=== PATIENT | male | born 1975 | race Caucasian/White ===

== ENCOUNTER 2018-11-03 06:35 | Inpatient (IN) | payer MEDICAID, OTHER ==
[~2018-11-03] VITALS: Ht 165.1 cm; Wt 76.1 kg
[2018-11-03] MEDS ORDERED: SOD CHLORIDE 0.9% 1,000 ML IV STA (06:49)
[2018-11-03] MEDS ORDERED: NALOXONE (0.4 MG/ML) INJ IV PRN (07:00)
[2018-11-03] MEDS ORDERED: FLUMAZENIL 0.5 MG INJ IV ONE (07:00)
[2018-11-03] MEDS ORDERED: SODIUM CHLORIDE 0.9% 1L BAG IV* STA (07:38)
[2018-11-03] MEDS ORDERED: CEFEPIME 2GM/50 ML (PMX) 50 ML IVPB STA (07:38)
--- NOTE | 2018-11-03 07:40 | ERD ---
ER Documentation Chief Complaint Chief Complaint sudden onset aloc and apnea per staff. no trauma. 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 The patient is normally awake and alert and in conversive according to the [place]. He said they checked on him this morning and they found him nearly apneic. EMS arrived and stated that his blood sugar was 150, he had very slow respirations they began bagging him through his trach. Patient did not lose his pulse but was slightly hypotensive. On arrival the patient is completely unresponsive. The [place] he says they did not give him any medication last night or overnight ROS All systems reviewed and are negative except as per history of present illness. Medications Home Meds Reported Medications Zinc Sulfate* (Zinc Sulfate*) 220 Mg Tablet, 220 MG GTB DAILY, TAB STOP TAKING 11/21/18 11/03/18 Ascorbic Acid* (Vitamin C*) 500 Mg Capsule.sa, 500 MG GTB DAILY, CAP 11/03/18 Valproic Acid* (Valproic Acid* Liq) 250 Mg/5 Ml Syrup, 10 ML GTB BID, ML 11/03/18 Cran/Vitc/Mannose/Inulin/Brom (Uti-Stat Liquid) 3,875 Mg/30 Ml Liquid, 30 ML GTB DAILY 11/03/18 Acetaminophen* (Acetaminophen*) 500 MG Extra Strength Tablet, 1000 MG GTB Q4H PRN for PAIN -11/21, TAB 11/03/18 Acetaminophen* (Tylenol*) 325 Mg Tablet, 650 MG GTB BID PRN for PAIN AND OR ELEVATED TEMP, TAB 11/03/18 Acetaminophen* (Tylenol*) 325 Mg Tablet, 650 MG GTB Q4H PRN for MILD PAIN LEVEL 1-3, TAB AND FEVER 101F,STOP DATE 12/21/18 11/03/18 Acetaminophen* (Tylenol*) 325 Mg Tablet, 650 MG GTB NEEDED PRN for TRACH TUBE CHANGE, TAB 11/03/18 Risperidone* (Risperdal*) 1 Mg Tablet, 2 MG GTB DAILY, TAB STOP DATE 11/05/18 11/03/18 Amino Acids/Protein Hydrolys (PRO-STAT LIQUID) 30 Ml Liquid.pkt, 30 ML GTB BID 11/03/18 Hydrocodone/Acetaminophen ([place] 5-325 Tablet) 1 Each Tablet, 1 EACH GTB Q6H PRN for PAIN 7-10, TAB 11/03/18 Multivitamin with Minerals (Multivitamins with Minerals) 1 Each Tablet, 1 EACH GTB DAILY, TAB 11/03/18 Magnesium Hydroxide* (Milk Of Magnesia*) 400 Mg/5 Ml Oral.susp, 30 ML GTB NEEDED, ML 11/03/18 Heparin Sodium,Porcine/Pf (HEPARIN SOD 5,000 UNIT/ 0.5 ML) 5,000 Unit/0.5 Ml Vial, 5000 UNIT IJ Q12H, VIAL 11/03/18 Gabapentin* (Gabapentin*) 300 Mg Capsule, 600 MG GTB BID, #180 CAP 11/03/18 Mineral Oil* (Fleet* Mineral Oil Enema) Unknown Strength Oil, 1 APPLIC OK NEEDED PRN for CONSTIPATION, ENEMA 11/03/18 Bisacodyl (Dulcolax) 10 Mg Supp.rect, 10 MG RC PRN, SUPP.RECT 11/03/18 Docusate Sodium* (Colace*) 100 Mg Capsule, 200 MG GTB QHS, #60 CAP 11/03/18 Clonidine Hcl* (Clonidine Hcl*) 0.1 Mg Tab, 0.2 MG GTB Q8H PRN for HTN, TAB HOLD FOR SBPBELOW 110 OR HR BELOW 60 11/03/18 Chlorhexidine Gluconate (Periogard) 473 Ml Mouthwash, 15 ML MM Q12H, BOTTLE 11/03/18 Atorvastatin* (Atorvastatin*) 40 Mg Tablet, 80 MG GTB QHS, #30 TAB 11/03/18 Albuterol Sulfate* (Albuterol Sulfate* Neb) 0.083%-3 Ml Neb, 2.5 MG NEB Q6H PRN for WHEEZING AND SOB, #30 VIAL AND NEEDED Q3H 11/03/18 Lactobacillus Acidophilus/Pect (Acidophilus-Pectin Capsule) 1 Each Capsule, 1 EACH GTB DAILY, CAP 11/03/18 Discontinued Reported Medications Pantoprazole Sodium (Protonix) 40 Mg Granpkt.dr, 40 MG GTB DAILY 11/03/18 Lactobacillus Acidophilus* (Lactinex*) 1 Tab Chew, 1 TAB GTB DAILY, TAB 11/03/18 Allergies Allergies: Coded Allergies: No Known Allergy (Unverified , 11/03/18) PMhx/Soc History of Surgery: Yes (TRACHOSTOMY, GASTROSTOMY) Anesthesia Reaction: No Hx Neurological Disorder: Yes (SEIZURE, AMS, HYDROCEPHALUS) Hx Respiratory Disorders: Yes (RESP FAILURE) Hx Cardiac Disorders: Yes (HYPERLIPIDEMIA) Hx Psychiatric Problems: Yes (DEPRESSION, PSYCHOSIS) Hx Miscellaneous Medical Probl: Yes (GERD, DYSPHAGIA) Hx Alcohol Use: No Hx Substance Use: No Hx Tobacco Use: No Smoking Status: Never smoker FmHx Unable to obtain due to mental status Physical Exam Vitals Vital Signs Date Temp Pulse Resp B/P (MAP) Pulse Ox O2 O2 Flow FiO2 Time Delivery Rate 11/03/18 102 22 104/72 100 Mechanical 09:30 (83) Ventilator 11/03/18 101 14 99 40 09:16 11/03/18 100 40 08:45 11/03/18 100 50 08:11 11/03/18 101 20 113/80 100 Mechanical 08:00 (91) Ventilator 11/03/18 96 14 100 100 06:50 11/03/18 99.7 97 16 68/46 (53) 100 06:48 11/03/18 99.7 96 18 68/46 (53) 100 Mechanical 06:48 Ventilator Physical Exam Const: [Well-developed, well-nourished] Head: [Atraumatic, normocephalic] Eyes: [Normal Conjunctiva, bilateral pupils are mid range and very sluggish ENT: [Normal External Ears, Nose and Mouth, moist mucus membranes.] Neck: [Full range of motion. No meningismus, no lymphadenopathy, t racheostomy is intact no signs of infection.] Resp: [Clear to auscultation bilaterally, no wheezing, rhonchi, rales] Cardio: [Regular rate and rhythm, no murmurs, S1 S2 present] Abd: [Soft, nondistended normal bowel sounds Skin: [No petechiae or rashes, no ecchymosis , no maculopapular rash] Back: Normal inspection Ext: [No cyanosis, or edema, normal inspection, Neur: GCS of 3 Psych: Unable to assess Result Diagram: 11/03/1853 11/03/1853 Results 24 hrs Laboratory Tests Test 11/03/18 06:53 11/03/18 07:35 11/03/18 08:03 White Blood Count 9.9 10^3/ul Red Blood Count 4.19 10^6/ul Hemoglobin 12.9 g/dl Hematocrit 40.7 % Mean Corpuscular Volume 97.1 fl Mean Corpuscular Hemoglobin 30.8 pg Mean Corpuscular 31.7 g/dl Hemoglobin Concent Red Cell Distribution Width 12.3 % Platelet Count 166 10^3/UL Mean Platelet Volume 10.5 fl Immature Granulocytes % 11.600 % Neutrophils % 62.3 % Segmented Neutrophils % (Manual) 62 % Band Neutrophils % (Manual) 3 % Lymphocytes % 10.4 % Lymphocytes % (Manual) 14 % Reactive Lymphocytes % (Manual) 1 % Monocytes % 14.0 % Monocytes % (Manual) 6 % Eosinophils % 1.5 % Eosinophils % (Manual) 6 % Basophils % 0.2 % Myelocytes % (Manual) 5 % Promyelocytes % (Manual) 3 % Nucleated Red Blood Cells % 0.0 /100WBC Immature Granulocytes # 1.150 10^3/ul Neutrophils # 6.2 10^3/ul Neutrophils # (Manual) 6.2 10^3/ul Band Neutrophils # 0.2 10^3/ul Lymphocytes (Manual) 1.3 10^3/ul Lymphocytes # 1.0 10^3/ul Reactive Lymphocytes # 0.0 10^3/ul Monocytes # 1.4 10^3/ul Monocytes # (Manual) 0.5 10^3/ul Eosinophils # 0.2 10^3/ul Basophils # 0.0 10^3/ul Myelocytes # 0.4 10^3/ul Promyelocytes # 0.2 10^3/ul Nucleated Red Blood Cells # 0.0 10^3/ul Platelet Estimate NORMAL Giant Platelets 1 % Polychromasia 1+ Anisocytosis 1+ Prothrombin Time 14.5 Sec Prothrombin Time Ratio 1.1 INR International 1.12 Normalized Ratio Activated Partial Thromboplast 37.1 Sec Time Sodium Level 145 mmol/L Potassium Level 3.9 mmol/L Chloride Level 103 mmol/L Carbon Dioxide Level 26 mmol/L Anion Gap 16 Blood Urea Nitrogen 14 mg/dl Creatinine 1.69 mg/dl Est Glomerular Filtrat 45 mL/min Rate mL/min Glucose Level 142 mg/dl Calcium Level 9.0 mg/dl Total Bilirubin 0.3 mg/dl Direct Bilirubin 0.00 mg/dl Indirect Bilirubin 0.3 mg/dl Aspartate Amino 61 IU/L Transf (AST/SGOT) Alanine 51 IU/L Aminotransferase (ALT/SGPT) Alkaline Phosphatase 98 IU/L Ammonia 26 umol/l Troponin I 0.335 ng/ml Total Protein 7.3 g/dl Albumin 3.8 g/dl Globulin 3.50 g/dl Albumin/Globulin Ratio 1.08 POC Venous Lactate 3.4 mmol/L Urine Color YELLOW Urine Clarity SLIGHTLY CLOUDY Urine pH 8.0 Urine Specific [place] 1.009 Urine Ketones NEGATIVE mg/dL Urine Nitrite NEGATIVE mg/dL Urine Bilirubin NEGATIVE mg/dL Urine Urobilinogen NEGATIVE mg/dL Urine Leukocyte Esterase NEGATIVE Radha/ul Urine Microscopic RBC 5 /HPF Urine Microscopic WBC 6 /HPF Urine Amorphous Crystals FEW /HPF Urine Bacteria FEW /HPF Urine Hemoglobin 1+ mg/dL Urine Glucose 1+ mg/dL Urine Total Protein 2+ mg/dl Current Medications Medications Dose Sig/Hugo Start Time Status Last (Trade) Ordered Route PRN Stop Time Admin Dose Reason Admin Naloxone 1 mg Q2M PRN 11/03/18 11/03/18 HCl IV LETHARGY 07:00 07:19 (Narcan) Sodium 1,000 ml @ Q1H STAT 11/03/18 DC 11/03/18 Chloride 1,000 mls/hr IV 06:49 07:16 11/03/18 07:48 Flumazenil 0.5 mg ONCE ONCE 11/03/18 DC 11/03/18 (Romazicon) IV 07:00 07:18 11/03/18 07:01 Sodium 2,180 ml BOLUS OVER 2 11/03/18 DC 11/03/18 Chloride HOURS STAT 07:38 08:11 (NS) IV* 11/03/18 08:06 Cefepime HCl 50 ml @ ONCE STAT 11/03/18 DC 11/03/18 100 mls/hr IVPB 07:38 08:21 11/03/18 08:07 Vancomycin 250 ml @ ONCE ONCE 11/03/18 DC 11/03/18 HCl 125 mls/hr IVPB 08:00 08:52 11/03/18 09:59 Enoxaparin 70 mg ONCE SC 11/03/18 11/03/18 Sodium 08:00 08:12 (Lovenox) Naloxone 1 mg ONCE ONCE 11/03/18 DC 11/03/18 HCl IV 08:30 08:21 (Narcan) 11/03/18 08:31 Procedures/MDM EKG: Rate/Rhythm: Sinus tachycardia QRS, ST, QT: NORMAL OK, QRS, QT] Impression: Sinus tachycardia [place] [id number] Radiology Main Line: [phone] DIAGNOSTIC IMAGING REPORT Patient: WILLIAMS JENNINGS : 1975 Age: 43 Sex: M [id number] DOS: 11/03/18 0649 Ordering MD: HENRY CARABALLO DO Location: E/R Room/Bed: PROCEDURE: CT head without intravenous contrast CLINICAL INDICATION: Altered mental status. COMPARISON: None TECHNIQUE: Axial CT images from skull base to vertex with coronal and sagittal reformats. DOSE: The estimated administered radiation dose was CTDI vol = 39.20 mGy. DLP = 554.95 mGy-cm. One or more of the following dose reduction techniques were used: automated exposure control, adjustment of the mA and/or kV according to patient size, or use of iterative reconstruction. DICOM images are available. FINDINGS: Parenchyma: There is a left transfrontal ventriculostomy catheter coursing through the left frontal horn terminating near the left foramen of [place]. Beam hardening artifact associated with endovascular coils at the expected location an anterior communicating artery aneurysm are identified. No acute hemorrhage, large territorial infarction, or mass. There is encephalomalacia of the right inferior frontal lobe. The fuller-white matter junctions are intact. No space occupying intra-axial masses or extra-axial fluid collections are present. There is mild parenchymal volume loss. Ventricles: No ventriculomegaly or ventricular effacement. Extra-axial spaces: No herniation or midline shift. Paranasal sinuses: Clear. Mastoids and middle ears: Trace effusions of the bilateral mastoid sinuses. Visualized orbits: Normal. Vessels: There is no calcified atherosclerotic arterial plaque identified in the internal carotid arteries. Bones: Normal. Extracranial soft tissues: Normal. Additional comment: None. IMPRESSION: 1. No acute intracranial pathology. 2. Left transfrontal ventriculostomy catheter coursing through the left frontal horn terminating near the left foramen of [place]ro. No evidence of hydrocephalus. 3. 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 4. Right inferior frontal lobe encephalomalacia. 5. Trace effusions of the bilateral mastoid sinuses. RPTAT: HRSR Lui Barron, Physician Date Time Electronically viewed and signed by Lui Barron Physician on 11/03/2018 07:28 RR/ CC: HENRY CARABALLO DO [id number] DIAGNOSTIC IMAGING REPORT Patient: WILLIAMS JENNINGS : 1975 Age: 43 Sex: M MR #: [id number] DOS: 11/03/18 0649 Ordering MD: HENRY CARABALLO DO Location: E/R Room/Bed: PROCEDURE: XR Chest. CLINICAL INDICATION: Altered mental status TECHNIQUE: Single frontal view of the chest. COMPARISON: None available FINDINGS: Support lines and tubes: Tracheostomy tube tip well positioned at the level of the mid tracheal shadow. Cardiac/vascular structures: Mildly enlarged cardiomediastinal silhouette. Pulmonary: Bilateral basilar airspace opacities. Small left pleural effusion. No evidence of pneumothorax. Osseous structures: Normal Soft tissues: Normal IMPRESSION: 1. Appropriate position of tracheostomy tube. 2. Bilateral basilar airspace opacities representing atelectasis or pneumonia. 3. Small left pleural effusion. RPTAT:AAJJ Cailin Harkins, Physician Date Time Electronically viewed and signed by Cailin Harkins Physician on 11/03/2018 07:22 MH/ CC: HENRY CARABALLO DO [id number] Patient received Narcan 1 mg IV and he woke up. He is now awake, responsive to pain, looking around. Patient has elevated lactate of 3.4. Admit MDM: Patient's infectious symptoms have not stabilized and the patient is at risk of rapid decompensation. The patient will be admitted for careful hydration, antibiotic therapy, and infectious source control. Severe Sepsis criteria: Infectious source: Pneumonia End organ damage indicated by: Elevated lactate Lactate > 2.0 mmol/L Hypotension (SBP < 90 or >40 mmHG drop or MAP < 65) Acute Resp Failure (sat < 92% w/o oxygen) Legal Cashier > 2.0 INR > 1.5 Plt < 100 Bili > 2 Sepsis Management: Time of recognition of severe sepsis: At time of lactate Within 3 hours of recognition: Blood cultures x 2 before broad-spectrum antibiotics: yes 30 ml/kg NS bolus completed Initial lactate 3.4 Repeat lactate pending Septic Shock Assessment: Any lactic acid > 4.0 no Persistent hypotension (SBP < 90 or 40 mmHg drop, MAP < 65) despite 30 mL/kg IV fluid bolusno A focused sepsis perfusion/reperfusion reassessment examination was performed post 30ml/kg bolus @: Temp, BP, HR, RR, Pox Persistent Hypotension Treatment: Comfort care no Hypotension caused by: pt. baseline, med-induced, erroneous value, condition other than infection no Refusal by patient/decision maker for: blood draw, IVF, Antibiotics, Pressorsno Central line Vasopressor started Norepinehrine I considered further perfusion assessment with CVP measurement, SCVO2, bedside ultrasound volume assessment, passive leg raise, trial of further fluid bolus and proceeded with. Accepting Care Team Current data and ongoing care discussed. Time: Admitting Physician: Floor Sweeper(s): Outstanding Data: none Critical Care Time: 35 minutes Treatments/Evaluations: Close monitoring and treatment of unstable vital signs, cardiorespiratory, and neurologic status, while maintaining tight balance of fluid, respiratory, and cardiac interventions. This includes the administration of emergency fluid management while maintaining close respiratory support as well as the provision of immediate and broad-spectrum antibiotic therapy, while performing a simultaneous assessment for possible sources in order to direct targeted therapy. This time includes discussing the case with the patient and the patient's family. This time also includes the consideration for invasive and chemical support to prevent cardiopulmonary collapse. This time does not include all procedures stated elsewhere in this record. This time also includes reviewing old records, labs and radiological studies. This time includes examining and re-examining the patient. Additionally, this time also includes arranging care with admitting and consulting physicians. Patient's mental status was due to narcotic overdose. long term report stating given many narcotics ever was found [place] on his as needed list. Narcan to reverse the overdose and he is now more awake and responsive. He does have bilateral opacities in his lungs with elevated lactic acid which may be due to pneumonia or just being in a hypoxic state. Patient's troponin is elevated at 0.33, likely due to cardiac sweating from sepsis/[place]ar[place] overdose. Treated with Lovenox 70 mg subcu Departure Diagnosis: Primary Impression: Sepsis Sepsis type: sepsis due to unspecified organism Qualified Codes: A41.9 - Sepsis, unspecified organism Additional Impressions: Narcotic overdose Encounter type: initial encounter Injury intent: accidental or unintentional Qualified Codes: T40.601A - Poisoning by unspecified n arcotics, accidental (unintentional), initial encounter Pneumonia Pneumonia type: due to unspecified organism Laterality: bilateral Lung location: lower lobe of lung Qualified Codes: J18.1 - Lobar pneumonia, unspecified organism Condition: Stable HENRY CARABALLO DO November 03, 2018 07:40
[2018-11-03] MEDS ORDERED: ENOXAPARIN 80 MG/0.8 ML SYG SC SCH ×2 (08:00→20:00)
[2018-11-03] MEDS ORDERED: VANCOMYCIN 1 GM (PMX) 250 ML IVPB ONE (08:00)
[2018-11-03] MEDS ORDERED: NALOXONE 2 MG SYG IV ONE (08:30)
[2018-11-03] MEDS ORDERED: LACTINEX GTB (09:57)
[2018-11-03] MEDS ORDERED: LACT1CAP4 GTB (09:58)
[2018-11-03] MEDS ORDERED: ALBU2.5V3 NEB (09:59)
[2018-11-03] MEDS ORDERED: ATOR40TA68 GTB (10:01)
[2018-11-03] MEDS ORDERED: CHLO473M2 MM (10:03)
[2018-11-03] MEDS ORDERED: CLON-379 GTB (10:05)
[2018-11-03] MEDS ORDERED: DOCU-144 GTB (10:06)
[2018-11-03] MEDS ORDERED: BISA10SU55 RC (10:07)
[2018-11-03] MEDS ORDERED: MINE133E23 PR (10:08)
[2018-11-03] MEDS ORDERED: HEPA500021 IJ (10:09)
[2018-11-03] MEDS ORDERED: GABA300C16 GTB (10:09)
[2018-11-03] MEDS ORDERED: MAGN400O19 GTB (10:10)
[2018-11-03] MEDS ORDERED: MULT-105 GTB (10:11)
[2018-11-03] MEDS ORDERED: AMIN30LI GTB (10:12)
[2018-11-03] MEDS ORDERED: HYDR-4011 GTB (10:12)
[2018-11-03] MEDS ORDERED: PANT40SU GTB (10:13)
[2018-11-03] MEDS ORDERED: RISP-7 GTB (10:15)
[2018-11-03] MEDS ORDERED: ACET-141 GTB (10:19)
[2018-11-03] MEDS ORDERED: ACET325T33 GTB ×3 (10:19)
[2018-11-03] MEDS ORDERED: CRAN3875 GTB (10:20)
[2018-11-03] MEDS ORDERED: VLP250480 GTB (10:21)
[2018-11-03] MEDS ORDERED: ASCO500C7 GTB (10:22)
[2018-11-03] MEDS ORDERED: ZINC220T GTB (10:23)
[2018-11-03] MEDS ORDERED: ACETAMINOPHEN 325 MG TAB PO PRN (10:30)
[2018-11-03] MEDS ORDERED: SOD CHLORIDE 0.9% 1,000 ML IV SCH (10:30)
[2018-11-03] MEDS ORDERED: ONDANSETRON 4 MG INJ IV PRN (10:30)
[2018-11-03] MEDS ORDERED: DOCUSATE SODIUM 100 MG CAP PO PRN (12:00)
[2018-11-03] MEDS ORDERED: BISACODYL 10 MG SUPP PR PRN (12:00)
[2018-11-03] MEDS ORDERED: VANCOMYCIN IV PER PHARMACY XX SCH (12:00)
[2018-11-03] MEDS ORDERED: hydrALAzine 20 MG INJ IV PRN (12:00)
[2018-11-03] MEDS ORDERED: NACL 0.9% 3 ML SYG IV SCH (12:00)
[2018-11-03] MEDS ORDERED: NITROGLYCERIN (SL) 0.4 MG TAB SL PRN (12:00)
[2018-11-03] MEDS: SOD CHLORIDE 0.45% 1,000 ML IV SCH (13:22)
[2018-11-03] MEDS: PIPER-TAZO 3.375 GM IV (PMX) 100 ML IVPB SCH ×2 (13:23→21:29)
[2018-11-03] MEDS: CHLORHEXIDINE GLUCONATE 15 ML UD CUP MM SCH ×2 (13:48→23:46)
--- NOTE | 2018-11-03 16:41 | HP ---
DATE OF ADMISSION: 11/03/2018 IDENTIFICATION: This is a 43-year-old male. CHIEF COMPLAINT: Sent in from nursing facility because of altered level of consciousness and apnea. 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 earlier today to the ER. The patient over there at baseline apparently is normal, awake and aler t and conversive according to the staff; however, they found an apneic this morning and he had altere d level of consciousness. They checked his blood sugar. It was actually in the normal range 150, bu t he appeared to have slow respirations and they actually began bagging him through the tracheostomy site. The patient was also found to have a slightly low blood pressure and the patient became more u nresponsive, so he was transferred over here to the ER. Over here, he had a head CT scan performed t hat showed no acute intracranial pathology, but there is a left transfrontal ventriculostomy catheter coursing into the left frontal horn terminating near the left foramen of Monro but no hydrocephalus noted. 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 The patient has chest x-ray as well that showed signs of bi lateral airspace opacity representing atelectasis or pneumonia and he was given antibiotics in the ER today. His white blood cell count was normal. He was also found with elevated troponin today 0.335 and lactic acid was high at 3.4. PAST MEDICAL HISTORY: As above, history of depression and seizures. ALLERGIES: NO KNOWN DRUG ALLERGIES. HOME MEDICATIONS: Based on records: 1. Albuterol nebulizer q.6 hours p.r.n. 2. Heparin 5000 units subcutaneously b.i.d. 3. Atorvastatin 80 mg at bedtime. 4. Clonidine 0.2 mg p.o. q.8 hours p.r.n. 5. Tylenol 650 p.r.n. 6. Gabapentin 600 mg b.i.d. 7. [place] 5/325 q.6 p.r.n. 8. Risperdal 2 mg daily. 9. Valproic acid 10 mL b.i.d. 10. Zinc sulfate 220 mg daily. 11. Chlorhexidine 15 mL q.12 hours. 12. Dulcolax 10 mg per rectal p.r.n. 13. Colace 200 mg at bedtime. 14. Lactobacillus supplementation. 15. Milk of Magnesia 30 mL daily p.r.n. 16. Fleet enema per rectal as needed p.r.n. 17. Vitamin C 500 mg daily. 18. Multivitamin 1 tab daily. 19. Pro-Stat liquid 30 mL b.i.d. PAST SURGICAL HISTORY: Again, he has had AGRICULTURAL EQUIPMENT DESIGN ENGINEER shunt placement apparently about 3 months ago at outside hospital secondary to the subarachnoid hemorrhage, also tracheostomy placed in the past and G-tube p lacement. SOCIAL HISTORY: Negative for smoking or drinking or IV drug abuse. PHYSICAL EXAMINATION: VITAL SIGNS: Today, T-max 99.7, pulse 97 to 102, respirations 14 to 22, blood pressure is 68 to 113 systolic over 46 to 80 diastolic, satting at 100% on mechanical ventilation, FiO2 of 40%. GENERAL: The patient is lying in bed, opens eyes, but nonconversant. Family is at bedside. HEENT: Pupils are equal, round, reactive to light. Extraocular muscles are intact. NECK: Supple. Tracheostomy site looks clean, dry and intact. RESPIRATORY: Slightly distant breath sounds bilaterally. CARDIOVASCULAR: S1, S2 heard. No murmurs, rubs or gallops. ABDOMEN: G-tube in place. Normal bowel sounds. No rebound or guarding. MUSCULOSKELETAL: No lower extremity edema bilaterally. NEUROLOGIC: Unable to fully assess. Of note, baseline GCS is 3. LABORATORIES: Sodium 145, potassium 3.9, chloride 103, CO2 of 26, BUN 14, creatinine 1.69, glucose 1 42. LFTs are normal. First troponin is elevated at 0.335. CBC is normal. Coags are within normal limits. UA shows nitrites negative, leukocyte esterase positive. Valproic acid level less than 32. DIAGNOSTIC DATA: We mentioned the imaging findings. ASSESSMENT AND PLAN: A 43-year-old male with history of subarachnoid hemorrhage with subsequent AGRICULTURAL EQUIPMENT DESIGN ENGINEER s arreola, tracheostomy placement, G-tube placement, hypertension, high cholesterol, depression, gastroeso phageal reflux disease, who comes in from outside facility with signs of pneumonia, elevated troponin s, slight lactic acidosis and renal insufficiency. 1. Apnea and altered mental status again likely secondary to combination of patient's pneumonia and possible non-ST elevation myocardial infarction. Again for his pneumonia, we will admit him and put him on broad-spectrum antibiotics. Follow up TSH, A1c, lipid panel. Consider starting low-dose IV f luids. We will give Tylenol p.r.n. pain and fevers. 2. Elevated troponins again signs of non-ST elevation myocardial infarction. We will continue to tr end his troponins. We will give him a dose of Lovenox and obtain a cardiology consult and echocardio gram as well. Put him on high dose aspirin and high dose Lipitor, Morphine p.r.n., nitroglycerin p.r .n. 3. History of hypertension. Again, blood pressure is presently stable. Continue to monitor for now . He is on hydralazine p.r.n. 4. History of high cholesterol. Continue Lipitor. Follow up lipid panel. 5. Tracheostomy placement. Continue oxygen supplementation via trach via mechanical ventilation. C onsider pulmonary consult. 6. Gastrointestinal prophylaxis. Pepcid. 7. Deep venous thrombosis prophylaxis. He is getting a dose of Lovenox. 8. History of gastroesophageal reflux disease. Again, he is on H2 kendall. 9. History of depression. Ativan p.r.n. 10. Renal insufficiency. Creatinine is 1.69. We will get a renal consult. Continue IV fluids. Dictated By: BRANDT REILLY/PRISCILLA Conf#: [id number] DID#: [id number]
[2018-11-03] MEDS: VANCOMYCIN 750 MG (PMX) 250 ML IVPB SCH (17:41)
[2018-11-03 18:08] VITALS: BP 131/83; PULSE 99; RESP 20
[2018-11-03 19:25] VITALS: RESP 17
--- NOTE | 2018-11-03 19:59 | CONS ---
DATE OF ADMISSION: 11/03/2018 DATE OF CONSULTATION: 11/03/2018 TYPE OF CONSULTATION: Nephrology. PHYSICIAN REQUESTING CONSULT: Brandt Ramírez MD HISTORY OF PRESENT ILLNESS: This is a 43-year-old male with past medical history of subarachnoid hem orrhage, history of PREPARATION ROOM MANAGER shunt, history of ventilator dependent respiratory failure, history of encepha lopathy, history of dyslipidemia, history of hypertension, who presents from [facility] nurse [facility] Emergency Room. The patient apparently was at his baseline, is awake and alert . This morning, the patient was noted to be at a slow respirations, is noted to be hypertensive. Th e patient is more unresponsive. As a result, he was transferred to emergency room. Upon arrival, th e patient had a CT scan which showed no acute intracranial pathology. The patient had evidence of le ft ventriculostomy catheter with left frontal horn. No evidence of hydrocephalus. The patient also had a chest x-ray which showed bilateral airspace opacities. In the emergency room, the patient was started on antibiotics for possibility of pneumonia. In terms of patient's renal history, the patient's previous baseline creatinine is unknown. On admis gertrudis, the patient had a creatinine 1.69 mg/dL. The patient was noted urinary retention and was place d on Higgins catheter with over 1 liter urinary output. There have been no reports of hemoptysis, gary temesis, hematochezia. PAST MEDICAL HISTORY: As stated above, history of intracranial hemorrhage, history of respiratory fa ilure, history of subarachnoid hemorrhage, history of seizure disorder, history of neuropathy. PAST SURGICAL HISTORY: Status post trach, status post PEG, status post PREPARATION ROOM MANAGER shunt. FAMILY HISTORY: No family history of kidney disease. SOCIAL HISTORY: Does not drink, smoke or do drugs. MEDICATIONS: Have been reviewed. REVIEW OF SYSTEMS: Unable due to lack review of systems as the patient is obtunded. Pertinent posit livia as obtained by reviewing medical records, speaking to hospital staff, stated in HPI, otherwise n egative. PHYSICAL EXAMINATION: VITAL SIGNS: Blood pressure is 122/89, respirations 20, pulse 88, temperature 97.4. HEENT: Head is normocephalic. NECK: Supple. HEART: Regular rate. LUNGS: Show diminished breath sounds at the base. ABDOMEN: Soft. Positive PEG. EXTREMITIES: Negative for clubbing, cyanosis. No edema. DERMATOLOGIC: No rashes. MUSCULOSKELETAL: No joint effusion. NEUROLOGIC: No change in exam. LABORATORY DATA: From 11/03/2018 was reviewed. The patient's lactic acid is 3.4. Urinalysis was re viewed. ASSESSMENT AND PLAN: This is a 43-year-old male who presents with: 1. Nonoliguric acute kidney injury with unknown baseline creatinine, possible chronic kidney disease . Etiology may be secondary to hemodynamics, sepsis. Urinalysis was reviewed, which showed evidence of mild pyuria and positive proteinuria. Plan at this point is to repeat UA with microanalysis, dunia ck urine electrolytes. We will check renal ultrasound to evaluate renal parenchyma. Otherwise, cont inue current treatment plan, supportive care and renally dose all medications. Continue antibiotics and IV fluids. 2. Anemia. Monitor hemoglobin and hematocrit levels. 3. Mineral bone disorder. Monitor calcium and phosphorus levels. 4. Lactic acidosis. Etiology is likely secondary to sepsis. Continue current IV fluids, IV antibio tics, monitor closely. 5. Ventilator dependent respiratory failure. Vent settings have been reviewed. Continue to monitor . 6. Acute encephalopathy. Etiology is unclear. Questionable sepsis. Continue to monitor. Continue neurology evaluation. 7. History of hypertension. The patient is currently hypotensive. 8. Dyslipidemia. Continue statin therapy. Thank you, Dr. Ramírez, for this interesting consult. It will be a pleasure to follow patient with you throughout the hospital course. Dictated By: RENEE DUONG/NTS Conf#: [id number] DID#: [id number] CC: BRANDT RAMÍREZ;*EndCC*
[2018-11-03 20:00] VITALS: BP 126/74; PULSE 104; PULSE 94; RESP 18
[2018-11-03 20:01] VITALS: Ht 165.1 cm; Wt 76.1 kg
[2018-11-03] MEDS ORDERED: ATORVASTATIN 80 MG TAB PO SCH (21:00)
[2018-11-03] MEDS ORDERED: NON-FORMULARY/PATIENT OWN MED (Amino Acids/Protein Hydrolys (Pro-Stat Liquid) 30 ML) GTB SCH (21:00)
[2018-11-03] MEDS ORDERED: HEPARIN 5,000 UNIT/0.5 ML VIAL SC SCH (21:00)
--- NOTE | 2018-11-03 21:15 | CONS ---
DATE OF ADMISSION: 11/03/2018 DATE OF CONSULTATION: 11/03/2018 TYPE OF CONSULTATION: Cardiology. REASON FOR CONSULTATION: Positive troponin, assess significance. REQUESTING PHYSICIAN: Brandt Ramírez MD, from the hospitalist service. HISTORY OF PRESENT ILLNESS: Mr. Churchill is a 43-year-old male with a history of subarachnoid hemorrhage occurred 3 months ago, status post SURVEYOR HELPER ROD shunt placement with subsequent trach placement at that time , dyslipidemia, hypertension who was brought into the ER from a longterm facility after being found apneic with altered mental state with his normal mental status is awake, alert, conversant. He states they checked his blood sugars which were normal. They bagged him for a short time from trach site and had been transferred to the ER. 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 The patient underwent a chest x-ray showing signs of bilateral air space opacity representing atelectasis or pneumonia that are regular white blood cell count and then he was noted to have a mildly elevated troponin of 0.335; therefore, cardiology consultation was requested. The patient's EKG had revealed sinus tachycardia, rate of 118, normal axis, normal intervals, incomplete right bundle branch block and secondary repolarization abnormalities. The patient has now been admitted to the floor and placed on telemetry revealing sinus tachycardia at this time. The patient does not clearly respond to questioning pertaining to chest pain or shortness of breath at this time. PAST MEDICAL HISTORY: As above in HPI. MEDICATIONS CURRENTLY IN HOSPITAL: 1. Pepcid 20 mg IV b.i.d. 2. Aspirin 325 mg daily. 3. Vitamin C 500 daily. 4. Zinc sulfate 220 mg daily. 5. Multivitamins and minerals. 6. Lipitor 80 mg at bedtime. 7. Heparin 5000 subQ q.12. 8. Folic acid 5 mg b.i.d. 9. Lovenox 70 mg subQ x1. 10. Zosyn. 11. Zofran. 12. Tylenol. 13. [place]. 14. DuoNeb. 15. Vancomycin. 16. Hydralazine. 17. Dulcolax. 18. Clonidine. 19. IV fluid hydration at 75 mL an hour. ALLERGIES: NO KNOWN DRUG ALLERGIES. SOCIAL HISTORY: No current tobacco, EtOH or illicit drug use. FAMILY HISTORY: No history of sudden cardiac or early CAD. REVIEW OF SYSTEMS: As above in HPI. CONSTITUTIONAL: No fevers, chills. PULMONARY: Chronic respiratory failure, status post trach. GASTROINTESTINAL: Dysphagia, status post G-tube. GENITOURINARY: No hematuria. MUSCULOSKELETAL: Degenerative joint disease. PSYCHIATRIC: No documented psych history. NEUROLOGIC: Altered mental state, history of subarachnoid hemorrhage. PHYSICAL EXAMINATION: VITAL SIGNS: Temperature 98.1, blood pressure 131/83, pulse 99, respiratory rate 20, satting 98%. GENERAL: The patient is alert, awake, but non-conversant. NECK: JVP is approximately 9 cm of water. Tracheostomy in place. CHEST: Upper chest rhonchus sounds. HEART: Tachycardic, regular rhythm, normal S1, S2, I/ systolic murmur, nondisplaced PMI. ABDOMEN: Positive bowel sounds, soft, positive G-tube. EXTREMITIES: No significant pitting edema, 1+ pulses bilateral posterior tibial. LABORATORY DATA: Most recently from today, white blood cell count 9.9, hemoglobin 12.9, platelet count of 166. Troponin from 0.335 subsequently increased INR 1.1. UA: Borderline positive. 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 Chest x-ray is revealing appropriate positioned tracheostomy tube, bilateral basilar airspace opacities. ELECTROCARDIOGRAM: As above in HPI. No further electrocardiograms for my review at this time. IMPRESSION: 1. Positive troponin with uptrending consistent with non-ST elevation myocardial infarction. 2. Abnormal electrocardiogram with incomplete right bundle branch block. 3. Tachycardia, mild. 4. Chronic respiratory failure, status post tracheostomy. 5. Dysphagia, status post G-tube. 6. History of subarachnoid hemorrhage. 7. History of ventriculoperitoneal shunt. RECOMMENDATIONS: 1. At this time, we would maintain the patient on telemetry monitoring to follow rhythm and rate control closely. 2. We would continue to trend the patient's cardiac enzymes, assess for any significant ongoing cardiac damage. 3. Continue the patient's aspirin at this time and as possible we will place the patient on Lovenox systemic anticoagulation subcutaneously daily given renal failure. 4. We will initiate patient on low dose beta kendall to decrease demand in the setting of positive troponins. 5. Check a 2D echo for this patient's ejection fraction, wall motion or rule out major valve abnormalities. 6. Continue the patient's high dose statin. 7. Follow the patient's volume status closely and we will consider gentle fluid hydration. Follow the patient's creatinine closely. 8. Follow up all culture data and continue broad-spectrum antibiotics. Thank you for allowing me to take part in the care of this patient. I will continue to follow him closely with you with further recommendations to be made as the patient progresses through his inpatient hospital clinical course. Dictated By: NORMAN KINGSTON/PRISCILLA Conf#: [id number] DID#: [id number] CC: BRANDT RAMÍREZ;*Gunnar* MTDD
[2018-11-03 21:27] VITALS: RESP 14
[2018-11-03] MEDS: ATORVASTATIN 40 MG TAB GTB SCH (21:30)
[2018-11-03] MEDS: VALPROIC ACID LIQUID CUP 250 MG/5 ML CUP GTB SCH (21:32)
[2018-11-03] MEDS: METOPROLOL 25 MG TAB PO SCH (21:32)
--- NOTE | 2018-11-03 21:46 | RADRPT ---
Echocardiogram Report Patient Name: WILLIAMS JENNINGSPatient ID: [id number] : 1975 (43y 2m)Study Date: 11/03/2018 12:41:31 PM Gender: MAccession #: [id number] Tech: Tacho Piña [facility] Location: [facility] Ref.Physician: BRANDT RAMÍREZ Height(Cm): BSA: Weight(Kg): Quality: AdequateOrder Physician: BRANDT RAMÍREZ Account #: Procedures: Echocardiographic Report: Transthoracic echocardiogram with complete 2D, M-Mode, and doppler examination. Indications: High Trop. Measurements: 2D/M Mode Doppler Measurement Value Normal Range Measurement Value Normal Range LVIDd 2D 4.6 [ 4.2 - 5.8 ] cm AV Peak Julio 1.3 [ 100.0 - 170.0 ] cm/sec LVIDs 2D 2.7 [ 2.5 - 4.0 ] cm AV Peak PG 7.0 [ 2.0 - 9.0 ] mmHg LVPWd 2D 1.0 [ 0.6 - 1.0 ] cm LVOT Peak Julio 1.0 [ 70.0 - 110.0 ] cm/sec IVSd 2D 1.0 [ 0.6 - 1.0 ] cm LVOT Peak PG 4.0 [ 2.0 - 6.0 ] mmHg AoR Diam 2D 3.0 [ 2.6 - 3.4 ] cm MV E Peak Juilo 0.7 [ 60.0 - 130.0 ] cm/sec EDV 2D 95.4 [ 62.0 - 150.0 ] ml MV A Peak Julio 0.5 [ 100.0 - 120.0 ] cm/sec ESV 2D 28.0 [ 21.0 - 61.0 ] ml MV E/A 1.3 [ 0.8 - 1.5 ] ratio EF 2D 70.6 [ 52.0 - 72.0 ] percent MV Decel Time 180 [ 104 - 258 ] msec LA Dimen 2D 3.5 [ 3.0 - 4.0 ] cm Lat E` Julio 0.1 [ 10.0 - 15.0 ] cm/sec Lateral E/E` 7.0 [ 1.0 - 2.0 ] ratio MV E/A 1.3 [ 0.8 - 1.5 ] ratio TR Peak Julio 2.4 [ 100.0 - 280.0 ] cm/sec TR Peak PG 23.0 mmHg RVSP 31.0 [ 10.0 - 36.0 ] mmHg Findings: Left Ventricle: Lower limits of normal systolic function. Normal left ventricular cavity size. Normal left ventricular wall thickness. Ejection fraction is visually estimated at 50-55 %. Tissue Doppler/Mitral Doppler indices are consistent with pseudonormalization with mildly elevated left atrial pressure (Stage II diastolic dysfunction). Right Ventricle: Normal right ventricular systolic function. Moderate enlargement of right ventricle. Left Atrium: The left atrium is normal in size. Right Atrium: There is moderate enlargement of right atrium. Mitral Valve: Mild mitral leaflet calcification. Mild mitral annular calcification. Trace mitral regurgitation. Aortic Valve: No hemodynamically significant aortic stenosis by doppler. Aortic cusps appear mildly calcified. Tricuspid Valve: Normal appearance of the tricuspid valve. Estimated peak PA systolic pressure 31 mmHg. There is mild tricuspid regurgitation. Pericardium: Normal pericardium with no significant pericardial effusion. Left pleural effusion seen. Aorta: Normal aortic root. IVC: Inferior vena cava without respiratory collapse, however, patient on ventilator. Conclusions: Lower limits of normal systolic function. Normal left ventricular cavity size. Normal left ventricular wall thickness. Ejection fraction is visually estimated at 50-55 %. Tissue Doppler/Mitral Doppler indices are consistent with pseudonormalization with mildly elevated left atrial pressure (Stage II diastolic dysfunction). Normal right ventricular systolic function. Moderate enlargement of right ventricle. Mild mitral leaflet calcification. Mild mitral annular calcification. Trace mitral regurgitation. Normal appearance of the tricuspid valve. Estimated peak PA systolic pressure 31 mmHg. There is mild tricuspid regurgitation. Electronically Signed By: Silviano Russell 2018-11-03 21:45:10 PDT
[2018-11-03 22:00] VITALS: BP 118/63; PULSE 82; RESP 18
[2018-11-03 23:20] VITALS: RESP 16
[2018-11-03] MEDS: LORAZEPAM 2 MG INJ IV PRN (23:46)
[2018-11-04] VITALS (28 sets, daily range): BP systolic 104–170; BP diastolic 57–95; PULSE 54–104; RESP 14–28
[2018-11-04] MEDS: SOD CHLORIDE 0.45% 1,000 ML IV SCH ×3 (02:13→23:30)
[2018-11-04] MEDS: PIPER-TAZO 3.375 GM IV (PMX) 100 ML IVPB SCH ×4 (02:16→17:09)
[2018-11-04] MEDS: VANCOMYCIN 750 MG (PMX) 250 ML IVPB SCH ×2 (06:16→17:52)
[2018-11-04] MEDS: LORAZEPAM 2 MG INJ IV PRN ×2 (07:18→21:35)
[2018-11-04] MEDS: MULTIVITAMINS/MINERALS TAB PO SCH (08:09)
[2018-11-04] MEDS: FAMOTIDINE 20 MG INJ IV SCH ×2 (08:09→21:18)
[2018-11-04] MEDS: VALPROIC ACID LIQUID CUP 250 MG/5 ML CUP GTB SCH ×2 (08:09→21:16)
[2018-11-04] MEDS: LACTOBACILLUS RHAMNOSUS CAP PO SCH (08:10)
[2018-11-04] MEDS: ASPIRIN (EC) 325 MG TAB PO SCH (08:10)
[2018-11-04] MEDS: ZINC SULFATE 220 MG CAP GTB SCH (08:10)
[2018-11-04] MEDS: METOPROLOL 25 MG TAB PO SCH ×2 (08:10→21:21)
[2018-11-04] MEDS: ASCORBIC ACID 500 MG TAB GTB SCH (08:10)
[2018-11-04] MEDS: ENOXAPARIN 80 MG/0.8 ML SYG SC SCH (08:25)
[2018-11-04] MEDS ORDERED: NON-FORMULARY/PATIENT OWN MED (Cran/Vitc/Mannose/Inulin/Brom (Uti-Stat Liquid) 30 ML) GTB SCH (09:00)
--- NOTE | 2018-11-04 10:33 | PN ---
DATE: 11/04/2018 SUBJECTIVE: The patient is stable, no events overnight. OBJECTIVE: VITAL SIGNS: Blood pressure is 125/68, respirations 18, pulse 87, temperature 98.7. HEENT: Head is normocephalic. NECK: Supple. HEART: Regular rate. LUNGS: Show diminished breath sounds at the base. ABDOMEN: Soft, nontender to palpation without rebound or guarding. EXTREMITIES: Negative for clubbing, cyanosis, no edema. DERMATOLOGIC: No rashes. MUSCULOSKELETAL: No joint effusion. NEUROLOGIC: No change in exam. MEDICATIONS: Reviewed. LABORATORY DATA: Reviewed. IMAGING STUDIES: Reviewed. ASSESSMENT AND PLAN: 1. Nonoliguric acute kidney injury with unknown baseline creatinine. Etiology of acute kidney injur y is possibly multifactorial secondary to sepsis, hemodynamics, urinary retention. The patient's marybel al function has improved after Higgins catheter placement, IV fluids and antibiotic therapy. At this p oint, continue current treatment plan, supportive care, renally dose all medications. 2. Anemia. Monitor hemoglobin and hematocrit levels. 3. Mineral bone disorder. Continue to monitor calcium and phosphorus levels. 4. Lactic acidosis secondary to sepsis, improved. Continue to monitor. 5. Ventilator-dependent respiratory failure. Vent settings have been reviewed. Continue to monitor . 6. Acute encephalopathy, etiology is unclear, questionable sepsis. Continue to monitor. Consider n eurologic evaluation. 7. Hypertension. Continue to monitor. 8. History of dyslipidemia. Continue statin therapy. 9. Sepsis secondary to bacteremia. Underlying source is unclear, possible urinary tract infection. Continue current antibiotic therapy. Follow up cultures. 10. Elevated troponin, possible non-ST elevation myocardial infarction. Continue medical management . Follow up with cardiology. 11. Arrhythmia. Continue to monitor closely. 12. History of subarachnoid hemorrhage. 13. History of RECORD CLERK shunt. Dictated By: RENEE KEENAN DO NR/NTS Conf#: [id number] DID#: [id number] CC: BRANDT RAMÍREZ;*EndCC*
--- NOTE | 2018-11-04 12:03 | PN ---
Date/Time of Note Date/Time of Note DATE: 11/04/18 TIME: 11:54 Assessment/Plan VTE Prophylaxis Risk score (from Ns)>0 risk: 5 SCD applied (from Ns): No SCD contraindicated: other Pharmacological prophylaxis: LMWH Lines/Catheters IV Catheter Type ([facility] Saline Lock Urinary Cath still in place: Yes Reason Cath still needed: urinary retention Assessment/Plan Hospital Course S: Patient was more agitated this morning, and had to be put on restraints and given Ativan. Seen by renal and cardiology teams in the last 24 hours. O: VS - see below PHYSICAL EXAMINATION: GENERAL: lying in bed, opens eyes HEENT: Pupils are equal, round, reactive to light. Extraocular muscles are intact. NECK: Supple. Tracheostomy site looks clean, dry and intact. RESPIRATORY: Slightly distant breath sounds bilaterally. CARDIOVASCULAR: S1, S2 heard. No murmurs, rubs or gallops. ABDOMEN: G-tube in place. Normal bowel sounds. No rebound or guarding. MUSCULOSKELETAL: No lower extremity edema bilaterally. NEUROLOGIC: Unable to fully assess. ASSESSMENT AND PLAN: 43-year-old male with history of subarachnoid hemorrhage with subsequent RN BARIATRIC shunt, tracheostomy placement, G-tube placement, hypertension, high cholesterol, depression, gastroesophageal reflux disease, who comes in from outside facility with signs of pneumonia, elevated troponins, slight lactic acidosis and renal insufficiency. # Apnea and altered mental status - again likely secondary to combination of patient's pneumonia and possible non-ST elevation myocardial infarction. - Again for his pneumonia, continue broad-spectrum antibiotics, follow-up culture results - Follow up TSH, A1c, lipid panel, continue low-dose IV fluids. -Continue Tylenol p.r.n. pain and fevers. -We will get speech eval # Elevated troponins - again signs of non-ST elevation myocardial infarction. - continue Lovenox 1 mg/kg daily per cardiology recommendations, continue to trend his troponins. -Continue high dose aspirin and high dose Lipitor, Morphine p.r.n., nitrogly cerin p.r.n. # Renal insufficiency-resolving now, creatinine is presently normal -Monitor, follow-up recommendations from renal consult. - Continue IV fluids. # History of hypertension. Again, blood pressure is presently stable. - Continue to monitor for now. He is on hydralazine p.r.n. # History of high cholesterol. - Continue Lipitor. Follow up lipid panel. # Tracheostomy placement. - Continue oxygen supplementation via trach via mechanical ventilation. - Consider pulmonary consult if worsens # Gastrointestinal prophylaxis. Pepcid. # Deep venous thrombosis prophylaxis- Lovenox. # History of gastroesophageal reflux disease- H2 kendall. # History of depression. Ativan p.r.n. Result Diagram: 11/04/18 0551 11/04/18 0551 Results 24hrs Laboratory Tests Test 11/03/18 17:07 11/03/18 21:04 11/03/18 22:52 11/03/18 23:29 Lactic Acid Level 0.9 1.0 Creatine Kinase 313 H 294 H Creatine Kinase 7.5 7.4 Index Creatinine Kinase MB 23.40 H 21.80 H (Mass) Troponin I 6.730 *H 5.590 *H Urine Random 113.69 Creatinine Urine Random Sodium 88 Urine Total Protein 27.0 H Test 11/04/18 05:51 White Blood Count 12.3 #H Red Blood Count 3.72 L Hemoglobin 11.5 L Hematocrit 35.4 L Mean Corpuscular 95.2 Volume Mean Corpuscular 30.9 Hemoglobin Mean Corpuscular 32.5 Hemoglobin Concent Red Cell 12.2 Distribution Width Platelet Count 152 Mean Platelet Volume 10.1 Immature 1.900 H Granulocytes % Neutrophils % 69.1 Lymphocytes % 10.6 L Monocytes % 15.5 H Eosinophils % 2.4 Basophils % 0.5 Nucleated Red Blood 0.0 Cells % Immature 0.230 H Granulocytes # Neutrophils # 8.5 H Lymphocytes # 1.3 Monocytes # 1.9 H Eosinophils # 0.3 Basophils # 0.1 Nucleated Red Blood 0.0 Cells # Sodium Level 144 Potassium Level 3.7 Chloride Level 110 Carbon Dioxide Level 27 Anion Gap 7 # Blood Urea Nitrogen 10 Creatinine 0.77 Est Glomerular > 60 Filtrat Rate mL/min Glucose Level 98 # Hemoglobin A1c 5.3 Lactic Acid Level 1.1 Calcium Level 8.1 L Phosphorus Level 4.3 Magnesium Level 1.7 Creatine Kinase 190 Creatine Kinase 5.4 Index Creatinine Kinase MB 10.30 H (Mass) Troponin I 3.130 *H Triglycerides Level 129 Cholesterol Level 61 L LDL Cholesterol, 16 Calculated HDL Cholesterol 19 L Cholesterol/HDL 3.2 Ratio Thyroid Stimulating 0.766 Hormone (TSH) Exam/Review of Systems Exam Vitals Vital Signs Date Temp Pulse Resp B/P (MAP) Pulse Ox O2 O2 Flow FiO2 Time Delivery Rate 11/04/18 85 28 96 40 11:05 11/04/18 98.4 167/90 Mechanical 10:06 (115) Ventilator Trach Collar Intake and Output 11/03/18 11/03/18 11/04/18 1515:00 23:00 07:00 IntakeIntake Total 410 ml 1363 ml OutputOutput Total 500 ml 800 ml BalanceBalance 410 ml -500 ml 563 ml Results Results 24hrs Laboratory Tests Test 11/03/18 17:07 11/03/18 21:04 11/03/18 22:52 11/03/18 23:29 Lactic Acid Level 0.9 1.0 Creatine Kinase 313 H 294 H Creatine Kinase 7.5 7.4 Index Creatinine Kinase MB 23.40 H 21.80 H (Mass) Troponin I 6.730 *H 5.590 *H Urine Random 113.69 Creatinine Urine Random Sodium 88 Urine Total Protein 27.0 H Test 11/04/18 05:51 White Blood Count 12.3 #H Red Blood Count 3.72 L Hemoglobin 11.5 L Hematocrit 35.4 L Mean Corpuscular 95.2 Volume Mean Corpuscular 30.9 Hemoglobin Mean Corpuscular 32.5 Hemoglobin Concent Red Cell 12.2 Distribution Width Platelet Count 152 Mean Platelet Volume 10.1 Immature 1.900 H Granulocytes % Neutrophils % 69.1 Lymphocytes % 10.6 L Monocytes % 15.5 H Eosinophils % 2.4 Basophils % 0.5 Nucleated Red Blood 0.0 Cells % Immature 0.230 H Granulocytes # Neutrophils # 8.5 H Lymphocytes # 1.3 Monocytes # 1.9 H Eosinophils # 0.3 Basophils # 0.1 Nucleated Red Blood 0.0 Cells # Sodium Level 144 Potassium Level 3.7 Chloride Level 110 Carbon Dioxide Level 27 Anion Gap 7 # Blood Urea Nitrogen 10 Creatinine 0.77 Est Glomerular > 60 Filtrat Rate mL/min Glucose Level 98 # Hemoglobin A1c 5.3 Lactic Acid Level 1.1 Calcium Level 8.1 L Phosphorus Level 4.3 Magnesium Level 1.7 Creatine Kinase 190 Creatine Kinase 5.4 Index Creatinine Kinase MB 10.30 H (Mass) Troponin I 3.130 *H Triglycerides Level 129 Cholesterol Level 61 L LDL Cholesterol, 16 Calculated HDL Cholesterol 19 L Cholesterol/HDL 3.2 Ratio Thyroid Stimulating 0.766 Hormone (TSH) Medications Medication Current Medications Naloxone HCl (Narcan) 1 mg Q2M PRN IV LETHARGY Last administered on 11/03/18at 07:19; Admin Dose 1 MG; Start 11/03/18 at 07:00 IV Flush (NS 3 ml) 3 ml PER PROTOCOL IV ; Start 11/03/18 at 12:00 Ondansetron HCl (Zofran Inj) 4 mg Q6H PRN IV NAUSEA/VOMITING; Start 11/03/18 at 12:00 Acetaminophen (Tylenol Tab) 650 mg Q6H PRN PO .PAIN 1-3 OR TEMP; Start 11/03/18 at 12:00 Acetaminophen/ Hydrocodone Bitart ([place] (5/325)) 1 tab Q6H PRN PO .MOD PAIN 4- 6; Start 11/03/18 at 12:00 Docusate Sodium (Colace) 100 mg Q12H PRN PO .CONSTIPATION; Start 11/03/18 at 12:00 Magnesium Hydroxide (Milk Of Mag) 30 ml DAILY PRN PO .CONSTIPATION; Start 11/03/18 at 12:00 Famotidine (Pepcid Iv) 20 mg BID IV Last administered on 11/04/18at 08:09; Admin Dose 20 MG; Start 11/04/18 at 09:00 Sodium Chloride 1,000 ml @ 75 mls/hr [id number] IV Last administered on 11/04/18at 02:13; Admin Dose 75 MLS/HR; Start 11/03/18 at 11:40 Lorazepam (Ativan) 0.5 mg Q6H PRN IV ANXIETY Last administered on 11/04/18at 07:18; Admin Dose 0.5 MG; Start 11/03/18 at 12:00 Albuterol/ Ipratropium (Duoneb) 3 ml Q4H RESP THERAPY PRN HHN SHORTNESS OF BREATH; Start 11/03/18 at 12:00 Piperacillin Sod/ Tazobactam Sod 100 ml @ 200 mls/hr Q6 IVPB Last administered on 11/04/18at 05:25; Admin Dose 200 MLS/HR; Start 11/03/18 at 13:00 Vancomycin HCl (Vanco Iv Per Pharmacy) VANCOMYCIN PER PHARMACY NOTE XX ; Start 11/03/18 at 12:00 Hydralazine HCl (Apresoline) 10 mg Q6H PRN IV ELEVATED BLOOD PRESSURE; Start 11/03/18 at 12:00 Nitroglycerin (Nitroglycerin (Sl Tab) 0.4 Mg) 1 tab Q5M PRN SL ANGINA; Start 11/03/18 at 12:00 Aspirin (Ecotrin) 325 mg DAILY PO Last administered on 11/04/18 08:10; Admin Dose 325 MG; Start 11/04/18 at 09:00 Ascorbic Acid (Vitamin C) 500 mg DAILY GTB Last administered on 11/04/18 08:10; Admin Dose 500 MG; Start 11/04/18 at 09:00 Atorvastatin Calcium (Lipitor) 80 mg QHS GTB Last administered on 11/03/18at 21:30; Admin Dose 80 MG; Start 11/03/18 at 21:00 Bisacodyl (Dulcolax Supp) 10 mg DAILY PRN [place] CONSTIPATION; Start 11/03/18 at 12:00 Chlorhexidine Gluconate (Peridex) 15 ml Q12H MM Last administered on 11/03/18at 23:46; Admin Dose 15 ML; Start 11/03/18 at 12:00 Clonidine (Catapres) 0.2 mg Q8H PRN GTB SBP ABOVE 160; Start 11/03/18 at 12:00 Valproate Sodium (Depakene Liquid Cup) 500 mg BID GTB Last administered on 11/04/18 08:09; Admin Dose 500 MG; Start 11/03/18 at 21:00 Zinc Sulfate (Zinc Sulfate) 220 mg DAILY GTB Last administered on 11/04/18 08: 10; Admin Dose 220 MG; Start 11/04/18 at 09:00 Lactobacillus Acidophilus/ Rhamnosus (Culturelle) 1 cap DAILY PO Last administered on 11/04/18 08:10; Admin Dose 1 CAP; Start 11/04/18 at 09:00 Multivitamins/ Minerals (Theragran-M) 1 tab DAILY PO Last administered on 11/04/18 08:09; Admin Dose 1 TAB; Start 11/04/18 at 09:00 Vancomycin/Sodium Chloride 250 ml @ 125 mls/hr Q12H IVPB Last administered on 11/04/18at 06:16; Admin Dose 125 MLS/HR; Start 11/03/18 at 18:00 Enoxaparin Sodium (Lovenox) 70 mg DAILY SC Last administered on 11/04/18at 08:25; Admin Dose 70 MG; Start 11/04/18 at 09:00 Metoprolol Tartrate (Lopressor) 25 mg BID PO Last administered on 11/04/18at 08:10; Admin Dose 25 MG; Start 11/03/18 at 21:00 Gabapentin (Neurontin) 600 mg BID GTB ; Start 11/04/18 at 12:00; Status UNV Risperidone (Risperdal) 2 mg DAILY GTB ; Start 11/04/18 at 12:00; Status UNV BRANDT RAMÍREZ November 04, 2018 12:03
[2018-11-04] MEDS ORDERED: LORAZEPAM 2 MG INJ IV ONE (12:30)
[2018-11-04] MEDS: CHLORHEXIDINE GLUCONATE 15 ML UD CUP MM SCH (12:45)
[2018-11-04] MEDS: GABAPENTIN 300 MG CAP GTB SCH ×2 (12:45→21:17)
[2018-11-04] MEDS ORDERED: RISPERIDONE 1 MG TAB GTB SCH (13:00)
[2018-11-04] MEDS: RISPERIDONE 2 MG TAB GTB SCH (13:45)
--- NOTE | 2018-11-04 14:35 | CONS ---
Assessment/Plan Assessment/Plan Hospital Course (Demo Recall) IMPRESSION: 1. Positive troponin with uptrending consistent with non-ST elevation myocardial infarction-Echo EF 50-55 11/03 2. Abnormal electrocardiogram with incomplete right bundle branch block. 3. Tachycardia, mild. 4. Chronic respiratory failure, status post tracheostomy. 5. Dysphagia, status post G-tube. 6. History of subarachnoid hemorrhage. 7. History of ventriculoperitoneal shunt. Recc: -Tele -Continue asa/sttain -Continue BB -Continue lovenox -Continue to trend cardiac enzymes which are downtrending Consultation Date/Type/Reason Admit Date/Time November 03, 2018 at 10:30 Initial Consult Date 11/04/18 Type of Consult Cardiology Reason for Consultation Nstemi Requesting Provider: BRANDT RAMÍREZ Date/Time of Note DATE: 11/04/18 TIME: 14:28 Exam/Review of Systems Vital Signs Vitals Vital Signs Date Temp Pulse Resp B/P (MAP) Pulse Ox O2 O2 Flow FiO2 Time Delivery Rate 11/04/18 98.3 79 19 120/76 100 Mechanical 14:05 (91) Ventilator Trach Collar 11/04/18 40 13:12 Intake and Output 11/03/18 11/03/18 11/04/18 1515:00 23:00 07:00 IntakeIntake Total 410 ml 1363 ml OutputOutput Total 500 ml 800 ml BalanceBalance 410 ml -500 ml 563 ml Exam Exam Review of Systems: CONSTITUTIONAL: No fevers, chills. PULMONARY: No sob CARDIOVASCULAR: No chest pain/palpitations GASTROINTESTINAL: No nausea/vomiting. GENITOURINARY: No hematuria/dysuria. MUSCULOSKELETAL: No myagias/arthalgias. PSYCHIATRIC: The patient denies depression. NEUROLOGIC: No weakness Constitutional: alert Psych: no complaints Head: normocephalic ENMT: mucosa pink and moist Neck: supple, jvd (9 cm water) Respiratory: diminished breath sounds Cardiovascular: regular rate and rhythm Gastrointestinal: soft, non-tender Musculoskeletal: muscle tone (norml) Extremities: edema (none) Neurological: other (No focal deficits) Labs Result Diagram: 11/04/18 0551 11/04/18 0551 Results 24hrs Laboratory Tests Test 11/03/18 17:07 11/03/18 21:04 11/03/18 22:52 11/03/18 23:29 Lactic Acid Level 0.9 1.0 Creatine Kinase 313 H 294 H Creatine Kinase 7.5 7.4 Index Creatinine Kinase MB 23.40 H 21.80 H (Mass) Troponin I 6.730 *H 5.590 *H Urine Random 113.69 Creatinine Urine Random Sodium 88 Urine Total Protein 27.0 H Test 11/04/18 05:51 White Blood Count 12.3 #H Red Blood Count 3.72 L Hemoglobin 11.5 L Hematocrit 35.4 L Mean Corpuscular 95.2 Volume Mean Corpuscular 30.9 Hemoglobin Mean Corpuscular 32.5 Hemoglobin Concent Red Cell 12.2 Distribution Width Platelet Count 152 Mean Platelet Volume 10.1 Immature 1.900 H Granulocytes % Neutrophils % 69.1 Lymphocytes % 10.6 L Monocytes % 15.5 H Eosinophils % 2.4 Basophils % 0.5 Nucleated Red Blood 0.0 Cells % Immature 0.230 H Granulocytes # Neutrophils # 8.5 H Lymphocytes # 1.3 Monocytes # 1.9 H Eosinophils # 0.3 Basophils # 0.1 Nucleated Red Blood 0.0 Cells # Sodium Level 144 Potassium Level 3.7 Chloride Level 110 Carbon Dioxide Level 27 Anion Gap 7 # Blood Urea Nitrogen 10 Creatinine 0.77 Est Glomerular > 60 Filtrat Rate mL/min Glucose Level 98 # Hemoglobin A1c 5.3 Lactic Acid Level 1.1 Calcium Level 8.1 L Phosphorus Level 4.3 Magnesium Level 1.7 Creatine Kinase 190 Creatine Kinase 5.4 Index Creatinine Kinase MB 10.30 H (Mass) Troponin I 3.130 *H Triglycerides Level 129 Cholesterol Level 61 L LDL Cholesterol, 16 Calculated HDL Cholesterol 19 L Cholesterol/HDL 3.2 Ratio Thyroid Stimulating 0.766 Hormone (TSH) Medications Medications Current Medications Naloxone HCl (Narcan) 1 mg Q2M PRN IV LETHARGY Last administered on 11/03/18at 07:19; Admin Dose 1 MG; Start 11/03/18 at 07:00 IV Flush (NS 3 ml) 3 ml PER PROTOCOL IV ; Start 11/03/18 at 12:00 Ondansetron HCl (Zofran Inj) 4 mg Q6H PRN IV NAUSEA/VOMITING; Start 11/03/18 at 12:00 Acetaminophen (Tylenol Tab) 650 mg Q6H PRN PO .PAIN 1-3 OR TEMP; Start 11/03/18 at 12:00 Acetaminophen/ Hydrocodone Bitart ([place] (5/325)) 1 tab Q6H PRN PO .MOD PAIN 4- 6; Start 11/03/18 at 12:00 Docusate Sodium (Colace) 100 mg Q12H PRN PO .CONSTIPATION; Start 11/03/18 at 12:00 Magnesium Hydroxide (Milk Of Mag) 30 ml DAILY PRN PO .CONSTIPATION; Start 11/03/18 at 12:00 Famotidine (Pepcid Iv) 20 mg BID IV Last administered on 11/04/18at 08:09; Admin Dose 20 MG; Start 11/04/18 at 09:00 Sodium Chloride 1,000 ml @ 75 mls/hr [id number] IV Last administered on 11/04/18at 02:13; Admin Dose 75 MLS/HR; Start 11/03/18 at 11:40 Lorazepam (Ativan) 0.5 mg Q6H PRN IV ANXIETY Last administered on 11/04/18at 07:18; Admin Dose 0.5 MG; Start 11/03/18 at 12:00 Albuterol/ Ipratropium (Duoneb) 3 ml Q4H RESP THERAPY PRN HHN SHORTNESS OF BREATH; Start 11/03/18 at 12:00 Piperacillin Sod/ Tazobactam Sod 100 ml @ 200 mls/hr Q6 IVPB Last administered on 11/04/18at 12:45; Admin Dose 200 MLS/HR; Start 11/03/18 at 13:00 Vancomycin HCl (Vanco Iv Per Pharmacy) VANCOMYCIN PER PHARMACY NOTE XX ; Start 11/03/18 at 12:00 Hydralazine HCl (Apresoline) 10 mg Q6H PRN IV ELEVATED BLOOD PRESSURE; Start 11/03/18 at 12:00 Nitroglycerin (Nitroglycerin (Sl Tab) 0.4 Mg) 1 tab Q5M PRN SL ANGINA; Start 11/03/18 at 12:00 Aspirin (Ecotrin) 325 mg DAILY PO Last administered on 11/04/18at 08:10; Admin Dose 325 MG; Start 11/04/18 at 09:00 Ascorbic Acid (Vitamin C) 500 mg DAILY GTB Last administered on 11/04/18at 08:10; Admin Dose 500 MG; Start 11/04/18 at 09:00 Atorvastatin Calcium (Lipitor) 80 mg QHS GTB Last administered on 11/03/18 21:30; Admin Dose 80 MG; Start 11/03/18 at 21:00 Bisacodyl (Dulcolax Supp) 10 mg DAILY PRN [place] CONSTIPATION; Start 11/03/18 at 12:00 Chlorhexidine Gluconate (Peridex) 15 ml Q12H MM Last administered on 11/04/18 12:45; Admin Dose 15 ML; Start 11/03/18 at 12:00 Clonidine (Catapres) 0.2 mg Q8H PRN GTB SBP ABOVE 160; Start 11/03/18 at 12:00 Valproate Sodium (Depakene Liquid Cup) 500 mg BID GTB Last administered on 11/04/18 08:09; Admin Dose 500 MG; Start 11/03/18 at 21:00 Zinc Sulfate (Zinc Sulfate) 220 mg DAILY GTB Last administered on 11/04/18 08:10; Admin Dose 220 MG; Start 11/04/18 at 09:00 Lactobacillus Acidophilus/ Rhamnosus (Culturelle) 1 cap DAILY PO Last administered on 11/04/18 08:10; Admin Dose 1 CAP; Start 11/04/18 at 09:00 Multivitamins/ Minerals (Theragran-M) 1 tab DAILY PO Last administered on 11/04/18 08:09; Admin Dose 1 TAB; Start 11/04/18 at 09:00 Vancomycin/Sodium Chloride 250 ml @ 125 mls/hr Q12H IVPB Last administered on 11/04/18 06:16; Admin Dose 125 MLS/HR; Start 11/03/18 at 18:00 Enoxaparin Sodium (Lovenox) 70 mg DAILY SC Last administered on 11/04/18 08:25; Admin Dose 70 MG; Start 11/04/18 at 09:00 Metoprolol Tartrate (Lopressor) 25 mg BID PO Last administered on 11/04/18 08:10; Admin Dose 25 MG; Start 11/03/18 at 21:00 Gabapentin (Neurontin) 600 mg BID GTB Last administered on 11/04/18 12:45; Admin Dose 600 MG; Start 11/04/18 at 12:00 Risperidone (Risperdal) 2 mg DAILY GTB Last administered on 5/24/19at 13:45; Admin Dose 2 MG; Start 11/04/18 at 14:00 NORMAN KESSLER November 04, 2018 14:35
--- NOTE | 2018-11-04 18:54 | RADRPT ---
Vent Rate: 90 bpm RR Interval: 668 msec MD Interval: 144 msec QRS Duration: 88 msec QT Interval: 446 msec QTC Interval: 546 msec P-R-T Glide: 25 - -11 - 6 degrees Sinus rhythm...normal P axis, V-rate 50- 99 Anterior t wave inversion, consider anterior iscnhemia Prolonged QT interval...QTc >500mS Electronically Signed By: Silviano Russell
[2018-11-04] MEDS: ATORVASTATIN 40 MG TAB GTB SCH (21:17)
[2018-11-05] VITALS (29 sets, daily range): BP systolic 100–127; BP diastolic 59–83; PULSE 62–96; RESP 14–25
[2018-11-05] MEDS: PIPER-TAZO 3.375 GM IV (PMX) 100 ML IVPB SCH ×2 (00:35→05:24)
[2018-11-05] MEDS: CHLORHEXIDINE GLUCONATE 15 ML UD CUP MM SCH ×3 (00:35→23:52)
[2018-11-05] MEDS: LORAZEPAM 2 MG INJ IV PRN ×3 (03:26→22:35)
[2018-11-05] MEDS ORDERED: HALOPERIDOL 5 MG INJ IM ONE (04:00)
[2018-11-05] MEDS: VALPROIC ACID LIQUID CUP 250 MG/5 ML CUP GTB SCH ×2 (08:59→20:51)
[2018-11-05] MEDS: VANCOMYCIN 750 MG (PMX) 250 ML IVPB SCH ×2 (08:59→17:49)
[2018-11-05] MEDS: METOPROLOL 25 MG TAB PO SCH ×2 (09:00→20:52)
[2018-11-05] MEDS: ASCORBIC ACID 500 MG TAB GTB SCH (09:00)
[2018-11-05] MEDS: GABAPENTIN 300 MG CAP GTB SCH ×2 (09:00→20:51)
[2018-11-05] MEDS: RISPERIDONE 2 MG TAB GTB SCH (09:00)
[2018-11-05] MEDS: MULTIVITAMINS/MINERALS TAB PO SCH (09:00)
[2018-11-05] MEDS: FAMOTIDINE 20 MG INJ IV SCH ×2 (09:00→20:47)
[2018-11-05] MEDS: ZINC SULFATE 220 MG CAP GTB SCH (09:06)
[2018-11-05] MEDS: ASPIRIN (EC) 325 MG TAB PO SCH (09:06)
[2018-11-05] MEDS: LACTOBACILLUS RHAMNOSUS CAP PO SCH (09:06)
[2018-11-05] MEDS: ENOXAPARIN 80 MG/0.8 ML SYG SC SCH (09:07)
--- NOTE | 2018-11-05 09:28 | PN ---
DATE: 11/05/2018 SUBJECTIVE: The patient is stable. No events overnight. OBJECTIVE: VITAL SIGNS: Blood pressure is 127/69, respirations 14, pulse 83, temperature 99.6. HEENT: Head is normocephalic. NECK: Supple. HEART: Regular rate. LUNGS: Show diminished breath sounds at the base. ABDOMEN: Soft, nontender to palpation without rebound or guarding. EXTREMITIES: Negative for clubbing, cyanosis, no edema. DERMATOLOGIC: No rashes. MUSCULOSKELETAL: No joint effusion. NEUROLOGIC: No change in exam. MEDICATIONS: Have been reviewed. LABORATORY DATA: Has been reviewed. ASSESSMENT AND PLAN: 1. Nonoliguric acute injury with unknown baseline creatinine. Etiology of acute kidney injury is se condary to hemodynamics, sepsis. Renal function is improved. Continue current treatment plan, suppo rtive care, renally dose all meds. 2. Hypokalemia. Will replete with potassium chloride. 3. Anemia. Monitor hemoglobin and hematocrit levels. 4. Mineral bone disorder. Monitor calcium and phosphorus levels. 5. Ventilatory-dependent respiratory failure. Vent settings have been reviewed. Continue to monito r. 6. Acute encephalopathy. Etiology is toxic metabolic. Continue to monitor. 7. Hypertension. Continue current blood pressure regimen. 8. Dyslipidemia. Continue statin therapy. 9. Sepsis with bacteremia. Continue current antibiotic regimen. 10. Elevated troponin, possible non-ST elevation myocardial infarction. Continue medical management . Follow up with cardiology. 11. Arrhythmia. Continue to monitor. 12. History of AV shunt. Dictated By: RENEE DUONG/PRISCILLA Conf#: [id number] DID#: [id number] CC: BRANDT RAMÍREZ;*EndCC*
[2018-11-05] MEDS: POTASSIUM CHLORIDE 100 ML IVPB SCH ×2 (11:24→13:29)
[2018-11-05] MEDS: HALOPERIDOL 5 MG INJ IV PRN ×2 (11:24→20:47)
--- NOTE | 2018-11-05 12:26 | PN ---
Date/Time of Note Date/Time of Note DATE: 11/05/18 TIME: 12:10 Assessment/Plan VTE Prophylaxis Risk score (from Ns)>0 risk: 7 SCD applied (from [facility] [place]): No SCD contraindicated: other Pharmacological prophylaxis: LMWH Lines/Catheters IV Catheter Type (from [place]): Peripheral IV Urinary Cath still in place: Yes Reason Cath still needed: urinary retention Assessment/Plan Hospital Course S: Patient still with occasional agitation, relieved with Haldol. Attempted to be seen by speech therapy and renal teams today. O: VS - see below PHYSICAL EXAMINATION: GENERAL: lying in bed, opens eyes HEENT: Pupils are equal, round, reactive to light. Extraocular muscles are intact. NECK: Supple. Tracheostomy site looks clean, dry and intact. RESPIRATORY: Slightly distant breath sounds bilaterally. CARDIOVASCULAR: S1, S2 heard. No murmurs, rubs or gallops. ABDOMEN: G-tube in place. Normal bowel sounds. No rebound or guarding. MUSCULOSKELETAL: No lower extremity edema bilaterally. NEUROLOGIC: Unable to fully assess. ASSESSMENT AND PLAN: 43-year-old male with history of subarachnoid hemorrhage with subsequent SANITATION LEAD shunt, tracheostomy placement, G-tube placement, hypertension, high cholesterol, depression, gastroesophageal reflux disease, who comes in from outside facility with signs of pneumonia, elevated troponins, slight lactic acidosis and renal insufficiency. # Apnea and altered mental status - again likely secondary to combination of patient's pneumonia and possible non-ST elevation myocardial infarction. - Again for his pneumonia, continue broad-spectrum antibiotics, follow-up culture results - Follow up TSH, A1c, lipid panel, continue low-dose IV fluids. -Continue Tylenol p.r.n. pain and fevers. -We will get speech eval # Elevated troponins - again signs of non-ST elevation myocardial infarction. - continue Lovenox 1 mg/kg daily per cardiology recommendations, continue to trend his troponins. -Continue high dose aspirin and high dose Lipitor, Morphine p.r.n., nitroglycerin p.r.n. # Renal insufficiency-resolving now, creatinine is presently normal -Monitor, follow-up recommendations from renal consult. - Continue IV fluids. # History of hypertension. Again, blood pressure is presently stable. - Continue to monitor for now. He is on hydralazine p.r.n. # History of high cholesterol. - Continue Lipitor. Follow up lipid panel. # Tracheostomy placement. - Continue oxygen supplementation via trach via mechanical ventilation. - Consider pulmonary consult if worsens # Gastrointestinal prophylaxis. Pepcid. # Deep venous thrombosis prophylaxis- Lovenox. # History of gastroesophageal reflux disease- H2 kendall. # History of depression. Ativan p.r.n. Dispo: Likely back to senior care facility in the next 24 hours if agitation improves and leukocytosis improves. Result Diagram: 11/05/1852011/05/18520 Results 24hrs Laboratory Tests Test 11/05/18 05:21 White Blood Count 11.3 H Red Blood Count 3.50 L Hemoglobin 11.1 L Hematocrit 32.1 L Mean Corpuscular Volume 91.7 Mean Corpuscular Hemoglobin 31.7 Mean Corpuscular Hemoglobin Concent 34.6 Red Cell Distribution Width 12.0 Platelet Count 171 Mean Platelet Volume 9.8 Immature Granulocytes % 1.700 H Neutrophils % Segmented Neutrophils % (Manual) 69 Band Neutrophils % (Manual) 8 H Lymphocytes % Lymphocytes % (Manual) 6 L Reactive Lymphocytes % (Manual) 2 H Monocytes % Monocytes % (Manual) 9 Eosinophils % Eosinophils % (Manual) 4 Basophils % Myelocytes % (Manual) 2 H Nucleated Red Blood Cells % 0.0 Immature Granulocytes # 0.190 H Neutrophils # Neutrophils # (Manual) 7.9 H Band Neutrophils # 0.9 H Lymphocytes (Manual) 0.6 L Lymphocytes # Reactive Lymphocytes # 0.2 H Monocytes # Monocytes # (Manual) 1.0 H Eosinophils # Basophils # Myelocytes # 0.2 H Nucleated Red Blood Cells # Platelet Estimate NORMAL Poikilocytosis 1+ Target Cells 1+ Sodium Level 141 Potassium Level 3.1 L Chloride Level 104 Carbon Dioxide Level 31 Anion Gap 6 Blood Urea Nitrogen 5 L Creatinine 0.55 L Est Glomerular Filtrat Rate mL/min > 60 Glucose Level 82 Calcium Level 8.0 L Vancomycin Level Trough 5.0 L Exam/Review of Systems Exam Vitals Vital Signs Date Temp Pulse Resp B/P (MAP) Pulse Ox O2 O2 Flow FiO2 Time Delivery Rate 11/05/18 97.3 63 24 105/62 99 10:37 (76) 11/05/18 40 08:30 11/05/18 Mechanical 02:00 Ventilator Intake and Output 11/04/18 11/04/18 11/05/18 1515:00 23:00 07:00 IntakeIntake Total 1175 ml 30 ml OutputOutput Total 1100 ml 1700 ml BalanceBalance 75 ml -1670 ml Results Results 24hrs Laboratory Tests Test 11/05/18 05:21 White Blood Count 11.3 H Red Blood Count 3.50 L Hemoglobin 11.1 L Hematocrit 32.1 L Mean Corpuscular Volume 91.7 Mean Corpuscular Hemoglobin 31.7 Mean Corpuscular Hemoglobin Concent 34.6 Red Cell Distribution Width 12.0 Platelet Count 171 Mean Platelet Volume 9.8 Immature Granulocytes % 1.700 H Neutrophils % Segmented Neutrophils % (Manual) 69 Band Neutrophils % (Manual) 8 H Lymphocytes % Lymphocytes % (Manual) 6 L Reactive Lymphocytes % (Manual) 2 H Monocytes % Monocytes % (Manual) 9 Eosinophils % Eosinophils % (Manual) 4 Basophils % Myelocytes % (Manual) 2 H Nucleated Red Blood Cells % 0.0 Immature Granulocytes # 0.190 H Neutrophils # Neutrophils # (Manual) 7.9 H Band Neutrophils # 0.9 H Lymphocytes (Manual) 0.6 L Lymphocytes # Reactive Lymphocytes # 0.2 H Monocytes # Monocytes # (Manual) 1.0 H Eosinophils # Basophils # Myelocytes # 0.2 H Nucleated Red Blood Cells # Platelet Estimate NORMAL Poikilocytosis 1+ Target Cells 1+ Sodium Level 141 Potassium Level 3.1 L Chloride Level 104 Carbon Dioxide Level 31 Anion Gap 6 Blood Urea Nitrogen 5 L Creatinine 0.55 L Est Glomerular Filtrat Rate mL/min > 60 Glucose Level 82 Calcium Level 8.0 L Vancomycin Level Trough 5.0 L Medications Medication Current Medications Naloxone HCl (Narcan) 1 mg Q2M PRN IV LETHARGY Last administered on 11/03/18at 07:19; Admin Dose 1 MG; Start 11/03/18 at 07:00 IV Flush (NS 3 ml) 3 ml PER PROTOCOL IV ; Start 11/03/18 at 12:00 Ondansetron HCl (Zofran Inj) 4 mg Q6H PRN IV NAUSEA/VOMITING; Start 11/03/18 at 12:00 Acetaminophen (Tylenol Tab) 650 mg Q6H PRN PO .PAIN 1-3 OR TEMP; Start 11/03/18 at 12:00 Acetaminophen/ Hydrocodone Bitart ([place] (5/325)) 1 tab Q6H PRN PO .MOD PAIN 4- 6; Start 11/03/18 at 12:00 Docusate Sodium (Colace) 100 mg Q12H PRN PO .CONSTIPATION; Start 11/03/18 at 12:00 Magnesium Hydroxide (Milk Of Mag) 30 ml DAILY PRN PO .CONSTIPATION; Start 11/03/18 at 12:00 Famotidine (Pepcid Iv) 20 mg BID IV Last administered on 11/05/18 09:00; Admin Dose 20 MG; Start 11/04/18 at 09:00 Sodium Chloride 1,000 ml @ 75 mls/hr [id number] IV Last administered on 11/04/18at 23:30; Admin Dose 75 MLS/HR; Start 11/03/18 at 11:40 Lorazepam (Ativan) 0.5 mg Q6H PRN IV ANXIETY Last administered on 11/05/18 03:26; Admin Dose 0.5 MG; Start 11/03/18 at 12:00 Albuterol/ Ipratropium (Duoneb) 3 ml Q4H RESP THERAPY PRN HHN SHORTNESS OF BREATH; Start 11/03/18 at 12:00 Vancomycin HCl (Vanco Iv Per Pharmacy) VANCOMYCIN PER PHARMACY NOTE XX ; Start 11/03/18 at 12:00 Hydralazine HCl (Apresoline) 10 mg Q6H PRN IV ELEVATED BLOOD PRESSURE; Start 11/03/18 at 12:00 Nitroglycerin (Nitroglycerin (Sl Tab) 0.4 Mg) 1 tab Q5M PRN SL ANGINA; Start 11/03/18 at 12:00 Aspirin (Ecotrin) 325 mg DAILY PO Last administered on 11/05/18at 09:06; Admin Dose 325 MG; Start 11/04/18 at 09:00 Ascorbic Acid (Vitamin C) 500 mg DAILY GTB Last administered on 11/05/18at 09:00; Admin Dose 500 MG; Start 11/04/18 at 09:00 Atorvastatin Calcium (Lipitor) 80 mg QHS GTB Last administered on 11/04/18at 21:17; Admin Dose 80 MG; Start 11/03/18 at 21:00 Bisacodyl (Dulcolax Supp) 10 mg DAILY PRN [place] CONSTIPATION; Start 11/03/18 at 12:00 Chlorhexidine Gluconate (Peridex) 15 ml Q12H MM Last administered on 11/05/18at 00:35; Admin Dose 15 ML; Start 11/03/18 at 12:00 Clonidine (Catapres) 0.2 mg Q8H PRN GTB SBP ABOVE 160; Start 11/03/18 at 12:00 Valproate Sodium (Depakene Liquid Cup) 500 mg BID GTB Last administered on 11/05/18 08:59; Admin Dose 500 MG; Start 11/03/18 at 21:00 Zinc Sulfate (Zinc Sulfate) 220 mg DAILY GTB Last administered on 11/05/18 09:06; Admin Dose 220 MG; Start 11/04/18 at 09:00 Lactobacillus Acidophilus/ Rhamnosus (Culturelle) 1 cap DAILY PO Last administered on 11/05/18 09:06; Admin Dose 1 CAP; Start 11/04/18 at 09:00 Multivitamins/ Minerals (Theragran-M) 1 tab DAILY PO Last administered on 11/05/18 09:00; Admin Dose 1 TAB; Start 11/04/18 at 09:00 Enoxaparin Sodium (Lovenox) 70 mg DAILY SC Last administered on 11/05/18 09:07; Admin Dose 70 MG; Start 11/04/18 at 09:00 Metoprolol Tartrate (Lopressor) 25 mg BID PO Last administered on 11/05/18 09:00; Admin Dose 25 MG; Start 11/03/18 at 21:00 Gabapentin (Neurontin) 600 mg BID GTB Last administered on 11/05/18 09:00; Admin Dose 600 MG; Start 11/04/18 at 12:00 Risperidone (Risperdal) 2 mg DAILY GTB Last administered on 11/05/18 09:00; Admin Dose 2 MG; Start 11/04/18 at 14:00 Haloperidol (Haldol) 0.5 mg Q8H PRN IV Agitation Last administered on 11/05/18 11:24; Admin Dose 0.5 MG; Start 11/05/18 at 08:30 Potassium Chloride 100 ml @ 50 mls/hr Q2H IVPB Last administered on 11/05/18 11:24; Admin Dose 50 MLS/HR; Start 11/05/18 at 08:30; Stop 11/05/18 at 12:29 Vancomycin/Sodium Chloride 250 ml @ 125 mls/hr Q8H IVPB ; Start 11/05/18 at 17:00 Mupirocin (Bactroban) 1 applic BID TOP ; Start 11/05/18 at 12:00 BRANDT RAMÍREZ November 05, 2018 12:26
[2018-11-05] MEDS: MUPIROCIN 2% 22 GM OINT TOP SCH ×2 (12:52→20:52)
--- NOTE | 2018-11-05 14:28 | CONS ---
Assessment/Plan Assessment/Plan Hospital Course (Demo Recall) IMPRESSION: 1. Positive troponin with uptrending consistent with non-ST elevation myocardial infarction-Echo EF 50-55 11/03 2. Abnormal electrocardiogram with incomplete right bundle branch block. 3. Tachycardia, mild. 4. Chronic respiratory failure, status post tracheostomy. 5. Dysphagia, status post G-tube. 6. History of subarachnoid hemorrhage. 7. History of ventriculoperitoneal shunt. Recc: -Tele -Continue asa/statin -Continue BB -Continue lovenox -Continue to trend cardiac enzymes which are downtrending Consultation Date/Type/Reason Admit Date/Time November 03, 2018 at 10:30 Initial Consult Date 11/04/18 Type of Consult Cardiology Reason for Consultation Nstemi Requesting Provider: BRANDT RAMÍREZ Date/Time of Note DATE: 11/05/18 TIME: 14:26 Exam/Review of Systems Vital Signs Vitals Vital Signs Date Temp Pulse Resp B/P (MAP) Pulse Ox O2 O2 Flow FiO2 Time Delivery Rate 11/05/18 97.9 62 24 104/60 95 12:26 (75) 11/05/18 40 08:30 11/05/18 Mechanical 02:00 Ventilator Intake and Output 11/04/18 11/04/18 11/05/18 1515:00 23:00 07:00 IntakeIntake Total 1175 ml 30 ml OutputOutput Total 1100 ml 1700 ml BalanceBalance 75 ml -1670 ml Exam Exam Review of Systems: CONSTITUTIONAL: No fevers, chills. PULMONARY: No sob CARDIOVASCULAR: No chest pain/palpitations GASTROINTESTINAL: No nausea/vomiting. GENITOURINARY: No hematuria/dysuria. MUSCULOSKELETAL: No myagias/arthalgias. PSYCHIATRIC: The patient denies depression. NEUROLOGIC: No weakness Constitutional: alert Psych: no complaints Head: normocephalic ENMT: mucosa pink and moist Neck: supple, jvd (9 cm water), other (trached) Respiratory: diminished breath sounds Cardiovascular: regular rate and rhythm Gastrointestinal: soft, non-tender Musculoskeletal: muscle tone (normal) Extremities: edema (none) Neurological: other (No focal deficits) Labs Result Diagram: 11/05/18 0511/05/18 0521 Results 24hrs Laboratory Tests Test 11/05/18 05:21 White Blood Count 11.3 H Red Blood Count 3.50 L Hemoglobin 11.1 L Hematocrit 32.1 L Mean Corpuscular Volume 91.7 Mean Corpuscular Hemoglobin 31.7 Mean Corpuscular Hemoglobin Concent 34.6 Red Cell Distribution Width 12.0 Platelet Count 171 Mean Platelet Volume 9.8 Immature Granulocytes % 1.700 H Neutrophils % Segmented Neutrophils % (Manual) 69 Band Neutrophils % (Manual) 8 H Lymphocytes % Lymphocytes % (Manual) 6 L Reactive Lymphocytes % (Manual) 2 H Monocytes % Monocytes % (Manual) 9 Eosinophils % Eosinophils % (Manual) 4 Basophils % Myelocytes % (Manual) 2 H Nucleated Red Blood Cells % 0.0 Immature Granulocytes # 0.190 H Neutrophils # Neutrophils # (Manual) 7.9 H Band Neutrophils # 0.9 H Lymphocytes (Manual) 0.6 L Lymphocytes # Reactive Lymphocytes # 0.2 H Monocytes # Monocytes # (Manual) 1.0 H Eosinophils # Basophils # Myelocytes # 0.2 H Nucleated Red Blood Cells # Platelet Estimate NORMAL Poikilocytosis 1+ Target Cells 1+ Sodium Level 141 Potassium Level 3.1 L Chloride Level 104 Carbon Dioxide Level 31 Anion Gap 6 Blood Urea Nitrogen 5 L Creatinine 0.55 L Est Glomerular Filtrat Rate mL/min > 60 Glucose Level 82 Calcium Level 8.0 L Vancomycin Level Trough 5.0 L Medications Medications Current Medications Naloxone HCl (Narcan) 1 mg Q2M PRN IV LETHARGY Last administered on 11/03/18at 07:19; Admin Dose 1 MG; Start 11/03/18 at 07:00 IV Flush (NS 3 ml) 3 ml PER PROTOCOL IV ; Start 11/03/18 at 12:00 Ondansetron HCl (Zofran Inj) 4 mg Q6H PRN IV NAUSEA/VOMITING; Start 11/03/18 at 12:00 Acetaminophen (Tylenol Tab) 650 mg Q6H PRN PO .PAIN 1-3 OR TEMP; Start 11/03/18 at 12:00 Acetaminophen/ Hydrocodone Bitart ([place] (5/325)) 1 tab Q6H PRN PO .MOD PAIN 4- 6; Start 11/03/18 at 12:00 Docusate Sodium (Colace) 100 mg Q12H PRN PO .CONSTIPATION; Start 11/03/18 at 12:00 Magnesium Hydroxide (Milk Of Mag) 30 ml DAILY PRN PO .CONSTIPATION; Start 11/03/18 at 12:00 Famotidine (Pepcid Iv) 20 mg BID IV Last administered on 11/05/18at 09:00; Admin Dose 20 MG; Start 11/04/18 at 09:00 Sodium Chloride 1,000 ml @ 75 mls/hr [id number] IV Last administered on 11/04/18at 23:30; Admin Dose 75 MLS/HR; Start 11/03/18 at 11:40 Lorazepam (Ativan) 0.5 mg Q6H PRN IV ANXIETY Last administered on 11/05/18at 13:42; Admin Dose 0.5 MG; Start 11/03/18 at 12:00 Albuterol/ Ipratropium (Duoneb) 3 ml Q4H RESP THERAPY PRN HHN SHORTNESS OF BREATH; Start 11/03/18 at 12:00 Vancomycin HCl (Vanco Iv Per Pharmacy) VANCOMYCIN PER PHARMACY NOTE XX ; Start 11/03/18 at 12:00 Hydralazine HCl (Apresoline) 10 mg Q6H PRN IV ELEVATED BLOOD PRESSURE; Start 11/03/18 at 12:00 Nitroglycerin (Nitroglycerin (Sl Tab) 0.4 Mg) 1 tab Q5M PRN SL ANGINA; Start 11/03/18 at 12:00 Aspirin (Ecotrin) 325 mg DAILY PO Last administered on 11/05/18at 09:06; Admin Dose 325 MG; Start 11/04/18 at 09:00 Ascorbic Acid (Vitamin C) 500 mg DAILY GTB Last administered on 11/05/18at 09:00; Admin Dose 500 MG; Start 11/04/18 at 09:00 Atorvastatin Calcium (Lipitor) 80 mg QHS GTB Last administered on 11/04/18at 21:17; Admin Dose 80 MG; Start 11/03/18 at 21:00 Bisacodyl (Dulcolax Supp) 10 mg DAILY PRN [place] CONSTIPATION; Start 11/03/18 at 12:00 Chlorhexidine Gluconate (Peridex) 15 ml Q12H MM Last administered on 11/05/18at 12:52; Admin Dose 15 ML; Start 11/03/18 at 12:00 Clonidine (Catapres) 0.2 mg Q8H PRN GTB SBP ABOVE 160; Start 11/03/18 at 12:00 Valproate Sodium (Depakene Liquid Cup) 500 mg BID GTB Last administered on 11/05/18 08:59; Admin Dose 500 MG; Start 11/03/18 at 21:00 Zinc Sulfate (Zinc Sulfate) 220 mg DAILY GTB Last administered on 11/05/18 09:06; Admin Dose 220 MG; Start 11/04/18 at 09:00 Lactobacillus Acidophilus/ Rhamnosus (Culturelle) 1 cap DAILY PO Last administered on 11/05/18 09:06; Admin Dose 1 CAP; Start 11/04/18 at 09:00 Multivitamins/ Minerals (Theragran-M) 1 tab DAILY PO Last administered on 11/05/18 09:00; Admin Dose 1 TAB; Start 11/04/18 at 09:00 Enoxaparin Sodium (Lovenox) 70 mg DAILY SC Last administered on 11/05/18 09:07; Admin Dose 70 MG; Start 11/04/18 at 09:00 Metoprolol Tartrate (Lopressor) 25 mg BID PO Last administered on 11/05/18 09:00; Admin Dose 25 MG; Start 11/03/18 at 21:00 Gabapentin (Neurontin) 600 mg BID GTB Last administered on 11/05/18 09:00; Admin Dose 600 MG; Start 11/04/18 at 12:00 Risperidone (Risperdal) 2 mg DAILY GTB Last administered on 11/05/18 09:00; Admin Dose 2 MG; Start 11/04/18 at 14:00 Haloperidol (Haldol) 0.5 mg Q8H PRN IV Agitation Last administered on 11/05/18 11:24; Admin Dose 0.5 MG; Start 11/05/18 at 08:30 Vancomycin/Sodium Chloride 250 ml @ 125 mls/hr Q8H IVPB ; Start 11/05/18 at 17:00 Mupirocin (Bactroban) 1 applic BID TOP Last administered on 11/05/18 12:52; Admin Dose 1 APPLIC; Start 11/05/18 at 12:00 NORMAN KESSLER November 05, 2018 14:28
[2018-11-05] MEDS ORDERED: LORAZEPAM 2 MG INJ IV ONE ×2 (16:30→18:00)
[2018-11-05] MEDS: SOD CHLORIDE 0.45% 1,000 ML IV SCH (17:00)
[2018-11-05] MEDS: ATORVASTATIN 40 MG TAB GTB SCH (20:51)
[2018-11-05] MEDS: ALBUTEROL/IPRATROPIUM (NEB) 3 ML AMP HHN PRN (22:12)
[2018-11-06] VITALS (31 sets, daily range): BP systolic 99–168; BP diastolic 62–99; PULSE 54–98; RESP 14–28
[2018-11-06] MEDS: VANCOMYCIN 750 MG (PMX) 250 ML IVPB SCH ×3 (00:51→17:53)
[2018-11-06] MEDS: LORAZEPAM 2 MG INJ IV PRN (04:21)
[2018-11-06] MEDS: ALBUTEROL/IPRATROPIUM (NEB) 3 ML AMP HHN PRN (05:07)
[2018-11-06] MEDS: SOD CHLORIDE 0.45% 1,000 ML IV SCH (06:20)
[2018-11-06] MEDS: HALOPERIDOL 5 MG INJ IV PRN (07:26)
[2018-11-06] MEDS ORDERED: HALOPERIDOL 5 MG INJ IV ONE (08:30)
[2018-11-06] MEDS ORDERED: HALOPERIDOL 5 MG INJ IV PRN (08:30)
[2018-11-06] MEDS: VALPROIC ACID LIQUID CUP 250 MG/5 ML CUP GTB SCH ×2 (08:46→20:28)
[2018-11-06] MEDS: ZINC SULFATE 220 MG CAP GTB SCH (08:47)
[2018-11-06] MEDS: LACTOBACILLUS RHAMNOSUS CAP PO SCH (08:48)
[2018-11-06] MEDS: RISPERIDONE 2 MG TAB GTB SCH (08:48)
[2018-11-06] MEDS: ASPIRIN (EC) 325 MG TAB PO SCH (08:48)
[2018-11-06] MEDS: ASCORBIC ACID 500 MG TAB GTB SCH (08:50)
[2018-11-06] MEDS: MULTIVITAMINS/MINERALS TAB PO SCH (08:50)
[2018-11-06] MEDS: GABAPENTIN 300 MG CAP GTB SCH ×2 (08:50→20:29)
[2018-11-06] MEDS: FAMOTIDINE 20 MG INJ IV SCH ×2 (08:51→20:29)
[2018-11-06] MEDS: METOPROLOL 25 MG TAB PO SCH ×2 (08:51→20:28)
[2018-11-06] MEDS ORDERED: POTASSIUM CHLORIDE 20 MEQ POWDER FOR ORAL SOLN GTB ONE (09:00)
[2018-11-06] MEDS: ENOXAPARIN 80 MG/0.8 ML SYG SC SCH (09:18)
[2018-11-06] MEDS: MUPIROCIN 2% 22 GM OINT TOP SCH ×2 (09:19→20:29)
--- NOTE | 2018-11-06 10:22 | PN ---
Date/Time of Note Date/Time of Note DATE: 11/06/18 TIME: 10:15 Assessment/Plan VTE Prophylaxis Risk score (from Ns)>0 risk: 8 [place]CD applied [place]from [facility] [place] SCD contraindicated: other Pharmacological prophylaxis: LMWH Lines/Catheters IV Catheter Type (from [facility]): Peripheral IV Urinary Cath still in place: Yes Reason Cath still needed: urinary retention Assessment/Plan Hospital Course S: Patient still with occasional agitation, MRI brain showed acute infarcts, neurology consulted and will see patient later today. On restraints O: VS - see below PHYSICAL EXAMINATION: GENERAL: lying in bed, opens eyes HEENT: Pupils are equal, round, reactive to light. Extraocular muscles are intact. NECK: Supple. Tracheostomy site looks clean, dry and intact. RESPIRATORY: Slightly distant breath sounds bilaterally. CARDIOVASCULAR: S1, S2 heard. No murmurs, rubs or gallops. ABDOMEN: G-tube in place. Normal bowel sounds. No rebound or guarding. MUSCULOSKELETAL: No lower extremity edema bilaterally. NEUROLOGIC: Unable to fully assess. MRI brain November 05, 2018: IMPRESSION: Evaluation is mildly limited due to motion degradation. 1. Focal symmetric bilateral globus pallidus restricted diffusion suggesting acute ischemia/infarction which can be seen with carbon monoxide exposure. 2. Scattered few acute / recent supratentorial as well as bilateral cerebellar infarctions as detailed above. Findings may be related to embolic phenomenon. 3. Left frontal approach ventriculostomy catheter. 4. Chronic right centrum semiovale lacunar infarction. 5. Susceptibility within the suprasellar cistern from aneurysm coil. 6. Mild bilateral mastoid air cell fluid. ASSESSMENT AND PLAN: 43-year-old male with history of subarachnoid hemorrhage with subsequent [employer] shunt, tracheostomy placement, G-tube placement, hypertension, high cholesterol, depression, gastroesophageal reflux disease, who comes in from outside facility with signs of pneumonia, elevated troponins, slight lactic acidosis and renal insufficiency. # Apnea and altered mental status - again likely secondary to positive brain MRI findings of infarct, there could be also component contributing from patient's pneumonia and possible non-ST elevation myocardial infarction. - Again for his pneumonia, continue broad-spectrum antibiotics, follow-up culture results -Have consulted neurology given the MRI brain findings, holding Haldol for now, continue high-dose aspirin and Lipitor -Continue Tylenol p.r.n. pain and fevers. -Follow-up further recommendations from speech eval # Elevated troponins - again signs of non-ST elevation myocardial infarction. - continue Lovenox 1 mg/kg daily per cardiology recommendations, continue to trend his troponins. -Continue high dose aspirin and high dose Lipitor, Morphine p.r.n., nitroglycerin p.r.n. # Renal insufficiency-resolving now, creatinine is presently normal -Monitor, follow-up recommendations from renal consult. - Continue IV fluids. # History of hypertension. Again, blood pressure is presently stable. - Continue to monitor for now. He is on hydralazine p.r.n. # History of high cholesterol. - Continue Lipitor. Follow up lipid panel. # Tracheostomy placement. - Continue oxygen supplementation via trach via mechanical ventilation. - Consider pulmonary consult if worsens # Deep venous thrombosis prophylaxis- Lovenox. # History of gastroesophageal reflux disease- H2 kendall. Dispo: Likely back to senior care facility in the next 1 to 2 days if patient continues to improve from infarct, neurology input given, and pneumonia and elevated troponins resolved. Result Diagram: 11/06/18 0459 11/06/18 0459 Results 24hrs Laboratory Tests Test 11/05/18 14:57 11/06/18 04:59 Creatine Kinase 110 Creatine Kinase Index 1.2 Creatinine Kinase MB (Mass) 1.31 Troponin I 1.350 *H White Blood Count 8.3 # Red Blood Count 3.72 L Hemoglobin 11.5 L Hematocrit 33.8 L Mean Corpuscular Volume 90.9 Mean Corpuscular Hemoglobin 30.9 Mean Corpuscular Hemoglobin Concent 34.0 Red Cell Distribution Width 11.9 Platelet Count 194 Mean Platelet Volume 9.9 Immature Granulocytes % 2.500 H Neutrophils % 53.5 Lymphocytes % 24.4 Monocytes % 13.4 H Eosinophils % 5.4 Basophils % 0.8 Nucleated Red Blood Cells % 0.0 Immature Granulocytes # 0.210 H Neutrophils # 4.4 Lymphocytes # 2.0 Monocytes # 1.1 H Eosinophils # 0.5 Basophils # 0.1 Nucleated Red Blood Cells # 0.0 Sodium Level 143 Potassium Level 3.3 L Chloride Level 106 Carbon Dioxide Level 28 Anion Gap 9 Blood Urea Nitrogen 3 L Creatinine 0.55 L Est Glomerular Filtrat Rate mL/min > 60 Glucose Level 73 Calcium Level 8.2 L Exam/Review of Systems Exam Vitals Vital Signs Date Temp Pulse Resp B/P (MAP) Pulse Ox O2 O2 Flow FiO2 Time Delivery Rate 11/06/18 100 19 95 40 09:22 11/06/18 98.0 168/92 08:17 (117) 11/05/18 Mechanical 18:30 Ventilator Intake and Output 11/05/18 11/05/18 11/06/18 1515:00 23:00 07:00 IntakeIntake Total 350 ml 100 ml 1000 ml OutputOutput Total 450 ml BalanceBalance 350 ml -350 ml 1000 ml Results Results 24hrs Laboratory Tests Test 11/05/18 14:57 11/06/18 04:59 Creatine Kinase 110 Creatine Kinase Index 1.2 Creatinine Kinase MB (Mass) 1.31 Troponin I 1.350 *H White Blood Count 8.3 # Red Blood Count 3.72 L Hemoglobin 11.5 L Hematocrit 33.8 L Mean Corpuscular Volume 90.9 Mean Corpuscular Hemoglobin 30.9 Mean Corpuscular Hemoglobin Concent 34.0 Red Cell Distribution Width 11.9 Platelet Count 194 Mean Platelet Volume 9.9 Immature Granulocytes % 2.500 H Neutrophils % 53.5 Lymphocytes % 24.4 Monocytes % 13.4 H Eosinophils % 5.4 Basophils % 0.8 Nucleated Red Blood Cells % 0.0 Immature Granulocytes # 0.210 H Neutrophils # 4.4 Lymphocytes # 2.0 Monocytes # 1.1 H Eosinophils # 0.5 Basophils # 0.1 Nucleated Red Blood Cells # 0.0 Sodium Level 143 Potassium Level 3.3 L Chloride Level 106 Carbon Dioxide Level 28 Anion Gap 9 Blood Urea Nitrogen 3 L Creatinine 0.55 L Est Glomerular Filtrat Rate mL/min > 60 Glucose Level 73 Calcium Level 8.2 L Medications Medication Current Medications Naloxone HCl (Narcan) 1 mg Q2M PRN IV LETHARGY Last administered on 11/03/18at 07:19; Admin Dose 1 MG; Start 11/03/18 at 07:00 IV Flush (NS 3 ml) 3 ml PER PROTOCOL IV ; Start 11/03/18 at 12:00 Ondansetron HCl (Zofran Inj) 4 mg Q6H PRN IV NAUSEA/VOMITING; Start 11/03/18 at 12:00 Acetaminophen (Tylenol Tab) 650 mg Q6H PRN PO .PAIN 1-3 OR TEMP; Start 11/03/18 at 12:00 Acetaminophen/ Hydrocodone Bitart ([place] (5/325)) 1 tab Q6H PRN PO .MOD PAIN 4- 6; Start 11/03/18 at 12:00 Docusate Sodium (Colace) 100 mg Q12H PRN PO .CONSTIPATION; Start 11/03/18 at 12:00 Magnesium Hydroxide (Milk Of Mag) 30 ml DAILY PRN PO .CONSTIPATION; Start 11/03/18 at 12:00 Famotidine (Pepcid Iv) 20 mg BID IV Last administered on 11/06/18at 08:51; Admin Dose 20 MG; Start 11/04/18 at 09:00 Sodium Chloride 1,000 ml @ 75 mls/hr [id number] IV Last administered on 11/04/18at 23:30; Admin Dose 75 MLS/HR; Start 11/03/18 at 11:40 Albuterol/ Ipratropium (Duoneb) 3 ml Q4H RESP THERAPY PRN HHN SHORTNESS OF BREATH Last administered on 11/06/18at 05:07; Admin Dose 3 ML; Start 11/03/18 at 12:00 Vancomycin HCl (Vanco Iv Per Pharmacy) VANCOMYCIN PER PHARMACY NOTE XX ; Start 11/03/18 at 12:00 Hydralazine HCl (Apresoline) 10 mg Q6H PRN IV ELEVATED BLOOD PRESSURE; Start 11/03/18 at 12:00 Nitroglycerin (Nitroglycerin (Sl Tab) 0.4 Mg) 1 tab Q5M PRN SL ANGINA; Start 11/03/18 at 12:00 Aspirin (Ecotrin) 325 mg DAILY PO Last administered on 11/06/18at 08:48; Admin Dose 325 MG; Start 11/04/18 at 09:00 Ascorbic Acid (Vitamin C) 500 mg DAILY GTB Last administered on 11/06/18at 08:50; Admin Dose 500 MG; Start 11/04/18 at 09:00 Atorvastatin Calcium (Lipitor) 80 mg QHS GTB Last administered on 11/05/18at 20:51; Admin Dose 80 MG; Start 11/03/18 at 21:00 Bisacodyl (Dulcolax Supp) 10 mg DAILY PRN [place] CONSTIPATION; Start 11/03/18 at 12:00 Chlorhexidine Gluconate (Peridex) 15 ml Q12H MM Last administered on 11/05/18 23:52; Admin Dose 15 ML; Start 11/03/18 at 12:00 Clonidine (Catapres) 0.2 mg Q8H PRN GTB SBP ABOVE 160; Start 11/03/18 at 12:00 Valproate Sodium (Depakene Liquid Cup) 500 mg BID GTB Last administered on 11/06/18 08:46; Admin Dose 500 MG; Start 11/03/18 at 21:00 Zinc Sulfate (Zinc Sulfate) 220 mg DAILY GTB Last administered on 11/06/18 08:47; Admin Dose 220 MG; Start 11/04/18 at 09:00 Lactobacillus Acidophilus/ Rhamnosus (Culturelle) 1 cap DAILY PO Last administered on 11/06/18 08:48; Admin Dose 1 CAP; Start 11/04/18 at 09:00 Multivitamins/ Minerals (Theragran-M) 1 tab DAILY PO Last administered on 11/06/18 08:50; Admin Dose 1 TAB; Start 11/04/18 at 09:00 Enoxaparin Sodium (Lovenox) 70 mg DAILY SC Last administered on 11/06/18 09:18; Admin Dose 70 MG; Start 11/04/18 at 09:00 Metoprolol Tartrate (Lopressor) 25 mg BID PO Last administered on 11/06/18 08:51; Admin Dose 25 MG; Start 11/03/18 at 21:00 Gabapentin (Neurontin) 600 mg BID GTB Last administered on 11/06/18 08:50; Admin Dose 600 MG; Start 11/04/18 at 12:00 Risperidone (Risperdal) 2 mg DAILY GTB Last administered on 11/06/18 08:48; Admin Dose 2 MG; Start 11/04/18 at 14:00 Vancomycin/Sodium Chloride 250 ml @ 125 mls/hr Q8H IVPB Last administered on 11/06/18 08:51; Admin Dose 125 MLS/HR; Start 11/05/18 at 17:00 Mupirocin (Bactroban) 1 applic BID TOP Last administered on 11/06/18 09:19; Admin Dose 1 APPLIC; Start 11/05/18 at 12:00 Haloperidol (Haldol) 1 mg Q4H PRN IV AGITATION; Start 11/06/18 at 08:30; Status Hold RAHI,BRANDT S. November 06, 2018 10:22
--- NOTE | 2018-11-06 11:11 | CONS ---
Assessment/Plan Assessment/Plan Hospital Course 43 yo M with multiple comorbidities who presents for evaluation of ams in the context of respiratory sx. 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 for which neurology is consulted. The clinical picture raises concern for a cardioembolic process. Vasculitis is not yet excluded.. Echo (TTE) is unrevealing. LDL 16 P: Add CTA H/N for further characterization Add hypercoag panel Recommend JAKE Cont ASA for secondary stroke prevention; LDL is at goal BP and other medical management per primary [place] as able Limit sedating medications where possible PT/OT/ST when able Will follow clinically, to recommend neurologic studies, as necessary Consultation Date/Type/Reason Admit Date/Time November 03, 2018 at 10:30 Type of Consult Neurology Reason for Consultation multifocal strokes Requesting Provider: BRANDT RAMÍREZ Date/Time of Note DATE: 11/06/18 TIME: 11:11 Hx of Present Illness The pt is currently unable to contribute a hx. It is elsewhere noted: CHIEF COMPLAINT: Sent in from nursing facility because of altered level of consciousness and apnea. HISTORY OF PRESENT ILLNESS: A 43-year-old male with past medical history of subarachnoid hemorrhage that occurred about 3 months ago, status post [employer] shunt placement, history of tracheostomy placement apparently at that time, high cholesterol, hypertension, who was brought in from senior living facility earlier today to the ER. The patient over there at baseline apparently is normal, awake and alert and conversive according to the staff; however, they found an apneic this morning and he had altered level of consciousness. They checked his blood sugar. It was actually in the normal range 150, but he appeared to have slow respirations and they actually began bagging him through the tracheostomy site. The patient was also found to have a slightly low blood pressure and the patient became more unresponsive, so he was transferred over here to the ER. Over here, he had a head CT scan performed that showed no acute intracranial pathology, but there is a left transfrontal ventriculostomy catheter coursing into the left frontal horn terminating near the left foramen of [place]ro but no hydrocephalus noted. 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 The patient has chest x-ray as well that showed signs of bilateral airspace opacity representing atelectasis or pneumonia and he was given antibiotics in the ER today. His white blood cell count was normal. He was also found with elevated troponin today 0.335 and lactic acid was high at 3.4. Subjective hx not possible: pt non-verbal Exam/Review of Systems Exam Vitals Vital Signs Date Temp Pulse Resp B/P (MAP) Pulse Ox O2 O2 Flow FiO2 Time Delivery Rate 11/06/18 98.2 74 18 116/67 94 10:25 (83) 11/06/18 40 09:22 11/05/18 Mechanical 18:30 Ventilator Intake and Output 11/05/18 11/05/18 11/06/18 1515:00 23:00 07:00 IntakeIntake Total 350 ml 100 ml 1000 ml OutputOutput Total 450 ml BalanceBalance 350 ml -350 ml 1000 ml Exam PE: Gen Appearance: No Apparent Distress HEENT: Trached Cardiovascular: Regular rate Abdomen: Soft Extremities: Dry NE: The patient was obtunded and nonverbal. Cranial nerve examination was limited by mental status. Pupils were equal and reactive to light. There was no afferent pupillary defect. Funduscopic examination was limited. Face was grossly symmetric, w/ present corneal and cough reflexes. Tone was normal. Muscle bulk was normal. I did not see fasciculations. The patient minimally withdrew to noxious stimulation x 4. Coordination and gait testing was limited by mental status. Arm and leg reflexes were within normal limits and symmetric. Carlson's sign was absent. Plantar responses were flexor. Results Result Diagram: 11/06/18 0459 11/06/18 0459 Results 24hrs Laboratory Tests Test 11/05/18 14:57 11/06/18 04:59 Creatine Kinase 110 Creatine Kinase Index 1.2 Creatinine Kinase MB (Mass) 1.31 Troponin I 1.350 *H White Blood Count 8.3 # Red Blood Count 3.72 L Hemoglobin 11.5 L Hematocrit 33.8 L Mean Corpuscular Volume 90.9 Mean Corpuscular Hemoglobin 30.9 Mean Corpuscular Hemoglobin Concent 34.0 Red Cell Distribution Width 11.9 Platelet Count 194 Mean Platelet Volume 9.9 Immature Granulocytes % 2.500 H Neutrophils % 53.5 Lymphocytes % 24.4 Monocytes % 13.4 H Eosinophils % 5.4 Basophils % 0.8 Nucleated Red Blood Cells % 0.0 Immature Granulocytes # 0.210 H Neutrophils # 4.4 Lymphocytes # 2.0 Monocytes # 1.1 H Eosinophils # 0.5 Basophils # 0.1 Nucleated Red Blood Cells # 0.0 Sodium Level 143 Potassium Level 3.3 L Chloride Level 106 Carbon Dioxide Level 28 Anion Gap 9 Blood Urea Nitrogen 3 L Creatinine 0.55 L Est Glomerular Filtrat Rate mL/min > 60 Glucose Level 73 Calcium Level 8.2 L Medications Medication Current Medications Naloxone HCl (Narcan) 1 mg Q2M PRN IV LETHARGY Last administered on 11/03/18at 07:19; Admin Dose 1 MG; Start 11/03/18 at 07:00 IV Flush (NS 3 ml) 3 ml PER PROTOCOL IV ; Start 11/03/18 at 12:00 Ondansetron HCl (Zofran Inj) 4 mg Q6H PRN IV NAUSEA/VOMITING; Start 11/03/18 at 12:00 Acetaminophen (Tylenol Tab) 650 mg Q6H PRN PO .PAIN 1-3 OR TEMP; Start 11/03/18 at 12:00 Acetaminophen/ Hydrocodone Bitart ([place] (5/325)) 1 tab Q6H PRN PO .MOD PAIN 4- 6; Start 11/03/18 at 12:00 Docusate Sodium (Colace) 100 mg Q12H PRN PO .CONSTIPATION; Start 11/03/18 at 12:00 Magnesium Hydroxide (Milk Of Mag) 30 ml DAILY PRN PO .CONSTIPATION; Start 11/03/18 at 12:00 Famotidine (Pepcid Iv) 20 mg BID IV Last administered on 11/06/18at 08:51; Admin Dose 20 MG; Start 11/04/18 at 09:00 Sodium Chloride 1,000 ml @ 75 mls/hr [id number] IV Last administered on 11/04/18at 23:30; Admin Dose 75 MLS/HR; Start 11/03/18 at 11:40 Albuterol/ Ipratropium (Duoneb) 3 ml Q4H RESP THERAPY PRN HHN SHORTNESS OF BREATH Last administered on 11/06/18at 05:07; Admin Dose 3 ML; Start 11/03/18 at 12:00 Vancomycin HCl (Vanco Iv Per Pharmacy) VANCOMYCIN PER PHARMACY NOTE XX ; Start 11/03/18 at 12:00 Hydralazine HCl (Apresoline) 10 mg Q6H PRN IV ELEVATED BLOOD PRESSURE; Start 11/03/18 at 12:00 Nitroglycerin (Nitroglycerin (Sl Tab) 0.4 Mg) 1 tab Q5M PRN SL ANGINA; Start 11/03/18 at 12:00 Aspirin (Ecotrin) 325 mg DAILY PO Last administered on 11/06/18 08:48; Admin Dose 325 MG; Start 11/04/18 at 09:00 Ascorbic Acid (Vitamin C) 500 mg DAILY GTB Last administered on 11/06/18 08:50; Admin Dose 500 MG; Start 11/04/18 at 09:00 Atorvastatin Calcium (Lipitor) 80 mg QHS GTB Last administered on 11/05/18 20:51; Admin Dose 80 MG; Start 11/03/18 at 21:00 Bisacodyl (Dulcolax Supp) 10 mg DAILY PRN OR CONSTIPATION; Start 11/03/18 at 12:00 Chlorhexidine Gluconate (Peridex) 15 ml Q12H MM Last administered on 11/05/18 23:52; Admin Dose 15 ML; Start 11/03/18 at 12:00 Clonidine (Catapres) 0.2 mg Q8H PRN GTB SBP ABOVE 160; Start 11/03/18 at 12:00 Valproate Sodium (Depakene Liquid Cup) 500 mg BID GTB Last administered on 11/06/18 08:46; Admin Dose 500 MG; Start 11/03/18 at 21:00 Zinc Sulfate (Zinc Sulfate) 220 mg DAILY GTB Last administered on 11/06/18 08:47; Admin Dose 220 MG; Start 11/04/18 at 09:00 Lactobacillus Acidophilus/ Rhamnosus (Culturelle) 1 cap DAILY PO Last administered on 11/06/18 08:48; Admin Dose 1 CAP; Start 11/04/18 at 09:00 Multivitamins/ Minerals (Theragran-M) 1 tab DAILY PO Last administered on 11/06/18 08:50; Admin Dose 1 TAB; Start 11/04/18 at 09:00 Enoxaparin Sodium (Lovenox) 70 mg DAILY SC Last administered on 11/06/18 09:18; Admin Dose 70 MG; Start 11/04/18 at 09:00 Metoprolol Tartrate (Lopressor) 25 mg BID PO Last administered on 11/06/18 08:51; Admin Dose 25 MG; Start 11/03/18 at 21:00 Gabapentin (Neurontin) 600 mg BID GTB Last administered on 11/06/18at 08:50; Admin Dose 600 MG; Start 11/04/18 at 12:00 Risperidone (Risperdal) 2 mg DAILY GTB Last administered on 11/06/18at 08:48; Admin Dose 2 MG; Start 11/04/18 at 14:00 Vancomycin/Sodium Chloride 250 ml @ 125 mls/hr Q8H IVPB Last administered on 11/06/18at 08:51; Admin Dose 125 MLS/HR; Start 11/05/18 at 17:00 Mupirocin (Bactroban) 1 applic BID TOP Last administered on 11/06/18at 09:19; Admin Dose 1 APPLIC; Start 11/05/18 at 12:00 Quetiapine Fumarate (Seroquel) 12.5 mg Q8 PRN GTB AGITATION; Start 11/06/18 at 11:00 Past Medical History reviewed Home Meds Reported Medications Zinc Sulfate* (Zinc Sulfate*) 220 Mg Tablet, 220 MG GTB DAILY, TAB STOP TAKING 11/21/18 11/03/18 Ascorbic Acid* (Vitamin C*) 500 Mg Capsule.sa, 500 MG GTB DAILY, CAP 11/03/18 Valproic Acid* (Valproic Acid* Liq) 250 Mg/5 Ml Syrup, 10 ML GTB BID, ML 11/03/18 Cran/Vitc/Mannose/Inulin/Brom (Uti-Stat Liquid) 3,875 Mg/30 Ml Liquid, 30 ML GTB DAILY 11/03/18 Acetaminophen* (Acetaminophen*) 500 MG Extra Strength Tablet, 1000 MG GTB Q4H PRN for PAIN -11/21, TAB 11/03/18 Acetaminophen* (Tylenol*) 325 Mg Tablet, 650 MG GTB BID PRN for PAIN AND OR ELEVATED TEMP, TAB 11/03/18 Acetaminophen* (Tylenol*) 325 Mg Tablet, 650 MG GTB Q4H PRN for MILD PAIN LEVEL 1-3, TAB AND FEVER 101F,STOP DATE 12/21/18 11/03/18 Acetaminophen* (Tylenol*) 325 Mg Tablet, 650 MG GTB NEEDED PRN for TRACH TUBE CHANGE, TAB 11/03/18 Risperidone* (Risperdal*) 1 Mg Tablet, 2 MG GTB DAILY, TAB STOP DATE 11/05/18 11/03/18 Amino Acids/Protein Hydrolys (PRO-STAT LIQUID) 30 Ml Liquid.pkt, 30 ML GTB BID 11/03/18 Hydrocodone/Acetaminophen ([place] 5-325 Tablet) 1 Each Tablet, 1 EACH GTB Q6H PRN for PAIN 7-10, TAB 11/03/18 Multivitamin with Minerals (Multivitamins with Minerals) 1 Each Tablet, 1 EACH GTB DAILY, TAB 11/03/18 Magnesium Hydroxide* (Milk Of Magnesia*) 400 Mg/5 Ml Oral.susp, 30 ML GTB NEEDED, ML 11/03/18 Heparin Sodium,Porcine/Pf (HEPARIN SOD 5,000 UNIT/ 0.5 ML) 5,000 Unit/0.5 Ml Vial, 5000 UNIT IJ Q12H, VIAL 11/03/18 Gabapentin* (Gabapentin*) 300 Mg Capsule, 600 MG GTB BID, #180 CAP 11/03/18 Mineral Oil* (Fleet* Mineral Oil Enema) Unknown Strength Oil, 1 APPLIC OR NEEDED PRN for CONSTIPATION, ENEMA 11/03/18 Bisacodyl (Dulcolax) 10 Mg Supp.rect, 10 MG RC PRN, SUPP.RECT 11/03/18 Docusate Sodium* (Colace*) 100 Mg Capsule, 200 MG GTB QHS, #60 CAP 11/03/18 Clonidine Hcl* (Clonidine Hcl*) 0.1 Mg Tab, 0.2 MG GTB Q8H PRN for HTN, TAB HOLD FOR SBPBELOW 110 OR HR BELOW 60 11/03/18 Chlorhexidine Gluconate (Periogard) 473 Ml Mouthwash, 15 ML MM Q12H, BOTTLE 11/03/18 Atorvastatin* (Atorvastatin*) 40 Mg Tablet, 80 MG GTB QHS, #30 TAB 11/03/18 Albuterol Sulfate* (Albuterol Sulfate* Neb) 0.083%-3 Ml Neb, 2.5 MG NEB Q6H PRN for WHEEZING AND SOB, #30 VIAL AND NEEDED Q3H 11/03/18 Lactobacillus Acidophilus/Pect (Acidophilus-Pectin Capsule) 1 Each Capsule, 1 EACH GTB DAILY, CAP 11/03/18 Discontinued Reported Medications Pantoprazole Sodium (Protonix) 40 Mg Granpkt.dr, 40 MG GTB DAILY 11/03/18 Lactobacillus Acidophilus* (Lactinex*) 1 Tab Chew, 1 TAB GTB DAILY, TAB 11/03/18 Medications Current Medications Naloxone HCl (Narcan) 1 mg Q2M PRN IV LETHARGY Last administered on 11/03/18at 07:19; Admin Dose 1 MG; Start 11/03/18 at 07:00 IV Flush (NS 3 ml) 3 ml PER PROTOCOL IV ; Start 11/03/18 at 12:00 Ondansetron HCl (Zofran Inj) 4 mg Q6H PRN IV NAUSEA/VOMITING; Start 11/03/18 at 12:00 Acetaminophen (Tylenol Tab) 650 mg Q6H PRN PO .PAIN 1-3 OR TEMP; Start 11/03/18 at 12:00 Acetaminophen/ Hydrocodone Bitart ([place] (5/325)) 1 tab Q6H PRN PO .MOD PAIN 4- 6; Start 11/03/18 at 12:00 Docusate Sodium (Colace) 100 mg Q12H PRN PO .CONSTIPATION; Start 11/03/18 at 12:00 Magnesium Hydroxide (Milk Of Mag) 30 ml DAILY PRN PO .CONSTIPATION; Start 11/03 at 12:00 Famotidine (Pepcid Iv) 20 mg BID IV Last administered on 11/06/18at 08:51; Admin Dose 20 MG; Start 11/04/18 at 09:00 Sodium Chloride 1,000 ml @ 75 mls/hr [id number] IV Last administered on 11/04/18at 23:30; Admin Dose 75 MLS/HR; Start 11/03/18 at 11:40 Albuterol/ Ipratropium (Duoneb) 3 ml Q4H RESP THERAPY PRN HHN SHORTNESS OF BREATH Last administered on 11/06/18at 05:07; Admin Dose 3 ML; Start 11/03/18 at 12:00 Vancomycin HCl (Vanco Iv Per Pharmacy) VANCOMYCIN PER PHARMACY NOTE XX ; Start 11/03/18 at 12:00 Hydralazine HCl (Apresoline) 10 mg Q6H PRN IV ELEVATED BLOOD PRESSURE; Start 11/03/18 at 12:00 Nitroglycerin (Nitroglycerin (Sl Tab) 0.4 Mg) 1 tab Q5M PRN SL ANGINA; Start 11/03/18 at 12:00 Aspirin (Ecotrin) 325 mg DAILY PO Last administered on 11/06/18 08:48; Admin Dose 325 MG; Start 11/04/18 at 09:00 Ascorbic Acid (Vitamin C) 500 mg DAILY GTB Last administered on 11/06/18 08:50; Admin Dose 500 MG; Start 11/04/18 at 09:00 Atorvastatin Calcium (Lipitor) 80 mg QHS GTB Last administered on 11/05/18 20:51; Admin Dose 80 MG; Start 11/03/18 at 21:00 Bisacodyl (Dulcolax Supp) 10 mg DAILY PRN OR CONSTIPATION; Start 11/03/18 at 12:00 Chlorhexidine Gluconate (Peridex) 15 ml Q12H MM Last administered on 11/05/18 23:52; Admin Dose 15 ML; Start 11/03/18 at 12:00 Clonidine (Catapres) 0.2 mg Q8H PRN GTB SBP ABOVE 160; Start 11/03/18 at 12:00 Valproate Sodium (Depakene Liquid Cup) 500 mg BID GTB Last administered on 11/06/18 08:46; Admin Dose 500 MG; Start 11/03/18 at 21:00 Zinc Sulfate (Zinc Sulfate) 220 mg DAILY GTB Last administered on 11/06/18 08:47; Admin Dose 220 MG; Start 11/04/18 at 09:00 Lactobacillus Acidophilus/ Rhamnosus (Culturelle) 1 cap DAILY PO Last administered on 11/06/18 08:48; Admin Dose 1 CAP; Start 11/04/18 at 09:00 Multivitamins/ Minerals (Theragran-M) 1 tab DAILY PO Last administered on 11/06/18 08:50; Admin Dose 1 TAB; Start 11/04/18 at 09:00 Enoxaparin Sodium (Lovenox) 70 mg DAILY SC Last administered on 11/06/18 09:18; Admin Dose 70 MG; Start 11/04/18 at 09:00 Metoprolol Tartrate (Lopressor) 25 mg BID PO Last administered on 11/06/18 08:51; Admin Dose 25 MG; Start 11/03/18 at 21:00 Gabapentin (Neurontin) 600 mg BID GTB Last administered on 5/26/19at 08:50; Admin Dose 600 MG; Start 11/04/18 at 12:00 Risperidone (Risperdal) 2 mg DAILY GTB Last administered on 11/06/18at 08:48; Admin Dose 2 MG; Start 11/04/18 at 14:00 Vancomycin/Sodium Chloride 250 ml @ 125 mls/hr Q8H IVPB Last administered on 11/06/18at 08:51; Admin Dose 125 MLS/HR; Start 11/05/18 at 17:00 Mupirocin (Bactroban) 1 applic BID TOP Last administered on 11/06/18at 09:19; Admin Dose 1 APPLIC; Start 11/05/18 at 12:00 Quetiapine Fumarate (Seroquel) 12.5 mg Q8 PRN GTB AGITATION; Start 11/06/18 at 11:00 Allergies: Coded Allergies: No Known Allergy (Unverified , 11/03/18) Past Surgical History reviewed Social History reviewed Smoking Status: Unknown if ever smoked MOY BENJAMIN NP November 06, 2018 11:11 ISA CRUM November 07, 2018 05:22
--- NOTE | 2018-11-06 11:20 | PN ---
DATE: 11/06/2018 SUBJECTIVE: The patient is stable, no events overnight. OBJECTIVE: VITAL SIGNS: Blood pressure is 168/92, pulse 93, respirations 18, temperature 98.0. HEENT: Head is normocephalic. NECK: Supple. HEART: Regular rate. LUNGS: Show diminished breath sounds at the base. ABDOMEN: Soft, nontender to palpation without rebound or guarding. EXTREMITIES: Negative for clubbing, cyanosis, no edema. DERMATOLOGIC: No rashes. MUSCULOSKELETAL: No joint effusion. NEUROLOGIC: No change in exam. MEDICATIONS: The patient's medications have been reviewed. LABORATORY DATA: Has been reviewed. ASSESSMENT AND PLAN: 1. Nonoliguric acute kidney injury with unknown baseline creatinine. Etiology of FELECIA is hemodynamic sepsis. Renal function is improved. Continue current treatment plans, supportive care and renally dose all meds. 2. Hypokalemia. Will replete with potassium chloride. 3. Anemia. Monitor hemoglobin and hematocrit levels. 4. Mineral bone disorder. Monitor calcium and phosphorus levels. 5. Ventilator dependent respiratory failure. Vent settings have been reviewed. Continue to monitor . 6. Acute encephalopathy, etiology is toxic metabolic. 7. Hypertension. Continue current blood pressure regimen. 8. Dyslipidemia. Continue statin therapy. 9. Sepsis with bacteremia. The patient is completing an antibiotic course. 10. Elevated troponin. Non-STEMI type 1. Continue current medical management. Follow up with Cardiol brandy. 11. Arrhythmia. Continue to monitor. 12. History of ventriculoperitoneal shunt. Liver recently diagnosed elevated troponin. 11. Elevated troponin. Dictated By: RENEE DUONG/PRISCILLA Conf#: [id number] DID#: [id number] CC: BRANDT RAMÍREZ; ISA CRUM;*EndCC*
[2018-11-06] MEDS: CHLORHEXIDINE GLUCONATE 15 ML UD CUP MM SCH (12:17)
--- NOTE | 2018-11-06 15:34 | CONS ---
Assessment/Plan Assessment/Plan Hospital Course (Demo Recall) IMPRESSION: 1. Positive troponin with uptrending consistent with non-ST elevation myocardial infarction-Echo EF 50-55 11/03 2. Abnormal electrocardiogram with incomplete right bundle branch block. 3. Tachycardia, mild. 4. Chronic respiratory failure, status post tracheostomy. 5. Dysphagia, status post G-tube. 6. History of subarachnoid hemorrhage. 7. History of ventriculoperitoneal shunt. 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 -Continue to trend cardiac enzymes which are downtrending Consultation Date/Type/Reason Admit Date/Time November 03, 2018 at 10:30 Initial Consult Date 11/04/18 Type of Consult Cardiology Reason for Consultation Nstemi Requesting Provider: BRANDT RAMÍREZ Date/Time of Note DATE: 11/06/18 TIME: 15:31 Exam/Review of Systems Vital Signs Vitals Vital Signs Date Temp Pulse Resp B/P (MAP) Pulse Ox O2 O2 Flow FiO2 Time Delivery Rate 11/06/18 60 14 100 40 14:50 11/06/18 97.8 99/62 (74) 14:00 11/06/18 Mechanical 12:30 Ventilator Intake and Output 11/05/18 11/05/18 11/06/18 1515:00 23:00 07:00 IntakeIntake Total 350 ml 100 ml 1000 ml OutputOutput Total 450 ml BalanceBalance 350 ml -350 ml 1000 ml Exam Exam Review of Systems: CONSTITUTIONAL: No fevers, chills. PULMONARY: No sob CARDIOVASCULAR: No chest pain/palpitations GASTROINTESTINAL: No nausea/vomiting. GENITOURINARY: No hematuria/dysuria. MUSCULOSKELETAL: No myagias/arthalgias. PSYCHIATRIC: The patient denies depression. NEUROLOGIC: No weakness Constitutional: alert Psych: no complaints Head: normocephalic ENMT: mucosa pink and moist Neck: supple, jvd (9 cm water) Respiratory: diminished breath sounds Cardiovascular: regular rate and rhythm Gastrointestinal: soft, non-tender Musculoskeletal: muscle weakness (generalized) Extremities: edema (none) Neurological: other (No focal deficits) Labs Result Diagram: 11/06/18 0459 11/06/18 0459 Results 24hrs Laboratory Tests Test 11/06/18 04:59 11/06/18 10:38 11/06/18 14:34 White Blood Count 8.3 # Red Blood Count 3.72 L Hemoglobin 11.5 L Hematocrit 33.8 L Mean Corpuscular Volume 90.9 Mean Corpuscular Hemoglobin 30.9 Mean Corpuscular Hemoglobin Concent 34.0 Red Cell Distribution Width 11.9 Platelet Count 194 Mean Platelet Volume 9.9 Immature Granulocytes % 2.500 H Neutrophils % 53.5 Lymphocytes % 24.4 Monocytes % 13.4 H Eosinophils % 5.4 Basophils % 0.8 Nucleated Red Blood Cells % 0.0 Immature Granulocytes # 0.210 H Neutrophils # 4.4 Lymphocytes # 2.0 Monocytes # 1.1 H Eosinophils # 0.5 Basophils # 0.1 Nucleated Red Blood Cells # 0.0 Sodium Level 143 Potassium Level 3.3 L Chloride Level 106 Carbon Dioxide Level 28 Anion Gap 9 Blood Urea Nitrogen 3 L Creatinine 0.55 L Est Glomerular Filtrat Rate mL/min > 60 Glucose Level 73 Calcium Level 8.2 L Troponin I 1.060 *H D-Dimer 931.28 H D-Dimer Comment Medications Medications Current Medications Naloxone HCl (Narcan) 1 mg Q2M PRN IV LETHARGY Last administered on 11/03/18at 07:19; Admin Dose 1 MG; Start 11/03/18 at 07:00 IV Flush (NS 3 ml) 3 ml PER PROTOCOL IV ; Start 11/03/18 at 12:00 Ondansetron HCl (Zofran Inj) 4 mg Q6H PRN IV NAUSEA/VOMITING; Start 11/03/18 at 12:00 Acetaminophen (Tylenol Tab) 650 mg Q6H PRN PO .PAIN 1-3 OR TEMP; Start 11/03/18 at 12:00 Acetaminophen/ Hydrocodone Bitart ([place] (5/325)) 1 tab Q6H PRN PO .MOD PAIN 4- 6; Start 11/03/18 at 12:00 Docusate Sodium (Colace) 100 mg Q12H PRN PO .CONSTIPATION; Start 11/03/18 at 12:00 Magnesium Hydroxide (Milk Of Mag) 30 ml DAILY PRN PO .CONSTIPATION; Start 11/03/18 at 12:00 Famotidine (Pepcid Iv) 20 mg BID IV Last administered on 5/26/19at 08:51; Admin Dose 20 MG; Start 11/04/18 at 09:00 Albuterol/ Ipratropium (Duoneb) 3 ml Q4H RESP THERAPY PRN HHN SHORTNESS OF BREATH Last administered on 11/06/18at 05:07; Admin Dose 3 ML; Start 11/03/18 at 12:00 Vancomycin HCl (Vanco Iv Per Pharmacy) VANCOMYCIN PER PHARMACY NOTE XX ; Start 11/03/18 at 12:00 Hydralazine HCl (Apresoline) 10 mg Q6H PRN IV ELEVATED BLOOD PRESSURE; Start 11/03/18 at 12:00 Nitroglycerin (Nitroglycerin (Sl Tab) 0.4 Mg) 1 tab Q5M PRN SL ANGINA; Start 11/03/18 at 12:00 Aspirin (Ecotrin) 325 mg DAILY PO Last administered on 11/06/18 08:48; Admin Dose 325 MG; Start 11/04/18 at 09:00 Ascorbic Acid (Vitamin C) 500 mg DAILY GTB Last administered on 11/06/18at 08:50; Admin Dose 500 MG; Start 11/04/18 at 09:00 Atorvastatin Calcium (Lipitor) 80 mg QHS GTB Last administered on 11/05/18 20:51; Admin Dose 80 MG; Start 11/03/18 at 21:00 Bisacodyl (Dulcolax Supp) 10 mg DAILY PRN [place] CONSTIPATION; Start 11/03/18 at 12:00 Chlorhexidine Gluconate (Peridex) 15 ml Q12H MM Last administered on 11/06/18 12:17; Admin Dose 15 ML; Start 11/03/18 at 12:00 Clonidine (Catapres) 0.2 mg Q8H PRN GTB SBP ABOVE 160; Start 11/03/18 at 12:00 Valproate Sodium (Depakene Liquid Cup) 500 mg BID GTB Last administered on 11/06/18 08:46; Admin Dose 500 MG; Start 11/03/18 at 21:00 Zinc Sulfate (Zinc Sulfate) 220 mg DAILY GTB Last administered on 11/06/18at 0 8:47; Admin Dose 220 MG; Start 11/04/18 at 09:00 Lactobacillus Acidophilus/ Rhamnosus (Culturelle) 1 cap DAILY PO Last administered on 11/06/18 08:48; Admin Dose 1 CAP; Start 11/04/18 at 09:00 Multivitamins/ Minerals (Theragran-M) 1 tab DAILY PO Last administered on 11/06/18 08:50; Admin Dose 1 TAB; Start 11/04/18 at 09:00 Enoxaparin Sodium (Lovenox) 70 mg DAILY SC Last administered on 11/06/18 09:18; Admin Dose 70 MG; Start 11/04/18 at 09:00 Metoprolol Tartrate (Lopressor) 25 mg BID PO Last administered on 11/06/18 08:51; Admin Dose 25 MG; Start 11/03/18 at 21:00 Gabapentin (Neurontin) 600 mg BID GTB Last administered on 11/06/18 08:50; Admin Dose 600 MG; Start 11/04/18 at 12:00 Risperidone (Risperdal) 2 mg DAILY GTB Last administered on 11/06/18 08:48; Admin Dose 2 MG; Start 11/04/18 at 14:00 Vancomycin/Sodium Chloride 250 ml @ 125 mls/hr Q8H IVPB Last administered on 11/06/18 08:51; Admin Dose 125 MLS/HR; Start 11/05/18 at 17:00 Mupirocin (Bactroban) 1 applic BID TOP Last administered on 11/06/18 09:19; Admin Dose 1 APPLIC; Start 11/05/18 at 12:00 Quetiapine Fumarate (Seroquel) 12.5 mg Q8 PRN GTB AGITATION; Start 11/06/18 at 11:00 Miscellaneous Information (*Rx Drug Level Order Reminder*) VANCO TR LEVEL PRIOR... 0000 ONCE XX ; Start 11/07/18 at 00:00; Stop 11/07/18 at 00:01 NORMAN KESSLER November 06, 2018 15:34
[2018-11-06] MEDS: DIPHENHYDRAMINE 50 MG INJ IV PRN (17:53)
[2018-11-06] MEDS: ATORVASTATIN 40 MG TAB GTB SCH (20:27)
[2018-11-06] MEDS: QUETIAPINE 25 MG TAB GTB PRN (20:28)
[2018-11-07] VITALS (29 sets, daily range): BP systolic 92–155; BP diastolic 60–99; PULSE 53–102; RESP 14–37
[2018-11-07] MEDS: DIPHENHYDRAMINE 50 MG INJ IV PRN ×3 (00:50→17:46)
[2018-11-07] MEDS: VANCOMYCIN 750 MG (PMX) 250 ML IVPB SCH (00:50)
[2018-11-07] MEDS: CHLORHEXIDINE GLUCONATE 15 ML UD CUP MM SCH ×2 (00:50→10:03)
[2018-11-07] MEDS: QUETIAPINE 25 MG TAB GTB PRN ×3 (04:28→22:28)
--- NOTE | 2018-11-07 08:43 | PN ---
DATE: 11/07/2018 SUBJECTIVE: The patient is stable, no events overnight. OBJECTIVE: VITAL SIGNS: Blood pressure is 147/88, respirations 18, pulse 102, temperature 98.7. HEENT: Head is normocephalic. NECK: Supple. HEART: Regular rate. LUNGS: Show diminished breath sounds at the base. ABDOMEN: Soft, nontender to palpation without rebound or guarding. EXTREMITIES: Negative for clubbing, cyanosis, no edema. DERMATOLOGIC: No rashes. MUSCULOSKELETAL: No joint effusion. NEUROLOGIC: No change in exam. MEDICATIONS: Reviewed. LABORATORY DATA: Reviewed. ASSESSMENT AND PLAN: 1. Nonoliguric acute kidney injury with unknown baseline creatinine. Etiology of acute kidney injur y is secondary to hemodynamics, sepsis. Renal function is improved. Continue current treatment plan , supportive care, renally dose all medications. 2. Hypokalemia. Continue to monitor and replete. 3. Anemia. Monitor hemoglobin and hematocrit levels. 4. Mineral bone disorder. Continue to monitor calcium and phosphorus levels. 5. Ventilator-dependent respiratory failure. Vent settings have been reviewed. Continue to monitor . 6. Acute encephalopathy, etiology is toxic metabolic. 7. Hypertension. Continue current blood pressure regimen. 8. Dyslipidemia. Continue statin therapy. 9. Sepsis, bacteremia. The patient is currently stable on antibiotic course. Continue. 10. Non-ST elevation myocardial infarction. Continue medical management. Continue to monitor seria l troponins. Follow up with cardiology. 11. Arrhythmia. Continue to monitor. 12. History of ventriculoperitoneal shunt. Dictated By: RENEE DUONG/PRISCILLA Conf#: [id number] DID#: [id number] CC: BRANDT RAMÍREZ; ISA CRUM;*EndCC*
--- NOTE | 2018-11-07 09:26 | PN ---
Date/Time of Note Date/Time of Note DATE: 11/07/18 TIME: 09:23 Assessment/Plan VTE Prophylaxis Risk score (from Ns)>0 risk: 5 SCD applied (from Ns): No SCD contraindicated: other Pharmacological prophylaxis: LMWH Lines/Catheters IV Catheter Type (from [facility]): Peripheral IV Urinary Cath still in place: Yes Reason Cath still needed: urinary retention Assessment/Plan Hospital Course S: Patient still with some agitation, now on Seroquel and seen by neurology and cardiology teams yesterday. Awaiting CTA head neck. O: VS - see below PHYSICAL EXAMINATION: GENERAL: lying in bed, opens eyes HEENT: Pupils are equal, round, reactive to light. Extraocular muscles are intact. NECK: Supple. Tracheostomy site looks clean, dry and intact. RESPIRATORY: Slightly distant breath sounds bilaterally. CARDIOVASCULAR: S1, S2 heard. No murmurs, rubs or gallops. ABDOMEN: G-tube in place. Normal bowel sounds. No rebound or guarding. MUSCULOSKELETAL: No lower extremity edema bilaterally. NEUROLOGIC: Unable to fully assess. MRI brain November 05, 2018: IMPRESSION: Evaluation is mildly limited due to motion degradation. 1. Focal symmetric bilateral globus pallidus restricted diffusion suggesting acute ischemia/infarction which can be seen with carbon monoxide exposure. 2. Scattered few acute / recent supratentorial as well as bilateral cerebellar infarctions as detailed above. Findings may be related to embolic phenomenon. 3. Left frontal approach ventriculostomy catheter. 4. Chronic right centrum semiovale lacunar infarction. 5. Susceptibility within the suprasellar cistern from aneurysm coil. 6. Mild bilateral mastoid air cell fluid. 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 # Apnea and altered mental status - again likely secondary to positive brain MRI findings of infarct, there could be also component contributing from patient's pneumonia and possible non-ST elevation myocardial infarction. - Again for his pneumonia, continue broad-spectrum antibiotics, follow-up culture results -Per neurology team, hold off on benzos, continue Seroquel as needed, follow- up results of CTA head neck. Also follow-up hypercoagulable work-up panel, continue aspirin. -Per discussed with neurology team, they are requesting JAKE to be performed given the MRI brain findings. Will discuss with cardiology team. -Continue Tylenol p.r.n. pain and fevers. -Follow-up further recommendations from speech eval # Elevated troponins - again signs of non-ST elevation myocardial infarction. - continue Lovenox 1 mg/kg daily per cardiology recommendations, continue to trend his troponins. -Continue high dose aspirin and Lipitor, Morphine p.r.n., nitroglycerin p.r.n. # Renal insufficiency-resolving now, creatinine is presently normal -Monitor, follow-up recommendations from renal consult. - Continue IV fluids. # History of hypertension. Again, blood pressure is presently stable. - Continue to monitor for now. He is on hydralazine p.r.n. # History of high cholesterol. - Continue Lipitor. # Tracheostomy placement stable - Continue oxygen supplementation via trach via mechanical ventilation. - Consider pulmonary consult if worsens # Deep venous thrombosis prophylaxis- Lovenox. # History of gastroesophageal reflux disease- H2 kendall. Result Diagram: 11/07/18 0640 11/07/18 0640 Results 24hrs Laboratory Tests Test 11/06/18 10:38 11/06/18 14:34 11/06/18 14:40 11/07/18 00:40 Troponin I 1.060 *H 1.040 *H Erythrocyte 57 H Sedimentation Rate D-Dimer 931.28 H D-Dimer Comment HIV (1&2) Antibody NEGATIVE Vancomycin Level 9.5 L Trough Test 11/07/18 06:40 White Blood Count 7.2 Red Blood Count 4.02 L Hemoglobin 12.4 L Hematocrit 36.4 L Mean Corpuscular 90.5 Volume Mean Corpuscular 30.8 Hemoglobin Mean Corpuscular 34.1 Hemoglobin Concent Red Cell 12.0 Distribution Width Platelet Count 247 # Mean Platelet Volume 9.3 Immature 1.700 H Granulocytes % Neutrophils % 56.4 Lymphocytes % 24.9 Monocytes % 12.0 H Eosinophils % 4.3 Basophils % 0.7 Nucleated Red Blood 0.0 Cells % Immature 0.120 H Granulocytes # Neutrophils # 4.0 Lymphocytes # 1.8 Monocytes # 0.9 Eosinophils # 0.3 Basophils # 0.1 Nucleated Red Blood 0.0 Cells # Sodium Level 144 Potassium Level 3.5 Chloride Level 107 Carbon Dioxide Level 31 Anion Gap 6 Blood Urea Nitrogen < 2 L Creatinine 0.57 L Est Glomerular > 60 Filtrat Rate mL/min Glucose Level 93 Calcium Level 8.7 Exam/Review of Systems Exam Vitals Vital Signs Date Temp Pulse Resp B/P (MAP) Pulse Ox O2 O2 Flow FiO2 Time Delivery Rate 11/07/18 97 09:12 11/07/18 98.7 18 147/88 97 Mechanical 07:21 (107) Ventilator 11/07/18 30 04:50 Intake and Output 11/06/18 11/06/18 11/07/18 1515:00 23:00 07:00 IntakeIntake Total 250 ml 330 ml 700 ml OutputOutput Total 1300 ml 2000 ml BalanceBalance 250 ml -970 ml -1300 ml Results Results 24hrs Laboratory Tests Test 11/06/18 10:38 11/06/18 14:34 11/06/18 14:40 11/07/18 00:40 Troponin I 1.060 *H 1.040 *H Erythrocyte 57 H Sedimentation Rate D-Dimer 931.28 H D-Dimer Comment HIV (1&2) Antibody NEGATIVE Vancomycin Level 9.5 L Trough Test 11/07/18 06:40 White Blood Count 7.2 Red Blood Count 4.02 L Hemoglobin 12.4 L Hematocrit 36.4 L Mean Corpuscular 90.5 Volume Mean Corpuscular 30.8 Hemoglobin Mean Corpuscular 34.1 Hemoglobin Concent Red Cell 12.0 Distribution Width Platelet Count 247 # Mean Platelet Volume 9.3 Immature 1.700 H Granulocytes % Neutrophils % 56.4 Lymphocytes % 24.9 Monocytes % 12.0 H Eosinophils % 4.3 Basophils % 0.7 Nucleated Red Blood 0.0 Cells % Immature 0.120 H Granulocytes # Neutrophils # 4.0 Lymphocytes # 1.8 Monocytes # 0.9 Eosinophils # 0.3 Basophils # 0.1 Nucleated Red Blood 0.0 Cells # Sodium Level 144 Potassium Level 3.5 Chloride Level 107 Carbon Dioxide Level 31 Anion Gap 6 Blood Urea Nitrogen < 2 L Creatinine 0.57 L Est Glomerular > 60 Filtrat Rate mL/min Glucose Level 93 Calcium Level 8.7 Medications Medication Current Medications Naloxone HCl (Narcan) 1 mg Q2M PRN IV LETHARGY Last administered on 11/03/18at 07:19; Admin Dose 1 MG; Start 11/03/18 at 07:00 IV Flush (NS 3 ml) 3 ml PER PROTOCOL IV ; Start 11/03/18 at 12:00 Ondansetron HCl (Zofran Inj) 4 mg Q6H PRN IV NAUSEA/VOMITING; Start 11/03/18 at 12:00 Acetaminophen (Tylenol Tab) 650 mg Q6H PRN PO .PAIN 1-3 OR TEMP; Start 11/03/18 at 12:00 Acetaminophen/ Hydrocodone Bitart ([place] (5/325)) 1 tab Q6H PRN PO .MOD PAIN 4- 6; Start 11/03/18 at 12:00 Docusate Sodium (Colace) 100 mg Q12H PRN PO .CONSTIPATION; Start 11/03/18 at 12:00 Magnesium Hydroxide (Milk Of Mag) 30 ml DAILY PRN PO .CONSTIPATION; Start 11/03/18 at 12:00 Albuterol/ Ipratropium (Duoneb) 3 ml Q4H RESP THERAPY PRN HHN SHORTNESS OF BREATH Last administered on 11/06/18at 05:07; Admin Dose 3 ML; Start 11/03/18 at 12:00 Vancomycin HCl (Vanco Iv Per Pharmacy) VANCOMYCIN PER PHARMACY NOTE XX ; Start 11/03/18 at 12:00 Hydralazine HCl (Apresoline) 10 mg Q6H PRN IV ELEVATED BLOOD PRESSURE; Start 11/03/18 at 12:00 Nitroglycerin (Nitroglycerin (Sl Tab) 0.4 Mg) 1 tab Q5M PRN SL ANGINA; Start 11/03/18 at 12:00 Aspirin (Ecotrin) 325 mg DAILY PO Last administered on 11/06/18at 08:48; Admin Dose 325 MG; Start 11/04/18 at 09:00 Ascorbic Acid (Vitamin C) 500 mg DAILY GTB Last administered on 11/06/18at 08:50; Admin Dose 500 MG; Start 11/04/18 at 09:00 Atorvastatin Calcium (Lipitor) 80 mg QHS GTB Last administered on 11/06/18at 20:27; Admin Dose 80 MG; Start 11/03/18 at 21:00 Bisacodyl (Dulcolax Supp) 10 mg DAILY PRN [place] CONSTIPATION; Start 11/03/18 at 12:00 Chlorhexidine Gluconate (Peridex) 15 ml Q12H MM Last administered on 11/07/18 00:50; Admin Dose 15 ML; Start 11/03/18 at 12:00 Clonidine (Catapres) 0.2 mg Q8H PRN GTB SBP ABOVE 160; Start 11/03/18 at 12:00 Valproate Sodium (Depakene Liquid Cup) 500 mg BID GTB Last administered on 11/06/18 20:28; Admin Dose 500 MG; Start 11/03/18 at 21:00 Zinc Sulfate (Zinc Sulfate) 220 mg DAILY GTB Last administered on 11/06/18 08:47; Admin Dose 220 MG; Start 11/04/18 at 09:00 Lactobacillus Acidophilus/ Rhamnosus (Culturelle) 1 cap DAILY PO Last admin istered on 11/06/18 08:48; Admin Dose 1 CAP; Start 11/04/18 at 09:00 Multivitamins/ Minerals (Theragran-M) 1 tab DAILY PO Last administered on 11/06/18 08:50; Admin Dose 1 TAB; Start 11/04/18 at 09:00 Enoxaparin Sodium (Lovenox) 70 mg DAILY SC Last administered on 11/06/18 09:18; Admin Dose 70 MG; Start 11/04/18 at 09:00 Metoprolol Tartrate (Lopressor) 25 mg BID PO Last administered on 11/06/18 20:28; Admin Dose 25 MG; Start 11/03/18 at 21:00 Gabapentin (Neurontin) 600 mg BID GTB Last administered on 11/06/18 20:29; Admin Dose 600 MG; Start 11/04/18 at 12:00 Risperidone (Risperdal) 2 mg DAILY GTB Last administered on 11/06/18 08:48; Admin Dose 2 MG; Start 11/04/18 at 14:00 Mupirocin (Bactroban) 1 applic BID TOP Last administered on 11/06/18 20:29; Admin Dose 1 APPLIC; Start 11/05/18 at 12:00 Quetiapine Fumarate (Seroquel) 12.5 mg Q8 PRN GTB AGITATION Last administered on 11/07/18 04:28; Admin Dose 12.5 MG; Start 11/06/18 at 11:00 Diphenhydramine HCl (Benadryl) 25 mg Q6H PRN IV ITCHING Last administered on 11/07/18at 00:50; Admin Dose 25 MG; Start 11/06/18 at 18:00 Famotidine (Pepcid) 20 mg BID GTB ; Start 11/07/18 at 09:00 Vancomycin HCl 250 ml @ 125 mls/hr Q8H IVPB ; Start 11/07/18 at 09:00 BRANDT RAMÍREZ November 07, 2018 09:25
[2018-11-07] MEDS: ZINC SULFATE 220 MG CAP GTB SCH (10:01)
[2018-11-07] MEDS: MULTIVITAMINS/MINERALS TAB PO SCH (10:01)
[2018-11-07] MEDS: ASCORBIC ACID 500 MG TAB GTB SCH (10:02)
[2018-11-07] MEDS: LACTOBACILLUS RHAMNOSUS CAP PO SCH (10:02)
[2018-11-07] MEDS: ASPIRIN (EC) 325 MG TAB PO SCH (10:02)
[2018-11-07] MEDS: ONDANSETRON 4 MG INJ IV PRN ×2 (10:02→17:46)
[2018-11-07] MEDS: GABAPENTIN 300 MG CAP GTB SCH ×2 (10:02→21:00)
[2018-11-07] MEDS: FAMOTIDINE 20 MG TAB GTB SCH ×2 (10:02→22:19)
[2018-11-07] MEDS: RISPERIDONE 2 MG TAB GTB SCH (10:02)
[2018-11-07] MEDS: HYDROCODONE/APAP (5/325) TAB PO PRN ×2 (10:02→17:46)
[2018-11-07] MEDS: MUPIROCIN 2% 22 GM OINT TOP SCH ×2 (10:03→21:00)
[2018-11-07] MEDS: METOPROLOL 25 MG TAB PO SCH ×2 (10:03→22:19)
[2018-11-07] MEDS: VALPROIC ACID LIQUID CUP 250 MG/5 ML CUP GTB SCH ×2 (10:03→22:17)
[2018-11-07] MEDS: ENOXAPARIN 80 MG/0.8 ML SYG SC SCH (10:05)
[2018-11-07] MEDS: VANCOMYCIN 1 GM 250 ML IVPB SCH ×2 (10:09→17:25)
--- NOTE | 2018-11-07 10:19 | CONS ---
Assessment/Plan Assessment/Plan Hospital Course 43 yo M with multiple comorbidities who presents for evaluation of ams in the context of respiratory sx. 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 for which neurology is consulted. The clinical picture raises concern for a cardioembolic process. Vasculitis is not yet excluded.. Echo (TTE) is unrevealing. LDL 16 P: Await CTA H/N for further characterization Await hypercoag panel Recommend JAKE Cont ASA for secondary stroke prevention; LDL is at goal BP and other medical management per primary [place] as able Limit sedating medications where possible PT/OT/ST when able Will follow clinically, to recommend neurologic studies, as necessary Consultation Date/Type/Reason Admit Date/Time November 03, 2018 at 10:30 Type of Consult Neurology Reason for Consultation multifocal strokes Requesting Provider: BRANDT RAMÍREZ Date/Time of Note DATE: 11/07/18 TIME: 10:19 24 HR Interval Summary Free Text/Dictation Continues acute care. Pt reportedly more awake today, with some episodes of agitation. Exam Vital Signs Vitals Vital Signs Date Temp Pulse Resp B/P (MAP) Pulse Ox O2 O2 Flow FiO2 Time Delivery Rate 11/07/18 30 09:28 11/07/18 Mechanical 09:21 Ventilator 11/07/18 97 09:12 11/07/18 98.7 18 147/88 97 07:21 (107) Intake and Output 11/06/18 11/06/18 11/07/18 1515:00 23:00 07:00 IntakeIntake Total 250 ml 330 ml 700 ml OutputOutput Total 1300 ml 2000 ml BalanceBalance 250 ml -970 ml -1300 ml Exam PE: Gen Appearance: No Apparent Distress HEENT: Trached Cardiovascular: Regular rate Abdomen: Soft Extremities: Dry NE: The patient was awake and alert. Nonverbal d/t track. Able to track and follow simple axial and appendicular commands. Cranial nerve examination was limited by mental status. Pupils were equal and reactive to light. There was no afferent pupillary defect. Funduscopic examination was limited. Face was grossly symmetric, w/ present corneal and cough reflexes. Tone was normal. Muscle bulk was normal. I did not see fasciculations. The patient had spontaneous movement of all extremities. Coordination and gait testing was limited by mental status. Arm and leg reflexes were within normal limits and symmetric. Carlson's sign was absent. Plantar responses were flexor. MOY BENJAMIN NP November 07, 2018 10:19
--- NOTE | 2018-11-07 11:53 | CONS ---
Assessment/Plan Assessment/Plan Hospital Course (Demo Recall) IMPRESSION: 1. Positive troponin with uptrending consistent with non-ST elevation myocardial infarction-Echo EF 50-55 11/03 2. Abnormal electrocardiogram with incomplete right bundle branch block. 3. Tachycardia, mild. 4. Chronic respiratory failure, status post tracheostomy. 5. Dysphagia, status post G-tube. 6. History of subarachnoid hemorrhage. 7. History of ventriculoperitoneal shunt. 8. 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 Recc: -Tele -Continue asa/statin -Continue BB -Continue current lovenox dose eventhough creatnine has improved as patient troponin decreasing and has h/o SAH/INSTRUMENT [employer]ICE shunt -Continue to trend cardiac enzymes which are downtrending -will discuss possible JAKE with neuro -would continue to monitor for occult arrythmia(AF) Consultation Date/Type/Reason Admit Date/Time November 03, 2018 at 10:30 Initial Consult Date 11/04/18 Type of Consult Cardiology Reason for Consultation Nstemi Requesting Provider: BRANDT RAMÍREZ Date/Time of Note DATE: 11/07/18 TIME: 11:50 Exam/Review of Systems Vital Signs Vitals Vital Signs Date Temp Pulse Resp B/P (MAP) Pulse Ox O2 O2 Flow FiO2 Time Delivery Rate 11/07/18 75 135/72 10:59 (93) 11/07/18 32 98 40 09:35 11/07/18 Mechanical 09:21 Ventilator 11/07/18 98.7 07:21 Intake and Output 11/06/18 11/06/18 11/07/18 1515:00 23:00 07:00 IntakeIntake Total 250 ml 330 ml 700 ml OutputOutput Total 1300 ml 2000 ml BalanceBalance 250 ml -970 ml -1300 ml Exam Exam Review of Systems: CONSTITUTIONAL: No fevers, chills. PULMONARY: No sob CARDIOVASCULAR: No chest pain/palpitations GASTROINTESTINAL: No nausea/vomiting. GENITOURINARY: No hematuria/dysuria. MUSCULOSKELETAL: No myagias/arthalgias. PSYCHIATRIC: The patient denies depression. NEUROLOGIC: No weakness Constitutional: alert Psych: no complaints Head: normocephalic Neck: supple, other (trached) Cardiovascular: regular rate and rhythm Gastrointestinal: soft, non-tender Musculoskeletal: muscle tone (normal) Extremities: edema (none) Neurological: confused Labs Result Diagram: 11/07/18 0640 11/07/18 0640 Results 24hrs Laboratory Tests Test 11/06/18 14:34 11/06/18 14:40 11/07/18 00:40 11/07/18 06:40 Erythrocyte 57 H Sedimentation Rate D-Dimer 931.28 H D-Dimer Comment HIV (1&2) Antibody NEGATIVE Troponin I 1.040 *H Vancomycin Level 9.5 L Trough White Blood Count 7.2 Red Blood Count 4.02 L Hemoglobin 12.4 L Hematocrit 36.4 L Mean Corpuscular 90.5 Volume Mean Corpuscular 30.8 Hemoglobin Mean Corpuscular 34.1 Hemoglobin Concent Red Cell 12.0 Distribution Width Platelet Count 247 # Mean Platelet Volume 9.3 Immature 1.700 H Granulocytes % Neutrophils % 56.4 Lymphocytes % 24.9 Monocytes % 12.0 H Eosinophils % 4.3 Basophils % 0.7 Nucleated Red Blood 0.0 Cells % Immature 0.120 H Granulocytes # Neutrophils # 4.0 Lymphocytes # 1.8 Monocytes # 0.9 Eosinophils # 0.3 Basophils # 0.1 Nucleated Red Blood 0.0 Cells # Sodium Level 144 Potassium Level 3.5 Chloride Level 107 Carbon Dioxide Level 31 Anion Gap 6 Blood Urea Nitrogen < 2 L Creatinine 0.57 L Est Glomerular > 60 Filtrat Rate mL/min Glucose Level 93 Calcium Level 8.7 Medications Medications Current Medications Naloxone HCl (Narcan) 1 mg Q2M PRN IV LETHARGY Last administered on 11/03/18at 07:19; Admin Dose 1 MG; Start 11/03/18 at 07:00 IV Flush (NS 3 ml) 3 ml PER PROTOCOL IV ; Start 11/03/18 at 12:00 Ondansetron HCl (Zofran Inj) 4 mg Q6H PRN IV NAUSEA/VOMITING Last administered on 11/07/18at 10:02; Admin Dose 4 MG; Start 11/03/18 at 12:00 Acetaminophen (Tylenol Tab) 650 mg Q6H PRN PO .PAIN 1-3 OR TEMP; Start 11/03/18 at 12:00 Acetaminophen/ Hydrocodone Bitart ([place] (5/325)) 1 tab Q6H PRN PO .MOD PAIN 4- 6 Last administered on 11/07/18at 10:02; Admin Dose 1 TAB; Start 11/03/18 at 12:00 Docusate Sodium (Colace) 100 mg Q12H PRN PO .CONSTIPATION; Start 11/03/18 at 12:00 Magnesium Hydroxide (Milk Of Mag) 30 ml DAILY PRN PO .CONSTIPATION; Start 11/03/18 at 12:00 Albuterol/ Ipratropium (Duoneb) 3 ml Q4H RESP THERAPY PRN HHN SHORTNESS OF BREATH Last administered on 11/06/18at 05:07; Admin Dose 3 ML; Start 11/03/18 at 12:00 Vancomycin HCl (Vanco Iv Per Pharmacy) VANCOMYCIN PER PHARMACY NOTE XX ; Start 11/03/18 at 12:00 Hydralazine HCl (Apresoline) 10 mg Q6H PRN IV ELEVATED BLOOD PRESSURE; Start 11/03/18 at 12:00 Nitroglycerin (Nitroglycerin (Sl Tab) 0.4 Mg) 1 tab Q5M PRN SL ANGINA; Start 11/03/18 at 12:00 Aspirin (Ecotrin) 325 mg DAILY PO Last administered on 11/07/18at 10:02; Admin Dose 325 MG; Start 11/04/18 at 09:00 Ascorbic Acid (Vitamin C) 500 mg DAILY GTB Last administered on 11/07/18 10:02; Admin Dose 500 MG; Start 11/04/18 at 09:00 Atorvastatin Calcium (Lipitor) 80 mg QHS GTB Last administered on 11/06/18at 20:27; Admin Dose 80 MG; Start 11/03/18 at 21:00 Bisacodyl (Dulcolax Supp) 10 mg DAILY PRN [place] CONSTIPATION; Start 11/03/18 at 12:00 Chlorhexidine Gluconate (Peridex) 15 ml Q12H MM Last administered on 11/07/18at 10:03; Admin Dose 15 ML; Start 11/03/18 at 12:00 Clonidine (Catapres) 0.2 mg Q8H PRN GTB SBP ABOVE 160; Start 11/03/18 at 12:00 Valproate Sodium (Depakene Liquid Cup) 500 mg BID GTB Last administered on 11/07/18 10:03; Admin Dose 500 MG; Start 11/03/18 at 21:00 Zinc Sulfate (Zinc Sulfate) 220 mg DAILY GTB Last administered on 11/07/18at 10:01; Admin Dose 220 MG; Start 11/04/18 at 09:00 Lactobacillus Acidophilus/ Rhamnosus (Culturelle) 1 cap DAILY PO Last administered on 11/07/18 10:02; Admin Dose 1 CAP; Start 11/04/18 at 09:00 Multivitamins/ Minerals (Theragran-M) 1 tab DAILY PO Last administered on 11/07/18 10:01; Admin Dose 1 TAB; Start 11/04/18 at 09:00 Enoxaparin Sodium (Lovenox) 70 mg DAILY SC Last administered on 11/07/18 10:05; Admin Dose 70 MG; Start 11/04/18 at 09:00 Metoprolol Tartrate (Lopressor) 25 mg BID PO Last administered on 11/07/18 10:03; Admin Dose 25 MG; Start 11/03/18 at 21:00 Gabapentin (Neurontin) 600 mg BID GTB Last administered on 11/07/18 10:02; Admin Dose 600 MG; Start 11/04/18 at 12:00 Risperidone (Risperdal) 2 mg DAILY GTB Last administered on 11/07/18 10:02; Admin Dose 2 MG; Start 11/04/18 at 14:00 Mupirocin (Bactroban) 1 applic BID TOP Last administered on 11/07/18 10:03; Admin Dose 1 APPLIC; Start 11/05/18 at 12:00 Quetiapine Fumarate (Seroquel) 12.5 mg Q8 PRN GTB AGITATION Last administered on 11/07/18 04:28; Admin Dose 12.5 MG; Start 11/06/18 at 11:00 Diphenhydramine HCl (Benadryl) 25 mg Q6H PRN IV ITCHING Last administered on 11/07/18 10:02; Admin Dose 25 MG; Start 11/06/18 at 18:00 Famotidine (Pepcid) 20 mg BID GTB Last administered on 11/07/18 10:02; Admin Dose 20 MG; Start 11/07/18 at 09:00 Vancomycin HCl 250 ml @ 125 mls/hr Q8H IVPB Last administered on 11/07/18 10:09; Admin Dose 125 MLS/HR; Start 11/07/18 at 09:00 NORMAN KESSLER November 07, 2018 11:53
[2018-11-07] MEDS ORDERED: LORAZEPAM 2 MG INJ IV ONE (13:30)
[2018-11-07] MEDS ORDERED: IOHEXOL 100 ML ONE (14:07)
[2018-11-07] MEDS ORDERED: SOD CHLORIDE 0.9% 100 ML ONE (14:07)
[2018-11-07] MEDS ORDERED: IOHEXOL 300MG/ML 150 ML BTL ONE (14:07)
[2018-11-07] MEDS: MAGNESIUM HYDROXIDE 30ML CUP PO PRN (17:47)
[2018-11-07] MEDS: ATORVASTATIN 40 MG TAB GTB SCH (22:18)
[2018-11-08] VITALS (29 sets, daily range): BP systolic 100–165; BP diastolic 59–92; PULSE 50–102; RESP 14–35
[2018-11-08] MEDS: CHLORHEXIDINE GLUCONATE 15 ML UD CUP MM SCH ×2 (04:01→12:21)
[2018-11-08] MEDS: VANCOMYCIN 1 GM 250 ML IVPB SCH ×3 (04:02→17:35)
[2018-11-08] MEDS: DIPHENHYDRAMINE 50 MG INJ IV PRN ×3 (04:57→19:55)
--- NOTE | 2018-11-08 08:19 | CONS ---
Consult Date/Type/Reason Admit Date/Time November 03, 2018 at 10:30 Initial Consult Date Requesting Provider: BRANDT RAMÍREZ Date/Time of Note DATE: 11/08/18 TIME: 08:16 Subjective NO acute events - pt agitated - artifact on tele, but appears to be in sinus . ROS: No fever, no chills, no nausea, no vomiting, no diarrhea/constipation + agitation per nurse , in restraints now No chest pain, no PND, no orthopnea No dizziness, blurred vision No thirst, no heat or cold intolerance Objective Vitals Vital Signs Date Temp Pulse Resp B/P (MAP) Pulse Ox O2 O2 Flow FiO2 Time Delivery Rate 11/08/18 98.1 55 20 165/92 92 07:35 (116) 11/08/18 30 05:25 11/07/18 Mechanical 18:37 Ventilator Intake and Output 11/07/18 11/07/18 11/08/18 1515:00 23:00 07:00 IntakeIntake Total 250 ml 1200 ml 800 ml OutputOutput Total 4800 ml 500 ml BalanceBalance 250 ml -3600 ml 300 ml Exam General: WN/WD/NAD, AOx 0 HEENT: Unicetric/atraumatic/EOMI (does not follow commands) NECK: trach Lymph: no lymphadenopathy HEART: tachy, regular with no S3, II/ systolic murmur at apex LUNGS: Coarse sounds ABD: soft, NT, ND, +BS, PEG : Intact, [place] - straw colored urine Neuro: non focal SKIN: chronic changes EXT: no edema Results/Medications Result Diagram: 11/08/18 0524 11/08/1824 Results 24 hrs Laboratory Tests Test 11/07/18 12:06 11/08/18 05:24 Troponin I 0.557 *H White Blood Count 7.6 Red Blood Count 3.89 L Hemoglobin 12.0 L Hematocrit 35.9 L Mean Corpuscular Volume 92.3 Mean Corpuscular Hemoglobin 30.8 Mean Corpuscular Hemoglobin Concent 33.4 Red Cell Distribution Width 12.4 Platelet Count 245 Mean Platelet Volume 9.3 Immature Granulocytes % 2.100 H Neutrophils % 47.6 Lymphocytes % 30.1 Monocytes % 12.0 H Eosinophils % 7.4 H Basophils % 0.8 Nucleated Red Blood Cells % 0.0 Immature Granulocytes # 0.160 H Neutrophils # 3.6 Lymphocytes # 2.3 Monocytes # 0.9 Eosinophils # 0.6 H Basophils # 0.1 Nucleated Red Blood Cells # 0.0 Sodium Level 145 H Potassium Level 3.4 L Chloride Level 106 Carbon Dioxide Level 32 H Anion Gap 7 Blood Urea Nitrogen 5 L Creatinine 0.65 Est Glomerular Filtrat Rate mL/min > 60 Glucose Level 103 Calcium Level 8.4 Home Meds Reported Medications Zinc Sulfate* (Zinc Sulfate*) 220 Mg Tablet, 220 MG GTB DAILY, TAB STOP TAKING 11/21/18 11/03/18 Ascorbic Acid* (Vitamin C*) 500 Mg Capsule.sa, 500 MG GTB DAILY, CAP 11/03/18 Valproic Acid* (Valproic Acid* Liq) 250 Mg/5 Ml Syrup, 10 ML GTB BID, ML 11/03/18 Cran/Vitc/Mannose/Inulin/Brom (Uti-Stat Liquid) 3,875 Mg/30 Ml Liquid, 30 ML GTB DAILY 11/03/18 Acetaminophen* (Acetaminophen*) 500 MG Extra Strength Tablet, 1000 MG GTB Q4H PRN for PAIN -11/21, TAB 11/03/18 Acetaminophen* (Tylenol*) 325 Mg Tablet, 650 MG GTB BID PRN for PAIN AND OR ELEVATED TEMP, TAB 11/03/18 Acetaminophen* (Tylenol*) 325 Mg Tablet, 650 MG GTB Q4H PRN for MILD PAIN LEVEL 1-3, TAB AND FEVER 101F,STOP DATE 12/21/18 11/03/18 Acetaminophen* (Tylenol*) 325 Mg Tablet, 650 MG GTB NEEDED PRN for TRACH TUBE CHANGE, TAB 11/03/18 Risperidone* (Risperdal*) 1 Mg Tablet, 2 MG GTB DAILY, TAB STOP DATE 11/05/18 11/03/18 Amino Acids/Protein Hydrolys (PRO-STAT LIQUID) 30 Ml Liquid.pkt, 30 ML GTB BID 11/03/18 Hydrocodone/Acetaminophen ([place] 5-325 Tablet) 1 Each Tablet, 1 EACH GTB Q6H PRN for PAIN -02/21, TAB 11/03/18 Multivitamin with Minerals (Multivitamins with Minerals) 1 Each Tablet, 1 EACH GTB DAILY, TAB 11/03/18 Magnesium Hydroxide* (Milk Of Magnesia*) 400 Mg/5 Ml Oral.susp, 30 ML GTB NEEDED, ML 11/03/18 Heparin Sodium,Porcine/Pf (HEPARIN SOD 5,000 UNIT/ 0.5 ML) 5,000 Unit/0.5 Ml Vial, 5000 UNIT IJ Q12H, VIAL 11/03/18 Gabapentin* (Gabapentin*) 300 Mg Capsule, 600 MG GTB BID, #180 CAP 11/03/18 Mineral Oil* (Fleet* Mineral Oil Enema) Unknown Strength Oil, 1 APPLIC [place] NEEDED PRN for CONSTIPATION, ENEMA 11/03/18 Bisacodyl (Dulcolax) 10 Mg Supp.rect, 10 MG RC PRN, SUPP.RECT 11/03/18 Docusate Sodium* (Colace*) 100 Mg Capsule, 200 MG GTB QHS, #60 CAP 11/03/18 Clonidine Hcl* (Clonidine Hcl*) 0.1 Mg Tab, 0.2 MG GTB Q8H PRN for HTN, TAB HOLD FOR SBPBELOW 110 OR HR BELOW 60 11/03/18 Chlorhexidine Gluconate (Periogard) 473 Ml Mouthwash, 15 ML MM Q12H, BOTTLE 11/03/18 Atorvastatin* (Atorvastatin*) 40 Mg Tablet, 80 MG GTB QHS, #30 TAB 11/03/18 Albuterol Sulfate* (Albuterol Sulfate* Neb) 0.083%-3 Ml Neb, 2.5 MG NEB Q6H PRN for WHEEZING AND SOB, #30 VIAL AND NEEDED Q3H 11/03/18 Lactobacillus Acidophilus/Pect (Acidophilus-Pectin Capsule) 1 Each Capsule, 1 EACH GTB DAILY, CAP 11/03/18 Discontinued Reported Medications Pantoprazole Sodium (Protonix) 40 Mg Granpkt.dr, 40 MG GTB DAILY 11/03/18 Lactobacillus Acidophilus* (Lactinex*) 1 Tab Chew, 1 TAB GTB DAILY, TAB 11/03/18 Medications Current Medications Naloxone HCl (Narcan) 1 mg Q2M PRN IV LETHARGY Last administered on 11/03/18at 07:19; Admin Dose 1 MG; Start 11/03/18 at 07:00 IV Flush (NS 3 ml) 3 ml PER PROTOCOL IV ; Start 11/03/18 at 12:00 Ondansetron HCl (Zofran Inj) 4 mg Q6H PRN IV NAUSEA/VOMITING Last administered on 11/07/18 17:46; Admin Dose 4 MG; Start 11/03/18 at 12:00 Acetaminophen (Tylenol Tab) 650 mg Q6H PRN PO .PAIN 1-3 OR TEMP; Start 11/03/18 at 12:00 Acetaminophen/ Hydrocodone Bitart ([place] (5/325)) 1 tab Q6H PRN PO .MOD PAIN 4- 6 Last administered on 11/07/18 17:46; Admin Dose 1 TAB; Start 11/03/18 at 12:00 Docusate Sodium (Colace) 100 mg Q12H PRN PO .CONSTIPATION; Start 11/03/18 at 12:00 Magnesium Hydroxide (Milk Of Mag) 30 ml DAILY PRN PO .CONSTIPATION Last administered on 11/07/18 17:47; Admin Dose 30 ML; Start 11/03/18 at 12:00 Albuterol/ Ipratropium (Duoneb) 3 ml Q4H RESP THERAPY PRN HHN SHORTNESS OF BREATH Last administered on 11/06/18at 05:07; Admin Dose 3 ML; Start 11/03/18 at 12:00 Vancomycin HCl (Vanco Iv Per Pharmacy) VANCOMYCIN PER PHARMACY NOTE XX ; Start 11/03/18 at 12:00 Hydralazine HCl (Apresoline) 10 mg Q6H PRN IV ELEVATED BLOOD PRESSURE; Start 11/03/18 at 12:00 Nitroglycerin (Nitroglycerin (Sl Tab) 0.4 Mg) 1 tab Q5M PRN SL ANGINA; Start 11/03/18 at 12:00 Aspirin (Ecotrin) 325 mg DAILY PO Last administered on 11/07/18 10:02; Admin Dose 325 MG; Start 11/04/18 at 09:00 Ascorbic Acid (Vitamin C) 500 mg DAILY GTB Last administered on 11/07/18at 10: 02; Admin Dose 500 MG; Start 11/04/18 at 09:00 Atorvastatin Calcium (Lipitor) 80 mg QHS GTB Last administered on 11/07/18at 22:18; Admin Dose 80 MG; Start 11/03/18 at 21:00 Bisacodyl (Dulcolax Supp) 10 mg DAILY PRN [place] CONSTIPATION; Start 11/03/18 at 12:00 Chlorhexidine Gluconate (Peridex) 15 ml Q12H MM Last administered on 11/08/18 04:01; Admin Dose 15 ML; Start 11/03/18 at 12:00 Clonidine (Catapres) 0.2 mg Q8H PRN GTB SBP ABOVE 160; Start 11/03/18 at 12:00 Valproate Sodium (Depakene Liquid Cup) 500 mg BID GTB Last administered on 11/07/18 22:17; Admin Dose 500 MG; Start 11/03/18 at 21:00 Zinc Sulfate (Zinc Sulfate) 220 mg DAILY GTB Last administered on 11/07/18 10:01; Admin Dose 220 MG; Start 11/04/18 at 09:00 Lactobacillus Acidophilus/ Rhamnosus (Culturelle) 1 cap DAILY PO Last administered on 11/07/18 10:02; Admin Dose 1 CAP; Start 11/04/18 at 09:00 Multivitamins/ Minerals (Theragran-M) 1 tab DAILY PO Last administered on 11/07/18 10:01; Admin Dose 1 TAB; Start 11/04/18 at 09:00 Enoxaparin Sodium (Lovenox) 70 mg DAILY SC Last administered on 11/07/18 10:05; Admin Dose 70 MG; Start 11/04/18 at 09:00 Metoprolol Tartrate (Lopressor) 25 mg BID PO Last administered on 11/07/18 22:19; Admin Dose 25 MG; Start 11/03/18 at 21:00 Gabapentin (Neurontin) 600 mg BID GTB Last administered on 11/07/18 21:00; Admin Dose 600 MG; Start 11/04/18 at 12:00 Risperidone (Risperdal) 2 mg DAILY GTB Last administered on 11/07/18 10:02; Admin Dose 2 MG; Start 11/04/18 at 14:00 Mupirocin (Bactroban) 1 applic BID TOP Last administered on 11/07/18 21:00; Admin Dose 1 APPLIC; Start 11/05/18 at 12:00 Quetiapine Fumarate (Seroquel) 12.5 mg Q8 PRN GTB AGITATION Last administered on 11/07/18 22:28; Admin Dose 12.5 MG; Start 11/06/18 at 11:00 Diphenhydramine HCl (Benadryl) 25 mg Q6H PRN IV ITCHING Last administered on 11/08/18at 04:57; Admin Dose 0.25 MG; Start 11/06/18 at 18:00 Famotidine (Pepcid) 20 mg BID GTB Last administered on 11/07/18at 22:19; Admin Dose 20 MG; Start 11/07/18 at 09:00 Vancomycin HCl 250 ml @ 125 mls/hr Q8H IVPB Last administered on 11/08/18at 04:02; Admin Dose 125 MLS/HR; Start 11/07/18 at 09:00 Miscellaneous Information (*Rx Drug Level Order Reminder*) VANCO TROUGH @ 1,600 1600 ONCE XX ; Start 11/08/18 at 16:00; Stop 11/08/18 at 16:01 Assessment/Plan Hospital Course (Demo Recall) 1. Positive troponin with uptrending consistent with non-ST elevation myocardial infarction-Echo EF 50-55 11/03 - no obvious CP - will monitor clinically now,. 2. Abnormal electrocardiogram with incomplete right bundle branch block- now in sinus on tele. 3. Tachycardia, mild - witha gition. 4. Chronic respiratory failure, status post tracheostomy. Con't resp Rx. 5. Dysphagia, status post G-tube. 6. History of subarachnoid hemorrhage - defer to neuro. 7. History of ventriculoperitoneal shunt. 8. 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 fib over 24 hrs. VICENTE XIE MD November 08, 2018 08:19
[2018-11-08] MEDS ORDERED: POTASSIUM CHLORIDE 20 MEQ POWDER FOR ORAL SOLN GTB ONE ×2 (08:30→15:30)
[2018-11-08] MEDS: MULTIVITAMINS/MINERALS TAB PO SCH (08:35)
[2018-11-08] MEDS: RISPERIDONE 2 MG TAB GTB SCH (08:35)
[2018-11-08] MEDS: FAMOTIDINE 20 MG TAB GTB SCH ×2 (08:35→20:20)
[2018-11-08] MEDS: ZINC SULFATE 220 MG CAP GTB SCH (08:36)
[2018-11-08] MEDS: GABAPENTIN 300 MG CAP GTB SCH ×2 (08:36→20:19)
[2018-11-08] MEDS: ASCORBIC ACID 500 MG TAB GTB SCH (08:36)
[2018-11-08] MEDS: VALPROIC ACID LIQUID CUP 250 MG/5 ML CUP GTB SCH ×2 (08:36→20:19)
[2018-11-08] MEDS: ASPIRIN (EC) 325 MG TAB PO SCH (08:36)
[2018-11-08] MEDS: LACTOBACILLUS RHAMNOSUS CAP PO SCH (08:36)
[2018-11-08] MEDS: MUPIROCIN 2% 22 GM OINT TOP SCH ×2 (08:37→20:21)
[2018-11-08] MEDS: HYDROCODONE/APAP (5/325) TAB PO PRN (08:38)
[2018-11-08] MEDS: ENOXAPARIN 80 MG/0.8 ML SYG SC SCH (08:55)
[2018-11-08] MEDS: METOPROLOL 25 MG TAB PO SCH ×2 (08:56→20:20)
--- NOTE | 2018-11-08 09:05 | PN ---
DATE: 11/08/2018 SUBJECTIVE: The patient is stable. No events overnight. OBJECTIVE: VITAL SIGNS: Blood pressure is 165/92, respirations 20, pulse 65, temperature 98.1. HEENT: Head is normocephalic. NECK: Supple. HEART: Regular rate. LUNGS: Show diminished breath sounds at the base. ABDOMEN: Soft, nontender to palpation without rebound or guarding. EXTREMITIES: Negative for clubbing, cyanosis, no edema. DERMATOLOGIC: No rashes. MUSCULOSKELETAL: No joint effusion. NEUROLOGIC: No change in exam. MEDICATIONS: Reviewed. LABORATORY DATA: Has been reviewed. ASSESSMENT AND PLAN: 1. Nonoliguric acute kidney injury with unknown baseline creatinine. Etiology of acute kidney injur y is secondary to hemodynamics, sepsis. Renal function is stable. Continue current treatment plan, supportive care, renally dose all meds. 2. Hypokalemia. Will replete with potassium chloride. 3. Hypernatremia. Will increase free water flushes 200 mL q.4 hours. 4. Anemia. Monitor hemoglobin and hematocrit levels. 5. Mineral bone disorder. Monitor calcium and phosphorus level. 6. Ventilator-dependent respiratory failure. Vent settings have been reviewed. Continue to monitor . 7. Acute encephalopathy. Etiology is toxic metabolic. 8. Hypertension. Continue current blood pressure regimen. 9. Dyslipidemia. Continue statin therapy. 10. Sepsis bacteremia. The patient is completing antibiotic course. 11. Non-ST elevation myocardial infarction. Continue medical management. Follow up with cardiology . 12. Arrhythmia. Continue to monitor. 13. History of ventriculoperitoneal shunt. Dictated By: RENEE DUONG/PRISCILLA Conf#: [id number] DID#: [id number] CC: BRANDT RAMÍREZ;*EndCC*
--- NOTE | 2018-11-08 13:11 | CONS ---
Assessment/Plan Assessment/Plan Hospital Course 43 yo M with multiple comorbidities who presents for evaluation of ams in the context of respiratory sx. 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 for which neurology is consulted. The clinical picture raises concern for a cardioembolic process. Vasculitis is not yet excluded.. Echo (TTE) is unrevealing. CTA H/N was only notable for stable L MARNI aneurysm coil LDL 16 P: Await hypercoag panel Recommend JAKE Cont ASA for secondary stroke prevention; LDL is at goal BP and other medical management per primary [place] as able Limit sedating medications where possible PT/OT/ST when able Will follow clinically, to recommend neurologic studies, as necessary Consultation Date/Type/Reason Admit Date/Time November 03, 2018 at 10:30 Type of Consult Neurology Reason for Consultation multifocal strokes Requesting Provider: BRANDT RAMÍREZ Date/Time of Note DATE: 11/08/18 TIME: 13:11 24 HR Interval Summary Free Text/Dictation Continues acute care. S/p CTAs Exam Vital Signs Vitals Vital Signs Date Temp Pulse Resp B/P (MAP) Pulse Ox O2 O2 Flow FiO2 Time Delivery Rate 11/08/18 52 12:44 11/08/18 98.0 20 105/71 96 12:00 (82) 11/08/18 30 05:25 11/07/18 Mechanical 18:37 Ventilator Intake and Output 11/07/18 11/07/18 11/08/18 1515:00 23:00 07:00 IntakeIntake Total 250 ml 1200 ml 800 ml OutputOutput Total 4800 ml 500 ml BalanceBalance 250 ml -3600 ml 300 ml Exam PE: Gen Appearance: No Apparent Distress HEENT: Trached Cardiovascular: Regular rate Abdomen: Soft Extremities: Dry NE: The patient was awake and alert. Nonverbal d/t trach. Able to track and follow simple axial and appendicular commands. Cranial nerve examination was limited by mental status. Pupils were equal and reactive to light. There was no afferent pupillary defect. Funduscopic examination was limited. Face was grossly symmetric, w/ present corneal and cough reflexes. Tone was normal. Muscle bulk was normal. I did not see fasciculations. The patient had spontaneous movement of all extremities. Coordination and gait testing was limited by mental status. Arm and leg reflexes were within normal limits and symmetric. Carlson's sign was absent. Plantar responses were flexor. MOY BENJAMIN NP November 08, 2018 13:11
--- NOTE | 2018-11-08 16:13 | PN ---
Date/Time of Note Date/Time of Note DATE: 11/08/18 TIME: 16:11 Assessment/Plan VTE Prophylaxis Risk score (from Nsg)>0 risk: 8 SCD applied (from Nsg): Yes Pharmacological prophylaxis: LMWH Lines/Catheters IV Catheter Type (from Nrsg): Saline Lock Urinary Cath still in place: Yes Reason Cath still needed: other (indicate) (hematuria, ly trauma) Assessment/Plan Assessment/Plan 43-year-old male with history of subarachnoid hemorrhage with subsequent CARVER [employer] shunt, tracheostomy placement, G-tube placement, hypertension, high cholesterol, depression, gastroesophageal reflux disease, who comes in from outside facility with signs of pneumonia, elevated troponins, slight lactic acidosis and renal insufficiency. # Apnea and altered mental status - again likely secondary to positive brain MRI findings of infarct, there could be also component contributing from patient's pneumonia and possible non-ST elevation myocardial infarction. - Again for his pneumonia, continue broad-spectrum antibiotics, follow-up culture results -Per neurology team, hold off on benzos, continue Seroquel as needed, follow- up results of CTA head neck. Also follow-up hypercoagulable work-up panel, continue aspirin. -Per discussed with neurology team, they are requesting JAKE to be performed given the MRI brain findings. Will discuss with cardiology team. -Continue Tylenol p.r.n. pain and fevers. -Follow-up further recommendations from speech evmarita #Hematua - Hematuria noted 11/08 - Patient was agitated, may have pulled at his Ly. Now on restraints. - Will closely monitor for a few days. If Ly trauma, expect it to slowly clear up. If it worsens will call urology. # Elevated troponins - again signs of non-ST elevation myocardial infarction. - continue Lovenox 1 mg/kg daily per cardiology recommendations, continue to trend his troponins. -Continue high dose aspirin and Lipitor, Morphine p.r.n., nitroglycerin p.r.n. # Renal insufficiency-resolving now, creatinine is presently normal -Monitor, follow-up recommendations from renal consult. - Continue IV fluids. # History of hypertension. Again, blood pressure is presently stable. - Continue to monitor for now. He is on hydralazine p.r.n. # History of high cholesterol. - Continue Lipitor. # Tracheostomy placement stable - Continue oxygen supplementation via trach via mechanical ventilation. - Consider pulmonary consult if worsens # Deep venous thrombosis prophylaxis- Lovenox. # History of gastroesophageal reflux disease- H2 kendall. Result Diagram: 11/08/18 0524 11/08/1824 Subjective 24 Hr Interval Summary Free Text/Dictation No acute overnight events. Patient still pulling at lines and trying to get out of bed even though he's trached. Continue restraints. Ly has bloody urine. Exam/Review of Systems Exam Vitals Vital Signs Date Temp Pulse Resp B/P (MAP) Pulse Ox O2 O2 Flow FiO2 Time Delivery Rate 11/08/18 98.2 68 20 119/86 100 14:07 (97) 11/08/18 30 05:25 11/07/18 Mechanical 18:37 Ventilator Intake and Output 11/07/18 11/07/18 11/08/18 1515:00 23:00 07:00 IntakeIntake Total 250 ml 1200 ml 800 ml OutputOutput Total 4800 ml 500 ml BalanceBalance 250 ml -3600 ml 300 ml Exam GENERAL: lying in bed, opens eyes HEENT: Pupils are equal, round, reactive to light. Extraocular muscles are intact. NECK: Supple. Tracheostomy site looks clean, dry and intact. RESPIRATORY: Slightly distant breath sounds bilaterally. CARDIOVASCULAR: S1, S2 heard. No murmurs, rubs or gallops. ABDOMEN: G-tube in place. Normal bowel sounds. No rebound or guarding. MUSCULOSKELETAL: No lower extremity edema bilaterally. Results Results 24hrs Laboratory Tests Test 11/08/18 05:24 White Blood Count 7.6 Red Blood Count 3.89 L Hemoglobin 12.0 L Hematocrit 35.9 L Mean Corpuscular Volume 92.3 Mean Corpuscular Hemoglobin 30.8 Mean Corpuscular Hemoglobin Concent 33.4 Red Cell Distribution Width 12.4 Platelet Count 245 Mean Platelet Volume 9.3 Immature Granulocytes % 2.100 H Neutrophils % 47.6 Lymphocytes % 30.1 Monocytes % 12.0 H Eosinophils % 7.4 H Basophils % 0.8 Nucleated Red Blood Cells % 0.0 Immature Granulocytes # 0.160 H Neutrophils # 3.6 Lymphocytes # 2.3 Monocytes # 0.9 Eosinophils # 0.6 H Basophils # 0.1 Nucleated Red Blood Cells # 0.0 Sodium Level 145 H Potassium Level 3.4 L Chloride Level 106 Carbon Dioxide Level 32 H Anion Gap 7 Blood Urea Nitrogen 5 L Creatinine 0.65 Est Glomerular Filtrat Rate mL/min > 60 Glucose Level 103 Calcium Level 8.4 Medications Medication Current Medications Naloxone HCl (Narcan) 1 mg Q2M PRN IV LETHARGY Last administered on 11/03/18 07:19; Admin Dose 1 MG; Start 11/03/18 at 07:00 IV Flush (NS 3 ml) 3 ml PER PROTOCOL IV ; Start 11/03/18 at 12:00 Ondansetron HCl (Zofran Inj) 4 mg Q6H PRN IV NAUSEA/VOMITING Last administered on 11/07/18at 17:46; Admin Dose 4 MG; Start 11/03/18 at 12:00 Acetaminophen (Tylenol Tab) 650 mg Q6H PRN PO .PAIN 1-3 OR TEMP; Start 11/03/18 at 12:00 Acetaminophen/ Hydrocodone Bitart ([place] (5/325)) 1 tab Q6H PRN PO .MOD PAIN 4- 6 Last administered on 11/08/18at 08:38; Admin Dose 1 TAB; Start 11/03/18 at 12:00 Docusate Sodium (Colace) 100 mg Q12H PRN PO .CONSTIPATION; Start 11/03/18 at 12:00 Magnesium Hydroxide (Milk Of Mag) 30 ml DAILY PRN PO .CONSTIPATION Last administered on 11/07/18at 17:47; Admin Dose 30 ML; Start 11/03/18 at 12:00 Albuterol/ Ipratropium (Duoneb) 3 ml Q4H RESP THERAPY PRN HHN SHORTNESS OF BREATH Last administered on 11/06/18at 05:07; Admin Dose 3 ML; Start 11/03/18 at 12:00 Vancomycin HCl (Vanco Iv Per Pharmacy) VANCOMYCIN PER PHARMACY NOTE XX ; Start 11/03/18 at 12:00 Hydralazine HCl (Apresoline) 10 mg Q6H PRN IV ELEVATED BLOOD PRESSURE; Start 11/03/18 at 12:00 Nitroglycerin (Nitroglycerin (Sl Tab) 0.4 Mg) 1 tab Q5M PRN SL ANGINA; Start 11/03/18 at 12:00 Aspirin (Ecotrin) 325 mg DAILY PO Last administered on 11/08/18 08:36; Admin Dose 325 MG; Start 11/04/18 at 09:00 Ascorbic Acid (Vitamin C) 500 mg DAILY GTB Last administered on 11/08/18 08:36; Admin Dose 500 MG; Start 11/04/18 at 09:00 Atorvastatin Calcium (Lipitor) 80 mg QHS GTB Last administered on 11/07/18 22:18; Admin Dose 80 MG; Start 11/03/18 at 21:00 Bisacodyl (Dulcolax Supp) 10 mg DAILY PRN [place] CONSTIPATION; Start 11/03/18 at 12:00 Chlorhexidine Gluconate (Peridex) 15 ml Q12H MM Last administered on 11/08/18 12:21; Admin Dose 15 ML; Start 11/03/18 at 12:00 Clonidine (Catapres) 0.2 mg Q8H PRN GTB SBP ABOVE 160; Start 11/03/18 at 12:00 Valproate Sodium (Depakene Liquid Cup) 500 mg BID GTB Last administered on 11/08/18 08:36; Admin Dose 500 MG; Start 11/03/18 at 21:00 Zinc Sulfate (Zinc Sulfate) 220 mg DAILY GTB Last administered on 11/08/18 08:36; Admin Dose 220 MG; Start 11/04/18 at 09:00 Lactobacillus Acidophilus/ Rhamnosus (Culturelle) 1 cap DAILY PO Last administered on 11/08/18 08:36; Admin Dose 1 CAP; Start 11/04/18 at 09:00 Multivitamins/ Minerals (Theragran-M) 1 tab DAILY PO Last administered on 11/08/18 08:35; Admin Dose 1 TAB; Start 11/04/18 at 09:00 Enoxaparin Sodium (Lovenox) 70 mg DAILY SC Last administered on 11/08/18 08:55; Admin Dose 70 MG; Start 11/04/18 at 09:00 Metoprolol Tartrate (Lopressor) 25 mg BID PO Last administered on 11/08/18 08:56; Admin Dose 25 MG; Start 11/03/18 at 21:00 Gabapentin (Neurontin) 600 mg BID GTB Last administered on 11/08/18 08:36; Admin Dose 600 MG; Start 11/04/18 at 12:00 Risperidone (Risperdal) 2 mg DAILY GTB Last administered on 11/08/18 08:35; Admin Dose 2 MG; Start 11/04/18 at 14:00 Mupirocin (Bactroban) 1 applic BID TOP Last administered on 11/08/18 08:37; Admin Dose 1 APPLIC; Start 11/05/18 at 12:00 Quetiapine Fumarate (Seroquel) 12.5 mg Q8 PRN GTB AGITATION Last administered on 11/07/18at 22:28; Admin Dose 12.5 MG; Start 11/06/18 at 11:00 Diphenhydramine HCl (Benadryl) 25 mg Q6H PRN IV ITCHING Last administered on 11/08/18 14:27; Admin Dose 25 MG; Start 11/06/18 at 18:00 Famotidine (Pepcid) 20 mg BID GTB Last administered on 11/08/18 08:35; Admin Dose 20 MG; Start 11/07/18 at 09:00 Vancomycin HCl 250 ml @ 125 mls/hr Q8H IVPB Last administered on 11/08/18 08:37; Admin Dose 125 MLS/HR; Start 11/07/18 at 09:00 NORMAN LEAL MD November 08, 2018 16:13
[2018-11-08] MEDS ORDERED: LORAZEPAM 2 MG INJ IV ONE (20:00)
[2018-11-08] MEDS: ATORVASTATIN 40 MG TAB GTB SCH (20:19)
[2018-11-09] VITALS (30 sets, daily range): BP systolic 100–171; BP diastolic 67–99; PULSE 45–93; RESP 14–25
[2018-11-09] MEDS: HYDROCODONE/APAP (5/325) TAB PO PRN (00:29)
[2018-11-09] MEDS: VANCOMYCIN 1 GM 250 ML IVPB SCH ×3 (00:31→16:34)
[2018-11-09] MEDS: CHLORHEXIDINE GLUCONATE 15 ML UD CUP MM SCH ×2 (00:32→12:30)
[2018-11-09] MEDS: QUETIAPINE 25 MG TAB GTB PRN ×2 (01:50→23:15)
[2018-11-09] MEDS: DIPHENHYDRAMINE 50 MG INJ IV PRN (06:35)
[2018-11-09] MEDS ORDERED: HALOPERIDOL 5 MG INJ IM ONE (07:00)
[2018-11-09] MEDS ORDERED: LORAZEPAM 2 MG INJ IV ONE (07:00)
[2018-11-09] MEDS: GABAPENTIN 300 MG CAP GTB SCH ×2 (09:06→23:14)
[2018-11-09] MEDS: VALPROIC ACID LIQUID CUP 250 MG/5 ML CUP GTB SCH ×2 (09:06→23:12)
[2018-11-09] MEDS: ASCORBIC ACID 500 MG TAB GTB SCH (09:07)
[2018-11-09] MEDS: MULTIVITAMINS/MINERALS TAB PO SCH (09:07)
[2018-11-09] MEDS: ZINC SULFATE 220 MG CAP GTB SCH (09:07)
[2018-11-09] MEDS: METOPROLOL 25 MG TAB PO SCH ×2 (09:07→21:00)
[2018-11-09] MEDS: LACTOBACILLUS RHAMNOSUS CAP PO SCH (09:07)
[2018-11-09] MEDS: FAMOTIDINE 20 MG TAB GTB SCH ×2 (09:07→21:00)
[2018-11-09] MEDS: RISPERIDONE 2 MG TAB GTB SCH (09:07)
[2018-11-09] MEDS: ASPIRIN (EC) 325 MG TAB PO SCH (09:08)
[2018-11-09] MEDS: MUPIROCIN 2% 22 GM OINT TOP SCH ×2 (09:09→21:00)
[2018-11-09] MEDS: ENOXAPARIN 80 MG/0.8 ML SYG SC SCH (09:28)
--- NOTE | 2018-11-09 09:29 | PN ---
DATE: 11/09/2018 SUBJECTIVE: The patient remains confused and agitated. No other events noted. OBJECTIVE: VITAL SIGNS: Blood pressure is 157/94, respirations 18, pulse 59, temperature 98.6. HEENT: Head is normocephalic. NECK: Supple. HEART: Regular rate. LUNGS: Show diminished breath sounds at the base. ABDOMEN: Soft, nontender to palpation without rebound or guarding. EXTREMITIES: Negative for clubbing, cyanosis. Trace edema. DERMATOLOGIC: No rashes. MUSCULOSKELETAL: No joint effusion. NEUROLOGIC: No change in exam. MEDICATIONS: Reviewed. LABORATORY DATA: Reviewed. ASSESSMENT AND PLAN: 1. Nonoliguric acute kidney injury with unknown baseline creatinine. Etiology is secondary to hemod ynamics. Renal function is improved. Continue current treatment plan, supportive care and renally d ose all medications. 2. Hypokalemia. Continue to monitor and replete. 3. Hypernatremia. We will increase free water flushes 200 mL q.4 hours. Continue to monitor sodium levels. 4. Anemia. Continue to monitor hemoglobin and hematocrit levels. 5. Mineral bone disorder. Monitor calcium and phosphorus levels. 6. Ventilator-dependent respiratory failure. Vent settings have been reviewed. Continue to monitor . 7. Acute encephalopathy, etiology is toxic metabolic. 8. Hypertension. Continue current blood pressure regimen. 9. Dyslipidemia. Continue statin therapy. 10. Sepsis, bacteremia. The patient is completing antibiotic course. 11. Non-ST elevation myocardial infarction. Continue medical management. Follow up with cardiology . 12. Arrhythmia. Continue to monitor. 13. History of ventriculoperitoneal shunt. Dictated By: RENEE DUONG/PRISCILLA Conf#: [id number] DID#: [id number] CC: ISA CRUM; BRANDT RAMÍREZ;*EndCC*
--- NOTE | 2018-11-09 11:46 | PN ---
Date/Time of Note Date/Time of Note DATE: 11/09/18 TIME: 11:41 Assessment/Plan VTE Prophylaxis Risk score (from Nsg)>0 risk: 8 SCD applied (from Nsg): Yes Pharmacological prophylaxis: LMWH Lines/Catheters IV Catheter Type (from Nrsg): Saline Lock Urinary Cath still in place: Yes Reason Cath still needed: pres ulcer contaminated by urine Assessment/Plan Assessment/Plan 43-year-old male with history of subarachnoid hemorrhage with subsequent [employer] shunt, tracheostomy placement, G-tube placement, hypertension, high cholesterol, depression, gastroesophageal reflux disease, who comes in from outside facility with signs of pneumonia, elevated troponins, slight lactic acidosis and renal insufficiency. # Apnea and altered mental status - again likely secondary to positive brain MRI findings of infarct, there could be also component contributing from patient's pneumonia and possible non-ST elevation myocardial infarction. -Continue antibiotics for bacteremia. -Per neurology team, hold off on benzos, continue Seroquel as needed, follow- up results of CTA head neck. Also follow-up hypercoagulable work-up panel, continue aspirin. -Per discussed with neurology team, they are requesting JAKE to be performed given the MRI brain findings. Will discuss with cardiology team. -Continue Tylenol p.r.n. pain and fevers. -Follow-up further recommendations from speech evmarita #Hematua - Hematuria noted 11/08 - Patient was agitated, may have pulled at his [place]. Now on restraints. - Will closely monitor for a few days. If Higgins trauma, expect it to slowly clear up. If it worsens will call urology. # Elevated troponins - again signs of non-ST elevation myocardial infarction. - continue Lovenox 1 mg/kg daily per cardiology recommendations, continue to trend his troponins. -Continue high dose aspirin and Lipitor, Morphine p.r.n., nitroglycerin p.r.n. # Renal insufficiency-resolving now, creatinine is presently normal -Monitor, follow-up recommendations from renal consult. - Continue IV fluids. # History of hypertension. Again, blood pressure is presently stable. - Continue to monitor for now. He is on hydralazine p.r.n. # History of high cholesterol. - Continue Lipitor. # Tracheostomy placement stable - Continue oxygen supplementation via trach via mechanical ventilation. - Consider pulmonary consult if worsens # Deep venous thrombosis prophylaxis- Lovenox. # History of gastroesophageal reflux disease- H2 kendall. Result Diagram: 11/09/1852611/09/18526 Subjective 24 Hr Interval Summary Free Text/Dictation Got lots of benzodiazepines and antipsychotics last night. This morning too sleepy to participate in speech therapy. Exam/Review of Systems Exam Vitals Vital Signs Date Temp Pulse Resp B/P (MAP) Pulse Ox O2 O2 Flow FiO2 Time Delivery Rate 11/09/18 64 22 100 30 09:31 11/09/18 97.8 151/86 08:00 (107) 11/07/18 Mechanical 18:37 Ventilator Intake and Output 11/08/18 11/08/18 11/09/18 1515:00 23:00 07:00 IntakeIntake Total 250 ml OutputOutput Total 350 ml BalanceBalance 250 ml -350 ml Exam GENERAL: lying in bed, sleeping. HEENT: Pupils are equal, round, reactive to light. Extraocular muscles are i ntact. NECK: Supple. Tracheostomy site looks clean, dry and intact. RESPIRATORY: Slightly distant breath sounds bilaterally. CARDIOVASCULAR: S1, S2 heard. No murmurs, rubs or gallops. ABDOMEN: G-tube in place. Normal bowel sounds. No rebound or guarding. MUSCULOSKELETAL: No lower extremity edema bilaterally. Results Results 24hrs Laboratory Tests Test 11/08/18 16:18 11/08/18 16:20 11/09/18 05:27 Procalcitonin 0.10 Vancomycin Level Trough 15.8 Urine Color LATISHA Urine Clarity CLOUDY A Urine pH 7.0 Urine Specific [place] 1.025 Urine Ketones NEGATIVE Urine Nitrite NEGATIVE Urine Bilirubin NEGATIVE Urine Urobilinogen NEGATIVE Urine Leukocyte Esterase NEGATIVE Urine Microscopic RBC > 182 H Urine Microscopic WBC 83 H Urine Bacteria FEW A Urine Hemoglobin 3+ H Urine Glucose NEGATIVE Urine Total Protein 2+ H White Blood Count 7.1 Red Blood Count 3.71 L Hemoglobin 11.7 L Hematocrit 35.0 L Mean Corpuscular Volume 94.3 Mean Corpuscular Hemoglobin 31.5 Mean Corpuscular Hemoglobin Concent 33.4 Red Cell Distribution Width 12.3 Platelet Count 245 Mean Platelet Volume 9.2 Immature Granulocytes % 1.800 H Neutrophils % 56.2 Lymphocytes % 22.9 Monocytes % 11.7 H Eosinophils % 6.6 Basophils % 0.8 Nucleated Red Blood Cells % 0.0 Immature Granulocytes # 0.130 H Neutrophils # 4.0 Lymphocytes # 1.6 Monocytes # 0.8 Eosinophils # 0.5 Basophils # 0.1 Nucleated Red Blood Cells # 0.0 Sodium Level 145 H Potassium Level 3.9 Chloride Level 106 Carbon Dioxide Level 35 H Anion Gap 4 L Blood Urea Nitrogen 5 L Creatinine 0.62 Est Glomerular Filtrat Rate mL/min > 60 Glucose Level 82 Calcium Level 8.4 Phosphorus Level 5.2 H Magnesium Level 2.1 Medications Medication Current Medications Naloxone HCl (Narcan) 1 mg Q2M PRN IV LETHARGY Last administered on 11/03/18at 07:19; Admin Dose 1 MG; Start 11/03/18 at 07:00 IV Flush (NS 3 ml) 3 ml PER PROTOCOL IV ; Start 11/03/18 at 12:00 Ondansetron HCl (Zofran Inj) 4 mg Q6H PRN IV NAUSEA/VOMITING Last administered on 11/07/18at 17:46; Admin Dose 4 MG; Start 11/03/18 at 12:00 Acetaminophen (Tylenol Tab) 650 mg Q6H PRN PO .PAIN 1-3 OR TEMP; Start 11/03/18 at 12:00 Acetaminophen/ Hydrocodone Bitart ([place] (5/325)) 1 tab Q6H PRN PO .MOD PAIN 4- 6 Last administered on 11/09/18at 00:29; Admin Dose 1 TAB; Start 11/03/18 at 12:00 Docusate Sodium (Colace) 100 mg Q12H PRN PO .CONSTIPATION; Start 11/03/18 at 12:00 Magnesium Hydroxide (Milk Of Mag) 30 ml DAILY PRN PO .CONSTIPATION Last administered on 11/07/18at 17:47; Admin Dose 30 ML; Start 11/03/18 at 12:00 Albuterol/ Ipratropium (Duoneb) 3 ml Q4H RESP THERAPY PRN HHN SHORTNESS OF BR EATH Last administered on 11/06/18at 05:07; Admin Dose 3 ML; Start 11/03/18 at 12:00 Vancomycin HCl (Vanco Iv Per Pharmacy) VANCOMYCIN PER PHARMACY NOTE XX ; Start 11/03/18 at 12:00 Hydralazine HCl (Apresoline) 10 mg Q6H PRN IV ELEVATED BLOOD PRESSURE; Start 11/03/18 at 12:00 Nitroglycerin (Nitroglycerin (Sl Tab) 0.4 Mg) 1 tab Q5M PRN SL ANGINA; Start 11/03/18 at 12:00 Aspirin (Ecotrin) 325 mg DAILY PO Last administered on 11/09/18 09:08; Admin Dose 325 MG; Start 11/04/18 at 09:00 Ascorbic Acid (Vitamin C) 500 mg DAILY GTB Last administered on 11/09/18 09:07; Admin Dose 500 MG; Start 11/04/18 at 09:00 Atorvastatin Calcium (Lipitor) 80 mg QHS GTB Last administered on 11/08/18 20:19; Admin Dose 80 MG; Start 11/03/18 at 21:00 Bisacodyl (Dulcolax Supp) 10 mg DAILY PRN [place] CONSTIPATION; Start 11/03/18 at 12:00 Chlorhexidine Gluconate (Peridex) 15 ml Q12H MM Last administered on 11/09/18 00:32; Admin Dose 15 ML; Start 11/03/18 at 12:00 Clonidine (Catapres) 0.2 mg Q8H PRN GTB SBP ABOVE 160; Start 11/03/18 at 12:00 Valproate Sodium (Depakene Liquid Cup) 500 mg BID GTB Last administered on 11/09/18 09:06; Admin Dose 500 MG; Start 11/03/18 at 21:00 Zinc Sulfate (Zinc Sulfate) 220 mg DAILY GTB Last administered on 11/09/18 09:07; Admin Dose 220 MG; Start 11/04/18 at 09:00 Lactobacillus Acidophilus/ Rhamnosus (Culturelle) 1 cap DAILY PO Last administered on 11/09/18 09:07; Admin Dose 1 CAP; Start 11/04/18 at 09:00 Multivitamins/ Minerals (Theragran-M) 1 tab DAILY PO Last administered on 11/09/18 09:07; Admin Dose 1 TAB; Start 11/04/18 at 09:00 Enoxaparin Sodium (Lovenox) 70 mg DAILY SC Last administered on 11/09/18 09:28; Admin Dose 70 MG; Start 11/04/18 at 09:00 Metoprolol Tartrate (Lopressor) 25 mg BID PO Last administered on 11/09/18 09:07; Admin Dose 25 MG; Start 11/03/18 at 21:00 Gabapentin (Neurontin) 600 mg BID GTB Last administered on 11/09/18 09:06; Admin Dose 600 MG; Start 11/04/18 at 12:00 Risperidone (Risperdal) 2 mg DAILY GTB Last administered on 11/09/18 09:07; Admin Dose 2 MG; Start 11/04/18 at 14:00 Mupirocin (Bactroban) 1 applic BID TOP Last administered on 11/09/18 09:09; Admin Dose 1 APPLIC; Start 11/05/18 at 12:00 Quetiapine Fumarate (Seroquel) 12.5 mg Q8 PRN GTB AGITATION Last administered on 11/09/18 01:50; Admin Dose 12.5 MG; Start 11/06/18 at 11:00 Diphenhydramine HCl (Benadryl) 25 mg Q6H PRN IV ITCHING Last administered on 11/09/18 06:35; Admin Dose 25 MG; Start 11/06/18 at 18:00 Famotidine (Pepcid) 20 mg BID GTB Last administered on 11/09/18 09:07; Admin Dose 20 MG; Start 11/07/18 at 09:00 Vancomycin HCl 250 ml @ 125 mls/hr Q8H IVPB Last administered on 11/09/18 09:08; Admin Dose 125 MLS/HR; Start 11/07/18 at 09:00 NORMAN LEAL MD November 09, 2018 11:46
--- NOTE | 2018-11-09 12:48 | CONS ---
Assessment/Plan Assessment/Plan Hospital Course 43 yo M with multiple comorbidities who presents for evaluation of ams in the context of respiratory sx. 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 for which neurology is consulted. The clinical picture raises concern for a cardioembolic process. Vasculitis is not yet excluded.. Echo (TTE) is unrevealing. CTA H/N was only notable for stable L MARNI aneurysm coil LDL 16 P: Await hypercoag panel Recommend JAKE Cont ASA for secondary stroke prevention; LDL is at goal BP and other medical management per primary [place] as able Limit sedating medications where possible PT/OT/ST when able Will follow clinically, to recommend neurologic studies, as necessary Consultation Date/Type/Reason Admit Date/Time November 03, 2018 at 10:30 Type of Consult Neurology Reason for Consultation multifocal strokes Requesting Provider: BRANDT RAMÍREZ Date/Time of Note DATE: 11/09/18 TIME: 12:48 24 HR Interval Summary Free Text/Dictation Continues acute care. Exam Vital Signs Vitals Vital Signs Date Temp Pulse Resp B/P (MAP) Pulse Ox O2 O2 Flow FiO2 Time Delivery Rate 11/09/18 59 12:14 11/09/18 97.6 20 150/92 92 12:00 (111) 11/09/18 30 11:38 11/07/18 Mechanical 18:37 Ventilator Intake and Output 11/08/18 11/08/18 11/09/18 1515:00 23:00 07:00 IntakeIntake Total 250 ml OutputOutput Total 350 ml BalanceBalance 250 ml -350 ml Exam PE: Gen Appearance: No Apparent Distress HEENT: Trached Cardiovascular: Regular rate Abdomen: Soft Extremities: Dry NE: The patient was sedated Cranial nerve examination was limited by mental status. Pupils were equal and reactive to light. There was no afferent pupillary defect. Funduscopic examination was limited. Face was grossly symmetric, w/ present corneal and cough reflexes. Tone was normal. Muscle bulk was normal. I did not see fasciculations. The patient had spontaneous movement of all extremities. Coordination and gait testing was limited by mental status. Arm and leg reflexes were within normal limits and symmetric. Carlson's sign was absent. Plantar responses were flexor. MOY BENJAMIN NP November 09, 2018 12:48
--- NOTE | 2018-11-09 17:22 | CONS ---
Assessment/Plan Assessment/Plan Hospital Course (Demo Recall) IMPRESSION: 1. Positive troponin with uptrending consistent with non-ST elevation myocardial infarction-Echo EF 50-55 11/03 2. Abnormal electrocardiogram with incomplete right bundle branch block. 3. Tachycardia, mild. 4. Chronic respiratory failure, status post tracheostomy. 5. Dysphagia, status post G-tube. 6. History of subarachnoid hemorrhage. 7. History of ventriculoperitoneal shunt. 8. 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 Recc: -Tele -Continue asa/statin -Continue BB -Continue current lovenox dose eventhough creatnine has improved as patient troponin decreasing and has h/o SAH/METAL WELDER shunt -Continue to trend cardiac enzymes which are downtrended -would continue to monitor for occult arrythmia(AF) -Tenatively scheduled for JAKE tomrrow. May do bedside depending upon stability of patient resp status -F/U hypercxoag w/u Consultation Date/Type/Reason Admit Date/Time November 03, 2018 at 10:30 Initial Consult Date 11/04/18 Type of Consult Cardiology Reason for Consultation Nstemi Requesting Provider: BRANDT RAMÍREZ Date/Time of Note DATE: 11/09/18 TIME: 17:18 Exam/Review of Systems Vital Signs Vitals Vital Signs Date Temp Pulse Resp B/P (MAP) Pulse Ox O2 O2 Flow FiO2 Time Delivery Rate 11/09/18 52 16:19 11/09/18 14 100 30 15:40 11/09/18 98.0 100/67 14:03 (78) 11/07/18 Mechanical 18:37 Ventilator Intake and Output 11/08/18 11/08/18 11/09/18 1515:00 23:00 07:00 IntakeIntake Total 250 ml OutputOutput Total 350 ml BalanceBalance 250 ml -350 ml Exam Exam Review of Systems: CONSTITUTIONAL: No fevers, chills. PULMONARY: No sob CARDIOVASCULAR: No chest pain/palpitations GASTROINTESTINAL: No nausea/vomiting. GENITOURINARY: No hematuria/dysuria. MUSCULOSKELETAL: No myagias/arthalgias. PSYCHIATRIC: The patient denies depression. NEUROLOGIC: No weakness Constitutional: alert Psych: no complaints Head: normocephalic ENMT: mucosa pink and moist Neck: supple, jvd (9 cm water), other (trached) Respiratory: diminished breath sounds (at bases/B) Cardiovascular: regular rate and rhythm Gastrointestinal: soft, non-tender Musculoskeletal: muscle tone (normal) Extremities: edema (none) Neurological: confused, lethargic, other (NO focal deficits) Labs Result Diagram: 11/09/1852611/09/18 0527 Results 24hrs Laboratory Tests Test 11/09/18 05:27 White Blood Count 7.1 Red Blood Count 3.71 L Hemoglobin 11.7 L Hematocrit 35.0 L Mean Corpuscular Volume 94.3 Mean Corpuscular Hemoglobin 31.5 Mean Corpuscular Hemoglobin Concent 33.4 Red Cell Distribution Width 12.3 Platelet Count 245 Mean Platelet Volume 9.2 Immature Granulocytes % 1.800 H Neutrophils % 56.2 Lymphocytes % 22.9 Monocytes % 11.7 H Eosinophils % 6.6 Basophils % 0.8 Nucleated Red Blood Cells % 0.0 Immature Granulocytes # 0.130 H Neutrophils # 4.0 Lymphocytes # 1.6 Monocytes # 0.8 Eosinophils # 0.5 Basophils # 0.1 Nucleated Red Blood Cells # 0.0 Sodium Level 145 H Potassium Level 3.9 Chloride Level 106 Carbon Dioxide Level 35 H Anion Gap 4 L Blood Urea Nitrogen 5 L Creatinine 0.62 Est Glomerular Filtrat Rate mL/min > 60 Glucose Level 82 Calcium Level 8.4 Phosphorus Level 5.2 H Magnesium Level 2.1 Medications Medications Current Medications Naloxone HCl (Narcan) 1 mg Q2M PRN IV LETHARGY Last administered on 11/03/18at 07:19; Admin Dose 1 MG; Start 11/03/18 at 07:00 IV Flush (NS 3 ml) 3 ml PER PROTOCOL IV ; Start 11/03/18 at 12:00 Ondansetron HCl (Zofran Inj) 4 mg Q6H PRN IV NAUSEA/VOMITING Last administered on 11/07/18at 17:46; Admin Dose 4 MG; Start 11/03/18 at 12:00 Acetaminophen (Tylenol Tab) 650 mg Q6H PRN PO .PAIN 1-3 OR TEMP; Start 11/03/18 at 12:00 Acetaminophen/ Hydrocodone Bitart ([place] (5/325)) 1 tab Q6H PRN PO .MOD PAIN 4- 6 Last administered on 11/09/18at 00:29; Admin Dose 1 TAB; Start 11/03/18 at 12:00 Docusate Sodium (Colace) 100 mg Q12H PRN PO .CONSTIPATION; Start 11/03/18 at 12:00 Magnesium Hydroxide (Milk Of Mag) 30 ml DAILY PRN PO .CONSTIPATION Last administered on 11/07/18at 17:47; Admin Dose 30 ML; Start 11/03/18 at 12:00 Albuterol/ Ipratropium (Duoneb) 3 ml Q4H RESP THERAPY PRN HHN SHORTNESS OF BREATH Last administered on 11/06/18at 05:07; Admin Dose 3 ML; Start 11/03/18 at 12:00 Vancomycin HCl (Vanco Iv Per Pharmacy) VANCOMYCIN PER PHARMACY NOTE XX ; Start 11/03/18 at 12:00 Hydralazine HCl (Apresoline) 10 mg Q6H PRN IV ELEVATED BLOOD PRESSURE; Start 11/03/18 at 12:00 Nitroglycerin (Nitroglycerin (Sl Tab) 0.4 Mg) 1 tab Q5M PRN SL ANGINA; Start 11/03/18 at 12:00 Aspirin (Ecotrin) 325 mg DAILY PO Last administered on 11/09/18at 09:08; Admin Dose 325 MG; Start 11/04/18 at 09:00 Ascorbic Acid (Vitamin C) 500 mg DAILY GTB Last administered on 11/09/18at 09:07; Admin Dose 500 MG; Start 11/04/18 at 09:00 Atorvastatin Calcium (Lipitor) 80 mg QHS GTB Last administered on 11/08/18at 20:19; Admin Dose 80 MG; Start 11/03/18 at 21:00 Bisacodyl (Dulcolax Supp) 10 mg DAILY PRN [place] CONSTIPATION; Start 11/03/18 at 12:00 Chlorhexidine Gluconate (Peridex) 15 ml Q12H MM Last administered on 11/09/18at 12:30; Admin Dose 15 ML; Start 11/03/18 at 12:00 Clonidine (Catapres) 0.2 mg Q8H PRN GTB SBP ABOVE 160; Start 11/03/18 at 12:00 Valproate Sodium (Depakene Liquid Cup) 500 mg BID GTB Last administered on 11/09/18at 09:06; Admin Dose 500 MG; Start 11/03/18 at 21:00 Zinc Sulfate (Zinc Sulfate) 220 mg DAILY GTB Last administered on 11/09/18 09:07; Admin Dose 220 MG; Start 11/04/18 at 09:00 Lactobacillus Acidophilus/ Rhamnosus (Culturelle) 1 cap DAILY PO Last administered on 11/09/18 09:07; Admin Dose 1 CAP; Start 11/04/18 at 09:00 Multivitamins/ Minerals (Theragran-M) 1 tab DAILY PO Last administered on 11/09/18 09:07; Admin Dose 1 TAB; Start 11/04/18 at 09:00 Enoxaparin Sodium (Lovenox) 70 mg DAILY SC Last administered on 11/09/18 09:28; Admin Dose 70 MG; Start 11/04/18 at 09:00 Metoprolol Tartrate (Lopressor) 25 mg BID PO Last administered on 11/09/18 09:07; Admin Dose 25 MG; Start 11/03/18 at 21:00 Gabapentin (Neurontin) 600 mg BID GTB Last administered on 11/09/18 09:06; Admin Dose 600 MG; Start 11/04/18 at 12:00 Risperidone (Risperdal) 2 mg DAILY GTB Last administered on 11/09/18 09:07; Admin Dose 2 MG; Start 11/04/18 at 14:00 Mupirocin (Bactroban) 1 applic BID TOP Last administered on 11/09/18 09:09; Admin Dose 1 APPLIC; Start 11/05/18 at 12:00 Quetiapine Fumarate (Seroquel) 12.5 mg Q8 PRN GTB AGITATION Last administered on 11/09/18 01:50; Admin Dose 12.5 MG; Start 11/06/18 at 11:00 Diphenhydramine HCl (Benadryl) 25 mg Q6H PRN IV ITCHING Last administered on 11/09/18 06:35; Admin Dose 25 MG; Start 11/06/18 at 18:00 Famotidine (Pepcid) 20 mg BID GTB Last administered on 11/09/18 09:07; Admin Dose 20 MG; Start 11/07/18 at 09:00 Vancomycin HCl 250 ml @ 125 mls/hr Q8H IVPB Last administered on 11/09/18 16:34; Admin Dose 125 MLS/HR; Start 11/07/18 at 09:00 NORMAN KESSLER November 09, 2018 17:22
[2018-11-09] MEDS: ATORVASTATIN 40 MG TAB GTB SCH (23:13)
[2018-11-10] VITALS (32 sets, daily range): BP systolic 98–161; BP diastolic 54–100; PULSE 51–95; RESP 14–34
[2018-11-10] MEDS: DIPHENHYDRAMINE 50 MG INJ IV PRN ×2 (01:22→10:17)
[2018-11-10] MEDS: VANCOMYCIN 1 GM 250 ML IVPB SCH ×2 (01:22→09:02)
[2018-11-10] MEDS: ENOXAPARIN 80 MG/0.8 ML SYG SC SCH (09:00)
[2018-11-10] MEDS: ASPIRIN (EC) 325 MG TAB PO SCH (09:00)
[2018-11-10] MEDS: MULTIVITAMINS/MINERALS TAB PO SCH (09:00)
[2018-11-10] MEDS: VALPROIC ACID LIQUID CUP 250 MG/5 ML CUP GTB SCH ×2 (09:04→20:34)
[2018-11-10] MEDS: GABAPENTIN 300 MG CAP GTB SCH ×2 (09:05→20:34)
[2018-11-10] MEDS: LACTOBACILLUS RHAMNOSUS CAP PO SCH (09:05)
[2018-11-10] MEDS: ZINC SULFATE 220 MG CAP GTB SCH (09:05)
[2018-11-10] MEDS: ASCORBIC ACID 500 MG TAB GTB SCH (09:06)
[2018-11-10] MEDS: FAMOTIDINE 20 MG TAB GTB SCH ×2 (09:06→20:34)
[2018-11-10] MEDS: RISPERIDONE 2 MG TAB GTB SCH (09:06)
[2018-11-10] MEDS: METOPROLOL 25 MG TAB PO SCH ×2 (09:06→20:34)
[2018-11-10] MEDS: MUPIROCIN 2% 22 GM OINT TOP SCH ×2 (09:07→20:35)
[2018-11-10] MEDS: ACETAMINOPHEN 325 MG TAB PO PRN (10:18)
--- NOTE | 2018-11-10 10:35 | PN ---
DATE: 11/10/2018 SUBJECTIVE: The patient is stable, no events overnight. OBJECTIVE: VITAL SIGNS: Blood pressure is 161/100, pulse 74, respirations 20, temperature 98.0. HEENT: Head is normocephalic. NECK: Supple. HEART: Regular rate. LUNGS: Show diminished breath sounds at the base. ABDOMEN: Soft, nontender to palpation without rebound or guarding. EXTREMITIES: Negative for clubbing, cyanosis, no edema. DERMATOLOGIC: No rashes. MUSCULOSKELETAL: No joint effusion. NEUROLOGIC: No change in exam. MEDICATIONS: Reviewed. LABORATORY DATA: Reviewed. ASSESSMENT AND PLAN: 1. Nonoliguric acute kidney injury with unknown baseline creatinine. Etiology of acute kidney injur y is secondary to hemodynamics. Renal function is improved. Continue current treatment plans, suppo rtive care, renally dose all medications. 2. Hypernatremia. The patient continues to have a free water deficit of approximately 1 to 2 liters . We will increase free water flushes 300 mL q.4h. and continue to monitor. 3. Anemia. Monitor hemoglobin and hematocrit levels. 4. Mineral bone disorder, monitor calcium and phosphorus levels. 5. Ventilator-dependent respiratory failure. Vent settings have been reviewed. Continue to monitor . 6. Acute encephalopathy, etiology is toxic metabolic. 7. Hypertension. Continue current blood pressure regimen. 8. Dyslipidemia. Continue statin therapy. 9. Sepsis, bacteremia. The patient is completing antibiotic course. 10. ST elevated myocardial infarction. Continue medical management. Follow up with Cardiology. 11. Arrhythmia. Continue to monitor. 12. History of ventriculoperitoneal shunt. Dictated By: RENEE DUONG/PRISCILLA Conf#: [id number] DID#: [id number] CC: BRANDT RAMÍREZ; ISA CRUM;*EndCC*
--- NOTE | 2018-11-10 11:51 | CONS ---
Assessment/Plan Assessment/Plan Hospital Course 43 yo M with multiple comorbidities who presents for evaluation of ams in the context of respiratory sx. 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 for which neurology is consulted. The clinical picture raises concern for a cardioembolic process. Vasculitis is less likely. Echo (TTE) is unrevealing. CTA H/N was only notable for stable L MARNI aneurysm coil LDL 16, ESR 57, RPR neg, HIV neg P: Await hypercoag panel Await JAKE Cont ASA for secondary stroke prevention; LDL is at goal BP and other medical management per primary Merrick as able Limit sedating medications where possible PT/OT/ST when able Will follow clinically, to recommend neurologic studies, as necessary Consultation Date/Type/Reason Admit Date/Time November 03, 2018 at 10:30 Type of Consult Neurology Reason for Consultation multifocal strokes Requesting Provider: BRANDT RAMÍREZ Date/Time of Note DATE: 11/10/18 TIME: 11:51 24 HR Interval Summary Free Text/Dictation Continues acute care. Scheduled for JAKE today. Exam Vital Signs Vitals Vital Signs Date Temp Pulse Resp B/P (MAP) Pulse Ox O2 O2 Flow FiO2 Time Delivery Rate 11/10/18 98.5 14 129/87 96 Mechanical 10:00 (101) Ventilator 11/10/18 92 09:35 11/09/18 30 17:41 Intake and Output 11/09/18 11/09/18 11/10/18 1515:00 23:00 07:00 IntakeIntake Total 250 ml OutputOutput Total 1100 ml BalanceBalance -850 ml Exam PE: Gen Appearance: No Apparent Distress; On 2-pt restraints HEENT: Trached Cardiovascular: Regular rate Abdomen: Soft Extremities: Dry NE: The patient was awake, alert, and mouthing words. Unable to understand d/t trach. The pt was able to follow simple axial and appendicular commands. Cranial nerve examination was limited by mental status. Pupils were equal and reactive to light. There was no afferent pupillary defect. Funduscopic examination was limited. Face was grossly symmetric, w/ present corneal and cough reflexes. Tone was normal. Muscle bulk was normal. I did not see fasciculations. The patient had spontaneous movement of all extremities. Coordination and gait testing was limited by mental status. Arm and leg reflexes were within normal limits and symmetric. Carlson's sign was absent. Plantar responses were flexor. MOY BENJAMIN NP November 10, 2018 11:51
--- NOTE | 2018-11-10 11:54 | PN ---
Date/Time of Note Date/Time of Note DATE: 11/10/18 TIME: 11:49 Assessment/Plan VTE Prophylaxis Risk score (from Ns)>0 risk: 6 SCD applied (from Ns): Yes Pharmacological prophylaxis: NA/contraindicated Pharm contraindication: hemorrhagic infarct Lines/Catheters IV [facility] Saline Lock Urinary Cath still in place: Yes Reason Cath still needed: other (indicate) (hematuria) Assessment/Plan Assessment/Plan 43-year-old male with history of subarachnoid hemorrhage with subsequent [employer] shunt, tracheostomy placement, G-tube placement, hypertension, high cholesterol, depression, gastroesophageal reflux disease, who comes in from outside facility with signs of pneumonia, elevated troponins, slight lactic acidosis and renal in sufficiency. # Embolic stroke - brain MRI findings of infarct -Continue antibiotics for bacteremia. -Per neurology team, hold off on benzos, continue Seroquel as needed, follow- up results of CTA head neck. Also follow-up hypercoagulable work-up panel, continue aspirin. -Plan for JAKE today to look for vegetations or thrombus which may have been source of embolic storke. . -Continue Tylenol p.r.n. pain and fevers. -Follow-up further recommendations from speech eval #Hematuria - Hematuria noted 11/08 - Patient was agitated, may have pulled at his Higgins. Now on restraints. - Will closely monitor for a few days. If Higgins trauma, expect it to slowly clear up. If it worsens will call urology. # Elevated troponins - again signs of non-ST elevation myocardial infarction. - continue Lovenox 1 mg/kg daily per cardiology recommendations -Continue high dose aspirin and Lipitor, Morphine p.r.n., nitroglycerin p.r.n. # Renal insufficiency-resolving now, creatinine is presently normal -Monitor, follow-up recommendations from renal consult. - Continue IV fluids. # History of hypertension. Again, blood pressure is presently stable. - Continue to monitor for now. He is on hydralazine p.r.n. # History of high cholesterol. - Continue Lipitor. # Tracheostomy placement - Patient awake and breathing comfortably, will make an effort to wean off ventilator. # Deep venous thrombosis prophylaxis- Lovenox. # History of gastroesophageal reflux disease- H2 kendall. Result Diagram: 11/10/18 0541 11/10/18 0541 Subjective 24 Hr Interval Summary Free Text/Dictation Patient awake, alert, following commands. Plan for JAKE today. Requires 1:1 sitter. Agitated on restraints, trying to pull out trach. Exam/Review of Systems Exam Vitals Vital Signs Date Temp Pulse Resp B/P (MAP) Pulse Ox O2 O2 Flow FiO2 Time Delivery Rate 11/10/18 98.5 14 129/87 96 Mechanical 10:00 (101) Ventilator 11/10/18 92 09:35 11/09/18 30 17:41 Intake and Output 11/09/18 11/09/18 11/10/18 1515:00 23:00 07:00 IntakeIntake Total 250 ml OutputOutput Total 1100 ml BalanceBalance -850 ml Exam GENERAL: lying in bed, sleeping. HEENT: Pupils are equal, round, reactive to light. Extraocular muscles are intact. NECK: Supple. Tracheostomy site looks clean, dry and intact. RESPIRATORY: Slightly distant breath sounds bilaterally. CARDIOVASCULAR: S1, S2 heard. No murmurs, rubs or gallops. ABDOMEN: G-tube in place. Normal bowel sounds. No rebound or guarding. MUSCULOSKELETAL: No lower extremity edema bilaterally. Results Results 24hrs Laboratory Tests Test 11/10/18 05:41 White Blood Count 12.8 #H Red Blood Count 4.12 L Hemoglobin 12.8 L Hematocrit 38.8 L Mean Corpuscular Volume 94.2 Mean Corpuscular Hemoglobin 31.1 Mean Corpuscular Hemoglobin Concent 33.0 Red Cell Distribution Width 12.7 Platelet Count 257 Mean Platelet Volume 9.1 Immature Granulocytes % 1.500 H Neutrophils % 76.8 Lymphocytes % 11.5 L Monocytes % 7.3 Eosinophils % 2.4 Basophils % 0.5 Nucleated Red Blood Cells % 0.0 Immature Granulocytes # 0.190 H Neutrophils # 9.8 H Lymphocytes # 1.5 Monocytes # 0.9 Eosinophils # 0.3 Basophils # 0.1 Nucleated Red Blood Cells # 0.0 Sodium Level 146 H Potassium Level 3.9 Chloride Level 106 Carbon Dioxide Level 33 H Anion Gap 7 Blood Urea Nitrogen 5 L Creatinine 0.67 Est Glomerular Filtrat Rate mL/min > 60 Glucose Level 83 Calcium Level 8.8 Medications Medication Current Medications Naloxone HCl (Narcan) 1 mg Q2M PRN IV LETHARGY Last administered on 11/03/18at 07:19; Admin Dose 1 MG; Start 11/03/18 at 07:00 IV Flush (NS 3 ml) 3 ml PER PROTOCOL IV ; Start 11/03/18 at 12:00 Ondansetron HCl (Zofran Inj) 4 mg Q6H PRN IV NAUSEA/VOMITING Last administered on 11/07/18at 17:46; Admin Dose 4 MG; Start 11/03/18 at 12:00 Acetaminophen (Tylenol Tab) 650 mg Q6H PRN PO .PAIN 1-3 OR TEMP Last administered on 11/10/18at 10:18; Admin Dose 650 MG; Start 11/03/18 at 12:00 Acetaminophen/ Hydrocodone Bitart ([place] (5/325)) 1 tab Q6H PRN PO .MOD PAIN 4- 6 Last administered on 11/09/18at 00:29; Admin Dose 1 TAB; Start 11/03/18 at 12:00 Docusate Sodium (Colace) 100 mg Q12H PRN PO .CONSTIPATION; Start 11/03/18 at 12:00 Magnesium Hydroxide (Milk Of Mag) 30 ml DAILY PRN PO .CONSTIPATION Last administered on 11/07/18at 17:47; Admin Dose 30 ML; Start 11/03/18 at 12:00 Albuterol/ Ipratropium (Duoneb) 3 ml Q4H RESP THERAPY PRN HHN SHORTNESS OF B REATH Last administered on 11/06/18at 05:07; Admin Dose 3 ML; Start 11/03/18 at 12:00 Vancomycin HCl (Vanco Iv Per Pharmacy) VANCOMYCIN PER PHARMACY NOTE XX ; Start 11/03/18 at 12:00 Hydralazine HCl (Apresoline) 10 mg Q6H PRN IV ELEVATED BLOOD PRESSURE; Start 11/03/18 at 12:00 Nitroglycerin (Nitroglycerin (Sl Tab) 0.4 Mg) 1 tab Q5M PRN SL ANGINA; Start 11/03/18 at 12:00 Aspirin (Ecotrin) 325 mg DAILY PO Last administered on 11/09/18at 09:08; Admin Dose 325 MG; Start 11/04/18 at 09:00 Ascorbic Acid (Vitamin C) 500 mg DAILY GTB Last administered on 11/10/18at 09:06; Admin Dose 500 MG; Start 11/04/18 at 09:00 Atorvastatin Calcium (Lipitor) 80 mg QHS GTB Last administered on 11/09/18 23:13; Admin Dose 80 MG; Start 11/03/18 at 21:00 Bisacodyl (Dulcolax Supp) 10 mg DAILY PRN [place] CONSTIPATION; Start 11/03/18 at 12:00 Chlorhexidine Gluconate (Peridex) 15 ml Q12H MM Last administered on 11/10/18 00:00; Admin Dose 15 ML; Start 11/03/18 at 12:00 Clonidine (Catapres) 0.2 mg Q8H PRN GTB SBP ABOVE 160; Start 11/03/18 at 12:00 Valproate Sodium (Depakene Liquid Cup) 500 mg BID GTB Last administered on 11/10/18 09:04; Admin Dose 500 MG; Start 11/03/18 at 21:00 Zinc Sulfate (Zinc Sulfate) 220 mg DAILY GTB Last administered on 11/10/18 09:05; Admin Dose 220 MG; Start 11/04/18 at 09:00 Lactobacillus Acidophilus/ Rhamnosus (Culturelle) 1 cap DAILY PO Last administered on 11/10/18 09:05; Admin Dose 1 CAP; Start 11/04/18 at 09:00 Multivitamins/ Minerals (Theragran-M) 1 tab DAILY PO Last administered on 11/09/18 09:07; Admin Dose 1 TAB; Start 11/04/18 at 09:00 Enoxaparin Sodium (Lovenox) 70 mg DAILY SC Last administered on 11/09/18 09:28; Admin Dose 70 MG; Start 11/04/18 at 09:00 Metoprolol Tartrate (Lopressor) 25 mg BID PO Last administered on 11/10/18 09:06; Admin Dose 25 MG; Start 11/03/18 at 21:00 Gabapentin (Neurontin) 600 mg BID GTB Last administered on 11/10/18 09:05; Admin Dose 600 MG; Start 11/04/18 at 12:00 Risperidone (Risperdal) 2 mg DAILY GTB Last administered on 11/10/18 09:06; Admin Dose 2 MG; Start 11/04/18 at 14:00 Mupirocin (Bactroban) 1 applic BID TOP Last administered on 11/10/18 09:07; Admin Dose 1 APPLIC; Start 11/05/18 at 12:00 Quetiapine Fumarate (Seroquel) 12.5 mg Q8 PRN GTB AGITATION Last administered on 11/09/18at 23:15; Admin Dose 12.5 MG; Start 11/06/18 at 11:00 Diphenhydramine HCl (Benadryl) 25 mg Q6H PRN IV ITCHING Last administered on 11/10/18at 10:17; Admin Dose 25 MG; Start 11/06/18 at 18:00 Famotidine (Pepcid) 20 mg BID GTB Last administered on 11/10/18at 09:06; Admin Dose 20 MG; Start 11/07/18 at 09:00 Vancomycin HCl 250 ml @ 125 mls/hr Q8H IVPB Last administered on 11/10/18 09:02; Admin Dose 125 MLS/HR; Start 11/07/18 at 09:00 NORMAN LEAL MD November 10, 2018 11:54
--- NOTE | 2018-11-10 12:10 | CONS ---
Assessment/Plan Assessment/Plan Hospital Course (Demo Recall) IMPRESSION: 1. Positive troponin with uptrending consistent with non-ST elevation myocardial infarction-Echo EF 50-55 11/03 2. Abnormal electrocardiogram with incomplete right bundle branch block. 3. Tachycardia, mild. 4. Chronic respiratory failure, status post tracheostomy. 5. Dysphagia, status post G-tube. 6. History of subarachnoid hemorrhage. 7. History of ventriculoperitoneal shunt. 8. 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 Recc: -Tele -Continue asa/statin -Continue BB -Continue current lovenox dose eventhough creatnine has improved as patient troponin decreasing and has h/o SAH/COREMAKER BENCH shunt -Continue to trend cardiac enzymes which are downtrended -would continue to monitor for occult arrythmia(AF) -F/U hypercoag w/u -For JAKE today Consultation Date/Type/Reason Admit Date/Time November 03, 2018 at 10:30 Initial Consult Date 11/04/18 Type of Consult Cardiology Reason for Consultation nstemi Requesting Provider: BRANDT RAMÍREZ Date/Time of Note DATE: 11/10/18 TIME: 12:09 Exam/Review of Systems Vital Signs Vitals Vital Signs Date Temp Pulse Resp B/P (MAP) Pulse Ox O2 O2 Flow FiO2 Time Delivery Rate 11/10/18 97.7 65 17 132/85 97 11:54 (101) 11/10/18 Mechanical 10:00 Ventilator 11/09/18 30 17:41 Intake and Output 11/09/18 11/09/18 11/10/18 1515:00 23:00 07:00 IntakeIntake Total 250 ml OutputOutput Total 1100 ml BalanceBalance -850 ml Exam Exam Review of Systems: CONSTITUTIONAL: No fevers, chills. PULMONARY: No sob CARDIOVASCULAR: No chest pain/palpitations GASTROINTESTINAL: No nausea/vomiting. GENITOURINARY: No hematuria/dysuria. MUSCULOSKELETAL: No myagias/arthalgias. PSYCHIATRIC: The patient denies depression. NEUROLOGIC: No weakness Constitutional: other (encephalopathic) Psych: no complaints Head: normocephalic ENMT: mucosa pink and moist Neck: other (trached) Respiratory: clear to auscultation Cardiovascular: regular rate and rhythm Gastrointestinal: soft, non-tender Musculoskeletal: muscle tone (normal) Extremities: edema (none) Neurological: confused Labs Result Diagram: 11/10/18 0541 11/10/18 0541 Results 24hrs Laboratory Tests Test 11/10/18 05:41 White Blood Count 12.8 #H Red Blood Count 4.12 L Hemoglobin 12.8 L Hematocrit 38.8 L Mean Corpuscular Volume 94.2 Mean Corpuscular Hemoglobin 31.1 Mean Corpuscular Hemoglobin Concent 33.0 Red Cell Distribution Width 12.7 Platelet Count 257 Mean Platelet Volume 9.1 Immature Granulocytes % 1.500 H Neutrophils % 76.8 Lymphocytes % 11.5 L Monocytes % 7.3 Eosinophils % 2.4 Basophils % 0.5 Nucleated Red Blood Cells % 0.0 Immature Granulocytes # 0.190 H Neutrophils # 9.8 H Lymphocytes # 1.5 Monocytes # 0.9 Eosinophils # 0.3 Basophils # 0.1 Nucleated Red Blood Cells # 0.0 Sodium Level 146 H Potassium Level 3.9 Chloride Level 106 Carbon Dioxide Level 33 H Anion Gap 7 Blood Urea Nitrogen 5 L Creatinine 0.67 Est Glomerular Filtrat Rate mL/min > 60 Glucose Level 83 Calcium Level 8.8 Medications Medications Current Medications Naloxone HCl (Narcan) 1 mg Q2M PRN IV LETHARGY Last administered on 11/03/18at 07:19; Admin Dose 1 MG; Start 11/03/18 at 07:00 IV Flush (NS 3 ml) 3 ml PER PROTOCOL IV ; Start 11/03/18 at 12:00 Ondansetron HCl (Zofran Inj) 4 mg Q6H PRN IV NAUSEA/VOMITING Last administered on 11/07/18at 17:46; Admin Dose 4 MG; Start 11/03/18 at 12:00 Acetaminophen (Tylenol Tab) 650 mg Q6H PRN PO .PAIN 1-3 OR TEMP Last ad ministered on 11/10/18at 10:18; Admin Dose 650 MG; Start 11/03/18 at 12:00 Acetaminophen/ Hydrocodone Bitart ([place] (5/325)) 1 tab Q6H PRN PO .MOD PAIN 4- 6 Last administered on 11/09/18at 00:29; Admin Dose 1 TAB; Start 11/03/18 at 12:00 Docusate Sodium (Colace) 100 mg Q12H PRN PO .CONSTIPATION; Start 11/03/18 at 12:00 Magnesium Hydroxide (Milk Of Mag) 30 ml DAILY PRN PO .CONSTIPATION Last adminis tered on 11/07/18at 17:47; Admin Dose 30 ML; Start 11/03/18 at 12:00 Albuterol/ Ipratropium (Duoneb) 3 ml Q4H RESP THERAPY PRN HHN SHORTNESS OF BREATH Last administered on 11/06/18at 05:07; Admin Dose 3 ML; Start 11/03/18 at 12:00 Vancomycin HCl (Vanco Iv Per Pharmacy) VANCOMYCIN PER PHARMACY NOTE XX ; Start 11/03/18 at 12:00 Hydralazine HCl (Apresoline) 10 mg Q6H PRN IV ELEVATED BLOOD PRESSURE; Start 11/03/18 at 12:00 Nitroglycerin (Nitroglycerin (Sl Tab) 0.4 Mg) 1 tab Q5M PRN SL ANGINA; Start 11/03/18 at 12:00 Aspirin (Ecotrin) 325 mg DAILY PO Last administered on 11/09/18at 09:08; Admin Dose 325 MG; Start 11/04/18 at 09:00 Ascorbic Acid (Vitamin C) 500 mg DAILY GTB Last administered on 11/10/18 09:06; Admin Dose 500 MG; Start 11/04/18 at 09:00 Atorvastatin Calcium (Lipitor) 80 mg QHS GTB Last administered on 11/09/18at 23:13; Admin Dose 80 MG; Start 11/03/18 at 21:00 Bisacodyl (Dulcolax Supp) 10 mg DAILY PRN [place] CONSTIPATION; Start 11/03/18 at 12:00 Chlorhexidine Gluconate (Peridex) 15 ml Q12H MM Last administered on 11/10/18at 00:00; Admin Dose 15 ML; Start 11/03/18 at 12:00 Clonidine (Catapres) 0.2 mg Q8H PRN GTB SBP ABOVE 160; Start 11/03/18 at 12:00 Valproate Sodium (Depakene Liquid Cup) 500 mg BID GTB Last administered on 11/10/18 09:04; Admin Dose 500 MG; Start 11/03/18 at 21:00 Zinc Sulfate (Zinc Sulfate) 220 mg DAILY GTB Last administered on 11/10/18 09:05; Admin Dose 220 MG; Start 11/04/18 at 09:00 Lactobacillus Acidophilus/ Rhamnosus (Culturelle) 1 cap DAILY PO Last administered on 11/10/18 09:05; Admin Dose 1 CAP; Start 11/04/18 at 09:00 Multivitamins/ Minerals (Theragran-M) 1 tab DAILY PO Last administered on 11/09/18 09:07; Admin Dose 1 TAB; Start 11/04/18 at 09:00 Enoxaparin Sodium (Lovenox) 70 mg DAILY SC Last administered on 11/09/18 09: 28; Admin Dose 70 MG; Start 11/04/18 at 09:00 Metoprolol Tartrate (Lopressor) 25 mg BID PO Last administered on 11/10/18 09:06; Admin Dose 25 MG; Start 11/03/18 at 21:00 Gabapentin (Neurontin) 600 mg BID GTB Last administered on 11/10/18 09:05; Admin Dose 600 MG; Start 11/04/18 at 12:00 Risperidone (Risperdal) 2 mg DAILY GTB Last administered on 11/10/18 09:06; Admin Dose 2 MG; Start 11/04/18 at 14:00 Mupirocin (Bactroban) 1 applic BID TOP Last administered on 11/10/18 09:07; Admin Dose 1 APPLIC; Start 11/05/18 at 12:00 Quetiapine Fumarate (Seroquel) 12.5 mg Q8 PRN GTB AGITATION Last administered on 11/09/18 23:15; Admin Dose 12.5 MG; Start 11/06/18 at 11:00 Diphenhydramine HCl (Benadryl) 25 mg Q6H PRN IV ITCHING Last administered on 11/10/18 10:17; Admin Dose 25 MG; Start 11/06/18 at 18:00 Famotidine (Pepcid) 20 mg BID GTB Last administered on 11/10/18 09:06; Admin Dose 20 MG; Start 11/07/18 at 09:00 Vancomycin HCl 250 ml @ 125 mls/hr Q8H IVPB Last administered on 11/10/18 09:02; Admin Dose 125 MLS/HR; Start 11/07/18 at 09:00 NORMAN KESSLER November 10, 2018 12:10
[2018-11-10] MEDS: CHLORHEXIDINE GLUCONATE 15 ML UD CUP MM SCH ×2 (12:23)
[2018-11-10] MEDS ORDERED: MIDAZOLAM 1 MG/ML 2 ML INJ ONE (13:05)
[2018-11-10] MEDS ORDERED: FENTAnyl 50 MCG/ML VIAL ONE (13:05)
--- NOTE | 2018-11-10 20:21 | CARRPT ---
DATE OF PROCEDURE: 11/10/2018 REASON FOR TRANSESOPHAGEAL ECHOCARDIOGRAM: Assess source of embolus. REQUESTING PHYSICIAN: Norman Payan MD, from the hospitalist service and neurology service. BRIEF HISTORY AND HOSPITAL COURSE: Mr. Churchill is a 43-year-old male with history of chronic respiratory failure status post trach, dysphagia status post G-tube, who presented with altered mental state who underwent a CT revealing a stroke possibly from an embolic source. Therefore, he has been requested to do transesophageal echo to assess for intracardiac source of thrombus. DESCRIPTION OF PROCEDURE: After informed consent was obtained, the patient was brought to the [facility] cardiac catheterization holding room where he was connected to the vent and received Versed and fentanyl conscious sedation under my direction with the patient's respiratory therapist at the bedside. The patient's trach cuff was released and the patient had a bite block placed in the mouth and a transesophageal echo probe was intubated to the patient's esophagus and using a multiplanar imaging and color flow Doppler interrogation, the patient's intracardiac structures were adequately interrogated. At this time, the patient's descending, transverse and ascending aorta were interrogated. The probe was removed. The patient was allowed to awake from his anesthetized, completing the procedure and there were no immediate complications. FINDINGS: 1. No definite left atrial or left atrial appendage thrombus. Left atrial appendage velocity approximately 40 cm per second but it should be noted that there was spontaneous contrast noted in the left atrial appendage. 2. Normal-appearing aortic valve apparatus, trace regurgitation. No vegetations or other intracardiac source of thrombus or vegetation noted on this valve. 3. Normal-appearing mitral valve apparatus with mild mitral regurgitation and no vegetations or other source of thrombus noted associated with this valve apparatus. 4. Pulmonic apparatus somewhat poorly visualized, but no definite findings of vegetations or other intracardiac mass or thrombus noted with this valve apparatus, no pulmonic regurgitation. 5. Normal-appearing tricuspid valve apparatus with trace to mild tricuspid regurgitation and no definite findings of thrombus and/or vegetations noted associated with this valve apparatus. 6. Normal left ventricular ejection fraction with no interventricular source of thrombus noted. 7. Color flow Doppler interrogation of the interatrial septum as well as, as stated, agitated contrast saline injection did not identify a patent foramen ovale or other interatrial septal defects. 8. Mild atherosclerotic plaquing in the patient's proximal descending, transverse and ascending aorta with no significant atherosclerotic plaquing. IMPRESSION: 1. No definite findings of intracardiac source of embolus found on this transesophageal study. 2. It should be noted that the patient did have findings of spontaneous contrast in the left atrial and left atrial appendage which could be a predictor for slow flow in these areas and, therefore, increased risk for thrombus formation such as in the setting of atrial fibrillation. RECOMMENDATIONS: At this time, would assess for alternative sources of thromboembolism including occult cardiac arrhythmia and/or for assessing the patient's aorta. Dictated By: NORMAN KINGSTON/PRISCILLA Conf#: [id number] DID#: [id number] [id number]
[2018-11-10] MEDS: ATORVASTATIN 40 MG TAB GTB SCH (20:33)
[2018-11-10] MEDS: QUETIAPINE 25 MG TAB GTB PRN (20:54)
[2018-11-10] MEDS ORDERED: VANCOMYCIN 750 MG (PMX) 250 ML IVPB SCH (23:00)
[2018-11-10] MEDS: VANCOMYCIN 750 MG (PMX) 250 ML IVPB SCH (23:24)
[2018-11-11] VITALS (22 sets, daily range): BP systolic 96–173; BP diastolic 53–99; PULSE 50–85; RESP 14–20
[2018-11-11] MEDS: CHLORHEXIDINE GLUCONATE 15 ML UD CUP MM SCH ×2 (00:10→11:47)
[2018-11-11] MEDS: HYDROCODONE/APAP (5/325) TAB PO PRN (03:28)
[2018-11-11] MEDS: VANCOMYCIN 750 MG (PMX) 250 ML IVPB SCH ×2 (06:05→15:23)
[2018-11-11] MEDS: ASCORBIC ACID 500 MG TAB GTB SCH (08:44)
[2018-11-11] MEDS: GABAPENTIN 300 MG CAP GTB SCH ×2 (08:44→20:27)
[2018-11-11] MEDS: VALPROIC ACID LIQUID CUP 250 MG/5 ML CUP GTB SCH ×2 (08:44→20:26)
[2018-11-11] MEDS: ZINC SULFATE 220 MG CAP GTB SCH (08:44)
[2018-11-11] MEDS: LACTOBACILLUS RHAMNOSUS CAP PO SCH (08:44)
[2018-11-11] MEDS: ASPIRIN (EC) 325 MG TAB PO SCH (08:45)
[2018-11-11] MEDS: RISPERIDONE 2 MG TAB GTB SCH (08:45)
[2018-11-11] MEDS: METOPROLOL 25 MG TAB PO SCH ×2 (08:45→20:28)
[2018-11-11] MEDS: MUPIROCIN 2% 22 GM OINT TOP SCH ×2 (08:46→20:28)
[2018-11-11] MEDS: ENOXAPARIN 80 MG/0.8 ML SYG SC SCH (08:52)
--- NOTE | 2018-11-11 10:22 | PN ---
DATE: 11/11/2018 SUBJECTIVE: The patient remains agitated, confused. No other acute events noted. OBJECTIVE: VITAL SIGNS: Blood pressure is 124/80, respirations 18, pulse 81, temperature 97.6. HEENT: Head is normocephalic. NECK: Supple. HEART: Regular rate. LUNGS: Show diminished breath sounds at the base. ABDOMEN: Soft, nontender to palpation without rebound or guarding. EXTREMITIES: Negative for clubbing, cyanosis, no edema. DERMATOLOGIC: No rashes. MUSCULOSKELETAL: No joint effusion. NEUROLOGIC: No change in exam. MEDICATIONS: Reviewed. LABORATORY DATA: Reviewed. ASSESSMENT AND PLAN: 1. Nonoliguric acute kidney injury with unknown baseline creatinine. Etiology of acute kidney injur y is secondary to hemodynamics. Renal function is improved. Continue to monitor. 2. Hypernatremia. Continue free water flushes. Sodium levels are improved. 3. Anemia. Monitor hemoglobin and hematocrit levels. 4. Mineral bone disorder. Monitor calcium and phosphorus levels. 5. Ventilator-dependent respiratory failure. Vent settings have been reviewed. Continue to monitor . 6. Acute cerebrovascular accident. Etiology is likely embolic in nature. Continue current medical management. Follow up with neurology. The patient had a hypercoagulable workup. The patient is pen ding also JAKE to evaluate vegetations. 7. Hematuria. Etiology is likely due to [place] trauma. Continue to monitor. 8. Non-ST elevation myocardial infarction. Continue medical management. Follow up with cardiology. 9. Hypertension. Continue current blood pressure regimen. 10. Sepsis, bacteremia. The patient is completing antibiotic course. 11. Arrhythmia. Continue to monitor. 12. History of ventriculoperitoneal shunt. 13. Encephalopathy, etiology is toxic metabolic secondary to cerebrovascular accident. Continue to monitor. Dictated By: RENEE KEENAN DO NR/NTS Conf#: [id number] DID#: [id number] CC: BRANDT RAMÍREZ; ISA CRUM;*End*
[2018-11-11] MEDS: MULTIVITAMINS/MINERALS TAB PO SCH (11:47)
[2018-11-11] MEDS: FAMOTIDINE 20 MG TAB GTB SCH ×2 (11:47→20:27)
--- NOTE | 2018-11-11 12:20 | CONS ---
Assessment/Plan Assessment/Plan Assessment/Plan (Recall) 43 yo M with multiple comorbidities who presents for evaluation of ams in the context of respiratory sx. 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 for which neurology is consulted. The clinical picture raises concern for a cardioembolic process. Vasculitis is less likely. Echo (TTE) is unrevealing. JAKE was without evidence of intracardiac thrombus, though notable for spontaneous contrast and possible slow flow in the LA CTA H/N was only notable for stable L MARNI aneurysm coil LDL 16, ESR 57, RPR neg, HIV neg Protein C and S low P: Cont ASA for secondary stroke prevention; LDL is at goal Recommend 30 day Holter as outpatient BP and other medical management per primary [place] as able Limit sedating medications where possible PT/OT/ST when able Will follow clinically, to recommend neurologic studies, as necessary Consultation Date/Type/Reason Admit Date/Time November 03, 2018 at 10:30 Type of Consult Neurology Requesting Provider: BRANDT RAMÍREZ Date/Time of Note DATE: 11/11/18 TIME: 12:18 24 HR Interval Summary Free Text/Dictation Continues acute care. S/p JAKE. Exam/Review of Systems Exam Vitals Vital Signs Date Temp Pulse Resp B/P (MAP) Pulse Ox O2 O2 Flow FiO2 Time Delivery Rate 11/11/18 98.7 59 17 132/85 96 11:40 (101) 11/11/18 Mechanical 10:00 Ventilator 11/09/18 30 17:41 Intake and Output 11/10/18 11/10/18 11/11/18 1515:00 23:00 07:00 IntakeIntake Total 250 ml 1350 ml OutputOutput Total 800 ml 700 ml BalanceBalance -550 ml 650 ml Exam PE: Gen Appearance: No Apparent Distress; On 2-pt restraints HEENT: Trached Cardiovascular: Regular rate Abdomen: Soft Extremities: Dry NE: The patient was awake, alert, and mouthing words. Unable to understand d/t trach. The pt was able to follow simple axial and appendicular commands. Cranial nerve examination was limited by mental status. Pupils were equal and reactive to light. There was no afferent pupillary defect. Funduscopic examination was limited. Face was grossly symmetric, w/ present corneal and cough reflexes. Tone was normal. Muscle bulk was normal. I did not see fasciculations. The patient had spontaneous movement of all extremities. Coordination and gait testing was limited by mental status. Arm and leg reflexes were within normal limits and symmetric. Carlson's sign was absent. Plantar responses were flexor. Results Result Diagram: 11/10/18 0541 11/11/18 0522 Results 24hrs Laboratory Tests Test 11/10/18 15:51 11/11/18 05:22 11/11/18 10:30 Vancomycin Level Trough 21.6 *H Sodium Level 142 Potassium Level 3.9 Chloride Level 106 Carbon Dioxide Level 30 Anion Gap 6 Blood Urea Nitrogen 9 Creatinine 0.61 Est Glomerular Filtrat > 60 Rate mL/min Glucose Level 112 Calcium Level 8.7 Phosphorus Level 5.8 H Magnesium Level 2.1 Blood Gas Specimen Source Blood arterial Arterial Blood Date Drawn 11/11/2018 10:40:55 AM Arterial Blood pH 7.421 (Temp corrected) Arterial Blood pCO2 43.6 (Temp correct) Arterial Blood pO2 101.3 H (Temp corrected) Arterial Blood HCO3 27.7 H Arterial Blood Base Excess 2.8 Arterial Blood 97.4 Oxygen Saturation Berny Test ACCEPTAB Arterial Blood Gas Right Radial Puncture Site Arterial 0.3 Blood Carboxyhemoglobin Arterial Blood 0.3 Methemoglobin Blood Gas A-a O2 61.4 H Differential Oxyhemoglobin Percent 96.8 Blood Gas Temperature 37.0 Blood Gas Actual 30 Respiration Rate Blood Gas Modality VENT - CPAP FiO2 30.0 Blood Gas Low PEEP Setting 5.0 Blood Gas Pressure Support 10 Blood Gas Notified Whom TM Blood Gas Notified Time 11/11/2018 10:50:37 AM Medications Medication Current Medications Naloxone HCl (Narcan) 1 mg Q2M PRN IV LETHARGY Last administered on 11/03/18at 07:19; Admin Dose 1 MG; Start 11/03/18 at 07:00 IV Flush (NS 3 ml) 3 ml PER PROTOCOL IV ; Start 11/03/18 at 12:00 Ondansetron HCl (Zofran Inj) 4 mg Q6H PRN IV NAUSEA/VOMITING Last administered on 11/07/18at 17:46; Admin Dose 4 MG; Start 11/03/18 at 12:00 Acetaminophen (Tylenol Tab) 650 mg Q6H PRN PO .PAIN 1-3 OR TEMP Last administered on 11/10/18at 10:18; Admin Dose 650 MG; Start 11/03/18 at 12:00 Acetaminophen/ Hydrocodone Bitart ([place] (5/325)) 1 tab Q6H PRN PO .MOD PAIN 4- 6 Last administered on 11/11/18 03:28; Admin Dose 1 TAB; Start 11/03/18 at 12:00 Docusate Sodium (Colace) 100 mg Q12H PRN PO .CONSTIPATION; Start 11/03/18 at 12:00 Magnesium Hydroxide (Milk Of Mag) 30 ml DAILY PRN PO .CONSTIPATION Last administered on 11/07/18 17:47; Admin Dose 30 ML; Start 11/03/18 at 12:00 Albuterol/ Ipratropium (Duoneb) 3 ml Q4H RESP THERAPY PRN HHN SHORTNESS OF BREATH Last administered on 11/06/18 05:07; Admin Dose 3 ML; Start 11/03/18 at 12:00 Vancomycin HCl (Vanco Iv Per Pharmacy) VANCOMYCIN PER PHARMACY NOTE XX ; Start 11/03/18 at 12:00 Hydralazine HCl (Apresoline) 10 mg Q6H PRN IV ELEVATED BLOOD PRESSURE; Start 11/03/18 at 12:00 Nitroglycerin (Nitroglycerin (Sl Tab) 0.4 Mg) 1 tab Q5M PRN SL ANGINA; Start 11/03/18 at 12:00 Aspirin (Ecotrin) 325 mg DAILY PO Last administered on 11/11/18 08:45; Admin Dose 325 MG; Start 11/04/18 at 09:00 Ascorbic Acid (Vitamin C) 500 mg DAILY GTB Last administered on 11/11/18 08:44; Admin Dose 500 MG; Start 11/04/18 at 09:00 Atorvastatin Calcium (Lipitor) 80 mg QHS GTB Last administered on 11/10/18 20:33; Admin Dose 80 MG; Start 11/03/18 at 21:00 Bisacodyl (Dulcolax Supp) 10 mg DAILY PRN [place] CONSTIPATION; Start 11/03/18 at 12:00 Chlorhexidine Gluconate (Peridex) 15 ml Q12H MM Last administered on 11/11/18 11:47; Admin Dose 15 ML; Start 11/03/18 at 12:00 Clonidine (Catapres) 0.2 mg Q8H PRN GTB SBP ABOVE 160; Start 11/03/18 at 12:00 Valproate Sodium (Depakene Liquid Cup) 500 mg BID GTB Last administered on 11/11/18 08:44; Admin Dose 500 MG; Start 11/03/18 at 21:00 Zinc Sulfate (Zinc Sulfate) 220 mg DAILY GTB Last administered on 11/11/18 08:44; Admin Dose 220 MG; Start 11/04/18 at 09:00 Lactobacillus Acidophilus/ Rhamnosus (Culturelle) 1 cap DAILY PO Last administered on 11/11/18 08:44; Admin Dose 1 CAP; Start 11/04/18 at 09:00 Multivitamins/ Minerals (Theragran-M) 1 tab DAILY PO Last administered on 11/11/18 11:47; Admin Dose 1 TAB; Start 11/04/18 at 09:00 Enoxaparin Sodium (Lovenox) 70 mg DAILY SC Last administered on 11/11/18 08:52; Admin Dose 70 MG; Start 11/04/18 at 09:00 Metoprolol Tartrate (Lopressor) 25 mg BID PO Last administered on 11/11/18 08:45; Admin Dose 25 MG; Start 11/03/18 at 21:00 Gabapentin (Neurontin) 600 mg BID GTB Last administered on 11/11/18 08:44; A dmin Dose 600 MG; Start 11/04/18 at 12:00 Risperidone (Risperdal) 2 mg DAILY GTB Last administered on 11/11/18 08:45; Admin Dose 2 MG; Start 11/04/18 at 14:00 Mupirocin (Bactroban) 1 applic BID TOP Last administered on 11/11/18 08:46; Admin Dose 1 APPLIC; Start 11/05/18 at 12:00 Quetiapine Fumarate (Seroquel) 12.5 mg Q8 PRN GTB AGITATION Last administered on 11/10/18 20:54; Admin Dose 12.5 MG; Start 11/06/18 at 11:00 Diphenhydramine HCl (Benadryl) 25 mg Q6H PRN IV ITCHING Last administered on 11/10/18 10:17; Admin Dose 25 MG; Start 11/06/18 at 18:00 Famotidine (Pepcid) 20 mg BID GTB Last administered on 5/31/19at 11:47; Admin Dose 20 MG; Start 11/07/18 at 09:00 Vancomycin/Sodium Chloride 250 ml @ 125 mls/hr Q8H IVPB Last administered on 11/11/18at 06:05; Admin Dose 125 MLS/HR; Start 11/10/18 at 23:00 MOY BENJAMIN NP November 11, 2018 12:20
--- NOTE | 2018-11-11 14:25 | PN ---
Date/Time of Note Date/Time of Note DATE: 11/11/18 TIME: 14:18 Assessment/Plan VTE Prophylaxis Risk score (from Ns)>0 risk: 5 SCD applied (from Nsg): Yes Pharmacological prophylaxis: LMWH Lines/Catheters IV Catheter Type (from [facility]): Peripheral IV Assessment/Plan Hospital Course 43-year-old male with history of subarachnoid hemorrhage with subsequent DAY PORTER shunt, tracheostomy placement, G-tube placement, hypertension, high cholesterol, depression, gastroesophageal reflux disease, who comes in from outside facility with signs of pneumonia, elevated troponins, slight lactic acidosis and renal insufficiency. # Embolic stroke - brain MRI findings of infarct -Continue antibiotics for bacteremia. -Per neurology team, hold off on benzos, continue Seroquel as needed, Also follow-up hypercoagulable work-up panel, continue aspirin. 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 pain and fevers. -Speech therapy has recommended initiation of oral feeding, hold G-tube feeds #Hematuria - Hematuria noted 11/08 - Patient was agitated, may have pulled at his Higgins. Now on restraints. - Will closely monitor for a few days. If Higgins trauma, expect it to slowly clear up. If it worsens will call urology. # Elevated troponins - again signs of non-ST elevation myocardial infarction. - continue Lovenox 1 mg/kg daily per cardiology recommendations -Continue high dose aspirin and Lipitor, Morphine p.r.n., nitroglycerin p.r.n. # Renal insufficiency-resolving now, creatinine is presently normal -Monitor, follow-up recommendations from renal consult. - Continue IV fluids. # History of hypertension. Again, blood pressure is presently stable. - Continue to monitor for now. He is on hydralazine p.r.n. # History of high cholesterol. - Continue Lipitor. # Tracheostomy placement - Patient awake and breathing comfortably, wean off ventilator # Deep venous thrombosis prophylaxis- Lovenox. # History of gastroesophageal reflux disease- H2 kendall. DC planning: Follow-up with neurology and cardiology recommendations, wean off vent, initiate oral feeds today Result Diagram: 11/10/18 0541 11/11/18 0522 Results 24hrs Laboratory Tests Test 11/10/18 15:51 11/11/18 05:22 11/11/18 10:30 11/11/18 12:29 Vancomycin Level 21.6 *H Trough Sodium Level 142 Potassium Level 3.9 Chloride Level 106 Carbon Dioxide 30 Level Anion Gap 6 Blood Urea 9 Nitrogen Creatinine 0.61 Est Glomerular > 60 Filtrat Rate mL/min Glucose Level 112 Calcium Level 8.7 Phosphorus Level 5.8 H Magnesium Level 2.1 Blood Gas Blood arterial Specimen Source Arterial Blood 11/11/2018 10:40 Date Drawn :55 AM Arterial Blood 7.421 pH (Temp corrected) Arterial Blood 43.6 pCO2 (Temp correct) Arterial Blood 101.3 H pO2 (Temp corrected) Arterial Blood 27.7 H HCO3 Arterial Blood 2.8 Base Excess Arterial Blood 97.4 Oxygen Saturatio n Berny Test ACCEPTAB Arterial Blood Right Radial Gas Puncture Site Arterial 0.3 Blood Carboxyhem oglobin Arterial Blood 0.3 Methemoglobin Blood Gas A-a O2 61.4 H Differential Oxyhemoglobin 96.8 Percent Blood Gas 37.0 Temperature Blood Gas Actual 30 Respiration Rate Blood Gas VENT - CPAP Modality FiO2 30.0 Blood Gas Low 5.0 PEEP Setting Blood Gas 10 Pressure Support Blood Gas TM Notified Whom Blood Gas 11/11/2018 10:50 Notified Time :37 AM Lab Scanned REFERENCE LAB Report Subjective 24 Hr Interval Summary Subjective hx not possible: pt non-verbal Exam/Review of Systems Exam Vitals Vital Signs Date Temp Pulse Resp B/P (MAP) Pulse Ox O2 O2 Flow FiO2 Time Delivery Rate 11/11/18 59 13:03 11/11/18 98.7 17 132/85 96 11:40 (101) 11/11/18 Mechanical 10:00 Ventilator 11/09/18 30 17:41 Intake and Output 11/10/18 11/10/18 11/11/18 1414:59 22:59 06:59 IntakeIntake Total 250 ml 1350 ml OutputOutput Total 800 ml 700 ml BalanceBalance -550 ml 650 ml Constitutional: non-verbal Respiratory: clear to auscultation Cardiovascular: regular rate and rhythm Gastrointestinal: soft; No distended Musculoskeletal: nl extremities to inspection Results Results 24hrs Laboratory Tests Test 11/10/18 15:51 11/11/18 05:22 11/11/18 10:30 11/11/18 12:29 Vancomycin Level 21.6 *H Trough Sodium Level 142 Potassium Level 3.9 Chloride Level 106 Carbon Dioxide 30 Level Anion Gap 6 Blood Urea 9 Nitrogen Creatinine 0.61 Est Glomerular > 60 Filtrat Rate mL/min Glucose Level 112 Calcium Level 8.7 Phosphorus Level 5.8 H Magnesium Level 2.1 Blood Gas Blood arterial Specimen Source Arterial Blood 11/11/2018 10:40 Date Drawn :55 AM Arterial Blood 7.421 pH (Temp corrected) Arterial Blood 43.6 pCO2 (Temp correct) Arterial Blood 101.3 H pO2 (Temp corrected) Arterial Blood 27.7 H HCO3 Arterial Blood 2.8 Base Excess Arterial Blood 97.4 Oxygen Saturatio n Berny Test ACCEPTAB Arterial Blood Right Radial Gas Puncture Site Arterial 0.3 Blood Carboxyhem oglobin Arterial Blood 0.3 Methemoglobin Blood Gas A-a O2 61.4 H Differential Oxyhemoglobin 96.8 Percent Blood Gas 37.0 Temperature Blood Gas Actual 30 Respiration Rate Blood Gas VENT - CPAP Modality FiO2 30.0 Blood Gas Low 5.0 PEEP Setting Blood Gas 10 Pressure Support Blood Gas TM Notified Whom Blood Gas 11/11/2018 10:50 Notified Time :37 AM Lab Scanned REFERENCE LAB Report Medications Medication Current Medications Naloxone HCl (Narcan) 1 mg Q2M PRN IV LETHARGY Last administered on 11/03/18 07:19; Admin Dose 1 MG; Start 11/03/18 at 07:00 IV Flush (NS 3 ml) 3 ml PER PROTOCOL IV ; Start 11/03/18 at 12:00 Ondansetron HCl (Zofran Inj) 4 mg Q6H PRN IV NAUSEA/VOMITING Last administered on 11/07/18at 17:46; Admin Dose 4 MG; Start 11/03/18 at 12:00 Acetaminophen (Tylenol Tab) 650 mg Q6H PRN PO .PAIN 1-3 OR TEMP Last administered on 11/10/18 10:18; Admin Dose 650 MG; Start 11/03/18 at 12:00 Acetaminophen/ Hydrocodone Bitart ([place] (5/325)) 1 tab Q6H PRN PO .MOD PAIN 4- 6 Last administered on 11/11/18 03:28; Admin Dose 1 TAB; Start 11/03/18 at 12:00 Docusate Sodium (Colace) 100 mg Q12H PRN PO .CONSTIPATION; Start 11/03/18 at 12:00 Magnesium Hydroxide (Milk Of Mag) 30 ml DAILY PRN PO .CONSTIPATION Last administered on 11/07/18at 17:47; Admin Dose 30 ML; Start 11/03/18 at 12:00 Albuterol/ Ipratropium (Duoneb) 3 ml Q4H RESP THERAPY PRN HHN SHORTNESS OF BREATH Last administered on 11/06/18 05:07; Admin Dose 3 ML; Start 11/03/18 at 12:00 Vancomycin HCl (Vanco Iv Per Pharmacy) VANCOMYCIN PER PHARMACY NOTE XX ; Start 11/03/18 at 12:00 Hydralazine HCl (Apresoline) 10 mg Q6H PRN IV ELEVATED BLOOD PRESSURE; Start 11/03/18 at 12:00 Nitroglycerin (Nitroglycerin (Sl Tab) 0.4 Mg) 1 tab Q5M PRN SL ANGINA; Start 11/03/18 at 12:00 Aspirin (Ecotrin) 325 mg DAILY PO Last administered on 11/11/18 08:45; Admin Dose 325 MG; Start 11/04/18 at 09:00 Ascorbic Acid (Vitamin C) 500 mg DAILY GTB Last administered on 11/11/18 08:44; Admin Dose 500 MG; Start 11/04/18 at 09:00 Atorvastatin Calcium (Lipitor) 80 mg QHS GTB Last administered on 11/10/18 20:33; Admin Dose 80 MG; Start 11/03/18 at 21:00 Bisacodyl (Dulcolax Supp) 10 mg DAILY PRN [place] CONSTIPATION; Start 11/03/18 at 12:00 Chlorhexidine Gluconate (Peridex) 15 ml Q12H MM Last administered on 11/11/18at 11:47; Admin Dose 15 ML; Start 11/03/18 at 12:00 Clonidine (Catapres) 0.2 mg Q8H PRN GTB SBP ABOVE 160; Start 11/03/18 at 12:00 Valproate Sodium (Depakene Liquid Cup) 500 mg BID GTB Last administered on 11/11/18 08:44; Admin Dose 500 MG; Start 11/03/18 at 21:00 Zinc Sulfate (Zinc Sulfate) 220 mg DAILY GTB Last administered on 11/11/18 08:44; Admin Dose 220 MG; Start 11/04/18 at 09:00 Lactobacillus Acidophilus/ Rhamnosus (Culturelle) 1 cap DAILY PO Last adminis tered on 11/11/18 08:44; Admin Dose 1 CAP; Start 11/04/18 at 09:00 Multivitamins/ Minerals (Theragran-M) 1 tab DAILY PO Last administered on 11/11/18 11:47; Admin Dose 1 TAB; Start 11/04/18 at 09:00 Enoxaparin Sodium (Lovenox) 70 mg DAILY SC Last administered on 11/11/18 08:52; Admin Dose 70 MG; Start 11/04/18 at 09:00 Metoprolol Tartrate (Lopressor) 25 mg BID PO Last administered on 11/11/18 08:45; Admin Dose 25 MG; Start 11/03/18 at 21:00 Gabapentin (Neurontin) 600 mg BID GTB Last administered on 11/11/18 08:44; Admin Dose 600 MG; Start 11/04/18 at 12:00 Risperidone (Risperdal) 2 mg DAILY GTB Last administered on 11/11/18 08:45; Admin Dose 2 MG; Start 11/04/18 at 14:00 Mupirocin (Bactroban) 1 applic BID TOP Last administered on 11/11/18 08:46; Admin Dose 1 APPLIC; Start 11/05/18 at 12:00 Quetiapine Fumarate (Seroquel) 12.5 mg Q8 PRN GTB AGITATION Last administered on 11/10/18 20:54; Admin Dose 12.5 MG; Start 11/06/18 at 11:00 Diphenhydramine HCl (Benadryl) 25 mg Q6H PRN IV ITCHING Last administered on 11/10/18 10:17; Admin Dose 25 MG; Start 11/06/18 at 18:00 Famotidine (Pepcid) 20 mg BID GTB Last administered on 11/11/18 11:47; Admin Dose 20 MG; Start 11/07/18 at 09:00 Vancomycin/Sodium Chloride 250 ml @ 125 mls/hr Q8H IVPB Last administered on 11/11/18 06:05; Admin Dose 125 MLS/HR; Start 11/10/18 at 23:00 JAMES BRIGGS November 11, 2018 14:25
--- NOTE | 2018-11-11 14:53 | CONS ---
Assessment/Plan Assessment/Plan Hospital Course (Demo Recall) IMPRESSION: 1. Positive troponin with uptrending consistent with non-ST elevation myocardial infarction-Echo EF 50-55 11/03 2. Abnormal electrocardiogram with incomplete right bundle branch block. 3. Tachycardia, mild. 4. Chronic respiratory failure, status post tracheostomy. 5. Dysphagia, status post G-tube. 6. History of subarachnoid hemorrhage. 7. History of ventriculoperitoneal shunt. 8. 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 s/p JAKE 11/10 with no definite findings for source of embolus but spontaneous contrast in LA/SENAIT which is a marker for low flow/stassis and thus incrased risk for development of thrombus(seen with low EF/AF, etc) Recc: -Tele -Continue asa/statin -Continue BB -Continue current lovenox dose eventhough creatnine has improved as patient troponin decreasing and has h/o SAH/DRIVER COURIER shunt -Continue to trend cardiac enzymes which are downtrended -would continue to monitor for occult arrythmia(AF) -F/U hypercoag w/u Consultation Date/Type/Reason Admit Date/Time November 03, 2018 at 10:30 Initial Consult Date 11/04/18 Type of Consult Cardiology Reason for Consultation Nstemi Requesting Provider: BRANDT RAMÍREZ Date/Time of Note DATE: 11/11/18 TIME: 14:49 Exam/Review of Systems Vital Signs Vitals Vital Signs Date Temp Pulse Resp B/P (MAP) Pulse Ox O2 O2 Flow FiO2 Time Delivery Rate 11/11/18 59 13:03 11/11/18 98.7 17 132/85 96 11:40 (101) 11/11/18 Mechanical 10:00 Ventilator 11/09/18 30 17:41 Intake and Output 11/10/18 11/10/18 11/11/18 1515:00 23:00 07:00 IntakeIntake Total 250 ml 1350 ml OutputOutput Total 800 ml 700 ml BalanceBalance -550 ml 650 ml Exam Exam Review of Systems: CONSTITUTIONAL: No fevers, chills. PULMONARY: No sob CARDIOVASCULAR: No chest pain/palpitations GASTROINTESTINAL: No nausea/vomiting. GENITOURINARY: No hematuria/dysuria. MUSCULOSKELETAL: No myagias/arthalgias. PSYCHIATRIC: The patient denies depression. NEUROLOGIC: No weakness Constitutional: other (encephalopathic) Psych: no complaints Head: normocephalic ENMT: mucosa pink and moist Neck: supple, jvd Respiratory: diminished breath sounds Cardiovascular: regular rate and rhythm Gastrointestinal: soft, non-tender Musculoskeletal: muscle tone Extremities: edema (none) Neurological: other (No focal deficits) Labs Result Diagram: 11/10/18 0541 11/11/18 0522 Results 24hrs Laboratory Tests Test 11/10/18 15:51 11/11/18 05:22 11/11/18 10:30 11/11/18 12:29 Vancomycin Level 21.6 *H Trough Sodium Level 142 Potassium Level 3.9 Chloride Level 106 Carbon Dioxide 30 Level Anion Gap 6 Blood Urea 9 Nitrogen Creatinine 0.61 Est Glomerular > 60 Filtrat Rate mL/min Glucose Level 112 Calcium Level 8.7 Phosphorus Level 5.8 H Magnesium Level 2.1 Blood Gas Blood arterial Specimen Source Arterial Blood 11/11/2018 10:40 Date Drawn :55 AM Arterial Blood 7.421 pH (Temp corrected) Arterial Blood 43.6 pCO2 (Temp correct) Arterial Blood 101.3 H pO2 (Temp corrected) Arterial Blood 27.7 H HCO3 Arterial Blood 2.8 Base Excess Arterial Blood 97.4 Oxygen Saturatio n Berny Test ACCEPTAB Arterial Blood Right Radial Gas Puncture Site Arterial 0.3 Blood Carboxyhem oglobin Arterial Blood 0.3 Methemoglobin Blood Gas A-a O2 61.4 H Differential Oxyhemoglobin 96.8 Percent Blood Gas 37.0 Temperature Blood Gas Actual 30 Respiration Rate Blood Gas VENT - CPAP Modality FiO2 30.0 Blood Gas Low 5.0 PEEP Setting Blood Gas 10 Pressure Support Blood Gas TM Notified Whom Blood Gas 11/11/2018 10:50 Notified Time :37 AM Lab Scanned REFERENCE LAB Report Medications Medications Current Medications Naloxone HCl (Narcan) 1 mg Q2M PRN IV LETHARGY Last administered on 11/03/18at 07:19; Admin Dose 1 MG; Start 11/03/18 at 07:00 IV Flush (NS 3 ml) 3 ml PER PROTOCOL IV ; Start 11/03/18 at 12:00 Ondansetron HCl (Zofran Inj) 4 mg Q6H PRN IV NAUSEA/VOMITING Last administered on 11/07/18at 17:46; Admin Dose 4 MG; Start 11/03/18 at 12:00 Acetaminophen (Tylenol Tab) 650 mg Q6H PRN PO .PAIN 1-3 OR TEMP Last administered on 11/10/18 10:18; Admin Dose 650 MG; Start 11/03/18 at 12:00 Acetaminophen/ Hydrocodone Bitart ([place] (5/325)) 1 tab Q6H PRN PO .MOD PAIN 4- 6 Last administered on 11/11/18 03:28; Admin Dose 1 TAB; Start 11/03/18 at 12:00 Docusate Sodium (Colace) 100 mg Q12H PRN PO .CONSTIPATION; Start 11/03/18 at 12:00 Magnesium Hydroxide (Milk Of Mag) 30 ml DAILY PRN PO .CONSTIPATION Last administered on 11/07/18 17:47; Admin Dose 30 ML; Start 11/03/18 at 12:00 Albuterol/ Ipratropium (Duoneb) 3 ml Q4H RESP THERAPY PRN HHN SHORTNESS OF BREATH Last administered on 11/06/18 05:07; Admin Dose 3 ML; Start 11/03/18 at 12:00 Vancomycin HCl (Vanco Iv Per Pharmacy) VANCOMYCIN PER PHARMACY NOTE XX ; Start 11/03/18 at 12:00 Hydralazine HCl (Apresoline) 10 mg Q6H PRN IV ELEVATED BLOOD PRESSURE; Start 11/03/18 at 12:00 Nitroglycerin (Nitroglycerin (Sl Tab) 0.4 Mg) 1 tab Q5M PRN SL ANGINA; Start 11/03/18 at 12:00 Aspirin (Ecotrin) 325 mg DAILY PO Last administered on 11/11/18 08:45; Admin Dose 325 MG; Start 11/04/18 at 09:00 Ascorbic Acid (Vitamin C) 500 mg DAILY GTB Last administered on 11/11/18 08:44; Admin Dose 500 MG; Start 11/04/18 at 09:00 Atorvastatin Calcium (Lipitor) 80 mg QHS GTB Last administered on 11/10/18 20:33; Admin Dose 80 MG; Start 11/03/18 at 21:00 Bisacodyl (Dulcolax Supp) 10 mg DAILY PRN [place] CONSTIPATION; Start 11/03/18 at 12:00 Chlorhexidine Gluconate (Peridex) 15 ml Q12H MM Last administered on 11/11/18 11:47; Admin Dose 15 ML; Start 11/03/18 at 12:00 Clonidine (Catapres) 0.2 mg Q8H PRN GTB SBP ABOVE 160; Start 11/03/18 at 12:00 Valproate Sodium (Depakene Liquid Cup) 500 mg BID GTB Last administered on 11/11/18 08:44; Admin Dose 500 MG; Start 11/03/18 at 21:00 Zinc Sulfate (Zinc Sulfate) 220 mg DAILY GTB Last administered on 11/11/18 08:44; Admin Dose 220 MG; Start 11/04/18 at 09:00 Lactobacillus Acidophilus/ Rhamnosus (Culturelle) 1 cap DAILY PO Last administered on 11/11/18 08:44; Admin Dose 1 CAP; Start 11/04/18 at 09:00 Multivitamins/ Minerals (Theragran-M) 1 tab DAILY PO Last administered on 11/11/18 11:47; Admin Dose 1 TAB; Start 11/04/18 at 09:00 Enoxaparin Sodium (Lovenox) 70 mg DAILY SC Last administered on 11/11/18 08:52; Admin Dose 70 MG; Start 11/04/18 at 09:00 Metoprolol Tartrate (Lopressor) 25 mg BID PO Last administered on 11/11/18 08:45; Admin Dose 25 MG; Start 11/03/18 at 21:00 Gabapentin (Neurontin) 600 mg BID GTB Last administered on 11/11/18 08:44; Admin Dose 600 MG; Start 11/04/18 at 12:00 Risperidone (Risperdal) 2 mg DAILY GTB Last administered on 11/11/18 08:45; Admin Dose 2 MG; Start 11/04/18 at 14:00 Mupirocin (Bactroban) 1 applic BID TOP Last administered on 11/11/18 08:46; Admin Dose 1 APPLIC; Start 11/05/18 at 12:00 Quetiapine Fumarate (Seroquel) 12.5 mg Q8 PRN GTB AGITATION Last administered on 11/10/18 20:54; Admin Dose 12.5 MG; Start 11/06/18 at 11:00 Diphenhydramine HCl (Benadryl) 25 mg Q6H PRN IV ITCHING Last administered on 5/30/19at 10:17; Admin Dose 25 MG; Start 11/06/18 at 18:00 Famotidine (Pepcid) 20 mg BID GTB Last administered on 11/11/18at 11:47; Admin Dose 20 MG; Start 11/07/18 at 09:00 Vancomycin/Sodium Chloride 250 ml @ 125 mls/hr Q8H IVPB Last administered on 11/11/18at 06:05; Admin Dose 125 MLS/HR; Start 11/10/18 at 23:00 NORMAN KESSLER November 11, 2018 14:52
--- NOTE | 2018-11-11 17:38 | CONS ---
DATE OF ADMISSION: 11/03/2018 DATE OF CONSULTATION: 11/11/[address] Ramírez for this consultation. HISTORY OF PRESENT ILLNESS: This is a 43-year-old gentleman with a history of subarachnoid hemorrhag e with BELT TURNER shunt, sent in from residential facility for altered mental status and worsening respir atory distress. The patient is nonverbal, unable to give me further details. head was perform ed on admission showed no acute intracranial abnormalities other than chronic changes from prior surg kai. Chest x-ray showed bilateral airspace disease with atelectasis. In addition, the patient had m ild lactic acidosis and elevated troponin. The patient is nonverbal, unable to give me further detai ls. PAST MEDICAL HISTORY: As above. MEDICATIONS: Per chart. ALLERGIES: NONE. SOCIAL HISTORY: He is a nonsmoker, no alcohol, no history of drug use. FAMILY HISTORY: Noncontributory. SYSTEMS REVIEW: A 12-point review of systems was negative other than admission. PHYSICAL EXAMINATION: GENERAL: Chronically ill-appearing gentleman, comfortable at rest, no acute distress. VITAL SIGNS: Currently afebrile, pulse is 55, blood pressure 117/75, O2 saturation 96% on FIO2 of 40 %. NECK: Trach site clean and intact. CARDIAC: S1, S2, no added sounds or murmurs. CHEST: Diminished air entry bilaterally. ABDOMEN: Soft and nontender. No guarding or rebound. EXTREMITIES: No cyanosis, clubbing or edema. NEUROLOGIC: Generalized weakness. LABORATORY DATA: White count 12.8, hemoglobin 12.8, platelets of 257. Chemistry: BUN 9, creatinine 0.61. INR was 1.12. IMPRESSION AND PLAN: 1. 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 2. Recent embolic stroke. 3. Hematuria and bacteremia. 4. Elevated troponin, likely type 2 non-ST elevation myocardial infarction. 5. Hyperlipidemia. 6. Chronic respiratory failure, tracheostomy. PLAN: 1. Continue antibiotics. Currently, blood cultures negative. The patient continues vancomycin, pen ding further cultures. 2. Continue tube feeding. 3. Vent support. 4. DVT and GI prophylaxis. Dictated By: ASIF MARTIN MD SV/PRISCILLA Conf#: [id number] DID#: [id number] CC: BRANDT RAMÍREZ;*EndCC*
--- NOTE | 2018-11-11 18:51 | CONS ---
DATE OF ADMISSION: 11/03/2018 DATE OF CONSULTATION: 11/11/2018 TYPE OF CONSULTATION: Infectious disease. REASON FOR CONSULTATION: Antibiotic management. HISTORY OF PRESENT ILLNESS: Reggie Churchill is an unfortunate 43-year-old male who comes in with jojo den onset of loss of consciousness and apnea. The patient has a history of subarachnoid hemorrhage. His problems include: 1. History of subarachnoid hemorrhage with subsequent NEWSWRITER shunt. 2. Tracheostomy. 3. G-tube placement. 4. Hypertension. 5. Hypercholesterolemia. 6. Depression. 7. GERD. The patient came into the hospital with signs of pneumonia and elevated troponin, slight lactic acido sis and renal insufficiency. He had an embolic stroke with MRI findings of infarct. The patient had a blood culture which was positive for coag negative staph, 06/17. He is currently on his 8th day of vancomycin. The patient had a CT angiogram of the neck which was negative. There was a coil emboliz ation of an anterior communicating artery aneurysm with no evidence of residual or recurrent aneurysm filling. He has a JAKE which was negative for thrombi. Speech therapy recommended initiation of ora l feeding and holding of G-tube. He has hematuria, elevated troponins, renal insufficiency, hyperten gertrudis, hypercholesterolemia and tracheostomy placement. Today, his white count is 12.8, H and H of 12 .8 and 38.8, platelet count of 257,000. BUN and creatinine is 9/0.61. Microbiology: Blood culture from 11/03/2018 was positive for coag negative staph. Blood culture from 11/09/2018 was negative x2. Currently, his white count is 12.8 from 11/10/2018. PAST MEDICAL HISTORY: Operations as outlined. FAMILY HISTORY: Noncontributory. SOCIAL HISTORY: Does not smoke, drink or abuse drugs. ALLERGIES: NONE TO PENICILLIN, SULFA OR FOODS. MEDICATIONS: Per chart. REVIEW OF SYSTEMS: As per HPI. PHYSICAL EXAMINATION: GENERAL: The patient is chronically ill-appearing male. VITAL SIGNS: Stable. He is afebrile. SKIN: He has a trach, PEG, NEWSWRITER shunt. HEENT: Within normal limits. NECK: Movable. CHEST: With decreased breath sounds at the bases. HEART: Without murmur or gallop. ABDOMEN: Soft, nontender, without organosplenomegaly or masses. EXTREMITIES: Without cyanosis, clubbing or edema. RECTAL AND GENITAL: Deferred. NEUROLOGIC: No focal neurological abnormalities. The patient is markedly debilitated, able to move all extremities. IMPRESSION AND PLAN: We will get a sputum for C and S and Gram stain and repeat portable chest x-ray and at this point discontinue his vancomycin. I will dictate my findings to the hospitalist. Dictated By: RODRÍGUEZ ALBARADO MD, JD/NTS Conf#: [id number] DID#: [id number] CC: BRANDT RAMÍREZ; ASIF MARTIN MD;*EndCC*
[2018-11-11] MEDS: QUETIAPINE 25 MG TAB GTB PRN (20:27)
[2018-11-11] MEDS: ATORVASTATIN 40 MG TAB GTB SCH (20:27)
[2018-11-11] MEDS ORDERED: HALOPERIDOL 5 MG INJ IM ONE (21:00)
[2018-11-12] VITALS (18 sets, daily range): BP systolic 91–158; BP diastolic 53–102; PULSE 44–82; RESP 20–22
[2018-11-12] MEDS: CHLORHEXIDINE GLUCONATE 15 ML UD CUP MM SCH ×2 (00:35→11:59)
[2018-11-12] MEDS: QUETIAPINE 25 MG TAB GTB PRN ×2 (04:35→21:21)
[2018-11-12] MEDS: HYDROCODONE/APAP (5/325) TAB PO PRN ×3 (05:17→20:19)
[2018-11-12] MEDS: MULTIVITAMINS/MINERALS TAB PO SCH (08:43)
[2018-11-12] MEDS: ZINC SULFATE 220 MG CAP GTB SCH (08:43)
[2018-11-12] MEDS: LACTOBACILLUS RHAMNOSUS CAP PO SCH (08:44)
[2018-11-12] MEDS: FAMOTIDINE 20 MG TAB GTB SCH ×2 (08:44→20:19)
[2018-11-12] MEDS: METOPROLOL 25 MG TAB PO SCH ×2 (08:44→20:20)
[2018-11-12] MEDS: RISPERIDONE 2 MG TAB GTB SCH (08:44)
[2018-11-12] MEDS: ASPIRIN (EC) 325 MG TAB PO SCH (08:45)
[2018-11-12] MEDS: ASCORBIC ACID 500 MG TAB GTB SCH (08:45)
[2018-11-12] MEDS: ACETAMINOPHEN 325 MG TAB PO PRN (08:45)
[2018-11-12] MEDS: GABAPENTIN 300 MG CAP GTB SCH ×2 (08:45→20:19)
[2018-11-12] MEDS: VALPROIC ACID LIQUID CUP 250 MG/5 ML CUP GTB SCH ×2 (08:46→20:19)
[2018-11-12] MEDS: DIPHENHYDRAMINE 50 MG INJ IV PRN (08:46)
[2018-11-12] MEDS: MUPIROCIN 2% 22 GM OINT TOP SCH ×2 (08:47→20:22)
[2018-11-12] MEDS: ENOXAPARIN 80 MG/0.8 ML SYG SC SCH (08:49)
--- NOTE | 2018-11-12 11:44 | CONS ---
Consult Date/Type/Reason Admit Date/Time November 03, 2018 at 10:30 Initial Consult Date Requesting Provider: BRANDT RAMÍREZ Date/Time of Note DATE: 11/12/18 TIME: 11:42 Subjective NO acute events - pt with intermittent agitation - trying to get out of bed - con't resp Rx - hematuria noted - no obvious CP. ROS: No fever, no chills, no nausea, no vomiting, no diarrhea/constipation - per nurse + hematuria Objective Vitals Vital Signs Date Temp Pulse Resp B/P (MAP) Pulse Ox O2 O2 Flow FiO2 Time Delivery Rate 11/12/18 98.1 67 20 140/83 99 Trach 10:00 (102) Collar 11/12/18 5.0 28 05:51 Intake and Output 11/11/18 11/11/18 11/12/18 1515:00 23:00 07:00 IntakeIntake Total 250 ml 550 ml 200 ml OutputOutput Total 300 ml 1000 ml BalanceBalance 250 ml 250 ml -800 ml Exam General: WN/WD/NAD, AOx 0 HEENT: Unicetric/atraumatic/EOMI (does not follow commands) NECK: trah Lymph: no lymphadenopathy HEART: regular with no S3, II/ systolic murmur at apex LUNGS: Coarse sounds ABD: soft, NT, ND, +BS : Intact, Higgins Neuro: non focal SKIN: chronic changes EXT: trace edema Results/Medications Result Diagram: 11/10/18 0541 11/11/18 05 Results 24 hrs Laboratory Tests Test 11/11/18 12:29 Lab Scanned Report REFERENCE LAB Home Meds Reported Medications Zinc Sulfate* (Zinc Sulfate*) 220 Mg Tablet, 220 MG GTB DAILY, TAB STOP TAKING 11/21/18 11/03/18 Ascorbic Acid* (Vitamin C*) 500 Mg Capsule.sa, 500 MG GTB DAILY, CAP 11/03/18 Valproic Acid* (Valproic Acid* Liq) 250 Mg/5 Ml Syrup, 10 ML GTB BID, ML 11/03/18 Cran/Vitc/Mannose/Inulin/Brom (Uti-Stat Liquid) 3,875 Mg/30 Ml Liquid, 30 ML GTB DAILY 11/03/18 Acetaminophen* (Acetaminophen*) 500 MG Extra Strength Tablet, 1000 MG GTB Q4H PRN for PAIN 4-11/21, TAB 11/03/18 Acetaminophen* (Tylenol*) 325 Mg Tablet, 650 MG GTB BID PRN for PAIN AND OR ELEVATED TEMP, TAB 11/03/18 Acetaminophen* (Tylenol*) 325 Mg Tablet, 650 MG GTB Q4H PRN for MILD PAIN LEVEL 1-3, TAB AND FEVER 101F,STOP DATE 12/21/18 11/03/18 Acetaminophen* (Tylenol*) 325 Mg Tablet, 650 MG GTB NEEDED PRN for TRACH TUBE CHANGE, TAB 11/03/18 Risperidone* (Risperdal*) 1 Mg Tablet, 2 MG GTB DAILY, TAB STOP DATE 11/05/18 11/03/18 Amino Acids/Protein Hydrolys (PRO-STAT LIQUID) 30 Ml Liquid.pkt, 30 ML GTB BID 11/03/18 Hydrocodone/Acetaminophen ([place] 5-325 Tablet) 1 Each Tablet, 1 EACH GTB Q6H PRN for PAIN -02/21, TAB 11/03/18 Multivitamin with Minerals (Multivitamins with Minerals) 1 Each Tablet, 1 EACH GTB DAILY, TAB 11/03/18 Magnesium Hydroxide* (Milk Of Magnesia*) 400 Mg/5 Ml Oral.susp, 30 ML GTB NEEDED, ML 11/03/18 Heparin Sodium,Porcine/Pf (HEPARIN SOD 5,000 UNIT/ 0.5 ML) 5,000 Unit/0.5 Ml Vial, 5000 UNIT IJ Q12H, VIAL 11/03/18 Gabapentin* (Gabapentin*) 300 Mg Capsule, 600 MG GTB BID, #180 CAP 11/03/18 Mineral Oil* (Fleet* Mineral Oil Enema) Unknown Strength Oil, 1 APPLIC [place] NEEDED PRN for CONSTIPATION, ENEMA 11/03/18 Bisacodyl (Dulcolax) 10 Mg Supp.rect, 10 MG RC PRN, SUPP.RECT 11/03/18 Docusate Sodium* (Colace*) 100 Mg Capsule, 200 MG GTB QHS, #60 CAP 11/03/18 Clonidine Hcl* (Clonidine Hcl*) 0.1 Mg Tab, 0.2 MG GTB Q8H PRN for HTN, TAB HOLD FOR SBPBELOW 110 OR HR BELOW 60 11/03/18 Chlorhexidine Gluconate (Periogard) 473 Ml Mouthwash, 15 ML MM Q12H, BOTTLE 11/03/18 Atorvastatin* (Atorvastatin*) 40 Mg Tablet, 80 MG GTB QHS, #30 TAB 11/03/18 Albuterol Sulfate* (Albuterol Sulfate* Neb) 0.083%-3 Ml Neb, 2.5 MG NEB Q6H PRN for WHEEZING AND SOB, #30 VIAL AND NEEDED Q3H 11/03/18 Lactobacillus Acidophilus/Pect (Acidophilus-Pectin Capsule) 1 Each Capsule, 1 EACH GTB DAILY, CAP 11/03/18 Medications Current Medications Naloxone HCl (Narcan) 1 mg Q2M PRN IV LETHARGY Last administered on 11/03/18at 07:19; Admin Dose 1 MG; Start 11/03/18 at 07:00 IV Flush (NS 3 ml) 3 ml PER PROTOCOL IV ; Start 11/03/18 at 12:00 Ondansetron HCl (Zofran Inj) 4 mg Q6H PRN IV NAUSEA/VOMITING Last administered on 11/07/18at 17:46; Admin Dose 4 MG; Start 11/03/18 at 12:00 Acetaminophen (Tylenol Tab) 650 mg Q6H PRN PO .PAIN 1-3 OR TEMP Last administered on 11/12/18at 08:45; Admin Dose 650 MG; Start 11/03/18 at 12:00 Acetaminophen/ Hydrocodone Bitart ([place] (5/325)) 1 tab Q6H PRN PO .MOD PAIN 4- 6 Last administered on 11/12/18at 05:17; Admin Dose 1 TAB; Start 11/03/18 at 12:00 Docusate Sodium (Colace) 100 mg Q12H PRN PO .CONSTIPATION; Start 11/03/18 at 12:00 Magnesium Hydroxide (Milk Of Mag) 30 ml DAILY PRN PO .CONSTIPATION Last administered on 11/07/18at 17:47; Admin Dose 30 ML; Start 11/03/18 at 12:00 Albuterol/ Ipratropium (Duoneb) 3 ml Q4H RESP THERAPY PRN HHN SHORTNESS OF BREATH Last administered on 11/06/18at 05:07; Admin Dose 3 ML; Start 11/03/18 at 12:00 Hydralazine HCl (Apresoline) 10 mg Q6H PRN IV ELEVATED BLOOD PRESSURE; Start 11/03/18 at 12:00 Nitroglycerin (Nitroglycerin (Sl Tab) 0.4 Mg) 1 tab Q5M PRN SL ANGINA; Start 11/03/18 at 12:00 Aspirin (Ecotrin) 325 mg DAILY PO Last administered on 11/12/18 08:45; Admin Dose 325 MG; Start 11/04/18 at 09:00 Ascorbic Acid (Vitamin C) 500 mg DAILY GTB Last administered on 11/12/18 08:45; Admin Dose 500 MG; Start 11/04/18 at 09:00 Atorvastatin Calcium (Lipitor) 80 mg QHS GTB Last administered on 11/11/18 20:27; Admin Dose 80 MG; Start 11/03/18 at 21:00 Bisacodyl (Dulcolax Supp) 10 mg DAILY PRN [place] CONSTIPATION; Start 11/03/18 at 12:00 Chlorhexidine Gluconate (Peridex) 15 ml Q12H MM Last administered on 11/12/18 00:35; Admin Dose 15 ML; Start 11/03/18 at 12:00 Clonidine (Catapres) 0.2 mg Q8H PRN GTB SBP ABOVE 160; Start 11/03/18 at 12:00 Valproate Sodium (Depakene Liquid Cup) 500 mg BID GTB Last administered on 11/12/18 08:46; Admin Dose 500 MG; Start 11/03/18 at 21:00 Zinc Sulfate (Zinc Sulfate) 220 mg DAILY GTB Last administered on 11/12/18 08:43; Admin Dose 220 MG; Start 11/04/18 at 09:00 Lactobacillus Acidophilus/ Rhamnosus (Culturelle) 1 cap DAILY PO Last administered on 11/12/18 08:44; Admin Dose 1 CAP; Start 11/04/18 at 09:00 Multivitamins/ Minerals (Theragran-M) 1 tab DAILY PO Last administered on 11/12/18 08:43; Admin Dose 1 TAB; Start 11/04/18 at 09:00 Enoxaparin Sodium (Lovenox) 70 mg DAILY SC Last administered on 11/12/18 08:49; Admin Dose 70 MG; Start 11/04/18 at 09:00 Metoprolol Tartrate (Lopressor) 25 mg BID PO Last administered on 11/12/18 08:44; Admin Dose 25 MG; Start 11/03/18 at 21:00 Gabapentin (Neurontin) 600 mg BID GTB Last administered on 11/12/18 08:45; Admin Dose 600 MG; Start 11/04/18 at 12:00 Risperidone (Risperdal) 2 mg DAILY GTB Last administered on 11/12/18 08:44; Admin Dose 2 MG; Start 11/04/18 at 14:00 Mupirocin (Bactroban) 1 applic BID TOP Last administered on 11/12/18 08:47; Admin Dose 1 APPLIC; Start 11/05/18 at 12:00 Quetiapine Fumarate (Seroquel) 12.5 mg Q8 PRN GTB AGITATION Last administered on 11/12/18 04:35; Admin Dose 12.5 MG; Start 11/06/18 at 11:00 Diphenhydramine HCl (Benadryl) 25 mg Q6H PRN IV ITCHING Last administered on 11/12/18 08:46; Admin Dose 25 MG; Start 11/06/18 at 18:00 Famotidine (Pepcid) 20 mg BID GTB Last administered on 11/12/18 08:44; Admin Dose 20 MG; Start 11/07/18 at 09:00 Assessment/Plan Hospital Course (Demo Recall) 1. Positive troponin with uptrending consistent with non-ST elevation myocardial infarction-Echo EF 50-55 11/03 - no obvious CP - will monitor clinically now,. NO CP now - difficult o access, but apperas to be comfortable. 2. Abnormal electrocardiogram with incomplete right bundle branch block- now in sinus on tele. 3. Tachycardia, mild - witha gition. Rate controlled. 4. Chronic respiratory failure, status post tracheostomy. Con't resp Rx. 5. Dysphagia, status post G-tube. 6. History of subarachnoid hemorrhage - defer to neuro. 7. History of ventriculoperitoneal shunt. 8. 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 fib over 24 hrs. - rate controled. 9. Hematuria - primary follows. VICENTE XIE MD Nov 12, 2018 11:44
--- NOTE | 2018-11-12 13:31 | CONS ---
Assessment/Plan Assessment/Plan Hospital Course (Demo Recall) No acute events overnight per report patient is noncommunicative in no distress he has significant hematuria. No fevers overnight. No labs this morning. Microbiology: Cultures since admission had been negative. Chest x-ray from yesterday revealed interval clearing right basilar interstitial infiltrate with partial clearing left basilar interstitial infiltrate Indwelling's: Trach back Higgins Antimicrobials: Patient is status post vancomycin Physical examination: This is a chronically ill-appearing middle-aged man who is noncommunicative the patient is in no distress. Head atraumatic normocephalic. Neck is supple. Tracheostomy present. Chest rise symmetrical, breath sounds diminished to bases. Heart: S1-S2. Abdomen soft bowel sounds present. Patient has Higgins catheter with bloody urine. Extremities without cyanosis. Assessment: 1. Hematuria rule out UTI, rule out other etiologies 2. Status post pneumonia 3. Chronic respiratory failure and dysphagia 4. Status post coag negative staph bacteremia on admission consistent with contaminant 5. Chronic encephalopathy, history of subarachnoid hemorrhage Plan: Patient is clinically stable, will add cefepime to the regimen and repeat urine culture, consider urology evaluation and three-way Higgins. Discussed with charge nurse Mila Consultation Date/Type/Reason Admit Date/Time November 03, 2018 at 10:30 Initial Consult Date Type of Consult id Requesting Provider: BRANDT RAMÍREZ Date/Time of Note DATE: 11/12/18 TIME: 13:31 Exam/Review of Systems Exam Vitals Vital Signs Date Temp Pulse Resp B/P (MAP) Pulse Ox O2 O2 Flow FiO2 Time Delivery Rate 11/12/18 63 12:39 11/12/18 18 96 28 12:10 11/12/18 5.0 12:10 11/12/18 98.1 140/83 Trach 10:00 (102) Collar Intake and Output 11/11/18 11/11/18 11/12/18 1515:00 23:00 07:00 IntakeIntake Total 250 ml 550 ml 200 ml OutputOutput Total 300 ml 1000 ml BalanceBalance 250 ml 250 ml -800 ml Results Result Diagram: 11/10/18 0541 11/11/18 0522 Medications Medication Current Medications Naloxone HCl (Narcan) 1 mg Q2M PRN IV LETHARGY Last administered on 11/03/18at 07:19; Admin Dose 1 MG; Start 11/03/18 at 07:00 IV Flush (NS 3 ml) 3 ml PER PROTOCOL IV ; Start 11/03/18 at 12:00 Ondansetron HCl (Zofran Inj) 4 mg Q6H PRN IV NAUSEA/VOMITING Last administered on 11/07/18 17:46; Admin Dose 4 MG; Start 11/03/18 at 12:00 Acetaminophen (Tylenol Tab) 650 mg Q6H PRN PO .PAIN 1-3 OR TEMP Last administered on 11/12/18 08:45; Admin Dose 650 MG; Start 11/03/18 at 12:00 Acetaminophen/ Hydrocodone Bitart ([place] (5/325)) 1 tab Q6H PRN PO .MOD PAIN 4- 6 Last administered on 11/12/18 11:52; Admin Dose 1 TAB; Start 11/03/18 at 12:00 Docusate Sodium (Colace) 100 mg Q12H PRN PO .CONSTIPATION; Start 11/03/18 at 12:00 Magnesium Hydroxide (Milk Of Mag) 30 ml DAILY PRN PO .CONSTIPATION Last administered on 11/07/18 17:47; Admin Dose 30 ML; Start 11/03/18 at 12:00 Albuterol/ Ipratropium (Duoneb) 3 ml Q4H RESP THERAPY PRN HHN SHORTNESS OF BREATH Last administered on 11/06/18 05:07; Admin Dose 3 ML; Start 11/03/18 at 12:00 Hydralazine HCl (Apresoline) 10 mg Q6H PRN IV ELEVATED BLOOD PRESSURE; Start 11/03/18 at 12:00 Nitroglycerin (Nitroglycerin (Sl Tab) 0.4 Mg) 1 tab Q5M PRN SL ANGINA; Start 11/03/18 at 12:00 Aspirin (Ecotrin) 325 mg DAILY PO Last administered on 11/12/18 08:45; Admin Dose 325 MG; Start 11/04/18 at 09:00 Ascorbic Acid (Vitamin C) 500 mg DAILY GTB Last administered on 11/12/18 08:45; Admin Dose 500 MG; Start 11/04/18 at 09:00 Atorvastatin Calcium (Lipitor) 80 mg QHS GTB Last administered on 11/11/18 20:27; Admin Dose 80 MG; Start 11/03/18 at 21:00 Bisacodyl (Dulcolax Supp) 10 mg DAILY PRN [place] CONSTIPATION; Start 11/03/18 at 12:00 Chlorhexidine Gluconate (Peridex) 15 ml Q12H MM Last administered on 11/12/18 11:59; Admin Dose 15 ML; Start 11/03/18 at 12:00 Clonidine (Catapres) 0.2 mg Q8H PRN GTB SBP ABOVE 160; Start 11/03/18 at 12:00 Valproate Sodium (Depakene Liquid Cup) 500 mg BID GTB Last administered on 11/12/18 08:46; Admin Dose 500 MG; Start 11/03/18 at 21:00 Zinc Sulfate (Zinc Sulfate) 220 mg DAILY GTB Last administered on 11/12/18 08:43; Admin Dose 220 MG; Start 11/04/18 at 09:00 Lactobacillus Acidophilus/ Rhamnosus (Culturelle) 1 cap DAILY PO Last administered on 11/12/18 08:44; Admin Dose 1 CAP; Start 11/04/18 at 09:00 Multivitamins/ Minerals (Theragran-M) 1 tab DAILY PO Last administered on 11/12/18 08:43; Admin Dose 1 TAB; Start 11/04/18 at 09:00 Enoxaparin Sodium (Lovenox) 70 mg DAILY SC Last administered on 11/12/18 08:49; Admin Dose 70 MG; Start 11/04/18 at 09:00 Metoprolol Tartrate (Lopressor) 25 mg BID PO Last administered on 11/12/18 08:44; Admin Dose 25 MG; Start 11/03/18 at 21:00 Gabapentin (Neurontin) 600 mg BID GTB Last administered on 11/12/18 08:45; Admin Dose 600 MG; Start 11/04/18 at 12:00 Risperidone (Risperdal) 2 mg DAILY GTB Last administered on 11/12/18 08:44; Admin Dose 2 MG; Start 11/04/18 at 14:00 Mupirocin (Bactroban) 1 applic BID TOP Last administered on 11/12/18 08:47; Admin Dose 1 APPLIC; Start 11/05/18 at 12:00 Quetiapine Fumarate (Seroquel) 12.5 mg Q8 PRN GTB AGITATION Last administered on 11/12/18 04:35; Admin Dose 12.5 MG; Start 11/06/18 at 11:00 Diphenhydramine HCl (Benadryl) 25 mg Q6H PRN IV ITCHING Last administered on 11/12/18at 08:46; Admin Dose 25 MG; Start 11/06/18 at 18:00 Famotidine (Pepcid) 20 mg BID GTB Last administered on 11/12/18at 08:44; Admin Dose 20 MG; Start 11/07/18 at 09:00 AIMEE BRADSHAW NP Nov 12, 2018 13:31
[2018-11-12] MEDS: CEFEPIME 1GM/50 ML (PMX) 50 ML IVPB SCH ×2 (14:43→20:21)
--- NOTE | 2018-11-12 15:33 | CONS ---
Consult Date/Type/Reason Admit Date/Time November 03, 2018 at 10:30 Initial Consult Date Type of Consultation: Pulm Requesting Provider: BRANDT RAMÍREZ Date/Time of Note DATE: 11/12/18 TIME: 15:29 Subjective No events. On trach collar. Objective Vitals Vital Signs Date Temp Pulse Resp B/P (MAP) Pulse Ox O2 O2 Flow FiO2 Time Delivery Rate 11/12/18 97.7 49 91/53 (66) 98 Trach 14:00 Collar 11/12/18 18 28 12:10 11/12/18 5.0 12:10 Intake and Output 11/11/18 11/11/18 11/12/18 1515:00 23:00 07:00 IntakeIntake Total 250 ml 550 ml 200 ml OutputOutput Total 300 ml 1000 ml BalanceBalance 250 ml 250 ml -800 ml Exam GENERAL: Chronically ill-appearing gentleman, comfortable at rest, no acute distress. VITAL SIGNS: Currently afebrile, pulse is 55, blood pressure 117/75, O2 saturation 96% on FIO2 of 40%. NECK: Trach site clean and intact. CARDIAC: S1, S2, no added sounds or murmurs. CHEST: Diminished air entry bilaterally. ABDOMEN: Soft and nontender. No guarding or rebound. EXTREMITIES: No cyanosis, clubbing or edema. NEUROLOGIC: Generalized weakness. Results/Medications Result Diagram: 11/10/18 0541 11/11/18 05 Home Meds Reported Medications Zinc Sulfate* (Zinc Sulfate*) 220 Mg Tablet, 220 MG GTB DAILY, TAB STOP TAKING 11/21/18 11/03/18 Ascorbic Acid* (Vitamin C*) 500 Mg Capsule.sa, 500 MG GTB DAILY, CAP 11/03/18 Valproic Acid* (Valproic Acid* Liq) 250 Mg/5 Ml Syrup, 10 ML GTB BID, ML 11/03/18 Cran/Vitc/Mannose/Inulin/Brom (Uti-Stat Liquid) 3,875 Mg/30 Ml Liquid, 30 ML GTB DAILY 11/03/18 Acetaminophen* (Acetaminophen*) 500 MG Extra Strength Tablet, 1000 MG GTB Q4H PRN for PAIN 4-610, TAB 11/03/18 Acetaminophen* (Tylenol*) 325 Mg Tablet, 650 MG GTB BID PRN for PAIN AND OR E LEVATED TEMP, TAB 11/03/18 Acetaminophen* (Tylenol*) 325 Mg Tablet, 650 MG GTB Q4H PRN for MILD PAIN LEVEL 1-3, TAB AND FEVER 101F,STOP DATE 12/21/18 11/03/18 Acetaminophen* (Tylenol*) 325 Mg Tablet, 650 MG GTB NEEDED PRN for TRACH TUBE CHANGE, TAB 11/03/18 Risperidone* (Risperdal*) 1 Mg Tablet, 2 MG GTB DAILY, TAB STOP DATE 11/05/18 11/03/18 Amino Acids/Protein Hydrolys (PRO-STAT LIQUID) 30 Ml Liquid.pkt, 30 ML GTB BID 11/03/18 Hydrocodone/Acetaminophen ([place] 5-325 Tablet) 1 Each Tablet, 1 EACH GTB Q6H PRN for PAIN -02/21, TAB 11/03/18 Multivitamin with Minerals (Multivitamins with Minerals) 1 Each Tablet, 1 EACH GTB DAILY, TAB 11/03/18 Magnesium Hydroxide* (Milk Of Magnesia*) 400 Mg/5 Ml Oral.susp, 30 ML GTB NEEDED, ML 11/03/18 Heparin Sodium,Porcine/Pf (HEPARIN SOD 5,000 UNIT/ 0.5 ML) 5,000 Unit/0.5 Ml Vial, 5000 UNIT IJ Q12H, VIAL 11/03/18 Gabapentin* (Gabapentin*) 300 Mg Capsule, 600 MG GTB BID, #180 CAP 11/03/18 Mineral Oil* (Fleet* Mineral Oil Enema) Unknown Strength Oil, 1 APPLIC [place] NEEDED PRN for CONSTIPATION, ENEMA 11/03/18 Bisacodyl (Dulcolax) 10 Mg Supp.rect, 10 MG RC PRN, SUPP.RECT 11/03/18 Docusate Sodium* (Colace*) 100 Mg Capsule, 200 MG GTB QHS, #60 CAP 11/03/18 Clonidine Hcl* (Clonidine Hcl*) 0.1 Mg Tab, 0.2 MG GTB Q8H PRN for HTN, TAB HOLD FOR SBPBELOW 110 OR HR BELOW 60 11/03/18 Chlorhexidine Gluconate (Periogard) 473 Ml Mouthwash, 15 ML MM Q12H, BOTTLE 11/03/18 Atorvastatin* (Atorvastatin*) 40 Mg Tablet, 80 MG GTB QHS, #30 TAB 11/03/18 Albuterol Sulfate* (Albuterol Sulfate* Neb) 0.083%-3 Ml Neb, 2.5 MG NEB Q6H PRN for WHEEZING AND SOB, #30 VIAL AND NEEDED Q3H 11/03/18 Lactobacillus Acidophilus/Pect (Acidophilus-Pectin Capsule) 1 Each Capsule, 1 EACH GTB DAILY, CAP 11/03/18 Medications Current Medications Naloxone HCl (Narcan) 1 mg Q2M PRN IV LETHARGY Last administered on 11/03/18at 07:19; Admin Dose 1 MG; Start 11/03/18 at 07:00 IV Flush (NS 3 ml) 3 ml PER PROTOCOL IV ; Start 11/03/18 at 12:00 Ondansetron HCl (Zofran Inj) 4 mg Q6H PRN IV NAUSEA/VOMITING Last administered on 11/07/18at 17:46; Admin Dose 4 MG; Start 11/03/18 at 12:00 Acetaminophen (Tylenol Tab) 650 mg Q6H PRN PO .PAIN 1-3 OR TEMP Last administered on 11/12/18at 08:45; Admin Dose 650 MG; Start 11/03/18 at 12:00 Acetaminophen/ Hydrocodone Bitart ([place] (5/325)) 1 tab Q6H PRN PO .MOD PAIN 4- 6 Last administered on 11/12/18at 11:52; Admin Dose 1 TAB; Start 11/03/18 at 12:00 Docusate Sodium (Colace) 100 mg Q12H PRN PO .CONSTIPATION; Start 11/03/18 at 12:00 Magnesium Hydroxide (Milk Of Mag) 30 ml DAILY PRN PO .CONSTIPATION Last administered on 11/07/18at 17:47; Admin Dose 30 ML; Start 11/03/18 at 12:00 Albuterol/ Ipratropium (Duoneb) 3 ml Q4H RESP THERAPY PRN HHN SHORTNESS OF BREATH Last administered on 11/06/18at 05:07; Admin Dose 3 ML; Start 11/03/18 at 12:00 Hydralazine HCl (Apresoline) 10 mg Q6H PRN IV ELEVATED BLOOD PRESSURE; Start 11/03/18 at 12:00 Nitroglycerin (Nitroglycerin (Sl Tab) 0.4 Mg) 1 tab Q5M PRN SL ANGINA; Start 11/03/18 at 12:00 Aspirin (Ecotrin) 325 mg DAILY PO Last administered on 11/12/18 08:45; Admin Dose 325 MG; Start 11/04/18 at 09:00 Ascorbic Acid (Vitamin C) 500 mg DAILY GTB Last administered on 11/12/18 08:45; Admin Dose 500 MG; Start 11/04/18 at 09:00 Atorvastatin Calcium (Lipitor) 80 mg QHS GTB Last administered on 11/11/18 20:27; Admin Dose 80 MG; Start 11/03/18 at 21:00 Bisacodyl (Dulcolax Supp) 10 mg DAILY PRN [place] CONSTIPATION; Start 11/03/18 at 12:00 Chlorhexidine Gluconate (Peridex) 15 ml Q12H MM Last administered on 11/12/18 11:59; Admin Dose 15 ML; Start 11/03/18 at 12:00 Clonidine (Catapres) 0.2 mg Q8H PRN GTB SBP ABOVE 160; Start 11/03/18 at 12:00 Valproate Sodium (Depakene Liquid Cup) 500 mg BID GTB Last administered on 11/12/18 08:46; Admin Dose 500 MG; Start 11/03/18 at 21:00 Zinc Sulfate (Zinc Sulfate) 220 mg DAILY GTB Last administered on 11/12/18 08:43; Admin Dose 220 MG; Start 11/04/18 at 09:00 Lactobacillus Acidophilus/ Rhamnosus (Culturelle) 1 cap DAILY PO Last administered on 11/12/18 08:44; Admin Dose 1 CAP; Start 11/04/18 at 09:00 Multivitamins/ Minerals (Theragran-M) 1 tab DAILY PO Last administered on 11/12/18 08:43; Admin Dose 1 TAB; Start 11/04/18 at 09:00 Enoxaparin Sodium (Lovenox) 70 mg DAILY SC Last administered on 11/12/18 08:49; Admin Dose 70 MG; Start 11/04/18 at 09:00 Metoprolol Tartrate (Lopressor) 25 mg BID PO Last administered on 11/12/18 08:44; Admin Dose 25 MG; Start 11/03/18 at 21:00 Gabapentin (Neurontin) 600 mg BID GTB Last administered on 11/12/18 08:45; Admin Dose 600 MG; Start 11/04/18 at 12:00 Risperidone (Risperdal) 2 mg DAILY GTB Last administered on 11/12/18 08:44; Admin Dose 2 MG; Start 11/04/18 at 14:00 Mupirocin (Bactroban) 1 applic BID TOP Last administered on 11/12/18 08:47; Admin Dose 1 APPLIC; Start 11/05/18 at 12:00 Quetiapine Fumarate (Seroquel) 12.5 mg Q8 PRN GTB AGITATION Last administered on 11/12/18at 04:35; Admin Dose 12.5 MG; Start 11/06/18 at 11:00 Diphenhydramine HCl (Benadryl) 25 mg Q6H PRN IV ITCHING Last administered on 11/12/18 08:46; Admin Dose 25 MG; Start 11/06/18 at 18:00 Famotidine (Pepcid) 20 mg BID GTB Last administered on 11/12/18at 08:44; Admin Dose 20 MG; Start 11/07/18 at 09:00 Cefepime HCl 50 ml @ 100 mls/hr Q12 IVPB Last administered on 11/12/18at 14:43; Admin Dose 100 MLS/HR; Start 11/12/18 at 14:00 Assessment/Plan Assessment/Plan (Daily) IMP: 1. 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 2. Recent embolic stroke. 3. Hematuria and bacteremia. 4. Elevated troponin, likely type 2 non-ST elevation myocardial infarction. 5. Hyperlipidemia. 6. Chronic respiratory failure, tracheostomy. RECS: 1. Continue antibiotics as per ID 2. Continue tube feeding. 3. Vent support. 4. DVT and GI prophylaxis. TONI RIBERA MD Nov 12, 2018 15:33
--- NOTE | 2018-11-12 16:13 | PN ---
Date/Time of Note Date/Time of Note DATE: 11/12/18 TIME: 16:04 Assessment/Plan VTE Prophylaxis Risk score (from Ns)>0 risk: 4 SCD applied (from [facility]): Yes Pharmacological prophylaxis: NA/contraindicated Pharm contraindication: other Lines/Catheters IV Catheter Type (from [facility]): [place] Assessment/Plan Hospital Course 1. Embolic stroke - brain MRI: showing infarct -Per neurology team, hold off on benzos, continue Seroquel as needed, Also follow-up hypercoagulable work-up panel, continue aspirin. 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 pain and fevers. - oral feedings per ST 2. Hematuria - Hematuria noted 11/08 - - Suspect from pulled ly catheter. Restrains prn 3. Elevated troponins - - signs of non-ST elevation myocardial infarction. - lovenox per cardiology -Continue high dose aspirin and Lipitor, Morphine p.r.n., nitroglycerin p.r.n. 4. Renal insufficiency- improved - Monitor renal panel 5. History of hypertension. - Continue to monitor for now. He is on hydralazine p.r.n. 6. History of high cholesterol. - Continue Lipitor. # Tracheostomy placement - continue to wean off ventilator # Deep venous thrombosis prophylaxis- Lovenox. # History of gastroesophageal reflux disease- H2 k[place]all. DISPO/;PLAN: continue to wean off vent per pulmonary. will see for snf placement Discussed POC with Dr. Reynolds Result Diagram: 11/10/18 0541 11/11/18 0522 Subjective 24 Hr Interval Summary Free Text/Dictation remains trach to vent.alert to response. no s/s of distress Exam/Review of Systems Exam Vitals Vital Signs Date Temp Pulse Resp B/P (MAP) Pulse Ox O2 O2 Flow FiO2 Time Delivery Rate 11/12/18 97.7 49 91/53 (66) 98 Trach 14:00 Collar 11/12/18 18 28 12:10 11/12/18 5.0 12:10 Intake and Output 11/11/18 11/11/18 11/12/18 1515:00 23:00 07:00 IntakeIntake Total 250 ml 550 ml 200 ml OutputOutput Total 300 ml 1000 ml BalanceBalance 250 ml 250 ml -800 ml Constitutional: alert Head: normocephalic Eyes: nl conjunctiva Neck: supple, non-tender Respiratory: other (minimal congestion, with trach to vent ) Gastrointestinal: soft, non-tender, other (peg tube in place ) Musculoskeletal: swelling (minimal ble ) Skin: other (minimal swelling BLE ) Medications Medication Current Medications Naloxone HCl (Narcan) 1 mg Q2M PRN IV LETHARGY Last administered on 11/03/18 07:19; Admin Dose 1 MG; Start 11/03/18 at 07:00 IV Flush (NS 3 ml) 3 ml PER PROTOCOL IV ; Start 11/03/18 at 12:00 Ondansetron HCl (Zofran Inj) 4 mg Q6H PRN IV NAUSEA/VOMITING Last administered on 11/07/18at 17:46; Admin Dose 4 MG; Start 11/03/18 at 12:00 Acetaminophen (Tylenol Tab) 650 mg Q6H PRN PO .PAIN 1-3 OR TEMP Last administered on 11/12/18at 08:45; Admin Dose 650 MG; Start 11/03/18 at 12:00 Acetaminophen/ Hydrocodone Bitart ([place] (5/325)) 1 tab Q6H PRN PO .MOD PAIN 4- 6 Last administered on 11/12/18 11:52; Admin Dose 1 TAB; Start 11/03/18 at 12:00 Docusate Sodium (Colace) 100 mg Q12H PRN PO .CONSTIPATION; Start 11/03/18 at 12:00 Magnesium Hydroxide (Milk Of Mag) 30 ml DAILY PRN PO .CONSTIPATION Last administered on 11/07/18at 17:47; Admin Dose 30 ML; Start 11/03/18 at 12:00 Albuterol/ Ipratropium (Duoneb) 3 ml Q4H RESP THERAPY PRN HHN SHORTNESS OF B REATH Last administered on 11/06/18at 05:07; Admin Dose 3 ML; Start 11/03/18 at 12:00 Hydralazine HCl (Apresoline) 10 mg Q6H PRN IV ELEVATED BLOOD PRESSURE; Start 11/03/18 at 12:00 Nitroglycerin (Nitroglycerin (Sl Tab) 0.4 Mg) 1 tab Q5M PRN SL ANGINA; Start 11/03/18 at 12:00 Aspirin (Ecotrin) 325 mg DAILY PO Last administered on 11/12/18 08:45; Admin Dose 325 MG; Start 11/04/18 at 09:00 Ascorbic Acid (Vitamin C) 500 mg DAILY GTB Last administered on 11/12/18 08:45; Admin Dose 500 MG; Start 11/04/18 at 09:00 Atorvastatin Calcium (Lipitor) 80 mg QHS GTB Last administered on 11/11/18 20:27; Admin Dose 80 MG; Start 11/03/18 at 21:00 Bisacodyl (Dulcolax Supp) 10 mg DAILY PRN [place] CONSTIPATION; Start 11/03/18 at 12:00 Chlorhexidine Gluconate (Peridex) 15 ml Q12H MM Last administered on 11/12/18 11:59; Admin Dose 15 ML; Start 11/03/18 at 12:00 Clonidine (Catapres) 0.2 mg Q8H PRN GTB SBP ABOVE 160; Start 11/03/18 at 12:00 Valproate Sodium (Depakene Liquid Cup) 500 mg BID GTB Last administered on 11/12/18 08:46; Admin Dose 500 MG; Start 11/03/18 at 21:00 Zinc Sulfate (Zinc Sulfate) 220 mg DAILY GTB Last administered on 11/12/18 08:43; Admin Dose 220 MG; Start 11/04/18 at 09:00 Lactobacillus Acidophilus/ Rhamnosus (Culturelle) 1 cap DAILY PO Last administered on 11/12/18 08:44; Admin Dose 1 CAP; Start 11/04/18 at 09:00 Multivitamins/ Minerals (Theragran-M) 1 tab DAILY PO Last administered on 11/12/18 08:43; Admin Dose 1 TAB; Start 11/04/18 at 09:00 Enoxaparin Sodium (Lovenox) 70 mg DAILY SC Last administered on 11/12/18 08:49; Admin Dose 70 MG; Start 11/04/18 at 09:00 Metoprolol Tartrate (Lopressor) 25 mg BID PO Last administered on 11/12/18 08:44; Admin Dose 25 MG; Start 11/03/18 at 21:00 Gabapentin (Neurontin) 600 mg BID GTB Last administered on 11/12/18 08:45; Adm in Dose 600 MG; Start 11/04/18 at 12:00 Risperidone (Risperdal) 2 mg DAILY GTB Last administered on 11/12/18 08:44; Admin Dose 2 MG; Start 11/04/18 at 14:00 Mupirocin (Bactroban) 1 applic BID TOP Last administered on 11/12/18 08:47; Admin Dose 1 APPLIC; Start 11/05/18 at 12:00 Quetiapine Fumarate (Seroquel) 12.5 mg Q8 PRN GTB AGITATION Last administered on 11/12/18 04:35; Admin Dose 12.5 MG; Start 11/06/18 at 11:00 Diphenhydramine HCl (Benadryl) 25 mg Q6H PRN IV ITCHING Last administered on 11/12/18 08:46; Admin Dose 25 MG; Start 11/06/18 at 18:00 Famotidine (Pepcid) 20 mg BID GTB Last administered on 11/12/18 08:44; Admin Dose 20 MG; Start 11/07/18 at 09:00 Cefepime HCl 50 ml @ 100 mls/hr Q12 IVPB Last administered on 11/12/18 14:43; Admin Dose 100 MLS/HR; Start 11/12/18 at 14:00 NICOLE LAN NP Nov 12, 2018 16:13
[2018-11-12] MEDS: ATORVASTATIN 40 MG TAB GTB SCH (20:19)
[2018-11-12] MEDS ORDERED: HALOPERIDOL 5 MG INJ IM ONE (21:23)
[2018-11-13] VITALS (21 sets, daily range): BP systolic 87–147; BP diastolic 52–92; PULSE 43–84; RESP 17–20
[2018-11-13] MEDS: CHLORHEXIDINE GLUCONATE 15 ML UD CUP MM SCH ×2 (00:19→13:38)
[2018-11-13] MEDS: DIPHENHYDRAMINE 50 MG INJ IV PRN ×2 (01:19→06:56)
[2018-11-13] MEDS: HYDROCODONE/APAP (5/325) TAB PO PRN ×2 (03:36→10:04)
[2018-11-13] MEDS: QUETIAPINE 25 MG TAB GTB PRN ×2 (05:42→18:12)
[2018-11-13] MEDS: VALPROIC ACID LIQUID CUP 250 MG/5 ML CUP GTB SCH ×2 (09:10→21:55)
[2018-11-13] MEDS: CEFEPIME 1GM/50 ML (PMX) 50 ML IVPB SCH ×2 (09:10→21:58)
[2018-11-13] MEDS: ASCORBIC ACID 500 MG TAB GTB SCH (09:10)
[2018-11-13] MEDS: LACTOBACILLUS RHAMNOSUS CAP PO SCH (09:10)
[2018-11-13] MEDS: FAMOTIDINE 20 MG TAB GTB SCH ×2 (09:12→22:05)
[2018-11-13] MEDS: GABAPENTIN 300 MG CAP GTB SCH ×2 (09:12→21:56)
[2018-11-13] MEDS: METOPROLOL 25 MG TAB PO SCH ×2 (09:13→21:00)
[2018-11-13] MEDS: MULTIVITAMINS/MINERALS TAB PO SCH (09:13)
[2018-11-13] MEDS: MUPIROCIN 2% 22 GM OINT TOP SCH ×2 (09:14→21:58)
[2018-11-13] MEDS: RISPERIDONE 2 MG TAB GTB SCH (09:14)
[2018-11-13] MEDS: ZINC SULFATE 220 MG CAP GTB SCH (09:14)
[2018-11-13] MEDS: ASPIRIN (EC) 325 MG TAB PO SCH (09:14)
[2018-11-13] MEDS: ENOXAPARIN 80 MG/0.8 ML SYG SC SCH (09:15)
--- NOTE | 2018-11-13 09:24 | CONS ---
Assessment/Plan Assessment/Plan Assessment/Plan (Recall) 43 yo M with multiple comorbidities who presents for evaluation of ams in the context of respiratory sx. 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 for which neurology is consulted. The clinical picture raises concern for a cardioembolic process. Vasculitis is less likely. Echo (TTE) is unrevealing. JAKE was without evidence of intracardiac thrombus, though notable for spontaneous contrast and possible slow flow in the [place] CTA H/N was only notable for stable L MARNI aneurysm coil LDL 16, ESR 57, RPR neg, HIV neg Protein C and S low P: Cont ASA for secondary stroke prevention; LDL is at goal BP and other medical management per primary [facility] as able Limit sedating medications where possible PT/OT/ST when able Will follow clinically Consultation Date/Type/Reason Admit Date/Time November 03, 2018 at 10:30 Type of Consult Neurology Reason for Consultation Strokes Requesting Provider: BRANDT RAMÍREZ Date/Time of Note DATE: 11/13/18 TIME: 09:23 24 HR Interval Summary Free Text/Dictation Continues acute care Exam/Review of Systems Exam Vitals Vital Signs Date Temp Pulse Resp B/P (MAP) Pulse Ox O2 O2 Flow FiO2 Time Delivery Rate 11/13/18 84 145/89 09:13 (107) 11/13/18 20 98 Aerosol 5.0 28 07:45 T Tube 11/13/18 97.9 07:40 Intake and Output 11/12/18 11/12/18 11/13/18 1515:00 23:00 07:00 IntakeIntake Total 530 ml 70 ml OutputOutput Total 550 ml 1300 ml BalanceBalance -20 ml -1230 ml Results Result Diagram: 11/10/18 0541 11/11/18 0522 Medications Medication Current Medications Naloxone HCl (Narcan) 1 mg Q2M PRN IV LETHARGY Last administered on 11/03/18at 07:19; Admin Dose 1 MG; Start 11/03/18 at 07:00 IV Flush (NS 3 ml) 3 ml PER PROTOCOL IV ; Start 11/03/18 at 12:00 Ondansetron HCl (Zofran Inj) 4 mg Q6H PRN IV NAUSEA/VOMITING Last administered on 11/07/18at 17:46; Admin Dose 4 MG; Start 11/03/18 at 12:00 Acetaminophen (Tylenol Tab) 650 mg Q6H PRN PO .PAIN 1-3 OR TEMP Last administered on 11/12/18 08:45; Admin Dose 650 MG; Start 11/03/18 at 12:00 Acetaminophen/ Hydrocodone Bitart ([place] (5/325)) 1 tab Q6H PRN PO .MOD PAIN 4- 6 Last administered on 11/13/18 03:36; Admin Dose 1 TAB; Start 11/03/18 at 12:00 Docusate Sodium (Colace) 100 mg Q12H PRN PO .CONSTIPATION; Start 11/03/18 at 12:00 Magnesium Hydroxide (Milk Of Mag) 30 ml DAILY PRN PO .CONSTIPATION Last administered on 11/07/18at 17:47; Admin Dose 30 ML; Start 11/03/18 at 12:00 Albuterol/ Ipratropium (Duoneb) 3 ml Q4H RESP THERAPY PRN HHN SHORTNESS OF BREATH Last administered on 11/06/18 05:07; Admin Dose 3 ML; Start 11/03/18 at 12:00 Hydralazine HCl (Apresoline) 10 mg Q6H PRN IV ELEVATED BLOOD PRESSURE; Start 11/03/18 at 12:00 Nitroglycerin (Nitroglycerin (Sl Tab) 0.4 Mg) 1 tab Q5M PRN SL ANGINA; Start 11/03/18 at 12:00 Aspirin (Ecotrin) 325 mg DAILY PO Last administered on 11/13/18 09:14; Admin Dose 325 MG; Start 11/04/18 at 09:00 Ascorbic Acid (Vitamin C) 500 mg DAILY GTB Last administered on 11/13/18at 09:10; Admin Dose 500 MG; Start 11/04/18 at 09:00 Atorvastatin Calcium (Lipitor) 80 mg QHS GTB Last administered on 11/12/18 20:19; Admin Dose 80 MG; Start 11/03/18 at 21:00 Bisacodyl (Dulcolax Supp) 10 mg DAILY PRN [place] CONSTIPATION; Start 11/03/18 at 12:00 Chlorhexidine Gluconate (Peridex) 15 ml Q12H MM Last administered on 11/13/18at 00:19; Admin Dose 15 ML; Start 11/03/18 at 12:00 Clonidine (Catapres) 0.2 mg Q8H PRN GTB SBP ABOVE 160; Start 11/03/18 at 12:00 Valproate Sodium (Depakene Liquid Cup) 500 mg BID GTB Last administered on 11/13/18 09:10; Admin Dose 500 MG; Start 11/03/18 at 21:00 Zinc Sulfate (Zinc Sulfate) 220 mg DAILY GTB Last administered on 11/13/18 09:14; Admin Dose 220 MG; Start 11/04/18 at 09:00 Lactobacillus Acidophilus/ Rhamnosus (Culturelle) 1 cap DAILY PO Last administered on 11/13/18 09:10; Admin Dose 1 CAP; Start 11/04/18 at 09:00 Multivitamins/ Minerals (Theragran-M) 1 tab DAILY PO Last administered on 11/13/18 09:13; Admin Dose 1 TAB; Start 11/04/18 at 09:00 Enoxaparin Sodium (Lovenox) 70 mg DAILY SC Last administered on 11/13/18 09:15; Admin Dose 70 MG; Start 11/04/18 at 09:00 Metoprolol Tartrate (Lopressor) 25 mg BID PO Last administered on 11/13/18 09:13; Admin Dose 25 MG; Start 11/03/18 at 21:00 Gabapentin (Neurontin) 600 mg BID GTB Last administered on 11/13/18 09:12; Admin Dose 600 MG; Start 11/04/18 at 12:00 Risperidone (Risperdal) 2 mg DAILY GTB Last administered on 11/13/18 09:14; Admin Dose 2 MG; Start 11/04/18 at 14:00 Mupirocin (Bactroban) 1 applic BID TOP Last administered on 11/13/18 09:14; Admin Dose 1 APPLIC; Start 11/05/18 at 12:00 Quetiapine Fumarate (Seroquel) 12.5 mg Q8 PRN GTB AGITATION Last administered on 11/13/18 05:42; Admin Dose 12.5 MG; Start 11/06/18 at 11:00 Diphenhydramine HCl (Benadryl) 25 mg Q6H PRN IV ITCHING Last administered on 11/13/18 06:56; Admin Dose 25 MG; Start 11/06/18 at 18:00 Famotidine (Pepcid) 20 mg BID GTB Last administered on 11/13/18at 09:12; Admin Dose 20 MG; Start 11/07/18 at 09:00 Cefepime HCl 50 ml @ 100 mls/hr Q12 IVPB Last administered on 11/13/18at 09:10; Admin Dose 100 MLS/HR; Start 11/12/18 at 14:00 ISA CRUM Nov 13, 2018 09:24
[2018-11-13] MEDS ORDERED: LORAZEPAM 2 MG INJ IV ONE (10:30)
--- NOTE | 2018-11-13 13:12 | CONS ---
Consult Date/Type/Reason Admit Date/Time November 03, 2018 at 10:30 Initial Consult Date Type of Consultation: Pulm Requesting Provider: BRANDT RAMÍREZ Date/Time of Note DATE: 11/13/18 TIME: 13:09 Subjective No acute events - BP in good range - less agitated now. ROS: No fever, no chills, no nausea, no vomiting, no diarrhea/constipation - less agitated now. Objective Vitals Vital Signs Date Temp Pulse Resp B/P (MAP) Pulse Ox O2 O2 Flow FiO2 Time Delivery Rate 11/13/18 64 12:12 11/13/18 94 5.0 28 11:52 11/13/18 16 Aerosol 11:50 T Tube 11/13/18 98.2 92/60 (71) 11:37 Intake and Output 11/12/18 11/12/18 11/13/18 1515:00 23:00 07:00 IntakeIntake Total 530 ml 70 ml OutputOutput Total 550 ml 1300 ml BalanceBalance -20 ml -1230 ml Exam General: WN/WD/NAD, AOx 0 now sedated HEENT: Unicetric/atraumatic/EOMI (does not follow commands) NECK: trach Lymph: no lymphadenopathy HEART: regular with no S3, II/ systolic murmur at apex LUNGS: Coarse sounds ABD: soft, NT, ND, +BS : Intact, [place] Neuro: non focal SKIN: chronic changes EXT: trace edema Results/Medications Result Diagram: 11/13/18 1048 11/11/18 0522 Results 24 hrs Laboratory Tests Test 11/13/18 10:48 White Blood Count 9.5 # Red Blood Count 4.10 L Hemoglobin 12.7 L Hematocrit 38.4 L Mean Corpuscular Volume 93.7 Mean Corpuscular Hemoglobin 31.0 Mean Corpuscular Hemoglobin Concent 33.1 Red Cell Distribution Width 12.8 Platelet Count 257 Mean Platelet Volume 9.3 Immature Granulocytes % 0.900 H Neutrophils % 65.0 Lymphocytes % 18.1 Monocytes % 9.0 Eosinophils % 5.9 Basophils % 1.1 Nucleated Red Blood Cells % 0.0 Immature Granulocytes # 0.090 H Neutrophils # 6.2 Lymphocytes # 1.7 Monocytes # 0.9 Eosinophils # 0.6 H Basophils # 0.1 Nucleated Red Blood Cells # 0.0 Home Meds Reported Medications Zinc Sulfate* (Zinc Sulfate*) 220 Mg Tablet, 220 MG GTB DAILY, TAB STOP TAKING 11/21/18 11/03/18 Ascorbic Acid* (Vitamin C*) 500 Mg Capsule.sa, 500 MG GTB DAILY, CAP 11/03/18 Valproic Acid* (Valproic Acid* Liq) 250 Mg/5 Ml Syrup, 10 ML GTB BID, ML 11/03/18 Cran/Vitc/Mannose/Inulin/Brom (Uti-Stat Liquid) 3,875 Mg/30 Ml Liquid, 30 ML GTB DAILY 11/03/18 Acetaminophen* (Acetaminophen*) 500 MG Extra Strength Tablet, 1000 MG GTB Q4H PRN for PAIN -11/21, TAB 11/03/18 Acetaminophen* (Tylenol*) 325 Mg Tablet, 650 MG GTB BID PRN for PAIN AND OR ELEVATED TEMP, TAB 11/03/18 Acetaminophen* (Tylenol*) 325 Mg Tablet, 650 MG GTB Q4H PRN for MILD PAIN LEVEL 1-3, TAB AND FEVER 101F,STOP DATE 12/21/18 11/03/18 Acetaminophen* (Tylenol*) 325 Mg Tablet, 650 MG GTB NEEDED PRN for TRACH TUBE CHANGE, TAB 11/03/18 Risperidone* (Risperdal*) 1 Mg Tablet, 2 MG GTB DAILY, TAB STOP DATE 11/05/18 11/03/18 Amino Acids/Protein Hydrolys (PRO-STAT LIQUID) 30 Ml Liquid.pkt, 30 ML GTB BID 11/03/18 Hydrocodone/Acetaminophen ([place] 5-325 Tablet) 1 Each Tablet, 1 EACH GTB Q6H PRN for PAIN -02/21, TAB 11/03/18 Multivitamin with Minerals (Multivitamins with Minerals) 1 Each Tablet, 1 EACH GTB DAILY, TAB 11/03/18 Magnesium Hydroxide* (Milk Of Magnesia*) 400 Mg/5 Ml Oral.susp, 30 ML GTB NEEDED, ML 11/03/18 Heparin Sodium,Porcine/Pf (HEPARIN SOD 5,000 UNIT/ 0.5 ML) 5,000 Unit/0.5 Ml Vial, 5000 UNIT IJ Q12H, VIAL 11/03/18 Gabapentin* (Gabapentin*) 300 Mg Capsule, 600 MG GTB BID, #180 CAP 11/03/18 Mineral Oil* (Fleet* Mineral Oil Enema) Unknown Strength Oil, 1 APPLIC ND NEEDED PRN for CONSTIPATION, ENEMA 11/03/18 Bisacodyl (Dulcolax) 10 Mg Supp.rect, 10 MG RC PRN, SUPP.RECT 11/03/18 Docusate Sodium* (Colace*) 100 Mg Capsule, 200 MG GTB QHS, #60 CAP 11/03/18 Clonidine Hcl* (Clonidine Hcl*) 0.1 Mg Tab, 0.2 MG GTB Q8H PRN for HTN, TAB HOLD FOR SBPBELOW 110 OR HR BELOW 60 11/03/18 Chlorhexidine Gluconate (Periogard) 473 Ml Mouthwash, 15 ML MM Q12H, BOTTLE 11/03/18 Atorvastatin* (Atorvastatin*) 40 Mg Tablet, 80 MG GTB QHS, #30 TAB 11/03/18 Albuterol Sulfate* (Albuterol Sulfate* Neb) 0.083%-3 Ml Neb, 2.5 MG NEB Q6H PRN for WHEEZING AND SOB, #30 VIAL AND NEEDED Q3H 11/03/18 Lactobacillus Acidophilus/Pect (Acidophilus-Pectin Capsule) 1 Each Capsule, 1 EACH GTB DAILY, CAP 11/03/18 Medications Current Medications Naloxone HCl (Narcan) 1 mg Q2M PRN IV LETHARGY Last administered on 11/03/18at 07:19; Admin Dose 1 MG; Start 11/03/18 at 07:00 IV Flush (NS 3 ml) 3 ml PER PROTOCOL IV ; Start 11/03/18 at 12:00 Ondansetron HCl (Zofran Inj) 4 mg Q6H PRN IV NAUSEA/VOMITING Last administered on 11/07/18at 17:46; Admin Dose 4 MG; Start 11/03/18 at 12:00 Acetaminophen (Tylenol Tab) 650 mg Q6H PRN PO .PAIN 1-3 OR TEMP Last administered on 11/12/18at 08:45; Admin Dose 650 MG; Start 11/03/18 at 12:00 Acetaminophen/ Hydrocodone Bitart ([place] (5/325)) 1 tab Q6H PRN PO .MOD PAIN 4- 6 Last administered on 11/13/18at 10:04; Admin Dose 1 TAB; Start 11/03/18 at 12:00 Docusate Sodium (Colace) 100 mg Q12H PRN PO .CONSTIPATION; Start 11/03/18 at 12:00 Magnesium Hydroxide (Milk Of Mag) 30 ml DAILY PRN PO .CONSTIPATION Last administered on 11/07/18at 17:47; Admin Dose 30 ML; Start 11/03/18 at 12:00 Albuterol/ Ipratropium (Duoneb) 3 ml Q4H RESP THERAPY PRN HHN SHORTNESS OF BREATH Last administered on 11/06/18 05:07; Admin Dose 3 ML; Start 11/03/18 at 12:00 Hydralazine HCl (Apresoline) 10 mg Q6H PRN IV ELEVATED BLOOD PRESSURE; Start 11/03/18 at 12:00 Nitroglycerin (Nitroglycerin (Sl Tab) 0.4 Mg) 1 tab Q5M PRN SL ANGINA; Start 11/03/18 at 12:00 Aspirin (Ecotrin) 325 mg DAILY PO Last administered on 11/13/18 09:14; Admin Dose 325 MG; Start 11/04/18 at 09:00 Ascorbic Acid (Vitamin C) 500 mg DAILY GTB Last administered on 11/13/18 09:10; Admin Dose 500 MG; Start 11/04/18 at 09:00 Atorvastatin Calcium (Lipitor) 80 mg QHS GTB Last administered on 11/12/18 20:19; Admin Dose 80 MG; Start 11/03/18 at 21:00 Bisacodyl (Dulcolax Supp) 10 mg DAILY PRN [place] CONSTIPATION; Start 11/03/18 at 12:00 Chlorhexidine Gluconate (Peridex) 15 ml Q12H MM Last administered on 11/13/18 00:19; Admin Dose 15 ML; Start 11/03/18 at 12:00 Clonidine (Catapres) 0.2 mg Q8H PRN GTB SBP ABOVE 160; Start 11/03/18 at 12:00 Valproate Sodium (Depakene Liquid Cup) 500 mg BID GTB Last administered on 11/13/18 09:10; Admin Dose 500 MG; Start 11/03/18 at 21:00 Zinc Sulfate (Zinc Sulfate) 220 mg DAILY GTB Last administered on 11/13/18 09:14; Admin Dose 220 MG; Start 11/04/18 at 09:00 Lactobacillus Acidophilus/ Rhamnosus (Culturelle) 1 cap DAILY PO Last administered on 11/13/18 09:10; Admin Dose 1 CAP; Start 11/04/18 at 09:00 Multivitamins/ Minerals (Theragran-M) 1 tab DAILY PO Last administered on 9at 09:13; Admin Dose 1 TAB; Start 11/04/18 at 09:00 Enoxaparin Sodium (Lovenox) 70 mg DAILY SC Last administered on 11/13/18 09:15; Admin Dose 70 MG; Start 11/04/18 at 09:00 Metoprolol Tartrate (Lopressor) 25 mg BID PO Last administered on 11/13/18 09:13; Admin Dose 25 MG; Start 11/03/18 at 21:00 Gabapentin (Neurontin) 600 mg BID GTB Last administered on 11/13/18 09:12; Admin Dose 600 MG; Start 11/04/18 at 12:00 Risperidone (Risperdal) 2 mg DAILY GTB Last administered on 11/13/18 09:14; Adm in Dose 2 MG; Start 11/04/18 at 14:00 Mupirocin (Bactroban) 1 applic BID TOP Last administered on 11/13/18 09:14; Admin Dose 1 APPLIC; Start 11/05/18 at 12:00 Quetiapine Fumarate (Seroquel) 12.5 mg Q8 PRN GTB AGITATION Last administered on 11/13/18 05:42; Admin Dose 12.5 MG; Start 11/06/18 at 11:00 Diphenhydramine HCl (Benadryl) 25 mg Q6H PRN IV ITCHING Last administered on 11/13/18 06:56; Admin Dose 25 MG; Start 11/06/18 at 18:00 Famotidine (Pepcid) 20 mg BID GTB Last administered on 11/13/18 09:12; Admin Dose 20 MG; Start 11/07/18 at 09:00 Cefepime HCl 50 ml @ 100 mls/hr Q12 IVPB Last administered on 11/13/18 09:10; Admin Dose 100 MLS/HR; Start 11/12/18 at 14:00 Assessment/Plan Hospital Course (Demo Recall) 1. Positive troponin with upending consistent with non-ST elevation myocardial infarction-Echo EF 50-55 11/03 - no obvious CP - will monitor clinically now,. NO CP now - difficult o access, but apperas to be comfortable. NO intervention currently planned. 2. Abnormal electrocardiogram with incomplete right bundle branch block- now in sinus on tele. TREATED. 3. Tachycardia, mild - witha gition. Rate controlled. 4. Chronic respiratory failure, status post tracheostomy. Con't resp Rx. On meds. 5. Dysphagia, status post G-tube. 6. History of subarachnoid hemorrhage - defer to neuro. 7. History of ventriculoperitoneal shunt. 8. 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 fib over 24 hrs. - rate controlled. Will follow. 9. Hematuria - primary follows. VICENTE XIE MD Nov 13, 2018 13:12
--- NOTE | 2018-11-13 13:31 | PN ---
Date/Time of Note Date/Time of Note DATE: 11/13/18 TIME: 13:28 Assessment/Plan VTE Prophylaxis Risk score (from Ns)>0 risk: 5 SCD applied (from Ns): Yes Pharmacological prophylaxis: LMWH Lines/Catheters IV Catheter Type (from [facility]): [place] Urinary Cath still in place: Yes Reason Cath still needed: other (indicate) (monitor I&O) Assessment/Plan Hospital Course 1. Embolic stroke - brain MRI: showing infarct -Per neurology team, hold off on benzos, continue Seroquel as needed, continue aspirin. 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 pain and fevers. - feedings per ST 2. Hematuria - Hematuria noted 11/08 - - Suspect from pulled ly catheter. Restrains prn 3. Elevated troponins - - signs of non-ST elevation myocardial infarction. - lovenox per cardiology -Continue high dose aspirin and Lipitor, Morphine p.r.n., nitroglycerin p.r. n. 4. Renal insufficiency- improved - Monitor renal panel 5. History of hypertension. - Continue to monitor for now. He is on hydralazine p.r.n. 6. History of high cholesterol. - Continue Lipitor. 7. Tracheostomy placement - continue to wean off ventilator 8. Deep venous thrombosis prophylaxis- Lovenox. 9. History of gastroesophageal reflux disease -- H2 kendall. DISPO/;PLAN: continue to wean off vent per pulmonary. anxiolytics prn. Awaiting possible snf placement Discussed POC with Dr. Reynolds Result Diagram: 11/13/18 1048 11/11/18 0522 Results 24hrs Laboratory Tests Test 11/13/18 10:48 White Blood Count 9.5 # Red Blood Count 4.10 L Hemoglobin 12.7 L Hematocrit 38.4 L Mean Corpuscular Volume 93.7 Mean Corpuscular Hemoglobin 31.0 Mean Corpuscular Hemoglobin Concent 33.1 Red Cell Distribution Width 12.8 Platelet Count 257 Mean Platelet Volume 9.3 Immature Granulocytes % 0.900 H Neutrophils % 65.0 Lymphocytes % 18.1 Monocytes % 9.0 Eosinophils % 5.9 Basophils % 1.1 Nucleated Red Blood Cells % 0.0 Immature Granulocytes # 0.090 H Neutrophils # 6.2 Lymphocytes # 1.7 Monocytes # 0.9 Eosinophils # 0.6 H Basophils # 0.1 Nucleated Red Blood Cells # 0.0 Subjective 24 Hr Interval Summary Free Text/Dictation was reportedly anxious this morning. better after receiving anxiolytic. no s/s of distress Exam/Review of Systems Exam Vitals Vital Signs Date Temp Pulse Resp B/P (MAP) Pulse Ox O2 O2 Flow FiO2 Time Delivery Rate 11/13/18 64 12:12 11/13/18 94 5.0 28 11:52 11/13/18 16 Aerosol 11:50 T Tube 11/13/18 98.2 92/60 (71) 11:37 Intake and Output 11/12/18 11/12/18 11/13/18 1515:00 23:00 07:00 IntakeIntake Total 530 ml 70 ml OutputOutput Total 550 ml 1300 ml BalanceBalance -20 ml -1230 ml Exam Constitutional: alert, nonverbal Head: normocephalic Eyes: nl conjunctiva Neck: supple, non-tender Respiratory: other (minimal congestion, with trach to vent ) Gastrointestinal: soft, non-tender, other (peg tube in place ) Musculoskeletal: swelling (minimal ble ) Skin: other (minimal swelling BLE ) Results Results 24hrs Laboratory Tests Test 11/13/18 10:48 White Blood Count 9.5 # Red Blood Count 4.10 L Hemoglobin 12.7 L Hematocrit 38.4 L Mean Corpuscular Volume 93.7 Mean Corpuscular Hemoglobin 31.0 Mean Corpuscular Hemoglobin Concent 33.1 Red Cell Distribution Width 12.8 Platelet Count 257 Mean Platelet Volume 9.3 Immature Granulocytes % 0.900 H Neutrophils % 65.0 Lymphocytes % 18.1 Monocytes % 9.0 Eosinophils % 5.9 Basophils % 1.1 Nucleated Red Blood Cells % 0.0 Immature Granulocytes # 0.090 H Neutrophils # 6.2 Lymphocytes # 1.7 Monocytes # 0.9 Eosinophils # 0.6 H Basophils # 0.1 Nucleated Red Blood Cells # 0.0 Medications Medication Current Medications Naloxone HCl (Narcan) 1 mg Q2M PRN IV LETHARGY Last administered on 11/03/18at 07:19; Admin Dose 1 MG; Start 11/03/18 at 07:00 IV Flush (NS 3 ml) 3 ml PER PROTOCOL IV ; Start 11/03/18 at 12:00 Ondansetron HCl (Zofran Inj) 4 mg Q6H PRN IV NAUSEA/VOMITING Last administered on 11/07/18 17:46; Admin Dose 4 MG; Start 11/03/18 at 12:00 Acetaminophen (Tylenol Tab) 650 mg Q6H PRN PO .PAIN 1-3 OR TEMP Last admin istered on 11/12/18 08:45; Admin Dose 650 MG; Start 11/03/18 at 12:00 Acetaminophen/ Hydrocodone Bitart ([place] (5/325)) 1 tab Q6H PRN PO .MOD PAIN 4- 6 Last administered on 11/13/18 10:04; Admin Dose 1 TAB; Start 11/03/18 at 12:00 Docusate Sodium (Colace) 100 mg Q12H PRN PO .CONSTIPATION; Start 11/03/18 at 12:00 Magnesium Hydroxide (Milk Of Mag) 30 ml DAILY PRN PO .CONSTIPATION Last administered on 11/07/18 17:47; Admin Dose 30 ML; Start 11/03/18 at 12:00 Albuterol/ Ipratropium (Duoneb) 3 ml Q4H RESP THERAPY PRN HHN SHORTNESS OF BREATH Last administered on 11/06/18 05:07; Admin Dose 3 ML; Start 11/03/18 at 12:00 Hydralazine HCl (Apresoline) 10 mg Q6H PRN IV ELEVATED BLOOD PRESSURE; Start 11/03/18 at 12:00 Nitroglycerin (Nitroglycerin (Sl Tab) 0.4 Mg) 1 tab Q5M PRN SL ANGINA; Start 11/03/18 at 12:00 Aspirin (Ecotrin) 325 mg DAILY PO Last administered on 11/13/18 09:14; Admin Dose 325 MG; Start 11/04/18 at 09:00 Ascorbic Acid (Vitamin C) 500 mg DAILY GTB Last administered on 11/13/18 09:10; Admin Dose 500 MG; Start 11/04/18 at 09:00 Atorvastatin Calcium (Lipitor) 80 mg QHS GTB Last administered on 11/12/18 20:19; Admin Dose 80 MG; Start 11/03/18 at 21:00 Bisacodyl (Dulcolax Supp) 10 mg DAILY PRN [place] CONSTIPATION; Start 11/03/18 at 12:00 Chlorhexidine Gluconate (Peridex) 15 ml Q12H MM Last administered on 11/13/18 00:19; Admin Dose 15 ML; Start 11/03/18 at 12:00 Clonidine (Catapres) 0.2 mg Q8H PRN GTB SBP ABOVE 160; Start 11/03/18 at 12:00 Valproate Sodium (Depakene Liquid Cup) 500 mg BID GTB Last administered on 11/13/18 09:10; Admin Dose 500 MG; Start 11/03/18 at 21:00 Zinc Sulfate (Zinc Sulfate) 220 mg DAILY GTB Last administered on 11/13/18 09:14; Admin Dose 220 MG; Start 11/04/18 at 09:00 Lactobacillus Acidophilus/ Rhamnosus (Culturelle) 1 cap DAILY PO Last administered on 11/13/18 09:10; Admin Dose 1 CAP; Start 11/04/18 at 09:00 Multivitamins/ Minerals (Theragran-M) 1 tab DAILY PO Last administered on 11/13/18 09:13; Admin Dose 1 TAB; Start 11/04/18 at 09:00 Enoxaparin Sodium (Lovenox) 70 mg DAILY SC Last administered on 11/13/18 09:15; Admin Dose 70 MG; Start 11/04/18 at 09:00 Metoprolol Tartrate (Lopressor) 25 mg BID PO Last administered on 11/13/18 09:13; Admin Dose 25 MG; Start 11/03/18 at 21:00 Gabapentin (Neurontin) 600 mg BID GTB Last administered on 11/13/18 09:12; Admin Dose 600 MG; Start 11/04/18 at 12:00 Risperidone (Risperdal) 2 mg DAILY GTB Last administered on 11/13/18 09:14; Admin Dose 2 MG; Start 11/04/18 at 14:00 Mupirocin (Bactroban) 1 applic BID TOP Last administered on 11/13/18 09:14; Admin Dose 1 APPLIC; Start 11/05/18 at 12:00 Quetiapine Fumarate (Seroquel) 12.5 mg Q8 PRN GTB AGITATION Last administered on 11/13/18 05:42; Admin Dose 12.5 MG; Start 11/06/18 at 11:00 Diphenhydramine HCl (Benadryl) 25 mg Q6H PRN IV ITCHING Last administered on 11/13/18at 06:56; Admin Dose 25 MG; Start 11/06/18 at 18:00 Famotidine (Pepcid) 20 mg BID GTB Last administered on 11/13/18at 09:12; Admin Dose 20 MG; Start 11/07/18 at 09:00 Cefepime HCl 50 ml @ 100 mls/hr Q12 IVPB Last administered on 11/13/18at 09:10; Admin Dose 100 MLS/HR; Start 11/12/18 at 14:00 NICOLE LAN NP Nov 13, 2018 13:31
--- NOTE | 2018-11-13 15:32 | CONS ---
Assessment/Plan Assessment/Plan Hospital Course (Demo Recall) No acute changes. Hematuria persists. No fevers. WBC 9.5 no shift no bands. BUN 9 creatinine 0.61. Microbiology: Urine culture pending. Antimicrobials: Cefepime. Indwelling's: Trach PEG Higgins Physical examination: This is a chronically ill-appearing middle-aged man who is noncommunicative the patient is in no distress. Head atraumatic normocephalic. Neck is supple. Tracheostomy present. Chest rise symmetrical, breath sounds diminished to bases. Heart: S1-S2. Abdomen soft bowel sounds present. Patient has Higgins catheter with bloody urine. Extremities without cyanosis. Assessment: 1. Hematuria rule out UTI, rule out other etiologies 2. Status post pneumonia 3. Chronic respiratory failure and dysphagia 4. Status post coag negative staph bacteremia on admission consistent with contaminant 5. Chronic encephalopathy, history of subarachnoid hemorrhage Plan: Patient is clinically unchanged, pending urology evaluation Consultation Date/Type/Reason Admit Date/Time November 03, 2018 at 10:30 Initial Consult Date Type of Consult id Requesting Provider: BRANDT RAMÍREZ Date/Time of Note DATE: 11/13/18 TIME: 15:31 Exam/Review of Systems Exam Vitals Vital Signs Date Temp Pulse Resp B/P (MAP) Pulse Ox O2 O2 Flow FiO2 Time Delivery Rate 11/13/18 98.2 53 18 93/59 (70) 100 14:57 11/13/18 5.0 28 11:52 11/13/18 Aerosol 11:50 T Tube Intake and Output 11/12/18 11/12/18 11/13/18 1515:00 23:00 07:00 IntakeIntake Total 530 ml 70 ml OutputOutput Total 550 ml 1300 ml BalanceBalance -20 ml -1230 ml Results Result Diagram: 11/13/18 1048 11/11/18 0522 Results 24hrs Laboratory Tests Test 11/13/18 10:48 White Blood Count 9.5 # Red Blood Count 4.10 L Hemoglobin 12.7 L Hematocrit 38.4 L Mean Corpuscular Volume 93.7 Mean Corpuscular Hemoglobin 31.0 Mean Corpuscular Hemoglobin Concent 33.1 Red Cell Distribution Width 12.8 Platelet Count 257 Mean Platelet Volume 9.3 Immature Granulocytes % 0.900 H Neutrophils % 65.0 Lymphocytes % 18.1 Monocytes % 9.0 Eosinophils % 5.9 Basophils % 1.1 Nucleated Red Blood Cells % 0.0 Immature Granulocytes # 0.090 H Neutrophils # 6.2 Lymphocytes # 1.7 Monocytes # 0.9 Eosinophils # 0.6 H Basophils # 0.1 Nucleated Red Blood Cells # 0.0 Medications Medication Current Medications Naloxone HCl (Narcan) 1 mg Q2M PRN IV LETHARGY Last administered on 11/03/18at 07:19; Admin Dose 1 MG; Start 11/03/18 at 07:00 IV Flush (NS 3 ml) 3 ml PER PROTOCOL IV ; Start 11/03/18 at 12:00 Ondansetron HCl (Zofran Inj) 4 mg Q6H PRN IV NAUSEA/VOMITING Last administered on 11/07/18at 17:46; Admin Dose 4 MG; Start 11/03/18 at 12:00 Acetaminophen (Tylenol Tab) 650 mg Q6H PRN PO .PAIN 1-3 OR TEMP Last administered on 11/12/18at 08:45; Admin Dose 650 MG; Start 11/03/18 at 12:00 Acetaminophen/ Hydrocodone Bitart ([place] (5/325)) 1 tab Q6H PRN PO .MOD PAIN 4- 6 Last administered on 11/13/18at 10:04; Admin Dose 1 TAB; Start 11/03/18 at 12:00 Docusate Sodium (Colace) 100 mg Q12H PRN PO .CONSTIPATION; Start 11/03/18 at 12:00 Magnesium Hydroxide (Milk Of Mag) 30 ml DAILY PRN PO .CONSTIPATION Last administered on 11/07/18at 17:47; Admin Dose 30 ML; Start 11/03/18 at 12:00 Albuterol/ Ipratropium (Duoneb) 3 ml Q4H RESP THERAPY PRN HHN SHORTNESS OF BREATH Last administered on 11/06/18at 05:07; Admin Dose 3 ML; Start 11/03/18 at 12:00 Hydralazine HCl (Apresoline) 10 mg Q6H PRN IV ELEVATED BLOOD PRESSURE; Start 11/03/18 at 12:00 Nitroglycerin (Nitroglycerin (Sl Tab) 0.4 Mg) 1 tab Q5M PRN SL ANGINA; Start 11/03/18 at 12:00 Aspirin (Ecotrin) 325 mg DAILY PO Last administered on 11/13/18 09:14; Admin Dose 325 MG; Start 11/04/18 at 09:00 Ascorbic Acid (Vitamin C) 500 mg DAILY GTB Last administered on 11/13/18 09:10; Admin Dose 500 MG; Start 11/04/18 at 09:00 Atorvastatin Calcium (Lipitor) 80 mg QHS GTB Last administered on 11/12/18 20:19; Admin Dose 80 MG; Start 11/03/18 at 21:00 Bisacodyl (Dulcolax Supp) 10 mg DAILY PRN [place] CONSTIPATION; Start 11/03/18 at 12:00 Chlorhexidine Gluconate (Peridex) 15 ml Q12H MM Last administered on 11/13/18 13:38; Admin Dose 15 ML; Start 11/03/18 at 12:00 Clonidine (Catapres) 0.2 mg Q8H PRN GTB SBP ABOVE 160; Start 11/03/18 at 12:00 Valproate Sodium (Depakene Liquid Cup) 500 mg BID GTB Last administered on 11/13/18 09:10; Admin Dose 500 MG; Start 11/03/18 at 21:00 Zinc Sulfate (Zinc Sulfate) 220 mg DAILY GTB Last administered on 11/13/18 09:14; Admin Dose 220 MG; Start 11/04/18 at 09:00 Lactobacillus Acidophilus/ Rhamnosus (Culturelle) 1 cap DAILY PO Last admi nistered on 11/13/18 09:10; Admin Dose 1 CAP; Start 11/04/18 at 09:00 Multivitamins/ Minerals (Theragran-M) 1 tab DAILY PO Last administered on 11/13/18 09:13; Admin Dose 1 TAB; Start 11/04/18 at 09:00 Enoxaparin Sodium (Lovenox) 70 mg DAILY SC Last administered on 11/13/18 09:15; Admin Dose 70 MG; Start 11/04/18 at 09:00 Metoprolol Tartrate (Lopressor) 25 mg BID PO Last administered on 11/13/18 09:13; Admin Dose 25 MG; Start 11/03/18 at 21:00 Gabapentin (Neurontin) 600 mg BID GTB Last administered on 11/13/18 09:12; Admin Dose 600 MG; Start 11/04/18 at 12:00 Risperidone (Risperdal) 2 mg DAILY GTB Last administered on 11/13/18 09:14; Admin Dose 2 MG; Start 11/04/18 at 14:00 Mupirocin (Bactroban) 1 applic BID TOP Last administered on 11/13/18 09:14; Admin Dose 1 APPLIC; Start 11/05/18 at 12:00 Quetiapine Fumarate (Seroquel) 12.5 mg Q8 PRN GTB AGITATION Last administered on 11/13/18 05:42; Admin Dose 12.5 MG; Start 11/06/18 at 11:00 Diphenhydramine HCl (Benadryl) 25 mg Q6H PRN IV ITCHING Last administered on 11/13/18 06:56; Admin Dose 25 MG; Start 11/06/18 at 18:00 Famotidine (Pepcid) 20 mg BID GTB Last administered on 11/13/18 09:12; Admin Dose 20 MG; Start 11/07/18 at 09:00 Cefepime HCl 50 ml @ 100 mls/hr Q12 IVPB Last administered on 11/13/18 09:10; Admin Dose 100 MLS/HR; Start 11/12/18 at 14:00 AIMEE BRADSHAW NP Nov 13, 2018 15:32
[2018-11-13] MEDS: ATORVASTATIN 40 MG TAB GTB SCH (21:56)
--- NOTE | 2018-11-13 22:20 | CONS ---
Consult Date/Type/Reason Admit Date/Time November 03, 2018 at 10:30 Initial Consult Date Type of Consultation: Pulm Requesting Provider: BRANDT RAMÍREZ Date/Time of Note DATE: 11/13/18 TIME: 22:19 Subjective No events overnight. Objective Vitals Vital Signs Date Temp Pulse Resp B/P (MAP) Pulse Ox O2 O2 Flow FiO2 Time Delivery Rate 11/13/18 98.5 56 18 93/58 (70) 100 20:56 11/13/18 5.0 28 18:32 11/13/18 Aerosol 11:50 T Tube Intake and Output 11/12/18 11/12/18 11/13/18 1515:00 23:00 07:00 IntakeIntake Total 530 ml 70 ml OutputOutput Total 550 ml 1300 ml BalanceBalance -20 ml -1230 ml Exam GENERAL: Chronically ill-appearing gentleman, comfortable at rest, no acute distress. VITAL SIGNS: Currently afebrile, pulse is 55, blood pressure 117/75, O2 saturation 96% on FIO2 of 40%. NECK: Trach site clean and intact. CARDIAC: S1, S2, no added sounds or murmurs. CHEST: Diminished air entry bilaterally. ABDOMEN: Soft and nontender. No guarding or rebound. EXTREMITIES: No cyanosis, clubbing or edema. NEUROLOGIC: Generalized weakness. Results/Medications Result Diagram: 11/13/18 1048 11/11/18 0522 Results 24 hrs Laboratory Tests Test 11/13/18 10:48 White Blood Count 9.5 # Red Blood Count 4.10 L Hemoglobin 12.7 L Hematocrit 38.4 L Mean Corpuscular Volume 93.7 Mean Corpuscular Hemoglobin 31.0 Mean Corpuscular Hemoglobin Concent 33.1 Red Cell Distribution Width 12.8 Platelet Count 257 Mean Platelet Volume 9.3 Immature Granulocytes % 0.900 H Neutrophils % 65.0 Lymphocytes % 18.1 Monocytes % 9.0 Eosinophils % 5.9 Basophils % 1.1 Nucleated Red Blood Cells % 0.0 Immature Granulocytes # 0.090 H Neutrophils # 6.2 Lymphocytes # 1.7 Monocytes # 0.9 Eosinophils # 0.6 H Basophils # 0.1 Nucleated Red Blood Cells # 0.0 Home Meds Reported Medications Zinc Sulfate* (Zinc Sulfate*) 220 Mg Tablet, 220 MG GTB DAILY, TAB STOP TAKING 11/21/18 11/03/18 Ascorbic Acid* (Vitamin C*) 500 Mg Capsule.sa, 500 MG GTB DAILY, CAP 11/03/18 Valproic Acid* (Valproic Acid* Liq) 250 Mg/5 Ml Syrup, 10 ML GTB BID, ML 11/03/18 Cran/Vitc/Mannose/Inulin/Brom (Uti-Stat Liquid) 3,875 Mg/30 Ml Liquid, 30 ML GTB DAILY 11/03/18 Acetaminophen* (Acetaminophen*) 500 MG Extra Strength Tablet, 1000 MG GTB Q4H PRN for PAIN 4-11/21, TAB 11/03/18 Acetaminophen* (Tylenol*) 325 Mg Tablet, 650 MG GTB BID PRN for PAIN AND OR ELEVATED TEMP, TAB 11/03/18 Acetaminophen* (Tylenol*) 325 Mg Tablet, 650 MG GTB Q4H PRN for MILD PAIN LEVEL 1-3, TAB AND FEVER 101F,STOP DATE 12/21/18 11/03/18 Acetaminophen* (Tylenol*) 325 Mg Tablet, 650 MG GTB NEEDED PRN for TRACH TUBE CHANGE, TAB 11/03/18 Risperidone* (Risperdal*) 1 Mg Tablet, 2 MG GTB DAILY, TAB STOP DATE 11/05/18 11/03/18 Amino Acids/Protein Hydrolys (PRO-STAT LIQUID) 30 Ml Liquid.pkt, 30 ML GTB BID 11/03/18 Hydrocodone/Acetaminophen ([place] 5-325 Tablet) 1 Each Tablet, 1 EACH GTB Q6H PRN for PAIN -02/21, TAB 11/03/18 Multivitamin with Minerals (Multivitamins with Minerals) 1 Each Tablet, 1 EACH GTB DAILY, TAB 11/03/18 Magnesium Hydroxide* (Milk Of Magnesia*) 400 Mg/5 Ml Oral.susp, 30 ML GTB NEEDED, ML 11/03/18 Heparin Sodium,Porcine/Pf (HEPARIN SOD 5,000 UNIT/ 0.5 ML) 5,000 Unit/0.5 Ml Vial, 5000 UNIT IJ Q12H, VIAL 11/03/18 Gabapentin* (Gabapentin*) 300 Mg Capsule, 600 MG GTB BID, #180 CAP 11/03/18 Mineral Oil* (Fleet* Mineral Oil Enema) Unknown Strength Oil, 1 APPLIC DE NEEDED PRN for CONSTIPATION, ENEMA 11/03/18 Bisacodyl (Dulcolax) 10 Mg Supp.rect, 10 MG RC PRN, SUPP.RECT 11/03/18 Docusate Sodium* (Colace*) 100 Mg Capsule, 200 MG GTB QHS, #60 CAP 11/03/18 Clonidine Hcl* (Clonidine Hcl*) 0.1 Mg Tab, 0.2 MG GTB Q8H PRN for HTN, TAB HOLD FOR SBPBELOW 110 OR HR BELOW 60 11/03/18 Chlorhexidine Gluconate (Periogard) 473 Ml Mouthwash, 15 ML MM Q12H, BOTTLE 11/03/18 Atorvastatin* (Atorvastatin*) 40 Mg Tablet, 80 MG GTB QHS, #30 TAB 11/03/18 Albuterol Sulfate* (Albuterol Sulfate* Neb) 0.083%-3 Ml Neb, 2.5 MG NEB Q6H PRN for WHEEZING AND SOB, #30 VIAL AND NEEDED Q3H 11/03/18 Lactobacillus Acidophilus/Pect (Acidophilus-Pectin Capsule) 1 Each Capsule, 1 EACH GTB DAILY, CAP 11/03/18 Medications Current Medications Naloxone HCl (Narcan) 1 mg Q2M PRN IV LETHARGY Last administered on 11/03/18at 07:19; Admin Dose 1 MG; Start 11/03/18 at 07:00 IV Flush (NS 3 ml) 3 ml PER PROTOCOL IV ; Start 11/03/18 at 12:00 Ondansetron HCl (Zofran Inj) 4 mg Q6H PRN IV NAUSEA/VOMITING Last administered on 11/07/18at 17:46; Admin Dose 4 MG; Start 11/03/18 at 12:00 Acetaminophen (Tylenol Tab) 650 mg Q6H PRN PO .PAIN 1-3 OR TEMP Last administered on 11/12/18at 08:45; Admin Dose 650 MG; Start 11/03/18 at 12:00 Acetaminophen/ Hydrocodone Bitart ([place] (5/325)) 1 tab Q6H PRN PO .MOD PAIN 4- 6 Last administered on 11/13/18at 10:04; Admin Dose 1 TAB; Start 11/03/18 at 12:00 Docusate Sodium (Colace) 100 mg Q12H PRN PO .CONSTIPATION; Start 11/03/18 at 12:00 Magnesium Hydroxide (Milk Of Mag) 30 ml DAILY PRN PO .CONSTIPATION Last administered on 11/07/18 17:47; Admin Dose 30 ML; Start 11/03/18 at 12:00 Albuterol/ Ipratropium (Duoneb) 3 ml Q4H RESP THERAPY PRN HHN SHORTNESS OF BREATH Last administered on 11/06/18 05:07; Admin Dose 3 ML; Start 11/03/18 at 12:00 Hydralazine HCl (Apresoline) 10 mg Q6H PRN IV ELEVATED BLOOD PRESSURE; Start 11/03/18 at 12:00 Nitroglycerin (Nitroglycerin (Sl Tab) 0.4 Mg) 1 tab Q5M PRN SL ANGINA; Start 11/03/18 at 12:00 Aspirin (Ecotrin) 325 mg DAILY PO Last administered on 11/13/18 09:14; Admin Dose 325 MG; Start 11/04/18 at 09:00 Ascorbic Acid (Vitamin C) 500 mg DAILY GTB Last administered on 11/13/18 09:10; Admin Dose 500 MG; Start 11/04/18 at 09:00 Atorvastatin Calcium (Lipitor) 80 mg QHS GTB Last administered on 11/12/18 20:19; Admin Dose 80 MG; Start 11/03/18 at 21:00 Bisacodyl (Dulcolax Supp) 10 mg DAILY PRN [place] CONSTIPATION; Start 11/03/18 at 12:00 Chlorhexidine Gluconate (Peridex) 15 ml Q12H MM Last administered on 11/13/18at 13:38; Admin Dose 15 ML; Start 11/03/18 at 12:00 Clonidine (Catapres) 0.2 mg Q8H PRN GTB SBP ABOVE 160; Start 11/03/18 at 12:00 Valproate Sodium (Depakene Liquid Cup) 500 mg BID GTB Last administered on 11/13/18 09:10; Admin Dose 500 MG; Start 11/03/18 at 21:00 Zinc Sulfate (Zinc Sulfate) 220 mg DAILY GTB Last administered on 11/13/18 09:14; Admin Dose 220 MG; Start 11/04/18 at 09:00 Lactobacillus Acidophilus/ Rhamnosus (Culturelle) 1 cap DAILY PO Last administered on 11/13/18 09:10; Admin Dose 1 CAP; Start 11/04/18 at 09:00 Multivitamins/ Minerals (Theragran-M) 1 tab DAILY PO Last administered on 11/13/18 09:13; Admin Dose 1 TAB; Start 11/04/18 at 09:00 Enoxaparin Sodium (Lovenox) 70 mg DAILY SC Last administered on 11/13/18 09:15; Admin Dose 70 MG; Start 11/04/18 at 09:00 Metoprolol Tartrate (Lopressor) 25 mg BID PO Last administered on 11/13/18 09:13; Admin Dose 25 MG; Start 11/03/18 at 21:00 Gabapentin (Neurontin) 600 mg BID GTB Last administered on 11/13/18 09:12; Admin Dose 600 MG; Start 11/04/18 at 12:00 Risperidone (Risperdal) 2 mg DAILY GTB Last administered on 11/13/18 09:14; Admin Dose 2 MG; Start 11/04/18 at 14:00 Mupirocin (Bactroban) 1 applic BID TOP Last administered on 11/13/18 09:14; Adm in Dose 1 APPLIC; Start 11/05/18 at 12:00 Quetiapine Fumarate (Seroquel) 12.5 mg Q8 PRN GTB AGITATION Last administered on 11/13/18 18:12; Admin Dose 12.5 MG; Start 11/06/18 at 11:00 Diphenhydramine HCl (Benadryl) 25 mg Q6H PRN IV ITCHING Last administered on 11/13/18 06:56; Admin Dose 25 MG; Start 11/06/18 at 18:00 Famotidine (Pepcid) 20 mg BID GTB Last administered on 11/13/18 09:12; Admin Do se 20 MG; Start 11/07/18 at 09:00 Cefepime HCl 50 ml @ 100 mls/hr Q12 IVPB Last administered on 11/13/18 09:10; Admin Dose 100 MLS/HR; Start 11/12/18 at 14:00 Assessment/Plan Assessment/Plan (Daily) IMP: 1. 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 2. Recent embolic stroke. 3. Hematuria and bacteremia. 4. Elevated troponin, likely type 2 non-ST elevation myocardial infarction. 5. Hyperlipidemia. 6. Chronic respiratory failure, tracheostomy. RECS: 1. Continue antibiotics as per ID 2. Continue tube feeding. 3. BD's/CPT/T-tube 4. DVT and GI prophylaxis. TONI RIBERA MD Nov 13, 2018 22:20
[2018-11-14] VITALS (15 sets, daily range): BP systolic 95–139; BP diastolic 51–94; PULSE 52–92; RESP 18–22
[2018-11-14] MEDS: CHLORHEXIDINE GLUCONATE 15 ML UD CUP MM SCH ×3 (01:15→23:34)
[2018-11-14] MEDS: QUETIAPINE 25 MG TAB GTB PRN ×2 (05:21→20:53)
[2018-11-14] MEDS: DIPHENHYDRAMINE 50 MG INJ IV PRN ×2 (05:22→20:53)
[2018-11-14] MEDS: CEFEPIME 1GM/50 ML (PMX) 50 ML IVPB SCH ×2 (09:33→20:51)
[2018-11-14] MEDS: MUPIROCIN 2% 22 GM OINT TOP SCH ×2 (09:33→20:54)
[2018-11-14] MEDS: ZINC SULFATE 220 MG CAP GTB SCH (09:36)
[2018-11-14] MEDS: ASCORBIC ACID 500 MG TAB GTB SCH (09:36)
[2018-11-14] MEDS: MULTIVITAMINS/MINERALS TAB PO SCH (09:36)
[2018-11-14] MEDS: VALPROIC ACID LIQUID CUP 250 MG/5 ML CUP GTB SCH ×2 (09:36→20:52)
[2018-11-14] MEDS: RISPERIDONE 2 MG TAB GTB SCH (09:36)
[2018-11-14] MEDS: ASPIRIN (EC) 325 MG TAB PO SCH (09:36)
[2018-11-14] MEDS: LACTOBACILLUS RHAMNOSUS CAP PO SCH (09:36)
[2018-11-14] MEDS: GABAPENTIN 300 MG CAP GTB SCH ×2 (09:36→20:53)
[2018-11-14] MEDS: FAMOTIDINE 20 MG TAB GTB SCH ×2 (09:36→20:53)
[2018-11-14] MEDS: METOPROLOL 25 MG TAB PO SCH ×2 (09:37→20:53)
[2018-11-14] MEDS: ENOXAPARIN 80 MG/0.8 ML SYG SC SCH (09:38)
--- NOTE | 2018-11-14 10:32 | PN ---
Date/Time of Note Date/Time of Note DATE: 11/14/18 TIME: 10:18 Assessment/Plan VTE Prophylaxis Risk score (from Ns)>0 risk: 4 SCD applied (from Ns): Yes Pharmacological prophylaxis: LMWH Lines/Catheters IV Catheter Type (from Nrs): Saline Lock Urinary Cath still in place: Yes Reason Cath still needed: other (indicate) (monitor I&O) Assessment/Plan Hospital Course 1. Embolic stroke - brain MRI: showing infarct - Per neurology team, hold off on benzos, continue Seroquel as needed, continue aspirin. 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 pain and fevers. - feedings per ST 2. Hematuria - Hematuria - will get urologist consultation - hold lovenox for now - Suspect from pulled ly catheter. Restrains prn 3. Elevated troponins - - signs of non-ST elevation myocardial infarction. - cardiology following - Continue high dose aspirin and Lipitor, Morphine p.r.n., nitroglycerin p.r.n. 4. Renal insufficiency- improved - Monitor renal panel 5. History of hypertension. - Continue to monitor for now. He is on hydralazine p.r.n. 6. History of high cholesterol. - Continue Lipitor. 7. Tracheostomy placement - continue to wean off ventilator 8. Deep venous thrombosis prophylaxis 9. History of gastroesophageal reflux disease -- H2 kendall. DISPO/;PLAN: hold lovenox for now. urologist consult to follow. monitor H&H. continue inhouse monitoring. f/u labs Discussed POC with Dr. Hernandez Result Diagram: 11/14/1852911/14/1830 Results 24hrs Laboratory Tests Test 11/13/18 10:48 11/14/18 05:30 11/14/18 06:30 11/14/18 08:44 White Blood Count 9.5 # 10.1 Red Blood Count 4.10 L 4.26 L Hemoglobin 12.7 L 13.4 L Hematocrit 38.4 L 40.1 L Mean Corpuscular 93.7 94.1 Volume Mean Corpuscular 31.0 31.5 Hemoglobin Mean Corpuscular 33.1 33.4 Hemoglobin Concen t Red Cell 12.8 12.9 Distribution Width Platelet Count 257 249 Mean Platelet 9.3 9.3 Volume Immature 0.900 H 1.000 H Granulocytes % Neutrophils % 65.0 65.4 Lymphocytes % 18.1 20.6 Monocytes % 9.0 7.6 Eosinophils % 5.9 4.6 Basophils % 1.1 0.8 Nucleated Red 0.0 0.0 Blood Cells % Immature 0.090 H 0.100 H Granulocytes # Neutrophils # 6.2 6.6 Lymphocytes # 1.7 2.1 Monocytes # 0.9 0.8 Eosinophils # 0.6 H 0.5 Basophils # 0.1 0.1 Nucleated Red 0.0 0.0 Blood Cells # Sodium Level 142 Potassium Level 3.8 Chloride Level 102 Carbon Dioxide 29 Level Anion Gap 11 Blood Urea 10 Nitrogen Creatinine 0.65 Est Glomerular > 60 Filtrat Rate mL/min Glucose Level 83 Calcium Level 9.2 Urine Color RED Urine Clarity SLIGHTLY CLOUDY A Urine pH 7.0 Urine Specific 1.011 [place] Urine Ketones NEGATIVE Urine Nitrite POSITIVE A Urine Bilirubin NEGATIVE Urine NEGATIVE Urobilinogen Urine Leukocyte NEGATIVE Esterase Urine Microscopic > 182 H RBC Urine Microscopic 10 H WBC Urine Mucus FEW A Urine Hemoglobin 2+ H Urine Glucose 1+ H Urine Total 2+ H Protein Lab Scanned REFERENCE LAB Report Subjective 24 Hr Interval Summary Free Text/Dictation no s/s of respiratory distress. little anxious Exam/Review of Systems Exam Vitals Vital Signs Date Temp Pulse Resp B/P (MAP) Pulse Ox O2 O2 Flow FiO2 Time Delivery Rate 11/14/18 98.0 92 20 139/94 95 10:00 (109) 11/14/18 5.0 28 09:48 11/14/18 Trach 06:00 Collar Intake and Output 11/13/18 11/13/18 11/14/18 1515:00 23:00 07:00 IntakeIntake Total 830 ml 200 ml OutputOutput Total 1100 ml BalanceBalance 830 ml -900 ml Constitutional: alert, oriented (alert to person) Neck: other (trach in place) Respiratory: other (no obvious wheezing/rhonchi) Gastrointestinal: other (peg tube in place) Genitourinary - Male: other (ly catheter with reddish urine) Extremities: No edema Results Results 24hrs Laboratory Tests Test 11/13/18 10:48 11/14/18 05:30 6/3/19 06:30 11/14/18 08:44 White Blood Count 9.5 # 10.1 Red Blood Count 4.10 L 4.26 L Hemoglobin 12.7 L 13.4 L Hematocrit 38.4 L 40.1 L Mean Corpuscular 93.7 94.1 Volume Mean Corpuscular 31.0 31.5 Hemoglobin Mean Corpuscular 33.1 33.4 Hemoglobin Concen t Red Cell 12.8 12.9 Distribution Width Platelet Count 257 249 Mean Platelet 9.3 9.3 Volume Immature 0.900 H 1.000 H Granulocytes % Neutrophils % 65.0 65.4 Lymphocytes % 18.1 20.6 Monocytes % 9.0 7.6 Eosinophils % 5.9 4.6 Basophils % 1.1 0.8 Nucleated Red 0.0 0.0 Blood Cells % Immature 0.090 H 0.100 H Granulocytes # Neutrophils # 6.2 6.6 Lymphocytes # 1.7 2.1 Monocytes # 0.9 0.8 Eosinophils # 0.6 H 0.5 Basophils # 0.1 0.1 Nucleated Red 0.0 0.0 Blood Cells # Sodium Level 142 Potassium Level 3.8 Chloride Level 102 Carbon Dioxide 29 Level Anion Gap 11 Blood Urea 10 Nitrogen Creatinine 0.65 Est Glomerular > 60 Filtrat Rate mL/min Glucose Level 83 Calcium Level 9.2 Urine Color RED Urine Clarity SLIGHTLY CLOUDY A Urine pH 7.0 Urine Specific 1.011 [place] Urine Ketones NEGATIVE Urine Nitrite POSITIVE A Urine Bilirubin NEGATIVE Urine NEGATIVE Urobilinogen Urine Leukocyte NEGATIVE Esterase Urine Microscopic > 182 H RBC Urine Microscopic 10 H WBC Urine Mucus FEW A Urine Hemoglobin 2+ H Urine Glucose 1+ H Urine Total 2+ H Protein Lab Scanned REFERENCE LAB Report Medications Medication Current Medications Naloxone HCl (Narcan) 1 mg Q2M PRN IV LETHARGY Last administered on 11/03/18at 07:19; Admin Dose 1 MG; Start 11/03/18 at 07:00 IV Flush (NS 3 ml) 3 ml PER PROTOCOL IV ; Start 11/03/18 at 12:00 Ondansetron HCl (Zofran Inj) 4 mg Q6H PRN IV NAUSEA/VOMITING Last administered on 11/07/18at 17:46; Admin Dose 4 MG; Start 11/03/18 at 12:00 Acetaminophen (Tylenol Tab) 650 mg Q6H PRN PO .PAIN 1-3 OR TEMP Last administered on 11/12/18at 08:45; Admin Dose 650 MG; Start 11/03/18 at 12:00 Acetaminophen/ Hydrocodone Bitart ([place] (5/325)) 1 tab Q6H PRN PO .MOD PAIN 4- 6 Last administered on 11/13/18 10:04; Admin Dose 1 TAB; Start 11/03/18 at 12:00 Docusate Sodium (Colace) 100 mg Q12H PRN PO .CONSTIPATION; Start 11/03/18 at 12:00 Magnesium Hydroxide (Milk Of Mag) 30 ml DAILY PRN PO .CONSTIPATION Last administered on 11/07/18at 17:47; Admin Dose 30 ML; Start 11/03/18 at 12:00 Albuterol/ Ipratropium (Duoneb) 3 ml Q4H RESP THERAPY PRN HHN SHORTNESS OF BREATH Last administered on 11/06/18at 05:07; Admin Dose 3 ML; Start 11/03/18 at 12:00 Hydralazine HCl (Apresoline) 10 mg Q6H PRN IV ELEVATED BLOOD PRESSURE; Start 11/03/18 at 12:00 Nitroglycerin (Nitroglycerin (Sl Tab) 0.4 Mg) 1 tab Q5M PRN SL ANGINA; Start 11/03/18 at 12:00 Aspirin (Ecotrin) 325 mg DAILY PO Last administered on 11/14/18 09:36; Admin Dose 325 MG; Start 11/04/18 at 09:00 Ascorbic Acid (Vitamin C) 500 mg DAILY GTB Last administered on 11/14/18 09:36; Admin Dose 500 MG; Start 11/04/18 at 09:00 Atorvastatin Calcium (Lipitor) 80 mg QHS GTB Last administered on 11/13/18at 21:56; Admin Dose 80 MG; Start 11/03/18 at 21:00 Bisacodyl (Dulcolax Supp) 10 mg DAILY PRN [place] CONSTIPATION; Start 11/03/18 at 12:00 Chlorhexidine Gluconate (Peridex) 15 ml Q12H MM Last administered on 11/14/18at 0 1:15; Admin Dose 15 ML; Start 11/03/18 at 12:00 Clonidine (Catapres) 0.2 mg Q8H PRN GTB SBP ABOVE 160; Start 11/03/18 at 12:00 Valproate Sodium (Depakene Liquid Cup) 500 mg BID GTB Last administered on 11/14/18 09:36; Admin Dose 500 MG; Start 11/03/18 at 21:00 Zinc Sulfate (Zinc Sulfate) 220 mg DAILY GTB Last administered on 11/14/18 09:36; Admin Dose 220 MG; Start 11/04/18 at 09:00 Lactobacillus Acidophilus/ Rhamnosus (Culturelle) 1 cap DAILY PO Last administered on 11/14/18 09:36; Admin Dose 1 CAP; Start 11/04/18 at 09:00 Multivitamins/ Minerals (Theragran-M) 1 tab DAILY PO Last administered on 11/14/18 09:36; Admin Dose 1 TAB; Start 11/04/18 at 09:00 Enoxaparin Sodium (Lovenox) 70 mg DAILY SC Last administered on 11/14/18 09:38; Admin Dose 70 MG; Start 11/04/18 at 09:00 Metoprolol Tartrate (Lopressor) 25 mg BID PO Last administered on 11/14/18 09:37; Admin Dose 25 MG; Start 11/03/18 at 21:00 Gabapentin (Neurontin) 600 mg BID GTB Last administered on 11/14/18 09:36; Admin Dose 600 MG; Start 11/04/18 at 12:00 Risperidone (Risperdal) 2 mg DAILY GTB Last administered on 11/14/18 09:36; Admin Dose 2 MG; Start 11/04/18 at 14:00 Mupirocin (Bactroban) 1 applic BID TOP Last administered on 11/14/18 09:33; Admin Dose 1 APPLIC; Start 11/05/18 at 12:00 Quetiapine Fumarate (Seroquel) 12.5 mg Q8 PRN GTB AGITATION Last administered on 11/14/18 05:21; Admin Dose 12.5 MG; Start 11/06/18 at 11:00 Diphenhydramine HCl (Benadryl) 25 mg Q6H PRN IV ITCHING Last administered on 11/14/18 05:22; Admin Dose 25 MG; Start 11/06/18 at 18:00 Famotidine (Pepcid) 20 mg BID GTB Last administered on 11/14/18at 09:36; Admin Dose 20 MG; Start 11/07/18 at 09:00 Cefepime HCl 50 ml @ 100 mls/hr Q12 IVPB Last administered on 11/14/18at 09:33; Admin Dose 100 MLS/HR; Start 11/12/18 at 14:00 NICOLE LAN NP Nov 14, 2018 10:28
--- NOTE | 2018-11-14 11:43 | CONS ---
Assessment/Plan Assessment/Plan Assessment/Plan (Daily) Assessment and recommendations; 1. Patient with history of CVA and chronic respiratory failure maintained on T- piece via tracheostomy admitted for UTI and sepsis. Currently on appropriate antimicrobial regimen. 2. Persistent hematuria. 3. Pneumonia. Pseudomonas isolated from sputum. 4. Bacteremia. Continue current supportive care. Antibiotics per ID recommendations. Consultation Date/Type/Reason Admit Date/Time November 03, 2018 at 10:30 Initial Consult Date Type of Consult Pulmonary Patient condition is fairly stable. Remains awake and alert. Has remained hemodynamically stable. Patient having persistent hematuria. General exam; young male, on T-piece via tracheostomy, awake and responsive. Currently in no distress. Reason for Consultation H EENT exam; supple neck, no JVD. No lymphadenopathy. Midline trachea. No thyromegaly. Tracheostomy place. Attached to T-piece. Patient has fair dentition. No neck masses. Chest exam; clear to auscultation. S1-S2 audible, no murmurs. Regular rhythm. Abdomen exam; soft, nontender. No organomegaly. G-tube in place. Bowel sounds audible. Extremity exam; no peripheral edema. 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 Requesting Provider: BRANDT RAMÍREZ Date/Time of Note DATE: 11/14/18 TIME: 11:41 Exam/Review of Systems Exam Vitals Vital Signs Date Temp Pulse Resp B/P (MAP) Pulse Ox O2 O2 Flow FiO2 Time Delivery Rate 11/14/18 98.0 92 20 139/94 95 10:00 (109) 11/14/18 5.0 28 09:48 11/14/18 Trach 06:00 Collar Intake and Output 11/13/18 11/13/18 11/14/18 1515:00 23:00 07:00 IntakeIntake Total 830 ml 200 ml OutputOutput Total 1100 ml BalanceBalance 830 ml -900 ml Results Result Diagram: 11/14/1830 11/14/18 0530 Results 24hrs Laboratory Tests Test 11/14/18 05:30 11/14/18 06:30 11/14/18 08:44 White Blood Count 10.1 Red Blood Count 4.26 L Hemoglobin 13.4 L Hematocrit 40.1 L Mean Corpuscular Volume 94.1 Mean Corpuscular Hemoglobin 31.5 Mean Corpuscular 33.4 Hemoglobin Concent Red Cell Distribution Width 12.9 Platelet Count 249 Mean Platelet Volume 9.3 Immature Granulocytes % 1.000 H Neutrophils % 65.4 Lymphocytes % 20.6 Monocytes % 7.6 Eosinophils % 4.6 Basophils % 0.8 Nucleated Red Blood Cells % 0.0 Immature Granulocytes # 0.100 H Neutrophils # 6.6 Lymphocytes # 2.1 Monocytes # 0.8 Eosinophils # 0.5 Basophils # 0.1 Nucleated Red Blood Cells # 0.0 Sodium Level 142 Potassium Level 3.8 Chloride Level 102 Carbon Dioxide Level 29 Anion Gap 11 Blood Urea Nitrogen 10 Creatinine 0.65 Est Glomerular Filtrat > 60 Rate mL/min Glucose Level 83 Calcium Level 9.2 Urine Color RED Urine Clarity SLIGHTLY CLOUDY A Urine pH 7.0 Urine Specific [place] 1.011 Urine Ketones NEGATIVE Urine Nitrite POSITIVE A Urine Bilirubin NEGATIVE Urine Urobilinogen NEGATIVE Urine Leukocyte Esterase NEGATIVE Urine Microscopic RBC > 182 H Urine Microscopic WBC 10 H Urine Mucus FEW A Urine Hemoglobin 2+ H Urine Glucose 1+ H Urine Total Protein 2+ H Lab Scanned Report REFERENCE LAB Medications Medication Current Medications Naloxone HCl (Narcan) 1 mg Q2M PRN IV LETHARGY Last administered on 11/03/18at 07:19; Admin Dose 1 MG; Start 11/03/18 at 07:00 IV Flush (NS 3 ml) 3 ml PER PROTOCOL IV ; Start 11/03/18 at 12:00 Ondansetron HCl (Zofran Inj) 4 mg Q6H PRN IV NAUSEA/VOMITING Last administered on 11/07/18at 17:46; Admin Dose 4 MG; Start 11/03/18 at 12:00 Acetaminophen (Tylenol Tab) 650 mg Q6H PRN PO .PAIN 1-3 OR TEMP Last admi nistered on 11/12/18at 08:45; Admin Dose 650 MG; Start 11/03/18 at 12:00 Acetaminophen/ Hydrocodone Bitart ([place] (5/325)) 1 tab Q6H PRN PO .MOD PAIN 4- 6 Last administered on 11/13/18at 10:04; Admin Dose 1 TAB; Start 11/03/18 at 12:00 Docusate Sodium (Colace) 100 mg Q12H PRN PO .CONSTIPATION; Start 11/03/18 at 12:00 Magnesium Hydroxide (Milk Of Mag) 30 ml DAILY PRN PO .CONSTIPATION Last administered on 11/07/18 17:47; Admin Dose 30 ML; Start 11/03/18 at 12:00 Albuterol/ Ipratropium (Duoneb) 3 ml Q4H RESP THERAPY PRN HHN SHORTNESS OF BREATH Last administered on 11/06/18 05:07; Admin Dose 3 ML; Start 11/03/18 at 12:00 Hydralazine HCl (Apresoline) 10 mg Q6H PRN IV ELEVATED BLOOD PRESSURE; Start 11/03/18 at 12:00 Nitroglycerin (Nitroglycerin (Sl Tab) 0.4 Mg) 1 tab Q5M PRN SL ANGINA; Start 11/03/18 at 12:00 Aspirin (Ecotrin) 325 mg DAILY PO Last administered on 11/14/18 09:36; Admin Dose 325 MG; Start 11/04/18 at 09:00 Ascorbic Acid (Vitamin C) 500 mg DAILY GTB Last administered on 11/14/18 09:36; Admin Dose 500 MG; Start 11/04/18 at 09:00 Atorvastatin Calcium (Lipitor) 80 mg QHS GTB Last administered on 11/13/18 21:56; Admin Dose 80 MG; Start 11/03/18 at 21:00 Bisacodyl (Dulcolax Supp) 10 mg DAILY PRN [place] CONSTIPATION; Start 11/03/18 at 12:00 Chlorhexidine Gluconate (Peridex) 15 ml Q12H MM Last administered on 11/14/18 01:15; Admin Dose 15 ML; Start 11/03/18 at 12:00 Clonidine (Catapres) 0.2 mg Q8H PRN GTB SBP ABOVE 160; Start 11/03/18 at 12:00 Valproate Sodium (Depakene Liquid Cup) 500 mg BID GTB Last administered on 11/14/18 09:36; Admin Dose 500 MG; Start 11/03/18 at 21:00 Zinc Sulfate (Zinc Sulfate) 220 mg DAILY GTB Last administered on 11/14/18 09:36; Admin Dose 220 MG; Start 11/04/18 at 09:00 Lactobacillus Acidophilus/ Rhamnosus (Culturelle) 1 cap DAILY PO Last administered on 11/14/18 09:36; Admin Dose 1 CAP; Start 11/04/18 at 09:00 Multivitamins/ Minerals (Theragran-M) 1 tab DAILY PO Last administered on 11/14/18 09:36; Admin Dose 1 TAB; Start 11/04/18 at 09:00 Metoprolol Tartrate (Lopressor) 25 mg BID PO Last administered on 11/14/18 09:37; Admin Dose 25 MG; Start 11/03/18 at 21:00 Gabapentin (Neurontin) 600 mg BID GTB Last administered on 11/14/18 09:36; Admin Dose 600 MG; Start 11/04/18 at 12:00 Risperidone (Risperdal) 2 mg DAILY GTB Last administered on 11/14/18 09:36; Admin Dose 2 MG; Start 11/04/18 at 14:00 Mupirocin (Bactroban) 1 applic BID TOP Last administered on 11/14/18 09:33; Admin Dose 1 APPLIC; Start 11/05/18 at 12:00 Quetiapine Fumarate (Seroquel) 12.5 mg Q8 PRN GTB AGITATION Last administered on 11/14/18 05:21; Admin Dose 12.5 MG; Start 11/06/18 at 11:00 Diphenhydramine HCl (Benadryl) 25 mg Q6H PRN IV ITCHING Last administered on 11/14/18 05:22; Admin Dose 25 MG; Start 11/06/18 at 18:00 Famotidine (Pepcid) 20 mg BID GTB Last administered on 11/14/18 09:36; Admin Dose 20 MG; Start 11/07/18 at 09:00 Cefepime HCl 50 ml @ 100 mls/hr Q12 IVPB Last administered on 11/14/18 09:33; Admin Dose 100 MLS/HR; Start 11/12/18 at 14:00 WILMAR HARRIS Nov 14, 2018 11:43
--- NOTE | 2018-11-14 12:31 | CONS ---
Assessment/Plan Assessment/Plan Hospital Course (Demo Recall) IMPRESSION: 1. Positive troponin/NSTEMI-now downtrended-Echo EF 50-55 11/03 2. Abnormal electrocardiogram with incomplete right bundle branch block. 3. Tachycardia, mild. 4. Chronic respiratory failure, status post tracheostomy. 5. Dysphagia, status post G-tube. 6. History of subarachnoid hemorrhage. 7. History of ventriculoperitoneal shunt. 8. 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 s/p JAKE 11/10 with no definite findings for source of embolus but spontaneous contrast in LA/SENAIT which is a marker for low flow/stasis and thus increased risk for development of thrombus(seen with low EF/AF, etc). NOrmal neck CTA Recc: -Tele -Continue asa/statin -Continue BB -Continue to trend cardiac enzymes which are downtrended -would continue to monitor for occult arrythmia(AF) -F/U hypercoag w/u -Lovenox now held due to hematuria Consultation Date/Type/Reason Admit Date/Time November 03, 2018 at 10:30 Initial Consult Date 11/04/18 Type of Consult Cardiology Reason for Consultation Nstemi Requesting Provider: BRANDT RAMÍREZ Date/Time of Note DATE: 11/14/18 TIME: 12:29 Exam/Review of Systems Vital Signs Vitals Vital Signs Date Temp Pulse Resp B/P (MAP) Pulse Ox O2 O2 Flow FiO2 Time Delivery Rate 11/14/18 98.0 52 20 95/56 (69) 95 12:00 11/14/18 5.0 28 09:48 11/14/18 Trach 06:00 Collar Intake and Output 11/13/18 11/13/18 11/14/18 1515:00 23:00 07:00 IntakeIntake Total 830 ml 200 ml OutputOutput Total 1100 ml BalanceBalance 830 ml -900 ml Exam Exam Review of Systems: CONSTITUTIONAL: No fevers, chills. PULMONARY: trached CARDIOVASCULAR: No chest pain/palpitations GASTROINTESTINAL: No nausea/vomiting. GENITOURINARY: No hematuria/dysuria. MUSCULOSKELETAL: No myagias/arthalgias. PSYCHIATRIC: The patient denies depression. NEUROLOGIC: encephalopathy Constitutional: alert Psych: no complaints Head: normocephalic Neck: other (trached) Respiratory: diminished breath sounds (at bases/B) Cardiovascular: regular rate and rhythm Gastrointestinal: soft, non-tender Musculoskeletal: muscle weakness (mild generalized) Extremities: edema (none) Labs Result Diagram: 11/14/1830 11/14/18 0530 Results 24hrs Laboratory Tests Test 11/14/18 05:30 11/14/18 06:30 11/14/18 08:44 White Blood Count 10.1 Red Blood Count 4.26 L Hemoglobin 13.4 L Hematocrit 40.1 L Mean Corpuscular Volume 94.1 Mean Corpuscular Hemoglobin 31.5 Mean Corpuscular 33.4 Hemoglobin Concent Red Cell Distribution Width 12.9 Platelet Count 249 Mean Platelet Volume 9.3 Immature Granulocytes % 1.000 H Neutrophils % 65.4 Lymphocytes % 20.6 Monocytes % 7.6 Eosinophils % 4.6 Basophils % 0.8 Nucleated Red Blood Cells % 0.0 Immature Granulocytes # 0.100 H Neutrophils # 6.6 Lymphocytes # 2.1 Monocytes # 0.8 Eosinophils # 0.5 Basophils # 0.1 Nucleated Red Blood Cells # 0.0 Sodium Level 142 Potassium Level 3.8 Chloride Level 102 Carbon Dioxide Level 29 Anion Gap 11 Blood Urea Nitrogen 10 Creatinine 0.65 Est Glomerular Filtrat > 60 Rate mL/min Glucose Level 83 Calcium Level 9.2 Urine Color RED Urine Clarity SLIGHTLY CLOUDY A Urine pH 7.0 Urine Specific [place] 1.011 Urine Ketones NEGATIVE Urine Nitrite POSITIVE A Urine Bilirubin NEGATIVE Urine Urobilinogen NEGATIVE Urine Leukocyte Esterase NEGATIVE Urine Microscopic RBC > 182 H Urine Microscopic WBC 10 H Urine Mucus FEW A Urine Hemoglobin 2+ H Urine Glucose 1+ H Urine Total Protein 2+ H Lab Scanned Report REFERENCE LAB Medications Medications Current Medications Naloxone HCl (Narcan) 1 mg Q2M PRN IV LETHARGY Last administered on 11/03/18at 07:19; Admin Dose 1 MG; Start 11/03/18 at 07:00 IV Flush (NS 3 ml) 3 ml PER PROTOCOL IV ; Start 11/03/18 at 12:00 Ondansetron HCl (Zofran Inj) 4 mg Q6H PRN IV NAUSEA/VOMITING Last administered on 11/07/18at 17:46; Admin Dose 4 MG; Start 11/03/18 at 12:00 Acetaminophen (Tylenol Tab) 650 mg Q6H PRN PO .PAIN 1-3 OR TEMP Last administered on 6/1/19at 08:45; Admin Dose 650 MG; Start 11/03/18 at 12:00 Acetaminophen/ Hydrocodone Bitart ([place] (5/325)) 1 tab Q6H PRN PO .MOD PAIN 4- 6 Last administered on 11/13/18 10:04; Admin Dose 1 TAB; Start 11/03/18 at 12:00 Docusate Sodium (Colace) 100 mg Q12H PRN PO .CONSTIPATION; Start 11/03/18 at 12:00 Magnesium Hydroxide (Milk Of Mag) 30 ml DAILY PRN PO .CONSTIPATION Last administered on 11/07/18 17:47; Admin Dose 30 ML; Start 11/03/18 at 12:00 Albuterol/ Ipratropium (Duoneb) 3 ml Q4H RESP THERAPY PRN HHN SHORTNESS OF BREATH Last administered on 11/06/18 05:07; Admin Dose 3 ML; Start 11/03/18 at 12:00 Hydralazine HCl (Apresoline) 10 mg Q6H PRN IV ELEVATED BLOOD PRESSURE; Start 11/03/18 at 12:00 Nitroglycerin (Nitroglycerin (Sl Tab) 0.4 Mg) 1 tab Q5M PRN SL ANGINA; Start 11/03/18 at 12:00 Aspirin (Ecotrin) 325 mg DAILY PO Last administered on 11/14/18 09:36; Admin Dose 325 MG; Start 11/04/18 at 09:00 Ascorbic Acid (Vitamin C) 500 mg DAILY GTB Last administered on 11/14/18 09:36; Admin Dose 500 MG; Start 11/04/18 at 09:00 Atorvastatin Calcium (Lipitor) 80 mg QHS GTB Last administered on 11/13/18 21:56; Admin Dose 80 MG; Start 11/03/18 at 21:00 Bisacodyl (Dulcolax Supp) 10 mg DAILY PRN [place] CONSTIPATION; Start 11/03/18 at 12:00 Chlorhexidine Gluconate (Peridex) 15 ml Q12H MM Last administered on 11/14/18 12:10; Admin Dose 15 ML; Start 11/03/18 at 12:00 Clonidine (Catapres) 0.2 mg Q8H PRN GTB SBP ABOVE 160; Start 11/03/18 at 12:00 Valproate Sodium (Depakene Liquid Cup) 500 mg BID GTB Last administered on 11/14/18:36; Admin Dose 500 MG; Start 11/03/18 at 21:00 Zinc Sulfate (Zinc Sulfate) 220 mg DAILY GTB Last administered on 11/14/18:36; Admin Dose 220 MG; Start 11/04/18 at 09:00 Lactobacillus Acidophilus/ Rhamnosus (Culturelle) 1 cap DAILY PO Last administered on 11/14/18:36; Admin Dose 1 CAP; Start 11/04/18 at 09:00 Multivitamins/ Minerals (Theragran-M) 1 tab DAILY PO Last administered on 11/14/18:36; Admin Dose 1 TAB; Start 11/04/18 at 09:00 Metoprolol Tartrate (Lopressor) 25 mg BID PO Last administered on 11/14/18 09:37; Admin Dose 25 MG; Start 11/03/18 at 21:00 Gabapentin (Neurontin) 600 mg BID GTB Last administered on 11/14/18; Admin Dose 600 MG; Start 11/04/18 at 12:00 Risperidone (Risperdal) 2 mg DAILY GTB Last administered on 11/14/18:36; Admin Dose 2 MG; Start 11/04/18 at 14:00 Mupirocin (Bactroban) 1 applic BID TOP Last administered on 11/14/18:33; Admin Dose 1 APPLIC; Start 11/05/18 at 12:00 Quetiapine Fumarate (Seroquel) 12.5 mg Q8 PRN GTB AGITATION Last administered on 11/14/18 05:21; Admin Dose 12.5 MG; Start 11/06/18 at 11:00 Diphenhydramine HCl (Benadryl) 25 mg Q6H PRN IV ITCHING Last administered on 11/14/18 05:22; Admin Dose 25 MG; Start 11/06/18 at 18:00 Famotidine (Pepcid) 20 mg BID GTB Last administered on 11/14/18:36; Admin Dose 20 MG; Start 11/07/18 at 09:00 Cefepime HCl 50 ml @ 100 mls/hr Q12 IVPB Last administered on 11/14/18 09:33; Admin Dose 100 MLS/HR; Start 11/12/18 at 14:00 NORMAN KESSLER Nov 14, 2018 12:31
--- NOTE | 2018-11-14 13:33 | PN ---
DATE: 11/14/2018 SUBJECTIVE: The patient is stable. No events noted. OBJECTIVE: VITAL SIGNS: Blood pressure is 110/54, respirations 22, pulse 79, temperature is 98.5. HEENT: Head is normocephalic. NECK: Supple. HEART: Regular rate. LUNGS: Show diminished breath sounds at the base. ABDOMEN: Soft, nontender to palpation without rebound or guarding. EXTREMITIES: Negative for clubbing, cyanosis. No edema. DERMATOLOGIC: No rashes. MUSCULOSKELETAL: No joint effusion. NEUROLOGIC: No change in exam. MEDICATIONS: Have been reviewed. LABORATORY DATA: Have been reviewed. ASSESSMENT AND PLAN: 1. Nonoliguric acute kidney injury with unknown baseline creatinine. Etiology is secondary to hemod ynamics. Renal function is improved. 2. Hypernatremia. Continue free water flushes. 3. Anemia. Monitor hemoglobin and hematocrit levels. 4. Mineral bone disorder. Monitor calcium and phosphorus levels. 5. Ventilator-dependent respiratory failure. Vent settings have been reviewed. Continue to monitor . 6. Acute cerebrovascular accident, embolic in nature. Continue medical management. Follow up with neurology. 7. Hematuria, improved. 8. Non-ST elevation myocardial infarction. Continue medical management. 9. Hypertension. Continue current blood pressure regimen. 10. Encephalopathy, toxic metabolic, secondary to cerebrovascular accident. Continue to monitor. We will follow the patient as needed. Dictated By: RENEE KEENAN DO NR/NTS Conf#: [id number] DID#: [id number] CC: EDWIN HOGAN MD; BRANDT RAMÍREZ;*EndCC*
[2018-11-14] MEDS: HYDROCODONE/APAP (5/325) TAB PO PRN (14:12)
--- NOTE | 2018-11-14 14:40 | CONS ---
Assessment/Plan Assessment/Plan Assessment/Plan (Recall) 43 yo M with multiple comorbidities who presents for evaluation of ams in the context of respiratory sx. 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 for which neurology is consulted. The clinical picture raises concern for a cardioembolic process. Vasculitis is less likely. Echo (TTE) is unrevealing. JAKE was without evidence of intracardiac thrombus, though notable for spontaneous contrast and possible slow flow in the [place] CTA H/N was only notable for stable L MARNI aneurysm coil LDL 16, ESR 57, RPR neg, HIV neg Protein C and S low P: Cont ASA for secondary stroke prevention; LDL is at goal BP and other medical management per primary [place] as able Limit sedating medications where possible PT/OT/ST when able Will follow clinically Consultation Date/Type/Reason Admit Date/Time November 03, 2018 at 10:30 Type of Consult Neurology Reason for Consultation Strokes Requesting Provider: BRANDT RAMÍREZ Date/Time of Note DATE: 11/14/18 TIME: 14:40 24 HR Interval Summary Free Text/Dictation Continues acute care. Exam/Review of Systems Exam Vitals Vital Signs Date Temp Pulse Resp B/P (MAP) Pulse Ox O2 O2 Flow FiO2 Time Delivery Rate 11/14/18 98.1 71 19 130/78 95 14:11 (95) 11/14/18 5.0 28 09:48 11/14/18 Trach 06:00 Collar Intake and Output 11/13/18 11/13/18 11/14/18 1515:00 23:00 07:00 IntakeIntake Total 830 ml 200 ml OutputOutput Total 1100 ml BalanceBalance 830 ml -900 ml Exam PE: Gen Appearance: No Apparent Distress; On 2-pt restraints HEENT: Trached Cardiovascular: Regular rate Abdomen: Soft Extremities: Dry NE: The patient was awake, alert, and mouthing words. Unable to understand d/t trach. The pt was able to follow simple axial and appendicular commands. Cranial nerve examination was limited by mental status. Pupils were equal and reactive to light. There was no afferent pupillary defect. Funduscopic examination was limited. Face was grossly symmetric, w/ present corneal and cough reflexes. Tone was normal. Muscle bulk was normal. I did not see fasciculations. The pat ient had spontaneous movement of all extremities. Coordination and gait testing was limited by mental status. Arm and leg reflexes were within normal limits and symmetric. Carlson's sign was absent. Plantar responses were flexor. Results Result Diagram: 11/14/18 0530 11/14/18 0530 Results 24hrs Laboratory Tests Test 11/14/18 05:30 11/14/18 06:30 11/14/18 08:44 White Blood Count 10.1 Red Blood Count 4.26 L Hemoglobin 13.4 L Hematocrit 40.1 L Mean Corpuscular Volume 94.1 Mean Corpuscular Hemoglobin 31.5 Mean Corpuscular 33.4 Hemoglobin Concent Red Cell Distribution Width 12.9 Platelet Count 249 Mean Platelet Volume 9.3 Immature Granulocytes % 1.000 H Neutrophils % 65.4 Lymphocytes % 20.6 Monocytes % 7.6 Eosinophils % 4.6 Basophils % 0.8 Nucleated Red Blood Cells % 0.0 Immature Granulocytes # 0.100 H Neutrophils # 6.6 Lymphocytes # 2.1 Monocytes # 0.8 Eosinophils # 0.5 Basophils # 0.1 Nucleated Red Blood Cells # 0.0 Sodium Level 142 Potassium Level 3.8 Chloride Level 102 Carbon Dioxide Level 29 Anion Gap 11 Blood Urea Nitrogen 10 Creatinine 0.65 Est Glomerular Filtrat > 60 Rate mL/min Glucose Level 83 Calcium Level 9.2 Urine Color RED Urine Clarity SLIGHTLY CLOUDY A Urine pH 7.0 Urine Specific [place] 1.011 Urine Ketones NEGATIVE Urine Nitrite POSITIVE A Urine Bilirubin NEGATIVE Urine Urobilinogen NEGATIVE Urine Leukocyte Esterase NEGATIVE Urine Microscopic RBC > 182 H Urine Microscopic WBC 10 H Urine Mucus FEW A Urine Hemoglobin 2+ H Urine Glucose 1+ H Urine Total Protein 2+ H Lab Scanned Report REFERENCE LAB Medications Medication Current Medications Naloxone HCl (Narcan) 1 mg Q2M PRN IV LETHARGY Last administered on 11/03/18at 07:19; Admin Dose 1 MG; Start 11/03/18 at 07:00 IV Flush (NS 3 ml) 3 ml PER PROTOCOL IV ; Start 11/03/18 at 12:00 Ondansetron HCl (Zofran Inj) 4 mg Q6H PRN IV NAUSEA/VOMITING Last administered on 11/07/18at 17:46; Admin Dose 4 MG; Start 11/03/18 at 12:00 Acetaminophen (Tylenol Tab) 650 mg Q6H PRN PO .PAIN 1-3 OR TEMP Last administered on 11/12/18at 08:45; Admin Dose 650 MG; Start 11/03/18 at 12:00 Acetaminophen/ Hydrocodone Bitart ([place] (5/325)) 1 tab Q6H PRN PO .MOD PAIN 4- 6 Last administered on 11/14/18 14:12; Admin Dose 1 TAB; Start 11/03/18 at 12:00 Docusate Sodium (Colace) 100 mg Q12H PRN PO .CONSTIPATION; Start 11/03/18 at 12:00 Magnesium Hydroxide (Milk Of Mag) 30 ml DAILY PRN PO .CONSTIPATION Last administered on 11/07/18at 17:47; Admin Dose 30 ML; Start 11/03/18 at 12:00 Albuterol/ Ipratropium (Duoneb) 3 ml Q4H RESP THERAPY PRN HHN SHORTNESS OF BREATH Last administered on 11/06/18at 05:07; Admin Dose 3 ML; Start 11/03/18 at 12:00 Hydralazine HCl (Apresoline) 10 mg Q6H PRN IV ELEVATED BLOOD PRESSURE; Start 11/03/18 at 12:00 Nitroglycerin (Nitroglycerin (Sl Tab) 0.4 Mg) 1 tab Q5M PRN SL ANGINA; Start 11/03/18 at 12:00 Aspirin (Ecotrin) 325 mg DAILY PO Last administered on 11/14/18 09:36; Admin Dose 325 MG; Start 11/04/18 at 09:00 Ascorbic Acid (Vitamin C) 500 mg DAILY GTB Last administered on 11/14/18 09:36; Admin Dose 500 MG; Start 11/04/18 at 09:00 Atorvastatin Calcium (Lipitor) 80 mg QHS GTB Last administered on 11/13/18at 21:56; Admin Dose 80 MG; Start 11/03/18 at 21:00 Bisacodyl (Dulcolax Supp) 10 mg DAILY PRN [place] CONSTIPATION; Start 11/03/18 at 12:00 Chlorhexidine Gluconate (Peridex) 15 ml Q12H MM Last administered on 11/14/18 12:10; Admin Dose 15 ML; Start 11/03/18 at 12:00 Clonidine (Catapres) 0.2 mg Q8H PRN GTB SBP ABOVE 160; Start 11/03/18 at 12:00 Valproate Sodium (Depakene Liquid Cup) 500 mg BID GTB Last administered on 11/14/18:36; Admin Dose 500 MG; Start 11/03/18 at 21:00 Zinc Sulfate (Zinc Sulfate) 220 mg DAILY GTB Last administered on 11/14/18:36; Admin Dose 220 MG; Start 11/04/18 at 09:00 Lactobacillus Acidophilus/ Rhamnosus (Culturelle) 1 cap DAILY PO Last admi nistered on 11/14/18:36; Admin Dose 1 CAP; Start 11/04/18 at 09:00 Multivitamins/ Minerals (Theragran-M) 1 tab DAILY PO Last administered on 11/14/18:36; Admin Dose 1 TAB; Start 11/04/18 at 09:00 Metoprolol Tartrate (Lopressor) 25 mg BID PO Last administered on 11/14/18 09:37; Admin Dose 25 MG; Start 11/03/18 at 21:00 Gabapentin (Neurontin) 600 mg BID GTB Last administered on 11/14/18; Admin Dose 600 MG; Start 11/04/18 at 12:00 Risperidone (Risperdal) 2 mg DAILY GTB Last administered on 11/14/18:36; Admin Dose 2 MG; Start 11/04/18 at 14:00 Mupirocin (Bactroban) 1 applic BID TOP Last administered on 11/14/18:33; Admin Dose 1 APPLIC; Start 11/05/18 at 12:00 Quetiapine Fumarate (Seroquel) 12.5 mg Q8 PRN GTB AGITATION Last administered on 11/14/18 05:21; Admin Dose 12.5 MG; Start 11/06/18 at 11:00 Diphenhydramine HCl (Benadryl) 25 mg Q6H PRN IV ITCHING Last administered on 11/14/18 05:22; Admin Dose 25 MG; Start 11/06/18 at 18:00 Famotidine (Pepcid) 20 mg BID GTB Last administered on 11/14/18:36; Admin Dose 20 MG; Start 11/07/18 at 09:00 Cefepime HCl 50 ml @ 100 mls/hr Q12 IVPB Last administered on 11/14/18 09:33; Admin Dose 100 MLS/HR; Start 11/12/18 at 14:00 MOY BENJAMIN NP Nov 14, 2018 14:40
--- NOTE | 2018-11-14 14:48 | CONS ---
Assessment/Plan Assessment/Plan Hospital Course (Demo Recall) No acute changes. Hematuria persists. No fevers. pt is awake and looks comfortable Microbiology: Urine culture neg, sputum cx + PSA Antimicrobials: Cefepime. Indwelling's: Trach PEG Higgins Physical examination: This is a chronically ill-appearing middle-aged man who is noncommunicative the patient is in no distress. Head atraumatic normocephalic. Neck is supple. Tracheostomy present. Chest rise symmetrical, breath sounds diminished to bases. Heart: S1-S2. Abdomen soft bowel sounds present. Patient has Higgins catheter with bloody urine. Extremities without cyanosis. Assessment: 1. Hematuria 2. Status post pneumonia 3. Chronic respiratory failure and dysphagia 4. Status post coag negative staph bacteremia on admission consistent with contaminant 5. Chronic encephalopathy, history of subarachnoid hemorrhage Plan: Patient is clinically unchanged, more awake, hematuria persists, ?urology evaluation Consultation Date/Type/Reason Admit Date/Time November 03, 2018 at 10:30 Initial Consult Date Type of Consult id Requesting Provider: BRANDT RAMÍREZ Date/Time of Note DATE: 11/14/18 TIME: 14:46 Exam/Review of Systems Exam Vitals Vital Signs Date Temp Pulse Resp B/P (MAP) Pulse Ox O2 O2 Flow FiO2 Time Delivery Rate 11/14/18 98.1 71 19 130/78 95 14:11 (95) 11/14/18 5.0 28 09:48 11/14/18 Trach 06:00 Collar Intake and Output 11/13/18 11/13/18 11/14/18 1515:00 23:00 07:00 IntakeIntake Total 830 ml 200 ml OutputOutput Total 1100 ml BalanceBalance 830 ml -900 ml Results Result Diagram: 11/14/18 0530 11/14/18 0530 Results 24hrs Laboratory Tests Test 11/14/18 05:30 11/14/18 06:30 11/14/18 08:44 White Blood Count 10.1 Red Blood Count 4.26 L Hemoglobin 13.4 L Hematocrit 40.1 L Mean Corpuscular Volume 94.1 Mean Corpuscular Hemoglobin 31.5 Mean Corpuscular 33.4 Hemoglobin Concent Red Cell Distribution Width 12.9 Platelet Count 249 Mean Platelet Volume 9.3 Immature Granulocytes % 1.000 H Neutrophils % 65.4 Lymphocytes % 20.6 Monocytes % 7.6 Eosinophils % 4.6 Basophils % 0.8 Nucleated Red Blood Cells % 0.0 Immature Granulocytes # 0.100 H Neutrophils # 6.6 Lymphocytes # 2.1 Monocytes # 0.8 Eosinophils # 0.5 Basophils # 0.1 Nucleated Red Blood Cells # 0.0 Sodium Level 142 Potassium Level 3.8 Chloride Level 102 Carbon Dioxide Level 29 Anion Gap 11 Blood Urea Nitrogen 10 Creatinine 0.65 Est Glomerular Filtrat > 60 Rate mL/min Glucose Level 83 Calcium Level 9.2 Urine Color RED Urine Clarity SLIGHTLY CLOUDY A Urine pH 7.0 Urine Specific [place] 1.011 Urine Ketones NEGATIVE Urine Nitrite POSITIVE A Urine Bilirubin NEGATIVE Urine Urobilinogen NEGATIVE Urine Leukocyte Esterase NEGATIVE Urine Microscopic RBC > 182 H Urine Microscopic WBC 10 H Urine Mucus FEW A Urine Hemoglobin 2+ H Urine Glucose 1+ H Urine Total Protein 2+ H Lab Scanned Report REFERENCE LAB Medications Medication Current Medications Naloxone HCl (Narcan) 1 mg Q2M PRN IV LETHARGY Last administered on 11/03/18 07:19; Admin Dose 1 MG; Start 11/03/18 at 07:00 IV Flush (NS 3 ml) 3 ml PER PROTOCOL IV ; Start 11/03/18 at 12:00 Ondansetron HCl (Zofran Inj) 4 mg Q6H PRN IV NAUSEA/VOMITING Last administered on 11/07/18at 17:46; Admin Dose 4 MG; Start 11/03/18 at 12:00 Acetaminophen (Tylenol Tab) 650 mg Q6H PRN PO .PAIN 1-3 OR TEMP Last administered on 11/12/18at 08:45; Admin Dose 650 MG; Start 11/03/18 at 12:00 Acetaminophen/ Hydrocodone Bitart ([place] (5/325)) 1 tab Q6H PRN PO .MOD PAIN 4- 6 Last administered on 11/14/18at 14:12; Admin Dose 1 TAB; Start 11/03/18 at 12:00 Docusate Sodium (Colace) 100 mg Q12H PRN PO .CONSTIPATION; Start 11/03/18 at 12:00 Magnesium Hydroxide (Milk Of Mag) 30 ml DAILY PRN PO .CONSTIPATION Last administered on 11/07/18at 17:47; Admin Dose 30 ML; Start 11/03/18 at 12:00 Albuterol/ Ipratropium (Duoneb) 3 ml Q4H RESP THERAPY PRN HHN SHORTNESS OF BREATH Last administered on 11/06/18 05:07; Admin Dose 3 ML; Start 11/03/18 at 12:00 Hydralazine HCl (Apresoline) 10 mg Q6H PRN IV ELEVATED BLOOD PRESSURE; Start 11/03/18 at 12:00 Nitroglycerin (Nitroglycerin (Sl Tab) 0.4 Mg) 1 tab Q5M PRN SL ANGINA; Start 11/03/18 at 12:00 Aspirin (Ecotrin) 325 mg DAILY PO Last administered on 11/14/18 09:36; Admin Dose 325 MG; Start 11/04/18 at 09:00 Ascorbic Acid (Vitamin C) 500 mg DAILY GTB Last administered on 11/14/18:36; Admin Dose 500 MG; Start 11/04/18 at 09:00 Atorvastatin Calcium (Lipitor) 80 mg QHS GTB Last administered on 11/13/18 21:56; Admin Dose 80 MG; Start 11/03/18 at 21:00 Bisacodyl (Dulcolax Supp) 10 mg DAILY PRN [place] CONSTIPATION; Start 11/03/18 at 12:00 Chlorhexidine Gluconate (Peridex) 15 ml Q12H MM Last administered on 11/14/18 12:10; Admin Dose 15 ML; Start 11/03/18 at 12:00 Clonidine (Catapres) 0.2 mg Q8H PRN GTB SBP ABOVE 160; Start 11/03/18 at 12:00 Valproate Sodium (Depakene Liquid Cup) 500 mg BID GTB Last administered on 11/14/18 09:36; Admin Dose 500 MG; Start 11/03/18 at 21:00 Zinc Sulfate (Zinc Sulfate) 220 mg DAILY GTB Last administered on 11/14/18 09:36; Admin Dose 220 MG; Start 11/04/18 at 09:00 Lactobacillus Acidophilus/ Rhamnosus (Culturelle) 1 cap DAILY PO Last adminis tered on 11/14/18 09:36; Admin Dose 1 CAP; Start 11/04/18 at 09:00 Multivitamins/ Minerals (Theragran-M) 1 tab DAILY PO Last administered on 11/14/18 09:36; Admin Dose 1 TAB; Start 11/04/18 at 09:00 Metoprolol Tartrate (Lopressor) 25 mg BID PO Last administered on 11/14/18 09:37; Admin Dose 25 MG; Start 11/03/18 at 21:00 Gabapentin (Neurontin) 600 mg BID GTB Last administered on 11/14/18 09:36; Admin Dose 600 MG; Start 11/04/18 at 12:00 Risperidone (Risperdal) 2 mg DAILY GTB Last administered on 11/14/18 09:36; Admin Dose 2 MG; Start 11/04/18 at 14:00 Mupirocin (Bactroban) 1 applic BID TOP Last administered on 11/14/18 09:33; Admin Dose 1 APPLIC; Start 11/05/18 at 12:00 Quetiapine Fumarate (Seroquel) 12.5 mg Q8 PRN GTB AGITATION Last administered on 11/14/18 05:21; Admin Dose 12.5 MG; Start 11/06/18 at 11:00 Diphenhydramine HCl (Benadryl) 25 mg Q6H PRN IV ITCHING Last administered on 11/14/18 05:22; Admin Dose 25 MG; Start 11/06/18 at 18:00 Famotidine (Pepcid) 20 mg BID GTB Last administered on 11/14/18 09:36; Admin Dose 20 MG; Start 11/07/18 at 09:00 Cefepime HCl 50 ml @ 100 mls/hr Q12 IVPB Last administered on 11/14/18 09:33; Admin Dose 100 MLS/HR; Start 11/12/18 at 14:00 AIMEE BRADSHAW NP Nov 14, 2018 14:47
[2018-11-14] MEDS: ATORVASTATIN 40 MG TAB GTB SCH (20:53)
--- NOTE | 2018-11-14 21:13 | CONS ---
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 Patient was evaluated and was found to have had an episode of ap marysol and altered mental status, he also was found to have elevated troponin and renal insufficiency. He is known to have a history of hypertension and high cholesterol. He has a tracheostomy and G-tube and an indwelling Higgins catheter. He was noted to have gross hematuria and that has not cleared even though the patient was treated with antibiotic and is well hydrated. Therefore a urological con sultation was requested Presently the patient is not much communicative. I did review his medical r ecord. Because of the persistent hematuria I did remove the old Higgins catheter and inserted a new 20 Egyptian 30 cc balloon three-way Higgins catheter. I did hand irrigate the catheter and there were no blood clots inside the bladder. I started him on continuous bladder irrigation with normal saline. We will keep the irrigation and to gradually slow it down then stop it once urine is clear. 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 Patient was evaluated and was found to have had an episode of apnea and altered mental status, he also was found to have elevated troponin and renal insufficiency. He is known to have a history of hypertension and high cholesterol. He has a tracheostomy and G-tube and an indwelling Higgins catheter. He was noted to have gross hematuria and that has not cleared even though the patient was treated with antibiotic and is well hydrated. Therefore a urological consultation was requested Presently the patient is not much communicative. I did review his medical record. , Subjective hx not possible: pt non-verbal Respiratory: other (Tracheostomy) Gastrointestinal: other (G-tube) Genitourinary: hematuria Past Medical History Medical History: GERD, high cholesterol, hypertension, renal disease Home Meds Reported Medications Zinc Sulfate* (Zinc Sulfate*) 220 Mg Tablet, 220 MG GTB DAILY, TAB STOP TAKING 11/21/18 11/03/18 Ascorbic Acid* (Vitamin C*) 500 Mg Capsule.sa, 500 MG GTB DAILY, CAP 11/03/18 Valproic Acid* (Valproic Acid* Liq) 250 Mg/5 Ml Syrup, 10 ML GTB BID, ML 11/03/18 Cran/Vitc/Mannose/Inulin/Brom (Uti-Stat Liquid) 3,875 Mg/30 Ml Liquid, 30 ML GTB DAILY 11/03/18 Acetaminophen* (Acetaminophen*) 500 MG Extra Strength Tablet, 1000 MG GTB Q4H PRN for PAIN -11/21, TAB 11/03/18 Acetaminophen* (Tylenol*) 325 Mg Tablet, 650 MG GTB BID PRN for PAIN AND OR ELEVATED TEMP, TAB 11/03/18 Acetaminophen* (Tylenol*) 325 Mg Tablet, 650 MG GTB Q4H PRN for MILD PAIN LEVEL 1-3, TAB AND FEVER 101F,STOP DATE 12/21/18 11/03/18 Acetaminophen* (Tylenol*) 325 Mg Tablet, 650 MG GTB NEEDED PRN for TRACH TUBE CHANGE, TAB 11/03/18 Risperidone* (Risperdal*) 1 Mg Tablet, 2 MG GTB DAILY, TAB STOP DATE 11/05/18 11/03/18 Amino Acids/Protein Hydrolys (PRO-STAT LIQUID) 30 Ml Liquid.pkt, 30 ML GTB BID 11/03/18 Hydrocodone/Acetaminophen ([place] 5-325 Tablet) 1 Each Tablet, 1 EACH GTB Q6H PRN for PAIN -02/21, TAB 11/03/18 Multivitamin with Minerals (Multivitamins with Minerals) 1 Each Tablet, 1 EACH GTB DAILY, TAB 11/03/18 Magnesium Hydroxide* (Milk Of Magnesia*) 400 Mg/5 Ml Oral.susp, 30 ML GTB NEEDED, ML 11/03/18 Heparin Sodium,Porcine/Pf (HEPARIN SOD 5,000 UNIT/ 0.5 ML) 5,000 Unit/0.5 Ml Vial, 5000 UNIT IJ Q12H, VIAL 11/03/18 Gabapentin* (Gabapentin*) 300 Mg Capsule, 600 MG GTB BID, #180 CAP 11/03/18 Mineral Oil* (Fleet* Mineral Oil Enema) Unknown Strength Oil, 1 APPLIC NC NEEDED PRN for CONSTIPATION, ENEMA 11/03/18 Bisacodyl (Dulcolax) 10 Mg Supp.rect, 10 MG RC PRN, SUPP.RECT 11/03/18 Docusate Sodium* (Colace*) 100 Mg Capsule, 200 MG GTB QHS, #60 CAP 11/03/18 Clonidine Hcl* (Clonidine Hcl*) 0.1 Mg Tab, 0.2 MG GTB Q8H PRN for HTN, TAB HOLD FOR SBPBELOW 110 OR HR BELOW 60 11/03/18 Chlorhexidine Gluconate (Periogard) 473 Ml Mouthwash, 15 ML MM Q12H, BOTTLE 11/03/18 Atorvastatin* (Atorvastatin*) 40 Mg Tablet, 80 MG GTB QHS, #30 TAB 11/03/18 Albuterol Sulfate* (Albuterol Sulfate* Neb) 0.083%-3 Ml Neb, 2.5 MG NEB Q6H PRN for WHEEZING AND SOB, #30 VIAL AND NEEDED Q3H 11/03/18 Lactobacillus Acidophilus/Pect (Acidophilus-Pectin Capsule) 1 Each Capsule, 1 EACH GTB DAILY, CAP 11/03/18 Medications Current Medications Naloxone HCl (Narcan) 1 mg Q2M PRN IV LETHARGY Last administered on 11/03/18at 07:19; Admin Dose 1 MG; Start 11/03/18 at 07:00 IV Flush (NS 3 ml) 3 ml PER PROTOCOL IV ; Start 11/03/18 at 12:00 Ondansetron HCl (Zofran Inj) 4 mg Q6H PRN IV NAUSEA/VOMITING Last administered on 11/07/18at 17:46; Admin Dose 4 MG; Start 11/03/18 at 12:00 Acetaminophen (Tylenol Tab) 650 mg Q6H PRN PO .PAIN 1-3 OR TEMP Last administered on 11/12/18at 08:45; Admin Dose 650 MG; Start 11/03/18 at 12:00 Acetaminophen/ Hydrocodone Bitart ([place] (5/325)) 1 tab Q6H PRN PO .MOD PAIN 4- 6 Last administered on 11/14/18 14:12; Admin Dose 1 TAB; Start 11/03/18 at 12:00 Docusate Sodium (Colace) 100 mg Q12H PRN PO .CONSTIPATION; Start 11/03/18 at 12:00 Magnesium Hydroxide (Milk Of Mag) 30 ml DAILY PRN PO .CONSTIPATION Last administered on 11/07/18at 17:47; Admin Dose 30 ML; Start 11/03/18 at 12:00 Albuterol/ Ipratropium (Duoneb) 3 ml Q4H RESP THERAPY PRN HHN SHORTNESS OF BR EATH Last administered on 11/06/18 05:07; Admin Dose 3 ML; Start 11/03/18 at 12:00 Hydralazine HCl (Apresoline) 10 mg Q6H PRN IV ELEVATED BLOOD PRESSURE; Start 11/03/18 at 12:00 Nitroglycerin (Nitroglycerin (Sl Tab) 0.4 Mg) 1 tab Q5M PRN SL ANGINA; Start 11/03/18 at 12:00 Aspirin (Ecotrin) 325 mg DAILY PO Last administered on 11/14/18 09:36; Admin Dose 325 MG; Start 11/04/18 at 09:00 Ascorbic Acid (Vitamin C) 500 mg DAILY GTB Last administered on 11/14/18 09:36; Admin Dose 500 MG; Start 11/04/18 at 09:00 Atorvastatin Calcium (Lipitor) 80 mg QHS GTB Last administered on 11/14/18 20:53; Admin Dose 80 MG; Start 11/03/18 at 21:00 Bisacodyl (Dulcolax Supp) 10 mg DAILY PRN [place] CONSTIPATION; Start 11/03/18 at 12:00 Chlorhexidine Gluconate (Peridex) 15 ml Q12H MM Last administered on 11/14/18 12:10; Admin Dose 15 ML; Start 11/03/18 at 12:00 Clonidine (Catapres) 0.2 mg Q8H PRN GTB SBP ABOVE 160; Start 11/03/18 at 12:00 Valproate Sodium (Depakene Liquid Cup) 500 mg BID GTB Last administered on 11/14/18 20:52; Admin Dose 500 MG; Start 11/03/18 at 21:00 Zinc Sulfate (Zinc Sulfate) 220 mg DAILY GTB Last administered on 11/14/18 09:36; Admin Dose 220 MG; Start 11/04/18 at 09:00 Lactobacillus Acidophilus/ Rhamnosus (Culturelle) 1 cap DAILY PO Last administered on 11/14/18 09:36; Admin Dose 1 CAP; Start 11/04/18 at 09:00 Multivitamins/ Minerals (Theragran-M) 1 tab DAILY PO Last administered on 11/14/18 09:36; Admin Dose 1 TAB; Start 11/04/18 at 09:00 Metoprolol Tartrate (Lopressor) 25 mg BID PO Last administered on 11/14/18 09:37; Admin Dose 25 MG; Start 11/03/18 at 21:00 Gabapentin (Neurontin) 600 mg BID GTB Last administered on 11/14/18 20:53; Admin Dose 600 MG; Start 11/04/18 at 12:00 Risperidone (Risperdal) 2 mg DAILY GTB Last administered on 11/14/18 09:36; Admin Dose 2 MG; Start 11/04/18 at 14:00 Mupirocin (Bactroban) 1 applic BID TOP Last administered on 11/14/18 20:54; Admin Dose 1 APPLIC; Start 11/05/18 at 12:00 Quetiapine Fumarate (Seroquel) 12.5 mg Q8 PRN GTB AGITATION Last administered on 11/14/18 20:53; Admin Dose 12.5 MG; Start 11/06/18 at 11:00 Diphenhydramine HCl (Benadryl) 25 mg Q6H PRN IV ITCHING Last administered on 11/14/18 20:53; Admin Dose 25 MG; Start 11/06/18 at 18:00 Famotidine (Pepcid) 20 mg BID GTB Last administered on 11/14/18 20:53; Admin Dose 20 MG; Start 11/07/18 at 09:00 Cefepime HCl 50 ml @ 100 mls/hr Q12 IVPB Last administered on 11/14/18 20:51; Admin Dose 100 MLS/HR; Start 11/12/18 at 14:00 Allergies: Coded Allergies: No Known Allergy (Unverified , 11/03/18) Past Surgical History Past Surgical Hx: other (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 I had it removed and inserted a three-way Higgins catheter 20 Egyptian with a 30 cc balloon. I did hand irrigate the catheter. There were no blood clots inside the bladder. I did start him on continuous bladder irrigation. Results Result Diagram: 11/14/18 0530 11/14/18 0530 Results 24hrs Laboratory Tests Test 11/14/18 05:30 11/14/18 06:30 11/14/18 08:44 White Blood Count 10.1 Red Blood Count 4.26 L Hemoglobin 13.4 L Hematocrit 40.1 L Mean Corpuscular Volume 94.1 Mean Corpuscular Hemoglobin 31.5 Mean Corpuscular 33.4 Hemoglobin Concent Red Cell Distribution Width 12.9 Platelet Count 249 Mean Platelet Volume 9.3 Immature Granulocytes % 1.000 H Neutrophils % 65.4 Lymphocytes % 20.6 Monocytes % 7.6 Eosinophils % 4.6 Basophils % 0.8 Nucleated Red Blood Cells % 0.0 Immature Granulocytes # 0.100 H Neutrophils # 6.6 Lymphocytes # 2.1 Monocytes # 0.8 Eosinophils # 0.5 Basophils # 0.1 Nucleated Red Blood Cells # 0.0 Sodium Level 142 Potassium Level 3.8 Chloride Level 102 Carbon Dioxide Level 29 Anion Gap 11 Blood Urea Nitrogen 10 Creatinine 0.65 Est Glomerular Filtrat > 60 Rate mL/min Glucose Level 83 Calcium Level 9.2 Urine Color RED Urine Clarity SLIGHTLY CLOUDY A Urine pH 7.0 Urine Specific [place] 1.011 Urine Ketones NEGATIVE Urine Nitrite POSITIVE A Urine Bilirubin NEGATIVE Urine Urobilinogen NEGATIVE Urine Leukocyte Esterase NEGATIVE Urine Microscopic RBC > 182 H Urine Microscopic WBC 10 H Urine Mucus FEW A Urine Hemoglobin 2+ H Urine Glucose 1+ H Urine Total Protein 2+ H Lab Scanned Report REFERENCE LAB Medications Medication Current Medications Naloxone HCl (Narcan) 1 mg Q2M PRN IV LETHARGY Last administered on 11/03/18 07:19; Admin Dose 1 MG; Start 11/03/18 at 07:00 IV Flush (NS 3 ml) 3 ml PER PROTOCOL IV ; Start 11/03/18 at 12:00 Ondansetron HCl (Zofran Inj) 4 mg Q6H PRN IV NAUSEA/VOMITING Last administered on 11/07/18at 17:46; Admin Dose 4 MG; Start 11/03/18 at 12:00 Acetaminophen (Tylenol Tab) 650 mg Q6H PRN PO .PAIN 1-3 OR TEMP Last administered on 11/12/18at 08:45; Admin Dose 650 MG; Start 11/03/18 at 12:00 Acetaminophen/ Hydrocodone Bitart ([place] (5/325)) 1 tab Q6H PRN PO .MOD PAIN 4- 6 Last administered on 11/14/18at 14:12; Admin Dose 1 TAB; Start 11/03/18 at 12:00 Docusate Sodium (Colace) 100 mg Q12H PRN PO .CONSTIPATION; Start 11/03/18 at 12:00 Magnesium Hydroxide (Milk Of Mag) 30 ml DAILY PRN PO .CONSTIPATION Last administered on 11/07/18at 17:47; Admin Dose 30 ML; Start 11/03/18 at 12:00 Albuterol/ Ipratropium (Duoneb) 3 ml Q4H RESP THERAPY PRN HHN SHORTNESS OF BREATH Last administered on 11/06/18at 05:07; Admin Dose 3 ML; Start 11/03/18 at 12:00 Hydralazine HCl (Apresoline) 10 mg Q6H PRN IV ELEVATED BLOOD PRESSURE; Start 11/03/18 at 12:00 Nitroglycerin (Nitroglycerin (Sl Tab) 0.4 Mg) 1 tab Q5M PRN SL ANGINA; Start 11/03/18 at 12:00 Aspirin (Ecotrin) 325 mg DAILY PO Last administered on 11/14/18at 09:36; Admin Dose 325 MG; Start 11/04/18 at 09:00 Ascorbic Acid (Vitamin C) 500 mg DAILY GTB Last administered on 11/14/18 09:36; Admin Dose 500 MG; Start 11/04/18 at 09:00 Atorvastatin Calcium (Lipitor) 80 mg QHS GTB Last administered on 11/14/18 20:53; Admin Dose 80 MG; Start 11/03/18 at 21:00 Bisacodyl (Dulcolax Supp) 10 mg DAILY PRN NC CONSTIPATION; Start 11/03/18 at 12:00 Chlorhexidine Gluconate (Peridex) 15 ml Q12H MM Last administered on 11/14/18 12:10; Admin Dose 15 ML; Start 11/03/18 at 12:00 Clonidine (Catapres) 0.2 mg Q8H PRN GTB SBP ABOVE 160; Start 11/03/18 at 12:00 Valproate Sodium (Depakene Liquid Cup) 500 mg BID GTB Last administered on 11/14/18 20:52; Admin Dose 500 MG; Start 11/03/18 at 21:00 Zinc Sulfate (Zinc Sulfate) 220 mg DAILY GTB Last administered on 11/14/18 09:36; Admin Dose 220 MG; Start 11/04/18 at 09:00 Lactobacillus Acidophilus/ Rhamnosus (Culturelle) 1 cap DAILY PO Last administered on 11/14/18 09:36; Admin Dose 1 CAP; Start 11/04/18 at 09:00 Multivitamins/ Minerals (Theragran-M) 1 tab DAILY PO Last administered on 11/14/18 09:36; Admin Dose 1 TAB; Start 11/04/18 at 09:00 Metoprolol Tartrate (Lopressor) 25 mg BID PO Last administered on 11/14/18 09:37; Admin Dose 25 MG; Start 11/03/18 at 21:00 Gabapentin (Neurontin) 600 mg BID GTB Last administered on 11/14/18 20:53; Admin Dose 600 MG; Start 11/04/18 at 12:00 Risperidone (Risperdal) 2 mg DAILY GTB Last administered on 11/14/18 09:36; Admin Dose 2 MG; Start 11/04/18 at 14:00 Mupirocin (Bactroban) 1 applic BID TOP Last administered on 11/14/18 20:54; Admin Dose 1 APPLIC; Start 11/05/18 at 12:00 Quetiapine Fumarate (Seroquel) 12.5 mg Q8 PRN GTB AGITATION Last administered on 11/14/18 20:53; Admin Dose 12.5 MG; Start 11/06/18 at 11:00 Diphenhydramine HCl (Benadryl) 25 mg Q6H PRN IV ITCHING Last administered on 11/14/18 20:53; Admin Dose 25 MG; Start 11/06/18 at 18:00 Famotidine (Pepcid) 20 mg BID GTB Last administered on 11/14/18 20:53; Admin Dose 20 MG; Start 11/07/18 at 09:00 Cefepime HCl 50 ml @ 100 mls/hr Q12 IVPB Last administered on 11/14/18 20:51; Admin Dose 100 MLS/HR; Start 11/12/18 at 14:00 EDWIN HOGAN MD Nov 14, 2018 21:13
[2018-11-15] VITALS (16 sets, daily range): BP systolic 99–138; BP diastolic 61–90; PULSE 53–121; RESP 18–20
--- NOTE | 2018-11-15 07:30 | CONS ---
Assessment/Plan Assessment/Plan Assessment/Plan (Daily) Assessment and recommendations; next 1. Patient with history of CVA admitted for sepsis with hematuria possibly UTI. 2. Pseudomonas isolated from sputum possibly colonization. 3. Chronic respiratory failure, patient however doing very well on T-piece via tracheostomy. Continue current supportive care. Consider discharge to [facility] with continuation of antibiotics per ID recommendations. Consultation Date/Type/Reason Admit Date/Time November 03, 2018 at 10:30 Initial Consult Date Type of Consult Pulmonary Patient condition is fairly stable. Remains awake and alert. Has remained hemodynamically stable. Patient having persistent hematuria. General exam; young male, on T-piece via tracheostomy, awake and responsive. Currently in no distress. Requesting Provider: BRANDT RAMÍREZ Date/Time of Note DATE: 11/15/18 TIME: 07:28 24 HR Interval Summary Free Text/Dictation Patient's condition is stable. Remains awake and appropriately responsive. Has remained hemodynamically stable. General exam; young male, on T-piece via tracheostomy, awake and alert. Currently in no distress. Exam/Review of Systems Exam Vitals Vital Signs Date Temp Pulse Resp B/P (MAP) Pulse Ox O2 O2 Flow FiO2 Time Delivery Rate 11/15/18 98.2 62 18 128/76 98 06:01 (93) 11/15/18 5.0 28 05:44 11/15/18 Aerosol 05:39 T Tube Intake and Output 11/14/18 11/14/18 11/15/18 1515:00 23:00 07:00 IntakeIntake Total 50 ml 550 ml 750 ml OutputOutput Total 1550 ml 650 ml BalanceBalance 50 ml -1000 ml 100 ml Exam H EENT exam; supple neck, no JVD. No lymphadenopathy. Midline trachea. No thyromegaly. Tracheostomy in place. Attached to T-piece. Patient has fair dentition. Chest exam; clear to auscultation. S1-S2 audible, no murmurs. Regular rhythm. Abdomen exam; soft, nontender. No organomegaly. G-tube in place. Bowel sounds audible. Extremity exam; no peripheral edema clubbing. 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 No focal motor deficit. Results Result Diagram: 11/15/18 0515 11/15/18 0515 Results 24hrs Laboratory Tests Test 11/14/18 08:44 11/15/18 05:15 Lab Scanned Report REFERENCE LAB White Blood Count 7.2 # Red Blood Count 4.25 L Hemoglobin 13.2 L Hematocrit 39.4 L Mean Corpuscular Volume 92.7 Mean Corpuscular Hemoglobin 31.1 Mean Corpuscular Hemoglobin Concent 33.5 Red Cell Distribution Width 12.9 Platelet Count 225 Mean Platelet Volume 9.5 Immature Granulocytes % 1.100 H Neutrophils % 60.8 Lymphocytes % 20.2 Monocytes % 10.9 Eosinophils % 5.9 Basophils % 1.1 Nucleated Red Blood Cells % 0.0 Immature Granulocytes # 0.080 H Neutrophils # 4.4 Lymphocytes # 1.5 Monocytes # 0.8 Eosinophils # 0.4 Basophils # 0.1 Nucleated Red Blood Cells # 0.0 Sodium Level 143 Potassium Level 3.7 Chloride Level 104 Carbon Dioxide Level 29 Anion Gap 10 Blood Urea Nitrogen 9 Creatinine 0.61 Est Glomerular Filtrat Rate mL/min > 60 Glucose Level 85 Calcium Level 9.1 Medications Medication Current Medications Naloxone HCl (Narcan) 1 mg Q2M PRN IV LETHARGY Last administered on 11/03/18 07:19; Admin Dose 1 MG; Start 11/03/18 at 07:00 IV Flush (NS 3 ml) 3 ml PER PROTOCOL IV ; Start 11/03/18 at 12:00 Ondansetron HCl (Zofran Inj) 4 mg Q6H PRN IV NAUSEA/VOMITING Last administered on 11/07/18 17:46; Admin Dose 4 MG; Start 11/03/18 at 12:00 Acetaminophen (Tylenol Tab) 650 mg Q6H PRN PO .PAIN 1-3 OR TEMP Last administered on 11/12/18 08:45; Admin Dose 650 MG; Start 11/03/18 at 12:00 Acetaminophen/ Hydrocodone Bitart ([place] (5/325)) 1 tab Q6H PRN PO .MOD PAIN 4- 6 Last administered on 11/14/18 14:12; Admin Dose 1 TAB; Start 11/03/18 at 12:00 Docusate Sodium (Colace) 100 mg Q12H PRN PO .CONSTIPATION; Start 11/03/18 at 12:00 Magnesium Hydroxide (Milk Of Mag) 30 ml DAILY PRN PO .CONSTIPATION Last administered on 11/07/18 17:47; Admin Dose 30 ML; Start 11/03/18 at 12:00 Albuterol/ Ipratropium (Duoneb) 3 ml Q4H RESP THERAPY PRN HHN SHORTNESS OF BREATH Last administered on 11/06/18 05:07; Admin Dose 3 ML; Start 11/03/18 at 12:00 Hydralazine HCl (Apresoline) 10 mg Q6H PRN IV ELEVATED BLOOD PRESSURE; Start 11/03/18 at 12:00 Nitroglycerin (Nitroglycerin (Sl Tab) 0.4 Mg) 1 tab Q5M PRN SL ANGINA; Start 11/03/18 at 12:00 Aspirin (Ecotrin) 325 mg DAILY PO Last administered on 11/14/18 09:36; Admin Dose 325 MG; Start 11/04/18 at 09:00 Ascorbic Acid (Vitamin C) 500 mg DAILY GTB Last administered on 11/14/18 09:36; Admin Dose 500 MG; Start 11/04/18 at 09:00 Atorvastatin Calcium (Lipitor) 80 mg QHS GTB Last administered on 11/14/18 20:53; Admin Dose 80 MG; Start 11/03/18 at 21:00 Bisacodyl (Dulcolax Supp) 10 mg DAILY PRN [place] CONSTIPATION; Start 11/03/18 at 12:00 Chlorhexidine Gluconate (Peridex) 15 ml Q12H MM Last administered on 11/14/18 23:34; Admin Dose 15 ML; Start 11/03/18 at 12:00 Clonidine (Catapres) 0.2 mg Q8H PRN GTB SBP ABOVE 160; Start 11/03/18 at 12:00 Valproate Sodium (Depakene Liquid Cup) 500 mg BID GTB Last administered on 11/14/18 20:52; Admin Dose 500 MG; Start 11/03/18 at 21:00 Zinc Sulfate (Zinc Sulfate) 220 mg DAILY GTB Last administered on 11/14/18 09:36; Admin Dose 220 MG; Start 11/04/18 at 09:00 Lactobacillus Acidophilus/ Rhamnosus (Culturelle) 1 cap DAILY PO Last administered on 11/14/18 09:36; Admin Dose 1 CAP; Start 11/04/18 at 09:00 Multivitamins/ Minerals (Theragran-M) 1 tab DAILY PO Last administered on 9at 09:36; Admin Dose 1 TAB; Start 11/04/18 at 09:00 Metoprolol Tartrate (Lopressor) 25 mg BID PO Last administered on 11/14/18 09:37; Admin Dose 25 MG; Start 11/03/18 at 21:00 Gabapentin (Neurontin) 600 mg BID GTB Last administered on 11/14/18 20:53; Admin Dose 600 MG; Start 11/04/18 at 12:00 Risperidone (Risperdal) 2 mg DAILY GTB Last administered on 11/14/18 09:36; Admin Dose 2 MG; Start 11/04/18 at 14:00 Mupirocin (Bactroban) 1 applic BID TOP Last administered on 11/14/18 20:54; Admin Dose 1 APPLIC; Start 11/05/18 at 12:00 Quetiapine Fumarate (Seroquel) 12.5 mg Q8 PRN GTB AGITATION Last administered on 11/14/18 20:53; Admin Dose 12.5 MG; Start 11/06/18 at 11:00 Diphenhydramine HCl (Benadryl) 25 mg Q6H PRN IV ITCHING Last administered on 11/14/18 20:53; Admin Dose 25 MG; Start 11/06/18 at 18:00 Famotidine (Pepcid) 20 mg BID GTB Last administered on 11/14/18 20:53; Admin Dose 20 MG; Start 11/07/18 at 09:00 Cefepime HCl 50 ml @ 100 mls/hr Q12 IVPB Last administered on 11/14/18 20:51; Admin Dose 100 MLS/HR; Start 11/12/18 at 14:00 WILMAR HARRIS Nov 15, 2018 07:30
--- NOTE | 2018-11-15 08:49 | CONS ---
Consult Date/Type/Reason Admit Date/Time November 03, 2018 at 10:30 Initial Consult Date Type of Consultation: Pulm Requesting Provider: BRANDT RAMÍREZ Date/Time of Note DATE: 11/15/18 TIME: 08:47 Subjective NO acute events - pt stable - no CP- in good fluid status now. Less agitated. ROS: No fever, no chills, no nausea, no vomiting, no diarrhea/constipation - per nurse Objective Vitals Vital Signs Date Temp Pulse Resp B/P (MAP) Pulse Ox O2 O2 Flow FiO2 Time Delivery Rate 11/15/18 64 08:43 11/15/18 98.2 18 128/76 98 06:01 (93) 11/15/18 5.0 28 05:44 11/15/18 Aerosol 05:39 T Tube Intake and Output 11/14/18 11/14/18 11/15/18 1515:00 23:00 07:00 IntakeIntake Total 50 ml 550 ml 750 ml OutputOutput Total 1550 ml 650 ml BalanceBalance 50 ml -1000 ml 100 ml Exam General: WN/WD/NAD, AOx confused HEENT: Unicetric/atraumatic/EOMI (does not follow commands) NECK: trach Lymph: no lymphadenopathy HEART: regular with no S3, II/ systolic murmur at apex LUNGS: Coarse sounds ABD: soft, NT, ND, +BS : Intact, Higgins Neuro: non focal SKIN: chronic changes EXT: trace edema Results/Medications Result Diagram: 11/15/1815 11/15/18 0515 Results 24 hrs Laboratory Tests Test 11/15/18 05:15 White Blood Count 7.2 # Red Blood Count 4.25 L Hemoglobin 13.2 L Hematocrit 39.4 L Mean Corpuscular Volume 92.7 Mean Corpuscular Hemoglobin 31.1 Mean Corpuscular Hemoglobin Concent 33.5 Red Cell Distribution Width 12.9 Platelet Count 225 Mean Platelet Volume 9.5 Immature Granulocytes % 1.100 H Neutrophils % 60.8 Lymphocytes % 20.2 Monocytes % 10.9 Eosinophils % 5.9 Basophils % 1.1 Nucleated Red Blood Cells % 0.0 Immature Granulocytes # 0.080 H Neutrophils # 4.4 Lymphocytes # 1.5 Monocytes # 0.8 Eosinophils # 0.4 Basophils # 0.1 Nucleated Red Blood Cells # 0.0 Sodium Level 143 Potassium Level 3.7 Chloride Level 104 Carbon Dioxide Level 29 Anion Gap 10 Blood Urea Nitrogen 9 Creatinine 0.61 Est Glomerular Filtrat Rate mL/min > 60 Glucose Level 85 Calcium Level 9.1 Home Meds Reported Medications Zinc Sulfate* (Zinc Sulfate*) 220 Mg Tablet, 220 MG GTB DAILY, TAB STOP TAKING 11/21/18 11/03/18 Ascorbic Acid* (Vitamin C*) 500 Mg Capsule.sa, 500 MG GTB DAILY, CAP 11/03/18 Valproic Acid* (Valproic Acid* Liq) 250 Mg/5 Ml Syrup, 10 ML GTB BID, ML 11/03/18 Cran/Vitc/Mannose/Inulin/Brom (Uti-Stat Liquid) 3,875 Mg/30 Ml Liquid, 30 ML GTB DAILY 11/03/18 Acetaminophen* (Acetaminophen*) 500 MG Extra Strength Tablet, 1000 MG GTB Q4H P RN for PAIN -11/21, TAB 11/03/18 Acetaminophen* (Tylenol*) 325 Mg Tablet, 650 MG GTB BID PRN for PAIN AND OR ELEVATED TEMP, TAB 11/03/18 Acetaminophen* (Tylenol*) 325 Mg Tablet, 650 MG GTB Q4H PRN for MILD PAIN LEVEL 1-3, TAB AND FEVER 101F,STOP DATE 12/21/18 11/03/18 Acetaminophen* (Tylenol*) 325 Mg Tablet, 650 MG GTB NEEDED PRN for TRACH TUBE CHANGE, TAB 11/03/18 Risperidone* (Risperdal*) 1 Mg Tablet, 2 MG GTB DAILY, TAB STOP DATE 11/05/18 11/03/18 Amino Acids/Protein Hydrolys (PRO-STAT LIQUID) 30 Ml Liquid.pkt, 30 ML GTB BID 11/03/18 Hydrocodone/Acetaminophen ([place] 5-325 Tablet) 1 Each Tablet, 1 EACH GTB Q6H PRN for PAIN -02/21, TAB 11/03/18 Multivitamin with Minerals (Multivitamins with Minerals) 1 Each Tablet, 1 EACH GTB DAILY, TAB 11/03/18 Magnesium Hydroxide* (Milk Of Magnesia*) 400 Mg/5 Ml Oral.susp, 30 ML GTB NEEDED, ML 11/03/18 Heparin Sodium,Porcine/Pf (HEPARIN SOD 5,000 UNIT/ 0.5 ML) 5,000 Unit/0.5 Ml Vial, 5000 UNIT IJ Q12H, VIAL 11/03/18 Gabapentin* (Gabapentin*) 300 Mg Capsule, 600 MG GTB BID, #180 CAP 11/03/18 Mineral Oil* (Fleet* Mineral Oil Enema) Unknown Strength Oil, 1 APPLIC ID NEEDED PRN for CONSTIPATION, ENEMA 11/03/18 Bisacodyl (Dulcolax) 10 Mg Supp.rect, 10 MG RC PRN, SUPP.RECT 11/03/18 Docusate Sodium* (Colace*) 100 Mg Capsule, 200 MG GTB QHS, #60 CAP 11/03/18 Clonidine Hcl* (Clonidine Hcl*) 0.1 Mg Tab, 0.2 MG GTB Q8H PRN for HTN, TAB HOLD FOR SBPBELOW 110 OR HR BELOW 60 11/03/18 Chlorhexidine Gluconate (Periogard) 473 Ml Mouthwash, 15 ML MM Q12H, BOTTLE 11/03/18 Atorvastatin* (Atorvastatin*) 40 Mg Tablet, 80 MG GTB QHS, #30 TAB 11/03/18 Albuterol Sulfate* (Albuterol Sulfate* Neb) 0.083%-3 Ml Neb, 2.5 MG NEB Q6H PRN for WHEEZING AND SOB, #30 VIAL AND NEEDED Q3H 11/03/18 Lactobacillus Acidophilus/Pect (Acidophilus-Pectin Capsule) 1 Each Capsule, 1 EACH GTB DAILY, CAP 11/03/18 Medications Current Medications Naloxone HCl (Narcan) 1 mg Q2M PRN IV LETHARGY Last administered on 11/03/18at 07:19; Admin Dose 1 MG; Start 11/03/18 at 07:00 IV Flush (NS 3 ml) 3 ml PER PROTOCOL IV ; Start 11/03/18 at 12:00 Ondansetron HCl (Zofran Inj) 4 mg Q6H PRN IV NAUSEA/VOMITING Last administered on 11/07/18at 17:46; Admin Dose 4 MG; Start 11/03/18 at 12:00 Acetaminophen (Tylenol Tab) 650 mg Q6H PRN PO .PAIN 1-3 OR TEMP Last administered on 11/12/18at 08:45; Admin Dose 650 MG; Start 11/03/18 at 12:00 Acetaminophen/ Hydrocodone Bitart ([place] (5/325)) 1 tab Q6H PRN PO .MOD PAIN 4- 6 Last administered on 11/14/18 14:12; Admin Dose 1 TAB; Start 11/03/18 at 12:00 Docusate Sodium (Colace) 100 mg Q12H PRN PO .CONSTIPATION; Start 11/03/18 at 12:00 Magnesium Hydroxide (Milk Of Mag) 30 ml DAILY PRN PO .CONSTIPATION Last adm inistered on 11/07/18at 17:47; Admin Dose 30 ML; Start 11/03/18 at 12:00 Albuterol/ Ipratropium (Duoneb) 3 ml Q4H RESP THERAPY PRN HHN SHORTNESS OF BREATH Last administered on 11/06/18 05:07; Admin Dose 3 ML; Start 11/03/18 at 12:00 Hydralazine HCl (Apresoline) 10 mg Q6H PRN IV ELEVATED BLOOD PRESSURE; Start 11/03/18 at 12:00 Nitroglycerin (Nitroglycerin (Sl Tab) 0.4 Mg) 1 tab Q5M PRN SL ANGINA; Start 11/03/18 at 12:00 Aspirin (Ecotrin) 325 mg DAILY PO Last administered on 11/14/18 09:36; Admin Dose 325 MG; Start 11/04/18 at 09:00 Ascorbic Acid (Vitamin C) 500 mg DAILY GTB Last administered on 11/14/18 09:36; Admin Dose 500 MG; Start 11/04/18 at 09:00 Atorvastatin Calcium (Lipitor) 80 mg QHS GTB Last administered on 11/14/18 20:53; Admin Dose 80 MG; Start 11/03/18 at 21:00 Bisacodyl (Dulcolax Supp) 10 mg DAILY PRN ID CONSTIPATION; Start 11/03/18 at 12:00 Chlorhexidine Gluconate (Peridex) 15 ml Q12H MM Last administered on 11/14/18 23:34; Admin Dose 15 ML; Start 11/03/18 at 12:00 Clonidine (Catapres) 0.2 mg Q8H PRN GTB SBP ABOVE 160; Start 11/03/18 at 12:00 Valproate Sodium (Depakene Liquid Cup) 500 mg BID GTB Last administered on 11/14/18 20:52; Admin Dose 500 MG; Start 11/03/18 at 21:00 Zinc Sulfate (Zinc Sulfate) 220 mg DAILY GTB Last administered on 11/14/18 09:36; Admin Dose 220 MG; Start 11/04/18 at 09:00 Lactobacillus Acidophilus/ Rhamnosus (Culturelle) 1 cap DAILY PO Last administered on 11/14/18 09:36; Admin Dose 1 CAP; Start 11/04/18 at 09:00 Multivitamins/ Minerals (Theragran-M) 1 tab DAILY PO Last administered on 11/14/18 09:36; Admin Dose 1 TAB; Start 11/04/18 at 09:00 Metoprolol Tartrate (Lopressor) 25 mg BID PO Last administered on 11/14/18 09: 37; Admin Dose 25 MG; Start 11/03/18 at 21:00 Gabapentin (Neurontin) 600 mg BID GTB Last administered on 11/14/18 20:53; Admin Dose 600 MG; Start 11/04/18 at 12:00 Risperidone (Risperdal) 2 mg DAILY GTB Last administered on 11/14/18 09:36; Admin Dose 2 MG; Start 11/04/18 at 14:00 Mupirocin (Bactroban) 1 applic BID TOP Last administered on 11/14/18 20:54; Admin Dose 1 APPLIC; Start 11/05/18 at 12:00 Quetiapine Fumarate (Seroquel) 12.5 mg Q8 PRN GTB AGITATION Last administered on 11/14/18 20:53; Admin Dose 12.5 MG; Start 11/06/18 at 11:00 Diphenhydramine HCl (Benadryl) 25 mg Q6H PRN IV ITCHING Last administered on 11/14/18 20:53; Admin Dose 25 MG; Start 11/06/18 at 18:00 Famotidine (Pepcid) 20 mg BID GTB Last administered on 11/14/18 20:53; Admin Dose 20 MG; Start 11/07/18 at 09:00 Cefepime HCl 50 ml @ 100 mls/hr Q12 IVPB Last administered on 11/14/18 20:51; Admin Dose 100 MLS/HR; Start 11/12/18 at 14:00 Assessment/Plan Hospital Course (Demo Recall) 1. Positive troponin with upending consistent with non-ST elevation myocardial infarction-Echo EF 50-55 11/03 - no obvious CP - will monitor clinically now,. NO CP now - difficult to access, but appears to be comfortable. NO intervention currently planned. No change. 2. Abnormal electrocardiogram with incomplete right bundle branch block- now in sinus on tele. TREATED. 3. Tachycardia, mild - witha gition. Rate controlled. 4. Chronic respiratory failure, status post tracheostomy. Con't resp Rx. On meds. Con't resp Rx. 5. Dysphagia, status post G-tube. 6. History of subarachnoid hemorrhage - defer to neuro. 7. History of ventriculoperitoneal shunt. 8. 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 fib over 24 hrs. - rate controlled. Will follow. Sinus now - no afib notetd. 9. Hematuria - primary follows. VICENTE XIE MD Nov 15, 2018 08:48
[2018-11-15] MEDS: MUPIROCIN 2% 22 GM OINT TOP SCH ×2 (10:50→21:56)
[2018-11-15] MEDS: CEFEPIME 1GM/50 ML (PMX) 50 ML IVPB SCH ×2 (10:50→21:56)
[2018-11-15] MEDS: ASPIRIN (EC) 325 MG TAB PO SCH (10:51)
[2018-11-15] MEDS: VALPROIC ACID LIQUID CUP 250 MG/5 ML CUP GTB SCH ×2 (10:51→21:55)
[2018-11-15] MEDS: GABAPENTIN 300 MG CAP GTB SCH ×2 (10:51→21:56)
[2018-11-15] MEDS: ZINC SULFATE 220 MG CAP GTB SCH (10:51)
[2018-11-15] MEDS: RISPERIDONE 2 MG TAB GTB SCH (10:51)
[2018-11-15] MEDS: MULTIVITAMINS/MINERALS TAB PO SCH (10:51)
[2018-11-15] MEDS: LACTOBACILLUS RHAMNOSUS CAP PO SCH (10:51)
[2018-11-15] MEDS: FAMOTIDINE 20 MG TAB GTB SCH ×2 (10:52→21:56)
[2018-11-15] MEDS: ASCORBIC ACID 500 MG TAB GTB SCH (10:52)
[2018-11-15] MEDS: METOPROLOL 25 MG TAB PO SCH ×2 (10:55→21:55)
[2018-11-15] MEDS: CHLORHEXIDINE GLUCONATE 15 ML UD CUP MM SCH (12:00)
--- NOTE | 2018-11-15 14:53 | CONS ---
Assessment/Plan Assessment/Plan Assessment/Plan (Recall) 43 yo M with multiple comorbidities who presents for evaluation of ams in the context of respiratory sx. 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 for which neurology is consulted. The clinical picture raises concern for a cardioembolic process. Vasculitis is less likely. Echo (TTE) is unrevealing. JAKE was without evidence of intracardiac thrombus, though notable for spontaneous contrast and possible slow flow in the [place] CTA H/N was only notable for stable L MARNI aneurysm coil LDL 16, ESR 57, RPR neg, HIV neg Protein C and S low P: Cont ASA for secondary stroke prevention; LDL is at goal BP and other medical management per primary [place] as able Limit sedating medications where possible PT/OT/ST when able Will follow clinically Consultation Date/Type/Reason Admit Date/Time November 03, 2018 at 10:30 Type of Consult Neurology Reason for Consultation Strokes Requesting Provider: BRANDT RAMÍREZ Date/Time of Note DATE: 11/15/18 TIME: 14:52 24 HR Interval Summary Free Text/Dictation Continues acute care. Exam/Review of Systems Exam Vitals Vital Signs Date Temp Pulse Resp B/P (MAP) Pulse Ox O2 O2 Flow FiO2 Time Delivery Rate 11/15/18 60 12:30 11/15/18 98.0 20 114/87 96 12:09 (96) 11/15/18 Aerosol 5.0 28 08:47 Intake and Output 11/14/18 11/14/18 11/15/18 1515:00 23:00 07:00 IntakeIntake Total 50 ml 550 ml 750 ml OutputOutput Total 1550 ml 650 ml BalanceBalance 50 ml -1000 ml 100 ml Exam PE: Gen Appearance: No Apparent Distress; On 2-pt restraints HEENT: Trached Cardiovascular: Regular rate Abdomen: Soft Extremities: Dry NE: The patient was awake, alert, and mouthing words. Unable to understand d/t trach. The pt was able to follow simple axial and appendicular commands. Cranial nerve examination was limited by mental status. Pupils were equal and reactive to light. There was no afferent pupillary defect. Funduscopic examination was limited. Face was grossly symmetric, w/ present corneal and cough reflexes. Tone was normal. Muscle bulk was normal. I did not see fasciculations. The patient had spontaneous movement of all extremities. Coordination and gait testing was limited by mental status. Arm and leg reflexes were within normal limits and symmetric. Carlson's sign was absent. Plantar responses were flexor. Results Result Diagram: 11/15/1815 11/15/18 0515 Results 24hrs Laboratory Tests Test 11/15/18 05:15 White Blood Count 7.2 # Red Blood Count 4.25 L Hemoglobin 13.2 L Hematocrit 39.4 L Mean Corpuscular Volume 92.7 Mean Corpuscular Hemoglobin 31.1 Mean Corpuscular Hemoglobin Concent 33.5 Red Cell Distribution Width 12.9 Platelet Count 225 Mean Platelet Volume 9.5 Immature Granulocytes % 1.100 H Neutrophils % 60.8 Lymphocytes % 20.2 Monocytes % 10.9 Eosinophils % 5.9 Basophils % 1.1 Nucleated Red Blood Cells % 0.0 Immature Granulocytes # 0.080 H Neutrophils # 4.4 Lymphocytes # 1.5 Monocytes # 0.8 Eosinophils # 0.4 Basophils # 0.1 Nucleated Red Blood Cells # 0.0 Sodium Level 143 Potassium Level 3.7 Chloride Level 104 Carbon Dioxide Level 29 Anion Gap 10 Blood Urea Nitrogen 9 Creatinine 0.61 Est Glomerular Filtrat Rate mL/min > 60 Glucose Level 85 Calcium Level 9.1 Medications Medication Current Medications Naloxone HCl (Narcan) 1 mg Q2M PRN IV LETHARGY Last administered on 11/03/18at 07:19; Admin Dose 1 MG; Start 11/03/18 at 07:00 IV Flush (NS 3 ml) 3 ml PER PROTOCOL IV ; Start 11/03/18 at 12:00 Ondansetron HCl (Zofran Inj) 4 mg Q6H PRN IV NAUSEA/VOMITING Last administered on 11/07/18at 17:46; Admin Dose 4 MG; Start 11/03/18 at 12:00 Acetaminophen (Tylenol Tab) 650 mg Q6H PRN PO .PAIN 1-3 OR TEMP Last administered on 11/12/18at 08:45; Admin Dose 650 MG; Start 11/03/18 at 12:00 Acetaminophen/ Hydrocodone Bitart ([place] (5/325)) 1 tab Q6H PRN PO .MOD PAIN 4- 6 Last administered on 11/14/18at 14:12; Admin Dose 1 TAB; Start 11/03/18 at 12:00 Docusate Sodium (Colace) 100 mg Q12H PRN PO .CONSTIPATION; Start 11/03/18 at 12:00 Magnesium Hydroxide (Milk Of Mag) 30 ml DAILY PRN PO .CONSTIPATION Last administered on 11/07/18 17:47; Admin Dose 30 ML; Start 11/03/18 at 12:00 Albuterol/ Ipratropium (Duoneb) 3 ml Q4H RESP THERAPY PRN HHN SHORTNESS OF BREATH Last administered on 11/06/18 05:07; Admin Dose 3 ML; Start 11/03/18 at 12:00 Hydralazine HCl (Apresoline) 10 mg Q6H PRN IV ELEVATED BLOOD PRESSURE; Start 11/03/18 at 12:00 Nitroglycerin (Nitroglycerin (Sl Tab) 0.4 Mg) 1 tab Q5M PRN SL ANGINA; Start 11/03/18 at 12:00 Aspirin (Ecotrin) 325 mg DAILY PO Last administered on 11/15/18 10:51; Admin Dose 325 MG; Start 11/04/18 at 09:00 Ascorbic Acid (Vitamin C) 500 mg DAILY GTB Last administered on 11/15/18 10:52; Admin Dose 500 MG; Start 11/04/18 at 09:00 Atorvastatin Calcium (Lipitor) 80 mg QHS GTB Last administered on 11/14/18 20:53; Admin Dose 80 MG; Start 11/03/18 at 21:00 Bisacodyl (Dulcolax Supp) 10 mg DAILY PRN [place] CONSTIPATION; Start 11/03/18 at 12:00 Chlorhexidine Gluconate (Peridex) 15 ml Q12H MM Last administered on 11/14/18 23:34; Admin Dose 15 ML; Start 11/03/18 at 12:00 Clonidine (Catapres) 0.2 mg Q8H PRN GTB SBP ABOVE 160; Start 11/03/18 at 12:00 Valproate Sodium (Depakene Liquid Cup) 500 mg BID GTB Last administered on 11/15/18 10:51; Admin Dose 500 MG; Start 11/03/18 at 21:00 Zinc Sulfate (Zinc Sulfate) 220 mg DAILY GTB Last administered on 11/15/18 1 0:51; Admin Dose 220 MG; Start 11/04/18 at 09:00 Lactobacillus Acidophilus/ Rhamnosus (Culturelle) 1 cap DAILY PO Last administered on 11/15/18 10:51; Admin Dose 1 CAP; Start 11/04/18 at 09:00 Multivitamins/ Minerals (Theragran-M) 1 tab DAILY PO Last administered on 11/15/18 10:51; Admin Dose 1 TAB; Start 11/04/18 at 09:00 Metoprolol Tartrate (Lopressor) 25 mg BID PO Last administered on 11/15/18 10:55; Admin Dose 25 MG; Start 11/03/18 at 21:00 Gabapentin (Neurontin) 600 mg BID GTB Last administered on 11/15/18 10:51; Admin Dose 600 MG; Start 11/04/18 at 12:00 Risperidone (Risperdal) 2 mg DAILY GTB Last administered on 11/15/18 10:51; Admin Dose 2 MG; Start 11/04/18 at 14:00 Mupirocin (Bactroban) 1 applic BID TOP Last administered on 11/14/18 20:54; Admin Dose 1 APPLIC; Start 11/05/18 at 12:00 Quetiapine Fumarate (Seroquel) 12.5 mg Q8 PRN GTB AGITATION Last administered on 11/14/18 20:53; Admin Dose 12.5 MG; Start 11/06/18 at 11:00 Diphenhydramine HCl (Benadryl) 25 mg Q6H PRN IV ITCHING Last administered on 11/14/18 20:53; Admin Dose 25 MG; Start 11/06/18 at 18:00 Famotidine (Pepcid) 20 mg BID GTB Last administered on 11/15/18 10:52; Admin Dose 20 MG; Start 11/07/18 at 09:00 Cefepime HCl 50 ml @ 100 mls/hr Q12 IVPB Last administered on 11/15/18 10:50; Admin Dose 100 MLS/HR; Start 11/12/18 at 14:00 MOY BENJAMIN NP Nov 15, 2018 14:53
--- NOTE | 2018-11-15 15:28 | CONS ---
Assessment/Plan Assessment/Plan Hospital Course (Demo Recall) No acute changes. Awake, looks comfortable, no fevers Microbiology: Urine culture neg, sputum cx + PSA Antimicrobials: Cefepime. Indwelling's: Trach PEG Higgins Physical examination: This is a chronically ill-appearing middle-aged man who is noncommunicative the patient is in no distress. Head atraumatic normocephalic. Neck is supple. Tracheostomy present. Chest rise symmetrical, breath sounds diminished to bases. Heart: S1-S2. Abdomen soft bowel sounds present. Patient has Higgins catheter with bloody urine. Extremities without cyanosis. Assessment: 1. Hematuria 2. Status post pneumonia 3. Chronic respiratory failure and dysphagia 4. Status post coag negative staph bacteremia on admission consistent with contaminant 5. Chronic encephalopathy, history of subarachnoid hemorrhage Plan: Stable, continue antibiotics, continue bladder irrigation per urology Consultation Date/Type/Reason Admit Date/Time November 03, 2018 at 10:30 Initial Consult Date Type of Consult id Requesting Provider: BRANDT RAMÍREZ Date/Time of Note DATE: 11/15/18 TIME: 15:28 Exam/Review of Systems Exam Vitals Vital Signs Date Temp Pulse Resp B/P (MAP) Pulse Ox O2 O2 Flow FiO2 Time Delivery Rate 11/15/18 60 12:30 11/15/18 98.0 20 114/87 96 12:09 (96) 11/15/18 Aerosol 5.0 28 08:47 Intake and Output 11/14/18 11/14/18 11/15/18 1515:00 23:00 07:00 IntakeIntake Total 50 ml 550 ml 750 ml OutputOutput Total 1550 ml 650 ml BalanceBalance 50 ml -1000 ml 100 ml Results Result Diagram: 11/15/18 0515 11/15/18 0515 Results 24hrs Laboratory Tests Test 11/15/18 05:15 White Blood Count 7.2 # Red Blood Count 4.25 L Hemoglobin 13.2 L Hematocrit 39.4 L Mean Corpuscular Volume 92.7 Mean Corpuscular Hemoglobin 31.1 Mean Corpuscular Hemoglobin Concent 33.5 Red Cell Distribution Width 12.9 Platelet Count 225 Mean Platelet Volume 9.5 Immature Granulocytes % 1.100 H Neutrophils % 60.8 Lymphocytes % 20.2 Monocytes % 10.9 Eosinophils % 5.9 Basophils % 1.1 Nucleated Red Blood Cells % 0.0 Immature Granulocytes # 0.080 H Neutrophils # 4.4 Lymphocytes # 1.5 Monocytes # 0.8 Eosinophils # 0.4 Basophils # 0.1 Nucleated Red Blood Cells # 0.0 Sodium Level 143 Potassium Level 3.7 Chloride Level 104 Carbon Dioxide Level 29 Anion Gap 10 Blood Urea Nitrogen 9 Creatinine 0.61 Est Glomerular Filtrat Rate mL/min > 60 Glucose Level 85 Calcium Level 9.1 Medications Medication Current Medications Naloxone HCl (Narcan) 1 mg Q2M PRN IV LETHARGY Last administered on 11/03/18 07:19; Admin Dose 1 MG; Start 11/03/18 at 07:00 IV Flush (NS 3 ml) 3 ml PER PROTOCOL IV ; Start 11/03/18 at 12:00 Ondansetron HCl (Zofran Inj) 4 mg Q6H PRN IV NAUSEA/VOMITING Last administered on 11/07/18at 17:46; Admin Dose 4 MG; Start 11/03/18 at 12:00 Acetaminophen (Tylenol Tab) 650 mg Q6H PRN PO .PAIN 1-3 OR TEMP Last administered on 11/12/18at 08:45; Admin Dose 650 MG; Start 11/03/18 at 12:00 Acetaminophen/ Hydrocodone Bitart ([place] (5/325)) 1 tab Q6H PRN PO .MOD PAIN 4- 6 Last administered on 11/14/18 14:12; Admin Dose 1 TAB; Start 11/03/18 at 12:00 Docusate Sodium (Colace) 100 mg Q12H PRN PO .CONSTIPATION; Start 11/03/18 at 12:00 Magnesium Hydroxide (Milk Of Mag) 30 ml DAILY PRN PO .CONSTIPATION Last administered on 11/07/18at 17:47; Admin Dose 30 ML; Start 11/03/18 at 12:00 Albuterol/ Ipratropium (Duoneb) 3 ml Q4H RESP THERAPY PRN HHN SHORTNESS OF BREATH Last administered on 11/06/18 05:07; Admin Dose 3 ML; Start 11/03/18 at 12:00 Hydralazine HCl (Apresoline) 10 mg Q6H PRN IV ELEVATED BLOOD PRESSURE; Start 11/03/18 at 12:00 Nitroglycerin (Nitroglycerin (Sl Tab) 0.4 Mg) 1 tab Q5M PRN SL ANGINA; Start 11/03/18 at 12:00 Aspirin (Ecotrin) 325 mg DAILY PO Last administered on 11/15/18 10:51; Admin Dose 325 MG; Start 11/04/18 at 09:00 Ascorbic Acid (Vitamin C) 500 mg DAILY GTB Last administered on 11/15/18 10:52; Admin Dose 500 MG; Start 11/04/18 at 09:00 Atorvastatin Calcium (Lipitor) 80 mg QHS GTB Last administered on 11/14/18 20: 53; Admin Dose 80 MG; Start 11/03/18 at 21:00 Bisacodyl (Dulcolax Supp) 10 mg DAILY PRN [place] CONSTIPATION; Start 11/03/18 at 12:00 Chlorhexidine Gluconate (Peridex) 15 ml Q12H MM Last administered on 11/14/18 23:34; Admin Dose 15 ML; Start 11/03/18 at 12:00 Clonidine (Catapres) 0.2 mg Q8H PRN GTB SBP ABOVE 160; Start 11/03/18 at 12:00 Valproate Sodium (Depakene Liquid Cup) 500 mg BID GTB Last administered on 11/15/18 10:51; Admin Dose 500 MG; Start 11/03/18 at 21:00 Zinc Sulfate (Zinc Sulfate) 220 mg DAILY GTB Last administered on 11/15/18 10:51; Admin Dose 220 MG; Start 11/04/18 at 09:00 Lactobacillus Acidophilus/ Rhamnosus (Culturelle) 1 cap DAILY PO Last administered on 11/15/18 10:51; Admin Dose 1 CAP; Start 11/04/18 at 09:00 Multivitamins/ Minerals (Theragran-M) 1 tab DAILY PO Last administered on 11/15/18 10:51; Admin Dose 1 TAB; Start 11/04/18 at 09:00 Metoprolol Tartrate (Lopressor) 25 mg BID PO Last administered on 11/15/18 10:55; Admin Dose 25 MG; Start 11/03/18 at 21:00 Gabapentin (Neurontin) 600 mg BID GTB Last administered on 11/15/18 10:51; Admin Dose 600 MG; Start 11/04/18 at 12:00 Risperidone (Risperdal) 2 mg DAILY GTB Last administered on 11/15/18 10:51; Ad min Dose 2 MG; Start 11/04/18 at 14:00 Mupirocin (Bactroban) 1 applic BID TOP Last administered on 11/14/18 20:54; Admin Dose 1 APPLIC; Start 11/05/18 at 12:00 Quetiapine Fumarate (Seroquel) 12.5 mg Q8 PRN GTB AGITATION Last administered on 11/14/18 20:53; Admin Dose 12.5 MG; Start 11/06/18 at 11:00 Diphenhydramine HCl (Benadryl) 25 mg Q6H PRN IV ITCHING Last administered on 11/14/18 20:53; Admin Dose 25 MG; Start 11/06/18 at 18:00 Famotidine (Pepcid) 20 mg BID GTB Last administered on 11/15/18 10:52; Admin Dose 20 MG; Start 11/07/18 at 09:00 Cefepime HCl 50 ml @ 100 mls/hr Q12 IVPB Last administered on 11/15/18 10:50; Admin Dose 100 MLS/HR; Start 11/12/18 at 14:00 AIMEE BRADSHAW NP Nov 15, 2018 15:28
[2018-11-15] MEDS: QUETIAPINE 25 MG TAB GTB PRN (15:46)
--- NOTE | 2018-11-15 19:10 | CONS ---
Consult Date/Type/Reason Admit Date/Time November 03, 2018 at 10:30 Initial Consult Date 11/14/18 Type of Consultation: Urology Reason for Consultation Hematuria Requesting Provider: BRANDT RAMÍREZ Date/Time of Note DATE: 11/15/18 TIME: 19:08 Subjective Patient condition is unchanged. Objective Vitals Vital Signs Date Temp Pulse Resp B/P (MAP) Pulse Ox O2 O2 Flow FiO2 Time Delivery Rate 11/15/18 5.0 28 17:39 11/15/18 69 18 96 Aerosol 17:38 11/15/18 97.7 126/83 15:33 (97) Intake and Output 11/14/18 11/14/18 11/15/18 1515:00 23:00 07:00 IntakeIntake Total 50 ml 550 ml 750 ml OutputOutput Total 1550 ml 650 ml BalanceBalance 50 ml -1000 ml 100 ml Exam Higgins catheter is draining clear urine to slightly tinged urine with the bladder irrigation Results/Medications Result Diagram: 11/15/18 0515 11/15/18 0515 Results 24 hrs Laboratory Tests Test 11/15/18 05:15 White Blood Count 7.2 # Red Blood Count 4.25 L Hemoglobin 13.2 L Hematocrit 39.4 L Mean Corpuscular Volume 92.7 Mean Corpuscular Hemoglobin 31.1 Mean Corpuscular Hemoglobin Concent 33.5 Red Cell Distribution Width 12.9 Platelet Count 225 Mean Platelet Volume 9.5 Immature Granulocytes % 1.100 H Neutrophils % 60.8 Lymphocytes % 20.2 Monocytes % 10.9 Eosinophils % 5.9 Basophils % 1.1 Nucleated Red Blood Cells % 0.0 Immature Granulocytes # 0.080 H Neutrophils # 4.4 Lymphocytes # 1.5 Monocytes # 0.8 Eosinophils # 0.4 Basophils # 0.1 Nucleated Red Blood Cells # 0.0 Sodium Level 143 Potassium Level 3.7 Chloride Level 104 Carbon Dioxide Level 29 Anion Gap 10 Blood Urea Nitrogen 9 Creatinine 0.61 Est Glomerular Filtrat Rate mL/min > 60 Glucose Level 85 Calcium Level 9.1 Home Meds Reported Medications Zinc Sulfate* (Zinc Sulfate*) 220 Mg Tablet, 220 MG GTB DAILY, TAB STOP TAKING 11/21/18 11/03/18 Ascorbic Acid* (Vitamin C*) 500 Mg Capsule.sa, 500 MG GTB DAILY, CAP 11/03/18 Valproic Acid* (Valproic Acid* Liq) 250 Mg/5 Ml Syrup, 10 ML GTB BID, ML 11/03/18 Cran/Vitc/Mannose/Inulin/Brom (Uti-Stat Liquid) 3,875 Mg/30 Ml Liquid, 30 ML GTB DAILY 11/03/18 Acetaminophen* (Acetaminophen*) 500 MG Extra Strength Tablet, 1000 MG GTB Q4H PRN for PAIN -11/21, TAB 11/03/18 Acetaminophen* (Tylenol*) 325 Mg Tablet, 650 MG GTB BID PRN for PAIN AND OR ELEVATED TEMP, TAB 11/03/18 Acetaminophen* (Tylenol*) 325 Mg Tablet, 650 MG GTB Q4H PRN for MILD PAIN LEVEL 1-3, TAB AND FEVER 101F,STOP DATE 12/21/18 11/03/18 Acetaminophen* (Tylenol*) 325 Mg Tablet, 650 MG GTB NEEDED PRN for TRACH TUBE CHANGE, TAB 11/03/18 Risperidone* (Risperdal*) 1 Mg Tablet, 2 MG GTB DAILY, TAB STOP DATE 11/05/18 11/03/18 Amino Acids/Protein Hydrolys (PRO-STAT LIQUID) 30 Ml Liquid.pkt, 30 ML GTB BID 11/03/18 Hydrocodone/Acetaminophen ([place] 5-325 Tablet) 1 Each Tablet, 1 EACH GTB Q6H PRN for PAIN -02/21, TAB 11/03/18 Multivitamin with Minerals (Multivitamins with Minerals) 1 Each Tablet, 1 EACH GTB DAILY, TAB 11/03/18 Magnesium Hydroxide* (Milk Of Magnesia*) 400 Mg/5 Ml Oral.susp, 30 ML GTB NEEDED, ML 11/03/18 Heparin Sodium,Porcine/Pf (HEPARIN SOD 5,000 UNIT/ 0.5 ML) 5,000 Unit/0.5 Ml Vial, 5000 UNIT IJ Q12H, VIAL 11/03/18 Gabapentin* (Gabapentin*) 300 Mg Capsule, 600 MG GTB BID, #180 CAP 11/03/18 Mineral Oil* (Fleet* Mineral Oil Enema) Unknown Strength Oil, 1 APPLIC MD NEEDED PRN for CONSTIPATION, ENEMA 11/03/18 Bisacodyl (Dulcolax) 10 Mg Supp.rect, 10 MG RC PRN, SUPP.RECT 11/03/18 Docusate Sodium* (Colace*) 100 Mg Capsule, 200 MG GTB QHS, #60 CAP 11/03/18 Clonidine Hcl* (Clonidine Hcl*) 0.1 Mg Tab, 0.2 MG GTB Q8H PRN for HTN, TAB HOLD FOR SBPBELOW 110 OR HR BELOW 60 11/03/18 Chlorhexidine Gluconate (Periogard) 473 Ml Mouthwash, 15 ML MM Q12H, BOTTLE 11/03/18 Atorvastatin* (Atorvastatin*) 40 Mg Tablet, 80 MG GTB QHS, #30 TAB 11/03/18 Albuterol Sulfate* (Albuterol Sulfate* Neb) 0.083%-3 Ml Neb, 2.5 MG NEB Q6H PRN for WHEEZING AND SOB, #30 VIAL AND NEEDED Q3H 11/03/18 Lactobacillus Acidophilus/Pect (Acidophilus-Pectin Capsule) 1 Each Capsule, 1 EACH GTB DAILY, CAP 11/03/18 Medications Current Medications Naloxone HCl (Narcan) 1 mg Q2M PRN IV LETHARGY Last administered on 11/03/18at 07:19; Admin Dose 1 MG; Start 11/03/18 at 07:00 IV Flush (NS 3 ml) 3 ml PER PROTOCOL IV ; Start 11/03/18 at 12:00 Ondansetron HCl (Zofran Inj) 4 mg Q6H PRN IV NAUSEA/VOMITING Last administered on 11/07/18at 17:46; Admin Dose 4 MG; Start 11/03/18 at 12:00 Acetaminophen (Tylenol Tab) 650 mg Q6H PRN PO .PAIN 1-3 OR TEMP Last administered on 11/12/18at 08:45; Admin Dose 650 MG; Start 11/03/18 at 12:00 Acetaminophen/ Hydrocodone Bitart ([place] (5/325)) 1 tab Q6H PRN PO .MOD PAIN 4- 6 Last administered on 11/14/18at 14:12; Admin Dose 1 TAB; Start 11/03/18 at 12:00 Docusate Sodium (Colace) 100 mg Q12H PRN PO .CONSTIPATION; Start 11/03/18 at 12:00 Magnesium Hydroxide (Milk Of Mag) 30 ml DAILY PRN PO .CONSTIPATION Last administered on 11/07/18at 17:47; Admin Dose 30 ML; Start 11/03/18 at 12:00 Albuterol/ Ipratropium (Duoneb) 3 ml Q4H RESP THERAPY PRN HHN SHORTNESS OF BREATH Last administered on 11/06/18 05:07; Admin Dose 3 ML; Start 11/03/18 at 12:00 Hydralazine HCl (Apresoline) 10 mg Q6H PRN IV ELEVATED BLOOD PRESSURE; Start 11/03/18 at 12:00 Nitroglycerin (Nitroglycerin (Sl Tab) 0.4 Mg) 1 tab Q5M PRN SL ANGINA; Start 11/03/18 at 12:00 Aspirin (Ecotrin) 325 mg DAILY PO Last administered on 11/15/18 10:51; Admin Dose 325 MG; Start 11/04/18 at 09:00 Ascorbic Acid (Vitamin C) 500 mg DAILY GTB Last administered on 11/15/18 10:52; Admin Dose 500 MG; Start 11/04/18 at 09:00 Atorvastatin Calcium (Lipitor) 80 mg QHS GTB Last administered on 11/14/18 20:53; Admin Dose 80 MG; Start 11/03/18 at 21:00 Bisacodyl (Dulcolax Supp) 10 mg DAILY PRN [place] CONSTIPATION; Start 11/03/18 at 12:00 Chlorhexidine Gluconate (Peridex) 15 ml Q12H MM Last administered on 11/14/18 23:34; Admin Dose 15 ML; Start 11/03/18 at 12:00 Clonidine (Catapres) 0.2 mg Q8H PRN GTB SBP ABOVE 160; Start 11/03/18 at 12:00 Valproate Sodium (Depakene Liquid Cup) 500 mg BID GTB Last administered on 11/15/18 10:51; Admin Dose 500 MG; Start 11/03/18 at 21:00 Zinc Sulfate (Zinc Sulfate) 220 mg DAILY GTB Last administered on 11/15/18 10:51; Admin Dose 220 MG; Start 11/04/18 at 09:00 Lactobacillus Acidophilus/ Rhamnosus (Culturelle) 1 cap DAILY PO Last administe red on 11/15/18 10:51; Admin Dose 1 CAP; Start 11/04/18 at 09:00 Multivitamins/ Minerals (Theragran-M) 1 tab DAILY PO Last administered on 11/15/18 10:51; Admin Dose 1 TAB; Start 11/04/18 at 09:00 Metoprolol Tartrate (Lopressor) 25 mg BID PO Last administered on 11/15/18 10:55; Admin Dose 25 MG; Start 11/03/18 at 21:00 Gabapentin (Neurontin) 600 mg BID GTB Last administered on 11/15/18 10:51; A dmin Dose 600 MG; Start 11/04/18 at 12:00 Risperidone (Risperdal) 2 mg DAILY GTB Last administered on 11/15/18 10:51; Admin Dose 2 MG; Start 11/04/18 at 14:00 Mupirocin (Bactroban) 1 applic BID TOP Last administered on 11/14/18 20:54; Admin Dose 1 APPLIC; Start 11/05/18 at 12:00 Quetiapine Fumarate (Seroquel) 12.5 mg Q8 PRN GTB AGITATION Last administered on 11/15/18 15:46; Admin Dose 12.5 MG; Start 11/06/18 at 11:00 Diphenhydramine HCl (Benadryl) 25 mg Q6H PRN IV ITCHING Last administered on 11/14/18 20:53; Admin Dose 25 MG; Start 11/06/18 at 18:00 Famotidine (Pepcid) 20 mg BID GTB Last administered on 11/15/18 10:52; Admin Dose 20 MG; Start 11/07/18 at 09:00 Cefepime HCl 50 ml @ 100 mls/hr Q12 IVPB Last administered on 11/15/18 10:50; Admin Dose 100 MLS/HR; Start 11/12/18 at 14:00 Assessment/Plan Hospital Course (Demo Recall) 43-year-old male with history of 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 Patient was evaluated and was found to have had an episode of apnea and altered mental status, he also was found to have elevated troponin and renal insufficiency. He is known to have a history of hypertension and high cholesterol. He has a tracheostomy and G-tube and an indwelling Higgins catheter. He was noted to have gross hematuria and that has not cleared even though the patient was treated with antibiotic and is well hydrated. Presently he does have a three-way Higgins catheter 20 Frisian and is on continuous bladder irrigation. The return from the irrigation is clear to clear pink. There are no clots. Continue the bladder irrigation and try to slow it down gradually. EDWIN HOGAN MD Nov 15, 2018 19:10
[2018-11-15] MEDS: DIPHENHYDRAMINE 50 MG INJ IV PRN (19:55)
[2018-11-15] MEDS: LORAZEPAM 2 MG INJ IV PRN (20:20)
--- NOTE | 2018-11-15 21:40 | PN ---
Date/Time of Note Date/Time of Note DATE: 11/15/18 TIME: 21:37 Assessment/Plan VTE Prophylaxis Risk score (from [facility] [place])>0 risk: 3 SCD applied (from [facility]): Yes Pharmacological prophylaxis: NA/contraindicated Pharm contraindication: bleeding Lines/Catheters IV Catheter Type (from [facility]): Peripheral IV Urinary Cath still in place: Yes Reason Cath still needed: other (indicate) (monitor I&O) Assessment/Plan Hospital Course 1. Embolic stroke - brain MRI: showing infarct - Per neurology team, hold off on benzos, continue Seroquel as needed, con tinue aspirin. 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 pain and fevers. - feedings per ST 2. Hematuria - Hematuria - hold lovenox for now - Suspect from pulled ly catheter. Restrains prn - ly catheter was replaced. - continue bladder irrigation per urologist 3. Elevated troponins - - signs of non-ST elevation myocardial infarction. - cardiology following - Continue high dose aspirin and Lipitor, Morphine p.r.n., nitroglycerin p.r.n. 4. Renal insufficiency- improved - Monitor renal panel 5. History of hypertension. - Continue to monitor for now. He is on hydralazine p.r.n. 6. History of high cholesterol. - Continue Lipitor. 7. Tracheostomy placement - continue respiratory care 8. Deep venous thrombosis prophylaxis 9. History of gastroesophageal reflux disease -- H2 kendall. DISPO/;PLAN: continue with bladder irrigation for hematuria. appears to be improving. continue to monitor Discussed POC with Dr. Hernandez Result Diagram: 11/15/1815 11/15/1815 Results 24hrs Laboratory Tests Test 11/15/18 05:15 White Blood Count 7.2 # Red Blood Count 4.25 L Hemoglobin 13.2 L Hematocrit 39.4 L Mean Corpuscular Volume 92.7 Mean Corpuscular Hemoglobin 31.1 Mean Corpuscular Hemoglobin Concent 33.5 Red Cell Distribution Width 12.9 Platelet Count 225 Mean Platelet Volume 9.5 Immature Granulocytes % 1.100 H Neutrophils % 60.8 Lymphocytes % 20.2 Monocytes % 10.9 Eosinophils % 5.9 Basophils % 1.1 Nucleated Red Blood Cells % 0.0 Immature Granulocytes # 0.080 H Neutrophils # 4.4 Lymphocytes # 1.5 Monocytes # 0.8 Eosinophils # 0.4 Basophils # 0.1 Nucleated Red Blood Cells # 0.0 Sodium Level 143 Potassium Level 3.7 Chloride Level 104 Carbon Dioxide Level 29 Anion Gap 10 Blood Urea Nitrogen 9 Creatinine 0.61 Est Glomerular Filtrat Rate mL/min > 60 Glucose Level 85 Calcium Level 9.1 Subjective 24 Hr Interval Summary Free Text/Dictation comfortable at present. no s/s of respiratory distress. still noted with pinkish urine in ly catheter Exam/Review of Systems Exam Vitals Vital Signs Date Temp Pulse Resp B/P (MAP) Pulse Ox O2 O2 Flow FiO2 Time Delivery Rate 11/15/18 98.0 75 20 109/71 95 20:41 (84) 11/15/18 5.0 28 17:39 11/15/18 Aerosol 17:38 Intake and Output 11/14/18 11/14/18 11/15/18 1515:00 23:00 07:00 IntakeIntake Total 50 ml 550 ml 750 ml OutputOutput Total 1550 ml 650 ml BalanceBalance 50 ml -1000 ml 100 ml Exam Constitutional: alert, oriented (alert to person) Neck: other (trach in place) Respiratory: other (no obvious wheezing/rhonchi) Gastrointestinal: other (peg tube in place) Genitourinary - Male: other (ly catheter with pinkish urine) Extremities: No edema Results Results 24hrs Laboratory Tests Test 11/15/18 05:15 White Blood Count 7.2 # Red Blood Count 4.25 L Hemoglobin 13.2 L Hematocrit 39.4 L Mean Corpuscular Volume 92.7 Mean Corpuscular Hemoglobin 31.1 Mean Corpuscular Hemoglobin Concent 33.5 Red Cell Distribution Width 12.9 Platelet Count 225 Mean Platelet Volume 9.5 Immature Granulocytes % 1.100 H Neutrophils % 60.8 Lymphocytes % 20.2 Monocytes % 10.9 Eosinophils % 5.9 Basophils % 1.1 Nucleated Red Blood Cells % 0.0 Immature Granulocytes # 0.080 H Neutrophils # 4.4 Lymphocytes # 1.5 Monocytes # 0.8 Eosinophils # 0.4 Basophils # 0.1 Nucleated Red Blood Cells # 0.0 Sodium Level 143 Potassium Level 3.7 Chloride Level 104 Carbon Dioxide Level 29 Anion Gap 10 Blood Urea Nitrogen 9 Creatinine 0.61 Est Glomerular Filtrat Rate mL/min > 60 Glucose Level 85 Calcium Level 9.1 Medications Medication Current Medications Naloxone HCl (Narcan) 1 mg Q2M PRN IV LETHARGY Last administered on 11/03/18 07:19; Admin Dose 1 MG; Start 11/03/18 at 07:00 IV Flush (NS 3 ml) 3 ml PER PROTOCOL IV ; Start 11/03/18 at 12:00 Ondansetron HCl (Zofran Inj) 4 mg Q6H PRN IV NAUSEA/VOMITING Last administered on 11/07/18 17:46; Admin Dose 4 MG; Start 11/03/18 at 12:00 Acetaminophen (Tylenol Tab) 650 mg Q6H PRN PO .PAIN 1-3 OR TEMP Last administered on 11/12/18 08:45; Admin Dose 650 MG; Start 11/03/18 at 12:00 Acetaminophen/ Hydrocodone Bitart ([place] (5/325)) 1 tab Q6H PRN PO .MOD PAIN 4- 6 Last administered on 11/14/18 14:12; Admin Dose 1 TAB; Start 11/03/18 at 12:00 Docusate Sodium (Colace) 100 mg Q12H PRN PO .CONSTIPATION; Start 11/03/18 at 12:00 Magnesium Hydroxide (Milk Of Mag) 30 ml DAILY PRN PO .CONSTIPATION Last administered on 11/07/18at 17:47; Admin Dose 30 ML; Start 11/03/18 at 12:00 Albuterol/ Ipratropium (Duoneb) 3 ml Q4H RESP THERAPY PRN HHN SHORTNESS OF BREATH Last administered on 11/06/18at 05:07; Admin Dose 3 ML; Start 11/03/18 at 12:00 Hydralazine HCl (Apresoline) 10 mg Q6H PRN IV ELEVATED BLOOD PRESSURE; Start 11/03/18 at 12:00 Nitroglycerin (Nitroglycerin (Sl Tab) 0.4 Mg) 1 tab Q5M PRN SL ANGINA; Start 11/03/18 at 12:00 Aspirin (Ecotrin) 325 mg DAILY PO Last administered on 11/15/18at 10:51; Admin Dose 325 MG; Start 11/04/18 at 09:00 Ascorbic Acid (Vitamin C) 500 mg DAILY GTB Last administered on 11/15/18 10:52; Admin Dose 500 MG; Start 11/04/18 at 09:00 Atorvastatin Calcium (Lipitor) 80 mg QHS GTB Last administered on 11/14/18 20:53; Admin Dose 80 MG; Start 11/03/18 at 21:00 Bisacodyl (Dulcolax Supp) 10 mg DAILY PRN OR CONSTIPATION; Start 11/03/18 at 1 2:00 Chlorhexidine Gluconate (Peridex) 15 ml Q12H MM Last administered on 11/14/18 23:34; Admin Dose 15 ML; Start 11/03/18 at 12:00 Clonidine (Catapres) 0.2 mg Q8H PRN GTB SBP ABOVE 160; Start 11/03/18 at 12:00 Valproate Sodium (Depakene Liquid Cup) 500 mg BID GTB Last administered on 11/15/18 10:51; Admin Dose 500 MG; Start 11/03/18 at 21:00 Zinc Sulfate (Zinc Sulfate) 220 mg DAILY GTB Last administered on 11/15/18 10:51; Admin Dose 220 MG; Start 11/04/18 at 09:00 Lactobacillus Acidophilus/ Rhamnosus (Culturelle) 1 cap DAILY PO Last administered on 11/15/18 10:51; Admin Dose 1 CAP; Start 11/04/18 at 09:00 Multivitamins/ Minerals (Theragran-M) 1 tab DAILY PO Last administered on 11/15/18 10:51; Admin Dose 1 TAB; Start 11/04/18 at 09:00 Metoprolol Tartrate (Lopressor) 25 mg BID PO Last administered on 11/15/18 10:55; Admin Dose 25 MG; Start 11/03/18 at 21:00 Gabapentin (Neurontin) 600 mg BID GTB Last administered on 11/15/18 10:51; Admin Dose 600 MG; Start 11/04/18 at 12:00 Risperidone (Risperdal) 2 mg DAILY GTB Last administered on 11/15/18 10:51; Admin Dose 2 MG; Start 11/04/18 at 14:00 Mupirocin (Bactroban) 1 applic BID TOP Last administered on 11/14/18 20:54; Admin Dose 1 APPLIC; Start 11/05/18 at 12:00 Quetiapine Fumarate (Seroquel) 12.5 mg Q8 PRN GTB AGITATION Last administered on 11/15/18 15:46; Admin Dose 12.5 MG; Start 11/06/18 at 11:00 Diphenhydramine HCl (Benadryl) 25 mg Q6H PRN IV ITCHING Last administered on 11/15/18 19:55; Admin Dose 25 MG; Start 11/06/18 at 18:00 Famotidine (Pepcid) 20 mg BID GTB Last administered on 11/15/18 10:52; Admin Dose 20 MG; Start 11/07/18 at 09:00 Cefepime HCl 50 ml @ 100 mls/hr Q12 IVPB Last administered on 11/15/18 10:50; Admin Dose 100 MLS/HR; Start 11/12/18 at 14:00 Lorazepam (Ativan) 1 mg Q6H PRN IV AGITATION Last administered on 11/15/18 20:20; Admin Dose 1 MG; Start 11/15/18 at 20:06 NICOLE LAN NP Nov 15, 2018 21:40
[2018-11-15] MEDS: ATORVASTATIN 40 MG TAB GTB SCH (21:56)
[2018-11-16] VITALS (17 sets, daily range): BP systolic 105–161; BP diastolic 66–92; PULSE 57–89; RESP 17–20
[2018-11-16] MEDS: QUETIAPINE 25 MG TAB GTB PRN (00:13)
[2018-11-16] MEDS: CHLORHEXIDINE GLUCONATE 15 ML UD CUP MM SCH ×3 (01:01→23:39)
[2018-11-16] MEDS: VALPROIC ACID LIQUID CUP 250 MG/5 ML CUP GTB SCH ×2 (08:33→21:38)
[2018-11-16] MEDS: CEFEPIME 1GM/50 ML (PMX) 50 ML IVPB SCH (08:33)
[2018-11-16] MEDS: ASPIRIN (EC) 325 MG TAB PO SCH (08:34)
[2018-11-16] MEDS: GABAPENTIN 300 MG CAP GTB SCH ×2 (08:34→21:38)
[2018-11-16] MEDS: ZINC SULFATE 220 MG CAP GTB SCH (08:34)
[2018-11-16] MEDS: MULTIVITAMINS/MINERALS TAB PO SCH (08:35)
[2018-11-16] MEDS: LACTOBACILLUS RHAMNOSUS CAP PO SCH (08:35)
[2018-11-16] MEDS: ASCORBIC ACID 500 MG TAB GTB SCH (08:35)
[2018-11-16] MEDS: RISPERIDONE 2 MG TAB GTB SCH (08:35)
[2018-11-16] MEDS: FAMOTIDINE 20 MG TAB GTB SCH ×2 (08:35→21:38)
[2018-11-16] MEDS: METOPROLOL 25 MG TAB PO SCH ×2 (08:36→21:39)
[2018-11-16] MEDS: MUPIROCIN 2% 22 GM OINT TOP SCH ×3 (08:36→21:39)
--- NOTE | 2018-11-16 10:33 | CONS ---
Assessment/Plan Assessment/Plan Assessment/Plan (Daily) Assessment and recommendations; 1. Patient with history of chronic respiratory failure maintained on T-piece admitted for hematuria and UTI with marked overall clinical improvement. 2. Coagulant negative staph aureus bacteremia likely skin contaminant. 3. Pseudomonas isolated from sputum, likely colonization. 4. 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 5. Stable seizure disorder. Continue current supportive care. Consider discharge. Consultation Date/Type/Reason Admit Date/Time November 03, 2018 at 10:30 Initial Consult Date Type of Consult Pulmonary Patient condition is fairly stable. Remains awake and alert. Has remained hemodynamically stable. Patient having persistent hematuria. General exam; young male, on T-piece via tracheostomy, awake and responsive. Currently in no distress. Requesting Provider: BRANDT RAMÍREZ Date/Time of Note DATE: 11/16/18 TIME: 10:31 24 HR Interval Summary Free Text/Dictation Patient's condition is stable. No further hematuria noted. Patient has remained hemodynamically stable. General exam; young male, awake alert, on T-piece via tracheostomy, currently in no distress. Exam/Review of Systems Exam Vitals Vital Signs Date Temp Pulse Resp B/P (MAP) Pulse Ox O2 O2 Flow FiO2 Time Delivery Rate 11/16/18 98.4 72 18 105/66 98 10:00 (79) 11/16/18 Aerosol 5.0 28 09:00 Intake and Output 11/15/18 11/15/18 11/16/18 1515:00 23:00 07:00 IntakeIntake Total 950 ml 460 ml OutputOutput Total 3250 ml 850 ml BalanceBalance -2300 ml -390 ml Exam HEENT exam; supple neck, no JVD. No lymphadenopathy. Midline trachea. No thyromegaly. Tracheostomy in place. Insertion site is clean. Patient has fair dentition. Pupils are midsize bilaterally. Chest exam; clear to auscultation. S1-S2 audible, no murmurs. Regular rhythm. Abdomen exam; soft, nontender. No organomegaly. G-tube in place. Bowel sounds audible. Extremity exam; peripheral edema clubbing. 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 Exhibiting generalized weakness. Results Result Diagram: 11/16/18 0554 11/16/18 0554 Results 24hrs Laboratory Tests Test 11/16/18 05:54 White Blood Count 8.4 Red Blood Count 4.17 L Hemoglobin 12.9 L Hematocrit 38.9 L Mean Corpuscular Volume 93.3 Mean Corpuscular Hemoglobin 30.9 Mean Corpuscular Hemoglobin Concent 33.2 Red Cell Distribution Width 13.0 Platelet Count 229 Mean Platelet Volume 9.7 Immature Granulocytes % 0.700 H Neutrophils % 53.6 Lymphocytes % 25.7 Monocytes % 11.7 H Eosinophils % 7.3 H Basophils % 1.0 Nucleated Red Blood Cells % 0.0 Immature Granulocytes # 0.060 H Neutrophils # 4.5 Lymphocytes # 2.2 Monocytes # 1.0 H Eosinophils # 0.6 H Basophils # 0.1 Nucleated Red Blood Cells # 0.0 Sodium Level 144 Potassium Level 3.9 Chloride Level 104 Carbon Dioxide Level 31 Anion Gap 9 Blood Urea Nitrogen 9 Creatinine 0.70 Est Glomerular Filtrat Rate mL/min > 60 Glucose Level 93 Calcium Level 9.2 Medications Medication Current Medications Naloxone HCl (Narcan) 1 mg Q2M PRN IV LETHARGY Last administered on 11/03/18 07:19; Admin Dose 1 MG; Start 11/03/18 at 07:00 IV Flush (NS 3 ml) 3 ml PER PROTOCOL IV ; Start 11/03/18 at 12:00 Ondansetron HCl (Zofran Inj) 4 mg Q6H PRN IV NAUSEA/VOMITING Last administered on 11/07/18 17:46; Admin Dose 4 MG; Start 11/03/18 at 12:00 Acetaminophen (Tylenol Tab) 650 mg Q6H PRN PO .PAIN 1-3 OR TEMP Last administered on 11/12/18 08:45; Admin Dose 650 MG; Start 11/03/18 at 12:00 Acetaminophen/ Hydrocodone Bitart ([place] (5/325)) 1 tab Q6H PRN PO .MOD PAIN 4- 6 Last administered on 11/14/18 14:12; Admin Dose 1 TAB; Start 11/03/18 at 12:00 Docusate Sodium (Colace) 100 mg Q12H PRN PO .CONSTIPATION; Start 11/03/18 at 12:00 Magnesium Hydroxide (Milk Of Mag) 30 ml DAILY PRN PO .CONSTIPATION Last administered on 5/27/19at 17:47; Admin Dose 30 ML; Start 11/03/18 at 12:00 Albuterol/ Ipratropium (Duoneb) 3 ml Q4H RESP THERAPY PRN HHN SHORTNESS OF BREATH Last administered on 11/06/18 05:07; Admin Dose 3 ML; Start 11/03/18 at 12:00 Hydralazine HCl (Apresoline) 10 mg Q6H PRN IV ELEVATED BLOOD PRESSURE; Start 11/03/18 at 12:00 Nitroglycerin (Nitroglycerin (Sl Tab) 0.4 Mg) 1 tab Q5M PRN SL ANGINA; Start 11/03/18 at 12:00 Aspirin (Ecotrin) 325 mg DAILY PO Last administered on 11/16/18 08:34; Admin Dose 325 MG; Start 11/04/18 at 09:00 Ascorbic Acid (Vitamin C) 500 mg DAILY GTB Last administered on 11/16/18 08:35; Admin Dose 500 MG; Start 11/04/18 at 09:00 Atorvastatin Calcium (Lipitor) 80 mg QHS GTB Last administered on 11/15/18 21:56; Admin Dose 80 MG; Start 11/03/18 at 21:00 Bisacodyl (Dulcolax Supp) 10 mg DAILY PRN [place] CONSTIPATION; Start 11/03/18 at 12:00 Chlorhexidine Gluconate (Peridex) 15 ml Q12H MM Last administered on 11/16/18 01:01; Admin Dose 15 ML; Start 11/03/18 at 12:00 Clonidine (Catapres) 0.2 mg Q8H PRN GTB SBP ABOVE 160; Start 11/03/18 at 12:00 Valproate Sodium (Depakene Liquid Cup) 500 mg BID GTB Last administered on 11/16/18 08:33; Admin Dose 500 MG; Start 11/03/18 at 21:00 Zinc Sulfate (Zinc Sulfate) 220 mg DAILY GTB Last administered on 11/16/18 08:34; Admin Dose 220 MG; Start 11/04/18 at 09:00 Lactobacillus Acidophilus/ Rhamnosus (Culturelle) 1 cap DAILY PO Last administered on 11/16/18 08:35; Admin Dose 1 CAP; Start 11/04/18 at 09:00 Multivitamins/ Minerals (Theragran-M) 1 tab DAILY PO Last administered on 11/16/18 08:35; Admin Dose 1 TAB; Start 11/04/18 at 09:00 Metoprolol Tartrate (Lopressor) 25 mg BID PO Last administered on 11/16/18 08:36; Admin Dose 25 MG; Start 11/03/18 at 21:00 Gabapentin (Neurontin) 600 mg BID GTB Last administered on 11/16/18 08:34; Admin Dose 600 MG; Start 11/04/18 at 12:00 Risperidone (Risperdal) 2 mg DAILY GTB Last administered on 11/16/18 08:35; Admin Dose 2 MG; Start 11/04/18 at 14:00 Mupirocin (Bactroban) 1 applic BID TOP Last administered on 11/15/18 21:56; Admin Dose 1 APPLIC; Start 11/05/18 at 12:00 Quetiapine Fumarate (Seroquel) 12.5 mg Q8 PRN GTB AGITATION Last administered on 11/16/18 00:13; Admin Dose 12.5 MG; Start 11/06/18 at 11:00 Diphenhydramine HCl (Benadryl) 25 mg Q6H PRN IV ITCHING Last administered on 11/15/18 19:55; Admin Dose 25 MG; Start 11/06/18 at 18:00 Famotidine (Pepcid) 20 mg BID GTB Last administered on 11/16/18 08:35; Admin Dose 20 MG; Start 11/07/18 at 09:00 Cefepime HCl 50 ml @ 100 mls/hr Q12 IVPB Last administered on 11/16/18 08:33; Admin Dose 100 MLS/HR; Start 11/12/18 at 14:00 Lorazepam (Ativan) 1 mg Q6H PRN IV AGITATION Last administered on 11/15/18 20:20; Admin Dose 1 MG; Start 11/15/18 at 20:06 WILMAR HARRIS Nov 16, 2018 10:32
[2018-11-16] MEDS ORDERED: METO-448 PO (12:38)
--- NOTE | 2018-11-16 12:40 | PDOCDIS ---
Discharge Instructions DIAGNOSIS Discharge Diagnosis 1. Embolic stroke 2. Hematuria 3. Elevated troponins 4. Renal insufficiency 5. History of hypertension. 6. History of high cholesterol 7. Tracheostomy placement 8. Deep venous thrombosis prophylaxis 9. History of gastroesophageal reflux disease CONDITION [id number] Patient Condition: [id number] Stable FOLLOW UP/APPOINTMENTS Follow-up Plan Further care and management per [facility] facility NICOLE LAN NP Nov 16, 2018 12:40
--- NOTE | 2018-11-16 12:53 | CONS ---
Assessment/Plan Assessment/Plan Hospital Course (Demo Recall) IMPRESSION: 1. Positive troponin/NSTEMI-now downtrended-Echo EF 50-55 11/03 2. Abnormal electrocardiogram with incomplete right bundle branch block. 3. Tachycardia, mild. 4. Chronic respiratory failure, status post tracheostomy. 5. Dysphagia, status post G-tube. 6. History of subarachnoid hemorrhage. 7. History of ventriculoperitoneal shunt. 8. 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 s/p JAKE 11/10 with no definite findings for source of embolus but spontaneous contrast in LA/SENAIT which is a marker for low flow/stasis and thus increased risk for development of thrombus(seen with low EF/AF, etc). NOrmal neck CTA Recc: -Tele -Continue asa/statin -Continue BB -Continue to trend cardiac enzymes which are downtrended -would continue to monitor for occult arrythmia(AF) -F/U hypercoag w/u -Lovenox now held due to hematuria Consultation Date/Type/Reason Admit Date/Time November 03, 2018 at 10:30 Initial Consult Date 11/04/18 Type of Consult Cardiology Reason for Consultation Nstemi Requesting Provider: BRANDT RAMÍREZ Date/Time of Note DATE: 11/16/18 TIME: 12:48 Exam/Review of Systems Vital Signs Vitals Vital Signs Date Temp Pulse Resp B/P (MAP) Pulse Ox O2 O2 Flow FiO2 Time Delivery Rate 11/16/18 98.6 84 20 109/71 97 12:23 (84) 11/16/18 Aerosol 5.0 28 09:00 Intake and Output 11/15/18 11/15/18 11/16/18 1515:00 23:00 07:00 IntakeIntake Total 950 ml 460 ml OutputOutput Total 3250 ml 850 ml BalanceBalance -2300 ml -390 ml Exam Exam Review of Systems: CONSTITUTIONAL: No fevers, chills. PULMONARY: No sob CARDIOVASCULAR: No chest pain/palpitations GASTROINTESTINAL: No nausea/vomiting. GENITOURINARY: No hematuria/dysuria. MUSCULOSKELETAL: No myagias/arthalgias. PSYCHIATRIC: The patient denies depression. NEUROLOGIC: No weakness Constitutional: alert Psych: no complaints Head: normocephalic ENMT: mucosa pink and moist Neck: supple, jvd (9 cm water) Respiratory: diminished breath sounds Cardiovascular: regular rate and rhythm Gastrointestinal: soft, non-tender Musculoskeletal: muscle tone (normal) Extremities: edema (none) Neurological: other (No focal deficits) Labs Result Diagram: 11/16/18 0554 11/16/18 0554 Results 24hrs Laboratory Tests Test 11/16/18 05:54 White Blood Count 8.4 Red Blood Count 4.17 L Hemoglobin 12.9 L Hematocrit 38.9 L Mean Corpuscular Volume 93.3 Mean Corpuscular Hemoglobin 30.9 Mean Corpuscular Hemoglobin Concent 33.2 Red Cell Distribution Width 13.0 Platelet Count 229 Mean Platelet Volume 9.7 Immature Granulocytes % 0.700 H Neutrophils % 53.6 Lymphocytes % 25.7 Monocytes % 11.7 H Eosinophils % 7.3 H Basophils % 1.0 Nucleated Red Blood Cells % 0.0 Immature Granulocytes # 0.060 H Neutrophils # 4.5 Lymphocytes # 2.2 Monocytes # 1.0 H Eosinophils # 0.6 H Basophils # 0.1 Nucleated Red Blood Cells # 0.0 Sodium Level 144 Potassium Level 3.9 Chloride Level 104 Carbon Dioxide Level 31 Anion Gap 9 Blood Urea Nitrogen 9 Creatinine 0.70 Est Glomerular Filtrat Rate mL/min > 60 Glucose Level 93 Calcium Level 9.2 Medications Medications Current Medications Naloxone HCl (Narcan) 1 mg Q2M PRN IV LETHARGY Last administered on 11/03/18at 07:19; Admin Dose 1 MG; Start 11/03/18 at 07:00 IV Flush (NS 3 ml) 3 ml PER PROTOCOL IV ; Start 11/03/18 at 12:00 Ondansetron HCl (Zofran Inj) 4 mg Q6H PRN IV NAUSEA/VOMITING Last administered on 11/07/18at 17:46; Admin Dose 4 MG; Start 11/03/18 at 12:00 Acetaminophen (Tylenol Tab) 650 mg Q6H PRN PO .PAIN 1-3 OR TEMP Last administered on 11/12/18at 08:45; Admin Dose 650 MG; Start 11/03/18 at 12:00 Acetaminophen/ Hydrocodone Bitart ([place] (5/325)) 1 tab Q6H PRN PO .MOD PAIN 4- 6 Last administered on 11/14/18at 14:12; Admin Dose 1 TAB; Start 11/03/18 at 12:00 Docusate Sodium (Colace) 100 mg Q12H PRN PO .CONSTIPATION; Start 11/03/18 at 12:00 Magnesium Hydroxide (Milk Of Mag) 30 ml DAILY PRN PO .CONSTIPATION Last administered on 11/07/18 17:47; Admin Dose 30 ML; Start 11/03/18 at 12:00 Albuterol/ Ipratropium (Duoneb) 3 ml Q4H RESP THERAPY PRN HHN SHORTNESS OF BREATH Last administered on 11/06/18 05:07; Admin Dose 3 ML; Start 11/03/18 at 12:00 Hydralazine HCl (Apresoline) 10 mg Q6H PRN IV ELEVATED BLOOD PRESSURE; Start 11/03/18 at 12:00 Nitroglycerin (Nitroglycerin (Sl Tab) 0.4 Mg) 1 tab Q5M PRN SL ANGINA; Start 11/03/18 at 12:00 Aspirin (Ecotrin) 325 mg DAILY PO Last administered on 11/16/18 08:34; Admin Dose 325 MG; Start 11/04/18 at 09:00 Ascorbic Acid (Vitamin C) 500 mg DAILY GTB Last administered on 11/16/18 08:35; Admin Dose 500 MG; Start 11/04/18 at 09:00 Atorvastatin Calcium (Lipitor) 80 mg QHS GTB Last administered on 11/15/18 2 1:56; Admin Dose 80 MG; Start 11/03/18 at 21:00 Bisacodyl (Dulcolax Supp) 10 mg DAILY PRN [place] CONSTIPATION; Start 11/03/18 at 12:00 Chlorhexidine Gluconate (Peridex) 15 ml Q12H MM Last administered on 11/16/18 01:01; Admin Dose 15 ML; Start 11/03/18 at 12:00 Clonidine (Catapres) 0.2 mg Q8H PRN GTB SBP ABOVE 160; Start 11/03/18 at 12:00 Valproate Sodium (Depakene Liquid Cup) 500 mg BID GTB Last administered on 11/16/18 08:33; Admin Dose 500 MG; Start 11/03/18 at 21:00 Zinc Sulfate (Zinc Sulfate) 220 mg DAILY GTB Last administered on 11/16/18 08:34; Admin Dose 220 MG; Start 11/04/18 at 09:00 Lactobacillus Acidophilus/ Rhamnosus (Culturelle) 1 cap DAILY PO Last administered on 11/16/18 08:35; Admin Dose 1 CAP; Start 11/04/18 at 09:00 Multivitamins/ Minerals (Theragran-M) 1 tab DAILY PO Last administered on 11/16/18 08:35; Admin Dose 1 TAB; Start 11/04/18 at 09:00 Metoprolol Tartrate (Lopressor) 25 mg BID PO Last administered on 11/16/18 08:36; Admin Dose 25 MG; Start 11/03/18 at 21:00 Gabapentin (Neurontin) 600 mg BID GTB Last administered on 11/16/18 08:34; Admin Dose 600 MG; Start 11/04/18 at 12:00 Risperidone (Risperdal) 2 mg DAILY GTB Last administered on 11/16/18 08:35; Admin Dose 2 MG; Start 11/04/18 at 14:00 Mupirocin (Bactroban) 1 applic BID TOP Last administered on 11/15/18 21:56; Admin Dose 1 APPLIC; Start 11/05/18 at 12:00 Quetiapine Fumarate (Seroquel) 12.5 mg Q8 PRN GTB AGITATION Last administered on 11/16/18 00:13; Admin Dose 12.5 MG; Start 11/06/18 at 11:00 Diphenhydramine HCl (Benadryl) 25 mg Q6H PRN IV ITCHING Last administered on 11/15/18 19:55; Admin Dose 25 MG; Start 11/06/18 at 18:00 Famotidine (Pepcid) 20 mg BID GTB Last administered on 11/16/18 08:35; Admin Dose 20 MG; Start 11/07/18 at 09:00 Cefepime HCl 50 ml @ 100 mls/hr Q12 IVPB Last administered on 11/16/18 08:33; Admin Dose 100 MLS/HR; Start 11/12/18 at 14:00 Lorazepam (Ativan) 1 mg Q6H PRN IV AGITATION Last administered on 11/15/18 20:20; Admin Dose 1 MG; Start 11/15/18 at 20:06 NORMAN KESSLER Nov 16, 2018 12:52
--- NOTE | 2018-11-16 13:06 | CONS ---
Assessment/Plan Assessment/Plan Assessment/Plan (Recall) 43 yo M with multiple comorbidities who presents for evaluation of ams in the context of respiratory sx. 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 for which neurology is consulted. The clinical picture raises concern for a cardioembolic process. Vasculitis is less likely. Echo (TTE) is unrevealing. JAKE was without evidence of intracardiac thrombus, though notable for spontaneous contrast and possible slow flow in the LA CTA H/N was only notable for stable L MARNI aneurysm coil LDL 16, ESR 57, RPR neg, HIV neg Protein C and S low P: Cont ASA for secondary stroke prevention; LDL is at goal BP and other medical management per primary Fleming as able Limit sedating medications where possible PT/OT/ST when able Will follow clinically Consultation Date/Type/Reason Admit Date/Time November 03, 2018 at 10:30 Type of Consult Neurology Reason for Consultation Strokes Requesting Provider: BRANDT RAMÍREZ Date/Time of Note DATE: 11/16/18 TIME: 13:06 24 HR Interval Summary Free Text/Dictation Continues acute care. Exam/Review of Systems Exam Vitals Vital Signs Date Temp Pulse Resp B/P (MAP) Pulse Ox O2 O2 Flow FiO2 Time Delivery Rate 11/16/18 98.6 84 20 109/71 97 12:23 (84) 11/16/18 Aerosol 5.0 28 09:00 Intake and Output 11/15/18 11/15/18 11/16/18 1515:00 23:00 07:00 IntakeIntake Total 950 ml 460 ml OutputOutput Total 3250 ml 850 ml BalanceBalance -2300 ml -390 ml Exam PE: Gen Appearance: No Apparent Distress; On 2-pt restraints HEENT: Trached Cardiovascular: Regular rate Abdomen: Soft Extremities: Dry NE: The patient was awake, alert, and mouthing words. Unable to understand d/t trach. The pt was able to follow simple axial and appendicular commands. Cranial nerve examination was limited by mental status. Pupils were equal and reactive to light. There was no afferent pupillary defect. Funduscopic examination was limited. Face was grossly symmetric, w/ present corneal and cough reflexes. Tone was normal. Muscle bulk was normal. I did not see fasciculations. The patient had spontaneous movement of all extremities. Coordination and gait testing was limited by mental status. Arm and leg reflexes were within normal limits and symmetric. Carlson's sign was absent. Plantar responses were flexor. Results Result Diagram: 11/16/18 0554 11/16/18 0554 Results 24hrs Laboratory Tests Test 11/16/18 05:54 White Blood Count 8.4 Red Blood Count 4.17 L Hemoglobin 12.9 L Hematocrit 38.9 L Mean Corpuscular Volume 93.3 Mean Corpuscular Hemoglobin 30.9 Mean Corpuscular Hemoglobin Concent 33.2 Red Cell Distribution Width 13.0 Platelet Count 229 Mean Platelet Volume 9.7 Immature Granulocytes % 0.700 H Neutrophils % 53.6 Lymphocytes % 25.7 Monocytes % 11.7 H Eosinophils % 7.3 H Basophils % 1.0 Nucleated Red Blood Cells % 0.0 Immature Granulocytes # 0.060 H Neutrophils # 4.5 Lymphocytes # 2.2 Monocytes # 1.0 H Eosinophils # 0.6 H Basophils # 0.1 Nucleated Red Blood Cells # 0.0 Sodium Level 144 Potassium Level 3.9 Chloride Level 104 Carbon Dioxide Level 31 Anion Gap 9 Blood Urea Nitrogen 9 Creatinine 0.70 Est Glomerular Filtrat Rate mL/min > 60 Glucose Level 93 Calcium Level 9.2 Medications Medication Current Medications Naloxone HCl (Narcan) 1 mg Q2M PRN IV LETHARGY Last administered on 11/03/18at 07:19; Admin Dose 1 MG; Start 11/03/18 at 07:00 IV Flush (NS 3 ml) 3 ml PER PROTOCOL IV ; Start 11/03/18 at 12:00 Ondansetron HCl (Zofran Inj) 4 mg Q6H PRN IV NAUSEA/VOMITING Last administered on 11/07/18at 17:46; Admin Dose 4 MG; Start 11/03/18 at 12:00 Acetaminophen (Tylenol Tab) 650 mg Q6H PRN PO .PAIN 1-3 OR TEMP Last administered on 11/12/18at 08:45; Admin Dose 650 MG; Start 11/03/18 at 12:00 Acetaminophen/ Hydrocodone Bitart ([place] (5/325)) 1 tab Q6H PRN PO .MOD PAIN 4- 6 Last administered on 11/14/18at 14:12; Admin Dose 1 TAB; Start 11/03/18 at 12:00 Docusate Sodium (Colace) 100 mg Q12H PRN PO .CONSTIPATION; Start 11/03/18 at 12:00 Magnesium Hydroxide (Milk Of Mag) 30 ml DAILY PRN PO .CONSTIPATION Last administered on 11/07/18 17:47; Admin Dose 30 ML; Start 11/03/18 at 12:00 Albuterol/ Ipratropium (Duoneb) 3 ml Q4H RESP THERAPY PRN HHN SHORTNESS OF BREATH Last administered on 11/06/18 05:07; Admin Dose 3 ML; Start 11/03/18 at 12:00 Hydralazine HCl (Apresoline) 10 mg Q6H PRN IV ELEVATED BLOOD PRESSURE; Start 11/03/18 at 12:00 Nitroglycerin (Nitroglycerin (Sl Tab) 0.4 Mg) 1 tab Q5M PRN SL ANGINA; Start 11/03/18 at 12:00 Aspirin (Ecotrin) 325 mg DAILY PO Last administered on 11/16/18 08:34; Admin Dose 325 MG; Start 11/04/18 at 09:00 Ascorbic Acid (Vitamin C) 500 mg DAILY GTB Last administered on 11/16/18 08:35; Admin Dose 500 MG; Start 11/04/18 at 09:00 Atorvastatin Calcium (Lipitor) 80 mg QHS GTB Last administered on 11/15/18 21:56; Admin Dose 80 MG; Start 11/03/18 at 21:00 Bisacodyl (Dulcolax Supp) [address] CONSTIPATION; Start 11/03/18 at 12:00 Chlorhexidine Gluconate (Peridex) 15 ml Q12H MM Last administered on 11/16/18 12:53; Admin Dose 15 ML; Start 11/03/18 at 12:00 Clonidine (Catapres) 0.2 mg Q8H PRN GTB SBP ABOVE 160; Start 11/03/18 at 12:00 Valproate Sodium (Depakene Liquid Cup) 500 mg BID GTB Last administered on 11/16/18 08:33; Admin Dose 500 MG; Start 11/03/18 at 21:00 Zinc Sulfate (Zinc Sulfate) 220 mg DAILY GTB Last administered on 11/16/18 08:34; Admin Dose 220 MG; Start 11/04/18 at 09:00 Lactobacillus Acidophilus/ Rhamnosus (Culturelle) 1 cap DAILY PO Last administered on 11/16/18 08:35; Admin Dose 1 CAP; Start 11/04/18 at 09:00 Multivitamins/ Minerals (Theragran-M) 1 tab DAILY PO Last administered on 11/16/18 08:35; Admin Dose 1 TAB; Start 11/04/18 at 09:00 Metoprolol Tartrate (Lopressor) 25 mg BID PO Last administered on 11/16/18 08:36; Admin Dose 25 MG; Start 11/03/18 at 21:00 Gabapentin (Neurontin) 600 mg BID GTB Last administered on 11/16/18 08:34; Ad min Dose 600 MG; Start 11/04/18 at 12:00 Risperidone (Risperdal) 2 mg DAILY GTB Last administered on 11/16/18 08:35; Admin Dose 2 MG; Start 11/04/18 at 14:00 Mupirocin (Bactroban) 1 applic BID TOP Last administered on 11/16/18 12:54; Admin Dose 1 APPLIC; Start 11/05/18 at 12:00 Quetiapine Fumarate (Seroquel) 12.5 mg Q8 PRN GTB AGITATION Last administered on 11/16/18 00:13; Admin Dose 12.5 MG; Start 11/06/18 at 11:00 Diphenhydramine HCl (Benadryl) 25 mg Q6H PRN IV ITCHING Last administered on 11/15/18 19:55; Admin Dose 25 MG; Start 11/06/18 at 18:00 Famotidine (Pepcid) 20 mg BID GTB Last administered on 11/16/18 08:35; Admin Dose 20 MG; Start 11/07/18 at 09:00 Cefepime HCl 50 ml @ 100 mls/hr Q12 IVPB Last administered on 11/16/18 08:33; Admin Dose 100 MLS/HR; Start 11/12/18 at 14:00 Lorazepam (Ativan) 1 mg Q6H PRN IV AGITATION Last administered on 11/15/18 20:20; Admin Dose 1 MG; Start 11/15/18 at 20:06 MOY BENJAMIN NP Nov 16, 2018 13:06
--- NOTE | 2018-11-16 16:16 | CONS ---
Assessment/Plan Assessment/Plan Hospital Course (Demo Recall) No acute changes. Awake, looks comfortable, no fevers Microbiology: Urine culture neg, sputum cx + PSA Antimicrobials: Cefepime. Indwelling's: Trach PEG Higgins Physical examination: This is a chronically ill-appearing middle-aged man who is noncommunicative the patient is in no distress. Head atraumatic normocephalic. Neck is supple. Tracheostomy present. Chest rise symmetrical, breath sounds diminished to bases. Heart: S1-S2. Abdomen soft bowel sounds present. Patient has Higgins catheter with bloody urine. Extremities without cyanosis. Assessment: 1. Hematuria 2. Status post pneumonia 3. Chronic respiratory failure and dysphagia 4. Status post coag negative staph bacteremia on admission consistent with contaminant 5. Chronic encephalopathy, history of subarachnoid hemorrhage Plan: Stable, DC antibiotics and observe Consultation Date/Type/Reason Admit Date/Time November 03, 2018 at 10:30 Initial Consult Date Type of Consult id Requesting Provider: BRANDT RAMÍREZ Date/Time of Note DATE: 11/16/18 TIME: 16:15 Exam/Review of Systems Exam Vitals Vital Signs Date Temp Pulse Resp B/P (MAP) Pulse Ox O2 O2 Flow FiO2 Time Delivery Rate 11/16/18 97.9 71 18 136/84 97 Trach 16:00 (101) Collar 11/16/18 5.0 28 09:00 Intake and Output 11/15/18 11/15/18 11/16/18 1515:00 23:00 07:00 IntakeIntake Total 950 ml 460 ml OutputOutput Total 3250 ml 850 ml BalanceBalance -2300 ml -390 ml Results Result Diagram: 11/16/18 0554 11/16/18 0554 Results 24hrs Laboratory Tests Test 11/16/18 05:54 White Blood Count 8.4 Red Blood Count 4.17 L Hemoglobin 12.9 L Hematocrit 38.9 L Mean Corpuscular Volume 93.3 Mean Corpuscular Hemoglobin 30.9 Mean Corpuscular Hemoglobin Concent 33.2 Red Cell Distribution Width 13.0 Platelet Count 229 Mean Platelet Volume 9.7 Immature Granulocytes % 0.700 H Neutrophils % 53.6 Lymphocytes % 25.7 Monocytes % 11.7 H Eosinophils % 7.3 H Basophils % 1.0 Nucleated Red Blood Cells % 0.0 Immature Granulocytes # 0.060 H Neutrophils # 4.5 Lymphocytes # 2.2 Monocytes # 1.0 H Eosinophils # 0.6 H Basophils # 0.1 Nucleated Red Blood Cells # 0.0 Sodium Level 144 Potassium Level 3.9 Chloride Level 104 Carbon Dioxide Level 31 Anion Gap 9 Blood Urea Nitrogen 9 Creatinine 0.70 Est Glomerular Filtrat Rate mL/min > 60 Glucose Level 93 Calcium Level 9.2 Medications Medication Current Medications Naloxone HCl (Narcan) 1 mg Q2M PRN IV LETHARGY Last administered on 11/03/18 07:19; Admin Dose 1 MG; Start 11/03/18 at 07:00 IV Flush (NS 3 ml) 3 ml PER PROTOCOL IV ; Start 11/03/18 at 12:00 Ondansetron HCl (Zofran Inj) 4 mg Q6H PRN IV NAUSEA/VOMITING Last administered on 11/07/18 17:46; Admin Dose 4 MG; Start 11/03/18 at 12:00 Acetaminophen (Tylenol Tab) 650 mg Q6H PRN PO .PAIN 1-3 OR TEMP Last administered on 11/12/18 08:45; Admin Dose 650 MG; Start 11/03/18 at 12:00 Acetaminophen/ Hydrocodone Bitart ([place] (5/325)) 1 tab Q6H PRN PO .MOD PAIN 4- 6 Last administered on 11/14/18 14:12; Admin Dose 1 TAB; Start 11/03/18 at 12:00 Docusate Sodium (Colace) 100 mg Q12H PRN PO .CONSTIPATION; Start 11/03/18 at 12:00 Magnesium Hydroxide (Milk Of Mag) 30 ml DAILY PRN PO .CONSTIPATION Last admini stered on 11/07/18at 17:47; Admin Dose 30 ML; Start 11/03/18 at 12:00 Albuterol/ Ipratropium (Duoneb) 3 ml Q4H RESP THERAPY PRN HHN SHORTNESS OF BREATH Last administered on 11/06/18 05:07; Admin Dose 3 ML; Start 11/03/18 at 12:00 Hydralazine HCl (Apresoline) 10 mg Q6H PRN IV ELEVATED BLOOD PRESSURE; Start 11/03/18 at 12:00 Nitroglycerin (Nitroglycerin (Sl Tab) 0.4 Mg) 1 tab Q5M PRN SL ANGINA; Start 11/03/18 at 12:00 Aspirin (Ecotrin) 325 mg DAILY PO Last administered on 11/16/18 08:34; Admin Dose 325 MG; Start 11/04/18 at 09:00 Ascorbic Acid (Vitamin C) 500 mg DAILY GTB Last administered on 11/16/18 08:35; Admin Dose 500 MG; Start 11/04/18 at 09:00 Atorvastatin Calcium (Lipitor) 80 mg QHS GTB Last administered on 11/15/18 21:56; Admin Dose 80 MG; Start 11/03/18 at 21:00 Bisacodyl (Dulcolax Supp) 10 mg DAILY PRN [place] CONSTIPATION; Start 11/03/18 at 12:00 Chlorhexidine Gluconate (Peridex) 15 ml Q12H MM Last administered on 11/16/18 12:53; Admin Dose 15 ML; Start 11/03/18 at 12:00 Clonidine (Catapres) 0.2 mg Q8H PRN GTB SBP ABOVE 160; Start 11/03/18 at 12:00 Valproate Sodium (Depakene Liquid Cup) 500 mg BID GTB Last administered on 11/16/18 08:33; Admin Dose 500 MG; Start 11/03/18 at 21:00 Zinc Sulfate (Zinc Sulfate) 220 mg DAILY GTB Last administered on 11/16/18 08:34; Admin Dose 220 MG; Start 11/04/18 at 09:00 Lactobacillus Acidophilus/ Rhamnosus (Culturelle) 1 cap DAILY PO Last administered on 11/16/18 08:35; Admin Dose 1 CAP; Start 11/04/18 at 09:00 Multivitamins/ Minerals (Theragran-M) 1 tab DAILY PO Last administered on 11/16/18 08:35; Admin Dose 1 TAB; Start 11/04/18 at 09:00 Metoprolol Tartrate (Lopressor) 25 mg BID PO Last administered on 11/16/18 08:36; Admin Dose 25 MG; Start 11/03/18 at 21:00 Gabapentin (Neurontin) 600 mg BID GTB Last administered on 11/16/18 08:34; Admin Dose 600 MG; Start 11/04/18 at 12:00 Risperidone (Risperdal) 2 mg DAILY GTB Last administered on 11/16/18 08:35; Admin Dose 2 MG; Start 11/04/18 at 14:00 Mupirocin (Bactroban) 1 applic BID TOP Last administered on 11/16/18 12:54; Admin Dose 1 APPLIC; Start 11/05/18 at 12:00 Quetiapine Fumarate (Seroquel) 12.5 mg Q8 PRN GTB AGITATION Last administered on 11/16/18 00:13; Admin Dose 12.5 MG; Start 11/06/18 at 11:00 Diphenhydramine HCl (Benadryl) 25 mg Q6H PRN IV ITCHING Last administered on 11/15/18 19:55; Admin Dose 25 MG; Start 11/06/18 at 18:00 Famotidine (Pepcid) 20 mg BID GTB Last administered on 11/16/18 08:35; Admin Dose 20 MG; Start 11/07/18 at 09:00 Cefepime HCl 50 ml @ 100 mls/hr Q12 IVPB Last administered on 11/16/18 08:33; Admin Dose 100 MLS/HR; Start 11/12/18 at 14:00 Lorazepam (Ativan) 1 mg Q6H PRN IV AGITATION Last administered on 11/15/18 20:2 0; Admin Dose 1 MG; Start 11/15/18 at 20:06 AIMEE BRADSHAW NP Nov 16, 2018 16:16
[2018-11-16] MEDS: LORAZEPAM 2 MG INJ IV PRN (17:11)
--- NOTE | 2018-11-16 19:16 | CONS ---
Consult Date/Type/Reason Admit Date/Time November 03, 2018 at 10:30 Initial Consult Date 11/14/18 Type of Consultation: Urology Reason for Consultation Hematuria Requesting Provider: BRANDT RAMÍREZ Date/Time of Note DATE: 11/16/18 TIME: 19:13 Subjective Patient is confused, tries to get out of bed and had to be restrained for safety. Objective Vitals Vital Signs Date Temp Pulse Resp B/P (MAP) Pulse Ox O2 O2 Flow FiO2 Time Delivery Rate 11/16/18 98.5 89 20 161/92 97 Trach 18:00 (115) Collar 11/16/18 5.0 28 16:34 Intake and Output 11/15/18 11/15/18 11/16/18 1515:00 23:00 07:00 IntakeIntake Total 950 ml 460 ml OutputOutput Total 3250 ml 850 ml BalanceBalance -2300 ml -390 ml Exam The Higgins catheter is draining well. The bladder irrigation was still on and the return is clear. Results/Medications Result Diagram: 11/16/18 0554 11/16/18 0554 Results 24 hrs Laboratory Tests Test 11/16/18 05:54 White Blood Count 8.4 Red Blood Count 4.17 L Hemoglobin 12.9 L Hematocrit 38.9 L Mean Corpuscular Volume 93.3 Mean Corpuscular Hemoglobin 30.9 Mean Corpuscular Hemoglobin Concent 33.2 Red Cell Distribution Width 13.0 Platelet Count 229 Mean Platelet Volume 9.7 Immature Granulocytes % 0.700 H Neutrophils % 53.6 Lymphocytes % 25.7 Monocytes % 11.7 H Eosinophils % 7.3 H Basophils % 1.0 Nucleated Red Blood Cells % 0.0 Immature Granulocytes # 0.060 H Neutrophils # 4.5 Lymphocytes # 2.2 Monocytes # 1.0 H Eosinophils # 0.6 H Basophils # 0.1 Nucleated Red Blood Cells # 0.0 Sodium Level 144 Potassium Level 3.9 Chloride Level 104 Carbon Dioxide Level 31 Anion Gap 9 Blood Urea Nitrogen 9 Creatinine 0.70 Est Glomerular Filtrat Rate mL/min > 60 Glucose Level 93 Calcium Level 9.2 Home Meds Active Scripts Metoprolol Tartrate* (Lopressor*) 25 Mg Tab, 25 MG PO BID, #60 TAB Prov:NICOLE LAN INDEPENDENT DRIVER 11/16/18 Reported Medications Zinc Sulfate* (Zinc Sulfate*) 220 Mg Tablet, 220 MG GTB DAILY, TAB STOP TAKING 11/21/18 11/03/18 Ascorbic Acid* (Vitamin C*) 500 Mg Capsule.sa, 500 MG GTB DAILY, CAP 11/03/18 Valproic Acid* (Valproic Acid* Liq) 250 Mg/5 Ml Syrup, 10 ML GTB BID, ML 11/03/18 Acetaminophen* (Tylenol*) 325 Mg Tablet, 650 MG GTB Q4H PRN for MILD PAIN LEVEL 1-3, TAB AND FEVER 101F,STOP DATE 12/21/18 11/03/18 Risperidone* (Risperdal*) 1 Mg Tablet, 2 MG GTB DAILY, TAB STOP DATE 11/05/18 11/03/18 Hydrocodone/Acetaminophen ([place] 5-325 Tablet) 1 Each Tablet, 1 EACH GTB Q6H PRN for PAIN -02/21, TAB 11/03/18 Multivitamin with Minerals (Multivitamins with Minerals) 1 Each Tablet, 1 EACH GTB DAILY, TAB 11/03/18 Magnesium Hydroxide* (Milk Of Magnesia*) 400 Mg/5 Ml Oral.susp, 30 ML GTB NEEDED, ML 11/03/18 Gabapentin* (Gabapentin*) 300 Mg Capsule, 600 MG GTB BID, #180 CAP 11/03/18 Bisacodyl (Dulcolax) 10 Mg Supp.rect, 10 MG RC PRN, SUPP.RECT 11/03/18 Docusate Sodium* (Colace*) 100 Mg Capsule, 200 MG GTB QHS, #60 CAP 11/03/18 Clonidine Hcl* (Clonidine Hcl*) 0.1 Mg Tab, 0.2 MG GTB Q8H PRN for HTN, TAB HOLD FOR SBPBELOW 110 OR HR BELOW 60 11/03/18 Chlorhexidine Gluconate (Periogard) 473 Ml Mouthwash, 15 ML MM Q12H, BOTTLE 11/03/18 Atorvastatin* (Atorvastatin*) 40 Mg Tablet, 80 MG GTB QHS, #30 TAB 11/03/18 Albuterol Sulfate* (Albuterol Sulfate* Neb) 0.083%-3 Ml Neb, 2.5 MG NEB Q6H PRN for WHEEZING AND SOB, #30 VIAL AND NEEDED Q3H 11/03/18 Lactobacillus Acidophilus/Pect (Acidophilus-Pectin Capsule) 1 Each Capsule, 1 EACH GTB DAILY, CAP 11/03/18 Discontinued Reported Medications Cran/Vitc/Mannose/Inulin/Brom (Uti-Stat Liquid) 3,875 Mg/30 Ml Liquid, 30 ML GTB DAILY 11/03/18 Acetaminophen* (Acetaminophen*) 500 MG Extra Strength Tablet, 1000 MG GTB Q4H PRN for PAIN 4-11/21, TAB 11/03/18 Acetaminophen* (Tylenol*) 325 Mg Tablet, 650 MG GTB BID PRN for PAIN AND OR ELEVATED TEMP, TAB 11/03/18 Acetaminophen* (Tylenol*) 325 Mg Tablet, 650 MG GTB NEEDED PRN for TRACH TUBE CHANGE, TAB 11/03/18 Amino Acids/Protein Hydrolys (PRO-STAT LIQUID) 30 Ml Liquid.pkt, 30 ML GTB BID 11/03/18 Heparin Sodium,Porcine/Pf (HEPARIN SOD 5,000 UNIT/ 0.5 ML) 5,000 Unit/0.5 Ml Vial, 5000 UNIT IJ Q12H, VIAL 11/03/18 Mineral Oil* (Fleet* Mineral Oil Enema) Unknown Strength Oil, 1 APPLIC [place] NEEDED PRN for CONSTIPATION, ENEMA 11/03/18 Medications Current Medications Naloxone HCl (Narcan) 1 mg Q2M PRN IV LETHARGY Last administered on 11/03/18at 07:19; Admin Dose 1 MG; Start 11/03/18 at 07:00 IV Flush (NS 3 ml) 3 ml PER PROTOCOL IV ; Start 11/03/18 at 12:00 Ondansetron HCl (Zofran Inj) 4 mg Q6H PRN IV NAUSEA/VOMITING Last administered on 11/07/18at 17:46; Admin Dose 4 MG; Start 11/03/18 at 12:00 Acetaminophen (Tylenol Tab) 650 mg Q6H PRN PO .PAIN 1-3 OR TEMP Last administered on 11/12/18at 08:45; Admin Dose 650 MG; Start 11/03/18 at 12:00 Acetaminophen/ Hydrocodone Bitart ([place] (5/325)) 1 tab Q6H PRN PO .MOD PAIN 4- 6 Last administered on 11/14/18at 14:12; Admin Dose 1 TAB; Start 11/03/18 at 12:00 Docusate Sodium (Colace) 100 mg Q12H PRN PO .CONSTIPATION; Start 11/03/18 at 1 2:00 Magnesium Hydroxide (Milk Of Mag) 30 ml DAILY PRN PO .CONSTIPATION Last administered on 11/07/18 17:47; Admin Dose 30 ML; Start 11/03/18 at 12:00 Albuterol/ Ipratropium (Duoneb) 3 ml Q4H RESP THERAPY PRN HHN SHORTNESS OF BREATH Last administered on 11/06/18 05:07; Admin Dose 3 ML; Start 11/03/18 at 12:00 Hydralazine HCl (Apresoline) 10 mg Q6H PRN IV ELEVATED BLOOD PRESSURE; Start 11/03/18 at 12:00 Nitroglycerin (Nitroglycerin (Sl Tab) 0.4 Mg) 1 tab Q5M PRN SL ANGINA; Start 11/03/18 at 12:00 Aspirin (Ecotrin) 325 mg DAILY PO Last administered on 11/16/18 08:34; Admin Dose 325 MG; Start 11/04/18 at 09:00 Ascorbic Acid (Vitamin C) 500 mg DAILY GTB Last administered on 11/16/18 08:35; Admin Dose 500 MG; Start 11/04/18 at 09:00 Atorvastatin Calcium (Lipitor) 80 mg QHS GTB Last administered on 11/15/18 21:56; Admin Dose 80 MG; Start 11/03/18 at 21:00 Bisacodyl (Dulcolax Supp) 10 mg DAILY PRN [place] CONSTIPATION; Start 11/03/18 at 12:00 Chlorhexidine Gluconate (Peridex) 15 ml Q12H MM Last administered on 11/16/18 12:53; Admin Dose 15 ML; Start 11/03/18 at 12:00 Clonidine (Catapres) 0.2 mg Q8H PRN GTB SBP ABOVE 160; Start 11/03/18 at 12:00 Valproate Sodium (Depakene Liquid Cup) 500 mg BID GTB Last administered on 11/16/18 08:33; Admin Dose 500 MG; Start 11/03/18 at 21:00 Zinc Sulfate (Zinc Sulfate) 220 mg DAILY GTB Last administered on 11/16/18 08:34; Admin Dose 220 MG; Start 11/04/18 at 09:00 Lactobacillus Acidophilus/ Rhamnosus (Culturelle) 1 cap DAILY PO Last admin istered on 11/16/18 08:35; Admin Dose 1 CAP; Start 11/04/18 at 09:00 Multivitamins/ Minerals (Theragran-M) 1 tab DAILY PO Last administered on 11/16/18 08:35; Admin Dose 1 TAB; Start 11/04/18 at 09:00 Metoprolol Tartrate (Lopressor) 25 mg BID PO Last administered on 11/16/18 08:36; Admin Dose 25 MG; Start 11/03/18 at 21:00 Gabapentin (Neurontin) 600 mg BID GTB Last administered on 11/16/18 08:34; Admin Dose 600 MG; Start 11/04/18 at 12:00 Risperidone (Risperdal) 2 mg DAILY GTB Last administered on 11/16/18 08:35; Admin Dose 2 MG; Start 11/04/18 at 14:00 Mupirocin (Bactroban) 1 applic BID TOP Last administered on 11/16/18 12:54; Admin Dose 1 APPLIC; Start 11/05/18 at 12:00 Quetiapine Fumarate (Seroquel) 12.5 mg Q8 PRN GTB AGITATION Last administered on 11/16/18 00:13; Admin Dose 12.5 MG; Start 11/06/18 at 11:00 Diphenhydramine HCl (Benadryl) 25 mg Q6H PRN IV ITCHING Last administered on 11/15/18 19:55; Admin Dose 25 MG; Start 11/06/18 at 18:00 Famotidine (Pepcid) 20 mg BID GTB Last administered on 11/16/18 08:35; Admin Dose 20 MG; Start 11/07/18 at 09:00 Lorazepam (Ativan) 1 mg Q6H PRN IV AGITATION Last administered on 11/16/18 17:11; Admin Dose 1 MG; Start 11/15/18 at 20:06 Assessment/Plan Hospital Course (Demo Recall) 43-year-old male with history of subarachnoid hemorrhage with subsequent [employer]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 Patient was evaluated and was found to have had an episode of apnea and altered mental status, he also was found to have elevated troponin and renal insufficiency. He is known to have a history of hypertension and high cholesterol. He has a tracheostomy and G-tube and an indwelling Higgins catheter. He was noted to have gross hematuria and that has not cleared even though the patient was treated with antibiotic and is well hydrated. Presently he does have a three-way Higgins catheter 20 [place] and is on continuous bladder irrigation. The return from the irrigation is clear. Since the return is clear we will stop the continuous bladder irrigation and plug the port of the irrigation was a catheter plug and then the patient may be discharged in a.m. He tends to be confused and some time he tries to pull to the IV and probably he may even have tried to pull on the Higgins catheter before to cause a hematuria. EDWIN HOGAN MD Nov 16, 2018 19:16
--- NOTE | 2018-11-16 20:04 | PN ---
Date/Time of Note Date/Time of Note DATE: 11/16/18 TIME: 20:01 Assessment/Plan VTE Prophylaxis Risk score (from Ns)>0 risk: 3 SCD applied (from [facility] [place]): Yes Pharmacological prophylaxis: NA/contraindicated Pharm contraindication: bleeding Lines/Catheters IV Catheter Type (from [facility]): Peripheral IV Urinary Cath still in place: Yes Reason Cath still needed: other (indicate) (monitor I&O) Assessment/Plan Hospital Course 1. Embolic stroke - brain MRI: showing infarct - Per neurology team, hold off on benzos, continue Seroquel as needed, con tinue aspirin. 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 pain and fevers. - feedings per ST 2. Hematuria - Hematuria - hold lovenox for now - Suspect from pulled ly catheter. Restrains prn - ly catheter was replaced. - continue bladder irrigation per urologist 3. Elevated troponins - - signs of non-ST elevation myocardial infarction. - cardiology following - Continue high dose aspirin and Lipitor, Morphine p.r.n., nitroglycerin p.r.n. 4. Renal insufficiency- improved - Monitor renal panel 5. History of hypertension. - Continue to monitor for now. He is on hydralazine p.r.n. 6. History of high cholesterol. - Continue Lipitor. 7. Tracheostomy placement - continue respiratory care 8. Deep venous thrombosis prophylaxis 9. History of gastroesophageal reflux disease -- H2 kendall. DISPO/;PLAN: Bladder irrigation stopped. Monitor ly catheter. plan to d/c in AM if stable Discussed POC with Dr. Hernandez Result Diagram: 11/16/18 0554 11/16/18 0554 Results 24hrs Laboratory Tests Test 11/16/18 05:54 White Blood Count 8.4 Red Blood Count 4.17 L Hemoglobin 12.9 L Hematocrit 38.9 L Mean Corpuscular Volume 93.3 Mean Corpuscular Hemoglobin 30.9 Mean Corpuscular Hemoglobin Concent 33.2 Red Cell Distribution Width 13.0 Platelet Count 229 Mean Platelet Volume 9.7 Immature Granulocytes % 0.700 H Neutrophils % 53.6 Lymphocytes % 25.7 Monocytes % 11.7 H Eosinophils % 7.3 H Basophils % 1.0 Nucleated Red Blood Cells % 0.0 Immature Granulocytes # 0.060 H Neutrophils # 4.5 Lymphocytes # 2.2 Monocytes # 1.0 H Eosinophils # 0.6 H Basophils # 0.1 Nucleated Red Blood Cells # 0.0 Sodium Level 144 Potassium Level 3.9 Chloride Level 104 Carbon Dioxide Level 31 Anion Gap 9 Blood Urea Nitrogen 9 Creatinine 0.70 Est Glomerular Filtrat Rate mL/min > 60 Glucose Level 93 Calcium Level 9.2 Subjective 24 Hr Interval Summary Free Text/Dictation confused at times. no s/s of distress. Exam/Review of Systems Exam Vitals Vital Signs Date Temp Pulse Resp B/P (MAP) Pulse Ox O2 O2 Flow FiO2 Time Delivery Rate 11/16/18 98.5 89 20 161/92 97 Trach 18:00 (115) Collar 11/16/18 5.0 28 16:34 Intake and Output 11/15/18 11/15/18 11/16/18 1515:00 23:00 07:00 IntakeIntake Total 950 ml 460 ml OutputOutput Total 3250 ml 850 ml BalanceBalance -2300 ml -390 ml Exam Constitutional: alert, oriented (alert to person) Neck: other (trach in place) Respiratory: other (no obvious wheezing/rhonchi) Gastrointestinal: other (peg tube in place) Genitourinary - Male: other (ly catheter with pinkish urine) Extremities: No edema Results Results 24hrs Laboratory Tests Test 11/16/18 05:54 White Blood Count 8.4 Red Blood Count 4.17 L Hemoglobin 12.9 L Hematocrit 38.9 L Mean Corpuscular Volume 93.3 Mean Corpuscular Hemoglobin 30.9 Mean Corpuscular Hemoglobin Concent 33.2 Red Cell Distribution Width 13.0 Platelet Count 229 Mean Platelet Volume 9.7 Immature Granulocytes % 0.700 H Neutrophils % 53.6 Lymphocytes % 25.7 Monocytes % 11.7 H Eosinophils % 7.3 H Basophils % 1.0 Nucleated Red Blood Cells % 0.0 Immature Granulocytes # 0.060 H Neutrophils # 4.5 Lymphocytes # 2.2 Monocytes # 1.0 H Eosinophils # 0.6 H Basophils # 0.1 Nucleated Red Blood Cells # 0.0 Sodium Level 144 Potassium Level 3.9 Chloride Level 104 Carbon Dioxide Level 31 Anion Gap 9 Blood Urea Nitrogen 9 Creatinine 0.70 Est Glomerular Filtrat Rate mL/min > 60 Glucose Level 93 Calcium Level 9.2 Medications Medication Current Medications Naloxone HCl (Narcan) 1 mg Q2M PRN IV LETHARGY Last administered on 11/03/18 07:19; Admin Dose 1 MG; Start 11/03/18 at 07:00 IV Flush (NS 3 ml) 3 ml PER PROTOCOL IV ; Start 11/03/18 at 12:00 Ondansetron HCl (Zofran Inj) 4 mg Q6H PRN IV NAUSEA/VOMITING Last administered on 11/07/18 17:46; Admin Dose 4 MG; Start 11/03/18 at 12:00 Acetaminophen (Tylenol Tab) 650 mg Q6H PRN PO .PAIN 1-3 OR TEMP Last administered on 11/12/18 08:45; Admin Dose 650 MG; Start 11/03/18 at 12:00 Acetaminophen/ Hydrocodone Bitart ([place] (5/325)) 1 tab Q6H PRN PO .MOD PAIN 4- 6 Last administered on 11/14/18 14:12; Admin Dose 1 TAB; Start 11/03/18 at 12:00 Docusate Sodium (Colace) 100 mg Q12H PRN PO .CONSTIPATION; Start 11/03/18 at 12:00 Magnesium Hydroxide (Milk Of Mag) 30 ml DAILY PRN PO .CONSTIPATION Last administered on 11/07/18 17:47; Admin Dose 30 ML; Start 11/03/18 at 12:00 Albuterol/ Ipratropium (Duoneb) 3 ml Q4H RESP THERAPY PRN HHN SHORTNESS OF BREATH Last administered on 11/06/18 05:07; Admin Dose 3 ML; Start 11/03/18 at 12:00 Hydralazine HCl (Apresoline) 10 mg Q6H PRN IV ELEVATED BLOOD PRESSURE; Start 11/03/18 at 12:00 Nitroglycerin (Nitroglycerin (Sl Tab) 0.4 Mg) 1 tab Q5M PRN SL ANGINA; Start 11/03/18 at 12:00 Aspirin (Ecotrin) 325 mg DAILY PO Last administered on 11/16/18 08:34; Admin Dose 325 MG; Start 11/04/18 at 09:00 Ascorbic Acid (Vitamin C) 500 mg DAILY GTB Last administered on 11/16/18 08:35; Admin Dose 500 MG; Start 11/04/18 at 09:00 Atorvastatin Calcium (Lipitor) 80 mg QHS GTB Last administered on 11/15/18 21:56; Admin Dose 80 MG; Start 11/03/18 at 21:00 Bisacodyl (Dulcolax Supp) 10 mg DAILY PRN [place] CONSTIPATION; Start 11/03/18 at 12 :00 Chlorhexidine Gluconate (Peridex) 15 ml Q12H MM Last administered on 11/16/18 12:53; Admin Dose 15 ML; Start 11/03/18 at 12:00 Clonidine (Catapres) 0.2 mg Q8H PRN GTB SBP ABOVE 160; Start 11/03/18 at 12:00 Valproate Sodium (Depakene Liquid Cup) 500 mg BID GTB Last administered on 11/16/18 08:33; Admin Dose 500 MG; Start 11/03/18 at 21:00 Zinc Sulfate (Zinc Sulfate) 220 mg DAILY GTB Last administered on 11/16/18 08:34; Admin Dose 220 MG; Start 11/04/18 at 09:00 Lactobacillus Acidophilus/ Rhamnosus (Culturelle) 1 cap DAILY PO Last administered on 11/16/18 08:35; Admin Dose 1 CAP; Start 11/04/18 at 09:00 Multivitamins/ Minerals (Theragran-M) 1 tab DAILY PO Last administered on 11/16/18 08:35; Admin Dose 1 TAB; Start 11/04/18 at 09:00 Metoprolol Tartrate (Lopressor) 25 mg BID PO Last administered on 11/16/18 08:36; Admin Dose 25 MG; Start 11/03/18 at 21:00 Gabapentin (Neurontin) 600 mg BID GTB Last administered on 11/16/18 08:34; Admin Dose 600 MG; Start 11/04/18 at 12:00 Risperidone (Risperdal) 2 mg DAILY GTB Last administered on 11/16/18 08:35; Admin Dose 2 MG; Start 11/04/18 at 14:00 Mupirocin (Bactroban) 1 applic BID TOP Last administered on 11/16/18 12:54; Admin Dose 1 APPLIC; Start 11/05/18 at 12:00 Quetiapine Fumarate (Seroquel) 12.5 mg Q8 PRN GTB AGITATION Last administered on 11/16/18 00:13; Admin Dose 12.5 MG; Start 11/06/18 at 11:00 Diphenhydramine HCl (Benadryl) 25 mg Q6H PRN IV ITCHING Last administered on 11/15/18at 19:55; Admin Dose 25 MG; Start 11/06/18 at 18:00 Famotidine (Pepcid) 20 mg BID GTB Last administered on 11/16/18 08:35; Admin Dose 20 MG; Start 11/07/18 at 09:00 Lorazepam (Ativan) 1 mg Q6H PRN IV AGITATION Last administered on 11/16/18 17:11; Admin Dose 1 MG; Start 11/15/18 at 20:06 NICOLE LAN NP Nov 16, 2018 20:04
[2018-11-16] MEDS: ATORVASTATIN 40 MG TAB GTB SCH (21:38)
[2018-11-17] VITALS (16 sets, daily range): BP systolic 92–165; BP diastolic 57–95; PULSE 54–97; RESP 18–60
--- NOTE | 2018-11-17 07:51 | CONS ---
Consult Date/Type/Reason Admit Date/Time November 03, 2018 at 10:30 Initial Consult Date 11/14/18 Type of Consultation: Urology Reason for Consultation Hematuria Requesting Provider: BRANDT RAMÍREZ Date/Time of Note DATE: 11/17/18 TIME: 07:48 Subjective Patient at times is restless and may be pulling on the Higgins catheter Objective Vitals Vital Signs Date Temp Pulse Resp B/P (MAP) Pulse Ox O2 O2 Flow FiO2 Time Delivery Rate 11/17/18 98.4 66 18 133/76 95 06:00 (95) 11/17/18 5.0 28 04:10 11/16/18 Trach 18:00 Collar Intake and Output 11/16/18 11/16/18 11/17/18 1515:00 23:00 07:00 IntakeIntake Total 830 ml 1350 ml 500 ml OutputOutput Total 700 ml 700 ml 1000 ml BalanceBalance 130 ml 650 ml -500 ml Exam Higgins catheter is draining clear urine Results/Medications Result Diagram: 11/17/18 0655 11/16/18 0554 Results 24 hrs Laboratory Tests Test 11/17/18 06:55 White Blood Count 7.6 Red Blood Count 4.14 L Hemoglobin 13.0 L Hematocrit 39.5 L Mean Corpuscular Volume 95.4 Mean Corpuscular Hemoglobin 31.4 Mean Corpuscular Hemoglobin Concent 32.9 Red Cell Distribution Width 12.8 Platelet Count 232 Mean Platelet Volume 9.8 Immature Granulocytes % 0.500 H Neutrophils % 57.2 Lymphocytes % 25.9 Monocytes % 8.5 Eosinophils % 6.8 Basophils % 1.1 Nucleated Red Blood Cells % 0.0 Immature Granulocytes # 0.040 H Neutrophils # 4.4 Lymphocytes # 2.0 Monocytes # 0.7 Eosinophils # 0.5 Basophils # 0.1 Nucleated Red Blood Cells # 0.0 Home Meds Active Scripts Metoprolol Tartrate* (Lopressor*) 25 Mg Tab, 25 MG PO BID, #60 TAB Prov:NICOLE LAN TECHNICIAN ANATOMIC PATHOLOGY 11/16/18 Reported Medications Zinc Sulfate* (Zinc Sulfate*) 220 Mg Tablet, 220 MG GTB DAILY, TAB STOP TAKING 11/21/18 11/03/18 Ascorbic Acid* (Vitamin C*) 500 Mg Capsule.sa, 500 MG GTB DAILY, CAP 11/03/18 Valproic Acid* (Valproic Acid* Liq) 250 Mg/5 Ml Syrup, 10 ML GTB BID, ML 11/03/18 Acetaminophen* (Tylenol*) 325 Mg Tablet, 650 MG GTB Q4H PRN for MILD PAIN LEVEL 1-3, TAB AND FEVER 101F,STOP DATE 12/21/18 11/03/18 Risperidone* (Risperdal*) 1 Mg Tablet, 2 MG GTB DAILY, TAB STOP DATE 11/05/18 11/03/18 Hydrocodone/Acetaminophen ([place] 5-325 Tablet) 1 Each Tablet, 1 EACH GTB Q6H PRN for PAIN -02/21, TAB 11/03/18 Multivitamin with Minerals (Multivitamins with Minerals) 1 Each Tablet, 1 EACH GTB DAILY, TAB 11/03/18 Magnesium Hydroxide* (Milk Of Magnesia*) 400 Mg/5 Ml Oral.susp, 30 ML GTB NEEDED, ML 11/03/18 Gabapentin* (Gabapentin*) 300 Mg Capsule, 600 MG GTB BID, #180 CAP 11/03/18 Bisacodyl (Dulcolax) 10 Mg Supp.rect, 10 MG RC PRN, SUPP.RECT 11/03/18 Docusate Sodium* (Colace*) 100 Mg Capsule, 200 MG GTB QHS, #60 CAP 11/03/18 Clonidine Hcl* (Clonidine Hcl*) 0.1 Mg Tab, 0.2 MG GTB Q8H PRN for HTN, TAB HOLD FOR SBPBELOW 110 OR HR BELOW 60 11/03/18 Chlorhexidine Gluconate (Periogard) 473 Ml Mouthwash, 15 ML MM Q12H, BOTTLE 11/03/18 Atorvastatin* (Atorvastatin*) 40 Mg Tablet, 80 MG GTB QHS, #30 TAB 11/03/18 Albuterol Sulfate* (Albuterol Sulfate* Neb) 0.083%-3 Ml Neb, 2.5 MG NEB Q6H PRN for WHEEZING AND SOB, #30 VIAL AND NEEDED Q3H 11/03/18 Lactobacillus Acidophilus/Pect (Acidophilus-Pectin Capsule) 1 Each Capsule, 1 EACH GTB DAILY, CAP 11/03/18 Discontinued Reported Medications Cran/Vitc/Mannose/Inulin/Brom (Uti-Stat Liquid) 3,875 Mg/30 Ml Liquid, 30 ML GTB DAILY 11/03/18 Acetaminophen* (Acetaminophen*) 500 MG Extra Strength Tablet, 1000 MG GTB Q4H PRN for PAIN 4-11/21, TAB 11/03/18 Acetaminophen* (Tylenol*) 325 Mg Tablet, 650 MG GTB BID PRN for PAIN AND OR ELEVATED TEMP, TAB 11/03/18 Acetaminophen* (Tylenol*) 325 Mg Tablet, 650 MG GTB NEEDED PRN for TRACH TUBE CHANGE, TAB 11/03/18 Amino Acids/Protein Hydrolys (PRO-STAT LIQUID) 30 Ml Liquid.pkt, 30 ML GTB BID 11/03/18 Heparin Sodium,Porcine/Pf (HEPARIN SOD 5,000 UNIT/ 0.5 ML) 5,000 Unit/0.5 Ml Vial, 5000 UNIT IJ Q12H, VIAL 11/03/18 Mineral Oil* (Fleet* Mineral Oil Enema) Unknown Strength Oil, 1 APPLIC IN NEEDED PRN for CONSTIPATION, ENEMA 11/03/18 Medications Current Medications Naloxone HCl (Narcan) 1 mg Q2M PRN IV LETHARGY Last administered on 11/03/18at 07:19; Admin Dose 1 MG; Start 11/03/18 at 07:00 IV Flush (NS 3 ml) 3 ml PER PROTOCOL IV ; Start 11/03/18 at 12:00 Ondansetron HCl (Zofran Inj) 4 mg Q6H PRN IV NAUSEA/VOMITING Last administered on 11/07/18at 17:46; Admin Dose 4 MG; Start 11/03/18 at 12:00 Acetaminophen (Tylenol Tab) 650 mg Q6H PRN PO .PAIN 1-3 OR TEMP Last administered on 11/12/18at 08:45; Admin Dose 650 MG; Start 11/03/18 at 12:00 Acetaminophen/ Hydrocodone Bitart ([place] (5/325)) 1 tab Q6H PRN PO .MOD PAIN 4- 6 Last administered on 11/14/18at 14:12; Admin Dose 1 TAB; Start 11/03/18 at 12:00 Docusate Sodium (Colace) 100 mg Q12H PRN PO .CONSTIPATION; Start 11/03/18 at 12:00 Magnesium Hydroxide (Milk Of Mag) 30 ml DAILY PRN PO .CONSTIPATION Last admini stered on 11/07/18at 17:47; Admin Dose 30 ML; Start 11/03/18 at 12:00 Albuterol/ Ipratropium (Duoneb) 3 ml Q4H RESP THERAPY PRN HHN SHORTNESS OF BREATH Last administered on 11/06/18 05:07; Admin Dose 3 ML; Start 11/03/18 at 12:00 Hydralazine HCl (Apresoline) 10 mg Q6H PRN IV ELEVATED BLOOD PRESSURE; Start 11/03/18 at 12:00 Nitroglycerin (Nitroglycerin (Sl Tab) 0.4 Mg) 1 tab Q5M PRN SL ANGINA; Start 11/03/18 at 12:00 Aspirin (Ecotrin) 325 mg DAILY PO Last administered on 11/16/18 08:34; Admin Dose 325 MG; Start 11/04/18 at 09:00 Ascorbic Acid (Vitamin C) 500 mg DAILY GTB Last administered on 11/16/18 08:35; Admin Dose 500 MG; Start 11/04/18 at 09:00 Atorvastatin Calcium (Lipitor) 80 mg QHS GTB Last administered on 11/16/18 21:38; Admin Dose 80 MG; Start 11/03/18 at 21:00 Bisacodyl (Dulcolax Supp) 10 mg DAILY PRN IN CONSTIPATION; Start 11/03/18 at 12:00 Chlorhexidine Gluconate (Peridex) 15 ml Q12H MM Last administered on 11/16/18 23:39; Admin Dose 15 ML; Start 11/03/18 at 12:00 Clonidine (Catapres) 0.2 mg Q8H PRN GTB SBP ABOVE 160; Start 11/03/18 at 12:00 Valproate Sodium (Depakene Liquid Cup) 500 mg BID GTB Last administered on 11/16/18 21:38; Admin Dose 500 MG; Start 11/03/18 at 21:00 Zinc Sulfate (Zinc Sulfate) 220 mg DAILY GTB Last administered on 11/16/18 08:34; Admin Dose 220 MG; Start 11/04/18 at 09:00 Lactobacillus Acidophilus/ Rhamnosus (Culturelle) 1 cap DAILY PO Last administered on 11/16/18 08:35; Admin Dose 1 CAP; Start 11/04/18 at 09:00 Multivitamins/ Minerals (Theragran-M) 1 tab DAILY PO Last administered on 11/16/18 08:35; Admin Dose 1 TAB; Start 11/04/18 at 09:00 Metoprolol Tartrate (Lopressor) 25 mg BID PO Last administered on 11/16/18 21:39; Admin Dose 25 MG; Start 11/03/18 at 21:00 Gabapentin (Neurontin) 600 mg BID GTB Last administered on 11/16/18 21:38; Admin Dose 600 MG; Start 11/04/18 at 12:00 Risperidone (Risperdal) 2 mg DAILY GTB Last administered on 11/16/18 08:35; Admin Dose 2 MG; Start 11/04/18 at 14:00 Mupirocin (Bactroban) 1 applic BID TOP Last administered on 11/16/18 21:39; Admin Dose 1 APPLIC; Start 11/05/18 at 12:00 Quetiapine Fumarate (Seroquel) 12.5 mg Q8 PRN GTB AGITATION Last administered on 11/16/18 00:13; Admin Dose 12.5 MG; Start 11/06/18 at 11:00 Diphenhydramine HCl (Benadryl) 25 mg Q6H PRN IV ITCHING Last administered on 11/15/18 19:55; Admin Dose 25 MG; Start 11/06/18 at 18:00 Famotidine (Pepcid) 20 mg BID GTB Last administered on 11/16/18 21:38; Admin Dose 20 MG; Start 11/07/18 at 09:00 Lorazepam (Ativan) 1 mg Q6H PRN IV AGITATION Last administered on 11/16/18 17:11; Admin Dose 1 MG; Start 11/15/18 at 20:06 Assessment/Plan Hospital Course (Demo Recall) 43-year-old male with 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 Patient was evaluated and was found to have had an episode of apnea and altered mental status, he also was found to have elevated troponin and renal insufficiency. He is known to have a history of hypertension and high cholesterol. He has a tracheostomy and G-tube and an indwelling Higgins catheter. He was noted to have gross hematuria and that has not cleared even though the patient was treated with antibiotic and is well hydrated. Patient did have a three-way Higgins catheter with continuous bladder irrigation. Once the return from the irrigation was clear the irrigation was stopped. The urine remains clear overnight. The likely reason for his hematuria is that he is restless and some time he may be pulling on the catheter. Since the urine is clear we will discontinue the Higgins catheter and see if he voids and therefore preventing any pulling on the catheter and bleeding. EDWIN HOGAN MD Nov 17, 2018 07:51
[2018-11-17] MEDS: FAMOTIDINE 20 MG TAB GTB SCH ×2 (08:41→20:25)
[2018-11-17] MEDS: ASCORBIC ACID 500 MG TAB GTB SCH (08:41)
[2018-11-17] MEDS: LACTOBACILLUS RHAMNOSUS CAP PO SCH (08:41)
[2018-11-17] MEDS: ASPIRIN (EC) 325 MG TAB PO SCH (08:41)
[2018-11-17] MEDS: ZINC SULFATE 220 MG CAP GTB SCH (08:41)
[2018-11-17] MEDS: RISPERIDONE 2 MG TAB GTB SCH (08:41)
[2018-11-17] MEDS: MULTIVITAMINS/MINERALS TAB PO SCH (08:41)
[2018-11-17] MEDS: MUPIROCIN 2% 22 GM OINT TOP SCH ×2 (08:42→20:25)
[2018-11-17] MEDS: GABAPENTIN 300 MG CAP GTB SCH ×2 (08:42→20:25)
[2018-11-17] MEDS: METOPROLOL 25 MG TAB PO SCH ×2 (08:42→20:27)
[2018-11-17] MEDS: VALPROIC ACID LIQUID CUP 250 MG/5 ML CUP GTB SCH ×2 (08:42→20:25)
--- NOTE | 2018-11-17 10:34 | CONS ---
Assessment/Plan Assessment/Plan Assessment/Plan (Daily) Assessment and recommendations; 1. Patient admitted for hematuria due to UTI with interval improvement. 2. 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 3. 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 4. Chronic dysphagia. 5. Chronic respiratory failure, patient however doing very well on [place] valve via tracheostomy. 6. Stable seizure disorder. 7. Gram-positive bacteremia. Likely contaminant. Continue current supportive care. Consider discharge to residential. Consultation Date/Type/Reason Admit Date/Time November 03, 2018 at 10:30 Initial Consult Date Type of Consult Pulmonary Patient condition is fairly stable. Remains awake and alert. Has remained h emodynamically stable. Patient having persistent hematuria. General exam; young male, on T-piece via tracheostomy, awake and responsive. Currently in no distress. Requesting Provider: BRANDT RAMÍREZ Date/Time of Note DATE: 11/17/18 TIME: 10:32 24 HR Interval Summary Free Text/Dictation Patient's condition is stable. Remains awake and alert. Able to talk. Patient has remained hemodynamically stable. General exam; young male, awake and alert. On [place] valve via tracheostomy. Currently in no distress. Exam/Review of Systems Exam Vitals Vital Signs Date Temp Pulse Resp B/P (MAP) Pulse Ox O2 O2 Flow FiO2 Time Delivery Rate 11/17/18 98.6 79 19 141/86 97 10:00 (104) 11/17/18 5.0 28 08:54 11/17/18 Aerosol 08:54 T Tube Intake and Output 11/16/18 11/16/18 11/17/18 1515:00 23:00 07:00 IntakeIntake Total 830 ml 1350 ml 500 ml OutputOutput Total 700 ml 700 ml 1000 ml BalanceBalance 130 ml 650 ml -500 ml Exam H EENT exam; supple neck, no JVD. No lymphadenopathy. Midline trachea. No thyromegaly. Patient has fair dentition. Tracheostomy in place. Insertion site is clean. Chest exam; clear to auscultation. S1-S2 audible, no murmurs. Regular rhythm. Abdomen exam; soft, nondistended. No organomegaly. G-tube in place. Bowel sounds audible. Extremity exam; peripheral edema clubbing. 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 But patient exhibiting generalized weakness. Results Result Diagram: 11/17/18 0655 11/17/18 0655 Results 24hrs Laboratory Tests Test 11/17/18 06:55 White Blood Count 7.6 Red Blood Count 4.14 L Hemoglobin 13.0 L Hematocrit 39.5 L Mean Corpuscular Volume 95.4 Mean Corpuscular Hemoglobin 31.4 Mean Corpuscular Hemoglobin Concent 32.9 Red Cell Distribution Width 12.8 Platelet Count 232 Mean Platelet Volume 9.8 Immature Granulocytes % 0.500 H Neutrophils % 57.2 Lymphocytes % 25.9 Monocytes % 8.5 Eosinophils % 6.8 Basophils % 1.1 Nucleated Red Blood Cells % 0.0 Immature Granulocytes # 0.040 H Neutrophils # 4.4 Lymphocytes # 2.0 Monocytes # 0.7 Eosinophils # 0.5 Basophils # 0.1 Nucleated Red Blood Cells # 0.0 Sodium Level 143 Potassium Level 3.6 Chloride Level 103 Carbon Dioxide Level 29 Anion Gap 11 Blood Urea Nitrogen 9 Creatinine 0.60 L Est Glomerular Filtrat Rate mL/min > 60 Glucose Level 103 Calcium Level 9.2 Medications Medication Current Medications Naloxone HCl (Narcan) 1 mg Q2M PRN IV LETHARGY Last administered on 11/03/18at 07:19; Admin Dose 1 MG; Start 11/03/18 at 07:00 IV Flush (NS 3 ml) 3 ml PER PROTOCOL IV ; Start 11/03/18 at 12:00 Ondansetron HCl (Zofran Inj) 4 mg Q6H PRN IV NAUSEA/VOMITING Last administered on 11/07/18at 17:46; Admin Dose 4 MG; Start 11/03/18 at 12:00 Acetaminophen (Tylenol Tab) 650 mg Q6H PRN PO .PAIN 1-3 OR TEMP Last administered on 11/12/18at 08:45; Admin Dose 650 MG; Start 11/03/18 at 12:00 Acetaminophen/ Hydrocodone Bitart ([place] (5/325)) 1 tab Q6H PRN PO .MOD PAIN 4- 6 Last administered on 11/14/18at 14:12; Admin Dose 1 TAB; Start 11/03/18 at 12:00 Docusate Sodium (Colace) 100 mg Q12H PRN PO .CONSTIPATION; Start 11/03/18 at 12:00 Magnesium Hydroxide (Milk Of Mag) 30 ml DAILY PRN PO .CONSTIPATION Last administered on 11/07/18 17:47; Admin Dose 30 ML; Start 11/03/18 at 12:00 Albuterol/ Ipratropium (Duoneb) 3 ml Q4H RESP THERAPY PRN HHN SHORTNESS OF BREATH Last administered on 11/06/18 05:07; Admin Dose 3 ML; Start 11/03/18 at 12:00 Hydralazine HCl (Apresoline) 10 mg Q6H PRN IV ELEVATED BLOOD PRESSURE; Start 11/03/18 at 12:00 Nitroglycerin (Nitroglycerin (Sl Tab) 0.4 Mg) 1 tab Q5M PRN SL ANGINA; Start 11/03/18 at 12:00 Aspirin (Ecotrin) 325 mg DAILY PO Last administered on 11/17/18 08:41; Admin Dose 325 MG; Start 11/04/18 at 09:00 Ascorbic Acid (Vitamin C) 500 mg DAILY GTB Last administered on 11/17/18 08:41; Admin Dose 500 MG; Start 11/04/18 at 09:00 Atorvastatin Calcium (Lipitor) 80 mg QHS GTB Last administered on 11/16/18 21:38; Admin Dose 80 MG; Start 11/03/18 at 21:00 Bisacodyl (Dulcolax Supp) 10 mg DAILY PRN NE CONSTIPATION; Start 11/03/18 at 12:00 Chlorhexidine Gluconate (Peridex) 15 ml Q12H MM Last administered on 11/16/18 23:39; Admin Dose 15 ML; Start 11/03/18 at 12:00 Clonidine (Catapres) 0.2 mg Q8H PRN GTB SBP ABOVE 160; Start 11/03/18 at 12:00 Valproate Sodium (Depakene Liquid Cup) 500 mg BID GTB Last administered on 11/17/18 08:42; Admin Dose 500 MG; Start 11/03/18 at 21:00 Zinc Sulfate (Zinc Sulfate) 220 mg DAILY GTB Last administered on 11/17/18 08:41; Admin Dose 220 MG; Start 11/04/18 at 09:00 Lactobacillus Acidophilus/ Rhamnosus (Culturelle) 1 cap DAILY PO Last administered on 11/17/18 08:41; Admin Dose 1 CAP; Start 11/04/18 at 09:00 Multivitamins/ Minerals (Theragran-M) 1 tab DAILY PO Last administered on 11/17/18 08:41; Admin Dose 1 TAB; Start 11/04/18 at 09:00 Metoprolol Tartrate (Lopressor) 25 mg BID PO Last administered on 11/17/18 08:42; Admin Dose 25 MG; Start 11/03/18 at 21:00 Gabapentin (Neurontin) 600 mg BID GTB Last administered on 11/17/18 08:42; Admin Dose 600 MG; Start 11/04/18 at 12:00 Risperidone (Risperdal) 2 mg DAILY GTB Last administered on 11/17/18 08:41; Admin Dose 2 MG; Start 11/04/18 at 14:00 Mupirocin (Bactroban) 1 applic BID TOP Last administered on 11/17/18 08:42; Admin Dose 1 APPLIC; Start 11/05/18 at 12:00 Quetiapine Fumarate (Seroquel) 12.5 mg Q8 PRN GTB AGITATION Last administered on 11/16/18 00:13; Admin Dose 12.5 MG; Start 11/06/18 at 11:00 Diphenhydramine HCl (Benadryl) 25 mg Q6H PRN IV ITCHING Last administered on 11/15/18 19:55; Admin Dose 25 MG; Start 11/06/18 at 18:00 Famotidine (Pepcid) 20 mg BID GTB Last administered on 11/17/18 08:41; Admin Dose 20 MG; Start 11/07/18 at 09:00 Lorazepam (Ativan) 1 mg Q6H PRN IV AGITATION Last administered on 11/16/18 17:11; Admin Dose 1 MG; Start 11/15/18 at 20:06 WILMAR HARRIS Nov 17, 2018 10:34
[2018-11-17] MEDS: LORAZEPAM 2 MG INJ IV PRN ×2 (12:01→17:59)
[2018-11-17] MEDS: CHLORHEXIDINE GLUCONATE 15 ML UD CUP MM SCH (12:09)
--- NOTE | 2018-11-17 12:32 | PN ---
Date/Time of Note Date/Time of Note DATE: 11/17/18 TIME: 12:28 Assessment/Plan VTE Prophylaxis Risk score (from Ns)>0 risk: 4 [place] [facility] [place] contraindicated: low risk/ambulating Pharmacological prophylaxis: NA/contraindicated Pharm contraindication: other (anemia) Lines/Catheters IV Catheter Type (from [facility] Peripheral IV Urinary Cath still in place: Yes Reason Cath still needed: other (indicate) (was dc today) Assessment/Plan Hospital Course 1. Embolic stroke - brain MRI: showing infarct - Per neurology team, hold off on benzos, continue Seroquel as needed, continue aspirin. 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 pain and fevers. - feedings per ST 2. Hematuria - Hematuria - hold lovenox for now - Suspect from pulled ly catheter. Restrains prn - ly catheter removed 11.17.18 3. Elevated troponins - - signs of non-ST elevation myocardial infarction. - cardiology following - Continue aspirin and Lipitor, Morphine p.r.n., nitroglycerin p.r.n. 4. Renal insufficiency- improved - Monitor renal panel 5. History of hypertension. - Continue to monitor for now. He is on hydralazine p.r.n. 6. History of high cholesterol. - Continue Lipitor. 7. Tracheostomy placement - continue respiratory care 8. Deep venous thrombosis prophylaxis 9. History of gastroesophageal reflux disease -- H2 kendall. DISPO/;PLAN: dc planning to snf in progress. Transfer to med/surg for now. Awaiting accepting snf Discussed POC with Dr. Hernandez Result Diagram: 11/17/18 0655 11/17/18 0655 Results 24hrs Laboratory Tests Test 11/17/18 06:55 White Blood Count 7.6 Red Blood Count 4.14 L Hemoglobin 13.0 L Hematocrit 39.5 L Mean Corpuscular Volume 95.4 Mean Corpuscular Hemoglobin 31.4 Mean Corpuscular Hemoglobin Concent 32.9 Red Cell Distribution Width 12.8 Platelet Count 232 Mean Platelet Volume 9.8 Immature Granulocytes % 0.500 H Neutrophils % 57.2 Lymphocytes % 25.9 Monocytes % 8.5 Eosinophils % 6.8 Basophils % 1.1 Nucleated Red Blood Cells % 0.0 Immature Granulocytes # 0.040 H Neutrophils # 4.4 Lymphocytes # 2.0 Monocytes # 0.7 Eosinophils # 0.5 Basophils # 0.1 Nucleated Red Blood Cells # 0.0 Sodium Level 143 Potassium Level 3.6 Chloride Level 103 Carbon Dioxide Level 29 Anion Gap 11 Blood Urea Nitrogen 9 Creatinine 0.60 L Est Glomerular Filtrat Rate mL/min > 60 Glucose Level 103 Calcium Level 9.2 Subjective 24 Hr Interval Summary Free Text/Dictation alert, but pulling on IV lines. Appears to be acting impulsively Exam/Review of Systems Exam Vitals Vital Signs Date Temp Pulse Resp B/P (MAP) Pulse Ox O2 O2 Flow FiO2 Time Delivery Rate 11/17/18 98.7 85 18 132/93 96 Trach 12:00 (106) Collar 11/17/18 5.0 28 08:54 Intake and Output 11/16/18 11/16/18 11/17/18 1515:00 23:00 07:00 IntakeIntake Total 830 ml 1350 ml 500 ml OutputOutput Total 700 ml 700 ml 1000 ml BalanceBalance 130 ml 650 ml -500 ml Exam Constitutional: alert, oriented (alert to person) Neck: other (trach in place) Respiratory: other (no obvious wheezing/rhonchi) Gastrointestinal: other (peg tube in place) Genitourinary - Male: ly catheter removed Extremities: No edema Results Results 24hrs Laboratory Tests Test 11/17/18 06:55 White Blood Count 7.6 Red Blood Count 4.14 L Hemoglobin 13.0 L Hematocrit 39.5 L Mean Corpuscular Volume 95.4 Mean Corpuscular Hemoglobin 31.4 Mean Corpuscular Hemoglobin Concent 32.9 Red Cell Distribution Width 12.8 Platelet Count 232 Mean Platelet Volume 9.8 Immature Granulocytes % 0.500 H Neutrophils % 57.2 Lymphocytes % 25.9 Monocytes % 8.5 Eosinophils % 6.8 Basophils % 1.1 Nucleated Red Blood Cells % 0.0 Immature Granulocytes # 0.040 H Neutrophils # 4.4 Lymphocytes # 2.0 Monocytes # 0.7 Eosinophils # 0.5 Basophils # 0.1 Nucleated Red Blood Cells # 0.0 Sodium Level 143 Potassium Level 3.6 Chloride Level 103 Carbon Dioxide Level 29 Anion Gap 11 Blood Urea Nitrogen 9 Creatinine 0.60 L Est Glomerular Filtrat Rate mL/min > 60 Glucose Level 103 Calcium Level 9.2 Medications Medication Current Medications Naloxone HCl (Narcan) 1 mg Q2M PRN IV LETHARGY Last administered on 11/03/18 07:19; Admin Dose 1 MG; Start 11/03/18 at 07:00 IV Flush (NS 3 ml) 3 ml PER PROTOCOL IV ; Start 11/03/18 at 12:00 Ondansetron HCl (Zofran Inj) 4 mg Q6H PRN IV NAUSEA/VOMITING Last administered on 11/07/18 17:46; Admin Dose 4 MG; Start 11/03/18 at 12:00 Acetaminophen (Tylenol Tab) 650 mg Q6H PRN PO .PAIN 1-3 OR TEMP Last administered on 11/12/18 08:45; Admin Dose 650 MG; Start 11/03/18 at 12:00 Acetaminophen/ Hydrocodone Bitart ([place] (5/325)) 1 tab Q6H PRN PO .MOD PAIN 4- 6 Last administered on 11/14/18 14:12; Admin Dose 1 TAB; Start 11/03/18 at 12:00 Docusate Sodium (Colace) 100 mg Q12H PRN PO .CONSTIPATION; Start 11/03/18 at 12:00 Magnesium Hydroxide (Milk Of Mag) 30 ml DAILY PRN PO .CONSTIPATION Last administered on 11/07/18 17:47; Admin Dose 30 ML; Start 11/03/18 at 12:00 Albuterol/ Ipratropium (Duoneb) 3 ml Q4H RESP THERAPY PRN HHN SHORTNESS OF BREATH Last administered on 11/06/18 05:07; Admin Dose 3 ML; Start 11/03/18 at 12:00 Hydralazine HCl (Apresoline) 10 mg Q6H PRN IV ELEVATED BLOOD PRESSURE; Start 11/03/18 at 12:00 Nitroglycerin (Nitroglycerin (Sl Tab) 0.4 Mg) 1 tab Q5M PRN SL ANGINA; Start 11/03/18 at 12:00 Aspirin (Ecotrin) 325 mg DAILY PO Last administered on 11/17/18 08:41; Admin Dose 325 MG; Start 11/04/18 at 09:00 Ascorbic Acid (Vitamin C) 500 mg DAILY GTB Last administered on 11/17/18 08:41; Admin Dose 500 MG; Start 11/04/18 at 09:00 Atorvastatin Calcium (Lipitor) 80 mg QHS GTB Last administered on 11/16/18 21:38; Admin Dose 80 MG; Start 11/03/18 at 21:00 Bisacodyl (Dulcolax Supp) 10 mg DAILY PRN RI CONSTIPATION; Start 11/03/18 at 12:00 Chlorhexidine Gluconate (Peridex) 15 ml Q12H MM Last administered on 11/17/18 12:09; Admin Dose 15 ML; Start 11/03/18 at 12:00 Clonidine (Catapres) 0.2 mg Q8H PRN GTB SBP ABOVE 160; Start 11/03/18 at 12:00 Valproate Sodium (Depakene Liquid Cup) 500 mg BID GTB Last administered on 11/17/18 08:42; Admin Dose 500 MG; Start 11/03/18 at 21:00 Zinc Sulfate (Zinc Sulfate) 220 mg DAILY GTB Last administered on 11/17/18 08:41; Admin Dose 220 MG; Start 11/04/18 at 09:00 Lactobacillus Acidophilus/ Rhamnosus (Culturelle) 1 cap DAILY PO Last administered on 11/17/18 08:41; Admin Dose 1 CAP; Start 11/04/18 at 09:00 Multivitamins/ Minerals (Theragran-M) 1 tab DAILY PO Last administered on 11/17/18 08:41; Admin Dose 1 TAB; Start 11/04/18 at 09:00 Metoprolol Tartrate (Lopressor) 25 mg BID PO Last administered on 11/17/18 08:42; Admin Dose 25 MG; Start 11/03/18 at 21:00 Gabapentin (Neurontin) 600 mg BID GTB Last administered on 11/17/18 08:42; Admi n Dose 600 MG; Start 11/04/18 at 12:00 Risperidone (Risperdal) 2 mg DAILY GTB Last administered on 11/17/18 08:41; Admin Dose 2 MG; Start 11/04/18 at 14:00 Mupirocin (Bactroban) 1 applic BID TOP Last administered on 11/17/18 08:42; Admin Dose 1 APPLIC; Start 11/05/18 at 12:00 Quetiapine Fumarate (Seroquel) 12.5 mg Q8 PRN GTB AGITATION Last administered on 11/16/18 00:13; Admin Dose 12.5 MG; Start 11/06/18 at 11:00 Diphenhydramine HCl (Benadryl) 25 mg Q6H PRN IV ITCHING Last administered on 19:55; Admin Dose 25 MG; Start 11/06/18 at 18:00 Famotidine (Pepcid) 20 mg BID GTB Last administered on 11/17/18 08:41; Admin Dose 20 MG; Start 11/07/18 at 09:00 Lorazepam (Ativan) 1 mg Q6H PRN IV AGITATION Last administered on 11/17/18 12:01; Admin Dose 1 MG; Start 11/15/18 at 20:06 NICOLE LAN NP Nov 17, 2018 12:32
--- NOTE | 2018-11-17 12:57 | CONS ---
Assessment/Plan Assessment/Plan Hospital Course (Demo Recall) IMPRESSION: 1. Positive troponin/NSTEMI-now downtrended-Echo EF 50-55 11/03 2. Abnormal electrocardiogram with incomplete right bundle branch block. 3. Tachycardia, mild. 4. Chronic respiratory failure, status post tracheostomy. 5. Dysphagia, status post G-tube. 6. History of subarachnoid hemorrhage. 7. History of ventriculoperitoneal shunt. 8. 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 s/p JAKE 11/10 with no definite findings for source of embolus but spontaneous contrast in LA/SENAIT which is a marker for low flow/stasis and thus increased risk for development of thrombus(seen with low EF/AF, etc). NOrmal neck CTA 9. HTN-mildly elevated Recc: -Tele -Continue asa/statin -Continue BB with slight increase -Continue to trend cardiac enzymes which are downtrended -would continue to monitor for occult arrythmia(AF) -F/U hypercoag w/u -Lovenox now held due to hematuria Consultation Date/Type/Reason Admit Date/Time November 03, 2018 at 10:30 Initial Consult Date 11/04/18 Type of Consult Cardiology Reason for Consultation Nstemi Requesting Provider: BRANDT RAMÍREZ Date/Time of Note DATE: 11/17/18 TIME: 12:56 Exam/Review of Systems Vital Signs Vitals Vital Signs Date Temp Pulse Resp B/P (MAP) Pulse Ox O2 O2 Flow FiO2 Time Delivery Rate 11/17/18 98.7 85 18 132/93 96 Trach 12:00 (106) Collar 11/17/18 5.0 28 08:54 Intake and Output 11/16/18 11/16/18 11/17/18 1515:00 23:00 07:00 IntakeIntake Total 830 ml 1350 ml 500 ml OutputOutput Total 700 ml 700 ml 1000 ml BalanceBalance 130 ml 650 ml -500 ml Exam Exam Review of Systems: CONSTITUTIONAL: No fevers, chills. PULMONARY:trached CARDIOVASCULAR: No chest pain/palpitations GASTROINTESTINAL: No nausea/vomiting. GENITOURINARY: No hematuria/dysuria. MUSCULOSKELETAL: No myagias/arthalgias. PSYCHIATRIC: The patient denies depression. NEUROLOGIC: No weakness Constitutional: other (sleeping) Psych: no complaints ENMT: mucosa pink and moist, other Neck: other (trached) Respiratory: diminished breath sounds (at bases/B) Cardiovascular: regular rate and rhythm Gastrointestinal: soft, non-tender Musculoskeletal: muscle weakness (mid generalized) Labs Result Diagram: 11/17/18 0655 11/17/18 0655 Results 24hrs Laboratory Tests Test 11/17/18 06:55 White Blood Count 7.6 Red Blood Count 4.14 L Hemoglobin 13.0 L Hematocrit 39.5 L Mean Corpuscular Volume 95.4 Mean Corpuscular Hemoglobin 31.4 Mean Corpuscular Hemoglobin Concent 32.9 Red Cell Distribution Width 12.8 Platelet Count 232 Mean Platelet Volume 9.8 Immature Granulocytes % 0.500 H Neutrophils % 57.2 Lymphocytes % 25.9 Monocytes % 8.5 Eosinophils % 6.8 Basophils % 1.1 Nucleated Red Blood Cells % 0.0 Immature Granulocytes # 0.040 H Neutrophils # 4.4 Lymphocytes # 2.0 Monocytes # 0.7 Eosinophils # 0.5 Basophils # 0.1 Nucleated Red Blood Cells # 0.0 Sodium Level 143 Potassium Level 3.6 Chloride Level 103 Carbon Dioxide Level 29 Anion Gap 11 Blood Urea Nitrogen 9 Creatinine 0.60 L Est Glomerular Filtrat Rate mL/min > 60 Glucose Level 103 Calcium Level 9.2 Medications Medications Current Medications Naloxone HCl (Narcan) 1 mg Q2M PRN IV LETHARGY Last administered on 11/03/18at 07:19; Admin Dose 1 MG; Start 11/03/18 at 07:00 IV Flush (NS 3 ml) 3 ml PER PROTOCOL IV ; Start 11/03/18 at 12:00 Ondansetron HCl (Zofran Inj) 4 mg Q6H PRN IV NAUSEA/VOMITING Last administered on 11/07/18at 17:46; Admin Dose 4 MG; Start 11/03/18 at 12:00 Acetaminophen (Tylenol Tab) 650 mg Q6H PRN PO .PAIN 1-3 OR TEMP Last administered on 11/12/18at 08:45; Admin Dose 650 MG; Start 11/03/18 at 12:00 Acetaminophen/ Hydrocodone Bitart ([place] (5/325)) 1 tab Q6H PRN PO .MOD PAIN 4- 6 Last administered on 11/14/18at 14:12; Admin Dose 1 TAB; Start 11/03/18 at 12:00 Docusate Sodium (Colace) 100 mg Q12H PRN PO .CONSTIPATION; Start 11/03/18 at 12:00 Magnesium Hydroxide (Milk Of Mag) 30 ml DAILY PRN PO .CONSTIPATION Last administered on 11/07/18 17:47; Admin Dose 30 ML; Start 11/03/18 at 12:00 Albuterol/ Ipratropium (Duoneb) 3 ml Q4H RESP THERAPY PRN HHN SHORTNESS OF BREATH Last administered on 11/06/18 05:07; Admin Dose 3 ML; Start 11/03/18 at 12:00 Hydralazine HCl (Apresoline) 10 mg Q6H PRN IV ELEVATED BLOOD PRESSURE; Start 11/03/18 at 12:00 Nitroglycerin (Nitroglycerin (Sl Tab) 0.4 Mg) 1 tab Q5M PRN SL ANGINA; Start 11/03/18 at 12:00 Aspirin (Ecotrin) 325 mg DAILY PO Last administered on 11/17/18 08:41; Admin Dose 325 MG; Start 11/04/18 at 09:00 Ascorbic Acid (Vitamin C) 500 mg DAILY GTB Last administered on 11/17/18 08:41; Admin Dose 500 MG; Start 11/04/18 at 09:00 Atorvastatin Calcium (Lipitor) 80 mg QHS GTB Last administered on 11/16/18 21:38; Admin Dose 80 MG; Start 11/03/18 at 21:00 Bisacodyl (Dulcolax Supp) 10 mg DAILY PRN [place] CONSTIPATION; Start 11/03/18 at 12:00 Chlorhexidine Gluconate (Peridex) 15 ml Q12H MM Last administered on 11/17/18 12:09; Admin Dose 15 ML; Start 11/03/18 at 12:00 Clonidine (Catapres) 0.2 mg Q8H PRN GTB SBP ABOVE 160; Start 11/03/18 at 12:00 Valproate Sodium (Depakene Liquid Cup) 500 mg BID GTB Last administered on 11/17/18 08:42; Admin Dose 500 MG; Start 11/03/18 at 21:00 Zinc Sulfate (Zinc Sulfate) 220 mg DAILY GTB Last administered on 11/17/18 08 :41; Admin Dose 220 MG; Start 11/04/18 at 09:00 Lactobacillus Acidophilus/ Rhamnosus (Culturelle) 1 cap DAILY PO Last administered on 11/17/18 08:41; Admin Dose 1 CAP; Start 11/04/18 at 09:00 Multivitamins/ Minerals (Theragran-M) 1 tab DAILY PO Last administered on 11/17/18 08:41; Admin Dose 1 TAB; Start 11/04/18 at 09:00 Metoprolol Tartrate (Lopressor) 25 mg BID PO Last administered on 11/17/18 08:42; Admin Dose 25 MG; Start 11/03/18 at 21:00 Gabapentin (Neurontin) 600 mg BID GTB Last administered on 11/17/18 08:42; Admin Dose 600 MG; Start 11/04/18 at 12:00 Risperidone (Risperdal) 2 mg DAILY GTB Last administered on 11/17/18 08:41; Admin Dose 2 MG; Start 11/04/18 at 14:00 Mupirocin (Bactroban) 1 applic BID TOP Last administered on 11/17/18 08:42; Admin Dose 1 APPLIC; Start 11/05/18 at 12:00 Quetiapine Fumarate (Seroquel) 12.5 mg Q8 PRN GTB AGITATION Last administered on 11/16/18 00:13; Admin Dose 12.5 MG; Start 11/06/18 at 11:00 Diphenhydramine HCl (Benadryl) 25 mg Q6H PRN IV ITCHING Last administered on 11/15/18 19:55; Admin Dose 25 MG; Start 11/06/18 at 18:00 Famotidine (Pepcid) 20 mg BID GTB Last administered on 11/17/18 08:41; Admin Dose 20 MG; Start 11/07/18 at 09:00 Lorazepam (Ativan) 1 mg Q6H PRN IV AGITATION Last administered on 11/17/18 12:01; Admin Dose 1 MG; Start 11/15/18 at 20:06 NORMAN KESSLER Nov 17, 2018 12:57
--- NOTE | 2018-11-17 14:47 | CONS ---
Assessment/Plan Assessment/Plan Assessment/Plan (Recall) 43 yo M with multiple comorbidities who presents for evaluation of ams in the context of respiratory sx. 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 for which neurology is consulted. The clinical picture raises concern for a cardioembolic process. Vasculitis is less likely. Echo (TTE) is unrevealing. JAKE was without evidence of intracardiac thrombus, though notable for spontaneous contrast and possible slow flow in the LA CTA H/N was only notable for stable L MARNI aneurysm coil LDL 16, ESR 57, RPR neg, HIV neg Protein C and S low P: Cont ASA for secondary stroke prevention; LDL is at goal BP and other medical management per primary [place] as able Limit sedating medications where possible PT/OT/ST when able Will follow clinically Consultation Date/Type/Reason Admit Date/Time November 03, 2018 at 10:30 Type of Consult Neurology Reason for Consultation Strokes Requesting Provider: BRANDT RAMÍREZ Date/Time of Note DATE: 11/17/18 TIME: 14:47 24 HR Interval Summary Free Text/Dictation Continues acute care. Awaiting placement. Exam/Review of Systems Exam Vitals Vital Signs Date Temp Pulse Resp B/P (MAP) Pulse Ox O2 O2 Flow FiO2 Time Delivery Rate 11/17/18 98.5 76 18 123/88 98 14:00 (100) 11/17/18 Trach 12:00 Collar 11/17/18 5.0 28 08:54 Intake and Output 11/16/18 11/16/18 11/17/18 1515:00 23:00 07:00 IntakeIntake Total 830 ml 1350 ml 500 ml OutputOutput Total 700 ml 700 ml 1000 ml BalanceBalance 130 ml 650 ml -500 ml Exam PE: Gen Appearance: No Apparent Distress; On 2-pt restraints HEENT: Trached Cardiovascular: Regular rate Abdomen: Soft Extremities: Dry NE: The patient was awake, alert, and mouthing words. Unable to understand d/t trach. The pt was able to follow simple axial and appendicular commands. Cranial nerve examination was limited by mental status. Pupils were equal and reactive to light. There was no afferent pupillary defect. Funduscopic examination was limited. Face was grossly symmetric, w/ present corneal and cough reflexes. Tone was normal. Muscle bulk was normal. I did not see fasciculations. The patient had spontaneous movement of all extremities. Coordination and gait testing was limited by mental status. Arm and leg reflexes were within normal limits and symmetric. Carlson's sign was absent. Plantar responses were flexor. Results Result Diagram: 11/17/18 0655 11/17/18 0655 Results 24hrs Laboratory Tests Test 11/17/18 06:55 White Blood Count 7.6 Red Blood Count 4.14 L Hemoglobin 13.0 L Hematocrit 39.5 L Mean Corpuscular Volume 95.4 Mean Corpuscular Hemoglobin 31.4 Mean Corpuscular Hemoglobin Concent 32.9 Red Cell Distribution Width 12.8 Platelet Count 232 Mean Platelet Volume 9.8 Immature Granulocytes % 0.500 H Neutrophils % 57.2 Lymphocytes % 25.9 Monocytes % 8.5 Eosinophils % 6.8 Basophils % 1.1 Nucleated Red Blood Cells % 0.0 Immature Granulocytes # 0.040 H Neutrophils # 4.4 Lymphocytes # 2.0 Monocytes # 0.7 Eosinophils # 0.5 Basophils # 0.1 Nucleated Red Blood Cells # 0.0 Sodium Level 143 Potassium Level 3.6 Chloride Level 103 Carbon Dioxide Level 29 Anion Gap 11 Blood Urea Nitrogen 9 Creatinine 0.60 L Est Glomerular Filtrat Rate mL/min > 60 Glucose Level 103 Calcium Level 9.2 Medications Medication Current Medications Naloxone HCl (Narcan) 1 mg Q2M PRN IV LETHARGY Last administered on 11/03/18at 07:19; Admin Dose 1 MG; Start 11/03/18 at 07:00 IV Flush (NS 3 ml) 3 ml PER PROTOCOL IV ; Start 11/03/18 at 12:00 Ondansetron HCl (Zofran Inj) 4 mg Q6H PRN IV NAUSEA/VOMITING Last administered on 11/07/18at 17:46; Admin Dose 4 MG; Start 11/03/18 at 12:00 Acetaminophen (Tylenol Tab) 650 mg Q6H PRN PO .PAIN 1-3 OR TEMP Last administered on 11/12/18at 08:45; Admin Dose 650 MG; Start 11/03/18 at 12:00 Acetaminophen/ Hydrocodone Bitart ([place] (5/325)) 1 tab Q6H PRN PO .MOD PAIN 4-6 Last administered on 11/14/18at 14:12; Admin Dose 1 TAB; Start 11/03/18 at 12:00 Docusate Sodium (Colace) 100 mg Q12H PRN PO .CONSTIPATION; Start 11/03/18 at 12:00 Magnesium Hydroxide (Milk Of Mag) 30 ml DAILY PRN PO .CONSTIPATION Last administered on 11/07/18 17:47; Admin Dose 30 ML; Start 11/03/18 at 12:00 Albuterol/ Ipratropium (Duoneb) 3 ml Q4H RESP THERAPY PRN HHN SHORTNESS OF BREATH Last administered on 11/06/18 05:07; Admin Dose 3 ML; Start 11/03/18 at 12:00 Hydralazine HCl (Apresoline) 10 mg Q6H PRN IV ELEVATED BLOOD PRESSURE; Start 11/03/18 at 12:00 Nitroglycerin (Nitroglycerin (Sl Tab) 0.4 Mg) 1 tab Q5M PRN SL ANGINA; Start 11/03/18 at 12:00 Aspirin (Ecotrin) 325 mg DAILY PO Last administered on 11/17/18 08:41; Admin Dose 325 MG; Start 11/04/18 at 09:00 Ascorbic Acid (Vitamin C) 500 mg DAILY GTB Last administered on 11/17/18 08:41; Admin Dose 500 MG; Start 11/04/18 at 09:00 Atorvastatin Calcium (Lipitor) 80 mg QHS GTB Last administered on 11/16/18 21:38; Admin Dose 80 MG; Start 11/03/18 at 21:00 Bisacodyl (Dulcolax Supp) 10 mg DAILY PRN [place] CONSTIPATION; Start 11/03/18 at 12:00 Chlorhexidine Gluconate (Peridex) 15 ml Q12H MM Last administered on 11/17/18 12:09; Admin Dose 15 ML; Start 11/03/18 at 12:00 Clonidine (Catapres) 0.2 mg Q8H PRN GTB SBP ABOVE 160; Start 11/03/18 at 12:00 Valproate Sodium (Depakene Liquid Cup) 500 mg BID GTB Last administered on 08:42; Admin Dose 500 MG; Start 11/03/18 at 21:00 Zinc Sulfate (Zinc Sulfate) 220 mg DAILY GTB Last administered on 11/17/18 08:41; Admin Dose 220 MG; Start 11/04/18 at 09:00 Lactobacillus Acidophilus/ Rhamnosus (Culturelle) 1 cap DAILY PO Last administered on 11/17/18 08:41; Admin Dose 1 CAP; Start 11/04/18 at 09:00 Multivitamins/ Minerals (Theragran-M) 1 tab DAILY PO Last administered on 11/17/18 08:41; Admin Dose 1 TAB; Start 11/04/18 at 09:00 Gabapentin (Neurontin) 600 mg BID GTB Last administered on 11/17/18 08:42; Admin Dose 600 MG; Start 11/04/18 at 12:00 Risperidone (Risperdal) 2 mg DAILY GTB Last administered on 11/17/18 08:41; Admin Dose 2 MG; Start 11/04/18 at 14:00 Mupirocin (Bactroban) 1 applic BID TOP Last administered on 11/17/18 08:42; Admin Dose 1 APPLIC; Start 11/05/18 at 12:00 Quetiapine Fumarate (Seroquel) 12.5 mg Q8 PRN GTB AGITATION Last administered o n 11/16/18 00:13; Admin Dose 12.5 MG; Start 11/06/18 at 11:00 Diphenhydramine HCl (Benadryl) 25 mg Q6H PRN IV ITCHING Last administered on 11/15/18 19:55; Admin Dose 25 MG; Start 11/06/18 at 18:00 Famotidine (Pepcid) 20 mg BID GTB Last administered on 11/17/18 08:41; Admin Dose 20 MG; Start 11/07/18 at 09:00 Lorazepam (Ativan) 1 mg Q6H PRN IV AGITATION Last administered on 11/17/18 12:01; Admin Dose 1 MG; Start 11/15/18 at 20:06 Metoprolol Tartrate (Lopressor) 50 mg BID PO ; Start 11/17/18 at 21:00 MOY BENJAMIN NP Nov 17, 2018 14:47
[2018-11-17] MEDS: HYDROCODONE/APAP (5/325) TAB PO PRN (15:17)
--- NOTE | 2018-11-17 15:27 | CONS ---
Assessment/Plan Assessment/Plan Hospital Course (Demo Recall) No acute changes. Awake, looks comfortable, no fevers Microbiology: Urine culture neg, sputum cx + PSA Antimicrobials: none Indwelling's: Trach PEG Higgins Physical examination: This is a chronically ill-appearing middle-aged man who is noncommunicative the patient is in no distress. Head atraumatic normocephalic. Neck is supple. Tracheostomy present. Chest rise symmetrical, breath sounds diminished to bases. Heart: S1-S2. Abdomen soft bowel sounds present. Patient has Higgins catheter with bloody urine. Extremities without cyanosis. Assessment: 1. S/p Hematuria 2. Status post pneumonia 3. Chronic respiratory failure and dysphagia 4. Status post coag negative staph bacteremia on admission consistent with contaminant 5. Chronic encephalopathy, history of subarachnoid hemorrhage Plan: Stable, pending discharge arrangements Consultation Date/Type/Reason Admit Date/Time November 03, 2018 at 10:30 Initial Consult Date Type of Consult id Requesting Provider: BRANDT RAMÍREZ Date/Time of Note DATE: 11/17/18 TIME: 15:26 Exam/Review of Systems Exam Vitals Vital Signs Date Temp Pulse Resp B/P (MAP) Pulse Ox O2 O2 Flow FiO2 Time Delivery Rate 11/17/18 98.5 76 18 123/88 98 14:00 (100) 11/17/18 5.0 28 13:00 11/17/18 Aerosol 13:00 Intake and Output 11/16/18 11/16/18 11/17/18 1515:00 23:00 07:00 IntakeIntake Total 830 ml 1350 ml 500 ml OutputOutput Total 700 ml 700 ml 1000 ml BalanceBalance 130 ml 650 ml -500 ml Results Result Diagram: 11/17/18 0655 11/17/18 0655 Results 24hrs Laboratory Tests Test 11/17/18 06:55 White Blood Count 7.6 Red Blood Count 4.14 L Hemoglobin 13.0 L Hematocrit 39.5 L Mean Corpuscular Volume 95.4 Mean Corpuscular Hemoglobin 31.4 Mean Corpuscular Hemoglobin Concent 32.9 Red Cell Distribution Width 12.8 Platelet Count 232 Mean Platelet Volume 9.8 Immature Granulocytes % 0.500 H Neutrophils % 57.2 Lymphocytes % 25.9 Monocytes % 8.5 Eosinophils % 6.8 Basophils % 1.1 Nucleated Red Blood Cells % 0.0 Immature Granulocytes # 0.040 H Neutrophils # 4.4 Lymphocytes # 2.0 Monocytes # 0.7 Eosinophils # 0.5 Basophils # 0.1 Nucleated Red Blood Cells # 0.0 Sodium Level 143 Potassium Level 3.6 Chloride Level 103 Carbon Dioxide Level 29 Anion Gap 11 Blood Urea Nitrogen 9 Creatinine 0.60 L Est Glomerular Filtrat Rate mL/min > 60 Glucose Level 103 Calcium Level 9.2 Medications Medication Current Medications Naloxone HCl (Narcan) 1 mg Q2M PRN IV LETHARGY Last administered on 11/03/18 07:19; Admin Dose 1 MG; Start 11/03/18 at 07:00 IV Flush (NS 3 ml) 3 ml PER PROTOCOL IV ; Start 11/03/18 at 12:00 Ondansetron HCl (Zofran Inj) 4 mg Q6H PRN IV NAUSEA/VOMITING Last administered on 11/07/18at 17:46; Admin Dose 4 MG; Start 11/03/18 at 12:00 Acetaminophen (Tylenol Tab) 650 mg Q6H PRN PO .PAIN 1-3 OR TEMP Last administered on 11/12/18at 08:45; Admin Dose 650 MG; Start 11/03/18 at 12:00 Acetaminophen/ Hydrocodone Bitart ([place] (5/325)) 1 tab Q6H PRN PO .MOD PAIN 4- 6 Last administered on 11/17/18at 15:17; Admin Dose 1 TAB; Start 11/03/18 at 12:00 Docusate Sodium (Colace) 100 mg Q12H PRN PO .CONSTIPATION; Start 11/03/18 at 12:00 Magnesium Hydroxide (Milk Of Mag) 30 ml DAILY PRN PO .CONSTIPATION Last administered on 11/07/18at 17:47; Admin Dose 30 ML; Start 11/03/18 at 12:00 Albuterol/ Ipratropium (Duoneb) 3 ml Q4H RESP THERAPY PRN HHN SHORTNESS OF BREATH Last administered on 11/06/18at 05:07; Admin Dose 3 ML; Start 11/03/18 at 12:00 Hydralazine HCl (Apresoline) 10 mg Q6H PRN IV ELEVATED BLOOD PRESSURE; Start 11/03/18 at 12:00 Nitroglycerin (Nitroglycerin (Sl Tab) 0.4 Mg) 1 tab Q5M PRN SL ANGINA; Start 11/03/18 at 12:00 Aspirin (Ecotrin) 325 mg DAILY PO Last administered on 11/17/18 08:41; Admin Dose 325 MG; Start 11/04/18 at 09:00 Ascorbic Acid (Vitamin C) 500 mg DAILY GTB Last administered on 11/17/18 08:41; Admin Dose 500 MG; Start 11/04/18 at 09:00 Atorvastatin Calcium (Lipitor) 80 mg QHS GTB Last administered on 11/16/18 21:38; Admin Dose 80 MG; Start 11/03/18 at 21:00 Bisacodyl (Dulcolax Supp) 10 mg DAILY PRN [place] CONSTIPATION; Start 11/03/18 at 12:00 Chlorhexidine Gluconate (Peridex) 15 ml Q12H MM Last administered on 11/17/18 12:09; Admin Dose 15 ML; Start 11/03/18 at 12:00 Clonidine (Catapres) 0.2 mg Q8H PRN GTB SBP ABOVE 160; Start 11/03/18 at 12:00 Valproate Sodium (Depakene Liquid Cup) 500 mg BID GTB Last administered on 11/17/18 08:42; Admin Dose 500 MG; Start 11/03/18 at 21:00 Zinc Sulfate (Zinc Sulfate) 220 mg DAILY GTB Last administered on 11/17/18 08:41; Admin Dose 220 MG; Start 11/04/18 at 09:00 Lactobacillus Acidophilus/ Rhamnosus (Culturelle) 1 cap DAILY PO Last administered on 11/17/18 08:41; Admin Dose 1 CAP; Start 11/04/18 at 09:00 Multivitamins/ Minerals (Theragran-M) 1 tab DAILY PO Last administered on 08:41; Admin Dose 1 TAB; Start 11/04/18 at 09:00 Gabapentin (Neurontin) 600 mg BID GTB Last administered on 11/17/18 08:42; Admin Dose 600 MG; Start 11/04/18 at 12:00 Risperidone (Risperdal) 2 mg DAILY GTB Last administered on 11/17/18 08:41; Admin Dose 2 MG; Start 11/04/18 at 14:00 Mupirocin (Bactroban) 1 applic BID TOP Last administered on 11/17/18 08:42; Admin Dose 1 APPLIC; Start 11/05/18 at 12:00 Quetiapine Fumarate (Seroquel) 12.5 mg Q8 PRN GTB AGITATION Last administered on 11/16/18 00:13; Admin Dose 12.5 MG; Start 11/06/18 at 11:00 Diphenhydramine HCl (Benadryl) 25 mg Q6H PRN IV ITCHING Last administered on 11/15/18at 19:55; Admin Dose 25 MG; Start 11/06/18 at 18:00 Famotidine (Pepcid) 20 mg BID GTB Last administered on 11/17/18at 08:41; Admin Dose 20 MG; Start 11/07/18 at 09:00 Lorazepam (Ativan) 1 mg Q6H PRN IV AGITATION Last administered on 11/17/18at 12:01; Admin Dose 1 MG; Start 11/15/18 at 20:06 Metoprolol Tartrate (Lopressor) 50 mg BID PO ; Start 11/17/18 at 21:00 AIMEE BRADSHAW NP Nov 17, 2018 15:27
[2018-11-17] MEDS: ATORVASTATIN 40 MG TAB GTB SCH (20:25)
[2018-11-17] MEDS: QUETIAPINE 25 MG TAB GTB PRN (20:26)
[2018-11-17] MEDS: DIPHENHYDRAMINE 50 MG INJ IV PRN (22:21)
[2018-11-18] VITALS (9 sets, daily range): BP systolic 94–132; BP diastolic 62–80; PULSE 61–95; RESP 16–18
[2018-11-18] MEDS: CHLORHEXIDINE GLUCONATE 15 ML UD CUP MM SCH ×2 (00:24→14:01)
[2018-11-18] MEDS: VALPROIC ACID LIQUID CUP 250 MG/5 ML CUP GTB SCH ×2 (08:38→20:40)
[2018-11-18] MEDS: ASCORBIC ACID 500 MG TAB GTB SCH (08:38)
[2018-11-18] MEDS: LACTOBACILLUS RHAMNOSUS CAP PO SCH (08:38)
[2018-11-18] MEDS: FAMOTIDINE 20 MG TAB GTB SCH ×2 (08:38→20:42)
[2018-11-18] MEDS: ASPIRIN (EC) 325 MG TAB PO SCH (08:38)
[2018-11-18] MEDS: MULTIVITAMINS/MINERALS TAB PO SCH (08:38)
[2018-11-18] MEDS: ZINC SULFATE 220 MG CAP GTB SCH (08:39)
[2018-11-18] MEDS: GABAPENTIN 300 MG CAP GTB SCH ×2 (08:39→20:43)
[2018-11-18] MEDS: METOPROLOL 25 MG TAB PO SCH ×2 (08:39→20:43)
--- NOTE | 2018-11-18 09:07 | CONS ---
Consult Date/Type/Reason Admit Date/Time November 03, 2018 at 10:30 Initial Consult Date 11/14/18 Type of Consultation: Urology Reason for Consultation Hematuria Requesting Provider: BRANDT RAMÍREZ Date/Time of Note DATE: 11/18/18 TIME: 09:04 Subjective Patient is restless at time, he is voiding and was reported to be incontinent time 8 Objective Vitals Vital Signs Date Temp Pulse Resp B/P (MAP) Pulse Ox O2 O2 Flow FiO2 Time Delivery Rate 11/18/18 98.5 70 18 132/80 99 08:01 (97) 11/18/18 T Tube 5.0 06:01 11/18/18 28 05:14 Intake and Output 11/17/18 11/17/18 11/18/18 1515:00 23:00 07:00 IntakeIntake Total 1340 ml BalanceBalance 1340 ml Exam The patient has been voiding in the towels and the urine is clear. Results/Medications Result Diagram: 11/18/18 0450 11/18/18 0450 Results 24 hrs Laboratory Tests Test 11/18/18 04:50 White Blood Count 8.4 Red Blood Count 3.99 L Hemoglobin 12.6 L Hematocrit 38.5 L Mean Corpuscular Volume 96.5 Mean Corpuscular Hemoglobin 31.6 Mean Corpuscular Hemoglobin Concent 32.7 Red Cell Distribution Width 12.8 Platelet Count 209 Mean Platelet Volume 10.8 H Immature Granulocytes % 0.600 H Neutrophils % 47.9 Lymphocytes % 31.3 Monocytes % 10.9 Eosinophils % 7.8 H Basophils % 1.5 Nucleated Red Blood Cells % 0.0 Immature Granulocytes # 0.050 H Neutrophils # 4.0 Lymphocytes # 2.6 Monocytes # 0.9 Eosinophils # 0.7 H Basophils # 0.1 Nucleated Red Blood Cells # 0.0 Sodium Level 143 Potassium Level 3.8 Chloride Level 107 Carbon Dioxide Level 27 Anion Gap 9 Blood Urea Nitrogen 10 Creatinine 0.58 L Est Glomerular Filtrat Rate mL/min > 60 Glucose Level 88 Calcium Level 9.2 Home Meds Active Scripts Metoprolol Tartrate* (Lopressor*) 25 Mg Tab, 25 MG PO BID, #60 TAB Prov:NICOLE LAN [employer]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 11/16/18 Reported Medications Zinc Sulfate* (Zinc Sulfate*) 220 Mg Tablet, 220 MG GTB DAILY, TAB STOP TAKING 11/21/18 11/03/18 Ascorbic Acid* (Vitamin C*) 500 Mg Capsule.sa, 500 MG GTB DAILY, CAP 11/03/18 Valproic Acid* (Valproic Acid* Liq) 250 Mg/5 Ml Syrup, 10 ML GTB BID, ML 11/03/18 Acetaminophen* (Tylenol*) 325 Mg Tablet, 650 MG GTB Q4H PRN for MILD PAIN LEVEL 1-3, TAB AND FEVER 101F,STOP DATE 12/21/18 11/03/18 Risperidone* (Risperdal*) 1 Mg Tablet, 2 MG GTB DAILY, TAB STOP DATE 11/05/18 11/03/18 Hydrocodone/Acetaminophen ([place] 5-325 Tablet) 1 Each Tablet, 1 EACH GTB Q6H PRN for PAIN -02/21, TAB 11/03/18 Multivitamin with Minerals (Multivitamins with Minerals) 1 Each Tablet, 1 EACH GTB DAILY, TAB 11/03/18 Magnesium Hydroxide* (Milk Of Magnesia*) 400 Mg/5 Ml Oral.susp, 30 ML GTB NEEDED, ML 11/03/18 Gabapentin* (Gabapentin*) 300 Mg Capsule, 600 MG GTB BID, #180 CAP 11/03/18 Bisacodyl (Dulcolax) 10 Mg Supp.rect, 10 MG RC PRN, SUPP.RECT 11/03/18 Docusate Sodium* (Colace*) 100 Mg Capsule, 200 MG GTB QHS, #60 CAP 11/03/18 Clonidine Hcl* (Clonidine Hcl*) 0.1 Mg Tab, 0.2 MG GTB Q8H PRN for HTN, TAB HOLD FOR SBPBELOW 110 OR HR BELOW 60 11/03/18 Chlorhexidine Gluconate (Periogard) 473 Ml Mouthwash, 15 ML MM Q12H, BOTTLE 11/03/18 Atorvastatin* (Atorvastatin*) 40 Mg Tablet, 80 MG GTB QHS, #30 TAB 11/03/18 Albuterol Sulfate* (Albuterol Sulfate* Neb) 0.083%-3 Ml Neb, 2.5 MG NEB Q6H PRN for WHEEZING AND SOB, #30 VIAL AND NEEDED Q3H 11/03/18 Lactobacillus Acidophilus/Pect (Acidophilus-Pectin Capsule) 1 Each Capsule, 1 EACH GTB DAILY, CAP 11/03/18 Discontinued Reported Medications Cran/Vitc/Mannose/Inulin/Brom (Uti-Stat Liquid) 3,875 Mg/30 Ml Liquid, 30 ML GTB DAILY 11/03/18 Acetaminophen* (Acetaminophen*) 500 MG Extra Strength Tablet, 1000 MG GTB Q4H PRN for PAIN -11/21, TAB 11/03/18 Acetaminophen* (Tylenol*) 325 Mg Tablet, 650 MG GTB BID PRN for PAIN AND OR ELEVATED TEMP, TAB 11/03/18 Acetaminophen* (Tylenol*) 325 Mg Tablet, 650 MG GTB NEEDED PRN for TRACH TUBE CHANGE, TAB 11/03/18 Amino Acids/Protein Hydrolys (PRO-STAT LIQUID) 30 Ml Liquid.pkt, 30 ML GTB BID 11/03/18 Heparin Sodium,Porcine/Pf (HEPARIN SOD 5,000 UNIT/ 0.5 ML) 5,000 Unit/0.5 Ml Vial, 5000 UNIT IJ Q12H, VIAL 11/03/18 Mineral Oil* (Fleet* Mineral Oil Enema) Unknown Strength Oil, 1 APPLIC [place] NEEDED PRN for CONSTIPATION, ENEMA 11/03/18 Medications Current Medications Naloxone HCl (Narcan) 1 mg Q2M PRN IV LETHARGY Last administered on 11/03/18at 07:19; Admin Dose 1 MG; Start 11/03/18 at 07:00 IV Flush (NS 3 ml) 3 ml PER PROTOCOL IV ; Start 11/03/18 at 12:00 Ondansetron HCl (Zofran Inj) 4 mg Q6H PRN IV NAUSEA/VOMITING Last administered on 11/07/18at 17:46; Admin Dose 4 MG; Start 11/03/18 at 12:00 Acetaminophen (Tylenol Tab) 650 mg Q6H PRN PO .PAIN 1-3 OR TEMP Last administered on 11/12/18at 08:45; Admin Dose 650 MG; Start 11/03/18 at 12:00 Acetaminophen/ Hydrocodone Bitart ([place] (5/325)) 1 tab Q6H PRN PO .MOD PAIN 4- 6 Last administered on 11/17/18at 15:17; Admin Dose 1 TAB; Start 11/03/18 at 12:00 Docusate Sodium (Colace) 100 mg Q12H PRN PO .CONSTIPATION; Start 11/03/18 at 12:00 Magnesium Hydroxide (Milk Of Mag) 30 ml DAILY PRN PO .CONSTIPATION Last administered on 11/07/18 17:47; Admin Dose 30 ML; Start 11/03/18 at 12:00 Albuterol/ Ipratropium (Duoneb) 3 ml Q4H RESP THERAPY PRN HHN SHORTNESS OF BREATH Last administered on 11/06/18 05:07; Admin Dose 3 ML; Start 11/03/18 at 12:00 Hydralazine HCl (Apresoline) 10 mg Q6H PRN IV ELEVATED BLOOD PRESSURE; Start 11/03/18 at 12:00 Nitroglycerin (Nitroglycerin (Sl Tab) 0.4 Mg) 1 tab Q5M PRN SL ANGINA; Start 11/03/18 at 12:00 Aspirin (Ecotrin) 325 mg DAILY PO Last administered on 11/18/18 08:38; Admin Dose 325 MG; Start 11/04/18 at 09:00 Ascorbic Acid (Vitamin C) 500 mg DAILY GTB Last administered on 11/18/18 08:38; Admin Dose 500 MG; Start 11/04/18 at 09:00 Atorvastatin Calcium (Lipitor) 80 mg QHS GTB Last administered on 11/17/18 20:25; Admin Dose 80 MG; Start 11/03/18 at 21:00 Bisacodyl (Dulcolax Supp) 10 mg DAILY PRN [place] CONSTIPATION; Start 11/03/18 at 12:00 Chlorhexidine Gluconate (Peridex) 15 ml Q12H MM Last administered on 11/18/18 00:24; Admin Dose 15 ML; Start 11/03/18 at 12:00 Clonidine (Catapres) 0.2 mg Q8H PRN GTB SBP ABOVE 160; Start 11/03/18 at 12:00 Valproate Sodium (Depakene Liquid Cup) 500 mg BID GTB Last administered on 11/18/18 08:38; Admin Dose 500 MG; Start 11/03/18 at 21:00 Zinc Sulfate (Zinc Sulfate) 220 mg DAILY GTB Last administered on 11/18/18 08:39; Admin Dose 220 MG; Start 11/04/18 at 09:00 Lactobacillus Acidophilus/ Rhamnosus (Culturelle) 1 cap DAILY PO Last administered on 11/18/18 08:38; Admin Dose 1 CAP; Start 11/04/18 at 09:00 Multivitamins/ Minerals (Theragran-M) 1 tab DAILY PO Last administered on 11/18/18 08:38; Admin Dose 1 TAB; Start 11/04/18 at 09:00 Gabapentin (Neurontin) 600 mg BID GTB Last administered on 11/18/18 08:39; Admin Dose 600 MG; Start 11/04/18 at 12:00 Risperidone (Risperdal) 2 mg DAILY GTB Last administered on 11/17/18 08:41; Admin Dose 2 MG; Start 11/04/18 at 14:00 Mupirocin (Bactroban) 1 applic BID TOP Last administered on 11/17/18 20:25; Admin Dose 1 APPLIC; Start 11/05/18 at 12:00 Quetiapine Fumarate (Seroquel) 12.5 mg Q8 PRN GTB AGITATION Last administered on 11/17/18 20:26; Admin Dose 12.5 MG; Start 11/06/18 at 11:00 Diphenhydramine HCl (Benadryl) 25 mg Q6H PRN IV ITCHING Last administered on 11/17/18 22:21; Admin Dose 25 MG; Start 11/06/18 at 18:00 Famotidine (Pepcid) 20 mg BID GTB Last administered on 11/18/18 08:38; Admin Dose 20 MG; Start 11/07/18 at 09:00 Lorazepam (Ativan) 1 mg Q6H PRN IV AGITATION Last administered on 11/17/18 17:59; Admin Dose 1 MG; Start 11/15/18 at 20:06 Metoprolol Tartrate (Lopressor) 50 mg BID PO Last administered on 11/18/18 08: 39; Admin Dose 50 MG; Start 11/17/18 at 21:00 Assessment/Plan Hospital Course (Demo Recall) 43-year-old male with history of subarachnoid hemorrhage 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 Patient was evaluated and was found to have had an episode of apnea and altered mental status, he also was found to have elevated troponin and renal insufficiency. He is known to have a history of hypertension and high cholesterol. He has a tracheostomy and G-tube and an indwelling Higgins catheter. He was noted to have gross hematuria and that has not cleared even though the patient was treated with antibiotic and is well hydrated. Patient did have a three-way Higgins catheter with continuous bladder irrigation. Once the return from the irrigation was clear the irrigation was stopped. The urine remained clear overnight. The Higgins catheter was removed and the patient has been voiding in the towels. The urine has been clear. Therefore the patient may be discharged from a urological standpoint. EDWIN HOGAN MD Nov 18, 2018 09:07
[2018-11-18] MEDS: RISPERIDONE 2 MG TAB GTB SCH (10:51)
[2018-11-18] MEDS ORDERED: METO-448 PO (11:49)
--- NOTE | 2018-11-18 11:55 | PN ---
Date/Time of Note Date/Time of Note DATE: 11/18/18 TIME: 11:51 Assessment/Plan VTE Prophylaxis Risk score (from Ns)>0 risk: 3 SCD applied (from Ns): Yes Pharmacological prophylaxis: heparin Lines/Catheters IV Catheter Type (from [facility]): Peripheral IV Urinary Cath still in place: No Reason Cath still needed: other (indicate) (monitor I&O) Assessment/Plan Hospital Course 1. Embolic stroke - brain MRI: showing infarct - Per neurology team, hold off on benzos, continue Seroquel as needed, continue aspirin. 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 pain and fevers. - feedings per ST 2. Hematuria - Hematuria - hold lovenox for now - Suspect from pulled ly catheter. Restrains prn - ly catheter removed 11.17.18 3. Elevated troponins - - signs of non-ST elevation myocardial infarction. - cardiology following - Continue aspirin and Lipitor, Morphine p.r.n., nitroglycerin p.r.n. 4. Renal insufficiency- improved - Monitor renal panel 5. History of hypertension. - Continue to monitor for now. He is on hydralazine p.r.n. 6. History of high cholesterol. - Continue Lipitor. 7. Tracheostomy placement - continue respiratory care 8. Deep venous thrombosis prophylaxis 9. History of gastroesophageal reflux disease -- H2 kendall. DISPO/;PLAN: Awaiting accepting snf. plan for d/c Discussed POC with Dr. Hernandez Result Diagram: 11/18/18 0450 11/18/18 0450 Results 24hrs Laboratory Tests Test 11/18/18 04:50 White Blood Count 8.4 Red Blood Count 3.99 L Hemoglobin 12.6 L Hematocrit 38.5 L Mean Corpuscular Volume 96.5 Mean Corpuscular Hemoglobin 31.6 Mean Corpuscular Hemoglobin Concent 32.7 Red Cell Distribution Width 12.8 Platelet Count 209 Mean Platelet Volume 10.8 H Immature Granulocytes % 0.600 H Neutrophils % 47.9 Lymphocytes % 31.3 Monocytes % 10.9 Eosinophils % 7.8 H Basophils % 1.5 Nucleated Red Blood Cells % 0.0 Immature Granulocytes # 0.050 H Neutrophils # 4.0 Lymphocytes # 2.6 Monocytes # 0.9 Eosinophils # 0.7 H Basophils # 0.1 Nucleated Red Blood Cells # 0.0 Sodium Level 143 Potassium Level 3.8 Chloride Level 107 Carbon Dioxide Level 27 Anion Gap 9 Blood Urea Nitrogen 10 Creatinine 0.58 L Est Glomerular Filtrat Rate mL/min > 60 Glucose Level 88 Calcium Level 9.2 Subjective 24 Hr Interval Summary Free Text/Dictation resting, not anxious, no s/s of distress Exam/Review of Systems Exam Vitals Vital Signs Date Temp Pulse Resp B/P (MAP) Pulse Ox O2 O2 Flow FiO2 Time Delivery Rate 11/18/18 98.9 85 18 94/62 (73) 99 10:42 11/18/18 5.0 10:35 11/18/18 28 08:20 11/18/18 Aerosol 08:20 Intake and Output 11/17/18 11/17/18 11/18/18 1515:00 23:00 07:00 IntakeIntake Total 1340 ml BalanceBalance 1340 ml Exam Constitutional: alert, oriented (alert to person) Neck: other (trach in place) Respiratory: other (no obvious wheezing/rhonchi) Gastrointestinal: other (peg tube in place) Genitourinary - Male: ly catheter removed Extremities: No edema Results Results 24hrs Laboratory Tests Test 11/18/18 04:50 White Blood Count 8.4 Red Blood Count 3.99 L Hemoglobin 12.6 L Hematocrit 38.5 L Mean Corpuscular Volume 96.5 Mean Corpuscular Hemoglobin 31.6 Mean Corpuscular Hemoglobin Concent 32.7 Red Cell Distribution Width 12.8 Platelet Count 209 Mean Platelet Volume 10.8 H Immature Granulocytes % 0.600 H Neutrophils % 47.9 Lymphocytes % 31.3 Monocytes % 10.9 Eosinophils % 7.8 H Basophils % 1.5 Nucleated Red Blood Cells % 0.0 Immature Granulocytes # 0.050 H Neutrophils # 4.0 Lymphocytes # 2.6 Monocytes # 0.9 Eosinophils # 0.7 H Basophils # 0.1 Nucleated Red Blood Cells # 0.0 Sodium Level 143 Potassium Level 3.8 Chloride Level 107 Carbon Dioxide Level 27 Anion Gap 9 Blood Urea Nitrogen 10 Creatinine 0.58 L Est Glomerular Filtrat Rate mL/min > 60 Glucose Level 88 Calcium Level 9.2 Medications Medication Current Medications Naloxone HCl (Narcan) 1 mg Q2M PRN IV LETHARGY Last administered on 11/03/18 07:19; Admin Dose 1 MG; Start 11/03/18 at 07:00 IV Flush (NS 3 ml) 3 ml PER PROTOCOL IV ; Start 11/03/18 at 12:00 Ondansetron HCl (Zofran Inj) 4 mg Q6H PRN IV NAUSEA/VOMITING Last administered on 11/07/18at 17:46; Admin Dose 4 MG; Start 11/03/18 at 12:00 Acetaminophen (Tylenol Tab) 650 mg Q6H PRN PO .PAIN 1-3 OR TEMP Last administered on 11/12/18 08:45; Admin Dose 650 MG; Start 11/03/18 at 12:00 Acetaminophen/ Hydrocodone Bitart ([place] (5/325)) 1 tab Q6H PRN PO .MOD PAIN 4- 6 Last administered on 11/17/18 15:17; Admin Dose 1 TAB; Start 11/03/18 at 12:00 Docusate Sodium (Colace) 100 mg Q12H PRN PO .CONSTIPATION; Start 11/03/18 at 12:00 Magnesium Hydroxide (Milk Of Mag) 30 ml DAILY PRN PO .CONSTIPATION Last administered on 11/07/18at 17:47; Admin Dose 30 ML; Start 11/03/18 at 12:00 Albuterol/ Ipratropium (Duoneb) 3 ml Q4H RESP THERAPY PRN HHN SHORTNESS OF BREATH Last administered on 11/06/18at 05:07; Admin Dose 3 ML; Start 11/03/18 at 12:00 Hydralazine HCl (Apresoline) 10 mg Q6H PRN IV ELEVATED BLOOD PRESSURE; Start 11/03/18 at 12:00 Nitroglycerin (Nitroglycerin (Sl Tab) 0.4 Mg) 1 tab Q5M PRN SL ANGINA; Start 11/03/18 at 12:00 Aspirin (Ecotrin) 325 mg DAILY PO Last administered on 11/18/18 08:38; Admin Dose 325 MG; Start 11/04/18 at 09:00 Ascorbic Acid (Vitamin C) 500 mg DAILY GTB Last administered on 11/18/18 08:38; Admin Dose 500 MG; Start 11/04/18 at 09:00 Atorvastatin Calcium (Lipitor) 80 mg QHS GTB Last administered on 11/17/18 20:25; Admin Dose 80 MG; Start 11/03/18 at 21:00 Bisacodyl (Dulcolax Supp) 10 mg DAILY PRN [place] CONSTIPATION; Start 11/03/18 at 12:00 Chlorhexidine Gluconate (Peridex) 15 ml Q12H MM Last administered on 11/18/18 00:24; Admin Dose 15 ML; Start 11/03/18 at 12:00 Clonidine (Catapres) 0.2 mg Q8H PRN GTB SBP ABOVE 160; Start 11/03/18 at 12:00 Valproate Sodium (Depakene Liquid Cup) 500 mg BID GTB Last administered on 11/18/18 08:38; Admin Dose 500 MG; Start 11/03/18 at 21:00 Zinc Sulfate (Zinc Sulfate) 220 mg DAILY GTB Last administered on 11/18/18 08:39; Admin Dose 220 MG; Start 11/04/18 at 09:00 Lactobacillus Acidophilus/ Rhamnosus (Culturelle) 1 cap DAILY PO Last administered on 11/18/18 08:38; Admin Dose 1 CAP; Start 11/04/18 at 09:00 Multivitamins/ Minerals (Theragran-M) 1 tab DAILY PO Last administered on 11/18/18 08:38; Admin Dose 1 TAB; Start 11/04/18 at 09:00 Gabapentin (Neurontin) 600 mg BID GTB Last administered on 11/18/18 08:39; Admin Dose 600 MG; Start 11/04/18 at 12:00 Risperidone (Risperdal) 2 mg DAILY GTB Last administered on 11/18/18 10:51; Admin Dose 2 MG; Start 11/04/18 at 14:00 Mupirocin (Bactroban) 1 applic BID TOP Last administered on 11/17/18 20:25; Admin Dose 1 APPLIC; Start 11/05/18 at 12:00 Quetiapine Fumarate (Seroquel) 12.5 mg Q8 PRN GTB AGITATION Last administered on 11/17/18 20:26; Admin Dose 12.5 MG; Start 11/06/18 at 11:00 Diphenhydramine HCl (Benadryl) 25 mg Q6H PRN IV ITCHING Last administered on 11/17/18 22:21; Admin Dose 25 MG; Start 11/06/18 at 18:00 Famotidine (Pepcid) 20 mg BID GTB Last administered on 11/18/18 08:38; Admin Dose 20 MG; Start 11/07/18 at 09:00 Lorazepam (Ativan) 1 mg Q6H PRN IV AGITATION Last administered on 11/17/18 17:59; Admin Dose 1 MG; Start 11/15/18 at 20:06 Metoprolol Tartrate (Lopressor) 50 mg BID PO Last administered on 11/18/18 08:39; Admin Dose 50 MG; Start 11/17/18 at 21:00 NICOLE LAN NP Nov 18, 2018 11:55
--- NOTE | 2018-11-18 13:33 | CONS ---
Consult Date/Type/Reason Admit Date/Time November 03, 2018 at 10:30 Initial Consult Date 11/14/18 Type of Consult Pulmonary Requesting Provider: BRANDT RAMÍREZ Date/Time of Note DATE: 11/18/18 TIME: 13:29 Subjective Patient comfortable this morning no respiratory distress. Objective Vital Signs Date Temp Pulse Resp B/P (MAP) Pulse Ox O2 O2 Flow FiO2 Time Delivery Rate 11/18/18 99 5.0 28 13:16 11/18/18 67 16 Aerosol 13:16 11/18/18 98.9 94/62 (73) 10:42 Intake and Output 11/17/18 11/17/18 11/18/18 1515:00 23:00 07:00 IntakeIntake Total 1340 ml BalanceBalance 1340 ml Exam GENERAL: Currently ill-appearing gentleman VITAL SIGNS: per chart NECK: Supple. No JVD or lymphadenopathy. Tracheostomy site clean and intact CARDIAC EXAM: S1, S2. No added sounds or murmurs. CHEST: clear bilaterally, No added sounds, rales or wheezes ABDOMEN: Soft, nontender. No guarding or rebound. EXTREMITIES: No cyanosis, clubbing or edema. NEUROLOGIC: Generalized weakness. Vent Setting Ventilator Support Mode: CPAP Fraction of Inspired Oxygen pe: 28 Positive End Expiratory Pressu: 5.0 Results/Medications Result Diagram: 11/18/1844911/18/18449 Results 24 hrs Laboratory Tests Test 11/18/18 04:50 White Blood Count 8.4 Red Blood Count 3.99 L Hemoglobin 12.6 L Hematocrit 38.5 L Mean Corpuscular Volume 96.5 Mean Corpuscular Hemoglobin 31.6 Mean Corpuscular Hemoglobin Concent 32.7 Red Cell Distribution Width 12.8 Platelet Count 209 Mean Platelet Volume 10.8 H Immature Granulocytes % 0.600 H Neutrophils % 47.9 Lymphocytes % 31.3 Monocytes % 10.9 Eosinophils % 7.8 H Basophils % 1.5 Nucleated Red Blood Cells % 0.0 Immature Granulocytes # 0.050 H Neutrophils # 4.0 Lymphocytes # 2.6 Monocytes # 0.9 Eosinophils # 0.7 H Basophils # 0.1 Nucleated Red Blood Cells # 0.0 Sodium Level 143 Potassium Level 3.8 Chloride Level 107 Carbon Dioxide Level 27 Anion Gap 9 Blood Urea Nitrogen 10 Creatinine 0.58 L Est Glomerular Filtrat Rate mL/min > 60 Glucose Level 88 Calcium Level 9.2 Medications Current Medications Naloxone HCl (Narcan) 1 mg Q2M PRN IV LETHARGY Last administered on 11/03/18 07:19; Admin Dose 1 MG; Start 11/03/18 at 07:00 IV Flush (NS 3 ml) 3 ml PER PROTOCOL IV ; Start 11/03/18 at 12:00 Ondansetron HCl (Zofran Inj) 4 mg Q6H PRN IV NAUSEA/VOMITING Last administered on 11/07/18 17:46; Admin Dose 4 MG; Start 11/03/18 at 12:00 Acetaminophen (Tylenol Tab) 650 mg Q6H PRN PO .PAIN 1-3 OR TEMP Last administered on 11/12/18 08:45; Admin Dose 650 MG; Start 11/03/18 at 12:00 Acetaminophen/ Hydrocodone Bitart ([place] (5/325)) 1 tab Q6H PRN PO .MOD PAIN 4- 6 Last administered on 11/17/18 15:17; Admin Dose 1 TAB; Start 11/03/18 at 12:00 Docusate Sodium (Colace) 100 mg Q12H PRN PO .CONSTIPATION; Start 11/03/18 at 12:00 Magnesium Hydroxide (Milk Of Mag) 30 ml DAILY PRN PO .CONSTIPATION Last administered on 11/07/18 17:47; Admin Dose 30 ML; Start 11/03/18 at 12:00 Albuterol/ Ipratropium (Duoneb) 3 ml Q4H RESP THERAPY PRN HHN SHORTNESS OF BREATH Last administered on 11/06/18 05:07; Admin Dose 3 ML; Start 11/03/18 at 12:00 Hydralazine HCl (Apresoline) 10 mg Q6H PRN IV ELEVATED BLOOD PRESSURE; Start 11/03/18 at 12:00 Nitroglycerin (Nitroglycerin (Sl Tab) 0.4 Mg) 1 tab Q5M PRN SL ANGINA; Start 11/03/18 at 12:00 Aspirin (Ecotrin) 325 mg DAILY PO Last administered on 11/18/18 08:38; Admin Dose 325 MG; Start 11/04/18 at 09:00 Ascorbic Acid (Vitamin C) 500 mg DAILY GTB Last administered on 11/18/18 08:38; Admin Dose 500 MG; Start 11/04/18 at 09:00 Atorvastatin Calcium (Lipitor) 80 mg QHS GTB Last administered on 11/17/18 20:25; Admin Dose 80 MG; Start 11/03/18 at 21:00 Bisacodyl (Dulcolax Supp) 10 mg DAILY PRN [place] CONSTIPATION; Start 11/03/18 at 12:00 Chlorhexidine Gluconate (Peridex) 15 ml Q12H MM Last administered on 11/18/18 00:24; Admin Dose 15 ML; Start 11/03/18 at 12:00 Clonidine (Catapres) 0.2 mg Q8H PRN GTB SBP ABOVE 160; Start 11/03/18 at 12:00 Valproate Sodium (Depakene Liquid Cup) 500 mg BID GTB Last administered on 11/18/18 08:38; Admin Dose 500 MG; Start 11/03/18 at 21:00 Zinc Sulfate (Zinc Sulfate) 220 mg DAILY GTB Last administered on 11/18/18 08:39; Admin Dose 220 MG; Start 11/04/18 at 09:00 Lactobacillus Acidophilus/ Rhamnosus (Culturelle) 1 cap DAILY PO Last administered on 11/18/18 08:38; Admin Dose 1 CAP; Start 11/04/18 at 09:00 Multivitamins/ Minerals (Theragran-M) 1 tab DAILY PO Last administered on 11/18/18 08:38; Admin Dose 1 TAB; Start 11/04/18 at 09:00 Gabapentin (Neurontin) 600 mg BID GTB Last administered on 11/18/18 08:39; Admin Dose 600 MG; Start 11/04/18 at 12:00 Risperidone (Risperdal) 2 mg DAILY GTB Last administered on 11/18/18 10:51; Admin Dose 2 MG; Start 11/04/18 at 14:00 Mupirocin (Bactroban) 1 applic BID TOP Last administered on 11/17/18 20:25; Admin Dose 1 APPLIC; Start 11/05/18 at 12:00 Quetiapine Fumarate (Seroquel) 12.5 mg Q8 PRN GTB AGITATION Last administered on 11/17/18 20:26; Admin Dose 12.5 MG; Start 11/06/18 at 11:00 Diphenhydramine HCl (Benadryl) 25 mg Q6H PRN IV ITCHING Last administered on 11/17/18at 22:21; Admin Dose 25 MG; Start 11/06/18 at 18:00 Famotidine (Pepcid) 20 mg BID GTB Last administered on 11/18/18at 08:38; Admin Dose 20 MG; Start 11/07/18 at 09:00 Lorazepam (Ativan) 1 mg Q6H PRN IV AGITATION Last administered on 11/17/18at 17:59; Admin Dose 1 MG; Start 11/15/18 at 20:06 Metoprolol Tartrate (Lopressor) 50 mg BID PO Last administered on 11/18/18at 08:39; Admin Dose 50 MG; Start 11/17/18 at 21:00 Heparin Sodium (Porcine) (Heparin (5000 Units/1ml)) 5,000 unit BID SC ; Start 11/18/18 at 21:00 Assessment/Plan Hospital Course (Demo Recall) Assessment and recommendations; 1. Patient admitted for hematuria due to UTI with interval improvement. 2. 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 3. 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 4. Chronic dysphagia. 5. Chronic respiratory failure, patient however doing very well on Passy-Isidro valve via tracheostomy. 6. Stable seizure disorder. 7. Gram-positive bacteremia. Likely contaminant . DC planning okay from pulmonary standpoint seroquel 100qd, dc prn order, increase dose as needed. ASIF MARTIN MD, [facility] Nov 18, 2018 13:33
[2018-11-18] MEDS: MUPIROCIN 2% 22 GM OINT TOP SCH ×2 (14:01→20:43)
[2018-11-18] MEDS: QUETIAPINE 100 MG TAB PO SCH (14:04)
--- NOTE | 2018-11-18 14:09 | CONS ---
Assessment/Plan Assessment/Plan Assessment/Plan (Recall) 43 yo M with multiple comorbidities who presents for evaluation of ams in the context of respiratory sx. 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 for which neurology is consulted. The clinical picture raises concern for a cardioembolic process. Vasculitis is less likely. Echo (TTE) is unrevealing. JAKE was without evidence of intracardiac thrombus, though notable for spontaneous contrast and possible slow flow in the LA CTA H/N was only notable for stable L MARNI aneurysm coil LDL 16, ESR 57, RPR neg, HIV neg Protein C and S low P: Cont ASA for secondary stroke prevention; LDL is at goal BP and other medical management per primary [place] as able Limit sedating medications where possible PT/OT/ST when able Will follow clinically Consultation Date/Type/Reason Admit Date/Time November 03, 2018 at 10:30 Type of Consult Neurology Reason for Consultation Strokes Requesting Provider: BRANDT RAMÍREZ Date/Time of Note DATE: 11/18/18 TIME: 14:08 24 HR Interval Summary Free Text/Dictation Continues acute care Exam/Review of Systems Exam Vitals Vital Signs Date Temp Pulse Resp B/P (MAP) Pulse Ox O2 O2 Flow FiO2 Time Delivery Rate 11/18/18 99 5.0 28 13:16 11/18/18 67 16 Aerosol 13:16 11/18/18 98.9 94/62 (73) 10:42 Intake and Output 11/17/18 11/17/18 11/18/18 1515:00 23:00 07:00 IntakeIntake Total 1340 ml BalanceBalance 1340 ml Exam PE: Gen Appearance: No Apparent Distress HEENT: Trached Cardiovascular: Regular rate Abdomen: Soft Extremities: Dry NE: The patient was awake, alert, and mouthing words. Unable to understand d/t trach. The pt was able to follow simple axial and appendicular commands. Cranial nerve examination was limited by mental status. Pupils were equal and reactive to light. There was no afferent pupillary defect. Funduscopic examination was limited. Face was grossly symmetric, w/ present corneal and cough reflexes. Tone was normal. Muscle bulk was normal. I did not see fasciculations. The patient had spontaneous movement of all extremities. Coordination and gait testing was limited by mental status. Arm and leg reflexes were within normal limits and symmetric. Carlson's sign was absent. Plantar responses were flexor. Results Result Diagram: 11/18/18 0450 11/18/18 0450 Results 24hrs Laboratory Tests Test 11/18/18 04:50 White Blood Count 8.4 Red Blood Count 3.99 L Hemoglobin 12.6 L Hematocrit 38.5 L Mean Corpuscular Volume 96.5 Mean Corpuscular Hemoglobin 31.6 Mean Corpuscular Hemoglobin Concent 32.7 Red Cell Distribution Width 12.8 Platelet Count 209 Mean Platelet Volume 10.8 H Immature Granulocytes % 0.600 H Neutrophils % 47.9 Lymphocytes % 31.3 Monocytes % 10.9 Eosinophils % 7.8 H Basophils % 1.5 Nucleated Red Blood Cells % 0.0 Immature Granulocytes # 0.050 H Neutrophils # 4.0 Lymphocytes # 2.6 Monocytes # 0.9 Eosinophils # 0.7 H Basophils # 0.1 Nucleated Red Blood Cells # 0.0 Sodium Level 143 Potassium Level 3.8 Chloride Level 107 Carbon Dioxide Level 27 Anion Gap 9 Blood Urea Nitrogen 10 Creatinine 0.58 L Est Glomerular Filtrat Rate mL/min > 60 Glucose Level 88 Calcium Level 9.2 Medications Medication Current Medications Naloxone HCl (Narcan) 1 mg Q2M PRN IV LETHARGY Last administered on 11/03/18at 07:19; Admin Dose 1 MG; Start 11/03/18 at 07:00 IV Flush (NS 3 ml) 3 ml PER PROTOCOL IV ; Start 11/03/18 at 12:00 Ondansetron HCl (Zofran Inj) 4 mg Q6H PRN IV NAUSEA/VOMITING Last administered on 11/07/18at 17:46; Admin Dose 4 MG; Start 11/03/18 at 12:00 Acetaminophen (Tylenol Tab) 650 mg Q6H PRN PO .PAIN 1-3 OR TEMP Last administered on 11/12/18at 08:45; Admin Dose 650 MG; Start 11/03/18 at 12:00 Acetaminophen/ Hydrocodone Bitart ([place] (5/325)) 1 tab Q6H PRN PO .MOD PAIN 4- 6 Last administered on 11/17/18at 15:17; Admin Dose 1 TAB; Start 11/03/18 at 12:00 Docusate Sodium (Colace) 100 mg Q12H PRN PO .CONSTIPATION; Start 11/03/18 at 12:00 Magnesium Hydroxide (Milk Of Mag) 30 ml DAILY PRN PO .CONSTIPATION Last administered on 11/07/18 17:47; Admin Dose 30 ML; Start 11/03/18 at 12:00 Albuterol/ Ipratropium (Duoneb) 3 ml Q4H RESP THERAPY PRN HHN SHORTNESS OF BREATH Last administered on 11/06/18 05:07; Admin Dose 3 ML; Start 11/03/18 at 12:00 Hydralazine HCl (Apresoline) 10 mg Q6H PRN IV ELEVATED BLOOD PRESSURE; Start 11/03/18 at 12:00 Nitroglycerin (Nitroglycerin (Sl Tab) 0.4 Mg) 1 tab Q5M PRN SL ANGINA; Start 11/03/18 at 12:00 Aspirin (Ecotrin) 325 mg DAILY PO Last administered on 11/18/18 08:38; Admin Dose 325 MG; Start 11/04/18 at 09:00 Ascorbic Acid (Vitamin C) 500 mg DAILY GTB Last administered on 11/18/18 08:38; Admin Dose 500 MG; Start 11/04/18 at 09:00 Atorvastatin Calcium (Lipitor) 80 mg QHS GTB Last administered on 11/17/18 20:25; Admin Dose 80 MG; Start 11/03/18 at 21:00 Bisacodyl (Dulcolax Supp) 10 mg DAILY PRN [place] CONSTIPATION; Start 11/03/18 at 12:00 Chlorhexidine Gluconate (Peridex) 15 ml Q12H MM Last administered on 11/18/18 14:01; Admin Dose 15 ML; Start 11/03/18 at 12:00 Clonidine (Catapres) 0.2 mg Q8H PRN GTB SBP ABOVE 160; Start 11/03/18 at 12:00 Valproate Sodium (Depakene Liquid Cup) 500 mg BID GTB Last administered on 11/18/18 08:38; Admin Dose 500 MG; Start 11/03/18 at 21:00 Zinc Sulfate (Zinc Sulfate) 220 mg DAILY GTB Last administered on 11/18/18 08:39; Admin Dose 220 MG; Start 11/04/18 at 09:00 Lactobacillus Acidophilus/ Rhamnosus (Culturelle) 1 cap DAILY PO Last administered on 11/18/18 08:38; Admin Dose 1 CAP; Start 11/04/18 at 09:00 Multivitamins/ Minerals (Theragran-M) 1 tab DAILY PO Last administered on 08:38; Admin Dose 1 TAB; Start 11/04/18 at 09:00 Gabapentin (Neurontin) 600 mg BID GTB Last administered on 11/18/18 08:39; Admin Dose 600 MG; Start 11/04/18 at 12:00 Risperidone (Risperdal) 2 mg DAILY GTB Last administered on 11/18/18 10:51; Admin Dose 2 MG; Start 11/04/18 at 14:00 Mupirocin (Bactroban) 1 applic BID TOP Last administered on 11/18/18 14:01; Admin Dose 1 APPLIC; Start 11/05/18 at 12:00 Diphenhydramine HCl (Benadryl) 25 mg Q6H PRN IV ITCHING Last administered on 11/17/18 22:21; Admin Dose 25 MG; Start 11/06/18 at 18:00 Famotidine (Pepcid) 20 mg BID GTB Last administered on 11/18/18 08:38; Admin Dose 20 MG; Start 11/07/18 at 09:00 Lorazepam (Ativan) 1 mg Q6H PRN IV AGITATION Last administered on 11/17/18 17:59; Admin Dose 1 MG; Start 11/15/18 at 20:06 Metoprolol Tartrate (Lopressor) 50 mg BID PO Last administered on 11/18/18 08:39; Admin Dose 50 MG; Start 11/17/18 at 21:00 Heparin Sodium (Porcine) (Heparin (5000 Units/1ml)) 5,000 unit BID SC ; Start 11/18/18 at 21:00 Quetiapine Fumarate (Seroquel) 100 mg DAILY PO Last administered on 11/18/18 14:04; Admin Dose 100 MG; Start 11/18/18 at 14:00 MOY BENJAMIN NP Nov 18, 2018 14:09
--- NOTE | 2018-11-18 14:48 | CONS ---
Assessment/Plan Assessment/Plan Hospital Course (Demo Recall) IMPRESSION: 1. Positive troponin/NSTEMI-now downtrended-Echo EF 50-55 11/03 2. Abnormal electrocardiogram with incomplete right bundle branch block. 3. Tachycardia, mild. 4. Chronic respiratory failure, status post tracheostomy. 5. Dysphagia, status post G-tube. 6. History of subarachnoid hemorrhage. 7. History of ventriculoperitoneal shunt. 8. 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 s/p JAKE 11/10 with no definite findings for source of embolus but spontaneous contrast in LA/SENAIT which is a marker for low flow/stasis and thus increased risk for development of thrombus(seen with low EF/AF, etc). NOrmal neck CTA 9. HTN-mildly elevated Recc: -Now on tele -Continue asa/statin -Continue BB with slight increase -Continue to trend cardiac enzymes which are downtrended -would continue to monitor for occult arrythmia(AF) -F/U hypercoag w/u -Lovenox now held due to hematuria Consultation Date/Type/Reason Admit Date/Time November 03, 2018 at 10:30 Initial Consult Date 11/04/18 Type of Consult Cardiology Reason for Consultation Nstemi Requesting Provider: BRANDT RAMÍREZ Date/Time of Note DATE: 11/18/18 TIME: 14:46 Exam/Review of Systems Vital Signs Vitals Vital Signs Date Temp Pulse Resp B/P (MAP) Pulse Ox O2 O2 Flow FiO2 Time Delivery Rate 11/18/18 99 5.0 28 13:16 11/18/18 67 16 Aerosol 13:16 11/18/18 98.9 94/62 (73) 10:42 Intake and Output 11/17/18 11/17/18 11/18/18 1515:00 23:00 07:00 IntakeIntake Total 1340 ml BalanceBalance 1340 ml Exam Exam Review of Systems: CONSTITUTIONAL: No fevers, chills. PULMONARY: No sob CARDIOVASCULAR: No chest pain/palpitations GASTROINTESTINAL: No nausea/vomiting. GENITOURINARY: No hematuria/dysuria. MUSCULOSKELETAL: No myagias/arthalgias. PSYCHIATRIC: The patient denies depression. NEUROLOGIC: No weakness Constitutional: other (sleeping) Psych: no complaints ENMT: mucosa pink and moist Neck: other (trached) Respiratory: diminished breath sounds (at bases/B) Cardiovascular: regular rate and rhythm Gastrointestinal: soft, non-tender Musculoskeletal: muscle tone Extremities: edema Neurological: other (No focal deficits) Labs Result Diagram: 11/18/1844911/18/18449 Results 24hrs Laboratory Tests Test 11/18/18 04:50 White Blood Count 8.4 Red Blood Count 3.99 L Hemoglobin 12.6 L Hematocrit 38.5 L Mean Corpuscular Volume 96.5 Mean Corpuscular Hemoglobin 31.6 Mean Corpuscular Hemoglobin Concent 32.7 Red Cell Distribution Width 12.8 Platelet Count 209 Mean Platelet Volume 10.8 H Immature Granulocytes % 0.600 H Neutrophils % 47.9 Lymphocytes % 31.3 Monocytes % 10.9 Eosinophils % 7.8 H Basophils % 1.5 Nucleated Red Blood Cells % 0.0 Immature Granulocytes # 0.050 H Neutrophils # 4.0 Lymphocytes # 2.6 Monocytes # 0.9 Eosinophils # 0.7 H Basophils # 0.1 Nucleated Red Blood Cells # 0.0 Sodium Level 143 Potassium Level 3.8 Chloride Level 107 Carbon Dioxide Level 27 Anion Gap 9 Blood Urea Nitrogen 10 Creatinine 0.58 L Est Glomerular Filtrat Rate mL/min > 60 Glucose Level 88 Calcium Level 9.2 Medications Medications Current Medications Naloxone HCl (Narcan) 1 mg Q2M PRN IV LETHARGY Last administered on 11/03/18at 07:19; Admin Dose 1 MG; Start 11/03/18 at 07:00 IV Flush (NS 3 ml) 3 ml PER PROTOCOL IV ; Start 11/03/18 at 12:00 Ondansetron HCl (Zofran Inj) 4 mg Q6H PRN IV NAUSEA/VOMITING Last administered on 11/07/18at 17:46; Admin Dose 4 MG; Start 11/03/18 at 12:00 Acetaminophen (Tylenol Tab) 650 mg Q6H PRN PO .PAIN 1-3 OR TEMP Last administered on 11/12/18at 08:45; Admin Dose 650 MG; Start 11/03/18 at 12:00 Acetaminophen/ Hydrocodone Bitart ([place] (5/325)) 1 tab Q6H PRN PO .MOD PAIN 4- 6 Last administered on 11/17/18at 15:17; Admin Dose 1 TAB; Start 11/03/18 at 12:00 Docusate Sodium (Colace) 100 mg Q12H PRN PO .CONSTIPATION; Start 11/03/18 at 12:00 Magnesium Hydroxide (Milk Of Mag) 30 ml DAILY PRN PO .CONSTIPATION Last administered on 11/07/18 17:47; Admin Dose 30 ML; Start 11/03/18 at 12:00 Albuterol/ Ipratropium (Duoneb) 3 ml Q4H RESP THERAPY PRN HHN SHORTNESS OF BREATH Last administered on 11/06/18 05:07; Admin Dose 3 ML; Start 11/03/18 at 12:00 Hydralazine HCl (Apresoline) 10 mg Q6H PRN IV ELEVATED BLOOD PRESSURE; Start 11/03/18 at 12:00 Nitroglycerin (Nitroglycerin (Sl Tab) 0.4 Mg) 1 tab Q5M PRN SL ANGINA; Start 11/03/18 at 12:00 Aspirin (Ecotrin) 325 mg DAILY PO Last administered on 11/18/18 08:38; Admin Dose 325 MG; Start 11/04/18 at 09:00 Ascorbic Acid (Vitamin C) 500 mg DAILY GTB Last administered on 11/18/18 08:38; Admin Dose 500 MG; Start 11/04/18 at 09:00 Atorvastatin Calcium (Lipitor) 80 mg QHS GTB Last administered on 11/17/18 20:25; Admin Dose 80 MG; Start 11/03/18 at 21:00 Bisacodyl (Dulcolax Supp) 10 mg DAILY PRN [place] CONSTIPATION; Start 11/03/18 at 12:00 Chlorhexidine Gluconate (Peridex) 15 ml Q12H MM Last administered on 11/18/18at 1 4:01; Admin Dose 15 ML; Start 11/03/18 at 12:00 Clonidine (Catapres) 0.2 mg Q8H PRN GTB SBP ABOVE 160; Start 11/03/18 at 12:00 Valproate Sodium (Depakene Liquid Cup) 500 mg BID GTB Last administered on 11/18/18 08:38; Admin Dose 500 MG; Start 11/03/18 at 21:00 Zinc Sulfate (Zinc Sulfate) 220 mg DAILY GTB Last administered on 11/18/18 08:39; Admin Dose 220 MG; Start 11/04/18 at 09:00 Lactobacillus Acidophilus/ Rhamnosus (Culturelle) 1 cap DAILY PO Last administered on 11/18/18 08:38; Admin Dose 1 CAP; Start 11/04/18 at 09:00 Multivitamins/ Minerals (Theragran-M) 1 tab DAILY PO Last administered on 11/18/18 08:38; Admin Dose 1 TAB; Start 11/04/18 at 09:00 Gabapentin (Neurontin) 600 mg BID GTB Last administered on 11/18/18 08:39; Admin Dose 600 MG; Start 11/04/18 at 12:00 Risperidone (Risperdal) 2 mg DAILY GTB Last administered on 11/18/18 10:51; Admin Dose 2 MG; Start 11/04/18 at 14:00 Mupirocin (Bactroban) 1 applic BID TOP Last administered on 11/18/18 14:01; Admin Dose 1 APPLIC; Start 11/05/18 at 12:00 Diphenhydramine HCl (Benadryl) 25 mg Q6H PRN IV ITCHING Last administered on 11/17/18 22:21; Admin Dose 25 MG; Start 11/06/18 at 18:00 Famotidine (Pepcid) 20 mg BID GTB Last administered on 11/18/18 08:38; Admin Dose 20 MG; Start 11/07/18 at 09:00 Lorazepam (Ativan) 1 mg Q6H PRN IV AGITATION Last administered on 11/17/18 17:59; Admin Dose 1 MG; Start 11/15/18 at 20:06 Metoprolol Tartrate (Lopressor) 50 mg BID PO Last administered on 11/18/18 08:39; Admin Dose 50 MG; Start 11/17/18 at 21:00 Heparin Sodium (Porcine) (Heparin (5000 Units/1ml)) 5,000 unit BID SC ; Start 11/18/18 at 21:00 Quetiapine Fumarate (Seroquel) 100 mg DAILY PO Last administered on 11/18/18 14:04; Admin Dose 100 MG; Start 11/18/18 at 14:00 NORMAN KESSLER Nov 18, 2018 14:48
[2018-11-18] MEDS ORDERED: LORAZEPAM 2 MG INJ IV STA (17:09)
[2018-11-18] MEDS: DIPHENHYDRAMINE 50 MG INJ IV PRN (19:54)
[2018-11-18] MEDS: ATORVASTATIN 40 MG TAB GTB SCH (20:41)
[2018-11-18] MEDS: HEPARIN 5,000 UNIT/1 ML VIAL SC SCH (20:45)
[2018-11-19] MEDS: CHLORHEXIDINE GLUCONATE 15 ML UD CUP MM SCH ×2 (00:45→12:05)
[2018-11-19 03:29] VITALS: BP 118/58; PULSE 53; RESP 17
[2018-11-19] MEDS: LORAZEPAM 2 MG INJ IV PRN (03:46)
[2018-11-19] MEDS: QUETIAPINE 100 MG TAB PO SCH (08:41)
[2018-11-19] MEDS: FAMOTIDINE 20 MG TAB GTB SCH ×2 (08:41→20:55)
[2018-11-19] MEDS: ZINC SULFATE 220 MG CAP GTB SCH (08:41)
[2018-11-19] MEDS: ASCORBIC ACID 500 MG TAB GTB SCH (08:41)
[2018-11-19] MEDS: RISPERIDONE 2 MG TAB GTB SCH (08:41)
[2018-11-19] MEDS: ASPIRIN (EC) 325 MG TAB PO SCH (08:41)
[2018-11-19] MEDS: LACTOBACILLUS RHAMNOSUS CAP PO SCH (08:41)
[2018-11-19] MEDS: GABAPENTIN 300 MG CAP GTB SCH ×2 (08:41→20:55)
[2018-11-19] MEDS: VALPROIC ACID LIQUID CUP 250 MG/5 ML CUP GTB SCH ×2 (08:42→21:10)
[2018-11-19] MEDS: MULTIVITAMINS/MINERALS TAB PO SCH (08:42)
[2018-11-19] MEDS: METOPROLOL 25 MG TAB PO SCH ×2 (08:43→20:56)
[2018-11-19] MEDS: HEPARIN 5,000 UNIT/1 ML VIAL SC SCH ×2 (08:48→21:02)
[2018-11-19 08:59] VITALS: BP 120/73; PULSE 60; RESP 19
[2018-11-19] MEDS: MUPIROCIN 2% 22 GM OINT TOP SCH ×2 (12:04→20:56)
--- NOTE | 2018-11-19 12:35 | PN ---
Date/Time of Note Date/Time of Note DATE: 11/19/18 TIME: 12:33 Assessment/Plan VTE Prophylaxis Risk score (from Ns)>0 risk: 7 SCD applied (from [facility]): Yes Pharmacological prophylaxis: NA/contraindicated Pharm contraindication: other (had hematuria) Lines/Catheters IV Catheter Type (from [facility] [place] Urinary Cath still in place: No Assessment/Plan Hospital Course 1. Embolic stroke - brain MRI: showing infarct - Per neurology team, hold off on benzos, continue Seroquel as needed, continue aspirin. 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 pain and fevers. - feedings per ST 2. Hematuria - Hematuria - hold lovenox for now - Suspect from pulled ly catheter. Restrains prn - ly catheter removed 11.17.18 3. Elevated troponins - - signs of non-ST elevation myocardial infarction. - cardiology following - Continue aspirin and Lipitor, Morphine p.r.n., nitroglycerin p.r.n. 4. Renal insufficiency- improved - Monitor renal panel 5. History of hypertension. - Continue to monitor for now. He is on hydralazine p.r.n. 6. History of high cholesterol. - Continue Lipitor. 7. Tracheostomy placement - continue respiratory care 8. Deep venous thrombosis prophylaxis 9. History of gastroesophageal reflux disease -- H2 [place]. DISPO/;PLAN: dc planning to snf in progress. continue current tx. Awaiting accepting snf Discussed POC with Dr. Hernandez Result Diagram: 11/19/18 0432 11/19/18 0432 Results 24hrs Laboratory Tests Test 11/19/18 04:32 White Blood Count 7.1 Red Blood Count 3.80 L Hemoglobin 11.8 L Hematocrit 35.9 L Mean Corpuscular Volume 94.5 Mean Corpuscular Hemoglobin 31.1 Mean Corpuscular Hemoglobin Concent 32.9 Red Cell Distribution Width 13.1 Platelet Count 235 Mean Platelet Volume 10.4 Immature Granulocytes % 0.700 H Neutrophils % 35.5 L Lymphocytes % 35.3 Monocytes % 11.9 H Eosinophils % 14.9 H Basophils % 1.7 Nucleated Red Blood Cells % 0.0 Immature Granulocytes # 0.050 H Neutrophils # 2.5 Lymphocytes # 2.5 Monocytes # 0.9 Eosinophils # 1.1 H Basophils # 0.1 Nucleated Red Blood Cells # 0.0 Sodium Level 143 Potassium Level 3.6 Chloride Level 103 Carbon Dioxide Level 31 Anion Gap 9 Blood Urea Nitrogen 11 Creatinine 0.70 Est Glomerular Filtrat Rate mL/min > 60 Glucose Level 85 Calcium Level 9.0 Subjective 24 Hr Interval Summary Free Text/Dictation Family at bedside. No signs of distress. Exam/Review of Systems Exam Vitals Vital Signs Date Temp Pulse Resp B/P (MAP) Pulse Ox O2 O2 Flow FiO2 Time Delivery Rate 11/19/18 98.3 60 19 120/73 99 Room Air 08:59 (89) 11/19/18 5.0 28 04:36 Intake and Output 11/18/18 11/18/18 11/19/18 1515:00 23:00 07:00 IntakeIntake Total 740 ml 580 ml OutputOutput Total 800 ml BalanceBalance 740 ml -220 ml Exam Constitutional: alert, oriented (alert to person) Neck: other (trach in place) Respiratory: other (no obvious wheezing/rhonchi) Gastrointestinal: other (peg tube in place) Genitourinary - Male: ly catheter removed Extremities: No edema Results Results 24hrs Laboratory Tests Test 11/19/18 04:32 White Blood Count 7.1 Red Blood Count 3.80 L Hemoglobin 11.8 L Hematocrit 35.9 L Mean Corpuscular Volume 94.5 Mean Corpuscular Hemoglobin 31.1 Mean Corpuscular Hemoglobin Concent 32.9 Red Cell Distribution Width 13.1 Platelet Count 235 Mean Platelet Volume 10.4 Immature Granulocytes % 0.700 H Neutrophils % 35.5 L Lymphocytes % 35.3 Monocytes % 11.9 H Eosinophils % 14.9 H Basophils % 1.7 Nucleated Red Blood Cells % 0.0 Immature Granulocytes # 0.050 H Neutrophils # 2.5 Lymphocytes # 2.5 Monocytes # 0.9 Eosinophils # 1.1 H Basophils # 0.1 Nucleated Red Blood Cells # 0.0 Sodium Level 143 Potassium Level 3.6 Chloride Level 103 Carbon Dioxide Level 31 Anion Gap 9 Blood Urea Nitrogen 11 Creatinine 0.70 Est Glomerular Filtrat Rate mL/min > 60 Glucose Level 85 Calcium Level 9.0 Medications Medication Current Medications Naloxone HCl (Narcan) 1 mg Q2M PRN IV LETHARGY Last administered on 11/03/18 07:19; Admin Dose 1 MG; Start 11/03/18 at 07:00 IV Flush (NS 3 ml) 3 ml PER PROTOCOL IV ; Start 11/03/18 at 12:00 Ondansetron HCl (Zofran Inj) 4 mg Q6H PRN IV NAUSEA/VOMITING Last administered on 11/07/18at 17:46; Admin Dose 4 MG; Start 11/03/18 at 12:00 Acetaminophen (Tylenol Tab) 650 mg Q6H PRN PO .PAIN 1-3 OR TEMP Last administered on 11/12/18 08:45; Admin Dose 650 MG; Start 11/03/18 at 12:00 Acetaminophen/ Hydrocodone Bitart ([place] (5/325)) 1 tab Q6H PRN PO .MOD PAIN 4- 6 Last administered on 11/17/18 15:17; Admin Dose 1 TAB; Start 11/03/18 at 12:00 Docusate Sodium (Colace) 100 mg Q12H PRN PO .CONSTIPATION; Start 11/03/18 at 12:00 Magnesium Hydroxide (Milk Of Mag) 30 ml DAILY PRN PO .CONSTIPATION Last administered on 11/07/18 17:47; Admin Dose 30 ML; Start 11/03/18 at 12:00 Albuterol/ Ipratropium (Duoneb) 3 ml Q4H RESP THERAPY PRN HHN SHORTNESS OF BREATH Last administered on 11/06/18at 05:07; Admin Dose 3 ML; Start 11/03/18 at 12:00 Hydralazine HCl (Apresoline) 10 mg Q6H PRN IV ELEVATED BLOOD PRESSURE; Start 11/03/18 at 12:00 Nitroglycerin (Nitroglycerin (Sl Tab) 0.4 Mg) 1 tab Q5M PRN SL ANGINA; Start 11/03/18 at 12:00 Aspirin (Ecotrin) 325 mg DAILY PO Last administered on 11/19/18 08:41; Admin Dose 325 MG; Start 11/04/18 at 09:00 Ascorbic Acid (Vitamin C) 500 mg DAILY GTB Last administered on 11/19/18 08:41; Admin Dose 500 MG; Start 11/04/18 at 09:00 Atorvastatin Calcium (Lipitor) 80 mg QHS GTB Last administered on 11/18/18 20:41; Admin Dose 80 MG; Start 11/03/18 at 21:00 Bisacodyl (Dulcolax Supp) 10 mg DAILY PRN [place] CONSTIPATION; Start 11/03/18 at 12:00 Chlorhexidine Gluconate (Peridex) 15 ml Q12H MM Last administered on 11/19/18 12:05; Admin Dose 15 ML; Start 11/03/18 at 12:00 Clonidine (Catapres) 0.2 mg Q8H PRN GTB SBP ABOVE 160; Start 11/03/18 at 12:00 Valproate Sodium (Depakene Liquid Cup) 500 mg BID GTB Last administered on 11/19/18 08:42; Admin Dose 500 MG; Start 11/03/18 at 21:00 Zinc Sulfate (Zinc Sulfate) 220 mg DAILY GTB Last administered on 11/19/18 08:41; Admin Dose 220 MG; Start 11/04/18 at 09:00 Lactobacillus Acidophilus/ Rhamnosus (Culturelle) 1 cap DAILY PO Last ad ministered on 11/19/18 08:41; Admin Dose 1 CAP; Start 11/04/18 at 09:00 Multivitamins/ Minerals (Theragran-M) 1 tab DAILY PO Last administered on 11/19/18 08:42; Admin Dose 1 TAB; Start 11/04/18 at 09:00 Gabapentin (Neurontin) 600 mg BID GTB Last administered on 11/19/18 08:41; Admin Dose 600 MG; Start 11/04/18 at 12:00 Risperidone (Risperdal) 2 mg DAILY GTB Last administered on 11/19/18 08:41; Admin Dose 2 MG; Start 11/04/18 at 14:00 Mupirocin (Bactroban) 1 applic BID TOP Last administered on 11/19/18 12:04; Admin Dose 1 APPLIC; Start 11/05/18 at 12:00 Diphenhydramine HCl (Benadryl) 25 mg Q6H PRN IV ITCHING Last administered on 11/18/18 19:54; Admin Dose 25 MG; Start 11/06/18 at 18:00 Famotidine (Pepcid) 20 mg BID GTB Last administered on 11/19/18 08:41; Admin Dose 20 MG; Start 11/07/18 at 09:00 Lorazepam (Ativan) 1 mg Q6H PRN IV AGITATION Last administered on 11/19/18 03:46; Admin Dose 1 MG; Start 11/15/18 at 20:06 Metoprolol Tartrate (Lopressor) 50 mg BID PO Last administered on 11/19/18 08:43; Admin Dose 50 MG; Start 11/17/18 at 21:00 Heparin Sodium (Porcine) (Heparin (5000 Units/1ml)) 5,000 unit BID SC Last administered on 11/19/18 08:48; Admin Dose 5,000 UNIT; Start 11/18/18 at 21:00 Quetiapine Fumarate (Seroquel) 100 mg DAILY PO Last administered on 11/19/18 08:41; Admin Dose 100 MG; Start 11/18/18 at 14:00 NICOLE LAN NP Nov 19, 2018 12:35
--- NOTE | 2018-11-19 13:04 | CONS ---
Assessment/Plan Assessment/Plan Assessment/Plan (Recall) 43 yo M with multiple comorbidities who presents for evaluation of ams in the context of respiratory sx. 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 for which neurology is consulted. The clinical picture raises concern for a cardioembolic process. Vasculitis is less likely. Echo (TTE) is unrevealing. JAKE was without evidence of intracardiac thrombus, though notable for spontaneous contrast and possible slow flow in the LA CTA H/N was only notable for stable L MARNI aneurysm coil LDL 16, ESR 57, RPR neg, HIV neg Protein C and S low P: Cont ASA for secondary stroke prevention; LDL is at goal BP and other medical management per primary [place] as able Limit sedating medications where possible PT/OT/ST when able Will follow clinically Consultation Date/Type/Reason Admit Date/Time November 03, 2018 at 10:30 Type of Consult Neurology Reason for Consultation Strokes Requesting Provider: BRANDT RAMÍREZ Date/Time of Note DATE: 11/19/18 TIME: 13:01 24 HR Interval Summary Free Text/Dictation Continues acute care Exam/Review of Systems Exam Vitals Vital Signs Date Temp Pulse Resp B/P (MAP) Pulse Ox O2 O2 Flow FiO2 Time Delivery Rate 11/19/18 98.3 60 19 120/73 99 Room Air 08:59 (89) 11/19/18 5.0 28 04:36 Intake and Output 11/18/18 11/18/18 11/19/18 1515:00 23:00 07:00 IntakeIntake Total 740 ml 580 ml OutputOutput Total 800 ml BalanceBalance 740 ml -220 ml Exam Comprehensive complete; stable from prior. Results Result Diagram: 11/19/18 0432 11/19/18 0432 Results 24hrs Laboratory Tests Test 11/19/18 04:32 White Blood Count 7.1 Red Blood Count 3.80 L Hemoglobin 11.8 L Hematocrit 35.9 L Mean Corpuscular Volume 94.5 Mean Corpuscular Hemoglobin 31.1 Mean Corpuscular Hemoglobin Concent 32.9 Red Cell Distribution Width 13.1 Platelet Count 235 Mean Platelet Volume 10.4 Immature Granulocytes % 0.700 H Neutrophils % 35.5 L Lymphocytes % 35.3 Monocytes % 11.9 H Eosinophils % 14.9 H Basophils % 1.7 Nucleated Red Blood Cells % 0.0 Immature Granulocytes # 0.050 H Neutrophils # 2.5 Lymphocytes # 2.5 Monocytes # 0.9 Eosinophils # 1.1 H Basophils # 0.1 Nucleated Red Blood Cells # 0.0 Sodium Level 143 Potassium Level 3.6 Chloride Level 103 Carbon Dioxide Level 31 Anion Gap 9 Blood Urea Nitrogen 11 Creatinine 0.70 Est Glomerular Filtrat Rate mL/min > 60 Glucose Level 85 Calcium Level 9.0 Medications Medication Current Medications Naloxone HCl (Narcan) 1 mg Q2M PRN IV LETHARGY Last administered on 11/03/18 07:19; Admin Dose 1 MG; Start 11/03/18 at 07:00 IV Flush (NS 3 ml) 3 ml PER PROTOCOL IV ; Start 11/03/18 at 12:00 Ondansetron HCl (Zofran Inj) 4 mg Q6H PRN IV NAUSEA/VOMITING Last administered on 11/07/18 17:46; Admin Dose 4 MG; Start 11/03/18 at 12:00 Acetaminophen (Tylenol Tab) 650 mg Q6H PRN PO .PAIN 1-3 OR TEMP Last administered on 11/12/18 08:45; Admin Dose 650 MG; Start 11/03/18 at 12:00 Acetaminophen/ Hydrocodone Bitart ([place] (5/325)) 1 tab Q6H PRN PO .MOD PAIN 4- 6 Last administered on 11/17/18 15:17; Admin Dose 1 TAB; Start 11/03/18 at 12:00 Docusate Sodium (Colace) 100 mg Q12H PRN PO .CONSTIPATION; Start 11/03/18 at 12:00 Magnesium Hydroxide (Milk Of Mag) 30 ml DAILY PRN PO .CONSTIPATION Last administered on 11/07/18at 17:47; Admin Dose 30 ML; Start 11/03/18 at 12:00 Albuterol/ Ipratropium (Duoneb) 3 ml Q4H RESP THERAPY PRN HHN SHORTNESS OF BREATH Last administered on 11/06/18 05:07; Admin Dose 3 ML; Start 11/03/18 at 12:00 Hydralazine HCl (Apresoline) 10 mg Q6H PRN IV ELEVATED BLOOD PRESSURE; Start 11/03/18 at 12:00 Nitroglycerin (Nitroglycerin (Sl Tab) 0.4 Mg) 1 tab Q5M PRN SL ANGINA; Start 11/03/18 at 12:00 Aspirin (Ecotrin) 325 mg DAILY PO Last administered on 11/19/18 08:41; Admin Dose 325 MG; Start 11/04/18 at 09:00 Ascorbic Acid (Vitamin C) 500 mg DAILY GTB Last administered on 11/19/18 08:41; Admin Dose 500 MG; Start 11/04/18 at 09:00 Atorvastatin Calcium (Lipitor) 80 mg QHS GTB Last administered on 11/18/18 20:41; Admin Dose 80 MG; Start 11/03/18 at 21:00 Bisacodyl (Dulcolax Supp) 10 mg DAILY PRN [place] CONSTIPATION; Start 11/03/18 at 12:00 Chlorhexidine Gluconate (Peridex) 15 ml Q12H MM Last administered on 11/19/18 12:05; Admin Dose 15 ML; Start 11/03/18 at 12:00 Clonidine (Catapres) 0.2 mg Q8H PRN GTB SBP ABOVE 160; Start 11/03/18 at 12:00 Valproate Sodium (Depakene Liquid Cup) 500 mg BID GTB Last administered on 11/19/18 08:42; Admin Dose 500 MG; Start 11/03/18 at 21:00 Zinc Sulfate (Zinc Sulfate) 220 mg DAILY GTB Last administered on 11/19/18 08:41; Admin Dose 220 MG; Start 11/04/18 at 09:00 Lactobacillus Acidophilus/ Rhamnosus (Culturelle) 1 cap DAILY PO Last administered on 11/19/18 08:41; Admin Dose 1 CAP; Start 11/04/18 at 09:00 Multivitamins/ Minerals (Theragran-M) 1 tab DAILY PO Last administered on 11/19/18 08:42; Admin Dose 1 TAB; Start 11/04/18 at 09:00 Gabapentin (Neurontin) 600 mg BID GTB Last administered on 11/19/18 08:41; Admin Dose 600 MG; Start 11/04/18 at 12:00 Risperidone (Risperdal) 2 mg DAILY GTB Last administered on 11/19/18 08:41; Admin Dose 2 MG; Start 11/04/18 at 14:00 Mupirocin (Bactroban) 1 applic BID TOP Last administered on 6/8/19at 12:04; Admin Dose 1 APPLIC; Start 11/05/18 at 12:00 Diphenhydramine HCl (Benadryl) 25 mg Q6H PRN IV ITCHING Last administered on 11/18/18 19:54; Admin Dose 25 MG; Start 11/06/18 at 18:00 Famotidine (Pepcid) 20 mg BID GTB Last administered on 11/19/18 08:41; Admin Dose 20 MG; Start 11/07/18 at 09:00 Lorazepam (Ativan) 1 mg Q6H PRN IV AGITATION Last administered on 11/19/18 03:46; Admin Dose 1 MG; Start 11/15/18 at 20:06 Metoprolol Tartrate (Lopressor) 50 mg BID PO Last administered on 11/19/18 0 8:43; Admin Dose 50 MG; Start 11/17/18 at 21:00 Heparin Sodium (Porcine) (Heparin (5000 Units/1ml)) 5,000 unit BID SC Last administered on 11/19/18 08:48; Admin Dose 5,000 UNIT; Start 11/18/18 at 21:00 Quetiapine Fumarate (Seroquel) 100 mg DAILY PO Last administered on 11/19/18 08:41; Admin Dose 100 MG; Start 11/18/18 at 14:00 ISA CRUM Nov 19, 2018 13:04
[2018-11-19 14:20] VITALS: BP 108/66; PULSE 62; RESP 18
--- NOTE | 2018-11-19 14:24 | CONS ---
Assessment/Plan Assessment/Plan Hospital Course (Demo Recall) IMPRESSION: 1. Positive troponin/NSTEMI-now downtrended-Echo EF 50-55 11/03 2. Abnormal electrocardiogram with incomplete right bundle branch block. 3. Tachycardia, mild. 4. Chronic respiratory failure, status post tracheostomy. 5. Dysphagia, status post G-tube. 6. History of subarachnoid hemorrhage. 7. History of ventriculoperitoneal shunt. 8. 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 s/p JAKE 11/10 with no definite findings for source of embolus but spontaneous contrast in LA/SENAIT which is a marker for low flow/stasis and thus increased risk for development of thrombus(seen with low EF/AF, etc). NOrmal neck CTA 9. HTN-mildly elevated Recc: -Now on tele -Continue asa/statin -Continue BB with slight increase -Continue to trend cardiac enzymes which are downtrended -F/U hypercoag w/u -Lovenox now held due to hematuria Consultation Date/Type/Reason Admit Date/Time November 03, 2018 at 10:30 Initial Consult Date 11/04/18 Type of Consult Cardiology Reason for Consultation Nstemi Requesting Provider: BRANDT RAMÍREZ Date/Time of Note DATE: 11/19/18 TIME: 14:22 Exam/Review of Systems Vital Signs Vitals Vital Signs Date Temp Pulse Resp B/P (MAP) Pulse Ox O2 O2 Flow FiO2 Time Delivery Rate 11/19/18 97.6 62 18 108/66 98 Room Air 14:20 (80) 11/19/18 5.0 28 04:36 Intake and Output 11/18/18 11/18/18 11/19/18 1515:00 23:00 07:00 IntakeIntake Total 740 ml 580 ml OutputOutput Total 800 ml BalanceBalance 740 ml -220 ml Exam Exam Review of Systems: CONSTITUTIONAL: No fevers, chills. PULMONARY: No sob CARDIOVASCULAR: No chest pain/palpitations GASTROINTESTINAL: No nausea/vomiting. GENITOURINARY: No hematuria/dysuria. MUSCULOSKELETAL: No myagias/arthalgias. PSYCHIATRIC: The patient denies depression. NEUROLOGIC: No weakness Constitutional: other (sleeping) Psych: no complaints Head: normocephalic ENMT: mucosa pink and moist Neck: supple, jvd (9 cm water) Respiratory: diminished breath sounds (at bases/B) Cardiovascular: regular rate and rhythm Gastrointestinal: soft, non-tender Musculoskeletal: muscle tone (normal) Extremities: edema (none) Neurological: other (NO focal deficits) Labs Result Diagram: 11/19/1843111/19/182 Results 24hrs Laboratory Tests Test 11/19/18 04:32 White Blood Count 7.1 Red Blood Count 3.80 L Hemoglobin 11.8 L Hematocrit 35.9 L Mean Corpuscular Volume 94.5 Mean Corpuscular Hemoglobin 31.1 Mean Corpuscular Hemoglobin Concent 32.9 Red Cell Distribution Width 13.1 Platelet Count 235 Mean Platelet Volume 10.4 Immature Granulocytes % 0.700 H Neutrophils % 35.5 L Lymphocytes % 35.3 Monocytes % 11.9 H Eosinophils % 14.9 H Basophils % 1.7 Nucleated Red Blood Cells % 0.0 Immature Granulocytes # 0.050 H Neutrophils # 2.5 Lymphocytes # 2.5 Monocytes # 0.9 Eosinophils # 1.1 H Basophils # 0.1 Nucleated Red Blood Cells # 0.0 Sodium Level 143 Potassium Level 3.6 Chloride Level 103 Carbon Dioxide Level 31 Anion Gap 9 Blood Urea Nitrogen 11 Creatinine 0.70 Est Glomerular Filtrat Rate mL/min > 60 Glucose Level 85 Calcium Level 9.0 Medications Medications Current Medications Naloxone HCl (Narcan) 1 mg Q2M PRN IV LETHARGY Last administered on 11/03/18at 07:19; Admin Dose 1 MG; Start 11/03/18 at 07:00 IV Flush (NS 3 ml) 3 ml PER PROTOCOL IV ; Start 11/03/18 at 12:00 Ondansetron HCl (Zofran Inj) 4 mg Q6H PRN IV NAUSEA/VOMITING Last administered on 11/07/18at 17:46; Admin Dose 4 MG; Start 11/03/18 at 12:00 Acetaminophen (Tylenol Tab) 650 mg Q6H PRN PO .PAIN 1-3 OR TEMP Last administered on 11/12/18at 08:45; Admin Dose 650 MG; Start 11/03/18 at 12:00 Acetaminophen/ Hydrocodone Bitart ([place] (5/325)) 1 tab Q6H PRN PO .MOD PAIN 4- 6 Last administered on 11/17/18at 15:17; Admin Dose 1 TAB; Start 11/03/18 at 12:00 Docusate Sodium (Colace) 100 mg Q12H PRN PO .CONSTIPATION; Start 11/03/18 at 12:00 Magnesium Hydroxide (Milk Of Mag) 30 ml DAILY PRN PO .CONSTIPATION Last administered on 11/07/18 17:47; Admin Dose 30 ML; Start 11/03/18 at 12:00 Albuterol/ Ipratropium (Duoneb) 3 ml Q4H RESP THERAPY PRN HHN SHORTNESS OF BREATH Last administered on 11/06/18 05:07; Admin Dose 3 ML; Start 11/03/18 at 12:00 Hydralazine HCl (Apresoline) 10 mg Q6H PRN IV ELEVATED BLOOD PRESSURE; Start 11/03/18 at 12:00 Nitroglycerin (Nitroglycerin (Sl Tab) 0.4 Mg) 1 tab Q5M PRN SL ANGINA; Start 11/03/18 at 12:00 Aspirin (Ecotrin) 325 mg DAILY PO Last administered on 11/19/18 08:41; Admin Dose 325 MG; Start 11/04/18 at 09:00 Ascorbic Acid (Vitamin C) 500 mg DAILY GTB Last administered on 11/19/18 08:41; Admin Dose 500 MG; Start 11/04/18 at 09:00 Atorvastatin Calcium (Lipitor) 80 mg QHS GTB Last administered on 11/18/18 20:41; Admin Dose 80 MG; Start 11/03/18 at 21:00 Bisacodyl (Dulcolax Supp) 10 mg DAILY PRN [place] CONSTIPATION; Start 11/03/18 at 12:00 Chlorhexidine Gluconate (Peridex) 15 ml Q12H MM Last administered on 11/19/18 12:05; Admin Dose 15 ML; Start 11/03/18 at 12:00 Clonidine (Catapres) 0.2 mg Q8H PRN GTB SBP ABOVE 160; Start 11/03/18 at 12:00 Valproate Sodium (Depakene Liquid Cup) 500 mg BID GTB Last administered on 11/19/18 08:42; Admin Dose 500 MG; Start 11/03/18 at 21:00 Zinc Sulfate (Zinc Sulfate) 220 mg DAILY GTB Last administered on 11/19/18 08:41; Admin Dose 220 MG; Start 11/04/18 at 09:00 Lactobacillus Acidophilus/ Rhamnosus (Culturelle) 1 cap DAILY PO Last administered on 11/19/18 08:41; Admin Dose 1 CAP; Start 11/04/18 at 09:00 Multivitamins/ Minerals (Theragran-M) 1 tab DAILY PO Last administered on 11/19/18 08:42; Admin Dose 1 TAB; Start 11/04/18 at 09:00 Gabapentin (Neurontin) 600 mg BID GTB Last administered on 11/19/18 08:41; Admin Dose 600 MG; Start 11/04/18 at 12:00 Risperidone (Risperdal) 2 mg DAILY GTB Last administered on 11/19/18 08:41; Admin Dose 2 MG; Start 11/04/18 at 14:00 Mupirocin (Bactroban) 1 applic BID TOP Last administered on 11/19/18 12:04; Admin Dose 1 APPLIC; Start 11/05/18 at 12:00 Diphenhydramine HCl (Benadryl) 25 mg Q6H PRN IV ITCHING Last administered on 11/18/18 19:54; Admin Dose 25 MG; Start 11/06/18 at 18:00 Famotidine (Pepcid) 20 mg BID GTB Last administered on 11/19/18 08:41; Admin Dose 20 MG; Start 11/07/18 at 09:00 Lorazepam (Ativan) 1 mg Q6H PRN IV AGITATION Last administered on 11/19/18 03:46; Admin Dose 1 MG; Start 11/15/18 at 20:06 Metoprolol Tartrate (Lopressor) 50 mg BID PO Last administered on 11/19/18 08:43; Admin Dose 50 MG; Start 11/17/18 at 21:00 Heparin Sodium (Porcine) (Heparin (5000 Units/1ml)) 5,000 unit BID SC Last administered on 11/19/18 08:48; Admin Dose 5,000 UNIT; Start 11/18/18 at 21:00 Quetiapine Fumarate (Seroquel) 100 mg DAILY PO Last administered on 11/19/18 08:41; Admin Dose 100 MG; Start 11/18/18 at 14:00 NORMAN KESSLER Nov 19, 2018 14:24
[2018-11-19 20:28] VITALS: BP 120/75; PULSE 72; RESP 18
[2018-11-19] MEDS: ATORVASTATIN 40 MG TAB GTB SCH (20:55)
[2018-11-20] MEDS: LORAZEPAM 2 MG INJ IV PRN ×4 (00:43→23:58)
[2018-11-20 02:01] VITALS: BP 102/58; PULSE 57; RESP 18
[2018-11-20 08:00] VITALS: BP 101/56; PULSE 56; RESP 18
[2018-11-20] MEDS: METOPROLOL 25 MG TAB PO SCH ×2 (09:00→21:11)
[2018-11-20] MEDS: LACTOBACILLUS RHAMNOSUS CAP PO SCH (09:17)
[2018-11-20] MEDS: ASPIRIN (EC) 325 MG TAB PO SCH (09:17)
[2018-11-20] MEDS: RISPERIDONE 2 MG TAB GTB SCH (09:19)
[2018-11-20] MEDS: QUETIAPINE 100 MG TAB PO SCH (09:19)
[2018-11-20] MEDS: ZINC SULFATE 220 MG CAP GTB SCH (09:19)
[2018-11-20] MEDS: GABAPENTIN 300 MG CAP GTB SCH ×2 (09:19→21:10)
[2018-11-20] MEDS: ASCORBIC ACID 500 MG TAB GTB SCH (09:19)
[2018-11-20] MEDS: MULTIVITAMINS/MINERALS TAB PO SCH (09:19)
[2018-11-20] MEDS: FAMOTIDINE 20 MG TAB GTB SCH ×2 (09:19→21:10)
[2018-11-20] MEDS: HEPARIN 5,000 UNIT/1 ML VIAL SC SCH ×2 (09:20→21:17)
[2018-11-20] MEDS: VALPROIC ACID LIQUID CUP 250 MG/5 ML CUP GTB SCH ×2 (09:22→21:10)
[2018-11-20] MEDS: MUPIROCIN 2% 22 GM OINT TOP SCH ×2 (09:40→21:21)
--- NOTE | 2018-11-20 10:47 | PN ---
Date/Time of Note Date/Time of Note DATE: 11/20/18 TIME: 10:38 Assessment/Plan VTE Prophylaxis Risk score (from Ns)>0 risk: 4 SCD applied (from Ns): Yes Pharmacological prophylaxis: heparin Lines/Catheters IV Catheter Type (from Nrs): Peripheral IV Urinary Cath still in place: Yes Reason Cath still needed: other (indicate) (monitor I&O) Assessment/Plan Hospital Course 1. Embolic stroke - brain MRI: showing infarct - Per neurology team, hold off on benzos, continue Seroquel as needed, continue aspirin. 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 pain and fevers. - feedings per ST 2. Hematuria - Hematuria - hold lovenox for now - Suspect from pulled ly catheter. Restrains prn - ly catheter removed 11.17.18 3. Elevated troponins - - signs of non-ST elevation myocardial infarction. - cardiology following - Continue aspirin and Lipitor, Morphine p.r.n., nitroglycerin p.r.n. 4. Renal insufficiency- improved - Monitor renal panel 5. History of hypertension. - Continue to monitor for now. He is on hydralazine p.r.n. 6. History of high cholesterol. - Continue Lipitor. 7. Tracheostomy placement - continue respiratory care 8. Deep venous thrombosis prophylaxis 9. History of gastroesophageal reflux disease -- H2 k[place]. DISPO/;PLAN: dc planning to snf in progress. Awaiting accepting snf. Check AM la sonia Discussed POC with Dr. Hernandez Result Diagram: 11/19/18 0432 11/19/18 043 Subjective 24 Hr Interval Summary Free Text/Dictation resting at this time. not combative. no s/s of distress Exam/Review of Systems Exam Vitals Vital Signs Date Temp Pulse Resp B/P (MAP) Pulse Ox O2 O2 Flow FiO2 Time Delivery Rate 11/20/18 98 Aerosol 5.0 28 09:23 11/20/18 98.0 56 18 101/56 08:00 (71) Intake and Output 11/19/18 11/19/18 11/20/18 1515:00 23:00 07:00 IntakeIntake Total 240 ml 200 ml OutputOutput Total 350 ml BalanceBalance 240 ml -150 ml Exam Constitutional: alert, oriented (alert to person) Neck: other (trach in place) Respiratory: other (no obvious wheezing/rhonchi) Gastrointestinal: other (peg tube in place) Genitourinary - Male: ly catheter removed Extremities: No edema Medications Medication Current Medications Naloxone HCl (Narcan) 1 mg Q2M PRN IV LETHARGY Last administered on 11/03/18at 07:19; Admin Dose 1 MG; Start 11/03/18 at 07:00 IV Flush (NS 3 ml) 3 ml PER PROTOCOL IV ; Start 11/03/18 at 12:00 Ondansetron HCl (Zofran Inj) 4 mg Q6H PRN IV NAUSEA/VOMITING Last administered on 11/07/18at 17:46; Admin Dose 4 MG; Start 11/03/18 at 12:00 Acetaminophen (Tylenol Tab) 650 mg Q6H PRN PO .PAIN 1-3 OR TEMP Last administered on 11/12/18at 08:45; Admin Dose 650 MG; Start 11/03/18 at 12:00 Acetaminophen/ Hydrocodone Bitart ([place] (5/325)) 1 tab Q6H PRN PO .MOD PAIN 4- 6 Last administered on 11/17/18at 15:17; Admin Dose 1 TAB; Start 11/03/18 at 12:00 Docusate Sodium (Colace) 100 mg Q12H PRN PO .CONSTIPATION; Start 11/03/18 at 12:00 Magnesium Hydroxide (Milk Of Mag) 30 ml DAILY PRN PO .CONSTIPATION Last administered on 11/07/18at 17:47; Admin Dose 30 ML; Start 11/03/18 at 12:00 Albuterol/ Ipratropium (Duoneb) 3 ml Q4H RESP THERAPY PRN HHN SHORTNESS OF BREATH Last administered on 11/06/18at 05:07; Admin Dose 3 ML; Start 11/03/18 at 12:00 Hydralazine HCl (Apresoline) 10 mg Q6H PRN IV ELEVATED BLOOD PRESSURE; Start 11/03/18 at 12:00 Nitroglycerin (Nitroglycerin (Sl Tab) 0.4 Mg) 1 tab Q5M PRN SL ANGINA; Start 11/03/18 at 12:00 Aspirin (Ecotrin) 325 mg DAILY PO Last administered on 11/20/18 09:17; Admin Dose 325 MG; Start 11/04/18 at 09:00 Ascorbic Acid (Vitamin C) 500 mg DAILY GTB Last administered on 11/20/18 09:19; Admin Dose 500 MG; Start 11/04/18 at 09:00 Atorvastatin Calcium (Lipitor) 80 mg QHS GTB Last administered on 11/19/18 20:55; Admin Dose 80 MG; Start 11/03/18 at 21:00 Bisacodyl (Dulcolax Supp) 10 mg DAILY PRN [place] CONSTIPATION; Start 11/03/18 at 12:00 Chlorhexidine Gluconate (Peridex) 15 ml Q12H MM Last administered on 11/19/18 12:05; Admin Dose 15 ML; Start 11/03/18 at 12:00 Clonidine (Catapres) 0.2 mg Q8H PRN GTB SBP ABOVE 160; Start 11/03/18 at 12:00 Valproate Sodium (Depakene Liquid Cup) 500 mg BID GTB Last administered on 11/20/18 09:22; Admin Dose 500 MG; Start 11/03/18 at 21:00 Zinc Sulfate (Zinc Sulfate) 220 mg DAILY GTB Last administered on 11/20/18 09:; Admin Dose 220 MG; Start 11/04/18 at 09:00 Lactobacillus Acidophilus/ Rhamnosus (Culturelle) 1 cap DAILY PO Last administered on 11/20/18 09:17; Admin Dose 1 CAP; Start 11/04/18 at 09:00 Multivitamins/ Minerals (Theragran-M) 1 tab DAILY PO Last administered on 11/20/18 09:19; Admin Dose 1 TAB; Start 11/04/18 at 09:00 Gabapentin (Neurontin) 600 mg BID GTB Last administered on 11/20/18 09:19; Admin Dose 600 MG; Start 11/04/18 at 12:00 Risperidone (Risperdal) 2 mg DAILY GTB Last administered on 11/20/18 09:19; Admin Dose 2 MG; Start 11/04/18 at 14:00 Mupirocin (Bactroban) 1 applic BID TOP Last administered on 11/20/18 09:40; Admin Dose 1 APPLIC; Start 11/05/18 at 12:00 Diphenhydramine HCl (Benadryl) 25 mg Q6H PRN IV ITCHING Last administered on 11/18/18 19:54; Admin Dose 25 MG; Start 11/06/18 at 18:00 Famotidine (Pepcid) 20 mg BID GTB Last administered on 11/20/18 09:19; Admin Dose 20 MG; Start 11/07/18 at 09:00 Lorazepam (Ativan) 1 mg Q6H PRN IV AGITATION Last administered on 11/20/18 09:40; Admin Dose 1 MG; Start 11/15/18 at 20:06 Metoprolol Tartrate (Lopressor) 50 mg BID PO Last administered on 11/19/18 20:56; Admin Dose 50 MG; Start 11/17/18 at 21:00 Heparin Sodium (Porcine) (Heparin (5000 Units/1ml)) 5,000 unit BID SC Last administered on 11/20/18 09:20; Admin Dose 5,000 UNIT; Start 11/18/18 at 21:00 Quetiapine Fumarate (Seroquel) 100 mg DAILY PO Last administered on 11/20/18 09:19; Admin Dose 100 MG; Start 11/18/18 at 14:00 NICOLE LAN NP Nov 20, 2018 10:47
--- NOTE | 2018-11-20 11:09 | CONS ---
Assessment/Plan Assessment/Plan Assessment/Plan (Recall) 43 yo M with multiple comorbidities who presents for evaluation of ams in the context of respiratory sx. 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 for which neurology is consulted. The clinical picture raises concern for a cardioembolic process. Vasculitis is less likely. Echo (TTE) is unrevealing. JAKE was without evidence of intracardiac thrombus, though notable for spontaneous contrast and possible slow flow in the LA CTA H/N was only notable for stable L MARNI aneurysm coil LDL 16, ESR 57, RPR neg, HIV neg Protein C and S low P: Cont ASA for secondary stroke prevention; LDL is at goal BP and other medical management per primary [place] as able Limit sedating medications where possible PT/OT/ST when able Will follow clinically Consultation Date/Type/Reason Admit Date/Time November 03, 2018 at 10:30 Type of Consult Neurology Reason for Consultation Strokes Requesting Provider: BRANDT RAMÍREZ Date/Time of Note DATE: 11/20/18 TIME: 11:09 24 HR Interval Summary Free Text/Dictation Continues acute care Exam/Review of Systems Exam Vitals Vital Signs Date Temp Pulse Resp B/P (MAP) Pulse Ox O2 O2 Flow FiO2 Time Delivery Rate 11/20/18 98 Aerosol 5.0 28 09:23 11/20/18 98.0 56 18 101/56 08:00 (71) Intake and Output 11/19/18 11/19/18 11/20/18 1515:00 23:00 07:00 IntakeIntake Total 240 ml 200 ml OutputOutput Total 350 ml BalanceBalance 240 ml -150 ml Results Result Diagram: 11/19/18 0432 11/19/18 0432 Medications Medication Current Medications Naloxone HCl (Narcan) 1 mg Q2M PRN IV LETHARGY Last administered on 11/03/18at 07:19; Admin Dose 1 MG; Start 11/03/18 at 07:00 IV Flush (NS 3 ml) 3 ml PER PROTOCOL IV ; Start 11/03/18 at 12:00 Ondansetron HCl (Zofran Inj) 4 mg Q6H PRN IV NAUSEA/VOMITING Last administered on 11/07/18at 17:46; Admin Dose 4 MG; Start 11/03/18 at 12:00 Acetaminophen (Tylenol Tab) 650 mg Q6H PRN PO .PAIN 1-3 OR TEMP Last ad ministered on 11/12/18at 08:45; Admin Dose 650 MG; Start 11/03/18 at 12:00 Acetaminophen/ Hydrocodone Bitart ([place] (5/325)) 1 tab Q6H PRN PO .MOD PAIN 4- 6 Last administered on 11/17/18at 15:17; Admin Dose 1 TAB; Start 11/03/18 at 12:00 Docusate Sodium (Colace) 100 mg Q12H PRN PO .CONSTIPATION; Start 11/03/18 at 12:00 Magnesium Hydroxide (Milk Of Mag) 30 ml DAILY PRN PO .CONSTIPATION Last administered on 11/07/18at 17:47; Admin Dose 30 ML; Start 11/03/18 at 12:00 Albuterol/ Ipratropium (Duoneb) 3 ml Q4H RESP THERAPY PRN HHN SHORTNESS OF BREATH Last administered on 11/06/18at 05:07; Admin Dose 3 ML; Start 11/03/18 at 12:00 Hydralazine HCl (Apresoline) 10 mg Q6H PRN IV ELEVATED BLOOD PRESSURE; Start 11/03/18 at 12:00 Nitroglycerin (Nitroglycerin (Sl Tab) 0.4 Mg) 1 tab Q5M PRN SL ANGINA; Start 11/03/18 at 12:00 Aspirin (Ecotrin) 325 mg DAILY PO Last administered on 11/20/18at 09:17; Admin Do se 325 MG; Start 11/04/18 at 09:00 Ascorbic Acid (Vitamin C) 500 mg DAILY GTB Last administered on 11/20/18 09:19; Admin Dose 500 MG; Start 11/04/18 at 09:00 Atorvastatin Calcium (Lipitor) 80 mg QHS GTB Last administered on 11/19/18at 20:55; Admin Dose 80 MG; Start 11/03/18 at 21:00 Bisacodyl (Dulcolax Supp) 10 mg DAILY PRN [place] CONSTIPATION; Start 11/03/18 at 12:00 Chlorhexidine Gluconate (Peridex) 15 ml Q12H MM Last administered on 11/19/18at 12:05; Admin Dose 15 ML; Start 11/03/18 at 12:00 Clonidine (Catapres) 0.2 mg Q8H PRN GTB SBP ABOVE 160; Start 11/03/18 at 12:00 Valproate Sodium (Depakene Liquid Cup) 500 mg BID GTB Last administered on 11/20/18 09:22; Admin Dose 500 MG; Start 11/03/18 at 21:00 Zinc Sulfate (Zinc Sulfate) 220 mg DAILY GTB Last administered on 11/20/18:19; Admin Dose 220 MG; Start 11/04/18 at 09:00 Lactobacillus Acidophilus/ Rhamnosus (Culturelle) 1 cap DAILY PO Last administered on 11/20/18 09:17; Admin Dose 1 CAP; Start 11/04/18 at 09:00 Multivitamins/ Minerals (Theragran-M) 1 tab DAILY PO Last administered on 11/20/18; Admin Dose 1 TAB; Start 11/04/18 at 09:00 Gabapentin (Neurontin) 600 mg BID GTB Last administered on 11/20/18 09:; Admin Dose 600 MG; Start 11/04/18 at 12:00 Risperidone (Risperdal) 2 mg DAILY GTB Last administered on 11/20/18 09:19; Admin Dose 2 MG; Start 11/04/18 at 14:00 Mupirocin (Bactroban) 1 applic BID TOP Last administered on 11/20/18 09:40; Admin Dose 1 APPLIC; Start 11/05/18 at 12:00 Diphenhydramine HCl (Benadryl) 25 mg Q6H PRN IV ITCHING Last administered on 11/18/18 19:54; Admin Dose 25 MG; Start 11/06/18 at 18:00 Famotidine (Pepcid) 20 mg BID GTB Last administered on 11/20/18 09:19; Admin Dose 20 MG; Start 11/07/18 at 09:00 Lorazepam (Ativan) 1 mg Q6H PRN IV AGITATION Last administered on 11/20/18 09:40; Admin Dose 1 MG; Start 11/15/18 at 20:06 Metoprolol Tartrate (Lopressor) 50 mg BID PO Last administered on 11/19/18 20:56; Admin Dose 50 MG; Start 11/17/18 at 21:00 Heparin Sodium (Porcine) (Heparin (5000 Units/1ml)) 5,000 unit BID SC Last administered on 6/9/19at 09:20; Admin Dose 5,000 UNIT; Start 11/18/18 at 21:00 Quetiapine Fumarate (Seroquel) 100 mg DAILY PO Last administered on 11/20/18at 09:19; Admin Dose 100 MG; Start 11/18/18 at 14:00 ISA CRUM Nov 20, 2018 11:09
[2018-11-20 12:00] VITALS: BP 95/57; PULSE 66; RESP 20
[2018-11-20] MEDS: CHLORHEXIDINE GLUCONATE 15 ML UD CUP MM SCH ×2 (12:00)
--- NOTE | 2018-11-20 14:55 | CONS ---
Assessment/Plan Assessment/Plan Hospital Course (Demo Recall) IMPRESSION: 1. Positive troponin/NSTEMI-now downtrended-Echo EF 50-55 11/03 2. Abnormal electrocardiogram with incomplete right bundle branch block. 3. Tachycardia, mild. 4. Chronic respiratory failure, status post tracheostomy. 5. Dysphagia, status post G-tube. 6. History of subarachnoid hemorrhage. 7. History of ventriculoperitoneal shunt. 8. 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 s/p JAKE 11/10 with no definite findings for source of embolus but spontaneous contrast in LA/SENAIT which is a marker for low flow/stasis and thus increased risk for development of thrombus(seen with low EF/AF, etc). NOrmal neck CTA 9. HTN-Today BP now on the lower end Recc: -Now on med-surg -Continue asa/statin -Continue BB with slight decrease and follow clsoely -Continue to trend cardiac enzymes which are downtrended -limit sedation and follow MS closely -F/U hypercoag w/u -Lovenox now held due to hematuria Consultation Date/Type/Reason Admit Date/Time November 03, 2018 at 10:30 Initial Consult Date 11/04/18 Type of Consult Cardiology Reason for Consultation Nstemi Requesting Provider: BRANDT RAMÍREZ Date/Time of Note DATE: 11/20/18 TIME: 14:53 Exam/Review of Systems Vital Signs Vitals Vital Signs Date Temp Pulse Resp B/P (MAP) Pulse Ox O2 O2 Flow FiO2 Time Delivery Rate 11/20/18 Aerosol 5.0 28 13:20 T Tube 11/20/18 97.8 66 20 95/57 (70) 98 12:00 Intake and Output 11/19/18 11/19/18 11/20/18 1515:00 23:00 07:00 IntakeIntake Total 240 ml 200 ml OutputOutput Total 350 ml BalanceBalance 240 ml -150 ml Exam Exam Review of Systems: CONSTITUTIONAL: No fevers, chills. PULMONARY: No sob CARDIOVASCULAR: No chest pain/palpitations GASTROINTESTINAL: No nausea/vomiting. GENITOURINARY: No hematuria/dysuria. MUSCULOSKELETAL: No myagias/arthalgias. PSYCHIATRIC: The patient denies depression. NEUROLOGIC: lethargic Psych: no complaints Head: normocephalic ENMT: mucosa pink and moist Neck: jvd (8 cm water), other (trached) Respiratory: clear to auscultation Cardiovascular: regular rate and rhythm Gastrointestinal: soft, non-tender Musculoskeletal: muscle tone (normal) Extremities: edema (none) Neurological: lethargic Labs Result Diagram: 11/19/1843111/19/18431 Medications Medications Current Medications Naloxone HCl (Narcan) 1 mg Q2M PRN IV LETHARGY Last administered on 11/03/18at 07:19; Admin Dose 1 MG; Start 11/03/18 at 07:00 IV Flush (NS 3 ml) 3 ml PER PROTOCOL IV ; Start 11/03/18 at 12:00 Ondansetron HCl (Zofran Inj) 4 mg Q6H PRN IV NAUSEA/VOMITING Last administered on 11/07/18at 17:46; Admin Dose 4 MG; Start 11/03/18 at 12:00 Acetaminophen (Tylenol Tab) 650 mg Q6H PRN PO .PAIN 1-3 OR TEMP Last administered on 11/12/18at 08:45; Admin Dose 650 MG; Start 11/03/18 at 12:00 Acetaminophen/ Hydrocodone Bitart ([place] (5/325)) 1 tab Q6H PRN PO .MOD PAIN 4- 6 Last administered on 11/17/18at 15:17; Admin Dose 1 TAB; Start 11/03/18 at 12:00 Docusate Sodium (Colace) 100 mg Q12H PRN PO .CONSTIPATION; Start 11/03/18 at 12:00 Magnesium Hydroxide (Milk Of Mag) 30 ml DAILY PRN PO .CONSTIPATION Last administered on 11/07/18at 17:47; Admin Dose 30 ML; Start 11/03/18 at 12:00 Albuterol/ Ipratropium (Duoneb) 3 ml Q4H RESP THERAPY PRN HHN SHORTNESS OF BREATH Last administered on 11/06/18at 05:07; Admin Dose 3 ML; Start 11/03/18 at 12:00 Hydralazine HCl (Apresoline) 10 mg Q6H PRN IV ELEVATED BLOOD PRESSURE; Start 11/03/18 at 12:00 Nitroglycerin (Nitroglycerin (Sl Tab) 0.4 Mg) 1 tab Q5M PRN SL ANGINA; Start 11/03/18 at 12:00 Aspirin (Ecotrin) 325 mg DAILY PO Last administered on 11/20/18 09:17; Admin Dose 325 MG; Start 11/04/18 at 09:00 Ascorbic Acid (Vitamin C) 500 mg DAILY GTB Last administered on 11/20/18 09:19; Admin Dose 500 MG; Start 11/04/18 at 09:00 Atorvastatin Calcium (Lipitor) 80 mg QHS GTB Last administered on 11/19/18 20:55; Admin Dose 80 MG; Start 11/03/18 at 21:00 Bisacodyl (Dulcolax Supp) 10 mg DAILY PRN [place] CONSTIPATION; Start 11/03/18 at 12:00 Chlorhexidine Gluconate (Peridex) 15 ml Q12H MM Last administered on 11/20/18 12:00; Admin Dose 15 ML; Start 11/03/18 at 12:00 Clonidine (Catapres) 0.2 mg Q8H PRN GTB SBP ABOVE 160; Start 11/03/18 at 12:00 Valproate Sodium (Depakene Liquid Cup) 500 mg BID GTB Last administered on 11/20/18 09:22; Admin Dose 500 MG; Start 11/03/18 at 21:00 Zinc Sulfate (Zinc Sulfate) 220 mg DAILY GTB Last administered on 11/20/18:; Admin Dose 220 MG; Start 11/04/18 at 09:00 Lactobacillus Acidophilus/ Rhamnosus (Culturelle) 1 cap DAILY PO Last administ ered on 11/20/18 09:17; Admin Dose 1 CAP; Start 11/04/18 at 09:00 Multivitamins/ Minerals (Theragran-M) 1 tab DAILY PO Last administered on 11/20/18 09:19; Admin Dose 1 TAB; Start 11/04/18 at 09:00 Gabapentin (Neurontin) 600 mg BID GTB Last administered on 11/20/18 09:19; Admin Dose 600 MG; Start 11/04/18 at 12:00 Risperidone (Risperdal) 2 mg DAILY GTB Last administered on 11/20/18 09:19; Admin Dose 2 MG; Start 11/04/18 at 14:00 Mupirocin (Bactroban) 1 applic BID TOP Last administered on 11/20/18 09:40; Admin Dose 1 APPLIC; Start 11/05/18 at 12:00 Diphenhydramine HCl (Benadryl) 25 mg Q6H PRN IV ITCHING Last administered on 11/18/18 19:54; Admin Dose 25 MG; Start 11/06/18 at 18:00 Famotidine (Pepcid) 20 mg BID GTB Last administered on 11/20/18 09:19; Admin Dose 20 MG; Start 11/07/18 at 09:00 Lorazepam (Ativan) 1 mg Q6H PRN IV AGITATION Last administered on 11/20/18 09:40; Admin Dose 1 MG; Start 11/15/18 at 20:06 Metoprolol Tartrate (Lopressor) 50 mg BID PO Last administered on 11/19/18 20:56; Admin Dose 50 MG; Start 11/17/18 at 21:00 Heparin Sodium (Porcine) (Heparin (5000 Units/1ml)) 5,000 unit BID SC Last administered on 11/20/18 09:20; Admin Dose 5,000 UNIT; Start 11/18/18 at 21:00 Quetiapine Fumarate (Seroquel) 100 mg DAILY PO Last administered on 11/20/18 09:19; Admin Dose 100 MG; Start 11/18/18 at 14:00 NORMAN KESSLER Nov 20, 2018 14:55
[2018-11-20 16:00] VITALS: BP 107/66; PULSE 63; RESP 20
[2018-11-20 19:44] VITALS: BP 118/72; PULSE 71; RESP 18
[2018-11-20] MEDS: ATORVASTATIN 40 MG TAB GTB SCH (21:10)
[2018-11-21] MEDS: CHLORHEXIDINE GLUCONATE 15 ML UD CUP MM SCH ×3 (01:08→23:23)
[2018-11-21 02:10] VITALS: BP 96/55; PULSE 52; RESP 17
[2018-11-21 02:50] VITALS: BP 96/55; PULSE 52; RESP 17
[2018-11-21] MEDS: LORAZEPAM 2 MG INJ IV PRN ×3 (07:03→20:53)
[2018-11-21 07:39] VITALS: BP 112/73; PULSE 66; RESP 18
[2018-11-21] MEDS: METOPROLOL 25 MG TAB PO SCH ×2 (09:00→21:35)
[2018-11-21] MEDS: MUPIROCIN 2% 22 GM OINT TOP SCH ×2 (09:28→21:34)
[2018-11-21] MEDS: ASPIRIN (EC) 325 MG TAB PO SCH (09:28)
[2018-11-21] MEDS: ASCORBIC ACID 500 MG TAB GTB SCH (09:28)
[2018-11-21] MEDS: VALPROIC ACID LIQUID CUP 250 MG/5 ML CUP GTB SCH ×2 (09:28→21:34)
[2018-11-21] MEDS: MULTIVITAMINS/MINERALS TAB PO SCH (09:29)
[2018-11-21] MEDS: GABAPENTIN 300 MG CAP GTB SCH ×2 (09:29→21:35)
[2018-11-21] MEDS: LACTOBACILLUS RHAMNOSUS CAP PO SCH (09:29)
[2018-11-21] MEDS: QUETIAPINE 100 MG TAB PO SCH (09:30)
[2018-11-21] MEDS: FAMOTIDINE 20 MG TAB GTB SCH ×2 (09:30→21:35)
[2018-11-21] MEDS: RISPERIDONE 2 MG TAB GTB SCH (09:30)
[2018-11-21] MEDS: ZINC SULFATE 220 MG CAP GTB SCH (09:31)
[2018-11-21] MEDS: HEPARIN 5,000 UNIT/1 ML VIAL SC SCH ×2 (09:34→21:37)
--- NOTE | 2018-11-21 11:33 | CONS ---
Assessment/Plan Assessment/Plan Assessment/Plan (Recall) 43 yo M with multiple comorbidities who presents for evaluation of ams in the context of respiratory sx. 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 for which neurology is consulted. The clinical picture raises concern for a cardioembolic process. Vasculitis is less likely. Echo (TTE) is unrevealing. JAKE was without evidence of intracardiac thrombus, though notable for spontaneous contrast and possible slow flow in the LA CTA H/N was only notable for stable L MARNI aneurysm coil LDL 16, ESR 57, RPR neg, HIV neg Protein C and S low P: Cont ASA for secondary stroke prevention; LDL is at goal BP and other medical management per primary [place] as able Limit sedating medications where possible PT/OT/ST when able Will follow clinically Consultation Date/Type/Reason Admit Date/Time November 03, 2018 at 10:30 Type of Consult Neurology Reason for Consultation Strokes Requesting Provider: BRANDT RAMÍREZ Date/Time of Note DATE: 11/21/18 TIME: 11:33 24 HR Interval Summary Free Text/Dictation Continues acute care Exam/Review of Systems Exam Vitals Vital Signs Date Temp Pulse Resp B/P (MAP) Pulse Ox O2 O2 Flow FiO2 Time Delivery Rate 11/21/18 98.0 66 18 112/73 99 Trach 07:39 (86) Collar 11/21/18 5.0 28 06:02 Intake and Output 11/20/18 11/20/18 11/21/18 1515:00 23:00 07:00 IntakeIntake Total 800 ml 560 ml 650 ml OutputOutput Total 175 ml 575 ml 252 ml BalanceBalance 625 ml -15 ml 398 ml Results Result Diagram: 11/21/18 0453 11/21/18 0453 Results 24hrs Laboratory Tests Test 11/21/18 04:53 White Blood Count 8.0 Red Blood Count 3.99 L Hemoglobin 12.3 L Hematocrit 37.5 L Mean Corpuscular Volume 94.0 Mean Corpuscular Hemoglobin 30.8 Mean Corpuscular Hemoglobin Concent 32.8 Red Cell Distribution Width 12.9 Platelet Count 212 Mean Platelet Volume 10.3 Immature Granulocytes % 0.400 Neutrophils % 42.3 Lymphocytes % 37.5 Monocytes % 10.0 Eosinophils % 8.3 H Basophils % 1.5 Nucleated Red Blood Cells % 0.0 Immature Granulocytes # 0.030 Neutrophils # 3.4 Lymphocytes # 3.0 H Monocytes # 0.8 Eosinophils # 0.7 H Basophils # 0.1 Nucleated Red Blood Cells # 0.0 Sodium Level 143 Potassium Level 3.7 Chloride Level 103 Carbon Dioxide Level 31 Anion Gap 9 Blood Urea Nitrogen 12 Creatinine 0.84 Est Glomerular Filtrat Rate mL/min > 60 Glucose Level 97 Calcium Level 9.3 Medications Medication Current Medications Naloxone HCl (Narcan) 1 mg Q2M PRN IV LETHARGY Last administered on 11/03/18 07:19; Admin Dose 1 MG; Start 11/03/18 at 07:00 IV Flush (NS 3 ml) 3 ml PER PROTOCOL IV ; Start 11/03/18 at 12:00 Ondansetron HCl (Zofran Inj) 4 mg Q6H PRN IV NAUSEA/VOMITING Last administered on 11/07/18at 17:46; Admin Dose 4 MG; Start 11/03/18 at 12:00 Acetaminophen (Tylenol Tab) 650 mg Q6H PRN PO .PAIN 1-3 OR TEMP Last administered on 11/12/18at 08:45; Admin Dose 650 MG; Start 11/03/18 at 12:00 Acetaminophen/ Hydrocodone Bitart ([place] (5/325)) 1 tab Q6H PRN PO .MOD PAIN 4- 6 Last administered on 11/17/18 15:17; Admin Dose 1 TAB; Start 11/03/18 at 12:00 Docusate Sodium (Colace) 100 mg Q12H PRN PO .CONSTIPATION; Start 11/03/18 at 12:00 Magnesium Hydroxide (Milk Of Mag) 30 ml DAILY PRN PO .CONSTIPATION Last administered on 11/07/18 17:47; Admin Dose 30 ML; Start 11/03/18 at 12:00 Albuterol/ Ipratropium (Duoneb) 3 ml Q4H RESP THERAPY PRN HHN SHORTNESS OF BREATH Last administered on 11/06/18 05:07; Admin Dose 3 ML; Start 11/03/18 at 12:00 Hydralazine HCl (Apresoline) 10 mg Q6H PRN IV ELEVATED BLOOD PRESSURE; Start 11/03/18 at 12:00 Nitroglycerin (Nitroglycerin (Sl Tab) 0.4 Mg) 1 tab Q5M PRN SL ANGINA; Start 11/03/18 at 12:00 Ascorbic Acid (Vitamin C) 500 mg DAILY GTB Last administered on 11/21/18 09:28; Admin Dose 500 MG; Start 11/04/18 at 09:00 Atorvastatin Calcium (Lipitor) 80 mg QHS GTB Last administered on 11/20/18 21:10; Admin Dose 80 MG; Start 11/03/18 at 21:00 Bisacodyl (Dulcolax Supp) 10 mg DAILY PRN [place] CONSTIPATION; Start 11/03/18 at 12:00 Chlorhexidine Gluconate (Peridex) 15 ml Q12H MM Last administered on 11/20/18 12:00; Admin Dose 15 ML; Start 11/03/18 at 12:00 Clonidine (Catapres) 0.2 mg Q8H PRN GTB SBP ABOVE 160; Start 11/03/18 at 12:00 Valproate Sodium (Depakene Liquid Cup) 500 mg BID GTB Last administered on 11/21/18 09:28; Admin Dose 500 MG; Start 11/03/18 at 21:00 Zinc Sulfate (Zinc Sulfate) 220 mg DAILY GTB Last administered on 11/21/18 09:31; Admin Dose 220 MG; Start 11/04/18 at 09:00 Lactobacillus Acidophilus/ Rhamnosus (Culturelle) 1 cap DAILY PO Last administered on 11/21/18 09:29; Admin Dose 1 CAP; Start 11/04/18 at 09:00 Multivitamins/ Minerals (Theragran-M) 1 tab DAILY PO Last administered on 11/21/18 09:29; Admin Dose 1 TAB; Start 11/04/18 at 09:00 Gabapentin (Neurontin) 600 mg BID GTB Last administered on 11/21/18 09:29; Admin Dose 600 MG; Start 11/04/18 at 12:00 Risperidone (Risperdal) 2 mg DAILY GTB Last administered on 11/21/18 09:30; Admin Dose 2 MG; Start 11/04/18 at 14:00 Mupirocin (Bactroban) 1 applic BID TOP Last administered on 11/21/18 09:28; Admin Dose 1 APPLIC; Start 11/05/18 at 12:00 Diphenhydramine HCl (Benadryl) 25 mg Q6H PRN IV ITCHING Last administered on 11/18/18 19:54; Admin Dose 25 MG; Start 11/06/18 at 18:00 Famotidine (Pepcid) 20 mg BID GTB Last administered on 11/21/18 09:30; Admin Dose 20 MG; Start 11/07/18 at 09:00 Lorazepam (Ativan) 1 mg Q6H PRN IV AGITATION Last administered on 11/21/18 07:03; Admin Dose 1 MG; Start 11/15/18 at 20:06 Heparin Sodium (Porcine) (Heparin (5000 Units/1ml)) 5,000 unit BID SC Last administered on 11/21/18 09:34; Admin Dose 5,000 UNIT; Start 11/18/18 at 21:00 Quetiapine Fumarate (Seroquel) 100 mg DAILY PO Last administered on 11/21/18 09:30; Admin Dose 100 MG; Start 11/18/18 at 14:00 Metoprolol Tartrate (Lopressor) 25 mg BID PO Last administered on 11/20/18 21:11; Admin Dose 25 MG; Start 11/20/18 at 21:00 Aspirin (Aspirin) 325 mg DAILY PO ; Start 11/22/18 at 09:00 ISA CRUM Nov 21, 2018 11:33
--- NOTE | 2018-11-21 11:48 | PN ---
Date/Time of Note Date/Time of Note DATE: 11/21/18 TIME: 11:36 Assessment/Plan VTE Prophylaxis Risk score (from Ns)>0 risk: 2 SCD applied (from Ns): Yes Pharmacological prophylaxis: heparin Lines/Catheters IV [facility]from [facility] Peripheral IV Urinary Cath still in place: No Assessment/Plan Assessment/Plan 1. Acute embolic stroke - remains stable - Neurology consultation appreciated. continue on Aspirin. 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 Hematuria - resolved - no noted episodes - H/H remains stable 3. FELECIA - resolved 4. Elevated troponins - Cardiology on board - no noted chest pain - downtrending 5. HTN - stable 6. HLD - on statin 7. Chronic respiratory failure - trach in place - continue respiratory care 8. GERD - H2 [place] 9. Disposition - Remains medically stable. Does have moments of restlessness but off physical restraints. Pending SNF placement Result Diagram: 11/21/18 0453 11/21/18 0453 Results 24hrs Laboratory Tests Test 11/21/18 04:53 White Blood Count 8.0 Red Blood Count 3.99 L Hemoglobin 12.3 L Hematocrit 37.5 L Mean Corpuscular Volume 94.0 Mean Corpuscular Hemoglobin 30.8 Mean Corpuscular Hemoglobin Concent 32.8 Red Cell Distribution Width 12.9 Platelet Count 212 Mean Platelet Volume 10.3 Immature Granulocytes % 0.400 Neutrophils % 42.3 Lymphocytes % 37.5 Monocytes % 10.0 Eosinophils % 8.3 H Basophils % 1.5 Nucleated Red Blood Cells % 0.0 Immature Granulocytes # 0.030 Neutrophils # 3.4 Lymphocytes # 3.0 H Monocytes # 0.8 Eosinophils # 0.7 H Basophils # 0.1 Nucleated Red Blood Cells # 0.0 Sodium Level 143 Potassium Level 3.7 Chloride Level 103 Carbon Dioxide Level 31 Anion Gap 9 Blood Urea Nitrogen 12 Creatinine 0.84 Est Glomerular Filtrat Rate mL/min > 60 Glucose Level 97 Calcium Level 9.3 Subjective 24 Hr Interval Summary Free Text/Dictation Patient having moments of confusions but following simple commands. Asking for water. Denies any issues. Exam/Review of Systems Exam Vitals Vital Signs Date Temp Pulse Resp B/P (MAP) Pulse Ox O2 O2 Flow FiO2 Time Delivery Rate 11/21/18 98.0 66 18 112/73 99 Trach 07:39 (86) Collar 11/21/18 5.0 28 06:02 Intake and Output 11/20/18 11/20/18 11/21/18 1515:00 23:00 07:00 IntakeIntake Total 800 ml 560 ml 650 ml OutputOutput Total 175 ml 575 ml 252 ml BalanceBalance 625 ml -15 ml 398 ml Exam General: pleasantly confused. following commands Neck: supple, trach in place Chest: nontender CVS: S1, S2, regular rate and rhythm. no murmurs Lungs: clear to auscultation bilaterally. no wheezing or rhonchi Abd: soft, nontender, nondistended. no rebound or guarding. bowel sounds present diffusely Skin: warm, dry Results Results 24hrs Laboratory Tests Test 11/21/18 04:53 White Blood Count 8.0 Red Blood Count 3.99 L Hemoglobin 12.3 L Hematocrit 37.5 L Mean Corpuscular Volume 94.0 Mean Corpuscular Hemoglobin 30.8 Mean Corpuscular Hemoglobin Concent 32.8 Red Cell Distribution Width 12.9 Platelet Count 212 Mean Platelet Volume 10.3 Immature Granulocytes % 0.400 Neutrophils % 42.3 Lymphocytes % 37.5 Monocytes % 10.0 Eosinophils % 8.3 H Basophils % 1.5 Nucleated Red Blood Cells % 0.0 Immature Granulocytes # 0.030 Neutrophils # 3.4 Lymphocytes # 3.0 H Monocytes # 0.8 Eosinophils # 0.7 H Basophils # 0.1 Nucleated Red Blood Cells # 0.0 Sodium Level 143 Potassium Level 3.7 Chloride Level 103 Carbon Dioxide Level 31 Anion Gap 9 Blood Urea Nitrogen 12 Creatinine 0.84 Est Glomerular Filtrat Rate mL/min > 60 Glucose Level 97 Calcium Level 9.3 Medications Medication Current Medications Naloxone HCl (Narcan) 1 mg Q2M PRN IV LETHARGY Last administered on 11/03/18at 07:19; Admin Dose 1 MG; Start 11/03/18 at 07:00 IV Flush (NS 3 ml) 3 ml PER PROTOCOL IV ; Start 11/03/18 at 12:00 Ondansetron HCl (Zofran Inj) 4 mg Q6H PRN IV NAUSEA/VOMITING Last administered on 11/07/18at 17:46; Admin Dose 4 MG; Start 11/03/18 at 12:00 Acetaminophen (Tylenol Tab) 650 mg Q6H PRN PO .PAIN 1-3 OR TEMP Last administered on 11/12/18at 08:45; Admin Dose 650 MG; Start 11/03/18 at 12:00 Acetaminophen/ Hydrocodone Bitart ([place] (5/325)) 1 tab Q6H PRN PO .MOD PAIN 4- 6 Last administered on 11/17/18 15:17; Admin Dose 1 TAB; Start 11/03/18 at 12:00 Docusate Sodium (Colace) 100 mg Q12H PRN PO .CONSTIPATION; Start 11/03/18 at 12:00 Magnesium Hydroxide (Milk Of Mag) 30 ml DAILY PRN PO .CONSTIPATION Last administered on 11/07/18at 17:47; Admin Dose 30 ML; Start 11/03/18 at 12:00 Albuterol/ Ipratropium (Duoneb) 3 ml Q4H RESP THERAPY PRN HHN SHORTNESS OF BREATH Last administered on 11/06/18at 05:07; Admin Dose 3 ML; Start 11/03/18 at 12:00 Hydralazine HCl (Apresoline) 10 mg Q6H PRN IV ELEVATED BLOOD PRESSURE; Start 11/03/18 at 12:00 Nitroglycerin (Nitroglycerin (Sl Tab) 0.4 Mg) 1 tab Q5M PRN SL ANGINA; Start 11/03/18 at 12:00 Ascorbic Acid (Vitamin C) 500 mg DAILY GTB Last administered on 11/21/18at 09:28; Admin Dose 500 MG; Start 11/04/18 at 09:00 Atorvastatin Calcium (Lipitor) 80 mg QHS GTB Last administered on 11/20/18at 21:10; Admin Dose 80 MG; Start 11/03/18 at 21:00 Bisacodyl (Dulcolax Supp) 10 mg DAILY PRN [place] CONSTIPATION; Start 11/03/18 at 12:00 Chlorhexidine Gluconate (Peridex) 15 ml Q12H MM Last administered on 11/20/18at 12:00; Admin Dose 15 ML; Start 11/03/18 at 12:00 Clonidine (Catapres) 0.2 mg Q8H PRN GTB SBP ABOVE 160; Start 11/03/18 at 12:00 Valproate Sodium (Depakene Liquid Cup) 500 mg BID GTB Last administered on 11/21/18 09:28; Admin Dose 500 MG; Start 11/03/18 at 21:00 Zinc Sulfate (Zinc Sulfate) 220 mg DAILY GTB Last administered on 11/21/18 09:31; Admin Dose 220 MG; Start 11/04/18 at 09:00 Lactobacillus Acidophilus/ Rhamnosus (Culturelle) 1 cap DAILY PO Last administered on 11/21/18:29; Admin Dose 1 CAP; Start 11/04/18 at 09:00 Multivitamins/ Minerals (Theragran-M) 1 tab DAILY PO Last administered on 11/21/18:29; Admin Dose 1 TAB; Start 11/04/18 at 09:00 Gabapentin (Neurontin) 600 mg BID GTB Last administered on 11/21/18:29; Admin Dose 600 MG; Start 11/04/18 at 12:00 Risperidone (Risperdal) 2 mg DAILY GTB Last administered on 11/21/18 09:30; Admin Dose 2 MG; Start 11/04/18 at 14:00 Mupirocin (Bactroban) 1 applic BID TOP Last administered on 11/21/18 09:28; Admin Dose 1 APPLIC; Start 11/05/18 at 12:00 Diphenhydramine HCl (Benadryl) 25 mg Q6H PRN IV ITCHING Last administered on 11/18/18 19:54; Admin Dose 25 MG; Start 11/06/18 at 18:00 Famotidine (Pepcid) 20 mg BID GTB Last administered on 11/21/18 09:30; Admin Dose 20 MG; Start 11/07/18 at 09:00 Lorazepam (Ativan) 1 mg Q6H PRN IV AGITATION Last administered on 11/21/18 07:03; Admin Dose 1 MG; Start 11/15/18 at 20:06 Heparin Sodium (Porcine) (Heparin (5000 Units/1ml)) 5,000 unit BID SC Last administered on 11/21/18 09:34; Admin Dose 5,000 UNIT; Start 11/18/18 at 21:00 Quetiapine Fumarate (Seroquel) 100 mg DAILY PO Last administered on 11/21/18 09:30; Admin Dose 100 MG; Start 11/18/18 at 14:00 Metoprolol Tartrate (Lopressor) 25 mg BID PO Last administered on 11/20/18at 21:11; Admin Dose 25 MG; Start 11/20/18 at 21:00 Aspirin (Aspirin) 325 mg DAILY PO ; Start 11/22/18 at 09:00 HERBERT POTTER MD Nov 21, 2018 11:47
--- NOTE | 2018-11-21 13:15 | CONS ---
Assessment/Plan Assessment/Plan Hospital Course (Demo Recall) IMPRESSION: 1. Positive troponin/NSTEMI-now downtrended-Echo EF 50-55 11/03 2. Abnormal electrocardiogram with incomplete right bundle branch block. 3. Tachycardia, mild. 4. Chronic respiratory failure, status post tracheostomy. 5. Dysphagia, status post G-tube. 6. History of subarachnoid hemorrhage. 7. History of ventriculoperitoneal shunt. 8. 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 s/p JAKE 11/10 with no definite findings for source of embolus but spontaneous contrast in LA/SENAIT which is a marker for low flow/stasis and thus increased risk for development of thrombus(seen with low EF/AF, etc). NOrmal neck CTA 9. HTN-Today BP now on the lower end Recc: -Now on med-surg -Continue asa/statin -Continue BB with slight decrease and follow clsoely -Continue to trend cardiac enzymes which are downtrended -limit sedation and follow MS closely -F/U hypercoag w/u -Lovenox now held due to hematuria Consultation Date/Type/Reason Admit Date/Time November 03, 2018 at 10:30 Initial Consult Date 11/04/18 Type of Consult Cardiology Reason for Consultation NSTEMI Requesting Provider: BRANDT RAMÍREZ Date/Time of Note DATE: 11/21/18 TIME: 13:13 Exam/Review of Systems Vital Signs Vitals Vital Signs Date Temp Pulse Resp B/P (MAP) Pulse Ox O2 O2 Flow FiO2 Time Delivery Rate 11/21/18 98.0 66 18 112/73 99 Trach 07:39 (86) Collar 11/21/18 5.0 28 06:02 Intake and Output 11/20/18 11/20/18 11/21/18 1515:00 23:00 07:00 IntakeIntake Total 800 ml 560 ml 650 ml OutputOutput Total 175 ml 575 ml 252 ml BalanceBalance 625 ml -15 ml 398 ml Exam Exam Review of Systems: CONSTITUTIONAL: No fevers, chills. PULMONARY: No sob CARDIOVASCULAR: No chest pain/palpitations GASTROINTESTINAL: No nausea/vomiting. GENITOURINARY: No hematuria/dysuria. MUSCULOSKELETAL: No myagias/arthalgias. PSYCHIATRIC: The patient denies depression. NEUROLOGIC: encephalopathic Constitutional: alert, oriented Psych: no complaints Head: normocephalic ENMT: mucosa pink and moist Neck: supple, jvd Respiratory: diminished breath sounds Cardiovascular: regular rate and rhythm Gastrointestinal: soft, non-tender Musculoskeletal: muscle tone (nnormal) Extremities: edema (nofocal deficits) Neurological: lethargic Labs Result Diagram: 11/21/183 11/21/183 Results 24hrs Laboratory Tests Test 11/21/18 04:53 White Blood Count 8.0 Red Blood Count 3.99 L Hemoglobin 12.3 L Hematocrit 37.5 L Mean Corpuscular Volume 94.0 Mean Corpuscular Hemoglobin 30.8 Mean Corpuscular Hemoglobin Concent 32.8 Red Cell Distribution Width 12.9 Platelet Count 212 Mean Platelet Volume 10.3 Immature Granulocytes % 0.400 Neutrophils % 42.3 Lymphocytes % 37.5 Monocytes % 10.0 Eosinophils % 8.3 H Basophils % 1.5 Nucleated Red Blood Cells % 0.0 Immature Granulocytes # 0.030 Neutrophils # 3.4 Lymphocytes # 3.0 H Monocytes # 0.8 Eosinophils # 0.7 H Basophils # 0.1 Nucleated Red Blood Cells # 0.0 Sodium Level 143 Potassium Level 3.7 Chloride Level 103 Carbon Dioxide Level 31 Anion Gap 9 Blood Urea Nitrogen 12 Creatinine 0.84 Est Glomerular Filtrat Rate mL/min > 60 Glucose Level 97 Calcium Level 9.3 Medications Medications Current Medications Naloxone HCl (Narcan) 1 mg Q2M PRN IV LETHARGY Last administered on 11/03/18at 07:19; Admin Dose 1 MG; Start 11/03/18 at 07:00 IV Flush (NS 3 ml) 3 ml PER PROTOCOL IV ; Start 11/03/18 at 12:00 Ondansetron HCl (Zofran Inj) 4 mg Q6H PRN IV NAUSEA/VOMITING Last administered on 11/07/18at 17:46; Admin Dose 4 MG; Start 11/03/18 at 12:00 Acetaminophen (Tylenol Tab) 650 mg Q6H PRN PO .PAIN 1-3 OR TEMP Last administered on 11/12/18at 08:45; Admin Dose 650 MG; Start 11/03/18 at 12:00 Acetaminophen/ Hydrocodone Bitart ([place] (5/325)) 1 tab Q6H PRN PO .MOD PAIN 4- 6 Last administered on 11/17/18at 15:17; Admin Dose 1 TAB; Start 11/03/18 at 12:00 Docusate Sodium (Colace) 100 mg Q12H PRN PO .CONSTIPATION; Start 11/03/18 at 12:00 Magnesium Hydroxide (Milk Of Mag) 30 ml DAILY PRN PO .CONSTIPATION Last administered on 11/07/18at 17:47; Admin Dose 30 ML; Start 11/03/18 at 12:00 Albuterol/ Ipratropium (Duoneb) 3 ml Q4H RESP THERAPY PRN HHN SHORTNESS OF BREATH Last administered on 11/06/18at 05:07; Admin Dose 3 ML; Start 11/03/18 at 12:00 Hydralazine HCl (Apresoline) 10 mg Q6H PRN IV ELEVATED BLOOD PRESSURE; Start 11/03/18 at 12:00 Nitroglycerin (Nitroglycerin (Sl Tab) 0.4 Mg) 1 tab Q5M PRN SL ANGINA; Start 11/03/18 at 12:00 Ascorbic Acid (Vitamin C) 500 mg DAILY GTB Last administered on 11/21/18 09:28; Admin Dose 500 MG; Start 11/04/18 at 09:00 Atorvastatin Calcium (Lipitor) 80 mg QHS GTB Last administered on 11/20/18 21:10; Admin Dose 80 MG; Start 11/03/18 at 21:00 Bisacodyl (Dulcolax Supp) 10 mg DAILY PRN [place] CONSTIPATION; Start 11/03/18 at 12:00 Chlorhexidine Gluconate (Peridex) 15 ml Q12H MM Last administered on 11/20/18at 12:00; Admin Dose 15 ML; Start 11/03/18 at 12:00 Clonidine (Catapres) 0.2 mg Q8H PRN GTB SBP ABOVE 160; Start 11/03/18 at 12:00 Valproate Sodium (Depakene Liquid Cup) 500 mg BID GTB Last administered on 11/21 09:28; Admin Dose 500 MG; Start 11/03/18 at 21:00 Zinc Sulfate (Zinc Sulfate) 220 mg DAILY GTB Last administered on 11/21/18 09:31; Admin Dose 220 MG; Start 11/04/18 at 09:00 Lactobacillus Acidophilus/ Rhamnosus (Culturelle) 1 cap DAILY PO Last administered on 11/21/18 09:29; Admin Dose 1 CAP; Start 11/04/18 at 09:00 Multivitamins/ Minerals (Theragran-M) 1 tab DAILY PO Last administered on 11/21/18 09:29; Admin Dose 1 TAB; Start 11/04/18 at 09:00 Gabapentin (Neurontin) 600 mg BID GTB Last administered on 11/21/18 09:29; Admin Dose 600 MG; Start 11/04/18 at 12:00 Risperidone (Risperdal) 2 mg DAILY GTB Last administered on 11/21/18 09:30; Admin Dose 2 MG; Start 11/04/18 at 14:00 Mupirocin (Bactroban) 1 applic BID TOP Last administered on 11/21/18 09:28; Admin Dose 1 APPLIC; Start 11/05/18 at 12:00 Diphenhydramine HCl (Benadryl) 25 mg Q6H PRN IV ITCHING Last administered on 11/18/18 19:54; Admin Dose 25 MG; Start 11/06/18 at 18:00 Famotidine (Pepcid) 20 mg BID GTB Last administered on 11/21/18 09:30; Admin Dose 20 MG; Start 11/07/18 at 09:00 Lorazepam (Ativan) 1 mg Q6H PRN IV AGITATION Last administered on 11/21/18 07:03; Admin Dose 1 MG; Start 11/15/18 at 20:06 Heparin Sodium (Porcine) (Heparin (5000 Units/1ml)) 5,000 unit BID SC Last administered on 11/21/18 09:34; Admin Dose 5,000 UNIT; Start 11/18/18 at 21:00 Quetiapine Fumarate (Seroquel) 100 mg DAILY PO Last administered on 11/21/18 09:30; Admin Dose 100 MG; Start 11/18/18 at 14:00 Metoprolol Tartrate (Lopressor) 25 mg BID PO Last administered on 11/20/18 21:11; Admin Dose 25 MG; Start 11/20/18 at 21:00 Aspirin (Aspirin) 325 mg DAILY PO ; Start 11/22/18 at 09:00 NORMAN KESSLER 10, 2019 13:15
[2018-11-21 14:00] VITALS: BP 117/74; PULSE 66; RESP 19
[2018-11-21 19:25] VITALS: BP 116/76; PULSE 83; RESP 18
[2018-11-21] MEDS: ATORVASTATIN 40 MG TAB GTB SCH (21:34)
[2018-11-22 03:00] VITALS: BP 102/67; PULSE 65; RESP 18
[2018-11-22 07:34] VITALS: BP 119/62; PULSE 72; RESP 19
[2018-11-22] MEDS: LORAZEPAM 2 MG INJ IV PRN ×3 (07:35→21:11)
[2018-11-22] MEDS: HEPARIN 5,000 UNIT/1 ML VIAL SC SCH ×2 (09:40→21:10)
[2018-11-22] MEDS: METOPROLOL 25 MG TAB PO SCH ×2 (09:41→21:08)
[2018-11-22] MEDS: VALPROIC ACID LIQUID CUP 250 MG/5 ML CUP GTB SCH ×2 (09:41→21:07)
[2018-11-22] MEDS: ASPIRIN 325 MG TAB PO SCH (09:41)
[2018-11-22] MEDS: GABAPENTIN 300 MG CAP GTB SCH ×2 (09:41→21:08)
[2018-11-22] MEDS: FAMOTIDINE 20 MG TAB GTB SCH ×2 (09:41→21:08)
[2018-11-22] MEDS: ZINC SULFATE 220 MG CAP GTB SCH (09:41)
[2018-11-22] MEDS: ASCORBIC ACID 500 MG TAB GTB SCH (09:42)
[2018-11-22] MEDS: QUETIAPINE 100 MG TAB PO SCH (09:42)
[2018-11-22] MEDS: MUPIROCIN 2% 22 GM OINT TOP SCH ×2 (09:42→21:10)
[2018-11-22] MEDS: LACTOBACILLUS RHAMNOSUS CAP PO SCH (09:42)
[2018-11-22] MEDS: MULTIVITAMINS/MINERALS TAB PO SCH (09:42)
[2018-11-22] MEDS: RISPERIDONE 2 MG TAB GTB SCH (09:42)
--- NOTE | 2018-11-22 10:41 | CONS ---
Consult Date/Type/Reason Admit Date/Time November 03, 2018 at 10:30 Initial Consult Date Type of Consultation: Urology Requesting Provider: BRANDT RAMÍREZ Date/Time of Note DATE: 11/22/18 TIME: 10:39 Subjective NO acute events - pt comfortable - BP in good range - off tele now, less agitated today - sitter at bedside. ROS: No fever, no chills, no nausea, no vomiting, no diarrhea/constipation - per nurse Objective Vitals Vital Signs Date Temp Pulse Resp B/P (MAP) Pulse Ox O2 O2 Flow FiO2 Time Delivery Rate 11/22/18 97.1 72 19 119/62 99 07:34 (81) 11/22/18 5.0 28 04:30 11/22/18 Aerosol 04:30 T Tube Intake and Output 11/21/18 11/21/18 11/22/18 1515:00 23:00 07:00 IntakeIntake Total 600 ml 850 ml OutputOutput Total 800 ml 500 ml 300 ml BalanceBalance -200 ml 350 ml -300 ml Exam General: WN/WD/NAD, AOx 0 eyes open HEENT: Unicetric/atraumatic/EOMI (does not follow commands) NECK: trach Lymph: no lymphadenopathy HEART: regular with no S3, II/ systolic murmur at apex LUNGS: Coarse sounds ABD: soft, NT, ND, +BS : Intact Neuro: h/o CVA SKIN: chronic changes EXT: trace edema Results/Medications Result Diagram: 11/21/1845211/21/18452 Home Meds Active Scripts Metoprolol Tartrate* (Lopressor*) 25 Mg Tab, 50 MG PO BID, #60 TAB Prov:NICOLE LAN [employer] 11/18/18 Reported Medications Zinc Sulfate* (Zinc Sulfate*) 220 Mg Tablet, 220 MG GTB DAILY, TAB STOP TAKING 11/21/18 11/03/18 Ascorbic Acid* (Vitamin C*) 500 Mg Capsule.sa, 500 MG GTB DAILY, CAP 11/03/18 Valproic Acid* (Valproic Acid* Liq) 250 Mg/5 Ml Syrup, 10 ML GTB BID, ML 11/03/18 Acetaminophen* (Tylenol*) 325 Mg Tablet, 650 MG GTB Q4H PRN for MILD PAIN LEVEL 1-3, TAB AND FEVER 101F,STOP DATE 7/10/19 5/23/19 Risperidone* (Risperdal*) 1 Mg Tablet, 2 MG GTB DAILY, TAB STOP DATE 11/05/18 11/03/18 Hydrocodone/Acetaminophen ([place] 5-325 Tablet) 1 Each Tablet, 1 EACH GTB Q6H PRN for PAIN -02/21, TAB 11/03/18 Multivitamin with Minerals (Multivitamins with Minerals) 1 Each Tablet, 1 EACH GTB DAILY, TAB 11/03/18 Magnesium Hydroxide* (Milk Of Magnesia*) 400 Mg/5 Ml Oral.susp, 30 ML GTB NEEDED, ML 11/03/18 Gabapentin* (Gabapentin*) 300 Mg Capsule, 600 MG GTB BID, #180 CAP 11/03/18 Bisacodyl (Dulcolax) 10 Mg Supp.rect, 10 MG RC PRN, SUPP.RECT 11/03/18 Docusate Sodium* (Colace*) 100 Mg Capsule, 200 MG GTB QHS, #60 CAP 11/03/18 Clonidine Hcl* (Clonidine Hcl*) 0.1 Mg Tab, 0.2 MG GTB Q8H PRN for HTN, TAB HOLD FOR SBPBELOW 110 OR HR BELOW 60 11/03/18 Chlorhexidine Gluconate (Periogard) 473 Ml Mouthwash, 15 ML MM Q12H, BOTTLE 11/03/18 Atorvastatin* (Atorvastatin*) 40 Mg Tablet, 80 MG GTB QHS, #30 TAB 11/03/18 Albuterol Sulfate* (Albuterol Sulfate* Neb) 0.083%-3 Ml Neb, 2.5 MG NEB Q6H PRN for WHEEZING AND SOB, #30 VIAL AND NEEDED Q3H 11/03/18 Lactobacillus Acidophilus/Pect (Acidophilus-Pectin Capsule) 1 Each Capsule, 1 EACH GTB DAILY, CAP 11/03/18 Discontinued Reported Medications Cran/Vitc/Mannose/Inulin/Brom (Uti-Stat Liquid) 3,875 Mg/30 Ml Liquid, 30 ML GTB DAILY 11/03/18 Acetaminophen* (Acetaminophen*) 500 MG Extra Strength Tablet, 1000 MG GTB Q4H PRN for PAIN -11/21, TAB 11/03/18 Acetaminophen* (Tylenol*) 325 Mg Tablet, 650 MG GTB BID PRN for PAIN AND OR ELEVATED TEMP, TAB 11/03/18 Acetaminophen* (Tylenol*) 325 Mg Tablet, 650 MG GTB NEEDED PRN for TRACH TUBE CHANGE, TAB 11/03/18 Amino Acids/Protein Hydrolys (PRO-STAT LIQUID) 30 Ml Liquid.pkt, 30 ML GTB BID 11/03/18 Heparin Sodium,Porcine/Pf (HEPARIN SOD 5,000 UNIT/ 0.5 ML) 5,000 Unit/0.5 Ml Vial, 5000 UNIT IJ Q12H, VIAL 11/03/18 Mineral Oil* (Fleet* Mineral Oil Enema) Unknown Strength Oil, 1 APPLIC [place] NEEDED PRN for CONSTIPATION, ENEMA 11/03/18 Medications Current Medications Naloxone HCl (Narcan) 1 mg Q2M PRN IV LETHARGY Last administered on 11/03/18 07:19; Admin Dose 1 MG; Start 11/03/18 at 07:00 IV Flush (NS 3 ml) 3 ml PER PROTOCOL IV ; Start 11/03/18 at 12:00 Ondansetron HCl (Zofran Inj) 4 mg Q6H PRN IV NAUSEA/VOMITING Last administered on 11/07/18at 17:46; Admin Dose 4 MG; Start 11/03/18 at 12:00 Acetaminophen (Tylenol Tab) 650 mg Q6H PRN PO .PAIN 1-3 OR TEMP Last administered on 11/12/18 08:45; Admin Dose 650 MG; Start 11/03/18 at 12:00 Acetaminophen/ Hydrocodone Bitart ([place] (5/325)) 1 tab Q6H PRN PO .MOD PAIN 4- 6 Last administered on 11/17/18 15:17; Admin Dose 1 TAB; Start 11/03/18 at 12:00 Docusate Sodium (Colace) 100 mg Q12H PRN PO .CONSTIPATION; Start 11/03/18 at 12:00 Magnesium Hydroxide (Milk Of Mag) 30 ml DAILY PRN PO .CONSTIPATION Last administered on 11/07/18 17:47; Admin Dose 30 ML; Start 11/03/18 at 12:00 Albuterol/ Ipratropium (Duoneb) 3 ml Q4H RESP THERAPY PRN HHN SHORTNESS OF BREATH Last administered on 11/06/18 05:07; Admin Dose 3 ML; Start 11/03/18 at 12:00 Hydralazine HCl (Apresoline) 10 mg Q6H PRN IV ELEVATED BLOOD PRESSURE; Start 11/03/18 at 12:00 Nitroglycerin (Nitroglycerin (Sl Tab) 0.4 Mg) 1 tab Q5M PRN SL ANGINA; Start 11/03/18 at 12:00 Ascorbic Acid (Vitamin C) 500 mg DAILY GTB Last administered on 11/22/18 09:42; Admin Dose 500 MG; Start 11/04/18 at 09:00 Atorvastatin Calcium (Lipitor) 80 mg QHS GTB Last administered on 11/21/18 21:34; Admin Dose 80 MG; Start 11/03/18 at 21:00 Bisacodyl (Dulcolax Supp) 10 mg DAILY PRN [place] CONSTIPATION; Start 11/03/18 at 12:00 Chlorhexidine Gluconate (Peridex) 15 ml Q12H MM Last administered on 11/21/18 23:23; Admin Dose 15 ML; Start 11/03/18 at 12:00 Clonidine (Catapres) 0.2 mg Q8H PRN GTB SBP ABOVE 160; Start 11/03/18 at 12:00 Valproate Sodium (Depakene Liquid Cup) 500 mg BID GTB Last administered on 11/22/18 09:41; Admin Dose 500 MG; Start 11/03/18 at 21:00 Zinc Sulfate (Zinc Sulfate) 220 mg DAILY GTB Last administered on 11/22/18 09:41; Admin Dose 220 MG; Start 11/04/18 at 09:00 Lactobacillus Acidophilus/ Rhamnosus (Culturelle) 1 cap DAILY PO Last administered on 11/22/18 09:42; Admin Dose 1 CAP; Start 11/04/18 at 09:00 Multivitamins/ Minerals (Theragran-M) 1 tab DAILY PO Last administered on 11/22/18 09:42; Admin Dose 1 TAB; Start 11/04/18 at 09:00 Gabapentin (Neurontin) 600 mg BID GTB Last administered on 11/22/18 09:41; Admin Dose 600 MG; Start 11/04/18 at 12:00 Risperidone (Risperdal) 2 mg DAILY GTB Last administered on 11/22/18 09:42; Admin Dose 2 MG; Start 11/04/18 at 14:00 Mupirocin (Bactroban) 1 applic BID TOP Last administered on 11/22/18 09:42; Admin Dose 1 APPLIC; Start 11/05/18 at 12:00 Diphenhydramine HCl (Benadryl) 25 mg Q6H PRN IV ITCHING Last administered on 11/18/18 19:54; Admin Dose 25 MG; Start 11/06/18 at 18:00 Famotidine (Pepcid) 20 mg BID GTB Last administered on 11/22/18 09:41; Admin Dose 20 MG; Start 11/07/18 at 09:00 Lorazepam (Ativan) 1 mg Q6H PRN IV AGITATION Last administered on 11/22/18 07:35; Admin Dose 1 MG; Start 11/15/18 at 20:06 Heparin Sodium (Porcine) (Heparin (5000 Units/1ml)) 5,000 unit BID SC Last administered on 11/22/18 09:40; Admin Dose 5,000 UNIT; Start 11/18/18 at 21:00 Quetiapine Fumarate (Seroquel) 100 mg DAILY PO Last administered on 11/22/18 09:42; Admin Dose 100 MG; Start 11/18/18 at 14:00 Metoprolol Tartrate (Lopressor) 25 mg BID PO Last administered on 11/22/18 09:41; Admin Dose 25 MG; Start 11/20/18 at 21:00 Aspirin (Aspirin) 325 mg DAILY PO Last administered on 11/22/18 09:41; Admin Dose 325 MG; Start 11/22/18 at 09:00 Assessment/Plan Hospital Course (Demo Recall) 1. Positive troponin with upending consistent with non-ST elevation myocardial infarction-Echo EF 50-55 11/03 - no obvious CP - will monitor clinically now,. NO CP now - difficult to access, but appears to be comfortable. NO intervention currently planned. No change. Off juliane now. 2. Abnormal electrocardiogram with incomplete right bundle branch block- now in sinus on tele. TREATED. Rate controlled. 3. Tachycardia, mild - witha gition. Rate controlled. 4. Chronic respiratory failure, status post tracheostomy. Con't resp Rx. On meds. Con't supportive R X. 5. Dysphagia, status post G-tube. 6. History of subarachnoid hemorrhage - defer to neuro. No intervention palnned. 7. History of ventriculoperitoneal shunt. 8. 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 fib over 24 hrs. - rate controlled. Will follow. Sinus now - no afib notetd. 9. Hematuria - primary follows. VICENTE XIE MD Nov 22, 2018 10:41
--- NOTE | 2018-11-22 10:42 | PN ---
Date/Time of Note Date/Time of Note DATE: 11/22/18 TIME: 10:39 Assessment/Plan VTE [place] [facility] [place]: 5 [place] [facility] [place] Yes Pharmacological prophylaxis: NA/contraindicated Pharm contraindication: bleeding Lines/Catheters IV [facility]from [facility] [place] Urinary Cath still in place: No Assessment/Plan Assessment/Plan 1. Acute embolic stroke- stable - Neurology consultation appreciated. continue on Aspirin. 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 Hematuria - resolved - no noted episodes - H/H remains stable 3. FELECIA - resolved 4. Elevated troponins - Cardiology on board - no noted chest pain - downtrending 5. HTN - stable 6. HLD - on statin 7. Chronic respiratory failure - trach in place - continue respiratory care 8. GERD - H2 kendall 9. Disposition - Will adjust Seroquel dose for better control of agitation to limit Ativan use. CM on board for SNF placement Result Diagram: 11/21/18 0453 11/21/18 0453 Subjective 24 Hr Interval Summary Free Text/Dictation Patient denies any acute issues and answering simple questions. Per nursing, still restless and agitated with little effect after given Ativan. Exam/Review of Systems Exam Vitals Vital Signs Date Temp Pulse Resp B/P (MAP) Pulse Ox O2 O2 Flow FiO2 Time Delivery Rate 11/22/18 97.1 72 19 119/62 99 07:34 (81) 11/22/18 5.0 28 04:30 11/22/18 Aerosol 04:30 T Tube Intake and Output 11/21/18 11/21/18 11/22/18 1515:00 23:00 07:00 IntakeIntake Total 600 ml 850 ml OutputOutput Total 800 ml 500 ml 300 ml BalanceBalance -200 ml 350 ml -300 ml Exam General: no acute distress. following commands and answering simple questions Neck: supple, trach in place Chest: nontender CVS: S1, S2, regular rate and rhythm. no murmurs Lungs: clear to auscultation bilaterally. no wheezing or rhonchi Abd: soft, nontender, nondistended. no rebound or guarding. bowel sounds present diffusely Skin: warm, dry Medications Medication Current Medications Naloxone HCl (Narcan) 1 mg Q2M PRN IV LETHARGY Last administered on 11/03/18 07:19; Admin Dose 1 MG; Start 11/03/18 at 07:00 IV Flush (NS 3 ml) 3 ml PER PROTOCOL IV ; Start 11/03/18 at 12:00 Ondansetron HCl (Zofran Inj) 4 mg Q6H PRN IV NAUSEA/VOMITING Last administered on 11/07/18at 17:46; Admin Dose 4 MG; Start 11/03/18 at 12:00 Acetaminophen (Tylenol Tab) 650 mg Q6H PRN PO .PAIN 1-3 OR TEMP Last administered on 11/12/18 08:45; Admin Dose 650 MG; Start 11/03/18 at 12:00 Acetaminophen/ Hydrocodone Bitart ([place] (5/325)) 1 tab Q6H PRN PO .MOD PAIN 4- 6 Last administered on 11/17/18 15:17; Admin Dose 1 TAB; Start 11/03/18 at 12:00 Docusate Sodium (Colace) 100 mg Q12H PRN PO .CONSTIPATION; Start 11/03/18 at 12:00 Magnesium Hydroxide (Milk Of Mag) 30 ml DAILY PRN PO .CONSTIPATION Last administered on 11/07/18at 17:47; Admin Dose 30 ML; Start 11/03/18 at 12:00 Albuterol/ Ipratropium (Duoneb) 3 ml Q4H RESP THERAPY PRN HHN SHORTNESS OF BREATH Last administered on 11/06/18at 05:07; Admin Dose 3 ML; Start 11/03/18 at 12:00 Hydralazine HCl (Apresoline) 10 mg Q6H PRN IV ELEVATED BLOOD PRESSURE; Start 11/03/18 at 12:00 Nitroglycerin (Nitroglycerin (Sl Tab) 0.4 Mg) 1 tab Q5M PRN SL ANGINA; Start 11/03/18 at 12:00 Ascorbic Acid (Vitamin C) 500 mg DAILY GTB Last administered on 11/22/18at 09:42; Admin Dose 500 MG; Start 11/04/18 at 09:00 Atorvastatin Calcium (Lipitor) 80 mg QHS GTB Last administered on 11/21/18at 21:34; Admin Dose 80 MG; Start 11/03/18 at 21:00 Bisacodyl (Dulcolax Supp) 10 mg DAILY PRN [place] CONSTIPATION; Start 11/03/18 at 12:00 Chlorhexidine Gluconate (Peridex) 15 ml Q12H MM Last administered on 11/21/18 23:23; Admin Dose 15 ML; Start 11/03/18 at 12:00 Clonidine (Catapres) 0.2 mg Q8H PRN GTB SBP ABOVE 160; Start 11/03/18 at 12:00 Valproate Sodium (Depakene Liquid Cup) 500 mg BID GTB Last administered on 11/22/18 09:41; Admin Dose 500 MG; Start 11/03/18 at 21:00 Zinc Sulfate (Zinc Sulfate) 220 mg DAILY GTB Last administered on 11/22/18 09:41; Admin Dose 220 MG; Start 11/04/18 at 09:00 Lactobacillus Acidophilus/ Rhamnosus (Culturelle) 1 cap DAILY PO Last administered on 11/22/18 09:42; Admin Dose 1 CAP; Start 11/04/18 at 09:00 Multivitamins/ Minerals (Theragran-M) 1 tab DAILY PO Last administered on 11/22/18 09:42; Admin Dose 1 TAB; Start 11/04/18 at 09:00 Gabapentin (Neurontin) 600 mg BID GTB Last administered on 11/22/18 09:41; Admin Dose 600 MG; Start 11/04/18 at 12:00 Risperidone (Risperdal) 2 mg DAILY GTB Last administered on 11/22/18 09:42; Admin Dose 2 MG; Start 11/04/18 at 14:00 Mupirocin (Bactroban) 1 applic BID TOP Last administered on 11/22/18 09:42; Admin Dose 1 APPLIC; Start 11/05/18 at 12:00 Diphenhydramine HCl (Benadryl) 25 mg Q6H PRN IV ITCHING Last administered on 11/18/18 19:54; Admin Dose 25 MG; Start 11/06/18 at 18:00 Famotidine (Pepcid) 20 mg BID GTB Last administered on 11/22/18 09:41; Admin Dose 20 MG; Start 11/07/18 at 09:00 Lorazepam (Ativan) 1 mg Q6H PRN IV AGITATION Last administered on 11/22/18 07:35; Admin Dose 1 MG; Start 11/15/18 at 20:06 Heparin Sodium (Porcine) (Heparin (5000 Units/1ml)) 5,000 unit BID SC Last administered on 11/22/18 09:40; Admin Dose 5,000 UNIT; Start 11/18/18 at 21:00 Quetiapine Fumarate (Seroquel) 100 mg DAILY PO Last administered on 11/22/18 09:42; Admin Dose 100 MG; Start 11/18/18 at 14:00 Metoprolol Tartrate (Lopressor) 25 mg BID PO Last administered on 11/22/18 09:41; Admin Dose 25 MG; Start 11/20/18 at 21:00 Aspirin (Aspirin) 325 mg DAILY PO Last administered on 11/22/18 09:41; Admin Dose 325 MG; Start 11/22/18 at 09:00 HERBERT POTTER MD Nov 22, 2018 10:42
--- NOTE | 2018-11-22 11:58 | CONS ---
Assessment/Plan Assessment/Plan Assessment/Plan (Recall) 43 yo M with multiple comorbidities who presents for evaluation of ams in the context of respiratory sx. 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 for which neurology is consulted. The clinical picture raises concern for a cardioembolic process. Vasculitis is less likely. Echo (TTE) is unrevealing. JAKE was without evidence of intracardiac thrombus, though notable for spontaneous contrast and possible slow flow in the LA CTA H/N was only notable for stable L MARNI aneurysm coil LDL 16, ESR 57, RPR neg, HIV neg Protein C and S low P: Cont ASA for secondary stroke prevention; LDL is at goal BP and other medical management per primary [place] as able Limit sedating medications where possible PT/OT/ST when able Will sign off for now; please call w/ questions Consultation Date/Type/Reason Admit Date/Time November 03, 2018 at 10:30 Type of Consult Neurology Reason for Consultation Strokes Requesting Provider: BRANDT RAMÍREZ Date/Time of Note DATE: 11/22/18 TIME: 11:57 24 HR Interval Summary Free Text/Dictation Continues acute care Exam/Review of Systems Exam Vitals Vital Signs Date Temp Pulse Resp B/P (MAP) Pulse Ox O2 O2 Flow FiO2 Time Delivery Rate 11/22/18 5.0 08:00 11/22/18 97.1 72 19 119/62 99 07:34 (81) 11/22/18 28 04:30 11/22/18 Aerosol 04:30 T Tube Intake and Output 11/21/18 11/21/18 11/22/18 1414:59 22:59 06:59 IntakeIntake Total 600 ml 850 ml OutputOutput Total 800 ml 500 ml 300 ml BalanceBalance -200 ml 350 ml -300 ml Results Result Diagram: 11/21/18 0453 11/21/18 0453 Medications Medication Current Medications Naloxone HCl (Narcan) 1 mg Q2M PRN IV LETHARGY Last administered on 11/03/18at 07:19; Admin Dose 1 MG; Start 11/03/18 at 07:00 IV Flush (NS 3 ml) 3 ml PER PROTOCOL IV ; Start 11/03/18 at 12:00 Ondansetron HCl (Zofran Inj) 4 mg Q6H PRN IV NAUSEA/VOMITING Last administered on 11/07/18at 17:46; Admin Dose 4 MG; Start 11/03/18 at 12:00 Acetaminophen (Tylenol Tab) 650 mg Q6H PRN PO .PAIN 1-3 OR TEMP Last administered on 11/12/18 08:45; Admin Dose 650 MG; Start 11/03/18 at 12:00 Acetaminophen/ Hydrocodone Bitart ([place] (5/325)) 1 tab Q6H PRN PO .MOD PAIN 4- 6 Last administered on 11/17/18 15:17; Admin Dose 1 TAB; Start 11/03/18 at 12:00 Docusate Sodium (Colace) 100 mg Q12H PRN PO .CONSTIPATION; Start 11/03/18 at 12:00 Magnesium Hydroxide (Milk Of Mag) 30 ml DAILY PRN PO .CONSTIPATION Last administered on 11/07/18 17:47; Admin Dose 30 ML; Start 11/03/18 at 12:00 Albuterol/ Ipratropium (Duoneb) 3 ml Q4H RESP THERAPY PRN HHN SHORTNESS OF BREATH Last administered on 11/06/18at 05:07; Admin Dose 3 ML; Start 11/03/18 at 12:00 Hydralazine HCl (Apresoline) 10 mg Q6H PRN IV ELEVATED BLOOD PRESSURE; Start 11/03/18 at 12:00 Nitroglycerin (Nitroglycerin (Sl Tab) 0.4 Mg) 1 tab Q5M PRN SL ANGINA; Start 11/03/18 at 12:00 Ascorbic Acid (Vitamin C) 500 mg DAILY GTB Last administered on 11/22/18 09:42; Admin Dose 500 MG; Start 11/04/18 at 09:00 Atorvastatin Calcium (Lipitor) 80 mg QHS GTB Last administered on 11/21/18 21:34; Admin Dose 80 MG; Start 11/03/18 at 21:00 Bisacodyl (Dulcolax Supp) 10 mg DAILY PRN [place] CONSTIPATION; Start 11/03/18 at 12:00 Chlorhexidine Gluconate (Peridex) 15 ml Q12H MM Last administered on 11/21/18 23:23; Admin Dose 15 ML; Start 11/03/18 at 12:00 Clonidine (Catapres) 0.2 mg Q8H PRN GTB SBP ABOVE 160; Start 11/03/18 at 12:00 Valproate Sodium (Depakene Liquid Cup) 500 mg BID GTB Last administered on 11/22/18 09:41; Admin Dose 500 MG; Start 11/03/18 at 21:00 Zinc Sulfate (Zinc Sulfate) 220 mg DAILY GTB Last administered on 11/22/18 09:41; Admin Dose 220 MG; Start 11/04/18 at 09:00 Lactobacillus Acidophilus/ Rhamnosus (Culturelle) 1 cap DAILY PO Last administered on 11/22/18 09:42; Admin Dose 1 CAP; Start 11/04/18 at 09:00 Multivitamins/ Minerals (Theragran-M) 1 tab DAILY PO Last administered on 11/22/18:42; Admin Dose 1 TAB; Start 11/04/18 at 09:00 Gabapentin (Neurontin) 600 mg BID GTB Last administered on 11/22/18 09:41; Admin Dose 600 MG; Start 11/04/18 at 12:00 Risperidone (Risperdal) 2 mg DAILY GTB Last administered on 11/22/18 09:42; Admin Dose 2 MG; Start 11/04/18 at 14:00 Mupirocin (Bactroban) 1 applic BID TOP Last administered on 11/22/18 09:42; Admin Dose 1 APPLIC; Start 11/05/18 at 12:00 Diphenhydramine HCl (Benadryl) 25 mg Q6H PRN IV ITCHING Last administered on 11/18/18 19:54; Admin Dose 25 MG; Start 11/06/18 at 18:00 Famotidine (Pepcid) 20 mg BID GTB Last administered on 11/22/18 09:41; Admin Dose 20 MG; Start 11/07/18 at 09:00 Lorazepam (Ativan) 1 mg Q6H PRN IV AGITATION Last administered on 11/22/18 07:35; Admin Dose 1 MG; Start 11/15/18 at 20:06 Heparin Sodium (Porcine) (Heparin (5000 Units/1ml)) 5,000 unit BID SC Last administered on 11/22/18 09:40; Admin Dose 5,000 UNIT; Start 11/18/18 at 21:00 Quetiapine Fumarate (Seroquel) 100 mg DAILY PO Last administered on 11/22/18 09:42; Admin Dose 100 MG; Start 11/18/18 at 14:00 Metoprolol Tartrate (Lopressor) 25 mg BID PO Last administered on 11/22/18at 09:41; Admin Dose 25 MG; Start 11/20/18 at 21:00 Aspirin (Aspirin) 325 mg DAILY PO Last administered on 11/22/18at 09:41; Admin Dose 325 MG; Start 11/22/18 at 09:00 Quetiapine Fumarate (Seroquel) 50 mg HS PO ; Start 11/22/18 at 21:00 ISA CRUM 11, 2019 11:58
[2018-11-22] MEDS: CHLORHEXIDINE GLUCONATE 15 ML UD CUP MM SCH ×2 (12:07→23:53)
[2018-11-22] MEDS ORDERED: RISPERIDONE 2 MG TAB GTB PRN (14:00)
[2018-11-22 19:39] VITALS: BP 135/80; PULSE 74; RESP 18
[2018-11-22] MEDS: ATORVASTATIN 40 MG TAB GTB SCH (21:07)
[2018-11-22] MEDS: QUETIAPINE 25 MG TAB PO SCH (21:09)
[2018-11-23 07:11] VITALS: BP 130/85; PULSE 66; RESP 14
[2018-11-23] MEDS: FAMOTIDINE 20 MG TAB GTB SCH ×2 (08:58→20:36)
[2018-11-23] MEDS: MULTIVITAMINS/MINERALS TAB PO SCH (08:58)
[2018-11-23] MEDS: ZINC SULFATE 220 MG CAP GTB SCH (08:58)
[2018-11-23] MEDS: QUETIAPINE 100 MG TAB PO SCH (08:58)
[2018-11-23] MEDS: ASCORBIC ACID 500 MG TAB GTB SCH (08:58)
[2018-11-23] MEDS: GABAPENTIN 300 MG CAP GTB SCH ×2 (08:59→20:36)
[2018-11-23] MEDS: LACTOBACILLUS RHAMNOSUS CAP PO SCH (08:59)
[2018-11-23] MEDS: METOPROLOL 25 MG TAB PO SCH ×2 (08:59→20:37)
[2018-11-23] MEDS: ASPIRIN 325 MG TAB PO SCH (08:59)
[2018-11-23] MEDS: VALPROIC ACID LIQUID CUP 250 MG/5 ML CUP GTB SCH ×2 (08:59→20:37)
[2018-11-23] MEDS: HEPARIN 5,000 UNIT/1 ML VIAL SC SCH ×2 (09:00→20:38)
[2018-11-23] MEDS: MUPIROCIN 2% 22 GM OINT TOP SCH ×2 (09:01→20:41)
--- NOTE | 2018-11-23 09:08 | PN ---
Date/Time of Note Date/Time of Note DATE: 11/23/18 TIME: 09:03 Assessment/Plan VTE Prophylaxis Risk score (from Ns)>0 risk: 1 SCD applied (from Ns): Yes Pharmacological prophylaxis: heparin Lines/Catheters IV Catheter Type (from Nrs): [place] Urinary Cath still in place: No Assessment/Plan Assessment/Plan 1. Acute embolic stroke- stable - Neurology consultation appreciated. continue on Aspirin. 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 Hematuria- resolved - no noted episodes - H/H remains stable 3. FELECIA- resolved 4. Elevated troponins - Cardiology on board - no noted chest pain - downtrending 5. HTN - stable 6. HLD - on statin 7. Chronic respiratory failure - trach in place - continue respiratory care 8. GERD - H2 [place] 9. Agitation - improving with added dose of Seroquel. will continue titrating as needed 10. Disposition - CM on board for SNF placement Result Diagram: 11/21/18 0453 11/21/18 0453 Subjective 24 Hr Interval Summary Free Text/Dictation Patient is currently eating breakfast. States has mild discomfort in left chest and left groin area for the past week. Exam/Review of Systems Exam Vitals Vital Signs Date Temp Pulse Resp B/P (MAP) Pulse Ox O2 O2 Flow FiO2 Time Delivery Rate 11/23/18 98.0 66 14 130/85 100 Trach 07:11 (100) Collar 11/23/18 5.0 28 04:35 Intake and Output 11/22/18 11/22/18 11/23/18 1515:00 23:00 07:00 IntakeIntake Total 200 ml 200 ml OutputOutput Total 1200 ml BalanceBalance 200 ml -1000 ml Exam General: no acute distress. following commands and answering simple questions Neck: supple, trach in place Chest: nontender CVS: S1, S2, regular rate and rhythm. no murmurs Lungs: clear to auscultation bilaterally. no wheezing or rhonchi Abd: soft, nontender, nondistended. no rebound or guarding. bowel sounds present diffusely Skin: warm, dry Medications Medication Current Medications Naloxone HCl (Narcan) 1 mg Q2M PRN IV LETHARGY Last administered on 11/03/18at 07:19; Admin Dose 1 MG; Start 11/03/18 at 07:00 IV Flush (NS 3 ml) 3 ml PER PROTOCOL IV ; Start 11/03/18 at 12:00 Ondansetron HCl (Zofran Inj) 4 mg Q6H PRN IV NAUSEA/VOMITING Last administered on 11/07/18at 17:46; Admin Dose 4 MG; Start 11/03/18 at 12:00 Acetaminophen (Tylenol Tab) 650 mg Q6H PRN PO .PAIN 1-3 OR TEMP Last administered on 11/12/18 08:45; Admin Dose 650 MG; Start 11/03/18 at 12:00 Acetaminophen/ Hydrocodone Bitart ([place] (5/325)) 1 tab Q6H PRN PO .MOD PAIN 4- 6 Last administered on 11/17/18 15:17; Admin Dose 1 TAB; Start 11/03/18 at 12:00 Docusate Sodium (Colace) 100 mg Q12H PRN PO .CONSTIPATION; Start 11/03/18 at 12:00 Magnesium Hydroxide (Milk Of Mag) 30 ml DAILY PRN PO .CONSTIPATION Last administered on 11/07/18at 17:47; Admin Dose 30 ML; Start 11/03/18 at 12:00 Albuterol/ Ipratropium (Duoneb) 3 ml Q4H RESP THERAPY PRN HHN SHORTNESS OF BREATH Last administered on 11/06/18at 05:07; Admin Dose 3 ML; Start 11/03/18 at 12:00 Hydralazine HCl (Apresoline) 10 mg Q6H PRN IV ELEVATED BLOOD PRESSURE; Start 11/03/18 at 12:00 Nitroglycerin (Nitroglycerin (Sl Tab) 0.4 Mg) 1 tab Q5M PRN SL ANGINA; Start 11/03/18 at 12:00 Ascorbic Acid (Vitamin C) 500 mg DAILY GTB Last administered on 11/23/18at 08:58; Admin Dose 500 MG; Start 11/04/18 at 09:00 Atorvastatin Calcium (Lipitor) 80 mg QHS GTB Last administered on 11/22/18at 21:07; Admin Dose 80 MG; Start 11/03/18 at 21:00 Bisacodyl (Dulcolax Supp) 10 mg DAILY PRN [place] CONSTIPATION; Start 11/03/18 at 12:00 Chlorhexidine Gluconate (Peridex) 15 ml Q12H MM Last administered on 11/22/18 12:07; Admin Dose 15 ML; Start 11/03/18 at 12:00 Clonidine (Catapres) 0.2 mg Q8H PRN GTB SBP ABOVE 160; Start 11/03/18 at 12:00 Valproate Sodium (Depakene Liquid Cup) 500 mg BID GTB Last administered on 11/23/18 08:59; Admin Dose 500 MG; Start 11/03/18 at 21:00 Zinc Sulfate (Zinc Sulfate) 220 mg DAILY GTB Last administered on 11/23/18 08:58; Admin Dose 220 MG; Start 11/04/18 at 09:00 Lactobacillus Acidophilus/ Rhamnosus (Culturelle) 1 cap DAILY PO Last administered on 11/23/18 08:59; Admin Dose 1 CAP; Start 11/04/18 at 09:00 Multivitamins/ Minerals (Theragran-M) 1 tab DAILY PO Last administered on 11/23/18 08:58; Admin Dose 1 TAB; Start 11/04/18 at 09:00 Gabapentin (Neurontin) 600 mg BID GTB Last administered on 11/23/18 08:59; Adm in Dose 600 MG; Start 11/04/18 at 12:00 Mupirocin (Bactroban) 1 applic BID TOP Last administered on 11/23/18 09:01; Admin Dose 1 APPLIC; Start 11/05/18 at 12:00 Diphenhydramine HCl (Benadryl) 25 mg Q6H PRN IV ITCHING Last administered on 11/18/18 19:54; Admin Dose 25 MG; Start 11/06/18 at 18:00 Famotidine (Pepcid) 20 mg BID GTB Last administered on 11/23/18 08:58; Admin Dose 20 MG; Start 11/07/18 at 09:00 Lorazepam (Ativan) 1 mg Q6H PRN IV AGITATION Last administered on 11/22/18 21:11; Admin Dose 1 MG; Start 11/15/18 at 20:06 Heparin Sodium (Porcine) (Heparin (5000 Units/1ml)) 5,000 unit BID SC Last administered on 11/23/18 09:00; Admin Dose 5,000 UNIT; Start 11/18/18 at 21:00 Quetiapine Fumarate (Seroquel) 100 mg DAILY PO Last administered on 11/23/18at 08:58; Admin Dose 100 MG; Start 11/18/18 at 14:00 Metoprolol Tartrate (Lopressor) 25 mg BID PO Last administered on 11/23/18at 0 8:59; Admin Dose 25 MG; Start 11/20/18 at 21:00 Aspirin (Aspirin) 325 mg DAILY PO Last administered on 11/23/18at 08:59; Admin Dose 325 MG; Start 11/22/18 at 09:00 Quetiapine Fumarate (Seroquel) 50 mg HS PO Last administered on 11/22/18at 21:09; Admin Dose 50 MG; Start 11/22/18 at 21:00 Risperidone (Risperdal) 2 mg DAILY PRN GTB agitation; Start 11/22/18 at 14:00 HERBERT POTTER MD Nov 23, 2018 09:08
[2018-11-23] MEDS: LORAZEPAM 2 MG INJ IV PRN ×3 (09:40→23:07)
--- NOTE | 2018-11-23 12:48 | CONS ---
Assessment/Plan Assessment/Plan Hospital Course (Demo Recall) IMPRESSION: 1. Positive troponin/NSTEMI-now downtrended-Echo EF 50-55 11/03 2. Abnormal electrocardiogram with incomplete right bundle branch block. 3. Tachycardia, mild. 4. Chronic respiratory failure, status post tracheostomy. 5. Dysphagia, status post G-tube. 6. History of subarachnoid hemorrhage. 7. History of ventriculoperitoneal shunt. 8. 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 s/p JAKE 11/10 with no definite findings for source of embolus but spontaneous contrast in LA/SENAIT which is a marker for low flow/stasis and thus increased risk for development of thrombus(seen with low EF/AF, etc). NOrmal neck CTA 9. HTN-well controlled Recc: -Now on med-surg -Continue asa/statin -Continue BB at current dose -Continue to trend cardiac enzymes which are downtrended -limit sedation and follow MS closely -F/U hypercoag w/u -Lovenox now held due to hematuria Consultation Date/Type/Reason Admit Date/Time November 03, 2018 at 10:30 Initial Consult Date 11/04/18 Type of Consult Cardiology Reason for Consultation Nstemi Requesting Provider: BRANDT RAMÍREZ Date/Time of Note DATE: 11/23/18 TIME: 12:46 Exam/Review of Systems Vital Signs Vitals Vital Signs Date Temp Pulse Resp B/P (MAP) Pulse Ox O2 O2 Flow FiO2 Time Delivery Rate 11/23/18 5.0 28 10:07 11/23/18 98.0 66 14 130/85 100 Trach 07:11 (100) Collar Intake and Output 11/22/18 11/22/18 11/23/18 1515:00 23:00 07:00 IntakeIntake Total 200 ml 200 ml OutputOutput Total 1200 ml BalanceBalance 200 ml -1000 ml Exam Exam Review of Systems: CONSTITUTIONAL: No fevers, chills. PULMONARY: No sob CARDIOVASCULAR: No chest pain/palpitations GASTROINTESTINAL: No nausea/vomiting. GENITOURINARY: No hematuria/dysuria. MUSCULOSKELETAL: No myagias/arthalgias. PSYCHIATRIC: The patient denies depression. NEUROLOGIC: encephalopathic Constitutional: other (sleping) Psych: no complaints ENMT: mucosa pink and moist Neck: supple, jvd (9 cm water) Respiratory: diminished breath sounds (at bases/B) Cardiovascular: regular rate and rhythm Gastrointestinal: soft, non-tender Musculoskeletal: muscle tone (normal) Extremities: edema (none) Neurological: confused Labs Result Diagram: 11/21/1845211/21/18452 Medications Medications Current Medications Naloxone HCl (Narcan) 1 mg Q2M PRN IV LETHARGY Last administered on 11/03/18 07:19; Admin Dose 1 MG; Start 11/03/18 at 07:00 IV Flush (NS 3 ml) 3 ml PER PROTOCOL IV ; Start 11/03/18 at 12:00 Ondansetron HCl (Zofran Inj) 4 mg Q6H PRN IV NAUSEA/VOMITING Last administered on 11/07/18at 17:46; Admin Dose 4 MG; Start 11/03/18 at 12:00 Acetaminophen (Tylenol Tab) 650 mg Q6H PRN PO .PAIN 1-3 OR TEMP Last administered on 11/12/18at 08:45; Admin Dose 650 MG; Start 11/03/18 at 12:00 Acetaminophen/ Hydrocodone Bitart ([place] (5/325)) 1 tab Q6H PRN PO .MOD PAIN 4- 6 Last administered on 11/17/18at 15:17; Admin Dose 1 TAB; Start 11/03/18 at 12:00 Docusate Sodium (Colace) 100 mg Q12H PRN PO .CONSTIPATION; Start 11/03/18 at 12:00 Magnesium Hydroxide (Milk Of Mag) 30 ml DAILY PRN PO .CONSTIPATION Last administered on 11/07/18at 17:47; Admin Dose 30 ML; Start 11/03/18 at 12:00 Albuterol/ Ipratropium (Duoneb) 3 ml Q4H RESP THERAPY PRN HHN SHORTNESS OF BREATH Last administered on 11/06/18at 05:07; Admin Dose 3 ML; Start 11/03/18 at 12:00 Hydralazine HCl (Apresoline) 10 mg Q6H PRN IV ELEVATED BLOOD PRESSURE; Start 11/03/18 at 12:00 Nitroglycerin (Nitroglycerin (Sl Tab) 0.4 Mg) 1 tab Q5M PRN SL ANGINA; Start 11/03/18 at 12:00 Ascorbic Acid (Vitamin C) 500 mg DAILY GTB Last administered on 11/23/18 08:58; Admin Dose 500 MG; Start 11/04/18 at 09:00 Atorvastatin Calcium (Lipitor) 80 mg QHS GTB Last administered on 11/22/18 21:07; Admin Dose 80 MG; Start 11/03/18 at 21:00 Bisacodyl (Dulcolax Supp) 10 mg DAILY PRN [place] CONSTIPATION; Start 11/03/18 at 12:00 Chlorhexidine Gluconate (Peridex) 15 ml Q12H MM Last administered on 11/22/18 12:07; Admin Dose 15 ML; Start 11/03/18 at 12:00 Clonidine (Catapres) 0.2 mg Q8H PRN GTB SBP ABOVE 160; Start 11/03/18 at 12:00 Valproate Sodium (Depakene Liquid Cup) 500 mg BID GTB Last administered on 11/23/18 08:59; Admin Dose 500 MG; Start 11/03/18 at 21:00 Zinc Sulfate (Zinc Sulfate) 220 mg DAILY GTB Last administered on 11/23/18 08:58; Admin Dose 220 MG; Start 11/04/18 at 09:00 Lactobacillus Acidophilus/ Rhamnosus (Culturelle) 1 cap DAILY PO Last administered on 11/23/18 08:59; Admin Dose 1 CAP; Start 11/04/18 at 09:00 Multivitamins/ Minerals (Theragran-M) 1 tab DAILY PO Last administered on 11/23/18 08:58; Admin Dose 1 TAB; Start 11/04/18 at 09:00 Gabapentin (Neurontin) 600 mg BID GTB Last administered on 11/23/18 08:59; Admin Dose 600 MG; Start 11/04/18 at 12:00 Mupirocin (Bactroban) 1 applic BID TOP Last administered on 11/23/18 09:01; Admin Dose 1 APPLIC; Start 11/05/18 at 12:00 Diphenhydramine HCl (Benadryl) 25 mg Q6H PRN IV ITCHING Last administered on 19:54; Admin Dose 25 MG; Start 11/06/18 at 18:00 Famotidine (Pepcid) 20 mg BID GTB Last administered on 11/23/18 08:58; Admin Dose 20 MG; Start 11/07/18 at 09:00 Lorazepam (Ativan) 1 mg Q6H PRN IV AGITATION Last administered on 11/23/18 09:40; Admin Dose 1 MG; Start 11/15/18 at 20:06 Heparin Sodium (Porcine) (Heparin (5000 Units/1ml)) 5,000 unit BID SC Last administered on 11/23/18 09:00; Admin Dose 5,000 UNIT; Start 11/18/18 at 21:00 Quetiapine Fumarate (Seroquel) 100 mg DAILY PO Last administered on 11/23/18 08:58; Admin Dose 100 MG; Start 11/18/18 at 14:00 Metoprolol Tartrate (Lopressor) 25 mg BID PO Last administered on 11/23/18 08:59; Admin Dose 25 MG; Start 11/20/18 at 21:00 Aspirin (Aspirin) 325 mg DAILY PO Last administered on 11/23/18 08:59; Admin Dose 325 MG; Start 11/22/18 at 09:00 Quetiapine Fumarate (Seroquel) 50 mg HS PO Last administered on 11/22/18 21:09 ; Admin Dose 50 MG; Start 11/22/18 at 21:00 Risperidone (Risperdal) 2 mg DAILY PRN GTB agitation; Start 11/22/18 at 14:00 NORMAN KESSLER Nov 23, 2018 12:48
[2018-11-23] MEDS: CHLORHEXIDINE GLUCONATE 15 ML UD CUP MM SCH (13:22)
[2018-11-23 13:36] VITALS: BP 109/69; PULSE 58; RESP 16
--- NOTE | 2018-11-23 18:06 | CONS ---
Consult Date/Type/Reason Admit Date/Time November 03, 2018 at 10:30 Initial Consult Date 11/14/18 Type of Consultation: Urology Reason for Consultation Hematuria that has cleared Requesting Provider: BRANDT RAMÍREZ Date/Time of Note DATE: 11/23/18 TIME: 18:04 Subjective The patient remains restless. But according to the staff he is voiding in the urinal and the urine is clear Objective Vitals Vital Signs Date Temp Pulse Resp B/P (MAP) Pulse Ox O2 O2 Flow FiO2 Time Delivery Rate 11/23/18 62 18 98 Aerosol 5.0 28 17:12 T Tube 11/23/18 98.5 109/69 13:36 (82) Intake and Output 11/22/18 11/22/18 11/23/18 1515:00 23:00 07:00 IntakeIntake Total 200 ml 200 ml OutputOutput Total 1200 ml BalanceBalance 200 ml -1000 ml Exam Patient ask for the urinal and urinate in it and the urine is clear Results/Medications Result Diagram: 11/21/18 0453 11/21/18 045 Home Meds Active Scripts Metoprolol Tartrate* (Lopressor*) 25 Mg Tab, 50 MG PO BID, #60 TAB Prov:NICOLE LAN BILLING MANAGER 11/18/18 Reported Medications Zinc Sulfate* (Zinc Sulfate*) 220 Mg Tablet, 220 MG GTB DAILY, TAB STOP TAKING 11/21/18 11/03/18 Ascorbic Acid* (Vitamin C*) 500 Mg Capsule.sa, 500 MG GTB DAILY, CAP 11/03/18 Valproic Acid* (Valproic Acid* Liq) 250 Mg/5 Ml Syrup, 10 ML GTB BID, ML 11/03/18 Acetaminophen* (Tylenol*) 325 Mg Tablet, 650 MG GTB Q4H PRN for MILD PAIN LEVEL 1-3, TAB AND FEVER 101F,STOP DATE 12/21/18 11/03/18 Risperidone* (Risperdal*) 1 Mg Tablet, 2 MG GTB DAILY, TAB STOP DATE 11/05/18 11/03/18 Hydrocodone/Acetaminophen (Lena 5-325 Tablet) 1 Each Tablet, 1 EACH GTB Q6H PRN for PAIN 7-9/10, TAB 11/03/18 Multivitamin with Minerals (Multivitamins with Minerals) 1 Each Tablet, 1 EACH GTB DAILY, TAB 11/03/18 Magnesium Hydroxide* (Milk Of Magnesia*) 400 Mg/5 Ml Oral.susp, 30 ML GTB NEEDED, ML 11/03/18 Gabapentin* (Gabapentin*) 300 Mg Capsule, 600 MG GTB BID, #180 CAP 11/03/18 Bisacodyl (Dulcolax) 10 Mg Supp.rect, 10 MG RC PRN, SUPP.RECT 11/03/18 Docusate Sodium* (Colace*) 100 Mg Capsule, 200 MG GTB QHS, #60 CAP 11/03/18 Clonidine Hcl* (Clonidine Hcl*) 0.1 Mg Tab, 0.2 MG GTB Q8H PRN for HTN, TAB HOLD FOR SBPBELOW 110 OR HR BELOW 60 11/03/18 Chlorhexidine Gluconate (Periogard) 473 Ml Mouthwash, 15 ML MM Q12H, BOTTLE 11/03/18 Atorvastatin* (Atorvastatin*) 40 Mg Tablet, 80 MG GTB QHS, #30 TAB 11/03/18 Albuterol Sulfate* (Albuterol Sulfate* Neb) 0.083%-3 Ml Neb, 2.5 MG NEB Q6H PRN for WHEEZING AND SOB, #30 VIAL AND NEEDED Q3H 11/03/18 Lactobacillus Acidophilus/Pect (Acidophilus-Pectin Capsule) 1 Each Capsule, 1 EA CH GTB DAILY, CAP 11/03/18 Discontinued Reported Medications Cran/Vitc/Mannose/Inulin/Brom (Uti-Stat Liquid) 3,875 Mg/30 Ml Liquid, 30 ML GTB DAILY 11/03/18 Acetaminophen* (Acetaminophen*) 500 MG Extra Strength Tablet, 1000 MG GTB Q4H PRN for PAIN -11/21, TAB 11/03/18 Acetaminophen* (Tylenol*) 325 Mg Tablet, 650 MG GTB BID PRN for PAIN AND OR ELEVATED TEMP, TAB 11/03/18 Acetaminophen* (Tylenol*) 325 Mg Tablet, 650 MG GTB NEEDED PRN for TRACH TUBE CHANGE, TAB 11/03/18 Amino Acids/Protein Hydrolys (PRO-STAT LIQUID) 30 Ml Liquid.pkt, 30 ML GTB BID 11/03/18 Heparin Sodium,Porcine/Pf (HEPARIN SOD 5,000 UNIT/ 0.5 ML) 5,000 Unit/0.5 Ml Vial, 5000 UNIT IJ Q12H, VIAL 11/03/18 Mineral Oil* (Fleet* Mineral Oil Enema) Unknown Strength Oil, 1 APPLIC [place] NEEDED PRN for CONSTIPATION, ENEMA 11/03/18 Medications Current Medications Naloxone HCl (Narcan) 1 mg Q2M PRN IV LETHARGY Last administered on 11/03/18 07:19; Admin Dose 1 MG; Start 11/03/18 at 07:00 IV Flush (NS 3 ml) 3 ml PER PROTOCOL IV ; Start 11/03/18 at 12:00 Ondansetron HCl (Zofran Inj) 4 mg Q6H PRN IV NAUSEA/VOMITING Last administered on 11/07/18at 17:46; Admin Dose 4 MG; Start 11/03/18 at 12:00 Acetaminophen (Tylenol Tab) 650 mg Q6H PRN PO .PAIN 1-3 OR TEMP Last administered on 11/12/18at 08:45; Admin Dose 650 MG; Start 11/03/18 at 12:00 Acetaminophen/ Hydrocodone Bitart ([place] (5/325)) 1 tab Q6H PRN PO .MOD PAIN 4- 6 Last administered on 11/17/18at 15:17; Admin Dose 1 TAB; Start 11/03/18 at 12:00 Docusate Sodium (Colace) 100 mg Q12H PRN PO .CONSTIPATION; Start 11/03/18 at 12:00 Magnesium Hydroxide (Milk Of Mag) 30 ml DAILY PRN PO .CONSTIPATION Last administered on 11/07/18at 17:47; Admin Dose 30 ML; Start 11/03/18 at 12:00 Albuterol/ Ipratropium (Duoneb) 3 ml Q4H RESP THERAPY PRN HHN SHORTNESS OF BREATH Last administered on 11/06/18at 05:07; Admin Dose 3 ML; Start 11/03/18 at 12:00 Hydralazine HCl (Apresoline) 10 mg Q6H PRN IV ELEVATED BLOOD PRESSURE; Start 11/03/18 at 12:00 Nitroglycerin (Nitroglycerin (Sl Tab) 0.4 Mg) 1 tab Q5M PRN SL ANGINA; Start 11/03/18 at 12:00 Ascorbic Acid (Vitamin C) 500 mg DAILY GTB Last administered on 11/23/18at 08:58; Admin Dose 500 MG; Start 11/04/18 at 09:00 Atorvastatin Calcium (Lipitor) 80 mg QHS GTB Last administered on 11/22/18 21:07; Admin Dose 80 MG; Start 11/03/18 at 21:00 Bisacodyl (Dulcolax Supp) 10 mg DAILY PRN [place] CONSTIPATION; Start 11/03/18 at 12:00 Chlorhexidine Gluconate (Peridex) 15 ml Q12H MM Last administered on 11/23/18 13:22; Admin Dose 15 ML; Start 11/03/18 at 12:00 Clonidine (Catapres) 0.2 mg Q8H PRN GTB SBP ABOVE 160; Start 11/03/18 at 12:00 Valproate Sodium (Depakene Liquid Cup) 500 mg BID GTB Last administered on 11/23/18 08:59; Admin Dose 500 MG; Start 11/03/18 at 21:00 Zinc Sulfate (Zinc Sulfate) 220 mg DAILY GTB Last administered on 11/23/18 08:58; Admin Dose 220 MG; Start 11/04/18 at 09:00 Lactobacillus Acidophilus/ Rhamnosus (Culturelle) 1 cap DAILY PO Last administered on 11/23/18 08:59; Admin Dose 1 CAP; Start 11/04/18 at 09:00 Multivitamins/ Minerals (Theragran-M) 1 tab DAILY PO Last administered on 11/23/18 08:58; Admin Dose 1 TAB; Start 11/04/18 at 09:00 Gabapentin (Neurontin) 600 mg BID GTB Last administered on 11/23/18 08:59; Admin Dose 600 MG; Start 11/04/18 at 12:00 Mupirocin (Bactroban) 1 applic BID TOP Last administered on 11/23/18 09:01; Admin Dose 1 APPLIC; Start 11/05/18 at 12:00 Diphenhydramine HCl (Benadryl) 25 mg Q6H PRN IV ITCHING Last administered on 11/18/18 19:54; Admin Dose 25 MG; Start 11/06/18 at 18:00 Famotidine (Pepcid) 20 mg BID GTB Last administered on 11/23/18 08:58; Admin Dose 20 MG; Start 11/07/18 at 09:00 Lorazepam (Ativan) 1 mg Q6H PRN IV AGITATION Last administered on 11/23/18 15:06; Admin Dose 1 MG; Start 11/15/18 at 20:06 Heparin Sodium (Porcine) (Heparin (5000 Units/1ml)) 5,000 unit BID SC Last administered on 11/23/18 09:00; Admin Dose 5,000 UNIT; Start 11/18/18 at 21:00 Quetiapine Fumarate (Seroquel) 100 mg DAILY PO Last administered on 11/23/18 08:58; Admin Dose 100 MG; Start 11/18/18 at 14:00 Metoprolol Tartrate (Lopressor) 25 mg BID PO Last administered on 11/23/18 08:59; Admin Dose 25 MG; Start 11/20/18 at 21:00 Aspirin (Aspirin) 325 mg DAILY PO Last administered on 11/23/18 08:59; Admin Dose 325 MG; Start 11/22/18 at 09:00 Quetiapine Fumarate (Seroquel) 50 mg HS PO Last administered on 11/22/18 21:09; Admin Dose 50 MG; Start 11/22/18 at 21:00 Risperidone (Risperdal) 2 mg DAILY PRN GTB agitation Last administered on 11/23/18 14:46; Admin Dose 2 MG; Start 11/22/18 at 14:00 Assessment/Plan Hospital Course (Demo Recall) 43-year-old male with history of subarachnoid hemorrhage with subsequent 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 Patient was evaluated and was found to have had an episode of apnea and altered mental status, he also was found to have elevated troponin and renal insufficiency. He is known to have a history of hypertension and high cholesterol. He has a tracheostomy and G-tube and an indwelling Higgins catheter. He was noted to have gross hematuria and that has not cleared even though the patient was treated with antibiotic and is well hydrated. Since the Higgins catheter was discontinued the patient has been able to urinate on his own. He does use a urinal sometime and his urine is clear. There is no gross hematuria. Urologically we will just observe EDWIN HOGAN MD Nov 23, 2018 18:06
[2018-11-23 19:35] VITALS: BP 115/72; PULSE 63; RESP 18
[2018-11-23] MEDS: QUETIAPINE 25 MG TAB PO SCH (20:36)
[2018-11-23] MEDS: ATORVASTATIN 40 MG TAB GTB SCH (20:36)
[2018-11-24] MEDS: CHLORHEXIDINE GLUCONATE 15 ML UD CUP MM SCH ×2 (00:39→12:05)
[2018-11-24 02:08] VITALS: BP 99/56; PULSE 55; RESP 18
[2018-11-24 07:36] VITALS: BP 99/62; PULSE 58; RESP 18
[2018-11-24] MEDS: MULTIVITAMINS/MINERALS TAB PO SCH (08:45)
[2018-11-24] MEDS: GABAPENTIN 300 MG CAP GTB SCH (08:46)
[2018-11-24] MEDS: QUETIAPINE 100 MG TAB PO SCH (08:46)
[2018-11-24] MEDS: FAMOTIDINE 20 MG TAB GTB SCH (08:46)
[2018-11-24] MEDS: ASCORBIC ACID 500 MG TAB GTB SCH (08:47)
[2018-11-24] MEDS: LACTOBACILLUS RHAMNOSUS CAP PO SCH (08:47)
[2018-11-24] MEDS: ZINC SULFATE 220 MG CAP GTB SCH (08:47)
[2018-11-24] MEDS: ASPIRIN 325 MG TAB PO SCH (08:47)
--- NOTE | 2018-11-24 08:47 | CONS ---
Consult Date/Type/Reason Admit Date/Time November 03, 2018 at 10:30 Initial Consult Date 11/14/18 Type of Consultation: Urology Reason for Consultation Hematuria Requesting Provider: BRANDT RAMÍREZ Date/Time of Note DATE: 11/24/18 TIME: 08:46 Subjective Patient condition is unchanged, no events overnight Objective Vitals Vital Signs Date Temp Pulse Resp B/P (MAP) Pulse Ox O2 O2 Flow FiO2 Time Delivery Rate 11/24/18 96 5.0 28 08:35 11/24/18 78 20 Aerosol 08:35 T Tube 11/24/18 98.3 99/62 (74) 07:36 Intake and Output 11/23/18 11/23/18 11/24/18 1515:00 23:00 07:00 IntakeIntake Total 300 ml 1300 ml OutputOutput Total 250 ml 1150 ml 400 ml BalanceBalance 50 ml 150 ml -400 ml Exam The bladder is not distended, he has been urinating and the urine is clear Results/Medications Result Diagram: 11/21/1845211/21/18 045 Home Meds Active Scripts Metoprolol Tartrate* (Lopressor*) 25 Mg Tab, 50 MG PO BID, #60 TAB Prov:NICOLE LAN MAIL MESSENGER CONTRACTOR 11/18/18 Reported Medications Zinc Sulfate* (Zinc Sulfate*) 220 Mg Tablet, 220 MG GTB DAILY, TAB STOP TAKING 11/21/18 11/03/18 Ascorbic Acid* (Vitamin C*) 500 Mg Capsule.sa, 500 MG GTB DAILY, CAP 11/03/18 Valproic Acid* (Valproic Acid* Liq) 250 Mg/5 Ml Syrup, 10 ML GTB BID, ML 11/03/18 Acetaminophen* (Tylenol*) 325 Mg Tablet, 650 MG GTB Q4H PRN for MILD PAIN LEVEL 1-3, TAB AND FEVER 101F,STOP DATE 12/21/18 11/03/18 Risperidone* (Risperdal*) 1 Mg Tablet, 2 MG GTB DAILY, TAB STOP DATE 11/05/18 11/03/18 Hydrocodone/Acetaminophen ([place] 5-325 Tablet) 1 Each Tablet, 1 EACH GTB Q6H PRN for PAIN 7-9/10, TAB 11/03/18 Multivitamin with Minerals (Multivitamins with Minerals) 1 Each Tablet, 1 EACH GTB DAILY, TAB 11/03/18 Magnesium Hydroxide* (Milk Of Magnesia*) 400 Mg/5 Ml Oral.susp, 30 ML GTB NEEDED, ML 11/03/18 Gabapentin* (Gabapentin*) 300 Mg Capsule, 600 MG GTB BID, #180 CAP 11/03/18 Bisacodyl (Dulcolax) 10 Mg Supp.rect, 10 MG RC PRN, SUPP.RECT 11/03/18 Docusate Sodium* (Colace*) 100 Mg Capsule, 200 MG GTB QHS, #60 CAP 11/03/18 Clonidine Hcl* (Clonidine Hcl*) 0.1 Mg Tab, 0.2 MG GTB Q8H PRN for HTN, TAB HOLD FOR SBPBELOW 110 OR HR BELOW 60 11/03/18 Chlorhexidine Gluconate (Periogard) 473 Ml Mouthwash, 15 ML MM Q12H, BOTTLE 11/03/18 Atorvastatin* (Atorvastatin*) 40 Mg Tablet, 80 MG GTB QHS, #30 TAB 11/03/18 Albuterol Sulfate* (Albuterol Sulfate* Neb) 0.083%-3 Ml Neb, 2.5 MG NEB Q6H PRN for WHEEZING AND SOB, #30 VIAL AND NEEDED Q3H 11/03/18 Lactobacillus Acidophilus/Pect (Acidophilus-Pectin Capsule) 1 Each Capsule, 1 EACH GTB DAILY, CAP 11/03/18 Medications Current Medications Naloxone HCl (Narcan) 1 mg Q2M PRN IV LETHARGY Last administered on 11/03/18at 07:19; Admin Dose 1 MG; Start 11/03/18 at 07:00 IV Flush (NS 3 ml) 3 ml PER PROTOCOL IV ; Start 11/03/18 at 12:00 Ondansetron HCl (Zofran Inj) 4 mg Q6H PRN IV NAUSEA/VOMITING Last administered on 11/07/18at 17:46; Admin Dose 4 MG; Start 11/03/18 at 12:00 Acetaminophen (Tylenol Tab) 650 mg Q6H PRN PO .PAIN 1-3 OR TEMP Last administered on 11/12/18at 08:45; Admin Dose 650 MG; Start 11/03/18 at 12:00 Acetaminophen/ Hydrocodone Bitart ([place] (5/325)) 1 tab Q6H PRN PO .MOD PAIN 4- 6 Last administered on 11/17/18 15:17; Admin Dose 1 TAB; Start 11/03/18 at 12:00 Docusate Sodium (Colace) 100 mg Q12H PRN PO .CONSTIPATION; Start 11/03/18 at 12:00 Magnesium Hydroxide (Milk Of Mag) 30 ml DAILY PRN PO .CONSTIPATION Last administered on 11/07/18at 17:47; Admin Dose 30 ML; Start 11/03/18 at 12:00 Albuterol/ Ipratropium (Duoneb) 3 ml Q4H RESP THERAPY PRN HHN SHORTNESS OF BREATH Last administered on 11/06/18 05:07; Admin Dose 3 ML; Start 11/03/18 at 12:00 Hydralazine HCl (Apresoline) 10 mg Q6H PRN IV ELEVATED BLOOD PRESSURE; Start 11/03/18 at 12:00 Nitroglycerin (Nitroglycerin (Sl Tab) 0.4 Mg) 1 tab Q5M PRN SL ANGINA; Start 11/03/18 at 12:00 Ascorbic Acid (Vitamin C) 500 mg DAILY GTB Last administered on 11/23/18 08:58; Admin Dose 500 MG; Start 11/04/18 at 09:00 Atorvastatin Calcium (Lipitor) 80 mg QHS GTB Last administered on 11/23/18 20:36; Admin Dose 80 MG; Start 11/03/18 at 21:00 Bisacodyl (Dulcolax Supp) 10 mg DAILY PRN [place] CONSTIPATION; Start 11/03/18 at 12:00 Chlorhexidine Gluconate (Peridex) 15 ml Q12H MM Last administered on 11/24/18at 00:39; Admin Dose 15 ML; Start 11/03/18 at 12:00 Clonidine (Catapres) 0.2 mg Q8H PRN GTB SBP ABOVE 160; Start 11/03/18 at 12:00 Valproate Sodium (Depakene Liquid Cup) 500 mg BID GTB Last administered on 11/23/18 20:37; Admin Dose 500 MG; Start 11/03/18 at 21:00 Zinc Sulfate (Zinc Sulfate) 220 mg DAILY GTB Last administered on 11/23/18 08:58; Admin Dose 220 MG; Start 11/04/18 at 09:00 Lactobacillus Acidophilus/ Rhamnosus (Culturelle) 1 cap DAILY PO Last administered on 11/23/18 08:59; Admin Dose 1 CAP; Start 11/04/18 at 09:00 Multivitamins/ Minerals (Theragran-M) 1 tab DAILY PO Last administered on 11/23/18 08:58; Admin Dose 1 TAB; Start 11/04/18 at 09:00 Gabapentin (Neurontin) 600 mg BID GTB Last administered on 11/23/18 20:36; Admin Dose 600 MG; Start 11/04/18 at 12:00 Mupirocin (Bactroban) 1 applic BID TOP Last administered on 11/23/18 20:41; Admin Dose 1 APPLIC; Start 11/05/18 at 12:00 Diphenhydramine HCl (Benadryl) 25 mg Q6H PRN IV ITCHING Last administered on 11/18/18 19:54; Admin Dose 25 MG; Start 11/06/18 at 18:00 Famotidine (Pepcid) 20 mg BID GTB Last administered on 11/23/18 20:36; Admin Dose 20 MG; Start 11/07/18 at 09:00 Lorazepam (Ativan) 1 mg Q6H PRN IV AGITATION Last administered on 11/23/18 23:07; Admin Dose 1 MG; Start 11/15/18 at 20:06 Heparin Sodium (Porcine) (Heparin (5000 Units/1ml)) 5,000 unit BID SC Last administered on 11/23/18 20:38; Admin Dose 5,000 UNIT; Start 11/18/18 at 21:00 Quetiapine Fumarate (Seroquel) 100 mg DAILY PO Last administered on 11/23/18 08:58; Admin Dose 100 MG; Start 11/18/18 at 14:00 Metoprolol Tartrate (Lopressor) 25 mg BID PO Last administered on 11/23/18 20:37; Admin Dose 25 MG; Start 11/20/18 at 21:00 Aspirin (Aspirin) 325 mg DAILY PO Last administered on 11/23/18 08:59; Admin Dose 325 MG; Start 11/22/18 at 09:00 Quetiapine Fumarate (Seroquel) 50 mg HS PO Last administered on 11/23/18 20:36; Admin Dose 50 MG; Start 11/22/18 at 21:00 Risperidone (Risperdal) 2 mg DAILY PRN GTB agitation Last administered on 11/23/18at 14:46; Admin Dose 2 MG; Start 11/22/18 at 14:00 Assessment/Plan Hospital Course (Demo Recall) 43-year-old male with history of subarachnoid hemorrhage with 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 Patient was evaluated and was found to have had an episode of apnea and altered mental status, he also was found to have elevated troponin and renal insufficiency. He is known to have a history of hypertension and high cholesterol. He has a tracheostomy and G-tube and an indwelling Higgins catheter. He was noted to have gross hematuria and that has not cleared even though the patient was treated with antibiotic and is well hydrated. Since the Higgins catheter was discontinued the patient has been able to urinate on his own. He does use a urinal sometime and his urine is clear. There is no gross hematuria. Urologically he is stable and he has no longer a catheter and no hematuria therefore we will just observe EDWIN HOGAN MD Nov 24, 2018 08:47
[2018-11-24] MEDS: VALPROIC ACID LIQUID CUP 250 MG/5 ML CUP GTB SCH (08:48)
[2018-11-24] MEDS: METOPROLOL 25 MG TAB PO SCH (08:48)
[2018-11-24] MEDS: HEPARIN 5,000 UNIT/1 ML VIAL SC SCH (08:49)
[2018-11-24] MEDS: MUPIROCIN 2% 22 GM OINT TOP SCH (08:50)
--- NOTE | 2018-11-24 11:16 | PN ---
Date/Time of Note Date/Time of Note DATE: 11/24/18 TIME: 11:15 Assessment/Plan VTE Prophylaxis Risk score (from Ns)>0 risk: 6 SCD applied (from Ns): Yes Pharmacological prophylaxis: heparin Lines/Catheters IV [facility] Urinary Cath still in place: No Assessment/Plan Assessment/Plan 1. Acute embolic stroke- stable - Neurology consultation appreciated. 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 Hematuria- resolved - no noted episodes - H/H remains stable 3. FELECIA- resolved 4. Elevated troponins- downtrending - Cardiology on board - no noted chest pain 5. HTN - stable 6. HLD - on statin 7. Chronic respiratory failure - trach in place - continue respiratory care 8. GERD - H2 kendall 9. Agitation - resolved - continue seroquel 10. Disposition - Medically stable for discharge to SNF Result Diagram: 11/21/183 11/21/18 045 Subjective 24 Hr Interval Summary Free Text/Dictation Patient is resting comfortably. No acute distress. ambulating without any issues. Exam/Review of Systems Exam Vitals Vital Signs Date Temp Pulse Resp B/P (MAP) Pulse Ox O2 O2 Flow FiO2 Time Delivery Rate 11/24/18 5.0 09:00 11/24/18 96 28 08:35 11/24/18 78 20 Aerosol 08:35 T Tube 11/24/18 98.3 99/62 (74) 07:36 Intake and Output 11/23/18 11/23/18 11/24/18 1414:59 22:59 06:59 IntakeIntake Total 300 ml 1300 ml OutputOutput Total 250 ml 1150 ml 400 ml BalanceBalance 50 ml 150 ml -400 ml Exam General: no acute distress. resting comfortably Neck: supple, trach in place Chest: nontender CVS: S1, S2, regular rate and rhythm. no murmurs Lungs: clear to auscultation bilaterally. no wheezing or rhonchi Abd: soft, nontender, nondistended. no rebound or guarding. bowel sounds present diffusely Skin: warm, dry Medications Medication Current Medications Naloxone HCl (Narcan) 1 mg Q2M PRN IV LETHARGY Last administered on 11/03/18 07:19; Admin Dose 1 MG; Start 11/03/18 at 07:00 IV Flush (NS 3 ml) 3 ml PER PROTOCOL IV ; Start 11/03/18 at 12:00 Ondansetron HCl (Zofran Inj) 4 mg Q6H PRN IV NAUSEA/VOMITING Last administered on 11/07/18 17:46; Admin Dose 4 MG; Start 11/03/18 at 12:00 Acetaminophen (Tylenol Tab) 650 mg Q6H PRN PO .PAIN 1-3 OR TEMP Last administered on 11/12/18 08:45; Admin Dose 650 MG; Start 11/03/18 at 12:00 Acetaminophen/ Hydrocodone Bitart ([place] (5/325)) 1 tab Q6H PRN PO .MOD PAIN 4- 6 Last administered on 11/17/18 15:17; Admin Dose 1 TAB; Start 11/03/18 at 12:00 Docusate Sodium (Colace) 100 mg Q12H PRN PO .CONSTIPATION; Start 11/03/18 at 12:00 Magnesium Hydroxide (Milk Of Mag) 30 ml DAILY PRN PO .CONSTIPATION Last administered on 11/07/18 17:47; Admin Dose 30 ML; Start 11/03/18 at 12:00 Albuterol/ Ipratropium (Duoneb) 3 ml Q4H RESP THERAPY PRN HHN SHORTNESS OF BREATH Last administered on 11/06/18 05:07; Admin Dose 3 ML; Start 11/03/18 at 12:00 Hydralazine HCl (Apresoline) 10 mg Q6H PRN IV ELEVATED BLOOD PRESSURE; Start 11/03/18 at 12:00 Nitroglycerin (Nitroglycerin (Sl Tab) 0.4 Mg) 1 tab Q5M PRN SL ANGINA; Start 11/03/18 at 12:00 Ascorbic Acid (Vitamin C) 500 mg DAILY GTB Last administered on 11/24/18 08:47; Admin Dose 500 MG; Start 11/04/18 at 09:00 Atorvastatin Calcium (Lipitor) 80 mg QHS GTB Last administered on 11/23/18 20:36; Admin Dose 80 MG; Start 11/03/18 at 21:00 Bisacodyl (Dulcolax Supp) 10 mg DAILY PRN [place] CONSTIPATION; Start 11/03/18 at 12:00 Chlorhexidine Gluconate (Peridex) 15 ml Q12H MM Last administered on 11/24/18 00:39; Admin Dose 15 ML; Start 11/03/18 at 12:00 Clonidine (Catapres) 0.2 mg Q8H PRN GTB SBP ABOVE 160; Start 11/03/18 at 12:00 Valproate Sodium (Depakene Liquid Cup) 500 mg BID GTB Last administered on 11/24/18 08:48; Admin Dose 500 MG; Start 11/03/18 at 21:00 Zinc Sulfate (Zinc Sulfate) 220 mg DAILY GTB Last administered on 11/24/18 08:47; Admin Dose 220 MG; Start 11/04/18 at 09:00 Lactobacillus Acidophilus/ Rhamnosus (Culturelle) 1 cap DAILY PO Last administered on 11/24/18 08:47; Admin Dose 1 CAP; Start 11/04/18 at 09:00 Multivitamins/ Minerals (Theragran-M) 1 tab DAILY PO Last administered on 11/24/18 08:45; Admin Dose 1 TAB; Start 11/04/18 at 09:00 Gabapentin (Neurontin) 600 mg BID GTB Last administered on 11/24/18 08:46; Admin Dose 600 MG; Start 11/04/18 at 12:00 Mupirocin (Bactroban) 1 applic BID TOP Last administered on 11/24/18 08:50; Admin Dose 1 APPLIC; Start 11/05/18 at 12:00 Diphenhydramine HCl (Benadryl) 25 mg Q6H PRN IV ITCHING Last administered on 11/18/18 19:54; Admin Dose 25 MG; Start 11/06/18 at 18:00 Famotidine (Pepcid) 20 mg BID GTB Last administered on 11/24/18 08:46; Admin Dose 20 MG; Start 11/07/18 at 09:00 Lorazepam (Ativan) 1 mg Q6H PRN IV AGITATION Last administered on 11/23/18 23:07; Admin Dose 1 MG; Start 11/15/18 at 20:06 Heparin Sodium (Porcine) (Heparin (5000 Units/1ml)) 5,000 unit BID SC Last administered on 11/24/18 08:49; Admin Dose 5,000 UNIT; Start 11/18/18 at 21:00 Quetiapine Fumarate (Seroquel) 100 mg DAILY PO Last administered on 11/24/18 08:46; Admin Dose 100 MG; Start 11/18/18 at 14:00 Metoprolol Tartrate (Lopressor) 25 mg BID PO Last administered on 11/23/18 20:37; Admin Dose 25 MG; Start 11/20/18 at 21:00 Aspirin (Aspirin) 325 mg DAILY PO Last administered on 11/24/18 08:47; Admin Dose 325 MG; Start 11/22/18 at 09:00 Quetiapine Fumarate (Seroquel) 50 mg HS PO Last administered on 11/23/18 20:36; Admin Dose 50 MG; Start 11/22/18 at 21:00 Risperidone (Risperdal) 2 mg DAILY PRN GTB agitation Last administered on 11/23/18 14:46; Admin Dose 2 MG; Start 11/22/18 at 14:00 HERBERT POTTER MD Nov 24, 2018 11:16
--- NOTE | 2018-11-24 11:17 | PDOCDIS ---
Discharge Instructions DIAGNOSIS Discharge Diagnosis 1. Embolic stroke 2. Hematuria 3. Elevated troponins 4. Renal insufficiency 5. History of hypertension. 6. History of high cholesterol 7. Tracheostomy placement 8. Deep venous thrombosis prophylaxis 9. History of gastroesophageal reflux disease CONDITION [id number] Patient Condition: [id number] Stable HOME CARE INSTRUCTIONS: Salome Diet Instructions: [id number] Low Fat /Cholesterol FOLLOW UP/APPOINTMENTS Follow-up Plan 1. Follow up with your primary care physician in 1-2 weeks 2. Continue taking all medications as prescribed 3. If experiencing any concerning symptoms, please go to the nearest emergency department HERBERT POTTER MD Nov 24, 2018 11:17
[2018-11-24] MEDS ORDERED: QUET25TA33 PO (11:20)
[2018-11-24] MEDS ORDERED: QUET100T32 PO (11:20)
[2018-11-24] MEDS ORDERED: ASPI325T29 PO (11:20)
[2018-11-24] MEDS ORDERED: METO-448 PO (11:20)
[2018-11-24] MEDS: MAGNESIUM HYDROXIDE 30ML CUP PO PRN (12:05)
[2018-11-24 12:30] VITALS: BP 109/70; PULSE 73
--- NOTE | 2018-11-24 16:40 | DS ---
Date/Time of Note Date/Time of Note DATE: 11/24/18 TIME: 16:28 Discharge Summary Admission/Discharge Info Admit Date/Time November 03, 2018 at 10:30 Discharge Date/Time Nov 24, 2018 at 14:30 Discharge Diagnosis 1. Embolic stroke 2. Hematuria 3. Elevated troponins 4. Renal insufficiency 5. History of hypertension. 6. History of high cholesterol 7. Tracheostomy placement 8. Deep venous thrombosis prophylaxis 9. History of gastroesophageal reflux disease Patient Condition: Stable Consults Neurology- Dr. Nunes Urology- Dr. Cowart Pulmonology- Dr. Darden Cardiology- Dr. Russell Procedures DATE OF PROCEDURE: 11/10/2018 REASON FOR TRANSESOPHAGEAL ECHOCARDIOGRAM: Assess source of embolus. REQUESTING PHYSICIAN: Norman Payan MD, from the hospitalist service and neurology service. BRIEF HISTORY AND HOSPITAL COURSE: Mr. Churchill is a 43-year-old male with history of chronic respiratory failure status post trach, dysphagia status post G-tube, who presented with altered mental state who underwent a CT revealing a stroke possibly from an embolic source. Therefore, he has been requested to do transesophageal echo to assess for intracardiac source of thrombus. DESCRIPTION OF PROCEDURE: After informed consent was obtained, the patient was brought to the [facility] cardiac catheterization holding room where he was connected to the vent and received Versed and fentanyl conscious sedation under my direction with the patient's respiratory therapist at the bedside. The patient's trach cuff was released and the patient had a bite block placed in the mouth and a transesophageal echo probe was intubated to the patient's esophagus and using a multiplanar imaging and color flow Doppler interrogation, the patient's intracardiac structures were adequately interrogated. At this time, the patient's descending, transverse and ascending aorta were interrogated. The probe was removed. The patient was allowed to awake from his anesthetized, completing the procedure and there were no immediate complications. FINDINGS: 1. No definite left atrial or left atrial appendage thrombus. Left atrial appendage velocity approximately 40 cm per second but it should be noted that there was spontaneous contrast noted in the left atrial appendage. 2. Normal-appearing aortic valve apparatus, trace regurgitation. No ve getations or other intracardiac source of thrombus or vegetation noted on this valve. 3. Normal-appearing mitral valve apparatus with mild mitral regurgitation and no vegetations or other source of thrombus noted associated with this valve apparatus. 4. Pulmonic apparatus somewhat poorly visualized, but no definite findings of vegetations or other intracardiac mass or thrombus noted with this valve apparatus, no pulmonic regurgitation. 5. Normal-appearing tricuspid valve apparatus with trace to mild tricuspid regurgitation and no definite findings of thrombus and/or vegetations noted associated with this valve apparatus. 6. Normal left ventricular ejection fraction with no interventricular source of thrombus noted. 7. Color flow Doppler interrogation of the interatrial septum as well as, as stated, agitated contrast saline injection did not identify a patent foramen ovale or other interatrial septal defects. 8. Mild atherosclerotic plaquing in the patient's proximal descending, transverse and ascending aorta with no significant atherosclerotic plaquing. IMPRESSION: 1. No definite findings of intracardiac source of embolus found on this transesophageal study. 2. It should be noted that the patient did have findings of spontaneous contrast in the left atrial and left atrial appendage which could be a predictor for slow flow in these areas and, therefore, increased risk for thrombus formation such as in the setting of atrial fibrillation. RECOMMENDATIONS: At this time, would assess for alternative sources of thromboembolism including occult cardiac arrhythmia and/or for assessing the patient's aorta. Dictated By: NORMAN RUSSELL MD Hx of Present Illness A 43-year-old male with past medical history of subarachnoid hemorrhage that occurred about 3 months ago, status post [employer] shunt placement, history of tracheostomy placement apparently at that time, high cholesterol, hypertension, who was brought in from senior living facility earlier today to the ER. The patient over there at baseline apparently is normal, awake and alert and conversive according to the staff; however, they found an apneic this morning a nd he had altered level of consciousness. They checked his blood sugar. It was actually in the normal range 150, but he appeared to have slow respirations and they actually began bagging him through the tracheostomy site. The patient was also found to have a slightly low blood pressure and the patient became more unresponsive, so he was transferred over here to the ER. Over here, he had a head CT scan performed that showed no acute intracranial pathology, but there is a left transfrontal ventriculostomy catheter coursing into the left frontal horn terminating near the left foramen of [place] but no hydrocephalus noted. 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 The patient has chest x-ray as well that showed signs of bilateral airspace opacity representing atelectasis or pneumonia and he was given antibiotics in the ER today. His white blood cell count was normal. He was also found with elevated troponin today 0.335 and lactic acid was high at 3.4. Hospital Course Patient was admitted for assessment and treatment of altered mental status believed to be secondary to NSTEMI and pneumonia. Patient was started on IVF and broad spectrum antibiotics. Nephrology was consulted given acute renal failure and management of IVF. Cardiology was consulted for NSTEMI and medical management was optimized. Imaging studies performed to assess AMS in setting of history of SAH revealed embolic stroke and Neurology was consulted. JAKE was requested with negative findings for source of embolic stroke. Recommendations to avoid Ativan were given to be able to assess neurological status. patient was started on Seroquel to help control agitation. Patient was noted with hematuria which was most likely due to trauma to ly but urology was consulted for recommendations and monitoring. Pulmonology was consulted given increased O2 requirement and change in respiratory status given he was not vent dependent prior to admission. Patient was weaned off mechanical ventilation and transition to aerosol mist. Patients hematuria resolved and renal function returned to normal. Patients presenting symptoms improved significantly and worked with physical therapy who recommended SNF placement. CM arranged SNF placement and patient was discharged in stable condition. Home Meds Active Scripts Quetiapine Fumarate* (Quetiapine Fumarate*) 100 Mg Tablet, 100 MG PO DAILY for 30 Days, #30 TAB Prov:HERBERT POTTER MD 11/24/18 Quetiapine Fumarate* (Quetiapine Fumarate*) 25 Mg Tablet, 50 MG PO HS for 30 Days, #30 TAB Prov:HERBERT POTTER MD 11/24/18 Aspirin (Aspirin Lite-Coat) 325 Mg Tablet, 325 MG PO DAILY for 30 Days, #30 TAB Prov:HERBERT POTTER MD 11/24/18 Metoprolol Tartrate* (Lopressor*) 25 Mg Tab, 25 MG PO BID for 30 Days, #60 TAB Prov:HERBERT POTTER MD 11/24/18 Reported Medications Zinc Sulfate* (Zinc Sulfate*) 220 Mg Tablet, 220 MG GTB DAILY, TAB STOP TAKING 11/21/18 11/03/18 Ascorbic Acid* (Vitamin C*) 500 Mg Capsule.sa, 500 MG GTB DAILY, CAP 11/03/18 Valproic Acid* (Valproic Acid* Liq) 250 Mg/5 Ml Syrup, 10 ML GTB BID, ML 11/03/18 Acetaminophen* (Tylenol*) 325 Mg Tablet, 650 MG GTB Q4H PRN for MILD PAIN LEVEL 1-3, TAB AND FEVER 101F,STOP DATE 12/21/18 11/03/18 Multivitamin with Minerals (Multivitamins with Minerals) 1 Each Tablet, 1 EACH GTB DAILY, TAB 11/03/18 Magnesium Hydroxide* (Milk Of Magnesia*) 400 Mg/5 Ml Oral.susp, 30 ML GTB NEEDED, ML 11/03/18 Gabapentin* (Gabapentin*) 300 Mg Capsule, 600 MG GTB BID, #180 CAP 11/03/18 Bisacodyl (Dulcolax) 10 Mg Supp.rect, 10 MG RC PRN, SUPP.RECT 11/03/18 Docusate Sodium* (Colace*) 100 Mg Capsule, 200 MG GTB QHS, #60 CAP 11/03/18 Clonidine Hcl* (Clonidine Hcl*) 0.1 Mg Tab, 0.2 MG GTB Q8H PRN for HTN, TAB HOLD FOR SBPBELOW 110 OR HR BELOW 60 11/03/18 Chlorhexidine Gluconate (Periogard) 473 Ml Mouthwash, 15 ML MM Q12H, BOTTLE 11/03/18 Atorvastatin* (Atorvastatin*) 40 Mg Tablet, 80 MG GTB QHS, #30 TAB 11/03/18 Albuterol Sulfate* (Albuterol Sulfate* Neb) 0.083%-3 Ml Neb, 2.5 MG NEB Q6H PRN for WHEEZING AND SOB, #30 VIAL AND NEEDED Q3H 11/03/18 Lactobacillus Acidophilus/Pect (Acidophilus-Pectin Capsule) 1 Each Capsule, 1 EACH GTB DAILY, CAP 11/03/18 Follow-up Plan 1. Follow up with your primary care physician in 1-2 weeks 2. Continue taking all medications as prescribed 3. If experiencing any concerning symptoms, please go to the nearest emergency department Primary Care Provider Chad Beal MD Time spent on discharge: > 30 minutes HERBERT POTTER MD Nov 24, 2018 16:40
== END 2018-11-24 14:30 | DRG 207 ==
LOC: E/R 06:35 → 6WM 10:30 → SUATTDRO 11:38 → 6WM 16:34 → UNDOADMIN 16:34 → MS1 11-18 03:30
PROVIDERS: ADMIT Hospitalist; ATTEND Internal Medicine
PROC: 5A1955Z Respiratory Ventilation, Greater than 96 Consecutive Hours (ICD-10-PCS; principal; 2018-11-03)
PROC: B24BZZ4 Ultrasonography of Heart with Aorta, Transesophageal (ICD-10-PCS; 2018-11-10)
PROC: 0TPB70Z Removal of Drainage Device from Bladder, Via Natural or Artificial Opening (ICD-10-PCS; 2018-11-14)
PROC: 0T9B70Z Drainage of Bladder with Drainage Device, Via Natural or Artificial Opening (ICD-10-PCS; 2018-11-14)
DX: J18.9 Pneumonia, unspecified organism (principal); I21.A1 Myocardial infarction type 2; I63.49 Cerebral infarction due to embolism of other cerebral artery; G92 Toxic encephalopathy; N17.9 Acute kidney failure, unspecified; J96.10 Chronic respiratory failure, unspecified whether with hypoxia or hypercapnia; E87.2 Acidosis; E87.6 Hypokalemia; E78.5 Hyperlipidemia, unspecified; I10 Essential (primary) hypertension; I45.10 Unspecified right bundle-branch block; I69.091 Dysphagia following nontraumatic subarachnoid hemorrhage; K21.9 Gastro-esophageal reflux disease without esophagitis; R13.10 Dysphagia, unspecified; R31.9 Hematuria, unspecified; R29.721 NIHSS score 21; R40.2433 Glasgow coma scale score 3-8, at hospital admission; Z98.2 Presence of cerebrospinal fluid drainage device; Z93.0 Tracheostomy status; Z93.1 Gastrostomy status
CPT/HCPCS: 36415; 36600; 70450; 70496; 70498; 70551; 71045; 76775; 80048; 80053; 80061; 80164; 80202; 81001; 81003; 81240; 82043; 82140; 82550; 82553; 82803; 83036; 83090; 83605; 83735; 83890; 84100; 84145; 84155; 84300; 84439; 84443; 84484; 85025; 85240; 85300; 85302; 85305; 85378; 85610; 85613; 85651; 85730; 86146; 86147; 86592; 86703; 87070; 87081; 87086; 92526; 92610; 93005; 93306; 93312; 94002; 94003; 94640; 94664; 94772; 96365; 96366; 96367; 96372; 96375; 96376; 97161; 97166; J0692; J1200; J1630; J1644; J2060; J2250; J2310; J2405; J2543; J3010; J3370; J3480; J7030; Q9967

== ENCOUNTER 2018-11-28 09:13 | Emergency (ER) | payer MEDICAID, OTHER ==
[~2018-11-28] VITALS: Ht 165.1 cm; Wt 80.0 kg
[~2018-11-28 09:13] MED LIST: ACET325T33 GTB; ALBU2.5V3 NEB; ASCO500C7 GTB; ASPI325T29 PO; ATOR40TA68 GTB; BISA10SU55 RC; CHLO473M2 MM; CLON-379 GTB; DOCU-144 GTB; GABA300C16 GTB; LACT1CAP4 GTB; MAGN400O19 GTB; METO-448 PO; MULT-105 GTB; QUET100T32 PO; QUET25TA33 PO; VLP250480 GTB; ZINC220T GTB
[2018-11-28 09:15] VITALS: Ht 165.1 cm; Wt 80.0 kg
[2018-11-28] MEDS ORDERED: CRAN3875 GTB (10:30)
[2018-11-28] MEDS ORDERED: NA P230E RC (10:33)
[2018-11-28] MEDS ORDERED: AMIN30LI GTB (10:36)
[2018-11-28] MEDS ORDERED: ACET325T33 GTB ×2 (10:41)
[2018-11-28] MEDS ORDERED: ACET-141 GTB (10:41)
[2018-11-28] MEDS ORDERED: ASPI325T32 GTB (10:43)
[2018-11-28] MEDS ORDERED: METO25TA4 GTB (10:48)
[2018-11-28] MEDS ORDERED: CLON0.2T5 GTB (10:51)
--- NOTE | 2018-11-28 12:29 | ERD ---
ER Documentation Chief Complaint Chief Complaint aneta from [facility] possible post ictal from seizure HPI This is a 43-year-old male with a past medical history of hypertension, hyperlipidemia, previous stroke, previous subarachnoid hemorrhage, status post CHIEF WHARFINGER shunt, chronic respiratory failure status post chronic tracheostomy, seizure disorder, now presenting after a transient episode of brief unresponsiveness. There is no witnessed seizure event, but there were concerns that the patient could have had a seizure this morning. According to the paramedics, the patient was initially confused when they arrived, but the patient's mentation is since returned to baseline. The patient is currently alert and oriented x2-3. The patient feels well and would like to be discharged back to his facility. The patient denies feeling sick recently. The patient denies fever or chills. The patient has had no headache or vision changes. The patient does not endorse neck or back pain. The patient denies lightheadedness or dizziness. The patient has had no chest pain or trouble breathing. The patient denies nausea or vomiting. The patient denies abdominal pain. The patient denies changes to bowel movements or urination. The patient has had no focal deficits. The patient has had no weakness or numbness or tingling to the face or extremities. ROS All systems reviewed and are negative except as per history of present illness. Medications Home Meds Reported Medications Clonidine Hcl* (Clonidine Hcl*) 0.2 Mg Tablet, 0.2 MG GTB Q8, TAB PRN FOR SBP>150. DO NOT GIVE IF HR<50 11/28/18 Metoprolol Tartrate* (Lopressor*) 25 Mg Tablet, 25 MG GTB BID, #60 TAB HOLD FOR SBP<110 OR HR<60 11/28/18 Aspirin* (Aspirin* EC) 325 Mg Tab, 325 MG GTB DAILY, TAB 11/28/18 Acetaminophen* (Acetaminophen*) 500 MG Extra Strength Tablet, 1000 MG GTB Q4H PRN for PAIN 4-11/21, TAB 11/28/18 Acetaminophen* (Tylenol*) 325 Mg Tablet, 650 MG GTB NEEDED PRN for TRACH TUBE CHANGE, TAB 11/28/18 Acetaminophen* (Tylenol*) 325 Mg Tablet, 650 MG GTB BID PRN for PAIN AND OR ELEVATED TEMP, TAB 11/28/18 Amino Acids/Protein Hydrolys (PRO-STAT LIQUID) 30 Ml Liquid.pkt, 30 ML GTB DAILY 11/28/18 Na Phos,M-B/Na Phos,Di-Ba (Fleet Enema Extra) Unknown Strength Enema, 1 APPLIC RC Q2D, ENEMA 11/28/18 Cran/Vitc/Mannose/Inulin/Brom (Uti-Stat Liquid) 3,875 Mg/30 Ml Liquid, 30 ML GTB DAILY 11/28/18 Zinc Sulfate* (Zinc Sulfate*) 220 Mg Tablet, 220 MG GTB DAILY, TAB 11/03/18 Ascorbic Acid* (Vitamin C*) 500 Mg Capsule.sa, 500 MG GTB DAILY, CAP 11/03/18 Valproic Acid* (Valproic Acid* Liq) 250 Mg/5 Ml Syrup, 10 ML GTB BID, ML 11/03/18 Acetaminophen* (Tylenol*) 325 Mg Tablet, 650 MG GTB Q4H PRN for MILD PAIN LEVEL 1-3, TAB AND FEVER 101F,STOP DATE 12/21/18 11/03/18 Multivitamin with Minerals (Multivitamins with Minerals) 1 Each Tablet, 1 EACH GTB DAILY, TAB 11/03/18 Magnesium Hydroxide* (Milk Of Magnesia*) 400 Mg/5 Ml Oral.susp, 30 ML GTB NEEDED, ML DAILY 11/03/18 Gabapentin* (Gabapentin*) 300 Mg Capsule, 600 MG GTB BID, #180 CAP 11/03/18 Bisacodyl (Dulcolax) 10 Mg Supp.rect, 10 MG RC PRN, SUPP.RECT 11/03/18 Docusate Sodium* (Colace*) 100 Mg Capsule, 100 MG GTB BID, #60 CAP 11/03/18 Chlorhexidine Gluconate (Periogard) 473 Ml Mouthwash, 15 ML MM Q12H, BOTTLE 11/03/18 Atorvastatin* (Atorvastatin*) 40 Mg Tablet, 80 MG GTB QHS, #30 TAB 11/03/18 Lactobacillus Acidophilus/Pect (Acidophilus-Pectin Capsule) 1 Each Capsule, 1 EACH GTB DAILY, CAP 11/03/18 Discontinued Reported Medications Clonidine Hcl* (Clonidine Hcl*) 0.1 Mg Tab, 0.2 MG GTB Q8H PRN for HTN, TAB HOLD FOR SBPBELOW 110 OR HR BELOW 60 11/03/18 Albuterol Sulfate* (Albuterol Sulfate* Neb) 0.083%-3 Ml Neb, 2.5 MG NEB Q6H PRN for WHEEZING AND SOB, #30 VIAL AND NEEDED Q3H 11/03/18 Discontinued Scripts Quetiapine Fumarate* (Quetiapine Fumarate*) 100 Mg Tablet, 100 MG PO DAILY for 30 Days, #30 TAB Prov:HERBERT POTTER MD 11/24/18 Quetiapine Fumarate* (Quetiapine Fumarate*) 25 Mg Tablet, 50 MG PO HS for 30 Days, #30 TAB Prov:HERBERT POTTER MD 11/24/18 Aspirin (Aspirin Lite-Coat) 325 Mg Tablet, 325 MG PO DAILY for 30 Days, #30 TAB Prov:HERBERT POTTER MD 11/24/18 Metoprolol Tartrate* (Lopressor*) 25 Mg Tab, 25 MG PO BID for 30 Days, #60 TAB Prov:HERBERT POTTER MD 11/24/18 Allergies Allergies: Coded Allergies: No Known Allergy (Unverified , 11/28/18) PMhx/Soc History of Surgery: Yes (AV shunt) Hx Neurological Disorder: Yes (ICH) Hx Respiratory Disorders: Yes (Resp Failure) Hx Cardiac Disorders: No Hx Psychiatric Problems: Yes (Depression, psychosis) Hx Miscellaneous Medical Probl: Yes (subarachniud hemorrhage, s/p post CHIEF WHARFINGER shunt, acute embolic stroke, FELECIA, HTN) Hx Alcohol Use: No Hx Substance Use: No Hx Tobacco Use: No Smoking Status: Former smoker FmHx Family History: No diabetes Physical Exam Vitals Vital Signs Date Temp Pulse Resp B/P (MAP) Pulse Ox O2 O2 Flow FiO2 Time Delivery Rate 11/28/18 98.6 18 122/87 97 10:02 (99) 11/28/18 98.6 77 18 122/87 97 09:15 (99) Physical Exam Const: No apparent distress, well-developed, well-nourished Head: Normocephalic, Atraumatic Eyes: Normal Conjunctiva. Extraocular movements intact. Pupils equal, round and reactive to light ENT: Normal External Ears, Nose and Mouth. Neck: Full range of motion. No meningismus. Tracheostomy in appropriate position. Resp: Clear to auscultation bilaterally, No wheezes, rales or rhonchi Cardio: Regular rate and rhythm. No murmurs, rubs or gallops Abd: Soft, non tender, non distended. Normal bowel sounds. G-tube in place. Skin: No petechiae or rashes Back: No midline tenderness. No CVA tenderness Ext: No cyanosis, or edema Neur: Awake and alert. Cranial nerves intact. No facial droop. Normal strength, sensation and coordination. Psych: Normal Mood and Affect Result Diagram: 11/28/18 1035 11/28/18 1035 Results 24 hrs Laboratory Tests Test 11/28/18 10:35 White Blood Count 10.1 10^3/ul Red Blood Count 3.85 10^6/ul Hemoglobin 12.1 g/dl Hematocrit 36.4 % Mean Corpuscular Volume 94.5 fl Mean Corpuscular Hemoglobin 31.4 pg Mean Corpuscular Hemoglobin Concent 33.2 g/dl Red Cell Distribution Width 12.9 % Platelet Count 171 10^3/UL Mean Platelet Volume 10.9 fl Immature Granulocytes % 0.600 % Neutrophils % 71.4 % Lymphocytes % 16.7 % Monocytes % 9.8 % Eosinophils % 0.9 % Basophils % 0.6 % Nucleated Red Blood Cells % 0.0 /100WBC Immature Granulocytes # 0.060 10^3/ul Neutrophils # 7.2 10^3/ul Lymphocytes # 1.7 10^3/ul Monocytes # 1.0 10^3/ul Eosinophils # 0.1 10^3/ul Basophils # 0.1 10^3/ul Nucleated Red Blood Cells # 0.0 10^3/ul Sodium Level 142 mmol/L Potassium Level 3.8 mmol/L Chloride Level 103 mmol/L Carbon Dioxide Level 30 mmol/L Anion Gap 9 Blood Urea Nitrogen 17 mg/dl Creatinine 1.02 mg/dl Est Glomerular Filtrat Rate mL/min > 60 mL/min Glucose Level 91 mg/dl Calcium Level 9.4 mg/dl Procedures/MDM MDM The patient's presentation warrants further investigation. Previous medical records, if available, were reviewed. LABS The patient's laboratory testing was obtained and reviewed. No emergent treatment was required unless described below. CBC: No E/o systemic infection or severe anemia or thrombocytopenia. Mild normocytic anemia, not emergent. Chemistry: No E/o severe acidosis or alkalosis or renal failure or diabetic ketoacidosis. IMAGING Imaging and Radiology interpretation reviewed. CT Head FINDINGS: Again seen is left frontal approach shunt catheter, extending through the left frontal horn with tip at the left foramen of Monro, unchanged in appearance, as is ventricular size and configuration which are within normal limits. There is no new acute intracranial hemorrhage or extraaxial fluid collection, midline shift or mass effect. Embolization coils again seen at the level of the anterior communicating artery, along with small region of adjacent gliosis or encephalomalacia within the anterior inferior right frontal lobe, stable as is tiny lacunar focus within the right stinson radiata/centrum semiovale. There is now new hypodensity suggesting evolution of previous ischemia/infarcts within the bilateral globus pallidus and involving the posterior medial right parietal lobe near the vertex, without additional corresponding abnormality related to other foci of restricted diffusion within the bilateral cerebellum on the previous MRI. No identifiable acute territorial infarct, which may initially be inapparent by CT. Scattered small amounts of fluid within the bilateral mastoid air cells again seen. The visualized paranasal sinuses are clear. Calvarium is unchanged in appearance. IMPRESSION: New symmetric bilateral globus pallidus and posterior medial right parietal vertex hypodensity suggesting gliosis/encephalomalacia as sequela from the previously seen ischemia/infarcts on 11/05/2018 MRI. Allowing for this there is no acute territorial infarct, which may initially be inapparent by CT and for which MRI is considered more sensitive. Again seen is previous anterior communicating artery embolization with adjacent right anterior inferior frontal lobe encephalomalacia. Likewise stable appearance of left frontal approach shunt catheter, along with ventricular size and configuration which are stable and within normal limits. Small amounts of bilateral mastoid opacity are again present. Electronically viewed and signed by Enrique Gutierrez Physician on 11/28/2018 10:45 TREATMENT/DISPOSITION The patient presents after a transient episode of altered mentation. I do have high suspicion for a breakthrough seizure. The patient is now completely returned to baseline. The patient has no focal deficits. The neurologic exam is reassuring. I have decreased suspicion for cerebral ischemia. There was no trauma or injury. There is no personal or family history of cerebral aneurysm. I have decreased suspicion for SAH or other ICH. I have low suspicion for temporal arteritis, cavernous venous thrombosis, subdural hematoma, epidural hematoma, meningitis. The patient's symptoms are not consistent with a CHIEF WHARFINGER shunt malfunction. Other possible etiologies were considered. The patient has a reassuring physical exam. The patient is not clinically orthostatic. The patient is not dizzy. I have decreased suspicion for vertigo. The patient has no signs of emergent or symptomatic anemia. The patient does not have any emergent electrol yte or metabolic emergencies. I have decrease suspicion for a thyroid disorder. The patient is not toxic appearing. I have decreased suspicion for an infectious etiology of symptoms. I have low suspicion for acute coronary syndrome. I do not see evidence of any emergent cardiac arrhythmia, which includes but is not limited to heart block, Brugada syndrome or WPW. The patient has no heart murmurs or rales. I have low suspicion for hypertrophic cardiomyopathy. I do not see evidence of CHF. The pa tiemartha does not endorse any chest or pleuritic pain. The history is negative for bleeding or clotting disorders. The patient has not been involved in any recent prolonged trips or surgeries or hospitalizations. The patient has no calf tenderness or swelling. I have decreased suspicion for PE as the etiology of symptoms. I attempted to reach out to the patient's attending physician at the [facility] facility, Dr. Beal, but I was unable to reach him. The patient may follow-up with him on an outpatient basis. DISCHARGE Upon reevaluation of the patient, symptoms have improved. No emergent diagnoses were identified. At this time, I feel that the patient stable for discharge. The patient was instructed to follow-up with a primary care physician in 1-3 days. The patient will be given strict precautions with which to return to the emergency department. Prescriptions: None The patient's blood pressure was elevated at greater than 120/80 while in the emergency department. The patient was otherwise stable with no evidence of hypertensive urgency or emergency. The patient does not require admission for blood pressure control. I have discussed with the patient the risks of hypert ension. I have instructed the patient to return to the ER for any new or worsening symptoms including chest pain, shortness of breath, headache, blurred vision, confusion, nausea, vomiting or LOC. I have advised the patient to follow up with the primary care physician for outpatient monitoring and treatment for hypertension in 1-3 days. Disclaimer: Inadvertent spelling and grammatical errors are likely due to EHR/dictation software use and do not reflect on the overall quality of patient care. Note that the electronic time recorded on this note does not necessarily reflect the actual time of the patient encounter. Departure Diagnosis: Primary Impression: Transient alteration of awareness Additional Impressions: Breakthrough seizure Normocytic anemia Condition: Stable Patient Instructions: Seizure, Recurrent [Adult] Additional Instructions: Thank you for for coming to [facility] for your care today. Please ask your nurse or provider if you have questions about your care today and do not leave until all your questions have been answered. Please use any medications given as directed and follow-up with your doctor (or the doctor you were referred to) in the next 1-3 days. If you do not have a primary care doctor you may follow up at the [facility] or [facility] (listed below). You may also use motrin and tylenol as needed for fever and/or pain unless instructed otherwise by your provider or nurse. Indications for more urgent follow-up have been discussed, but you may return to the Emergency Department at ANY time for any worrisome or worsening symptoms. If you have abdominal pain, please know that no test or exam you received is perfect and you should follow up within 8 hours for continued pain. If you had any imaging studies today, such as an X-Ray or CT Scan, these studies will be reviewed later by a radiologist. You will be called if there are important findings that were not identified today, so make sure the contact information you provided at registration is correct. If you received any narcotic pain control medicine today, such as Vicodin, Morphine or Dilaudid, your coordination and judgment may be affected for a number of hours. Please do not drive or operate heavy machinery, and you may want someone to assist you at home. If you were given a prescription for narcotic medication, be aware that it is very addictive- use sparingly and only if necessary. PLEASE SEEK FURTHER EVALUATION AND MANAGEMENT AT YOUR DOCTORS OFFICE WITHIN THE NEXT 1-3 DAYS. IT IS YOUR RESPONSIBILITY TO MAKE AN APPOINTMENT FOR FOLOW-UP CARE. IF YOU HAVE A PRIMARY DOCTOR, PLEASE CALL THEIR OFFICE TO SCHEDULE AN APPOINTMENT FOR FOLLOW UP. IF YOU DO NOT HAVE A PRIMARY DOCTOR YOU CAN CALL OUR PHYSICIAN REFERRAL HOTLINE AT IF YOU CAN NOT AFFORD TO SEE A PHYSICIAN YOU CAN CHOSE FROM THE FOLLOWING [facility] CLINICS: [facility] [address] [address] [facility]. [facility] [address] [facility] [facility] [address] [facility] [address] [facility] [address]. [facility]. [address] BETO BERGERON MD Nov 28, 2018 12:29
[2018-11-28 14:20] VITALS: BP 99/70; PULSE 51; RESP 18
== END 2018-11-28 14:23 | disposition home or self-care (01) ==
LOC: E/R 09:13
DX: G40.909 Epilepsy, unspecified, not intractable, without status epilepticus (principal); D64.9 Anemia, unspecified; I10 Essential (primary) hypertension; R40.2142 Coma scale, eyes open, spontaneous, at arrival to emergency department; R40.2252 Coma scale, best verbal response, oriented, at arrival to emergency department; R40.2362 Coma scale, best motor response, obeys commands, at arrival to emergency department; Z86.73 Personal history of transient ischemic attack (TIA), and cerebral infarction without residual deficits; Z87.891 Personal history of nicotine dependence
CPT/HCPCS: 70450; 80048; 85025; Z7502